=== PATIENT | female | born 1945 | race Caucasian/White ===

== ENCOUNTER 2020-08-08 20:45 | Inpatient (IN) | payer MEDICARE, SELFPAY ==
[2020-08-08 20:46] VITALS: BP 105/57; PULSE 95; RESP 16; TEMP 36.4; O2SAT 97; BMI 31.1
--- NOTE | 2020-08-08 21:02 | PC.NURSE ---
Received pt from home with c/o lower abdominal pain
--- NOTE | 2020-08-08 21:27 | XRR_ITS ---
PROCEDURE INFORMATION: Exam: XR Chest, 1 View Exam date and time: 08/08/2020 9:52 PM Age: 75 years old Clinical indication: Dyspnea; Additional info: SOB TECHNIQUE: Imaging protocol: XR of the chest Views: 1 view. COMPARISON: No relevant prior studies available. FINDINGS: Lungs: Emphysema with interstitial prominence in both lungs. Ground-glass opacity in the left lung base. Atelectasis in the right base. Pleural space: Unremarkable. No pleural effusion. No pneumothorax. Heart/Mediastinum: Unremarkable. No cardiomegaly. Bones/joints: Scoliosis. XR/XR chest 1V [id number] IMPRESSION: Ground-glass opacity in the left lung base could represent atelectasis or pneumonia.
--- NOTE | 2020-08-08 21:40 | ED_ITS ---
HPI - Back Pain/Injury General: Chief Complaint: Back Pain/Injury Stated Complaint: LOWER BACK PAIN Time Seen by Provider: 08/08/20 20:55 History of Present Illness: HPI Narrative: 75-year-old female presenting with right-sided lower back pain. No radicular pain down her leg. She says that she gets this kind of back pain with urinary tract infections, and it seems that that is the case. She also says she has been a little bit more short of breath lately but does not know why. She perhaps has been slightly coughing more than usual, though not much. She does not have a fever. There is no numbness, tingling, or weakness associated with her back pain. MD elicited complaint: back pain Pertinent past history: prior back pain Timing: constant Severity: moderate Quality: dull and stabbing Location: lumbar spine and right flank Radiation: none Exacerbating factors: movement Relieving factors: none Associated symptoms: Deny abdominal pain, chills, dysuria, fever(s), hematuria, nausea or vomiting Review of Systems Const: Denies: fever(s) or chills Eyes: Denies: change in vision ENMT: Denies: odynophagia or sinus pain Card: Denies: chest pain, palpitations or irregular heart rhythm Resp: Reports: dyspnea and non-productive cough; Denies: productive cough GI: Denies: abdominal pain, nausea, vomiting or melena : Denies: dysuria, urinary frequency or hematuria Musc: Reports: back pain; Denies: neck pain or joint redness Skin/Breast: Denies: rash or erythema Neuro: Denies: headache(s), dizziness, vertigo or confusion Psych: Denies: anxiety Physical Exam Const: GENERAL APPEARANCE: well developed ORIENTATION/CONSCIOUSNESS: Yes oriented to person, Yes oriented to place and Yes oriented to time HENMT: COMMON NORMALS: normocephalic, external ears normal and Normal external nose present HEAD & SCALP: normocephalic FACE & SINUS: normal facial exam NOSE: Normal external nose present and No nasal discharge present EXTERNAL EAR: Yes external ears normal Eye: COMMON NORMALS: Equal, round and reactive pupils present, EOMs intact bilaterally and conjunctivae normal EYELID: eyelids normal CONJUNCTIVA: Yes conjunctivae normal PUPIL: Yes Equal, round and reactive pupils present Neck/C-Spine: GENERAL: No tracheal deviation Chest: COMMONS NORMALS: normal inspection of the chest CHEST: No tenderness Resp: COMMON NORMALS: clear to auscultation bilaterally EFFORT & INSPECTION: No tachypneic, No respiratory distress, No retractions, No uses accessory muscles and No tracheal deviation AUSCULTATION: clear to auscultation bilaterally, no rhonchi, no wheezes and lung sounds not diminished Cardio: COMMON NORMALS: regular rate and regular rhythm RATE: regular rate RHYTHM: regular rhythm HEART SOUNDS: no murmurs PERIPHERAL PULSES: radial pulses present GI: INSPECTION: No abdominal distension AUSCULTATION: No Hyperactive bowel sounds present and No Hypoactive bowel sounds present PALPATION: No Guarding due to palpation present (GI) and No Rigid due to palpation PERCUSSION: no dullness to percussion and no tympanic to percussion Back/Pelvis: GENERAL BACK: Yes CVA tenderness CVA tenderness: right (mild) LUMBAR SPINE/LOWER BACK: Yes normal to inspection and Yes lumbar spinal tenderness (mild mid to lower) Neuro: SENSORIUM/ORIENTATION: Yes oriented to person, Yes oriented to place and Yes oriented to time Psych: COMMON NORMALS: mental status grossly normal Skin: COMMON NORMALS: no rashes or lesions noted GENERAL SKIN EXAM: no rashes or lesions noted Course Consultations: Consultation #1: jose Vital Signs: Vital signs: Vital Signs Temperature 97.4 F L 08/09/20 02:26 Pulse Rate 109 H 08/09/20 02:30 Respiratory Rate 22 H 08/09/20 02:30 Blood Pressure 107/90 08/09/20 02:30 Pulse Oximetry 100 08/09/20 02:29 MDM - Back Pain/Injury MDM Narrative: Medical decision making narrative: 75-year-old lady presents with back pain, and some shortness of breath. He has not had a fever. She has not had much of a cough. Was normotensive. Oxygen saturations have been good on 2 L. Her hemoglobin is 6.3. She notes now, that she has had transfusions before for anemia. BUN 38, creatinine 3.0. Potassium is normal. Chest x-ray showed some possible minimal basilar infiltrates bilaterally. Because of the anemia, and the back pain, CT was performed, and shows mild bibasilar infiltrates to the lungs. There is no fluid collection or evidence of aortic dissection. No renal abscess. She does have turbid, purulent urine. Levaquin was started for this. She will be rapid tested for Covid given the bibasilar infiltrates and shortness of breath, although her shortness of breath is likely coming from the profound anemia. She is crossmatched for 2 units so far. Lab Data: Labs: Lab Results 08/08/20 08/08/20 08/08/20 Range/Units 20:56 20:56 20:56 WBC 11.2 H (4.0-10.0) 10^3/ uL RBC 2.39 L (4.1-5.3) 10^6/u L Hgb 6.3 L* (11.5-15.3) g/dL Hct 21.2 L (37.0-47.0) % MCV 88.7 (81-99) fL MCH 26.4 L (28.0-34.0) pg MCHC 29.7 L (30.0-36.0) g/dL RDW 15.9 H (12.1-15.1) % Plt Count 306 (130-400) 10^3/c mm MPV 9.7 (7.4-10.4) fL Neut % (Auto) 85.5 % Lymph % (Auto) 9.7 % Glasscock % (Auto) 3.8 % Eos % (Auto) 0.2 % Baso % (Auto) 0.2 % Neut # (Auto) 9.57 H (1.8-7.7) 10^3/u L Lymph # (Auto) 1.1 (0.8-4.8) 10^3/u L Glasscock # (Auto) 0.4 (0.2-0.9) 10^3/u L Eos # (Auto) 0.0 (0.0-0.8) 10^3/u L Baso # (Auto) 0.0 (0.0-0.1) 10^3/u L Nucleated RBC % (a uto) 0 % Nucleated RBCs # 0.0 /100WBC Sodium 135 L (136-145) mmol/L Potassium 4.5 (3.5-5.1) mmol/L Chloride 98 (98-107) mmol/L Carbon Dioxide 19 L (22-29) mmol/L Anion Gap 22.5 H (5-19) BUN 38 H (8-23) mg/dL Creatinine 3.0 H (0.5-0.9) mg/dL GFR Calculation Not Reportable Glucose 194 H (65-115) mg/dL POC Glucose (70-110) mg/dL Calculated Osmolal ity 294 (285-295) mOsm/k g Lactate 2.5 H (0.5-2.2) mmol/L Calcium 9.2 (8.5-10.5) mg/dL Total Bilirubin 0.2 (0.15-1.2) mg/dL AST 22 (0-32) U/L ALT 10 (0-33) U/L Alkaline Phosphata se 142 H (35-105) IU/L C-Reactive Protein 249.9 H (0.0-4.9) mg/L Total Protein 7.8 (6.6-8.7) g/dL Albumin 3.4 L (3.5-5.2) g/dL Globulin 4.4 (1.3-4.6) g/dL Procalcitonin 0.56 H (0-0.5) ng/mL Urine Color (Yellow) Urine Appearance (CLEAR) Urine pH (5-7) Ur Specific Gravit y (1.005-1.030) Urine Protein (Negative) Urine Glucose (UA) (Normal) Urine Ketones (Negative) Urine Blood (Negative) Urine Nitrate (Negative) Urine Bilirubin (Negative) Urine Urobilinogen (Negative) mg/dL Ur Leukocyte Tiffany ase (Negative) Urine RBC (0-2) /hpf Urine WBC (0-5) /hpf Ur Squamous Epith Cells (0-5) /hpf Amorphous Sediment Urine Bacteria (NONE) /hpf Blood Type Rho(D) Type Antibody Screen Crossmatch 08/08/20 08/09/20 08/09/20 Range/Units 22:58 00:09 00:55 WBC (4.0-10.0) 10^3/ uL RBC (4.1-5.3) 10^6/u L Hgb (11.5-15.3) g/dL Hct (37.0-47.0) % MCV (81-99) fL MCH (28.0-34.0) pg MCHC (30.0-36.0) g/dL RDW (12.1-15.1) % Plt Count (130-400) 10^3/c mm MPV (7.4-10.4) fL Neut % (Auto) % Lymph % (Auto) % Glasscock % (Auto) % Eos % (Auto) % Baso % (Auto) % Neut # (Auto) (1.8-7.7) 10^3/u L Lymph # (Auto) (0.8-4.8) 10^3/u L Glasscock # (Auto) (0.2-0.9) 10^3/u L Eos # (Auto) (0.0-0.8) 10^3/u L Baso # (Auto) (0.0-0.1) 10^3/u L Nucleated RBC % (a uto) % Nucleated RBCs # /100WBC Sodium (136-145) mmol/L Potassium (3.5-5.1) mmol/L Chloride (98-107) mmol/L Carbon Dioxide (22-29) mmol/L Anion Gap (5-19) BUN (8-23) mg/dL Creatinine (0.5-0.9) mg/dL GFR Calculation Glucose (65-115) mg/dL POC Glucose 252 (70-110) mg/dL Calculated Osmolal ity (285-295) mOsm/k g Lactate (0.5-2.2) mmol/L Calcium (8.5-10.5) mg/dL Total Bilirubin (0.15-1.2) mg/dL AST (0-32) U/L ALT (0-33) U/L Alkaline Phosphata se (35-105) IU/L C-Reactive Protein (0.0-4.9) mg/L Total Protein (6.6-8.7) g/dL Albumin (3.5-5.2) g/dL Globulin (1.3-4.6) g/dL Procalcitonin (0-0.5) ng/mL Urine Color Straw (Yellow) Urine Appearance Turbid (CLEAR) Urine pH 5 (5-7) Ur Specific Gravit y 1.015 (1.005-1.030) Urine Protein Trace (Negative) Urine Glucose (UA) Norm (Normal) Urine Ketones Negative (Negative) Urine Blood 3+ H (Negative) Urine Nitrate Positive H (Negative) Urine Bilirubin Neg (Negative) Urine Urobilinogen Norm (Negative) mg/dL Ur Leukocyte Tiffany ase 2+ H (Negative) Urine RBC 5-10 H (0-2) /hpf Urine WBC Too numerous to c nt H (0-5) /hpf Ur Squamous Epith Cells 5-10 H (0-5) /hpf Amorphous Sediment Not Reportable Urine Bacteria 4+ H (NONE) /hpf Blood Type A Positive Rho(D) Type Positive Antibody Screen Negative Crossmatch See Detail Discharge Plan Discharge Patient Disposition: Admitted As Inpatient Clinical Impression: Urinary tract infection Qualifiers: Urinary tract infection type: acute cystitis Hematuria presence: without hematuria Qualified Code(s): N30.00 - Acute cystitis without hematuria Anemia Qualifiers: Anemia type: iron deficiency Iron deficiency anemia type: unspecified iron deficiency Qualified Code(s): D50.9 - Iron deficiency anemia, unspecified Condition: Stable Coding Level of Care Code 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
--- NOTE | 2020-08-08 21:40 | PC.NURSE ---
Pt to [facility]. Unable to void
--- NOTE | 2020-08-08 21:49 | PC.NURSE ---
Notified provider pt unable to provide a sample of Urine. per provider okay to drink water.
[2020-08-08 22:53] VITALS: BP 137/60; PULSE 89; RESP 18; O2SAT 98
[2020-08-08 23:32] LABS: Glucose Urine UA Norm (Normal); Ketones Urine Negative (Negative); Protein Urine Trace (Negative); Specific Gravity, Urine 1.015 (1.005-1.030); Urine Appearance Turbid (CLEAR); Urine Color Straw (Yellow); pH Urine 5 (5-7)
[2020-08-08 23:33] LABS: Add Urine Microscopic? YES; Bilirubin Urine Neg (Negative); Blood Urine 3+ (Negative); Leukocyte Esterase Urine 2+ (Negative); Nitrate Urine Positive (Negative); Urobilinogen Urine Norm (Negative)
[2020-08-08 23:34] LABS: Add Urine Culture? Yes; Bacteria Urine 4+ /hpf; WBC Urine TOO NUMEROUS TO CNT /hpf (0-5)
[2020-08-08 23:37] VITALS: BP 120/74; PULSE 89; RESP 18; O2SAT 100
[2020-08-08 23:43] LABS: Basophils % 0.2 %; Eosinophils % 0.2 %; Hematocrit 21.2 % (37.0-47.0); Lymphocytes # 1.1 10^3/uL (0.8-4.8); Lymphocytes % 9.7 %; Mean Corpuscular HGB Conc 29.7 g/dL (30.0-36.0); Mean Corpuscular Hemoglobin 26.4 pg (28.0-34.0); Mean Corpuscular Volume 88.7 fL (81-99); Mean Platelet Volume 9.7 fL (7.4-10.4); Monocytes # 0.4 10^3/uL (0.2-0.9); Monocytes % 3.8 %; Neutrophils # 9.57 10^3/uL (1.8-7.7); Neutrophils % 85.5 %; Nucleated Red Blood Cells % 0 %; Platelet Count 306 10^3/cmm (130-400); Red Blood Count 2.39 10^6/uL (4.1-5.3); Red Cell Distribution Width 15.9 % (12.1-15.1); White Blood Count 11.2 10^3/uL (4.0-10.0)
[2020-08-08 23:52] LABS: Hemoglobin 6.3 g/dL (11.5-15.3)
[2020-08-08 23:57] LABS: Alanine Aminotransferase 10 U/L (0-33); Albumin Level 3.4 g/dL (3.5-5.2); Alkaline Phosphatase 142 IU/L (35-105); Anion Gap 22.5 (5-19); Aspartate Amino Transferase 22 U/L (0-32); Blood Urea Nitrogen 38 mg/dL (8-23); C Reactive Protein 249.9 mg/L (0.0-4.9); Calcium 9.2 mg/dL (8.5-10.5); Carbon Dioxide 19 mmol/L (22-29); Chloride 98 mmol/L (98-107); Globulin 4.4 g/dL (1.3-4.6); Glucose 194 mg/dL (65-115); Osmolality Calculated 294 mOsm/kg (285-295); Potassium 4.5 mmol/L (3.5-5.1); Sodium 135 mmol/L (136-145); Total Bilirubin 0.2 mg/dL (0.15-1.2); Total Protein 7.8 g/dL (6.6-8.7)
[2020-08-09] VITALS (129 sets, daily range): BP systolic 88–158; BP diastolic 53–90; PULSE 68–112; RESP 11–30; TEMP 36.3–37; O2SAT 84–100
[2020-08-09] LABS: Lactate (Lactic Acid level) 2.5 mmol/L (0.5-2.2)
[2020-08-09 00:13] LABS: Glucose Point of Care 252 mg/dL (70-110)
--- NOTE | 2020-08-09 00:17 | CTR_ITS ---
PROCEDURE INFORMATION: Exam: CT Abdomen And Pelvis Without Contrast Exam date and time: 08/09/2020 12:21 AM Age: 75 years old Clinical indication: Abdominal pain; Right; Patient HX: C/O R flank pain and anemia; Additional info: Back pain, anemia TECHNIQUE: Imaging protocol: Computed tomography of the abdomen and pelvis without contrast. Radiation optimization: All CT scans at this facility use at least one of these dose optimization techniques: automated exposure control; mA and/or kV adjustment per patient size (includes targeted exams where dose is matched to clinical indication); or iterative reconstruction. COMPARISON: [facility] Renal 01/25/2018 9:10 AM RADIATION DOSE METRICS: Total DLP (mGy-cm): 1244.95 FINDINGS: Lungs: Bibasilar relatively symmetric pulmonary parenchymal abnormalities are noted with ground-glass components. Liver: Normal. No mass. Gallbladder and bile ducts: 4 mm calcification within gallbladder is suspected to represent gallstone. Gallbladder is otherwise unremarkable. Pancreas: Normal. No ductal dilation. Spleen: Calcified splenic granulomatous change noted. Adrenal glands: Normal. No mass. Kidneys and ureters: Mild/early atrophy of right kidney. Scarring also seen at upper right kidney. No hydronephrosis. Stomach and bowel: Colonic diverticuli noted. No evident pericolic inflammatory change. No findings of abnormal bowel distention. Appendix: No evidence of appendicitis. Intraperitoneal space: Unremarkable. No free air. No significant fluid collection. Vasculature: Vascular calcifications are noted. No abdominal aortic aneurysm. Lymph nodes: Unremarkable. No enlarged lymph nodes. Urinary bladder: Unremarkable as visualized. Reproductive: Unremarkable as visualized. Bones/joints: No acute fracture. Soft tissues: Umbilical hernia contains a short segment of transverse colon that does not appear obstructed. CT/CT abdomen pelvis wo con [id number] IMPRESSION: Bibasilar pulmonary infiltrates are favored to be either inflammatory or infectious. Gallstone in gallbladder. Umbilical hernia containing nonobstructed colon. Additional details as above. Radiation Dose CTDIVOL = (mGy): DLP = 1244.95 (mGy-cm)
--- NOTE | 2020-08-09 00:43 | ECG_ITS ---
[facility] Test Date: 2020-08-09 Pat Name: Susan Resendiz Department: Room: ICU19 Gender: Female Data Engineer: : 1945 Requested By: Michael Pena Order Number: [id number] Anaid MD: MEHNAZ TAVERAS Measurements Intervals [place] Rate: 86 P: 64 FL: 147 QRS: 58 QRSD: 88 T: 57 QT: 340 QTc: 409 Interpretive Statements SINUS RHYTHM LOW QRS VOLTAGE IN PRECORDIAL LEADS [QRS DEFLECTION < 1.0 mV IN CHEST LEADS] INTERPRETATION BASED ON A DEFAULT AGE OF 40 YEARS Compared to ECG 01/23/2018 17:53:53 No significant changes Electronically Signed On 08-09-2020 15:47:23 RADIO COMMUNICATIONS MECHANICIAN by MEHNAZ TAVERAS [id number] f
[2020-08-09 00:56] LABS: Procalcitonin 0.56 ng/mL (0-0.5)
--- NOTE | 2020-08-09 01:00 | PC.NURSE ---
Consent sign for blood transfusion
[2020-08-09] MEDS: sodium chloride 0.9% 1,000 ML 999 ML IV (01:13)
[2020-08-09] MEDS: sodium chloride 0.9% 100 mL Bag 50 ML IV (01:13)
[2020-08-09] MEDS: levofloxacin-dextrose 5 % 500 MG/100 ML PREMIX 100 MG IV (01:18)
--- NOTE | 2020-08-09 01:24 | PC.NURSE ---
Prep for blood transfusion Pt c/o about back pain and being uncomfortable. Notified provider.
[2020-08-09] MEDS: morphine 4 mg/mL SDV 1 mL 2 MG IVP ×2 (01:35→09:05)
[2020-08-09] MEDS: ondansetron 2 mg/ML SDV 2 mL 4 MG IVP ×4 (01:35→12:00)
--- NOTE | 2020-08-09 02:27 | PC.NURSE ---
Admitting provider at bedside
--- NOTE | 2020-08-09 02:29 | PC.NURSE ---
Pt stated she uses 4L NC of oxygen at home
--- NOTE | 2020-08-09 02:33 | PC.NURSE ---
L BP 117/74 R 126/70
--- NOTE | 2020-08-09 02:42 | PC.NURSE ---
Pt continues to vomit undigested food. provider aware, order for medication for vomiting. Pt removed 02 to clean nose. SP02 dropped to 87%. Replaced 02 at NC 4L, return to 96% within a few minutes.
--- NOTE | 2020-08-09 02:45 | PC.NURSE ---
Pt state I think I have a UTI
[2020-08-09] MEDS: metoclopramide 5 mg/mL SDV 2 mL IVP (02:49)
[2020-08-09] MEDS: FUROsemide 10 mg/mL SDV 2mL 20 MG IVP ×2 (02:54→06:34)
--- NOTE | 2020-08-09 02:57 | PM.HP ---
Providers/Chief Complaint Admitting Physician: Brian Mcdonough MD Chief Complaint: LOWER BACK PAIN History of Present Illness Susan Resendiz is a 75 year old female with PMH of COPD on 4L home oxygen came in with c/o Lower back pain as well as worsening sob for the last 3 days,according to her she think these are her UTI symptoms ( back pain, worsening SOB on minimal exertion). upon arrival in the ER she was worked up for above mentioned complaints.As a part of work up Rapid COVID was also ordered.RAPID COVID came back Positive. Imaging Studies : CT abdomen pelvis wo con: Bibasilar pulmonary infiltrates are favored to be either inflammatory or infectious. Gallstone in gallbladder. Umbilical hernia containing nonobstructed colon. Xray Chest : Ground-glass opacity in the left lung base could represent atelectasis or pneumonia. EKG : Pending imaging studies: CT chest without contrast: Pertinent labs: WBC 11.2 , H&H:6.3/21.2 , BUN/creatinine: 38/3 (baseline creatinine not known) , lactic acid: 2.5 , procalcitonin: 0.56 , Medications in ER: Levofloxacin 500 MG IV x1 1 dose, she also got Reglan and Zofran, she was typed and crossed for 2 units, and also received 1 L normal saline. Morphine sulfate 2 mg IV one-time dose. Review of Systems Const: Denies: fever(s), chills, body aches, change in appetite or diaphoresis Card: Denies: palpitations, edema or swelling of feet/ankles Resp: Denies: wheezing or pain on inspiration GI: Denies: abdominal pain, diarrhea or constipation Musc: Denies: extremity pain or extremity swelling Neuro: Denies: headache(s), difficulty walking or confusion Medications/Allergies Allergies Allergy/AdvReac Type Severity Reaction Status Date / Time penicillin G Allergy Severe ALGY-Swell Verified 08/09/20 01:05 Lip/Tongue/Throat Vitals/I&O/Wt Last Vital Signs Temp 97.4 F L 08/09/20 02:26 Pulse 109 H 08/09/20 02:30 Resp 22 H 08/09/20 02:30 BP 107/90 08/09/20 02:30 Pulse Ox 100 08/09/20 02:29 08/08/20 08/08/20 08/09/20 14:59 22:59 06:59 Intake Total 0 / 0 Output Total 50 / 50 Balance -50 / -50 Weight last 48 hrs Weight 79.832 kg Physical Exam Const: COMMON NORMALS: patient oriented x3 HENMT: COMMON NORMALS: normocephalic and atraumatic HEAD & SCALP: normocephalic and atraumatic EXTERNAL EAR: Yes external ears normal Eye: COMMON NORMALS: no scleral icterus Chest: COMMONS NORMALS: normal inspection of the chest and normal palpation of entire chest wall CHEST: Yes Symmetrical chest wall rise Resp: EFFORT & INSPECTION: Yes symmetric chest movement OTHER: Bilateral basal crackles present in both the lungs, air entry diminished in both lung field Cardio: COMMON NORMALS: regular rate, regular rhythm, S1 normal heart sound present, S2 normal heart sound present, No gallops present (Cardio), No murmurs present (Cardio), No rub (Cardio) and Peripheral pulses 2+ throughout RATE: regular rate RHYTHM: regular rhythm HEART SOUNDS: S1 normal heart sound present and S2 normal heart sound present PERIPHERAL PULSES: Peripheral pulses 2+ throughout GI: COMMON NORMALS: Normal to inspection, nondistended, normoactive bowel sounds present, Soft to palpation, non-tender, No hepatosplenomegaly present and no masses AUSCULTATION: Yes normoactive bowel sounds PALPATION: Yes Soft to palpation and Yes No hepatosplenomegaly present RECTAL EXAM: deferred Extremity: COMMON NORMALS: no clubbing, cyanosis or edema and no pedal edema Neuro: COMMON NORMALS: patient oriented x3 Data : 08/08/20 20:56 08/08/20 20:56 A&P Assessment and plan (1) Pneumonia due to COVID-19 virus: Patient came in with chief complaint of, worsening shortness of breath, with minimal exertion, was nauseous, but multiple vomiting episodes in the ER. Trend cytokine storm markers (D-dimer, ESR, CRP, ferritin, IL-6) Got remdesivir 200 mg IV one-time dose, based on her creatinine clearance will not continue with the maintenance dose. Decadron 6 mg IV x1 dose Supplemental oxygen Nebs Imipenem for possible superimposed bacterial pneumonia. Status: Acute (2) Respiratory failure with hypoxia: Acute on chronic hypoxemic respiratory likely secondary to Covid pneumonia Plan is 1 Status: Acute (3) Anemia: Anemia panel Likely anemia of inflammatory disease Receiving 2 units of blood transfusion Monitor CBC Status: Acute (4) COPD (chronic obstructive pulmonary disease): Plan as 1 Status: Acute (5) UTI (urinary tract infection): On Primax Status: Acute (6) Acute kidney injury superimposed on CKD: ZACK on worsening CKD stage 3 Random urine sodium creatinine protein Renal ultrasound Status: Acute Additional A&P Information DVT prophylaxis: Heparin 5000 every 12 SQ daily CODE STATUS: Full code Disposition: Home Attestations Medical Necessity Statement*: Patient needs to be admitted in hospital for the management of respiratory failure 2/2 Covid pneumonia. Anticipated length of stay greater than 2 midnight Coding Level of Care Code Acute Neuropsychologist for [facility] Fwd Diagnoses Pneumonia due to COVID-19 virus U07.1; J12.89 Respiratory failure with hypoxia J96.91 Anemia D64.9 COPD (chronic obstructive pulmonary disease) J44.9 UTI (urinary tract infection) N39.0 Acute kidney injury superimposed on CKD N17.9; N18.9
--- NOTE | 2020-08-09 03:03 | PC.NURSE ---
Pt continues to vomit with undigested food and water. Okayed by provider to have a few ice chips
[2020-08-09 03:07] LABS: SARS Covid-2 Antigen Positive (Negative)
--- NOTE | 2020-08-09 03:12 | CTR_ITS ---
PROCEDURE INFORMATION: Exam: CT Chest Without Contrast; Diagnostic Exam date and time: 08/09/2020 3:17 AM Age: 75 years old Clinical indication: Dyspnea; Additional info: SOB TECHNIQUE: Imaging protocol: Diagnostic computed tomography of the chest without contrast. Radiation optimization: All CT scans at this facility use at least one of these dose optimization techniques: automated exposure control; mA and/or kV adjustment per patient size (includes targeted exams where dose is matched to clinical indication); or iterative reconstruction. COMPARISON: [facility] (CHEST, ) 08/08/2020 9:42 PM RADIATION DOSE METRICS: Total DLP (mGy-cm): 757.22 FINDINGS: Lungs: Emphysema is noted most conspicuously in upper lobes. Bilateral pulmonary infiltrates are favored to be infectious/inflammatory. Pleural space: Unremarkable. No pneumothorax. No pleural effusion. Heart: Unremarkable. No cardiomegaly. No pericardial effusion. Aorta: Aortic calcifications are noted. No findings of aneurysm or mediastinal hemorrhage. Great vessels off aortic arch: Aberrant right subclavian artery. Lymph nodes: Unremarkable. No enlarged lymph nodes. Bones/joints: No acute fracture. Soft tissues: Unremarkable. CT/CT chest con [id number] IMPRESSION: Bilateral pulmonary infiltrates favored to be infectious/inflammatory; correlation for viral pneumonia recommended. Underlying emphysema noted. Radiation Dose CTDIVOL = (mGy): DLP = 757.22 (mGy-cm)
--- NOTE | 2020-08-09 04:00 | PC.NURSE ---
[facility] staff X1 via ernie. Patient transferred to VICU bed with help of nursing staff X3 without incident. Once situated in bed, assessment complete. Personal belongings placed by bedside and included purse/phone/clothes/glasses. Patient arrived on 4L NC, and continued to stay on 4L NC throughout remainder of shift. SPO2 97-99%. Patient does not tolerate turns or laying flat more than 30 seconds at a time, and is very unsteady on feet. RBC infusing at time of arrival. After completion of transfusion, labs were drawn 1 hour after. Room orientation finished. Call light in reach.
[2020-08-09] MEDS: dexamethasone 4 mg/mL INJ 6 MG IVP (04:30)
[2020-08-09] MEDS: heparin 5,000 unit/mL INJ 1 mL 5000 UNIT SUBCUT ×2 (04:31→16:06)
[2020-08-09 04:32] LABS: D Dimer 1.28 ug/mIFEU (0-0.59)
[2020-08-09] MEDS: azithromycin 500 MG in sodium chloride 0.9% 250 ML 250 MG IV (04:53)
[2020-08-09 05:01] LABS: Glucose Point of Care 280 mg/dL (70-110)
[2020-08-09 06:53] LABS: Troponin(5th) Baseline 13 ng/L (0-10)
[2020-08-09 07:27] LABS: C Reactive Protein 239.2 mg/L (0.0-4.9); Ferritin 100 ng/mL (15-150); NT Pro B Type Natriuretic Pept 726 pg/mL (0-450)
[2020-08-09 08:12] LABS: Glucose Point of Care 310 mg/dL (70-110)
--- NOTE | 2020-08-09 08:12 | PC.NURSE ---
During assessment, RN noticed patient to have increased amounts of crackles in bases and throughout. And verbalized concern with patient's inability to tolerate turns/laying flat for longer than 30 seconds at a time. MD occupational therapy instructor notified, to which he came down to VICU to assess patient. He relayed new findings of increased crackles in bases/throughout and gave v/o for Lasix to be given now with a em catheter placed to decrease incident of desaturation in SPO2 status. After admin of lasix, RN to give second unit of RBC, with v/o to give lasix again if patient had even more increased s/s of crackles in lung sounds. VICU hospital staff pharmacist X3 attempted to place em catheter. At first patient was found to be so extremely excoriated to the point tips of em catheters were completely occluded and would not allow for urine return, despite sterile saline attempts of irrigation to dislodge. Second em cath kit used in efforts to place after manually attempting to irrigate. Em unable to be placed. Findings were relayed to dayshift RN.
[2020-08-09] MEDS: pantoprazole DR 40 mg Tablet PO (08:20)
[2020-08-09 08:41] LABS: Iron 14 ug/dL (37-145); Lactate Dehydrogenase 310 U/L (135-214); Percent Saturation 7.9 % (20-50); Total Iron Binding Capacity 177 mcg/dl; Unsaturated Iron Binding 163 ug/dL (112-347)
[2020-08-09 08:55] LABS: Hemoglobin 6.9 g/dL (11.5-15.3)
[2020-08-09 09:13] LABS: Troponin 5 2HR 14.54 ng/L (0-10); Troponin 5 2HR Delta 1.54 ABS# (0-10)
[2020-08-09 09:51] LABS: ABG PCO2 38.6 mmHg (35-45); ABG PH Result 7.38 (7.35-7.45); Arterial Blood Gas Hematocrit 24.7 % (37-47); Base Excess ABG -2.1 mmol/L (-2.0-2.0); Blood Gas Allen Test Pos; Blood Gas Sample Site Radial, left; Blood Gas Sample Type Arterial; HCO3 ABG 22.8 mmol/L (22-26)
[2020-08-09 09:52] LABS: Oxygen Device NC
--- NOTE | 2020-08-09 10:35 | PC.NURSE ---
Nurse Inserted em catheter. Drained 1 liter of urine. Initially clear, then became thick and white. Nurse collected specimen and sent to lab. Patient became much less restless and was no longer having and increased work of breathing, is now able to tolerate laying flat and turning. Patient educated on prone positioning, but stated she was unable to do so. She is now able to lay on her sides and turn. Nurse educated patient on reasoning and importance of turning.
--- NOTE | 2020-08-09 10:48 | PC.NURSE ---
Dr vail notified of patent em catheter and improved work of breathing. Received an order for 60 mg furosemie IVP - PRN blood transfusion if patient develops crackles. .
[2020-08-09 11:02] LABS: Creatinine Urine, Random 13 mg/dL (28-217)
[2020-08-09 11:06] LABS: Erythrocyte Sedimentation Rate > 120 mm/hr (0-15)
[2020-08-09 11:08] LABS: Urine Random Sodium 93 mmol/L
[2020-08-09] MEDS: sodium chloride 0.9% (100 ml) 100 ML 30 ML (11:25)
[2020-08-09 11:42] LABS: Urine Protein Random 89 mg/dL
[2020-08-09 12:00] LABS: Glucose Point of Care 240 mg/dL (70-110)
--- NOTE | 2020-08-09 13:59 | P.PN_ITS ---
Subjective Subjective: Interval history: She reports she is feeling better. Shortness of breath is better. Denies headache. No chest pain. No further nausea or vomiting. No diarrhea. Vitals/I&O/Wt Last Vital Signs Temp 97.8 F 08/09/20 12:46 Pulse 88 08/09/20 12:46 Resp 20 H 08/09/20 12:46 BP 149/74 08/09/20 12:46 Pulse Ox 90 08/09/20 12:46 08/08/20 08/09/20 08/09/20 22:59 06:59 14:59 Intake Total 1120 / 1120 390 / 390 Output Total 500 / 500 1200 / 1200 Balance 620 / 620 -810 / -810 Weight last 48 hrs Weight 86.069 kg Weight 79.832 kg Physical Exam Const: COMMON NORMALS: no acute distress, patient oriented x3 and alert GENERAL APPEARANCE: comfortable ORIENTATION/CONSCIOUSNESS: Yes awake OTHER: Pleasant, conversant. Slightly hard of hearing. HENMT: COMMON NORMALS: oropharynx normal Neck/C-Spine: COMMON NORMALS: no JVD Resp: COMMON NORMALS: normal respiratory effort and clear to auscultation bilaterally AUSCULTATION: clear to auscultation bilaterally Cardio: COMMON NORMALS: no JVD, regular rhythm, S1 normal heart sound present, S2 normal heart sound present and No murmurs present (Cardio) RHYTHM: regular rhythm HEART SOUNDS: S1 normal heart sound present and S2 normal heart sound present GI: COMMON NORMALS: Normal to inspection, nondistended, normoactive bowel sounds present, Soft to palpation and non-tender PALPATION: Yes Soft to palpation : OTHER: Low draining purulent appearing urine. Extremity: COMMON NORMALS: no joint enlargement and no pedal edema Neuro: COMMON NORMALS: patient oriented x3 and moves all extremities SENSORIUM/ORIENTATION: Yes alert Skin: COMMON NORMALS: no rashes or lesions noted GENERAL SKIN EXAM: no rashes or lesions noted Urinary Catheter Management^: Low: Cath Placed During This Visit: yes Reason for Continuing Indwelling Catheter: Accurate Measurement of Urinary Output in Critically Ill Patients Urinary Catheter Date of Insertion: 08/09/20 Urinary Catheter Time of Insertion: 10:13 Data : 08/09/20 08:29 08/08/20 20:56 A&P Assessment and plan (1) Pneumonia due to COVID-19 virus: She reports overall she is feeling somewhat better. She denies any complaints related to her breathing. She is not coughing. Not producing any phlegm. Requiring 4 L oxygen by nasal cannula. No nausea, vomiting, diarrhea. At this time continue Decadron DuoNeb, Tessalon Perles. PPI due to anemia. Currently at baseline supplemental oxygen Imipenem, azithromycin for possible superimposed bacterial pneumonia. D-dimer 1.28. For now heparin subcu for prophylaxis only given acute anemia. Status: Acute (2) Respiratory failure with hypoxia: Acute on chronic hypoxemic respiratory likely secondary to Covid pneumonia As above. Status: Acute (3) Anemia: Iron deficiency anemia. Hemoccult ordered. She says recently had Hemoccult in office which was negative. 3 years ago had a colonoscopy and also one before that which were negative. Reports may have an EGD, but longer than that. Reports that was normal as well. Denies any hematuria. Denies any vaginal bleeding. Does not appear to be hemolyzing. Does have chronic renal disease, and likely component of anemia of chronic disease. Check B12, folic acid. Follow-up SPEP, UPEP, light chains, immunofixation. Hold iron supplementation for now with acute infection, as discussed with her, resume after she recovers. Says iron supplementation was recently started by her primary care provider. Receiving 2 units of blood transfusion Lasix PRN if fluid overload. With noted fluid overload last night. Status: Acute (4) COPD (chronic obstructive pulmonary disease): As above. Status: Acute (5) UTI (urinary tract infection): On Primaxin. Follow cultures. Possible sepsis, although does not strictly fit criteria with minimal leukocytosis, intermittent tachycardia to 100s, intermittent tachypnea as high as 30. Reported difficulties with placement of Low catheter, with noted retraction of urethra. Surrounding edema. She denies any history of fistulization with GI tract. Denies any gas or fecal matter in the urine. Complicated UTI with possible urinary retention as she felt much better after drainage of the bladder. Low catheter placed with some difficulty, with obtained 1000 mL. Should follow-up with urology subsequently. Has seen the urologist about 7 years ago. May benefit from topical estrogen. No noted urinary obstruction. Status: Acute (6) Acute kidney injury superimposed on CKD: ZACK on worsening CKD stage 3. Reports after condition in her youth. Random urine sodium creatinine protein No obstructive uropathy noted on CT. SPEP, UPEP, light chains, immunofixation. Status: Acute Additional A&P Information Abnormal troponin: Troponin series checked this morning with mild elevation. Has no chest pain. Suspected demand ischemia. DVT prophylaxis: Heparin 5000 every 12 SQ daily CODE STATUS: Full code Disposition: Home Attestations Medical Necessity Statement*: Continue admission for assessment management of complicated UTI, acute on chronic anemia, COVID-19 infection. Coding Level of Care Code Acute Well Reactivator Operator for [facility] Fwd Diagnoses Pneumonia due to COVID-19 virus U07.1; J12.89 Respiratory failure with hypoxia J96.91 Anemia D64.9 COPD (chronic obstructive pulmonary disease) J44.9 UTI (urinary tract infection) N39.0 Acute kidney injury superimposed on CKD N17.9; N18.9
[2020-08-09 15:12] LABS: Folate Level 12.2 ng/mL (4.8-37.3)
[2020-08-09 15:13] LABS: Vitamin B12 611 pg/mL (232-1245)
[2020-08-09 17:03] LABS: Glucose Point of Care 315 mg/dL (70-110)
--- NOTE | 2020-08-09 18:00 | PC.NURSE ---
Nurse noticed fingerstick glucose readings have been ranging between 240-310 throughout the day, with the most recent being 310, despite having little to no appetite. Patient is currently on a low dose insulin in the hospital. Nurse questioned patient as to what their normal dosing and glucose levels are at home. Patient states that their glucose levels at home usually range between 90-120 and it is managed with 24 units of long acting insulin at bed time. Nurse alerted Dr barrera and received new orders. Increasing sliding scale to the moderate protocol. Added 10 units of lantus at bed time.
--- NOTE | 2020-08-09 18:34 | PC.NURSE ---
Shift Summary - initially patient came in with shortness of breath with occasional tripod positioning to catch breath, urinary incontinence, and pain in the groin due to severe excoriation and swelling. After placement of a Low catheter, 1 liter of purulent urine was drained. Patient's difficulty breathing has since resolved and she is on 4lNC, which is what she is on at home. Patient no longer reports pain to the groin. Since then today has been uneventful. a second unit of blood was infused due to low HGB levels and has been receiving antibiotics. PT is a type 2 diabetic who is insulin controlled at home. Insulin dosing regimen has recently been changed (see previous nurse note).
--- NOTE | 2020-08-09 20:15 | PC.NURSE ---
Patient repostioned in bed and fresh ice water given to drink.
[2020-08-09 20:46] LABS: Glucose Point of Care 337 mg/dL (70-110)
[2020-08-09] MEDS: insulin glargine 100 units/1 mL 10 UNIT SUBCUT (20:51)
[2020-08-10] VITALS (75 sets, daily range): BP systolic 95–139; BP diastolic 38–83; PULSE 62–108; RESP 14–32; TEMP 36.2–37; O2SAT 84–100; BMI 33.6
[2020-08-10] MEDS: dexamethasone 4 mg/mL INJ 6 MG IVP (03:50)
[2020-08-10] MEDS: heparin 5,000 unit/mL INJ 1 mL 5000 UNIT SUBCUT (03:51)
[2020-08-10] MEDS: azithromycin 500 MG in sodium chloride 0.9% 250 ML 250 MG IV (04:26)
[2020-08-10 04:50] LABS: Basophils % 0.1 %; Lymphocytes # 0.9 10^3/uL (0.8-4.8); Lymphocytes % 8.1 %; Mean Corpuscular Hemoglobin 27.5 pg (28.0-34.0); Mean Corpuscular Volume 88.9 fL (81-99); Mean Platelet Volume 10.8 fL (7.4-10.4); Monocytes # 0.5 10^3/uL (0.2-0.9); Monocytes % 4.9 %; Neutrophils # 9.36 10^3/uL (1.8-7.7); Nucleated Red Blood Cells % 0 %; Platelet Count 303 10^3/cmm (130-400); Red Blood Count 2.07 10^6/uL (4.1-5.3); Red Cell Distribution Width 15.7 % (12.1-15.1); White Blood Count 10.9 10^3/uL (4.0-10.0)
[2020-08-10 05:25] LABS: Hematocrit 18.4 % (37.0-47.0); Hemoglobin 5.7 g/dL (11.5-15.3)
[2020-08-10 05:28] LABS: Alanine Aminotransferase 9 U/L (0-33); Albumin Level 2.7 g/dL (3.5-5.2); Alkaline Phosphatase 113 IU/L (35-105); Blood Urea Nitrogen 45 mg/dL (8-23); Carbon Dioxide 26 mmol/L (22-29); Chloride 102 mmol/L (98-107); Globulin 4.3 g/dL (1.3-4.6); Glucose 165 mg/dL (65-115); Osmolality Calculated 303 mOsm/kg (285-295); Sodium 139 mmol/L (136-145); Total Bilirubin 0.2 mg/dL (0.15-1.2)
[2020-08-10 05:33] LABS: Anion Gap 17.2 (5-19); Aspartate Amino Transferase 20 U/L (0-32); Potassium 6.2 mmol/L (3.5-5.1)
[2020-08-10 05:38] LABS: INR 1.07 (0.8-1.2)
--- NOTE | 2020-08-10 05:40 | PC.NURSE ---
H&H Lab called critical value to nurse. Hemoglobin of 5.7 and hematocrit of 18.4. Dr. Mcdonough verbally notified while in VICU and gave order for 2 units of PRBC with 20 mg lasix IVP between units, and draw H&H 1 hour after 2 unit infused.
[2020-08-10 06:21] LABS: Partial Thromboplastin Time 35.9 SECONDS (23.9-36.7)
[2020-08-10 07:00] LABS: D Dimer 2.37 ug/mIFEU (0-0.59)
[2020-08-10 07:38] LABS: C Reactive Protein 191.8 mg/L (0.0-4.9)
[2020-08-10 07:47] LABS: Glucose Point of Care 241 mg/dL (70-110)
[2020-08-10 07:47] LABS: Magnesium 2.1 mg/dL (1.7-2.3)
--- NOTE | 2020-08-10 09:15 | PC.RESP ---
Pulmonary Rehab information sent to patient.
[2020-08-10] MEDS: pantoprazole DR 40 mg Tablet PO (10:00)
[2020-08-10] MEDS: sodium chloride 0.9% (100 ml) 200 ML (10:11)
[2020-08-10 11:43] LABS: Creatinine, Random Urine 13 mg/dL (20-275); Protein, Total, Random 162 mg/dL (5-24); Protein/Creatinine Ratio 12462 mg/g creat (21-161)
[2020-08-10 11:44] LABS: Glucose Point of Care 356 mg/dL (70-110)
[2020-08-10 12:18] LABS: PROTEIN, TOTAL 6.6 g/dL (6.1-8.1)
[2020-08-10] MEDS: FUROsemide 10 mg/mL SDV 2mL 20 MG IVP (12:41)
[2020-08-10 15:09] LABS: Troponin 5 6HR 7.64 ng/L (0-10)
[2020-08-10 15:11] LABS: Troponin 5 6HR Delta -5.36 ng/L (0-12)
[2020-08-10 15:18] LABS: KAPPA LIGHT CHAIN, FREE, SERUM 194.3 mg/L (3.3-19.4); KAPPA/LAMBDA LIGHT CHAINS FREE 1.37 (0.26-1.65); LAMBDA LIGHT CHAIN, FREE, SERU 141.5 mg/L (5.7-26.3)
--- NOTE | 2020-08-10 17:07 | P.PN_ITS ---
Subjective Subjective: Interval history: She states that overall she is feeling better. Definitely much better than admission. She had an episode of vomiting last night, says that she had eaten a ham sandwich and subsequently vomited up. Denies any blood in the vomitus. Denies any coffee-ground contents. She has had no bowel movement. Denies abdominal pain. Vitals/I&O/Wt Last Vital Signs Temp 98.3 F 08/10/20 16:17 Pulse 78 08/10/20 16:17 Resp 20 H 08/10/20 16:17 BP 119/63 08/10/20 16:17 Pulse Ox 95 08/10/20 16:17 08/10/20 08/10/20 08/10/20 06:59 14:59 22:59 Intake Total 580 / 1660 2300 / 2300 350 / 2650 Output Total 1000 / 3050 475 / 475 Balance -420 / -1390 1825 / 1825 350 / 2175 Weight last 48 hrs Weight 86.069 kg Weight 86.069 kg Weight 79.832 kg Physical Exam Const: COMMON NORMALS: no acute distress, patient oriented x3 and alert GENERAL APPEARANCE: cooperative and comfortable ORIENTATION/CONSCIOUSNESS: Yes awake OTHER: Pleasant, conversant. Slightly hard of hearing. HENMT: COMMON NORMALS: oropharynx normal Neck/C-Spine: COMMON NORMALS: no JVD Resp: COMMON NORMALS: normal respiratory effort and clear to auscultation bilaterally AUSCULTATION: clear to auscultation bilaterally Cardio: COMMON NORMALS: no JVD, regular rhythm, S1 normal heart sound present, S2 normal heart sound present and No murmurs present (Cardio) RHYTHM: regular rhythm HEART SOUNDS: S1 normal heart sound present and S2 normal heart sound present GI: COMMON NORMALS: Normal to inspection, nondistended, normoactive bowel so unds present, Soft to palpation and non-tender PALPATION: Yes Soft to palpation : OTHER: Low Extremity: COMMON NORMALS: no joint enlargement and no pedal edema Neuro: COMMON NORMALS: patient oriented x3 and moves all extremities SENSORIUM/ORIENTATION: Yes alert Skin: COMMON NORMALS: no rashes or lesions noted GENERAL SKIN EXAM: no rashes or lesions noted Urinary Catheter Management^: Low: Cath Placed During This Visit: yes Reason for Continuing Indwelling Catheter: Accurate Measurement of Urinary Output in Critically Ill Patients Urinary Catheter Date of Insertion: 08/09/20 Urinary Catheter Time of Insertion: 10:13 Data : 08/10/20 04:00 08/10/20 04:00 Micro: Microbiology 08/08/20 22:58 Urine Culture - Final Urine,Clean Catch A&P Assessment and plan (1) Anemia: Acute anemia. States that this is a somewhat recurrent issue. Says that she had seen a glass toughening operator in the past, although that was about 15 years ago. Subsequently says anemia with recurrent again, and was investigated by Dr. Ojeda with upper and lower endoscopy. Today hemoglobin is down again to 5.7. Receiving additional PRBC transfusion. Change PPI to IV twice daily dosing. Discontinue Decadron, heparin. Collect Hemoccult. Had an episode of vomiting yesterday. Suspect gastritis or PUD. No BRBPR. No significant hematuria. No bleeding elsewhere. Iron deficiency anemia. She says recently had Hemoccult in office which was negative. 3 years ago had a colonoscopy and also one before that which were negative. Reports may have an EGD, but longer than that. Reports that was normal as well. Does not appear to be hemolyzing. Not low hapto. No splenomegaly. Does have chronic renal disease, and likely component of anemia of chronic disease. Check peripheral smear. Normal B12, folic acid. Normal kappa lambda ratio, normal pattern immunofixation. Hold iron supplementation for now with acute infection, as discussed with her, resume after she recovers. Says iron supplementation was recently started by her primary care provider. Status: Acute (2) Pneumonia due to COVID-19 virus: Oxygenation is stable. Requiring 4 L oxygen by nasal cannula which is close to her baseline, although says at home uses oxygen mostly at night. Decadron stopped. At this time continue Radha Tidwell. PPI due to anemia. Imipenem, azithromycin for possible superimposed bacterial pneumonia. Obtain sputum culture. Bacterial antigens. DC heparin. SCD. Status: Acute (3) Respiratory failure with hypoxia: Acute on chronic hypoxemic respiratory failure likely secondary to Covid pneumonia stabilized. Gradually improving. Treatment currently limited by recurrent severe anemia. As above. Status: Acute (4) COPD (chronic obstructive pulmonary disease): As above. Status: Acute (5) UTI (urinary tract infection): On Primaxin. Unfortunately cultures unrevealing. Will reculture. Possible sepsis improved. Reported difficulties with placement of Low catheter, with noted retraction of urethra. Surrounding edema. She denies any history of fistulization with GI tract. Denies any gas or fecal matter in the urine. Complicated UTI with possible urinary retention as she felt much better after dr natarajan of the bladder. Low catheter placed with some difficulty, with obtained 1000 mL. Should follow-up with urology subsequently. Has seen the urologist about 7 years ago. May benefit from topical estrogen. No noted urinary obstruction. Status: Acute (6) Acute kidney injury superimposed on CKD: ZACK on worsening CKD stage 3. Reports after pyelonephritis in her youth. Random urine sodium creatinine protein No obstructive uropathy noted on CT. SPEP, UPEP, unremarkable light chain ratio, normal immunofixation. Status: Acute Additional A&P Information Abnormal troponin: Suspected demand ischemia. DVT prophylaxis: SCD CODE STATUS: Full code Disposition: Home Continue admission for assessment management of recurrent severe anemia, COVID- 19 infection, possible sepsis, UTI, possible superimposed pulmonary bacterial infection. Attestations Medical Necessity Statement*: Continue admission for assessment management of recurrent severe anemia, COVID-19 infection, possible sepsis, UTI, possible superimposed pulmonary bacterial infection. Coding Level of Care Code Acute Manager Filter for [facility] Fwd Exam Comprehensive Diagnoses Anemia D64.9 Pneumonia due to COVID-19 virus U07.1; J12.89 Respiratory failure with hypoxia J96.91 COPD (chronic obstructive pulmonary disease) J44.9 UTI (urinary tract infection) N39.0 Acute kidney injury superimposed on CKD N17.9; N18.9
[2020-08-10 17:09] LABS: Glucose Point of Care 325 mg/dL (70-110)
--- NOTE | 2020-08-10 18:21 | PC.NURSE ---
Addendum entered by Allyson Zurita RN 08/10/20 18:25: Blood sugars have ran high today, over 300 at lunch and dinner. Pt's diet had been changed to consistent carb. Original Note: Shift summary: Pt has rested in bed this shift. She is alert, oriented and pleasant. No complaints of pain. Hgb and Hct low this am. Pt received 2 units of PRBCs today. She is actually pinker this evening. No stool today to collect occult. Lasix admin between units of blood. Pt had over 1900 ml of pale yellow urine with tiny amount of sediment noted. No coughing noted. Lungs remain clear. Pt on 4lpm/NC.
[2020-08-10 18:40] LABS: LAB Peripheral Smear Sent for Review
[2020-08-10 18:42] LABS: Hemoglobin 10.4 g/dL (11.5-15.3)
--- NOTE | 2020-08-10 18:54 | PC.NURSE ---
Report given to SPEEDY Bazan.
[2020-08-10 20:06] LABS: Glucose Point of Care 245 mg/dL (70-110)
[2020-08-10] MEDS: insulin glargine 100 units/1 mL 10 UNIT SUBCUT (20:32)
[2020-08-10] MEDS: pantoprazole 40 mg SDV IVP (20:32)
[2020-08-11] VITALS (20 sets, daily range): BP systolic 117–150; BP diastolic 64–88; PULSE 64–99; RESP 17–25; TEMP 36.8–37; O2SAT 92–97
[2020-08-11 02:56] LABS: Basophils % 0.2 %; Hematocrit 33.5 % (37.0-47.0); Hemoglobin 10.6 g/dL (11.5-15.3); Lymphocytes # 0.8 10^3/uL (0.8-4.8); Lymphocytes % 8.2 %; Mean Corpuscular HGB Conc 31.6 g/dL (30.0-36.0); Mean Corpuscular Hemoglobin 27.6 pg (28.0-34.0); Mean Corpuscular Volume 87.2 fL (81-99); Mean Platelet Volume 9.5 fL (7.4-10.4); Monocytes # 0.5 10^3/uL (0.2-0.9); Neutrophils # 8.34 10^3/uL (1.8-7.7); Neutrophils % 85.6 %; Nucleated Red Blood Cells % 0 %; Platelet Count 315 10^3/cmm (130-400); Red Blood Count 3.84 10^6/uL (4.1-5.3); Red Cell Distribution Width 15.5 % (12.1-15.1); White Blood Count 9.8 10^3/uL (4.0-10.0)
[2020-08-11 03:25] LABS: D Dimer 2.77 ug/mIFEU (0-0.59)
[2020-08-11 03:29] LABS: Alanine Aminotransferase 11 U/L (0-33); Albumin Level 2.8 g/dL (3.5-5.2); Alkaline Phosphatase 102 IU/L (35-105); Anion Gap 17.1 (5-19); Aspartate Amino Transferase 16 U/L (0-32); Blood Urea Nitrogen 56 mg/dL (8-23); Carbon Dioxide 27 mmol/L (22-29); Chloride 97 mmol/L (98-107); Globulin 4.3 g/dL (1.3-4.6); Glucose 90 mg/dL (65-115); Osmolality Calculated 297 mOsm/kg (285-295); Potassium 5.1 mmol/L (3.5-5.1); Sodium 136 mmol/L (136-145); Total Bilirubin 0.2 mg/dL (0.15-1.2); Total Protein 7.1 g/dL (6.6-8.7)
[2020-08-11 03:32] LABS: C Reactive Protein 80.1 mg/L (0.0-4.9)
[2020-08-11] MEDS: azithromycin 500 MG in sodium chloride 0.9% 250 ML 250 MG IV (04:00)
[2020-08-11 08:43] LABS: Glucose Point of Care 75 mg/dL (70-110)
[2020-08-11 09:17] LABS: Albumin,Urine Random 30 %; Alpha-1-Globulins Urine Random 2 %; Alpha-2-Globulins Urine Random 5 %; Beta-Globulin,Urine Random 29 %; Gamma Globulin,Urine Random 35 %
[2020-08-11 09:47] LABS: ALBUMIN 2.5 g/dL (3.8-4.8); ALPHA 1 GLOBULIN 0.7 g/dL (0.2-0.3); ALPHA 2 GLOBULIN 1.1 g/dL (0.5-0.9); BETA 1 GLOBULIN 0.4 g/dL (0.4-0.6); BETA 2 GLOBULIN 0.6 g/dL (0.2-0.5); GAMMA GLOBULIN 1.3 g/dL (0.8-1.7)
[2020-08-11 12:02] LABS: Glucose Point of Care 171 mg/dL (70-110)
[2020-08-11 17:07] LABS: Glucose Point of Care 211 mg/dL (70-110)
--- NOTE | 2020-08-11 18:55 | PC.NURSE ---
Shift summary: Pt had an uneventful day. Blood sugars are improved today, 211 at dinner being the highest today. Yesterday they were over 300mg/dl. Lung sounds clear. O2 decreased to 2lpm. Pt assisted with bathing. she had a hard nap this afternoon; entering her room did not wake her. 1100ml fo pale yellow urine with minimal sediment. noted.
--- NOTE | 2020-08-11 19:52 | PM.PN ---
Subjective Subjective: Interval history: She is doing better. She is eating, drinking all right. Denies significant eructation. No further vomiting. No abdominal pain. Still has not had a bowel movement. Vitals/I&O/Wt Last Vital Signs Temp 98.3 F 08/11/20 18:00 Pulse 89 08/11/20 18:00 Resp 24 H 08/11/20 18:00 BP 121/88 08/11/20 18:00 Pulse Ox 95 08/11/20 18:00 08/11/20 08/11/20 08/11/20 06:59 14:59 22:59 Intake Total 350 / 3800 1400 / 1400 600 / 2000 Output Total 1050 / 3775 1100 / 1100 Balance -700 / 25 1400 / 1400 -500 / 900 Weight last 48 hrs Weight 86.069 kg Physical Exam Const: COMMON NORMALS: no acute distress, patient oriented x3 and alert GENERAL APPEARANCE: cooperative and comfortable ORIENTATION/CONSCIOUSNESS: Yes awake OTHER: Pleasant, conversant. Slightly hard of hearing. HENMT: COMMON NORMALS: oropharynx normal Neck/C-Spine: COMMON NORMALS: no JVD Resp: COMMON NORMALS: normal respiratory effort and clear to auscultation bilaterally AUSCULTATION: clear to auscultation bilaterally Cardio: COMMON NORMALS: no JVD, regular rhythm, S1 normal heart sound present, S2 normal heart sound present and No murmurs present (Cardio) RHYTHM: regular rhythm HEART SOUNDS: S1 normal heart sound present and S2 normal heart sound present GI: COMMON NORMALS: Normal to inspection, nondistended, normoactive bowel sounds present, Soft to palpation and non-tender PALPATION: Yes Soft to palpation : OTHER: Low Extremity: COMMON NORMALS: no joint enlargement and no pedal edema Neuro: COMMON NORMALS: patient oriented x3 and moves all extremities SENSORIUM/ORIENTATION: Yes alert Skin: COMMON NORMALS: no rashes or lesions noted GENERAL SKIN EXAM: no rashes or lesions noted Urinary Catheter Management^: Low: Cath Placed During This Visit: yes Reason for Continuing Indwelling Catheter: Accurate Measurement of Urinary Output in Critically Ill Patients Urinary Catheter Date of Insertion: 08/09/20 Urinary Catheter Time of Insertion: 10:13 Data : 08/11/20 02:15 08/11/20 02:15 Micro: Microbiology 08/10/20 21:00 Bacterial Antigens - Final Urine,Voided 12/07/20 21:00 Legionella Urinary Antigen - Final Urine Catheterized A&P Assessment and plan (1) Anemia: She responded well to PRBC transfusion. Anemia appears to have stabilized. No further vomiting. So far no bowel movement. Recheck blood count in the morning. Acute anemia. States that this is a somewhat recurrent issue. Says that she had seen a display and banner designer in the past, although that was about 15 years ago. Subsequently says anemia with recurrent again, and was investigated by Dr. Ojeda with upper and lower endoscopy. PPI was changed to IV, however, we ran out off IV medication. Will change back to oral. Decadron, heparin were held due to recurrent anemia. Requested Hemoccult. Suspect gastritis or PUD. No BRBPR. No significant hematuria. No bleeding elsewhere. Iron deficiency anemia. She says recently had Hemoccult in office which was negative. 3 years ago had a colonoscopy and also one before that which were negative. Reports may have an EGD, but longer than that. Reports that was normal as well. Does not appear to be hemolyzing. Not low hapto. No splenomegaly. Does have chronic renal disease, and likely component of anemia of chronic disease. Reuqested peripheral smear. Normal B12, folic acid. Normal kappa lambda ratio, normal pattern immunofixation. Hold iron supplementation for now with acute infection, as discussed with her, resume after she recovers. Says iron supplementation was recently started by her primary care provider. Status: Acute (2) Pneumonia due to COVID-19 virus: Oxygenation is stable and now actually improving. At home she says uses oxygen mostly only at night, 4 L. Currently down to 2 L nasal cannula. Subjectively she continues to improve. Since she remained stable, anemia appears stabilized, will see if we can transfer her upstairs. Decadron stopped. At this time continue Radha Tidwell. PPI due to anemia. Imipenem, azithromycin for possible superimposed bacterial pneumonia. Obtain sputum culture. Bacterial antigens negative. DC heparin. SCD. Status: Acute (3) Respiratory failure with hypoxia: As above. Acute on chronic hypoxemic respiratory failure likely secondary to Covid pneumonia stabilized and gradually improving. Treatment limited by recurrent severe anemia. Status: Acute (4) COPD (chronic obstructive pulmonary disease): As above. Status: Acute (5) UTI (urinary tract infection): On Primaxin. Continue. Follow up repeat cultures. Unfortunately initial cultures unrevealing. Culture repeated 08/10. Had quite purulent appearing urine. Possible sepsis improved. Reported difficulties with placement of Low catheter, with noted retraction of urethra. Surrounding edema. She denies any history of fistulization with GI tract. Denies any gas or fecal matter in the urine. Complicated UTI with possible urinary retention as she felt much better after drainage of the bladder. Low catheter placed with some difficulty, with obtained 1000 mL. Should follow-up with urology subsequently. Has seen the urologist about 7 years ago. May benefit from topical estrogen. No noted urinary obstruction. Status: Acute (6) Acute kidney injury superimposed on CKD: With improvement. Cr 2.9 Post-renal by FENa. May be ATN with persistent Cr level despite relief of retention. ZACK on worsening CKD stage 3. Reports after pyelonephritis in her youth. No obstructive uropathy noted on CT. SPEP, UPEP, Unremarkable light chain ratio, normal immunofixation. Status: Acute Additional A&P Information Abnormal troponin: Suspected demand ischemia. DVT prophylaxis: SCD CODE STATUS: Full code Disposition: Home Attestations Medical Necessity Statement*: Continue admission for assessment management of recurrent severe anemia, COVID-19 infection, UTI, possible superimposed pulmonary bacterial infection. Coding Level of Care Code Acute White Spooler for g Fwd Diagnoses Anemia D64.9 Pneumonia due to COVID-19 virus U07.1; J12.89 Respiratory failure with hypoxia J96.91 COPD (chronic obstructive pulmonary disease) J44.9 UTI (urinary tract infection) N39.0 Acute kidney injury superimposed on CKD N17.9; N18.9
[2020-08-11 20:10] LABS: Glucose Point of Care 220 mg/dL (70-110)
[2020-08-11] MEDS: HYDROcodone-acetaminophen 5-325 mg Tablet 1 TAB PO (20:20)
[2020-08-11] MEDS: insulin glargine 100 units/1 mL 10 UNIT SUBCUT (20:21)
[2020-08-11] MEDS: pantoprazole DR 40 mg Tablet PO (20:21)
[2020-08-11] MEDS: albuterol 8 gm MDI 2 PUFF INHALATION (20:45)
[2020-08-11] MEDS: polyethylene glycol 3350 Pkt 17 gm PO (23:00)
[2020-08-12] VITALS (16 sets, daily range): BP systolic 120–160; BP diastolic 65–100; PULSE 73–113; RESP 15–25; TEMP 36.6–36.9; O2SAT 88–95
[2020-08-12 05:41] LABS: Basophils % 0.1 %; Eosinophils % 0.5 %; Hematocrit 33.7 % (37.0-47.0); Hemoglobin 10.7 g/dL (11.5-15.3); Lymphocytes # 1.2 10^3/uL (0.8-4.8); Lymphocytes % 16.1 %; Mean Corpuscular HGB Conc 31.8 g/dL (30.0-36.0); Mean Corpuscular Hemoglobin 27.6 pg (28.0-34.0); Mean Corpuscular Volume 87.1 fL (81-99); Mean Platelet Volume 9.1 fL (7.4-10.4); Monocytes # 0.5 10^3/uL (0.2-0.9); Monocytes % 6.8 %; Neutrophils # 5.63 10^3/uL (1.8-7.7); Neutrophils % 75.6 %; Nucleated Red Blood Cells % 0 %; Platelet Count 303 10^3/cmm (130-400); Red Blood Count 3.87 10^6/uL (4.1-5.3); Red Cell Distribution Width 15.6 % (12.1-15.1); White Blood Count 7.5 10^3/uL (4.0-10.0)
[2020-08-12] MEDS: azithromycin 500 MG in sodium chloride 0.9% 250 ML 250 MG IV (05:54)
[2020-08-12 06:03] LABS: Alanine Aminotransferase 9 U/L (0-33); Albumin Level 2.8 g/dL (3.5-5.2); Alkaline Phosphatase 94 IU/L (35-105); Aspartate Amino Transferase 13 U/L (0-32); Blood Urea Nitrogen 50 mg/dL (8-23); Calcium 8.5 mg/dL (8.5-10.5); Carbon Dioxide 25 mmol/L (22-29); Chloride 97 mmol/L (98-107); Glucose 110 mg/dL (65-115); Magnesium 1.9 mg/dL (1.7-2.3); Osmolality Calculated 290 mOsm/kg (285-295); Sodium 133 mmol/L (136-145); Total Bilirubin 0.2 mg/dL (0.15-1.2); Total Protein 6.8 g/dL (6.6-8.7)
[2020-08-12 06:04] LABS: C Reactive Protein 50.4 mg/L (0.0-4.9)
[2020-08-12 06:31] LABS: D Dimer 3.29 ug/mIFEU (0-0.59)
[2020-08-12 08:28] LABS: Glucose Point of Care 87 mg/dL (70-110)
[2020-08-12] MEDS: pantoprazole DR 40 mg Tablet PO ×2 (09:22→17:20)
[2020-08-12] MEDS: polyethylene glycol 3350 Pkt 17 gm PO ×2 (09:22→17:20)
--- NOTE | 2020-08-12 10:48 | PM.PN ---
Subjective Subjective: Interval history: Patient reports doing better. Breathing more comfortably. Denies cough. Denies chest pain or abdominal pain. She had no bowel movement yet and just took a laxative. She has Low catheter in draining light yellow urine. Reports that her appetite and oral intake is improving. Creatinine improving. Vitals/I&O/Wt Last Vital Signs Temp 98 F 08/12/20 08:00 Pulse 88 08/12/20 08:55 Resp 16 08/12/20 08:54 BP 128/73 08/12/20 08:00 Pulse Ox 94 08/12/20 08:54 08/11/20 08/12/20 08/12/20 22:59 06:59 14:59 Intake Total 750 / 2150 600 / 2750 850 / 850 Output Total 1100 / 1100 500 / 1600 Balance -350 / 1050 100 / 1150 850 / 850 Weight last 48 hrs Weight 86 kg Physical Exam Const: COMMON NORMALS: no acute distress and patient oriented x3 Resp: COMMON NORMALS: normal respiratory effort OTHER: Minimal bibasilar Rales. Cardio: COMMON NORMALS: regular rate, regular rhythm and S2 normal heart sound present RATE: regular rate RHYTHM: regular rhythm HEART SOUNDS: S2 normal heart sound present OTHER: No lower extremity edema GI: COMMON NORMALS: Normal to inspection, nondistended, normoactive bowel sounds present, Soft to palpation and non-tender PALPATION: Yes Soft to palpation Neuro: COMMON NORMALS: patient oriented x3 and no focal motor deficits Urinary Catheter Management^: Low: Cath Placed During This Visit: yes Reason for Continuing Indwelling Catheter: Accurate Measurement of Urinary Output in Critically Ill Patients Urinary Catheter Date of Insertion: 08/09/20 Urinary Catheter Time of Insertion: 10:13 Data : 08/12/20 05:15 08/12/20 05:15 Micro: Microbiology 08/10/20 21:00 Urine Culture - Preliminary Urine Catheterized 08/10/20 21:00 Bacterial Antigens - Final Urine,Voided A&P Assessment and plan (1) Anemia: She responded well to PRBC transfusion. Anemia appears to have stabilized. No further vomiting. So far no bowel movement. Recheck blood count in the morning. Acute anemia. States that this is a somewhat recurrent issue. Says that she had seen a lawnmower mechanic in the past, although that was about 15 years ago. Subsequently says anemia with recurrent again, and was investigated by Dr. Ojeda with upper and lower endoscopy. PPI was changed to IV, however, we ran out off IV medication. Will change back to oral. Decadron, heparin were held due to recurrent anemia. Requested Hemoccult. Suspect gastritis or PUD. No BRBPR. No significant hematuria. No bleeding elsewhere. Iron deficiency anemia. She says recently had Hemoccult in office which was negative. 3 years ago had a colonoscopy and also one before that which were negative. Reports may have an EGD, but longer than that. Reports that was normal as well. Does not appear to be hemolyzing. Not low hapto. No splenomegaly. Does have chronic renal disease, and likely component of anemia of chronic disease. Reuqested peripheral smear. Normal B12, folic acid. Normal kappa lambda ratio, normal pattern immunofixation. Hold iron supplementation for now with acute infection, as discussed with her, resume after she recovers. Says iron supplementation was recently started by her primary care provider. Status: Acute (2) Pneumonia due to COVID-19 virus: Oxygenation is stable and now actually improving. At home she says uses oxygen mostly only at night, 4 L. Currently down to 2 L nasal cannula. Subjectively she continues to improve. Since she remained stable, anemia appears stabilized, will see if we can transfer her upstairs. Decadron stopped. At this time continue Radha Tidwell. PPI due to anemia. Imipenem, azithromycin for possible superimposed bacterial pneumonia. Obtain sputum culture. Bacterial antigens negative. DC heparin. SCD. Status: Acute (3) Respiratory failure with hypoxia: As above. Acute on chronic hypoxemic respiratory failure likely secondary to Covid pneumonia stabilized and gradually improving. Treatment limited by recurrent severe anemia. Status: Acute (4) COPD (chronic obstructive pulmonary disease): As above. Status: Acute (5) UTI (urinary tract infection): On Primaxin. Continue. Follow up repeat cultures. Unfortunately initial cultures unrevealing. Culture repeated 08/10. Had quite purulent appearing urine. Possible sepsis improved. Reported difficulties with placement of Low catheter, with noted retraction of urethra. Surrounding edema. She denies any history of fistulization with GI tract. Denies any gas or fecal matter in the urine. Complicated UTI with possible urinary retention as she felt much better after drainage of the bladder. Low catheter placed with some difficulty, with obtained 1000 mL. Should follow-up with urology subsequently. Has seen the urologist about 7 years ago. May benefit from topical estrogen. No noted urinary obstruction. Status: Acute (6) Acute kidney injury superimposed on CKD: With improvement. Cr 2.9 Post-renal by FENa. May be ATN with persistent Cr level despite relief of retention. ZACK on worsening CKD stage 3. Reports after pyelonephritis in her youth. No obstructive uropathy noted on CT. SPEP, UPEP, Unremarkable light chain ratio, normal immunofixation. Status: Acute Additional A&P Information Abnormal troponin: Suspected demand ischemia. DVT prophylaxis: SCD CODE STATUS: Full code Disposition: Home PLAN: Continue current monitoring and treatment including antibiotic. Decadron currently on hold due to concern for upper GI bleed/peptic ulcer disease. Because of kidney function remdesivir was not initiated. Wean off oxygen as saturations permit. We will transfer patient to medical turner. Keep Olw catheter in as patient will require outpatient follow-up with urology. If patient continues to improve we will likely be able to dismiss patient home in a day or 2. Attestations Medical Necessity Statement*: Patient with COVID-19 pneumonia, acute kidney injury and UTI requires close inpatient monitoring and treatment until deemed safe for discharge Time Spent in Patient Care: 16 - 35 minutes Coding Level of Care Code Acute Well Logging Operator Mud Analysis for g Fwd Diagnoses Anemia D64.9 Pneumonia due to COVID-19 virus U07.1; J12.89 Respiratory failure with hypoxia J96.91 COPD (chronic obstructive pulmonary disease) J44.9 UTI (urinary tract infection) N39.0 Acute kidney injury superimposed on CKD N17.9; N18.9
[2020-08-12 12:09] LABS: Glucose Point of Care 267 mg/dL (70-110)
--- NOTE | 2020-08-12 15:12 | PC.SOCIAL ---
Pg 2 IMM Explained to pt's friend, Jony, Pg 2 IMM, via phone. No questions voiced. Signed, dated, & timed a copy to be scanned into chart.
[2020-08-12 16:55] LABS: Glucose Point of Care 188 mg/dL (70-110)
--- NOTE | 2020-08-12 19:01 | PC.NURSE ---
Report given to SPEEDY Armando. Shift summary: pt has had an uneventful day. She has been up to chair since lunch. She sat on BSC, unable to have BM. O2 has been decreased to 2lpm/NC, the lowest O2 sats 88% with activity She has tolerated it well. She did have oxygen off this evening, sats 87-88% , Oxygen placed back on sats right back above 90%.
[2020-08-12] MEDS: albuterol 8 gm MDI 2 PUFF INHALATION (20:10)
[2020-08-12 20:17] LABS: Glucose Point of Care 251 mg/dL (70-110)
[2020-08-12] MEDS: insulin glargine 100 units/1 mL 10 UNIT SUBCUT (20:37)
[2020-08-12 22:43] LABS: Interleukin 6 (IL-6) Serum 110.37 pg/mL (<5.00)
[2020-08-13] VITALS (10 sets, daily range): BP systolic 108–129; BP diastolic 67–80; PULSE 90–116; RESP 17–24; TEMP 36.7–36.8; O2SAT 91–98; BMI 33.7
[2020-08-13] MEDS: azithromycin 500 MG in sodium chloride 0.9% 250 ML 250 MG IV (05:24)
[2020-08-13 08:00] LABS: Glucose Point of Care 96 mg/dL (70-110)
[2020-08-13] MEDS: albuterol 8 gm MDI 2 PUFF INHALATION ×3 (08:35→22:09)
[2020-08-13] MEDS: polyethylene glycol 3350 Pkt 17 gm PO (08:39)
[2020-08-13] MEDS: pantoprazole DR 40 mg Tablet PO ×2 (08:39→17:13)
--- NOTE | 2020-08-13 10:45 | PM.PN ---
Subjective Subjective: Interval history: Patient reports doing better. Denies chest pain or abdominal pain. She finally was able to have bowel movement which looked black as per RN. She saturates 91% this morning on 2.5 L of oxygen. It appears that patient did not receive remdesivir after her initial 20 mg dose. She had 5 days of azithromycin. Vitals/I&O/Wt Last Vital Signs Temp 98.2 F 08/13/20 08:00 Pulse 99 08/13/20 08:35 Resp 17 08/13/20 08:35 BP 127/80 08/13/20 08:00 Pulse Ox 91 08/13/20 08:35 08/12/20 08/13/20 08/13/20 22:59 06:59 14:59 Intake Total 1800 / 3150 100 / 3250 480 / 480 Output Total 1650 / 1650 1750 / 3400 Balance 150 / 1500 -1650 / -150 480 / 480 Weight last 48 hrs Weight 86.438 kg Weight 86 kg Physical Exam Const: COMMON NORMALS: no acute distress and patient oriented x3 Resp: COMMON NORMALS: normal respiratory effort OTHER: Minimal bibasilar Rales. Cardio: COMMON NORMALS: regular rate, regular rhythm and S2 normal heart sound present RATE: regular rate RHYTHM: regular rhythm HEART SOUNDS: S2 normal heart sound present OTHER: No lower extremity edema GI: COMMON NORMALS: Normal to inspection, nondistended, normoactive bowel sounds present, Soft to palpation and non-tender PALPATION: Yes Soft to palpation Neuro: COMMON NORMALS: patient oriented x3 and no focal motor deficits Urinary Catheter Management^: Low: Cath Placed During This Visit: yes Reason for Continuing Indwelling Catheter: Accurate Measurement of Urinary Output in Critically Ill Patients Urinary Catheter Date of Insertion: 08/09/20 Urinary Catheter Time of Insertion: 10:13 Data : 08/12/20 05:15 08/12/20 05:15 Micro: Microbiology 08/13/20 09:41 Occult Blood (FIT) - Final Stool - Stool Aspirate 08/10/20 21:00 Urine Culture - Final Urine Catheterized A&P Assessment and plan (1) Anemia: She responded well to PRBC transfusion. Anemia appears to have stabilized. No further vomiting. So far no bowel movement. Recheck blood count in the morning. Acute anemia. States that this is a somewhat recurrent issue. Says that she had seen a fish checker in the past, although that was about 15 years ago. Subsequently says anemia with recurrent again, and was investigated by Dr. Ojeda with upper and lower endoscopy. PPI was changed to IV, however, we ran out off IV medication. Will change back to oral. Decadron, heparin were held due to recurrent anemia. Requested Hemoccult. Suspect gastritis or PUD. No BRBPR. No significant hematuria. No bleeding elsewhere. Iron deficiency anemia. She says recently had Hemoccult in office which was negative. 3 years ago had a colonoscopy and also one before that which were negative. Reports may have an EGD, but longer than that. Reports that was normal as well. Does not appear to be hemolyzing. Not low hapto. No splenomegaly. Does have chronic renal disease, and likely component of anemia of chronic disease. Reuqested peripheral smear. Normal B12, folic acid. Normal kappa lambda ratio, normal pattern immunofixation. Hold iron supplementation for now with acute infection, as discussed with her, resume after she recovers. Says iron supplementation was recently started by her primary care provider. Status: Acute (2) Pneumonia due to COVID-19 virus: Oxygenation is stable and now actually improving. At home she says uses oxygen mostly only at night, 4 L. Currently down to 2 L nasal cannula. Subjectively she continues to improve. Since she remained stable, anemia appears stabilized, will see if we can transfer her upstairs. Decadron stopped. At this time continue Diann, Radha Strickland. PPI due to anemia. Imipenem, azithromycin for possible superimposed bacterial pneumonia. Obtain sputum culture. Bacterial antigens negative. DC heparin. SCD. Status: Acute (3) Respiratory failure with hypoxia: As above. Acute on chronic hypoxemic respiratory failure likely secondary to Covid pneumonia stabilized and gradually improving. Treatment limited by recurrent severe anemia. Status: Acute (4) COPD (chronic obstructive pulmonary disease): As above. Status: Acute (5) UTI (urinary tract infection): On Primaxin. Continue. Follow up repeat cultures. Unfortunately initial cultures unrevealing. Culture repeated 08/10. Had quite purulent appearing urine. Possible sepsis improved. Reported difficulties with placement of Low catheter, with noted retraction of urethra. Surrounding edema. She denies any history of fistulization with GI tract. Denies any gas or fecal matter in the urine. Complicated UTI with possible urinary retention as she felt much better after drainage of the bladder. Low catheter placed with some difficulty, with obtained 1000 mL. Should follow-up with urology subsequently. Has seen the urologist about 7 years ago. May benefit from topical estrogen. No noted urinary obstruction. Status: Acute (6) Acute kidney injury superimposed on CKD: With improvement. Cr 2.9 Post-renal by FENa. May be ATN with persistent Cr level despite relief of retention. ZACK on worsening CKD stage 3. Reports after pyelonephritis in her youth. No obstructive uropathy noted on CT. SPEP, UPEP, Unremarkable light chain ratio, normal immunofixation. Status: Acute Additional A&P Information Abnormal troponin: Suspected demand ischemia. Highly suspect acute upper GI bleed. Likely secondary to steroid induced gastritis/peptic ulcer disease or AVM bleed. DVT prophylaxis: SCD CODE STATUS: Full code Disposition: Home PLAN: Continue high-dose Protonix Avoid NSAIDs and steroids. Repeat labs this a.m. and check iron studies, B12 and folate. Discontinue azithromycin and start patient on remdesivir Continue physical therapy. I do not think further evaluation with upper endoscopy or colonoscopy will be beneficial. Attestations Medical Necessity Statement*: Patient with COVID-19 pneumonia as well as upper GI bleed requires close inpatient monitoring and treatment until deemed safe for discharge. Coding Level of Care Code Acute Instrumentation Technician for Chg Fwd Diagnoses Anemia D64.9 Pneumonia due to COVID-19 virus U07.1; J12.89 Respiratory failure with hypoxia J96.91 COPD (chronic obstructive pulmonary disease) J44.9 UTI (urinary tract infection) N39.0 Acute kidney injury superimposed on CKD N17.9; N18.9
[2020-08-13] MEDS: remdesivir 100 MG in sodium chloride 0.9% (100 ml) 100 ML IV (11:46)
[2020-08-13 11:50] LABS: Glucose Point of Care 304 mg/dL (70-110)
--- NOTE | 2020-08-13 12:48 | PC.NURSE ---
Patients initial BM today was black hard and round, patient then has had 2 BM to follow and last BM was soft formed and brown, patient reports feeling much more relief and no further abdominal discomfort.
[2020-08-13 12:49] LABS: Ferritin 131 ng/mL (15-150); Iron 14 ug/dL (37-145)
[2020-08-13 13:05] LABS: Vitamin B12 383 pg/mL (232-1245)
[2020-08-13 13:06] LABS: Folate Level 10.1 ng/mL (4.8-37.3)
[2020-08-13 13:15] LABS: Alanine Aminotransferase 6 U/L (0-33); Albumin Level 2.5 g/dL (3.5-5.2); Alkaline Phosphatase 98 IU/L (35-105); Anion Gap 14.9 (5-19); Aspartate Amino Transferase 12 U/L (0-32); Blood Urea Nitrogen 44 mg/dL (8-23); Calcium 8.4 mg/dL (8.5-10.5); Carbon Dioxide 25 mmol/L (22-29); Chloride 96 mmol/L (98-107); Globulin 4.1 g/dL (1.3-4.6); Glucose 317 mg/dL (65-115); Osmolality Calculated 295 mOsm/kg (285-295); Potassium 4.9 mmol/L (3.5-5.1); Sodium 131 mmol/L (136-145); Total Bilirubin 0.2 mg/dL (0.15-1.2); Total Protein 6.6 g/dL (6.6-8.7)
[2020-08-13 13:56] LABS: Iron 12 ug/dL (37-145); Percent Saturation 6.1 % (20-50); Total Iron Binding Capacity 196 mcg/dl; Unsaturated Iron Binding 184 ug/dL (112-347)
[2020-08-13 14:24] LABS: Basophils % 0.3 %; Eosinophils # 0.1 10^3/uL (0.0-0.8); Eosinophils % 0.8 %; Hemoglobin 11.5 g/dL (11.5-15.3); Lymphocytes # 1.1 10^3/uL (0.8-4.8); Lymphocytes % 9.2 %; Mean Corpuscular HGB Conc 29.5 g/dL (30.0-36.0); Mean Corpuscular Hemoglobin 27.8 pg (28.0-34.0); Mean Corpuscular Volume 94.2 fL (81-99); Mean Platelet Volume 9.3 fL (7.4-10.4); Monocytes # 0.7 10^3/uL (0.2-0.9); Monocytes % 5.6 %; Neutrophils # 9.79 10^3/uL (1.8-7.7); Neutrophils % 83.1 %; Nucleated Red Blood Cells % 0 %; Platelet Count 297 10^3/cmm (130-400); Red Blood Count 4.14 10^6/uL (4.1-5.3); Red Cell Distribution Width 15.2 % (12.1-15.1); White Blood Count 11.8 10^3/uL (4.0-10.0)
--- NOTE | 2020-08-13 16:49 | PC.NURSE ---
Patient tolerated sitting up in chair today for 1hour, also tolerated ambulating to the bathroom X1 standby assist via walker.
[2020-08-13 16:54] LABS: Glucose Point of Care 222 mg/dL (70-110)
--- NOTE | 2020-08-13 18:50 | PC.NURSE ---
Report given to Usama, oncoming nurse, introduced self at bedside rounding, relinquished care of patient.
[2020-08-13 20:22] LABS: Glucose Point of Care 291 mg/dL (70-110)
[2020-08-13] MEDS: insulin glargine 100 units/1 mL 10 UNIT SUBCUT (20:43)
[2020-08-14] VITALS (9 sets, daily range): BP systolic 112–129; BP diastolic 72–82; PULSE 80–110; RESP 18–20; TEMP 36.6–37.1; O2SAT 88–100
[2020-08-14] MEDS: remdesivir 100 MG in sodium chloride 0.9% (100 ml) 100 ML IV (05:09)
[2020-08-14 05:19] LABS: Basophils % 0.1 %; Eosinophils # 0.3 10^3/uL (0.0-0.8); Eosinophils % 4.1 %; Hematocrit 34.1 % (37.0-47.0); Hemoglobin 10.4 g/dL (11.5-15.3); Lymphocytes % 14.6 %; Mean Corpuscular HGB Conc 30.5 g/dL (30.0-36.0); Mean Corpuscular Hemoglobin 27.4 pg (28.0-34.0); Mean Platelet Volume 9.6 fL (7.4-10.4); Monocytes # 0.6 10^3/uL (0.2-0.9); Monocytes % 7.9 %; Neutrophils # 5.05 10^3/uL (1.8-7.7); Neutrophils % 72.3 %; Nucleated Red Blood Cells % 0 %; Platelet Count 289 10^3/cmm (130-400); Red Blood Count 3.79 10^6/uL (4.1-5.3); Red Cell Distribution Width 15.1 % (12.1-15.1)
[2020-08-14 05:59] LABS: Alanine Aminotransferase < 5 U/L (0-33); Albumin Level 2.6 g/dL (3.5-5.2); Alkaline Phosphatase 82 IU/L (35-105); Anion Gap 13.6 (5-19); Aspartate Amino Transferase 9 U/L (0-32); Blood Urea Nitrogen 41 mg/dL (8-23); Calcium 8.4 mg/dL (8.5-10.5); Carbon Dioxide 27 mmol/L (22-29); Chloride 99 mmol/L (98-107); Globulin 3.9 g/dL (1.3-4.6); Glucose 106 mg/dL (65-115); Magnesium 1.9 mg/dL (1.7-2.3); Osmolality Calculated 291 mOsm/kg (285-295); Potassium 4.6 mmol/L (3.5-5.1); Sodium 135 mmol/L (136-145); Total Bilirubin 0.2 mg/dL (0.15-1.2); Total Protein 6.5 g/dL (6.6-8.7)
[2020-08-14 06:33] LABS: Glucose Point of Care 110 mg/dL (70-110)
[2020-08-14] MEDS: albuterol 8 gm MDI 2 PUFF INHALATION ×2 (09:10→20:50)
[2020-08-14] MEDS: pantoprazole DR 40 mg Tablet PO ×2 (09:24→17:42)
--- NOTE | 2020-08-14 10:10 | PC.SOCIAL ---
IMM Page 2 of IMM explained to patient. Initialed, dated, and timed and placed in chart. Copy provided to patient.
[2020-08-14 11:49] LABS: Glucose Point of Care 289 mg/dL (70-110)
--- NOTE | 2020-08-14 12:25 | PC.CHAP ---
Pastoral Care Encounter/Spiritual Assessment Type of Contact [] Declined sql server architect visit [] Patient/Family/Request visit [] Outpatient visit [] Follow-up visit [] Physician referral [] Code/Alert [] Routine visit [] Staff referral [] Actively dying [] Patient sleeping [] Family support [] [] Out of room [] Palliative care [] [] Receiving care in room [] Pre-surgical visit [] Trauma [] Long length of stay [] ICU visit [xx] Other: ISOLATION Relational/Emotional Strength [] Patient feels connected with others/family/visitors/staff [] Distress [] Loneliness/isolation [] Abandonment Spirituality of Patient [] Person of Ivanna [] Attends Roman Catholic of their Ivanna [] Believes in Prayer [] Reads Bible or Yazdanism materials [] There are Spiritual issues to be addressed Repair Table Operator Interventions [] Prayer [] Active listening [] Non-anxious presence [] Spiritual/emotional support [] Crisis/trauma care [] Spiritual counseling [] Bereavement support [] Provided bereavement packet [] Provided Bible/devotional materials [] Provided toy/stuffed animal, coloring book to patient or family member [] Provided Communion [] Anointing/[place] [] Salvation [] Completed spiritual assessment [] Other: Impact on Illness or Injury [] Angry [] Fearful [] Anxious [] Often cries [] Exhaustion [] Unable to work [] Unable to attend mosque [] Unable to walk/stand [] Unable to read [] Unable to drive [] Unable to eat/drink [] Unable to sleep [] Unable to be with family [] Patient intubated [] Other: Summary No visit due to isolation Time spent with patient
--- NOTE | 2020-08-14 13:28 | P.PN_ITS ---
Subjective Subjective: Interval history: Patient reports feeling better but does not feel strong enough to be dismissed home. She had several large bowel movements yesterday after initial with concern for melena and reports that it feels much better. Reports that all bowel movements after her initial showed no evidence of melena or hematochezia. Denies chest pain. Continues to have dry cough and generalized weakness. Vitals/I&O/Wt Last Vital Signs Temp 98.4 F 08/14/20 11:58 Pulse 80 08/14/20 11:58 Resp 18 08/14/20 11:58 BP 129/75 08/14/20 11:58 Pulse Ox 97 08/14/20 11:58 08/13/20 08/14/20 08/14/20 22:59 06:59 14:59 Intake Total 460 / 1140 1040 / 2180 340 / 340 Output Total 700 / 1450 1700 / 3150 Balance -240 / -310 -660 / -970 340 / 340 Weight last 48 hrs Weight 85.82 kg Weight 86.438 kg Physical Exam Const: COMMON NORMALS: no acute distress and patient oriented x3 Resp: COMMON NORMALS: normal respiratory effort OTHER: Minimal bibasilar Rales. Cardio: COMMON NORMALS: regular rate, regular rhythm and S2 normal heart sound present RATE: regular rate RHYTHM: regular rhythm HEART SOUNDS: S2 normal heart sound present OTHER: No lower extremity edema GI: COMMON NORMALS: Normal to inspection, nondistended, normoactive bowel sounds present, Soft to palpation and non-tender PALPATION: Yes Soft to palpation Neuro: COMMON NORMALS: patient oriented x3 and no focal motor deficits Urinary Catheter Management^: Low: Cath Placed During This Visit: yes Reason for Continuing Indwelling Catheter: Accurate Measurement of Urinary Output in Critically Ill Patients Urinary Catheter Date of Insertion: 08/09/20 Urinary Catheter Time of Insertion: 10:13 Data : 08/14/20 04:43 08/14/20 04:43 Micro: Microbiology 08/13/20 09:41 Occult Blood (FIT) - Final Stool - Stool Aspirate 08/10/20 21:00 Urine Culture - Final Urine Catheterized A&P Assessment and plan (1) Anemia: She responded well to PRBC transfusion. Anemia appears to have stabilized. No further vomiting. So far no bowel movement. Recheck blood count in the morning. Acute anemia. States that this is a somewhat recurrent issue. Says that she had seen a senior environmental technician in the past, although that was about 15 years ago. Subsequently says anemia with recurrent again, and was investigated by Dr. Ojeda with upper and lower endoscopy. PPI was changed to IV, however, we ran out off IV medication. Will change back to oral. Decadron, heparin were held due to recurrent anemia. Requested Hemoccult. Suspect gastritis or PUD. No BRBPR. No significant hematuria. No bleeding elsewhere. Iron deficiency anemia. She says recently had Hemoccult in office which was negative. 3 years ago had a colonoscopy and also one before that which were negative. Reports may have an EGD, but longer than that. Reports that was normal as well. Does not appear to be hemolyzing. Not low hapto. No splenomegaly. Does have chronic renal disease, and likely component of anemia of chronic disease. Reuqested peripheral smear. Normal B12, folic acid. Normal kappa lambda ratio, normal pattern immunofixation. Hold iron supplementation for now with acute infection, as discussed with her, resume after she recovers. Says iron supplementation was recently started by her primary care provider. Status: Acute (2) Pneumonia due to COVID-19 virus: Oxygenation is stable and now actually improving. At home she says uses oxygen mostly only at night, 4 L. Currently down to 2 L nasal cannula. Subjectively she continues to improve. Since she remained stable, anemia appears stabilized, will see if we can transfer her upstairs. Decadron stopped. At this time continue Radha Tidwell. PPI due to anemia. Imipenem, azithromycin for possible superimposed bacterial pneumonia. Obtain sputum culture. Bacterial antigens negative. DC heparin. SCD. Status: Acute (3) Respiratory failure with hypoxia: As above. Acute on chronic hypoxemic respiratory failure likely secondary to Covid pneumonia stabilized and gradually improving. Treatment limited by recurrent severe anemia. Status: Acute (4) COPD (chronic obstructive pulmonary disease): As above. Status: Acute (5) UTI (urinary tract infection): On Primaxin. Continue. Follow up repeat cultures. Unfortunately initial cultures unrevealing. Culture repeated 08/10. Had quite purulent appearing urine. Possible sepsis improved. Reported difficulties with placement of Low catheter, with noted retraction of urethra. Surrounding edema. She denies any history of fistulization with GI tract. Denies any gas or fecal matter in the urine. Complicated UTI with possible urinary retention as she felt much better after drainage of the bladder. Low catheter placed with some difficulty, with obtained 1000 mL. Should follow-up with urology subsequently. Has seen the urologist about 7 years ago. May benefit from topical estrogen. No noted urinary obstruction. Status: Acute (6) Acute kidney injury superimposed on CKD: With improvement. Cr 2.9 Post-renal by FENa. May be ATN with persistent Cr level despite relief of reten tion. ZACK on worsening CKD stage 3. Reports after pyelonephritis in her youth. No obstructive uropathy noted on CT. SPEP, UPEP, Unremarkable light chain ratio, normal immunofixation. Status: Acute Additional A&P Information Abnormal troponin: Suspected demand ischemia. Highly suspect acute upper GI bleed. Likely secondary to steroid induced gastritis/peptic ulcer disease or AVM bleed. DVT prophylaxis: SCD CODE STATUS: Full code Disposition: Home PLAN: Continue remdesivir. Will discontinue Primaxin since urine did not grow anything and patient had 5 days of therapy. Repeat labs in a.m. Continue physical therapy. Patient thinks that she will be stronger tomorrow and likely be able to go home. Attestations Medical Necessity Statement*: Patient with COVID-19 infection requires close inpatient monitoring and treatment. Coding Level of Care Code Acute District Plant Supervisor for [facility] Fwd Diagnoses Anemia D64.9 Pneumonia due to COVID-19 virus U07.1; J12.89 Respiratory failure with hypoxia J96.91 COPD (chronic obstructive pulmonary disease) J44.9 UTI (urinary tract infection) N39.0 Acute kidney injury superimposed on CKD N17.9; N18.9
[2020-08-14 16:47] LABS: Glucose Point of Care 178 mg/dL (70-110)
[2020-08-14] MEDS: polyethylene glycol 3350 Pkt 17 gm PO (17:43)
--- NOTE | 2020-08-14 18:43 | PC.NURSE ---
shift summary pt was up with stand by assist with use of walker, she had two BM's, no other changes this shift.
[2020-08-14 19:26] LABS: Glucose Point of Care 250 mg/dL (70-110)
[2020-08-14] MEDS: insulin glargine 100 units/1 mL 10 UNIT SUBCUT (20:50)
[2020-08-14] MEDS: guaiFENesin-dextromethorphan UDC 10 mL 5 ML PO (20:53)
[2020-08-14] MEDS: acetaminophen 325 mg Tablet 650 MG PO (20:53)
[2020-08-15] VITALS (11 sets, daily range): BP systolic 110–130; BP diastolic 71–75; PULSE 86–100; RESP 16–19; TEMP 36.4–37.3; O2SAT 94–97; BMI 33.5
[2020-08-15] MEDS: remdesivir 100 MG in sodium chloride 0.9% (100 ml) 100 ML IV (05:09)
[2020-08-15 06:03] LABS: Basophils % 0.2 %; Eosinophils # 0.4 10^3/uL (0.0-0.8); Eosinophils % 5.6 %; Hemoglobin 10.5 g/dL (11.5-15.3); Lymphocytes # 1.1 10^3/uL (0.8-4.8); Lymphocytes % 17.7 %; Mean Corpuscular HGB Conc 30.9 g/dL (30.0-36.0); Mean Corpuscular Hemoglobin 27.7 pg (28.0-34.0); Mean Corpuscular Volume 89.7 fL (81-99); Mean Platelet Volume 9.5 fL (7.4-10.4); Monocytes # 0.5 10^3/uL (0.2-0.9); Monocytes % 8.5 %; Neutrophils # 4.16 10^3/uL (1.8-7.7); Neutrophils % 67.2 %; Nucleated Red Blood Cells % 0 %; Platelet Count 316 10^3/cmm (130-400); Red Blood Count 3.79 10^6/uL (4.1-5.3); Red Cell Distribution Width 14.8 % (12.1-15.1); White Blood Count 6.2 10^3/uL (4.0-10.0)
[2020-08-15 06:24] LABS: Alanine Aminotransferase 6 U/L (0-33); Albumin Level 2.7 g/dL (3.5-5.2); Alkaline Phosphatase 83 IU/L (35-105); Anion Gap 15.3 (5-19); Aspartate Amino Transferase 9 U/L (0-32); Blood Urea Nitrogen 44 mg/dL (8-23); Calcium 8.7 mg/dL (8.5-10.5); Carbon Dioxide 28 mmol/L (22-29); Chloride 98 mmol/L (98-107); Globulin 4.1 g/dL (1.3-4.6); Glucose 94 mg/dL (65-115); Osmolality Calculated 295 mOsm/kg (285-295); Potassium 4.3 mmol/L (3.5-5.1); Sodium 137 mmol/L (136-145); Total Bilirubin 0.3 mg/dL (0.15-1.2); Total Protein 6.8 g/dL (6.6-8.7)
[2020-08-15 06:30] LABS: Glucose Point of Care 118 mg/dL (70-110)
[2020-08-15] MEDS: pantoprazole DR 40 mg Tablet PO ×2 (09:12→18:09)
[2020-08-15] MEDS: albuterol 8 gm MDI 2 PUFF INHALATION ×2 (09:27→20:20)
--- NOTE | 2020-08-15 09:53 | PC.NURSE ---
Patient sitting up high flowlers in bed, oxygen saturation 97% on 5L NC, decreased to 4L NC by this nurse, no respiratory distress noted, will continue to monitor oxygen saturation. discussed plan of care and verbalized understanding.
[2020-08-15 10:50] LABS: Glucose Point of Care 270 mg/dL (70-110)
--- NOTE | 2020-08-15 12:01 | PC.NURSE ---
Dr. Childers notified of red rash noted to abdominal fold requested nystatin powder awaiting order.
--- NOTE | 2020-08-15 12:43 | PM.PN ---
Subjective Subjective: Interval history: Patient continues to be weak but her breathing somewhat improved. She is saturating in mid 90s on 3 L by nasal cannula. Reports that her appetite and oral intake are improving. Today patient reports that 2 days prior to her admission she was having burning on urination as she usually has during her frequent UTIs. Reports that she for some reason did not tell anyone even when she was asked. I believe patient's symptoms improved while she was treated with Primaxin. Vitals/I&O/Wt Last Vital Signs Temp 98.5 F 08/15/20 08:00 Pulse 100 08/15/20 09:32 Resp 18 08/15/20 09:32 BP 114/71 08/15/20 08:00 Pulse Ox 96 08/15/20 09:32 08/14/20 08/15/20 08/15/20 22:59 06:59 14:59 Intake Total 650 / 1390 240 / 240 Output Total 1202 / 2102 300 / 2402 1700 / 1700 Balance -552 / -712 -300 / -1012 -1460 / -1460 Weight last 48 hrs Weight 85.82 kg Weight 85.82 kg Physical Exam Const: COMMON NORMALS: no acute distress and patient oriented x3 Resp: COMMON NORMALS: normal respiratory effort OTHER: Minimal bibasilar Rales. Cardio: COMMON NORMALS: regular rate, regular rhythm and S2 normal heart sound present RATE: regular rate RHYTHM: regular rhythm HEART SOUNDS: S2 normal heart sound present OTHER: No lower extremity edema GI: COMMON NORMALS: Normal to inspection, nondistended, normoactive bowel sounds present, Soft to palpation and non-tender PALPATION: Yes Soft to palpation Neuro: COMMON NORMALS: patient oriented x3 and no focal motor deficits Urinary Catheter Management^: Low: Cath Placed During This Visit: yes Reason for Continuing Indwelling Catheter: Accurate Measurement of Urinary Output in Critically Ill Patients Urinary Catheter Date of Insertion: 08/09/20 Urinary Catheter Time of Insertion: 10:13 Data : 08/15/20 05:00 08/15/20 05:00 A&P Assessment and plan (1) Anemia: She responded well to PRBC transfusion. Anemia appears to have stabilized. No further vomiting. So far no bowel movement. Recheck blood count in the morning. Acute anemia. States that this is a somewhat recurrent issue. Says that she had seen a aquatics instructor in the past, although that was about 15 years ago. Subsequently says anemia with recurrent again, and was investigated by Dr. Ojeda with upper and lower endoscopy. PPI was changed to IV, however, we ran out off IV medication. Will change back to oral. Decadron, heparin were held due to recurrent anemia. Requested Hemoccult. Suspect gastritis or PUD. No BRBPR. No significant hematuria. No bleeding elsewhere. Iron deficiency anemia. She says recently had Hemoccult in office which was negative. 3 years ago had a colonoscopy and also one before that which were negative. Reports may have an EGD, but longer than that. Reports that was normal as well. Does not appear to be hemolyzing. Not low hapto. No splenomegaly. Does have chronic renal disease, and likely component of anemia of chronic disease. Reuqested peripheral smear. Normal B12, folic acid. Normal kappa lambda ratio, normal pattern immunofixation. Hold iron supplementation for now with acute infection, as discussed with her, resume after she recovers. Says iron supplementation was recently started by her primary care provider. Status: Acute (2) Pneumonia due to COVID-19 virus: Oxygenation is stable and now actually improving. At home she says uses oxygen mostly only at night, 4 L. Currently down to 2 L nasal cannula. Subjectively she continues to improve. Since she remained stable, anemia appears stabilized, will see if we can transfer her upstairs. Decadron stopped. At this time continue Diann, Radha Strickland. PPI due to anemia. Imipenem, azithromycin for possible superimposed bacterial pneumonia. Obtain sputum culture. Bacterial antigens negative. DC heparin. SCD. Status: Acute (3) Respiratory failure with hypoxia: As above. Acute on chronic hypoxemic respiratory failure likely secondary to Covid pneumonia stabilized and gradually improving. Treatment limited by recurrent severe anemia. Status: Acute (4) COPD (chronic obstructive pulmonary disease): As above. Status: Acute (5) UTI (urinary tract infection): On Primaxin. Continue. Follow up repeat cultures. Unfortunately initial cultures unrevealing. Culture repeated 08/10. Had quite purulent appearing urine. Possible sepsis improved. Reported difficulties with placement of Low catheter, with noted retraction of urethra. Surrounding edema. She denies any history of fistulization with GI tract. Denies any gas or fecal matter in the urine. Complicated UTI with possible urinary retention as she felt much better after drainage of the bladder. Low catheter placed with some difficulty, with obtained 1000 mL. Should follow-up with urology subsequently. Has seen the urologist about 7 years ago. May benefit from topical estrogen. No noted urinary obstruction. Status: Acute (6) Acute kidney injury superimposed on CKD: With improvement. Cr 2.9 Post-renal by FENa. May be ATN with persistent Cr level despite relief of retention. ZACK on worsening CKD stage 3. Reports after pyelonephritis in her youth. No obstructive uropathy noted on CT. SPEP, UPEP, Unremarkable light chain ratio, normal immunofixation. Status: Acute Additional A&P Information Abnormal troponin: Suspected demand ischemia. Highly suspect acute upper GI bleed. Likely secondary to steroid induced gastritis/peptic ulcer disease or AVM bleed. DVT prophylaxis: SCD CODE STATUS: Full code Disposition: Home PLAN: Continue remdesivir and since patient continues to be generally weak I will give patient 2 more days of Primaxin despite cultures not showing anything. Continue with physical therapy. Attestations Medical Necessity Statement*: Patient with COVID-19 infection requiring oxygen and being generally weak requires close inpatient monitoring and treatment until deemed safe for discharge. 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 Fwd Diagnoses Anemia D64.9 Pneumonia due to COVID-19 virus U07.1; J12.89 Respiratory failure with hypoxia J96.91 COPD (chronic obstructive pulmonary disease) J44.9 UTI (urinary tract infection) N39.0 Acute kidney injury superimposed on CKD N17.9; N18.9
[2020-08-15 16:48] LABS: Glucose Point of Care 188 mg/dL (70-110)
[2020-08-15 20:31] LABS: Glucose Point of Care 305 mg/dL (70-110)
[2020-08-15] MEDS: guaiFENesin-dextromethorphan UDC 10 mL 5 ML PO (21:54)
[2020-08-15] MEDS: insulin glargine 100 units/1 mL 10 UNIT SUBCUT (21:55)
[2020-08-16] VITALS (10 sets, daily range): BP systolic 114–145; BP diastolic 66–84; PULSE 80–102; RESP 15–18; TEMP 36.4–37.2; O2SAT 94–98
[2020-08-16] MEDS: remdesivir 100 MG in sodium chloride 0.9% (100 ml) 100 ML IV (05:42)
[2020-08-16 05:48] LABS: Basophils % 0.5 %; Eosinophils # 0.3 10^3/uL (0.0-0.8); Eosinophils % 3.4 %; Hematocrit 35.2 % (37.0-47.0); Hemoglobin 10.5 g/dL (11.5-15.3); Lymphocytes % 14.2 %; Mean Corpuscular HGB Conc 29.8 g/dL (30.0-36.0); Mean Corpuscular Hemoglobin 27.6 pg (28.0-34.0); Mean Corpuscular Volume 92.4 fL (81-99); Mean Platelet Volume 9.5 fL (7.4-10.4); Monocytes # 0.7 10^3/uL (0.2-0.9); Monocytes % 9.2 %; Neutrophils # 5.28 10^3/uL (1.8-7.7); Neutrophils % 72.2 %; Nucleated Red Blood Cells % 0 %; Platelet Count 283 10^3/cmm (130-400); Red Blood Count 3.81 10^6/uL (4.1-5.3); Red Cell Distribution Width 14.8 % (12.1-15.1); White Blood Count 7.3 10^3/uL (4.0-10.0)
[2020-08-16 06:11] LABS: Alanine Aminotransferase < 5 U/L (0-33); Albumin Level 2.4 g/dL (3.5-5.2); Alkaline Phosphatase 81 IU/L (35-105); Blood Urea Nitrogen 44 mg/dL (8-23); Calcium 8.3 mg/dL (8.5-10.5); Carbon Dioxide 25 mmol/L (22-29); Chloride 98 mmol/L (98-107); Globulin 4.3 g/dL (1.3-4.6); Glucose 109 mg/dL (65-115); Magnesium 1.8 mg/dL (1.7-2.3); Osmolality Calculated 290 mOsm/kg (285-295); Sodium 134 mmol/L (136-145); Total Bilirubin 0.3 mg/dL (0.15-1.2); Total Protein 6.7 g/dL (6.6-8.7)
[2020-08-16 06:12] LABS: Anion Gap 15.1 (5-19); Aspartate Amino Transferase 13 U/L (0-32); Potassium 4.1 mmol/L (3.5-5.1)
[2020-08-16 07:27] LABS: Glucose Point of Care 123 mg/dL (70-110)
[2020-08-16] MEDS: pantoprazole DR 40 mg Tablet PO ×2 (07:57→17:21)
[2020-08-16] MEDS: albuterol 8 gm MDI 2 PUFF INHALATION (08:10)
[2020-08-16 10:54] LABS: Glucose Point of Care 256 mg/dL (70-110)
--- NOTE | 2020-08-16 11:11 | PM.PN ---
Subjective Subjective: Interval history: Patient continues to be weak but otherwise denied any significant complaints. Her oxygen saturation further improves and she requires 2 L to saturate in the mid 90s. Kidney function stable. Vitals/I&O/Wt Last Vital Signs Temp 97.9 F 08/16/20 08:00 Pulse 97 08/16/20 08:10 Resp 17 08/16/20 08:10 BP 123/73 08/16/20 08:00 Pulse Ox 96 08/16/20 08:10 08/15/20 08/16/20 08/16/20 22:59 06:59 14:59 Intake Total 340 / 920 580 / 580 Output Total 1500 / 3200 1700 / 4900 Balance -1160 / -2280 -1700 / -3980 580 / 580 Weight last 48 hrs Weight 86.721 kg Weight 105.772 kg Weight 85.82 kg Physical Exam Const: COMMON NORMALS: no acute distress and patient oriented x3 Resp: COMMON NORMALS: normal respiratory effort OTHER: Minimal bibasilar Rales. Cardio: COMMON NORMALS: regular rate, regular rhythm and S2 normal heart sound present RATE: regular rate RHYTHM: regular rhythm HEART SOUNDS: S2 normal heart sound present OTHER: No lower extremity edema GI: COMMON NORMALS: Normal to inspection, nondistended, normoactive bowel sounds present, Soft to palpation and non-tender PALPATION: Yes Soft to palpation Neuro: COMMON NORMALS: patient oriented x3 and no focal motor deficits Urinary Catheter Management^: Low: Cath Placed During This Visit: yes Reason for Continuing Indwelling Catheter: Other Urinary Catheter Date of Insertion: 08/09/20 Urinary Catheter Time of Insertion: 10:13 Data : 08/16/20 05:35 08/16/20 05:35 A&P Assessment and plan (1) Anemia: She responded well to PRBC transfusion. Anemia appears to have stabilized. No further vomiting. So far no bowel movement. Recheck blood count in the morning. Acute anemia. States that this is a somewhat recurrent issue. Says that she had seen a wrapper stemmer operator in the past, although that was about 15 years ago. Subsequently says anemia with recurrent again, and was investigated by Dr. Ojeda with upper and lower endoscopy. PPI was changed to IV, however, we ran out off IV medication. Will change back to oral. Decadron, heparin were held due to recurrent anemia. Requested Hemoccult. Suspect gastritis or PUD. No BRBPR. No significant hematuria. No bleeding elsewhere. Iron deficiency anemia. She says recently had Hemoccult in office which was negative. 3 years ago had a colonoscopy and also one before that which were negative. Reports may have an EGD, but longer than that. Reports that was normal as well. Does not appear to be hemolyzing. Not low hapto. No splenomegaly. Does have chronic renal disease, and likely component of anemia of chronic disease. Reuqested peripheral smear. Normal B12, folic acid. Normal kappa lambda ratio, normal pattern immunofixation. Hold iron supplementation for now with acute infection, as discussed with her, resume after she recovers. Says iron supplementation was recently started by her primary care provider. Status: Acute (2) Pneumonia due to COVID-19 virus: Oxygenation is stable and now actually improving. At home she says uses oxygen mostly only at night, 4 L. Currently down to 2 L nasal cannula. Subjectively she continues to improve. Since she remained stable, anemia appears stabilized, will see if we can transfer her upstairs. Decadron stopped. At this time continue Radha Tidwell. PPI due to anemia. Imipenem, azithromycin for possible superimposed bacterial pneumonia. Obtain sputum culture. Bacterial antigens negative. DC heparin. SCD. Status: Acute (3) Respiratory failure with hypoxia: As above. Acute on chronic hypoxemic respiratory failure likely secondary to Covid pneumonia stabilized and gradually improving. Treatment limited by recurrent severe anemia. Status: Acute (4) COPD (chronic obstructive pulmonary disease): As above. Status: Acute (5) UTI (urinary tract infection): On Primaxin. Continue. Follow up repeat cultures. Unfortunately initial cultures unrevealing. Culture repeated 08/10. Had quite purulent appearing urine. Possible sepsis improved. Reported difficulties with placement of Low catheter, with noted retraction of urethra. Surrounding edema. She denies any history of fistulization with GI tract. Denies any gas or fecal matter in the urine. Complicated UTI with possible urinary retention as she felt much better after drainage of the bladder. Low catheter placed with some difficulty, with obtained 1000 mL. Should follow-up with urology subsequently. Has seen the urologist about 7 years ago. May benefit from topical estrogen. No noted urinary obstruction. Status: Acute (6) Acute kidney injury superimposed on CKD: With improvement. Cr 2.9 Post-renal by FENa. May be ATN with persistent Cr level despite relief of retention. ZACK on worsening CKD stage 3. Reports after pyelonephritis in her youth. No obstructive uropathy noted on CT. SPEP, UPEP, Unremarkable light chain ratio, normal immunofixation. Status: Acute Additional A&P Information Abnormal troponin: Suspected demand ischemia. Highly suspect acute upper GI bleed. Likely secondary to steroid induced gastritis/peptic ulcer disease or AVM bleed. DVT prophylaxis: SCD CODE STATUS: Full code Disposition: Home PLAN: Continue current monitoring and treatment. Repeat chest x-ray in a.m. Continue physical therapy. If patient continues to be generally weak we will initiate placement to nursing facility tomorrow. Attestations Medical Necessity Statement*: Patient with COVID-19 infection as well as UTI requires close inpatient monitoring and treatment as she remains symptomatic and generally weak and does not feel strong enough to be dismissed home. Coding Level of Care Code Acute Human Resources Team Member for [facility] Fwd Diagnoses Anemia D64.9 Pneumonia due to COVID-19 virus U07.1; J12.89 Respiratory failure with hypoxia J96.91 COPD (chronic obstructive pulmonary disease) J44.9 UTI (urinary tract infection) N39.0 Acute kidney injury superimposed on CKD N17.9; N18.9
[2020-08-16] MEDS: guaiFENesin-dextromethorphan UDC 10 mL 5 ML PO (13:19)
[2020-08-16] MEDS: benzonatate 100 mg Capsule PO (13:19)
--- NOTE | 2020-08-16 13:24 | PC.NURSE ---
patient coughing intermittently, PRN robitussin and tessalon pearls given, see MAR for further details. Patient remains sitting up in chair, denies pain or further needs. Call light in reach.
--- NOTE | 2020-08-16 14:21 | PC.NURSE ---
Patient returned to bed after sitting up in chair, tolerated chair well, barrier ointment applied to excoriated skin on sacrum, patient denies pain or shortness of breath while resting, call light in reach, side rails up X2.
--- NOTE | 2020-08-16 14:41 | DCPLANNER ---
Pg 2 of IM updated and since pt doesn't answer her phone yet, phoned Friend; Tg Cruz - [phone]. She is glad to know this information.
[2020-08-16 17:18] LABS: Glucose Point of Care 180 mg/dL (70-110)
[2020-08-16] MEDS: polyethylene glycol 3350 Pkt 17 gm PO (17:22)
[2020-08-16 20:29] LABS: Glucose Point of Care 325 mg/dL (70-110)
[2020-08-16] MEDS: insulin glargine 100 units/1 mL 10 UNIT SUBCUT (20:55)
[2020-08-17 04:00] VITALS: BP 115/68; PULSE 100; RESP 17; TEMP 36.2; O2SAT 94
--- NOTE | 2020-08-17 06:00 | XR_ITS ---
WS: [id number] XR chest 1V portable [id number] REASON FOR EXAM: Pneumonia FINDINGS: There are interstitial infiltrative changes in both lower lungs. This is most prominent on the left s mirna. There is blunting of the left costophrenic angle which suggests left pleural effusion. There is increased opacity in the left lower lateral lung field. The right lung is relatively unchanged. XR/XR chest 1V portable [id number] IMPRESSION: Findings compatible with bibasilar pneumonitis, stable on the right, possibly p rogressive on the left possible left pleural effusion.
[2020-08-17 06:38] LABS: Glucose Point of Care 125 mg/dL (70-110)
[2020-08-17 07:48] VITALS: BP 131/77; PULSE 89; RESP 18; TEMP 36.7; O2SAT 94
[2020-08-17 08:36] VITALS: PULSE 89; RESP 16; O2SAT 94
[2020-08-17] MEDS: albuterol 8 gm MDI 2 PUFF INHALATION (08:36)
[2020-08-17] MEDS: pantoprazole DR 40 mg Tablet PO (09:12)
[2020-08-17] MEDS: polyethylene glycol 3350 Pkt 17 gm PO (09:12)
[2020-08-17 11:02] LABS: Glucose Point of Care 263 mg/dL (70-110)
[2020-08-17 11:26] VITALS: BP 115/75; PULSE 83; RESP 18; TEMP 37.1; O2SAT 95
--- NOTE | 2020-08-17 12:37 | P.DS_ITS ---
Discharge Providers Date of Admission: 08/09/20 02:13 Date of Discharge: August 17, 2020 Attending Provider at Admission: Brian Mcdonough MD Attending Provider at Discharge: Freedom Childers MD Diagnoses at Discharge Discharge Diagnosis (1) Anemia: Status: Acute (2) Pneumonia due to COVID-19 virus: Status: Acute (3) Respiratory failure with hypoxia: Status: Acute (4) COPD (chronic obstructive pulmonary disease): Status: Acute (5) UTI (urinary tract infection): Status: Acute (6) Acute kidney injury superimposed on CKD: Status: Acute (7) Urinary retention: Status: Acute Permanent problem details: Present on admission (8) Upper GI bleed: Status: Acute Permanent problem details: Present on admission Reason for Visit Reason for Visit: LOWER BACK PAIN Hospital Course Hospital Course Patient with underlying COPD with chronic use of 4 L of oxygen at home presented with worsening shortness of breath, back pain and UTI symptoms. Patient was noted to be severely anemic and had evidence of GI bleed. Patient was treated with Primaxin as well as blood transfusions and she gradually improved and this morning reports feeling better and strong enough to be dismissed home. She does not want to consider long term facility and does not want to have home health. Reports that her friend who has nursing background will be taking care of her. Her oxygen requirement much improved and she is saturating in the mid 90s on 2 L. Her hemoglobin remained stable and she had no more melanotic stools. I will continue high-dose PPI and patient was told to discuss with primary care physician to have DEVELOPER RELATIONS MANAGER examination as well as to consider EGD/colonoscopy. I will make an appointment for patient to see supervisor cleaning and annealing for chronic kidney disease. We will also make appointment to see Dr. Zamorano for urinary retention. Patient had 1 L of urine immediately out once Low catheter was placed. Patient to keep Low catheter in. She will need to see Dr. Banegas's office in couple of weeks to have catheter renewed. Outpatient follow-up with Dr. Oscar also be made for chronic lung disease. This morning patient denies being short of breath or having chest pain. Reports that her appetite and oral intake improved. She had normal formed bowel movement and overall feels much better. I will request repeat labs in several days to make sure her numbers remain in good range with results sent to primary care physician. Physical Exam Const: COMMON NORMALS: no acute distress and patient oriented x3 Resp: COMMON NORMALS: normal respiratory effort and clear to auscultation bilaterally AUSCULTATION: clear to auscultation bilaterally Cardio: COMMON NORMALS: regular rate, regular rhythm and S2 normal heart sound present RATE: regular rate RHYTHM: regular rhythm HEART SOUNDS: S2 normal heart sound present OTHER: No lower extremity edema GI: COMMON NORMALS: Normal to inspection, nondistended, normoactive bowel sounds present, Soft to palpation and non-tender PALPATION: Yes Soft to palpation Neuro: COMMON NORMALS: patient oriented x3 and no focal motor deficits Urinary Catheter Management^: Low: Cath Placed During This Visit: yes Reason for Continuing Indwelling Catheter: Acute Urinary Retention or Obstruction Urinary Catheter Date of Insertion: 08/09/20 Urinary Catheter Time of Insertion: 10:13 Discharge Data Data Completed and Pending: Completed Studies During Hospitalization Category Date Time Status CT abdomen pelvis wo con [id number] Urge nt Cat Scan 08/09/20 00:[address] chest wo con 7 1250 Urgent Cat Scan 08/09/20 03:12 Completed XR chest 1V [id number] Stat Exams 08/08/20 21:27 Completed XR chest 1V lorena ble [id number] Routine Exams 08/17/20 06:00 Completed Pending at discharge Category Date Time Status Sputum Culture an d Gram Stain Routi ne Lab 08/10/20 18:05 Uncollected Labs from last 24 hours 08/17/20 08/17/20 08/16/20 10:57 06:31 20:21 POC Glucose 263 125 325 08/16/20 17:04 POC Glucose 180 Vitals: Last Vital Signs Temp 98.7 F 08/17/20 11:26 Pulse 83 08/17/20 11:26 Resp 18 08/17/20 11:26 BP 115/75 08/17/20 11:26 Pulse Ox 95 08/17/20 11:26 Discharge Plan Discharge Patient Disposition: Home Condition: Stable Prescriptions: New bisacodyl 10 mg Suppository 10 mg AL DAILY PRN (Reason: Constipation) Qty: 30 RF: 0 polyethylene glycol 3350 17 gram Powder In Packet 17 g PO BID PRN (Reason: Constipation) Qty: 60 RF: 0 pantoprazole 40 mg Tablet,Delayed Release (Dr/Ec) 40 mg PO BID Qty: 60 RF: 0 Ventolin HFA 90 mcg/actuation Hfa Aerosol Inhaler 2 puff inhalation Q4H.RESPIRATORY PRN (Reason: Shortness Of Breath) Qty: 18 RF: 0 Continued montelukast [Singulair] 10 mg Tablet 10 mg PO DAILY@0800 RF: 0 vitamin E 1 tab PO DAILY@0800 RF: 0 Tresiba FlexTouch U-200 200 unit/mL (3 mL) insulin pen See Rx Instructions .ROUTE .COMPLEX RF: 0 Dulera See Rx Instructions .ROUTE .COMPLEX RF: 0 Changed ferrous sulfate 325 mg (65 mg iron) tablet 325 mg PO EVERY OTHER DAY Qty: 0 RF: 0 Discharge Orders: Discharge Order (Routine); Ordered 08/17/20 Ordered By: Freedom Childers Other Ambulatory Orders: Complete Blood Count w/Auto (Routine) Timeframe: 20200820 Location: Determined by Patient Ordered By: Freedom Childers Comprehensive Metabolic Panel (Routine) Timeframe: 3 Days Facility: [facility] - Location: Lab - Main Lab Ordered By: Freedom Childers Referrals: Marshall Oscar MD [Physician] - 1 week Alexander Mcrae MD [Referring] - 1 week Chapo Zamorano MD [Physician] - 4-7 days Jeff Banegas DO [Physician] - 08/24/20 10:30 am Discharge Diet: Usual diet Discharge Activity: Increase activity as tolerated Activity Restrictions/Additional Instructions: Please call your doctor or present to emergency department if your condition worsens or you develop diarrhea, lightheadedness, fatigue or see blood in your stool or black stool. Please discuss with Dr. Banegas to further evaluate your anemia with DEVELOPER RELATIONS MANAGER examination if not done before. Please avoid any NSAIDs like ibuprofen, Advil, naproxen, etc and continue Protonix twice daily for at least 1 month and if hemoglobin is stable discussed with your doctor to switch it to once daily.. Please discuss with Dr. Banegas or Dr. Ojeda to consider repeat EGD/colonoscopy for further evaluation of anemia. Please keep Low catheter in until you see Dr. Zamorano and remember that it will need to be changed every 30 days as we have discussed. Since you do not want to have home health please make sure you see Dr. Banegas in approximately 2 weeks for Low catheter exchange. It will need to be changed every 30 days. Discharge Attestations Time Spent in Discharge Care*: greater than 30 min Quality Metrics Clinical Quality Measures During this hospital stay, did patient experience: None Coding Level of Care Code Acute Store Clerk Cashier for [facility] Fwd Diagnoses Anemia D64.9 Pneumonia due to COVID-19 virus U07.1; J12.89 Respiratory failure with hypoxia J96.91 COPD (chronic obstructive pulmonary disease) J44.9 UTI (urinary tract infection) N39.0 Acute kidney injury superimposed on CKD N17.9; N18.9 Urinary retention R33.9 Upper GI bleed K92.2
[2020-08-17 17:08] VITALS: BP 115/75; PULSE 83; RESP 18; TEMP 37.1; O2SAT 95
== END 2020-08-17 16:00 | disposition home or self-care (01) | DRG 177 ==
LOC: ER 08-09 03:15 → ICU 08-09 03:16 → MEDSURG 08-13 01:22
PROVIDERS: Internal Medicine; Admitting Provider Internal Medicine; Emergency Provider Emergency Medicine; Visit Provider Internal Medicine
DX: U07.1 COVID-19 (principal); J12.89 Other viral pneumonia; J15.9 Unspecified bacterial pneumonia; J96.21 Acute and chronic respiratory failure with hypoxia; N39.0 Urinary tract infection, site not specified; N17.9 Acute kidney failure, unspecified; I24.8 Other forms of acute ischemic heart disease; K92.2 Gastrointestinal hemorrhage, unspecified; J44.9 Chronic obstructive pulmonary disease, unspecified; Z99.81 Dependence on supplemental oxygen; M54.5 Low back pain; K80.80 Other cholelithiasis without obstruction; K42.9 Umbilical hernia without obstruction or gangrene; D50.9 Iron deficiency anemia, unspecified; N18.30 Chronic kidney disease, stage 3 unspecified; R33.9 Retention of urine, unspecified; D63.1 Anemia in chronic kidney disease; Z87.440 Personal history of urinary (tract) infections
CPT/HCPCS: 12345; 36415; 36416; 36430; 36600; 51702; 71045; 71250; 74176; 80053; 80500; 81001; 82274; 82575; 82607; 82728; 82746; 82803; 82962; 83010; 83520; 83540; 83550; 83605; 83615; 83735; 83880; 83883; 84145; 84155; 84156; 84165; 84260; 84300; 84443; 84484; 85018; 85025; 85378; 85610; 85651; 85730; 86140; 86335; 86403; 86850; 86900; 86920; 87086; 87426; 87449; 93005; 94640; 96372; 96375; 99284; C9113; J0456; J0743; J1100; J1644; J1815 ×2; J1940; J1956; J2270; J2405; J2765; J2920; J3535; J7030; J7050; P9016

== ENCOUNTER 2020-09-09 12:02 | Emergency (ER) | payer MEDICARE, SELFPAY ==
[2020-09-09 12:03] VITALS: BP 109/65; PULSE 93; RESP 18; TEMP 36.4; O2SAT 98; BMI 28.5
--- NOTE | 2020-09-09 12:30 | XR_ITS ---
WS: [id number] Right arm and humerus, 2 views, AP and lateral views, 09/09/2020 Clinical Data: Pain, fall Comparison: None. Findings: There is an oblique midshaft fracture of the right humerus. The shoulder appears to be normal. The so ft tissues are unremarkable. XR/[place] [id number] Impression: Oblique mid shaft fracture of right humerus.
--- NOTE | 2020-09-09 12:30 | W.ED.FALL ---
HPI - Fall General: Chief Complaint: Fall Stated Complaint: FALL, ARM PAIN WITH DEFORMITY Time Seen by Provider: 09/09/20 12:03 History of Present Illness: HPI Narrative: 75-year-old female into the emergency department with complaints of right upper arm pain after a fall. Patient reports just prior to arrival she tripped over her own feet fell on her right side mainly striking the right arm. She denies striking her head or getting knocked out. She denies any pain at the elbow or wrist on that same side. She is not having a lot of pain at the shoulder. The patient denies any other symptoms. She does not have any abrasions or breaks in the skin. complaint: fall Onset (ago): minute(s) Fall from: standing Fall witnessed: no Place fall occurred: home Loss of consciousness: None Prolonged down time: no Symptoms prior to fall: none Context: tripped/slipped Location of injury - extremities: Right: arm Severity: moderate Associated symptoms-after fall: Reports no associated symptoms Review of Systems General: Reports: 10 or more systems reviewed and unremarkable except in HPI and below Musc: Reports: extremity pain, extremity swelling and limited range of motion; Denies: joint swelling Neuro: Denies: numbness in extremities or sensory changes PFSH ED PFSH: Medical History (Updated 09/09/20 @ 13:52 by Crispin Reinoso DO) History of recurrent UTI (urinary tract infection) Surgical History (Updated 08/27/20 @ 14:30 by Chapo Zamorano MD) H/O tubal ligation History of tonsillectomy and adenoidectomy Family History Mother , AT AGE 91 Stroke Father , AT 99 No problems noted. Social History Smoking and tobacco status: never smoked Alcohol intake: never Marital status: / Current occupational status: retired History of recent travel: No Physical Exam Const: COMMON NORMALS: no acute distress, patient oriented x3, no limitations and alert HENMT: COMMON NORMALS: normocephalic HEAD & SCALP: normal to inspection and normocephalic Neck/C-Spine: COMMON NORMALS: no JVD Resp: COMMON NORMALS: normal respiratory effort EFFORT & INSPECTION: Yes able to speak in complete sentences Cardio: COMMON NORMALS: no JVD, regular rate and regular rhythm RATE: regular rate RHYTHM: regular rhythm Extremity: GENERAL: Yes normal exam except as noted RIGHT UPPER EXTREMITY: Yes upper arm EXTREMITY IMAGE (FRONT): 1. Neuro: COMMON NORMALS: patient oriented x3, no focal motor deficits and no sensory deficits noted SENSORIUM/ORIENTATION: Yes alert Skin: COMMON NORMALS: no rashes or lesions noted, no wounds and no petechiae GENERAL SKIN EXAM: no rashes or lesions noted TRAUMA: other (Mild swelling and tenderness to palpation over right mid shaft humerus) Course Vital Signs: Vital signs: Vital Signs Temperature 97.5 F L 09/09/20 12:03 Pulse Rate 93 09/09/20 12:03 Respiratory Rate 18 09/09/20 12:03 Blood Pressure 109/65 09/09/20 12:03 Pulse Oximetry 98 09/09/20 12:03 MDM - Fall MDM Narrative: Medical decision making narrative: 75-year-old female with ground-level fall. Patient's complaining only of mid upper arm pain I suspect humeral fracture. Recommend x-ray of the right humerus. Patient declines any pain medication at this point. Patient was found to have a slightly displaced mid humerus fracture. She was neurovascularly intact. She will be placed in a sling and have orthopedics follow-up. Return precautions discussed. Discharge Plan Discharge Patient Disposition: Home Clinical Impression: Fracture, humerus closed Qualifiers: Encounter type: initial encounter Humerus Location: shaft Fracture morphology: unspecified fracture morphology Laterality: right Qualified Code(s): S42.301A - Unspecified fracture of shaft of humerus, right arm, initial encounter for closed fracture Condition: Stable Prescriptions: [place] 5-325 mg tablet 1 tab PO Q6H PRN (Reason: pain) Qty: 10 RF: 0 No Action Advair HFA 45-21 mcg/actuation HFA aerosol inhaler 2 puff inhalation BID RF: 0 sulfamethoxazole-trimethoprim 800-160 mg tablet 1 tab PO BID Qty: 42 RF: 1 tamsulosin 0.4 mg capsule 0.4 mg PO .at bedtime Qty: 30 RF: 3 montelukast [Singulair] 10 mg Tablet 10 mg PO DAILY@0800 RF: 0 Tresiba FlexTouch U-200 200 unit/mL (3 mL) insulin pen See Rx Instructions .ROUTE .COMPLEX RF: 0 Dulera See Rx Instructions .ROUTE .COMPLEX RF: 0 polyethylene glycol 3350 17 gram Powder In Packet 17 g PO BID PRN (Reason: Constipation) Qty: 60 RF: 0 pantoprazole 40 mg Tablet,Delayed Release (Dr/Ec) 40 mg PO BID Qty: 60 RF: 0 ferrous sulfate 325 mg (65 mg iron) tablet 325 mg PO EVERY OTHER DAY Qty: 0 RF: 0 Discharge Orders: Discharge ED (Routine); Ordered 09/09/20 Ordered By: Crispni Reinoso Referrals: Jeff Banegas DO [Primary Care Provider] - Discharge Diet: Advance as tolerated Discharge Activity: Resume usual activity Patient Instructions: Fractures - Humerus Activity Restrictions/Additional Instructions: 1. Rest, ice and wear sling and take Rx as directed. 2. Arrange orthopedic follow up in 2-3 days. 3. Return for uncontrolled pain or new / worsening symptoms. Coding Level of Care Code ED Executive Recruiter for Macarena Fwd Exam Detailed
[2020-09-09 14:28] VITALS: RESP 18
[2020-09-09] MEDS: fentaNYL 50 mcg/mL INJ 2mL 100 MCG IVP (14:28)
[2020-09-09] MEDS: ondansetron 2 mg/ML SDV 2 mL 4 MG IVP (14:33)
[2020-09-09 14:35] VITALS: BP 120/92; PULSE 88; RESP 18; O2SAT 95
--- NOTE | 2020-09-10 12:09 | DCPLANNER ---
manager community had message to schedule a follow up appointment for patient with ortho. manager community called the ortho clinic, spoke with Fang, gave clinic patients information. manager community was told that patients information would be printed and reviewed. Clinic will call patient with appointment information.
--- NOTE | 2020-09-15 08:10 | DCPLANNER ---
Patient had a follow up appointment on 09.14.20 at ortho - patient did attend the appointment.
== END 2020-09-09 15:16 | disposition home or self-care (01) ==
PROVIDERS: Emergency Provider Family Medicine; PCP Internal Medicine
DX: S42.301A Unspecified fracture of shaft of humerus, right arm, initial encounter for closed fracture (principal); Z79.4 Long term (current) use of insulin; W01.0XXA Fall on same level from slipping, tripping and stumbling without subsequent striking against object, initial encounter
CPT/HCPCS: 12345; 73060; 96374; 96375; 99281; 99282; 99283; J2405; J3010

== ENCOUNTER → 2020-09-14 08:43 | Outpatient (BNVA) | payer MEDICARE, SELFPAY | PROVIDERS: PCP Internal Medicine; Visit Provider Specialist | DX: S42.301A Unspecified fracture of shaft of humerus, right arm, initial encounter for closed fracture (principal); X58.XXXA Exposure to other specified factors, initial encounter; Z46.89 Encounter for fitting and adjustment of other specified devices; S42.391D Other fracture of shaft of right humerus, subsequent encounter for fracture with routine healing; X58.XXXD Exposure to other specified factors, subsequent encounter | CPT/HCPCS: 73060; 97760; L3980 ==

== ENCOUNTER 2020-09-14 14:38 | Outpatient (CLI) | payer MEDICARE, SELFPAY | END 2020-09-14 14:39 | disposition home or self-care (01) | LOC: SPT 14:38 | PROVIDERS: PCP Internal Medicine; Visit Provider Specialist | DX: Z46.89 Encounter for fitting and adjustment of other specified devices (principal); S42.391D Other fracture of shaft of right humerus, subsequent encounter for fracture with routine healing; X58.XXXD Exposure to other specified factors, subsequent encounter | CPT/HCPCS: 97760; L3980 ==

== ENCOUNTER → 2020-09-15 11:01 | Outpatient (BNVA) | payer MEDICARE, SELFPAY | PROVIDERS: PCP Internal Medicine; Visit Provider Specialist | DX: Z47.89 Encounter for other orthopedic aftercare (principal); S42.301D Unspecified fracture of shaft of humerus, right arm, subsequent encounter for fracture with routine healing; W01.0XXD Fall on same level from slipping, tripping and stumbling without subsequent striking against object, subsequent encounter; M25.511 Pain in right shoulder | CPT/HCPCS: 73060 ==

== ENCOUNTER → 2020-09-28 13:07 | Outpatient (BNVA) | payer MEDICARE, SELFPAY | PROVIDERS: PCP Internal Medicine; Visit Provider Specialist | DX: S42.331A Displaced oblique fracture of shaft of humerus, right arm, initial encounter for closed fracture (principal); X58.XXXA Exposure to other specified factors, initial encounter | CPT/HCPCS: 73060 ==

== ENCOUNTER → 2020-10-12 13:56 | Outpatient (BNVA) | payer MEDICARE, SELFPAY | PROVIDERS: PCP Internal Medicine; Visit Provider Specialist | DX: S42.331A Displaced oblique fracture of shaft of humerus, right arm, initial encounter for closed fracture (principal); X58.XXXA Exposure to other specified factors, initial encounter | CPT/HCPCS: 73060 ==

== ENCOUNTER → 2020-10-22 12:00 | Outpatient (BNVA) | payer MEDICARE, SELFPAY | PROVIDERS: PCP Internal Medicine; Visit Provider Specialist | DX: Z01.818 Encounter for other preprocedural examination (principal); S42.331A Displaced oblique fracture of shaft of humerus, right arm, initial encounter for closed fracture; X58.XXXA Exposure to other specified factors, initial encounter | CPT/HCPCS: 87635 ==

== ENCOUNTER → 2020-10-26 14:19 | Outpatient (BNVA) | payer MEDICARE, SELFPAY | PROVIDERS: PCP Internal Medicine; Visit Provider Specialist | DX: Z47.89 Encounter for other orthopedic aftercare (principal); S42.331D Displaced oblique fracture of shaft of humerus, right arm, subsequent encounter for fracture with routine healing; X58.XXXD Exposure to other specified factors, subsequent encounter | CPT/HCPCS: 73060 ==

== ENCOUNTER 2020-10-27 16:20 | Inpatient (IN) | payer MEDICARE, SELFPAY ==
[2020-10-26 10:06] VITALS: BMI 26.6
[2020-10-27] VITALS (9 sets, daily range): BP systolic 126–168; BP diastolic 72–105; PULSE 71–97; RESP 16–24; TEMP 35.8–36.8; O2SAT 97–100
--- NOTE | 2020-10-27 | SCC_ITS ---
Procedure Done: Right humerus takedown of nonunion with curettage and open reduction internal fixation 119.8 seconds of fluoroscopic guidance, for a cumulative dose of 2.49mGy, was provided to Dr. Borjas by the radiology department. C-arm images of the RIGHT humerus were saved for the patient's permanent record. [facility]
--- NOTE | 2020-10-27 | XR_ITS ---
WS: [id number] Exam: [place] [id number] Date/Time of Exam: 10/27/2020 12:00 AM Reason For Exam: OR PICS C-arm images of the right humerus are submitted for evaluation. Intraoperative C-arm images of the right humerus depict plate and screw fixation involving a midshaft fracture of the humerus. Alignment is anatomic for healing. Postoperative changes in the adjacent so ft tissues. XR/[place] [id number] IMPRESSION: 1. Internal orthopedic fixation involving a midshaft fracture of the humerus no w in anatomic alignment for healing.
[2020-10-27] MEDS: sodium chloride 0.9% 500 ML 999 ML IV (09:03)
[2020-10-27 09:28] LABS: Basophils # 0.1 10^3/uL (0.0-0.1); Basophils % 0.8 %; Eosinophils # 0.2 10^3/uL (0.0-0.8); Eosinophils % 2.8 %; Hematocrit 33.4 % (37.0-47.0); Hemoglobin 10.5 g/dL (11.5-15.3); Lymphocytes # 1.7 10^3/uL (0.8-4.8); Lymphocytes % 22.4 %; Mean Corpuscular HGB Conc 31.4 g/dL (30.0-36.0); Mean Corpuscular Hemoglobin 29.7 pg (28.0-34.0); Mean Corpuscular Volume 94.6 fL (81-99); Mean Platelet Volume 9.5 fL (7.4-10.4); Monocytes # 0.4 10^3/uL (0.2-0.9); Monocytes % 5.3 %; Neutrophils % 68.4 %; Nucleated Red Blood Cells % 0 %; Platelet Count 315 10^3/cmm (130-400); Red Blood Count 3.53 10^6/uL (4.1-5.3); Red Cell Distribution Width 15.5 % (12.1-15.1); White Blood Count 7.7 10^3/uL (4.0-10.0)
--- NOTE | 2020-10-27 10:04 | W.PM.OPSUD ---
Surgery/Procedure H&P Update DATE OF PROCEDURE: October 27, 2020 DATE H&P PERFORMED: 10/26/20 H&P UPDATE INFORMATION: I have reviewed H&P completed within last 30 days, I have examined patient prior to procedure, No changes to prior documentation and H&P is in [facility] [place] on date indicated PREOP DIAGNOSIS: Nonunion right humerus fracture PLANNED PROCEDURE: Operation Date: 10/27/20 10:15 Proposed Procedures p ORIF rigth humerus fracture 56983 S42.331A(Not Applicable) - Paula Borjas MD Related Problem List Diagnoses (1) Fracture of humeral shaft, right, closed: Qualifiers: Encounter type: initial encounter Fracture morphology: oblique Fracture alignment: displaced Qualified Code(s): S42.331A - Displaced oblique fracture of shaft of humerus, right arm, initial encounter for closed fracture
[2020-10-27 10:27] LABS: Alanine Aminotransferase 8 U/L (0-33); Alkaline Phosphatase 83 IU/L (35-105); Anion Gap 14.1 (5-19); Aspartate Amino Transferase 10 U/L (0-32); Blood Urea Nitrogen 27 mg/dL (8-23); Calcium 9.5 mg/dL (8.5-10.5); Carbon Dioxide 27 mmol/L (22-29); Chloride 105 mmol/L (98-107); Globulin 3.8 g/dL (1.3-4.6); Glucose 146 mg/dL (65-115); Osmolality Calculated 302 mOsm/kg (285-295); Potassium 4.1 mmol/L (3.5-5.1); Sodium 142 mmol/L (136-145); Total Bilirubin 0.3 mg/dL (0.15-1.2); Total Protein 7.8 g/dL (6.6-8.7)
--- NOTE | 2020-10-27 10:34 | W.PM.OPSUD ---
Surgery/Procedure H&P Update DATE OF PROCEDURE: October 27, 2020 DATE H&P PERFORMED: 10/26/20 H&P UPDATE INFORMATION: I have reviewed H&P completed within last 30 days, I have examined patient prior to procedure, No changes to prior documentation and H&P is in [facility] [place] date indicated PREOP DIAGNOSIS: Nonunion right humerus fracture PLANNED PROCEDURE: Operation Date: 10/27/20 10:15 Proposed Procedures p ORIF right humerus fracture 97885 S42.331A(Not Applicable) - Paula Borjas MD
--- NOTE | 2020-10-27 13:16 | ANES.PREANE2 ---
Pre-Anesthetic Assessment Pre-Anesthetic Assessment: Height/Weight: Height 1.57 m Weight 66.224 kg Temp Pulse Resp BP Pulse Ox 98.2 F 94 18 130/86 97 10/27/20 08:26 10/27/20 08:26 10/27/20 08:26 10/27/20 08:26 10/27/20 08:26 Preop Diagnosis: Nonunion right humerus fracture Proposed Procedure: Operation Date: 10/27/20 10:15 Proposed Procedures p ORIF rigth humerus fracture 33863 S42.331A(Not Applicable) - Paula Borjas MD Was Beta Marisela taken within 24 hours: N/A Last intake: Intake Last Liquid Date 10/26/20 Last Liquid Time 21:00 Last Solid Date 10/26/20 Last Solid Time 21:00 Social: Social History: No alcohol and No tobacco Exam: Pre-Anes Outpt Exam: alert, oriented x 3, clear to auscultation bilaterally and regular rate & rhythm Airway: Submandibular: WNL Cervical ROM: WNL MP: 2 Additional comments: Poor dentition, missing several Pulmonary: Pulmonary: Asthma and COPD CV/HEM: CV/HEM: Anemia : : Chronic renal Insufficiency GI: GI: GERD Metabolic: Metabolic: DM Anesthetic Plan: ASA status: 3 Anesthesia: General Risk of > 500 ml blood loss (7ml/kg in children): No Meds/Allergies Current Medications: Current Medications Generic Name Dose Route Start Last Admin Trade Name Freq PRN Reason Stop Dose Admin Sodium Chloride 500 mls @ 999 mls /hr 10/27/20 09:00 10/27/20 09:03 Sodium Chloride 0.9% IV 999 mls/hr .Q31M PRN Administration HYPOTENSION PFSH Anesthesia PFSH: Medical History (Updated 10/27/20 @ 10:05 by Paula Borjas MD) Diabetes mellitus History of recurrent UTI (urinary tract infection) Surgical History H/O tubal ligation History of tonsillectomy and adenoidectomy Family History Mother , AT AGE 91 Stroke Father , AT 99 No problems noted. Social History Smoking and tobacco status: never smoked Alcohol intake: never Marital status: / Current occupational status: retired History of recent travel: No Data Anesthesia CBC & Chem 7: 10/27/20 08:50 10/27/20 08:50 Other Labs: Laboratory Results - last 48 hr 10/27/20 10/27/20 08:50 08:50 WBC 7.7 RBC 3.53 L Hgb 10.5 L Hct 33.4 L MCV 94.6 MCH 29.7 MCHC 31.4 RDW 15.5 H Plt Count 315 MPV 9.5 Neut % (Auto) 68.4 Lymph % (Auto) 22.4 Travis % (Auto) 5.3 Eos % (Auto) 2.8 Baso % (Auto) 0.8 Neut # (Auto) 5.30 Lymph # (Auto) 1.7 Travis # (Auto) 0.4 Eos # (Auto) 0.2 Baso # (Auto) 0.1 Nucleated RBC % (auto) 0 Nucleated RBCs # 0.0 Sodium 142 Potassium 4.1 Chloride 105 Carbon Dioxide 27 Anion Gap 14.1 BUN 27 H Creatinine 1.8 H GFR Calculation Not Reportable Glucose 146 H Calculated Osmolality 302 H Calcium 9.5 Total Bilirubin 0.3 AST 10 ALT 8 Alkaline Phosphatase 83 Total Protein 7.8 Albumin 4.0 Globulin 3.8 Cardiac Studies: No Data to Display
[2020-10-27 13:49] LABS: Add Urine Microscopic? YES; Bilirubin Urine Neg (Negative); Blood Urine Neg (Negative); Glucose Urine UA Norm (Normal); Ketones Urine Negative (Negative); Leukocyte Esterase Urine 2+ (Negative); Nitrate Urine Negative (Negative); Protein Urine Neg (Negative); Specific Gravity, Urine 1.005 (1.005-1.030); Urine Appearance Hazy (CLEAR); Urine Color Straw (Yellow); Urobilinogen Urine Norm (Negative); pH Urine 7 (5-7)
[2020-10-27 13:50] LABS: Add Urine Culture? No; Bacteria Urine 3+ /hpf
[2020-10-27 13:51] LABS: WBC Urine 25-40 /hpf (0-5)
[2020-10-27] MEDS: CELEcoxib 200 mg Capsule 400 MG PO (14:03)
[2020-10-27] MEDS: vancomycin 1,000 MG in sodium chloride 0.9% 250 ML 250 MG IV (14:31)
[2020-10-27] MEDS: vancomycin 1,000 MG SDV 1000 MG IRRIGATION (16:18)
--- NOTE | 2020-10-27 17:54 | PM.OP ---
Operative Report Date of procedure: October 27, 2020 Pre-op Diagnosis: Nonunion right humerus fracture Post-op diagnosis: same Post-op Findings: Fibrous tissue interposed between the 2 fracture fragments. No evidence of callus formation. Procedure Done: Right humerus takedown of nonunion with curettage and open reduction internal fixation Implants: [place] 12 hole by 160 mm 4.0 mm locking compression plate, humerus Pathology: none sent Surgeon: Paula Borjas Quality Control Projectionist: Workspacesamantha Clark OR technicians Anesthesia: General (Intubated, ASA 3) Estimated blood loss (mL): 100 IV fluids (mL): 500 Urine output (mL): 350 Complications: None Findings: Nonunion with dense fibrous tissue between the 2 bony fragments. Long oblique fracture with no evidence of callus. Condition: stable Disposition: PACU (Then to floor for postoperative rehab and pain management) Brief History: This 75-year-old woman presented with a midshaft humerus fracture which involves the proximal shaft extending into the midshaft of the humerus. This was a long oblique fracture and occurred in early September of this year. Attempted treatment was made with a clamshell type orthosis, and the patient went on to obvious nonunion with no evidence of callus formation and worsening position of the fracture. She therefore was scheduled for the above procedure. Risks and complications were discussed with her. She was reluctant to undergo surgical intervention initially, but agreed with proceeding with surgical intervention after closed treatment failed. She understands the risks and complications. Consents were signed preoperatively. Procedure: Patient was seen in the preoperative holding area and right arm was marked. Patient was brought to the operating theater and placed on the operating room table. After undergoing adequate general, intubated, ASA 3 anesthesia, the patient's right upper extremity was prepped and draped in usual fashion utilizing DuraPrep. The arm was draped free and held with the arm sauceda. Fluoroscopy was used throughout the surgical procedure. A surgical pause was performed. At the time of the surgical pause we identified the site and side of surgery as well as the patient's identity and availability of equipment. We also confirmed appropriate administration of IV antibiotics, vancomycin 1 g. Following the above, an incision was made to allow for anterior approach to the humeral shaft. Coracoid was palpated as was the lateral border of the biceps. The incision was longitudinal which began slightly distal to the coracoid process and continued laterally in the line of the deltopectoral groove and along the lateral border of the biceps tendon. Skin and soft tissues were incised using a scalpel hemostasis was obtained using electrocautery. Care was taken to protect neurovascular structures during the process of evaluation. The patient had dissected tissue on her own and had a large area filled with fluid secondary to the nonunion. This was not purulent and not concerning for infection. Interval was developed proximally and distally with care being taken to protect the neurovascular structures. We were then able to access the fracture and the shaft of the humerus. Fracture fragments were evaluated. They were from the surrounding soft tissues and brought up out of the wound. Fibrous tissue was cleared from the fracture fragments using a combination of rongeur, curette, and elevators. Once we were able to separate the fracture fragments from the surrounding soft tissue, we were able to affect a reduction which was found to be nearly anatomic. This was held with clamps. Appropriate plate was evaluated. The plate chosen was a 12 hole 4.0 mm locking compression plate which was 162 mm in length. This allowed adequate proximal and distal screw fixation. Fluoroscopy was used throughout the process. The plate was attached with a combination of locking and nonlocking screws. During the attachment it was followed on fluoroscopy throughout the surgical procedure. We then evaluated the fracture reduction in AP and lateral planes. Images were obtained intraoperatively. We were pleased with the reduction. And therefore, attention was directed to closure. The wound was copiously irrigated and suctioned dry. The subcutaneous tissues were closed with a combination of 0 Vicryl and 2-0 Monocryl. The skin was injected with a combination of 1% lidocaine and half percent bupivacaine with epinephrine. We then placed 2-0 Monocryl in the subcutaneous tissues. The skin was closed with 3-0 running Monocryl followed by Exofin, Steri-Strips, Telfa, ABD, and Tegaderm. Patient was placed in a sling while in the surgical suite. She was then returned to the recovery room in a satisfactory condition. The procedure was well tolerated without complication. The patient will be admitted to the floor for postoperative pain management. 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
--- NOTE | 2020-10-27 18:13 | P.PCN_ITS ---
PACU note PACU note: VSS, Good respiratory effort, report to CREDIT RISK MANAGER Post-Anesthesia Exam: awake
--- NOTE | 2020-10-27 18:13 | PM.PACU ---
PACU note PACU note: VSS, Good respiratory effort, report to COLLISION WORKER Post-Anesthesia Exam: awake
[2020-10-27] MEDS: ondansetron 2 mg/ML SDV 2 mL 4 MG IVP (18:19)
--- NOTE | 2020-10-27 18:22 | SUR.PHASEI ---
PT AWAKES TO VOICE, FOLLOWS COMMAND, RT UPPER ARM DRESSING D/I SHOULDER IMMOBILIZER ON , DISTAL HAND PINK WARM WITH CAP REFILL LESS THAN [address] CALVO AT BEDSIDE PT MOVES THUMB AND FINGERS., FIRST ICE TO RT UPPER ARM BILAT FOOT PUMPS ON
--- NOTE | 2020-10-27 18:29 | ANE.PACU2 ---
Inpatient post-anesthesia follow up: Airway intact: Yes Vital signs: Temperature 97.8 F Pulse Rate 85 Respiratory Rate 17 Blood Pressure 145/86 Pulse Oximetry 99 Oxygen Delivery Me thod Nasal Cannula Oxygen Flow Rate 3 Fraction of Inspir ed Oxygen Hydration adequate: Yes Nausea and vomiting: No Pain level: 2 Mental status: Baseline
[2020-10-27] MEDS: tamsulosin 0.4 mg Capsule PO (21:31)
[2020-10-28 02:22] LABS: Basophils # 0.1 10^3/uL (0.0-0.1); Basophils % 0.6 %; Eosinophils # 0.1 10^3/uL (0.0-0.8); Eosinophils % 0.8 %; Hematocrit 28.3 % (37.0-47.0); Hemoglobin 8.6 g/dL (11.5-15.3); Lymphocytes # 1.4 10^3/uL (0.8-4.8); Lymphocytes % 16.6 %; Mean Corpuscular HGB Conc 30.4 g/dL (30.0-36.0); Mean Corpuscular Hemoglobin 29.3 pg (28.0-34.0); Mean Corpuscular Volume 96.3 fL (81-99); Mean Platelet Volume 9.4 fL (7.4-10.4); Monocytes # 0.4 10^3/uL (0.2-0.9); Monocytes % 4.4 %; Neutrophils # 6.61 10^3/uL (1.8-7.7); Neutrophils % 77.4 %; Nucleated Red Blood Cells % 0 %; Platelet Count 232 10^3/cmm (130-400); Red Blood Count 2.94 10^6/uL (4.1-5.3); Red Cell Distribution Width 15.7 % (12.1-15.1); White Blood Count 8.6 10^3/uL (4.0-10.0)
[2020-10-28 03:26] VITALS: BP 105/65; PULSE 82; RESP 16; TEMP 36.6; O2SAT 99
[2020-10-28 08:00] VITALS: BP 99/57; PULSE 81; RESP 17; TEMP 36.4; O2SAT 94
[2020-10-28 08:44] VITALS: PULSE 78; RESP 18; O2SAT 97
[2020-10-28] MEDS: multivitamin therapeutic Tablet 1 TAB PO (08:51)
[2020-10-28] MEDS: montelukast sodium 10 mg Tablet PO (08:51)
[2020-10-28] MEDS: CELEcoxib 200 mg Capsule PO ×2 (08:51→17:28)
[2020-10-28] MEDS: docusate sodium 100 mg Capsule PO ×2 (08:51→17:28)
[2020-10-28] MEDS: pantoprazole DR 40 mg Tablet PO ×2 (08:52→17:29)
--- NOTE | 2020-10-28 09:32 | PC.PHAR ---
pt states she has a dulera inhaler and montelukast and is unsure of mcg and mg-[facility] states they can see back for 18 months and states that medication didnt pull up-pt states in [place] the dr changed her iron to 325mg po eod-ext med history shows last filled on 09/28/20 for 325mg po daily-pt states she is still taking the bactrim ds ext med history shows filled on 09/20/20 for 21d/s-pt states her tresiba flextouch was increased to 20 units qpm-ext med history shows filled on 10/15/20 10 units hs
--- NOTE | 2020-10-28 09:43 | PC.CHAP ---
Pastoral Care Encounter/Spiritual Assessment Type of Contact [] Declined principal trainer visit [] Patient/Family/Request visit [] Outpatient visit [] Follow-up visit [] Physician referral [] Code/Alert [] Routine visit [] Staff referral [] Actively dying [] Patient sleeping [] Family support [] [] Out of room [] Palliative care [] [] Receiving care in room [] Pre-surgical visit [] Trauma [] Long length of stay [] ICU visit [] Other: Relational/Emotional Strength [] Patient feels connected with others/family/visitors/staff [] Distress [] Loneliness/isolation [] Abandonment Spirituality of Patient [x] Person of Ivanna [] Attends Pentecostal of their Ivanna [x] Believes in Prayer [] Reads Bible or Rastafari materials [] There are Spiritual issues to be addressed Chucking And Sawing Machine Operator Interventions [x] Prayer [x] Active listening [] Non-anxious presence [] Spiritual/emotional support [] Crisis/trauma care [] Spiritual counseling [] Bereavement support [] Provided bereavement packet [] Provided Bible/devotional materials [] Provided toy/stuffed animal, coloring book to patient or family member [] Provided Communion [] Anointing/[place] [] Salvation [x] Completed spiritual assessment [] Other: Impact on Illness or Injury [] Angry [] Fearful [] Anxious [] Often cries [] Exhaustion [] Unable to work [] Unable to attend synagogue [] Unable to walk/stand [] Unable to read [] Unable to drive [] Unable to eat/drink [] Unable to sleep [] Unable to be with family [] Patient intubated [] Other: Summary Time spent with patient 10 min x
[2020-10-28 11:43] VITALS: BP 107/60; PULSE 73; RESP 17; TEMP 36.9; O2SAT 94
--- NOTE | 2020-10-28 13:44 | P.PN_ITS ---
Subjective Subjective: Interval history: The patient is doing well, but she did experience some dizziness when she stood up. She has concerns about going home and she is quite unsteady on her feet. Medications: Reviewed: Yes Vitals/I&O/Wt Last Vital Signs Temp 98.4 F 10/28/20 11:43 Pulse 73 10/28/20 11:43 Resp 17 10/28/20 11:43 BP 107/60 10/28/20 11:43 Pulse Ox 94 10/28/20 11:43 10/27/20 10/28/20 10/28/20 22:59 06:59 14:59 Intake Total 850 / 950 280 / 1230 480 / 480 Output Total 450 / 450 Balance 400 / 500 280 / 780 480 / 480 Physical Exam Const: COMMON NORMALS: no acute distress, average body habitus, patient oriented x3 and alert GENERAL APPEARANCE: cooperative and comfortable ORIENTATION/CONSCIOUSNESS: Yes awake HENMT: COMMON NORMALS: normocephalic and atraumatic HEAD & SCALP: normocephalic and atraumatic Eye: GENERAL EYE: appearance normal, both eyes and all related structures Chest: COMMONS NORMALS: normal inspection of the chest Resp: COMMON NORMALS: normal respiratory effort EFFORT & INSPECTION: Yes able to speak in complete sentences and Yes symmetric chest movement Extremity: RIGHT UPPER EXTREMITY: Yes shoulder joint (Dressing is removed. The patient's wound is benign. There is bruising) Right shoulder: Yes Right shoulder joint inspection exam (There is minimal swelling and no drainage. Slight tenderness to palpation.), Yes Right shoulder joint ROM exam (Minimal tenderness to gentle range of motion.) and Yes Right shoulder joint neurovascular exam (Intact including the radial nerve with good extension of the fingers/thumb) Neuro: COMMON NORMALS: patient oriented x3 SENSORIUM/ORIENTATION: Yes alert Psych: COMMON NORMALS: mental status grossly normal APPEARANCE: Yes grossly normal ATTITUDE: Yes calm and Yes engaged ATTENTION/CONCENTRATION: Yes attention grossly intact Skin: COMMON NORMALS: no rashes or lesions noted GENERAL SKIN EXAM: no rashes or lesions noted Urinary Catheter Management^: F: Cath Placed During This Visit: yes, but has since been removed by the nurse Reason for Continuing Indwelling Catheter: Perioperative Use in Selected Surgeries Urinary Catheter Date of Insertion: 10/27/20 Urinary Catheter Time of Insertion: 15:45 Date Urinary Catheter Removed: 10/27/20 Time Urinary Catheter Discontinued: 17:57 Data : 10/29/20 02:29 10/27/20 08:50 A&P Assessment and plan (1) 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 She tolerated this well. She is on postop day 1 and today, she remains neurologically intact. In particular, the radial nerve is functioning normally. Her wound is benign with no evidence of infection. She did get up with physical therapy, but she feels unbalanced and got a bit dizzy. Given the patient's age and lack of use of this right upper extremity, it appears that she would be better served by spending 1 more night in the hospital to work with physical therapy and become more independent. She has not even walked outside of her room at this point secondary to dizziness concerns. We will reevaluate her H&H in the morning as currently, she is at 8.6 and 28.3. We will continue to monitor her for further dizziness. Status: Acute Qualifiers: Fracture alignment: displaced Fracture morphology: oblique Humerus Location: shaft Qualified Code(s): S42.331K - Displaced oblique fracture of shaft of humerus, right arm, subsequent encounter for fracture with nonunion Attestations Medical Necessity Statement*: Patient requires further hospitalization overnight for recheck of her H&H in the a.m. and further physical therapy for independence and safety reasons. She will be converted to inpatient. 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
[2020-10-28] MEDS: vancomycin 1,000 MG in sodium chloride 0.9% 250 ML 250 MG IV (15:17)
[2020-10-28] MEDS: HYDROcodone-acetaminophen 5-325 mg Tablet 1 TAB PO (17:28)
[2020-10-28] MEDS: tamsulosin 0.4 mg Capsule PO (21:05)
[2020-10-28 23:51] VITALS: BP 100/58; PULSE 90; RESP 18; TEMP 36.7; O2SAT 96
[2020-10-29] VITALS (9 sets, daily range): BP systolic 105–128; BP diastolic 51–76; PULSE 80–90; RESP 16–18; TEMP 36.5–36.9; O2SAT 92–99
[2020-10-29 02:45] LABS: Hematocrit 25.9 % (37.0-47.0); Hemoglobin 7.8 g/dL (11.5-15.3)
[2020-10-29] MEDS: acetaminophen 500 mg Tablet 1000 MG PO ×3 (06:21→20:04)
[2020-10-29] MEDS: docusate sodium 100 mg Capsule PO ×2 (08:42→17:40)
[2020-10-29] MEDS: CELEcoxib 200 mg Capsule PO ×2 (08:42→17:39)
[2020-10-29] MEDS: pantoprazole DR 40 mg Tablet PO ×2 (08:42→17:40)
[2020-10-29] MEDS: ferrous sulfate EC 325 mg Tablet PO (08:42)
[2020-10-29] MEDS: multivitamin therapeutic Tablet 1 TAB PO (08:42)
[2020-10-29] MEDS: montelukast sodium 10 mg Tablet PO (08:42)
[2020-10-29] MEDS: HYDROcodone-acetaminophen 5-325 mg Tablet 1 TAB PO (11:33)
--- NOTE | 2020-10-29 12:49 | PC.NURSE ---
fatigued Pt laying in bed and c/o feeling fatigued. Pt closed her eyes after I talked with her.
--- NOTE | 2020-10-29 16:03 | PM.PN ---
Subjective Subjective: Interval history: The patient is doing well, but she complains of significant fatigue. She has continued to drop her H&H slightly, and she is experiencing some dizziness with attempts at ambulation. At this point, she states neither she nor her family are comfortable with her going home today. Medications: Reviewed: Yes Vitals/I&O/Wt Last Vital Signs Temp 97.8 F 10/29/20 11:23 Pulse 83 10/29/20 11:23 Resp 17 10/29/20 11:23 BP 114/67 10/29/20 11:23 Pulse Ox 99 10/29/20 11:23 10/29/20 10/29/20 10/29/20 06:59 14:59 22:59 Intake Total 480 / 480 Balance 480 / 480 Physical Exam Const: COMMON NORMALS: no acute distress, average body habitus, patient oriented x3 and alert GENERAL APPEARANCE: cooperative and comfortable ORIENTATION/CONSCIOUSNESS: Yes awake HENMT: COMMON NORMALS: normocephalic and atraumatic HEAD & SCALP: normocephalic and atraumatic Eye: GENERAL EYE: appearance normal, both eyes and all related structures Chest: COMMONS NORMALS: normal inspection of the chest Resp: COMMON NORMALS: normal respiratory effort EFFORT & INSPECTION: Yes able to speak in complete sentences and Yes symmetric chest movement Extremity: RIGHT UPPER EXTREMITY: Yes shoulder joint (There is ecchymosis about the arm, but there is no drainage) Right shoulder: Yes Right shoulder joint inspection exam (Wound is benign with no erythema minimal tenderness), Yes Right shoulder joint ROM exam (Not evaluated) and Yes Right shoulder joint neurovascular exam (Intact distal to the elbow.) Neuro: COMMON NORMALS: patient oriented x3 SENSORIUM/ORIENTATION: Yes alert Psych: COMMON NORMALS: mental status grossly normal APPEARANCE: Yes grossly normal ATTITUDE: Yes calm and Yes engaged ATTENTION/CONCENTRATION: Yes attention grossly intact Skin: COMMON NORMALS: no rashes or lesions noted GENERAL SKIN EXAM: no rashes or lesions noted Urinary Catheter Management^: F: Cath Placed During This Visit: yes, but has since been removed by the nurse Reason for Continuing Indwelling Catheter: Perioperative Use in Selected Surgeries Urinary Catheter Date of Insertion: 10/27/20 Urinary Catheter Time of Insertion: 15:45 Date Urinary Catheter Removed: 10/27/20 Time Urinary Catheter Discontinued: 17:57 Data : 10/29/20 02:29 10/27/20 08:50 A&P Assessment and plan (1) 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 She tolerated this well. She is on postop day 2, and she continues to remain neurologically intact. In particular, the radial nerve is functioning normally. Her wound is benign with no evidence of infection. She did get up with physical therapy, but she feels unbalanced and got a bit dizzy. Also, she notes significant fatigue which is impacting her ability to participate with therapy. Given the patient's age and lack of use of this right upper extremity, it appears that she would be better served by spending 1 more night in the hospital to work with physical therapy and become more independent. She notes that she is not comfortable going home, and her family is not comfortable having her come home. She has not even walked outside of her room at this point secondary to dizziness concerns. Secondary to her fatigue and dizziness, we will give her 1 unit of packed red blood cells today. We will reevaluate her H&H in the morning as currently, she is at 7.8 and 25.9. We will continue to monitor her for further dizziness. Status: Acute Qualifiers: Humerus Location: shaft Fracture morphology: oblique Fracture alignment: displaced Qualified Code(s): S42.331K - Displaced oblique fracture of shaft of humerus, right arm, subsequent encounter for fracture with nonunion Attestations Medical Necessity Statement*: Patient will require an H&H in the morning to evaluate benefit of blood transfusion. 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
[2020-10-29] MEDS: tamsulosin 0.4 mg Capsule PO (20:04)
[2020-10-29] MEDS: oxyCODONE 5 mg IR Tab/Cap PO (20:04)
[2020-10-29] MEDS: sodium chloride 0.9% (100 ml) 100 ML 125 ML (21:00)
[2020-10-30] VITALS: BP 125/83; PULSE 77; RESP 18; TEMP 36.7
[2020-10-30 00:10] VITALS: BP 123/68; PULSE 82; RESP 18; TEMP 36.6; O2SAT 99
[2020-10-30 03:00] LABS: Hematocrit 28.4 % (37.0-47.0); Hemoglobin 8.6 g/dL (11.5-15.3)
[2020-10-30 05:14] VITALS: BP 142/77; PULSE 80; RESP 18; TEMP 36.5; O2SAT 98
[2020-10-30] MEDS: acetaminophen 500 mg Tablet 1000 MG PO (06:24)
[2020-10-30 07:07] VITALS: BP 132/79; PULSE 85; RESP 18; TEMP 36.6; O2SAT 97
[2020-10-30] MEDS: montelukast sodium 10 mg Tablet PO (08:34)
[2020-10-30] MEDS: docusate sodium 100 mg Capsule PO (08:35)
[2020-10-30] MEDS: pantoprazole DR 40 mg Tablet PO (08:35)
[2020-10-30] MEDS: CELEcoxib 200 mg Capsule PO (08:35)
[2020-10-30] MEDS: multivitamin therapeutic Tablet 1 TAB PO (08:36)
--- NOTE | 2020-10-30 10:26 | PC.CHAP ---
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 [] Patient/Family/Request visit [] Outpatient visit [] Follow-up visit [] Physician referral [] Code/Alert [x] Routine visit [] Staff referral [] Actively dying [] Patient sleeping [] Family support [] [] Out of room [] Palliative care [] [] Receiving care in room [] Pre-surgical visit [] Trauma [] Long length of stay [] ICU visit [] Other: Relational/Emotional Strength [x] Patient feels connected with others/family/visitors/staff [] Distress [] Loneliness/isolation [] Abandonment Spirituality of Patient [x] Person of Ivanna [x] Attends Confucianist of their Ivanna [x] Believes in Prayer [] Reads Bible or Congregation materials [] There are Spiritual issues to be addressed Inside Upholsterer Interventions [x] Prayer [x] Active listening [x] Non-anxious presence [x] Spiritual/emotional support [] Crisis/trauma care [] Spiritual counseling [] Bereavement support [] Provided bereavement packet [] Provided Bible/devotional materials [] Provided toy/stuffed animal, coloring book to patient or family member [] Provided Communion [] Anointing/[place] [] Salvation [] Completed spiritual assessment [] Other: Impact on Illness or Injury [] Angry [] Fearful [] Anxious [] Often cries [] Exhaustion [] Unable to work [] Unable to attend adventism [] Unable to walk/stand [] Unable to read [] Unable to drive [] Unable to eat/drink [] Unable to sleep [] Unable to be with family [] Patient intubated [] Other: Summary patient doing much better pain light Time spent with patient 10 min
[2020-10-30 11:51] VITALS: BP 134/77; PULSE 87; RESP 18; TEMP 36.7; O2SAT 96
--- NOTE | 2020-10-30 12:58 | PM.DCS ---
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: Status: Acute Permanent problem details: Right humerus takedown of nonunion with curettage and open reduction internal fixation using the Mitzi 12 hole by 160 mm 4.0 mm locking compression plate, humerus Qualifiers: Humerus Location: shaft Fracture morphology: oblique Fracture alignment: displaced Qualified Code(s): S42.331K - Displaced oblique fracture of shaft of humerus, right arm, subsequent encounter for fracture with nonunion Reason for Visit Reason for Visit: right humerus fracture shaft Hospital Course Hospital Course This 75-year-old woman presented to the hospital with nonunion of her right midshaft humerus fracture. This was quite a long extended oblique fracture with displacement. She was treated in a clamshell brace and did not heal, therefore, we elected to proceed with takedown of her nonunion followed with open reduction internal fixation utilizing a long humeral plate. The patient was brought to the hospital on October 27 at which time she underwent the above procedure uneventfully. On the first postoperative day, the patient was somewhat unsteady and dizzy, and therefore, she was converted to an inpatient status. She then had a low H&H and was subsequently transfused 1 unit to address this. Prior to her transfusion, she suffered dizziness as well as significant fatigue. Following the blood, she felt much improved. She was ready for discharge home on postop day 3. She will be discharged home with home health. She is in agreement with the plan. Her wound on the day of discharge is benign, there is no drainage, and she remains neurologically intact in her right upper extremity distal to the open reduction internal fixation. Physical Exam Const: COMMON NORMALS: no acute distress, average body habitus, patient oriented x3 and alert GENERAL APPEARANCE: cooperative and comfortable ORIENTATION/CONSCIOUSNESS: Yes awake HENMT: COMMON NORMALS: normocephalic and atraumatic HEAD & SCALP: normocephalic and atraumatic Eye: GENERAL EYE: appearance normal, both eyes and all related structures Chest: COMMONS NORMALS: normal inspection of the chest Resp: COMMON NORMALS: normal respiratory effort EFFORT & INSPECTION: Yes able to speak in complete sentences and Yes symmetric chest movement Extremity: RIGHT UPPER EXTREMITY: Yes shoulder joint (Wound remains benign with no drainage.) Right shoulder: Yes Right shoulder joint inspection exam ( Minimal ecchymosis.), Yes Right shoulder joint ROM exam (Not evaluated) and Yes Right shoulder joint neurovascular exam (Intact distal to the open reduction internal fixation) Neuro: COMMON NORMALS: patient oriented x3 SENSORIUM/ORIENTATION: Yes alert Psych: COMMON NORMALS: mental status grossly normal APPEARANCE: Yes grossly normal ATTITUDE: Yes calm and Yes engaged ATTENTION/CONCENTRATION: Yes attention grossly intact Skin: COMMON NORMALS: no rashes or lesions noted GENERAL SKIN EXAM: no rashes or lesions noted Urinary Catheter Management^: F: Cath Placed During This Visit: yes, but has since been removed by the nurse Reason for Continuing Indwelling Catheter: Perioperative Use in Selected Surgeries Urinary Catheter Date of Insertion: 10/27/20 Urinary Catheter Time of Insertion: 15:45 Date Urinary Catheter Removed: 10/27/20 Time Urinary Catheter Discontinued: 17:57 Discharge Data Data Completed and Pending: Completed Studies During Hospitalization Category Date Time Status XR humerus RT 730 60 Routine Exams 10/27/20 Completed Pending at discharge Category Date Time Status PRBC [Leukocyte R educed RBC] Routin e Lab 10/29/20 15:25 Results Type and Screen R outine Lab 10/29/20 15:25 Results Labs from last 24 hours 10/30/20 10/29/20 02:29 15:25 Hgb 8.6 L Hct 28.4 L Blood Type A Positive Rho(D) Type Positive Antibody Screen Negative Crossmatch See Detail Vitals: Last Vital Signs Temp 98.0 F 10/30/20 11:51 Pulse 87 10/30/20 11:51 Resp 18 10/30/20 11:51 BP 134/77 10/30/20 11:51 Pulse Ox 96 10/30/20 11:51 Discharge Plan Discharge Patient Disposition: Home Health Service Condition: Stable Prescriptions: New hydrocodone-acetaminophen 5-325 mg Tablet 1 tab PO Q6H PRN (Reason: pain) Qty: 40 RF: 0 celecoxib 200 mg Capsule 200 mg PO DAILY Qty: 30 RF: 0 polyethylene glycol 3350 17 gram Powder In Packet 17 g PO BID PRN (Reason: Constipation) Qty: 0 RF: 0 Continued sulfamethoxazole-trimethoprim 800-160 mg tablet 1 tab PO BID Qty: 42 RF: 1 (DME) HUMERAL FRACTURE BRACE See Rx Instructions .Route .MEDSUPPLY Qty: 1 RF: 0 tamsulosin 0.4 mg capsule 0.4 mg PO .at bedtime Qty: 90 RF: 3 Miralax 17 gram/dose Powder 17 g PO DAILY PRN (Reason: Constipation) RF: 0 Ventolin HFA 90 mcg/actuation Hfa Aerosol Inhaler 2 puff INHALATION Q4H PRN (Reason: Shortness Of Breath) RF: 0 vitamin E 1 cap PO DAILY RF: 0 montelukast [Singulair] 10 mg Tablet 10 mg PO DAILY RF: 0 Tresiba FlexTouch U-200 200 unit/mL (3 mL) insulin pen 20 unit SUBCUT QPM RF: 0 Dulera See Rx Instructions .ROUTE .COMPLEX RF: 0 pantoprazole 40 mg Tablet,Delayed Release (Dr/Ec) 40 mg PO BID Qty: 60 RF: 0 ferrous sulfate 325 mg (65 mg iron) tablet 325 mg PO EVERY OTHER DAY Qty: 0 RF: 0 Discharge Orders: Discharge Order (Routine); Ordered 10/30/20 Ordered By: Paula Borjas Other Ambulatory Orders: DME: Cane/ Crutches (Order) Location: None Selected Ordered By: Paula Borjas Referrals: Paula Borjas MD [Physician] - 11/16/20 8:45 am Discharge Diet: Advance as tolerated, Usual diet and Diabetic Discharge Activity: Increase activity as tolerated, Limit activity as instructed and As per PT/OT instructions Patient Instructions: Fractures - Humerus Activity Restrictions/Additional Instructions: Maintain dressing and sling. Follow-up in the office as instructed. Exercise as tolerated and instructed. 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
[2020-10-30 14:21] VITALS: BP 134/77; PULSE 87; RESP 18; TEMP 36.7; O2SAT 96
== END 2020-10-30 14:18 | disposition home health service (06) | DRG 494 ==
LOC: MEDSURG 18:10
PROVIDERS: Admitting Provider Specialist; PCP Internal Medicine; Visit Provider Specialist
PROC: 0PSF04Z Reposition Right Humeral Shaft with Internal Fixation Device, Open Approach (ICD-10-PCS; CPT 23615; principal; 2020-10-27 10:05)
DX: S42.331A Displaced oblique fracture of shaft of humerus, right arm, initial encounter for closed fracture (principal); X58.XXXA Exposure to other specified factors, initial encounter; Z87.440 Personal history of urinary (tract) infections; R42 Dizziness and giddiness; D64.9 Anemia, unspecified
CPT/HCPCS: 36415; 36430; 73060; 76000; 80053; 81001; 85014; 85018; 85025; 86850; 86900; 86920; 96365; 97110; 97116; 97161; 97166; 97530; 97535; C1713; G0378; J0131; J2405; J2704; J3010; J3370; J3490; J7040; J7050; P9016

== ENCOUNTER → 2020-11-16 09:06 | Outpatient (BNVA) | payer MEDICARE, SELFPAY | PROVIDERS: PCP Internal Medicine; Visit Provider Specialist | DX: S42.331K Displaced oblique fracture of shaft of humerus, right arm, subsequent encounter for fracture with nonunion (principal); X58.XXXA Exposure to other specified factors, initial encounter | CPT/HCPCS: 73060 ==

== ENCOUNTER → 2020-12-16 08:08 | Outpatient (BNVA) | payer MEDICARE, SELFPAY | PROVIDERS: PCP Internal Medicine; Visit Provider Specialist | DX: S42.331K Displaced oblique fracture of shaft of humerus, right arm, subsequent encounter for fracture with nonunion (principal); Z98.890 Other specified postprocedural states; W19.XXXD Unspecified fall, subsequent encounter | CPT/HCPCS: 73060 ==

== ENCOUNTER 2020-12-30 08:23 | Outpatient (RCR) | payer MEDICARE, SELFPAY | END 2021-01-01 23:59 | disposition home or self-care (01) | LOC: SPT 08:23 | PROVIDERS: PCP Internal Medicine; Referring Provider Specialist; Visit Provider Specialist | DX: Z47.89 Encounter for other orthopedic aftercare (principal) | CPT/HCPCS: 97161 ==

== ENCOUNTER 2021-01-02 06:00 | Outpatient (RCR) | payer MEDICARE, SELFPAY | END 2021-02-01 23:59 | disposition home or self-care (01) | LOC: SPT 06:00 | PROVIDERS: PCP Internal Medicine; Referring Provider Specialist; Visit Provider Specialist | DX: Z47.89 Encounter for other orthopedic aftercare (principal) | CPT/HCPCS: 97110; 97140 ==

== ENCOUNTER → 2021-01-27 08:57 | Outpatient (BNVA) | payer MEDICARE, SELFPAY | PROVIDERS: PCP Internal Medicine; Visit Provider Specialist | DX: S42.331K Displaced oblique fracture of shaft of humerus, right arm, subsequent encounter for fracture with nonunion (principal); W19.XXXD Unspecified fall, subsequent encounter; Z98.890 Other specified postprocedural states | CPT/HCPCS: 73060 ==

== ENCOUNTER 2021-02-02 06:00 | Outpatient (RCR) | payer MEDICARE, SELFPAY | END 2021-03-03 23:59 | disposition home or self-care (01) | LOC: SPT 06:00 | PROVIDERS: PCP Internal Medicine; Referring Provider Specialist; Visit Provider Specialist | DX: Z47.89 Encounter for other orthopedic aftercare (principal) | CPT/HCPCS: 97110 ==

== ENCOUNTER 2021-03-04 06:00 | Outpatient (RCR) | payer MEDICARE, SELFPAY | END 2021-04-03 23:59 | disposition home or self-care (01) | LOC: SPT 06:00 | PROVIDERS: PCP Internal Medicine; Referring Provider Specialist; Visit Provider Specialist | DX: Z47.89 Encounter for other orthopedic aftercare (principal) | CPT/HCPCS: 97110 ==

== ENCOUNTER 2021-04-04 06:00 | Outpatient (RCR) | payer MEDICARE, SELFPAY | END 2021-05-04 23:59 | disposition home or self-care (01) | LOC: SPT 06:00 | PROVIDERS: PCP Internal Medicine; Referring Provider Specialist; Visit Provider Specialist | DX: Z47.89 Encounter for other orthopedic aftercare (principal) | CPT/HCPCS: 97110 ==

== ENCOUNTER 2024-03-15 22:11 | Inpatient (IN) | payer MEDICARE, SELFPAY ==
[2024-03-15 22:14] VITALS: BP 128/97; PULSE 99; RESP 17; TEMP 36.6; O2SAT 99; BMI 36.6
--- NOTE | 2024-03-15 22:15 | XRR_ITS ---
PROCEDURE INFORMATION: Exam: XR Chest Exam date and time: 03/15/2024 10:20 PM Age: 78 years old Clinical indication: Pain; Shortness of breath; Chest pressure; Additional info: juan MACHUCA TECHNIQUE: Imaging protocol: Radiologic exam of the chest. Views: 1 view. COMPARISON: CR XR chest 1V portable [id number] 08/17/2020 6:41 AM FINDINGS: Lungs: Emphysematous changes. Bibasilar atelectasis versus minimal infiltrate. Pleural spaces: Unremarkable. No pleural effusion. No pneumothorax. Heart/Mediastinum: Borderline cardiomegaly. Bones/joints: Unremarkable. XR/XR chest 1V portable [id number] IMPRESSION: 1. Emphysematous changes. 2. Borderline cardiomegaly. 3. Bibasilar atelectasis versus minimal infiltrate.
[2024-03-15 22:30] VITALS: BP 125/73; PULSE 101; RESP 26; O2SAT 94
--- NOTE | 2024-03-15 22:30 | ECG_ITS ---
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 Measurements Intervals [place] Rate: 97 P: 79 MO: 174 QRS: 106 QRSD: 85 T: 61 QT: 325 QTc: 414 Interpretive Statements SINUS RHYTHM POSSIBLE LEFT ATRIAL ENLARGEMENT [-0.1mV P-WAVE IN V1/V2] RIGHT AXIS DEVIATION [QRS AXIS > 100] LOW QRS VOLTAGE IN PRECORDIAL LEADS [QRS DEFLECTION < 1.0 mV IN CHEST LEADS] Compared to ECG 08/09/2020 00:35:12 Right-axis deviation now present Electronically Signed On 03-16-2024 13:16:35 CDT by Elan Thorne M.D. [id number]
[2024-03-15 22:31] LABS: Basophils % 0.3 %; Eosinophils % 0.4 %; Hematocrit 41.4 % (36-47); Lymphocytes # 1.1 10^3/uL (0.8-4.8); Lymphocytes % 15.9 %; Mean Corpuscular HGB Conc 32.9 g/dL (30-55); Mean Corpuscular Hemoglobin 33.4 pg (27-33); Mean Corpuscular Volume 101.7 fl (85-98); Monocytes # 0.3 10^3/uL (0.2-0.9); Neutrophils # 5.49 10^3/uL (1.8-7.7); Neutrophils % 79.3 %; Nucleated Red Blood Cells % 0 %; Platelet Count 162 10^3/cmm (157-399); Red Blood Count 4.07 10^6/uL (3.85-5.65); Red Cell Distribution Width 15.6 % (12.1-15.1); White Blood Count 6.93 10^3/uL (3.29-11.43)
--- NOTE | 2024-03-15 22:31 | W.ED.SOB ---
HPI - SOB/Dyspnea General: Chief Complaint: Shortness of Breath/Dyspnea Stated Complaint: SOB Time Seen by Provider: 03/15/24 22:15 History of Present Illness: HPI Narrative: 78-year-old female with a history of diabetes, obesity and COPD who presents to the emergency room with worsening shortness of breath over the last week or so. She says she is developed worsening swelling in her legs. She said it got way worse over the last couple days and finally she called an ambulance today. They report she was hypoxemic on their presentation. She does have wheeze on exam. She also has some edema. No chest pain. No nausea or vomiting. No abdominal pain. No altered mental status. No focal motor deficits. Review of Systems Narrative: Constitutional symptoms: Negative except as documented in HPI. Skin symptoms: Negative except as documented in HPI. Eye symptoms: Negative except as documented in HPI. ENMT symptoms: Negative except as documented in HPI. Respiratory symptoms: Negative except as documented in HPI. Cardiovascular symptoms: Negative except as documented in HPI. Gastrointestinal symptoms: Negative except as documented in HPI. Genitourinary symptoms: Negative except as documented in HPI. Musculoskeletal symptoms: Negative except as documented in HPI. Neurologic symptoms: Negative except as documented in HPI. Psychiatric symptoms: Negative except as documented in HPI. Endocrine symptoms: Negative except as documented in HPI. [facility] ED PFSH: Medical History Diabetes mellitus History of recurrent UTI (urinary tract infection) Surgical History H/O tubal ligation History of tonsillectomy and adenoidectomy Family History Mother , AT AGE 91 Stroke Father , AT 99 No problems noted. Social History Smoking and tobacco/nicotine status: never used tobacco/nicotine Alcohol intake: never Marital status: / Current occupational status: retired Physical Exam Narrative: EXAM NARRATIVE: General: Alert, moderate distress. Skin: Warm, dry. Head: Normocephalic, atraumatic. Neck: Supple, trachea midline. Eye: Extraocular movements are intact. Ears, nose, mouth and throat: Tacky oral mucosa Cardiovascular: Regular rate and rhythm, Normal peripheral perfusion. Patient does have tibial edema. Respiratory: coarse, scattered wheeze, moderate increased wob. tachypnea, prolonged expiratory phase. breath sounds are equal, Symmetrical chest wall expansion. Gastrointestinal: Soft, Nontender, Non distended, Normal bowel sounds. Musculoskeletal: Normal ROM, no deformity. Neurological: Alert and oriented to person, place, time, and situation, No focal neurological deficit observed. Psychiatric: Cooperative, appropriate mood & affect. Course Vital Signs: Vital signs: Vital Signs Temperature 97.9 F 03/15/24 22:14 Pulse Rate 97 03/15/24 23:27 Respiratory Rate 22 H 03/15/24 23:27 Blood Pressure 128/97 03/15/24 22:14 Pulse Oximetry 98 03/15/24 23:27 Oxygen Delivery Me thod Nasal Cannula 03/15/24 23:27 Oxygen Flow Rate 4 03/15/24 23:27 MDM - SOB/Dyspnea Medical Decision Making Differential diagnosis for patient with shortness of breath includes but is not limited to and based on the above HPI, review of systems and physical exam: Pneumonia. Bronchitis. Asthma or COPD with acute exacerbation. Acute coronary syndrome / [place]. Pulmonary embolism. Anxiety. Congestive heart failure. Viral infections including influenza and Covid-19. Atrial fibrillation. Anxiety. Pleural effusion. Pneumothorax. Workup: Lab work, chest X-ray and EKG ordered to evaluate, rule in and rule out above pathologies Chest x-ray: Borderline cardiomegaly. Atelectasis versus effusions in the lung bases. This was reviewed and interpreted by myself the ER physician. EKG: Time 2230. Rate 97. Normal sinus rhythm, No ST-T changes, no ectopy, normal ME & QRS intervals, This was reviewed and interpreted by myself the ER physician at 2235 Lab Review: Laboratory results were reviewed and interpreted by myself the emergency room physician. White count is 6.9. Hemoglobin is 13.6. BUN and creatinine are 41 and 2.8 which is slightly up from her baseline. Potassium is borderline high at 5.3. Her proBNP is elevated at 20,000. The last measurement was only about 1000 I reviewed the patient's medical record. Reexamination: Patient appears somewhat improved after breathing treatments and says that that did help her some. She still has some wheeze. She still requiring 4 L nasal cannula. No altered mental status. No focal motor deficits. Consultation: I spoke with Dr. Banda who is admitting the patient to the hospital. Assessment and plan: COPD with acute exacerbation Acute hypoxemic respiratory failure New onset congestive heart failure Acute on chronic renal insufficiency ?IV doxycycline, IV Solu-Medrol, updrafts. ? I am holding on fluids and I am holding on diuresis. She has worsening renal function but what appears to be a new onset of congestive heart failure as she has an elevated proBNP and lower extremity swelling. -I discussed the patient with the hospitalist on-call who is admitting the patient. - Discussed findings and plan with patient. Answered any questions. - All laboratory values were reviewed and interpreted personally by myself, the ER physician - All imaging was reviewed and interpreted personally by myself, the ER physician. - Evaluation and treatment of this problem were appropriate in the emergency setting -I spent a total of >35 minutes of critical care time managing the patient, independent of any other practitioner. -The time involved in the performance of separately reportable procedures was not counted towards critical care time. Lab Data 03/15/24 22:19 03/15/24 22:19 Labs/Radiology: Radiology Impressions Chest X-Ray 03/15/24 22:15 IMPRESSION: 1. Emphysematous changes. 2. Borderline cardiomegaly. 3. Bibasilar atelectasis versus minimal infiltrate. Laboratory Results WBC 6.93 10^3/uL (3.29-11.43) 03/15/24 22:19 RBC 4.07 10^6/uL (3.85-5.65) 03/15/24 22:19 Hgb 13.60 g/dL (11.27-16.99) 03/15/24 22:19 Hct 41.4 % (36-47) 03/15/24 22:19 MCV 101.7 fl (85-98) H 03/15/24 22:19 MCH 33.4 pg (27-33) H 03/15/24 22:19 MCHC 32.9 g/dL (30-55) 03/15/24 22:19 RDW 15.6 % (12.1-15.1) H 03/15/24 22:19 Plt Count 162 10^3/cmm (157-399) 03/15/24 22:19 MPV 10.0 fL (7.4-10.4) 03/15/24 22:19 Neut % (Auto) 79.3 % 03/15/24 22:19 Lymph % (Auto) 15.9 % 03/15/24 22:19 Ferry % (Auto) 4.0 % 03/15/24 22:19 Eos % (Auto) 0.4 % 03/15/24 22:19 Baso % (Auto) 0.3 % 03/15/24 22:19 Neut # (Auto) 5.49 10^3/uL (1.8-7.7) 03/15/24 22:19 Lymph # (Auto) 1.1 10^3/uL (0.8-4.8) 03/15/24 22:19 [place]erry # (Auto) 0.3 10^3/uL (0.2-0.9) 03/15/24 22:19 Eos # (Auto) 0.0 10^3/uL (0.0-0.8) 03/15/24 22:19 Baso # (Auto) 0.0 10^3/uL (0.0-0.1) 03/15/24 22:19 Nucleated RBC % (auto) 0 % 03/15/24 22: Nucleated RBCs # 0.0 /100WBC 03/15/24 22:19 PT 13.70 SECONDS (12.1-14.9) 03/15/24 22:19 INR 1.02 (0.8-1.2) 03/15/24 22:19 APTT 49.0 SECONDS (23.9-36.7) H 03/15/24 22:19 D-Dimer 0.77 ug/mLFEU (0-0.59) H 03/15/24 22:19 Specimen Type Arterial 03/15/24 22:30 Sample Site Radial, left 03/15/24 22:30 ABG pH 7.31 (7.35-7.45) L 03/15/24 22:30 ABG pCO2 35.0 mmHg (35-45) 03/15/24 22:30 ABG pO2 93.7 mmHg (80.0-100.0) 03/15/24 22:30 ABG HCO3 17.6 mmol/L (22-26) L 03/15/24 22:30 ABG Base Excess -7.9 mmol/L (-2.0-2.0) L 03/15/24 22:30 Zackary Test Pos 03/15/24 22:30 Hematocrit 40.2 % (37-47) 03/15/24 22:30 O2 Delivery Device Nc 03/15/24 22:30 O2 Liters/Min 4.0 % 03/15/24 22:30 Economic History Teacher ID Cl 03/15/24 22:30 Sodium 131 mmol/L (136-145) L 03/15/24 22:19 Potassium 5.3 mmol/L (3.5-5.1) H 03/15/24 22:19 Chloride 94 mmol/L (98-107) L 03/15/24 22:19 Carbon Dioxide 18 mmol/L (22-29) L 03/15/24 22:19 Anion Gap 24.3 (5-19) H 03/15/24 22:19 BUN 41 mg/dL (8-23) H 03/15/24 22:19 Creatinine 2.8 mg/dL (0.5-0.9) H 03/15/24 22:19 GFR Calculation Not Reportable 03/15/24 22:19 Glucose 95 mg/dL (65-115) 03/15/24 22:19 Calculated Osmolality 282 mOsm/kg (285-295) L 03/15/24 22:19 Lactic Acid 2.8 mmol/L (0.5-2.2) H 03/15/24 22:19 Calcium 9.0 mg/dL (8.5-10.5) 03/15/24 22:19 Total Bilirubin 0.5 mg/dL (0.15-1.2) 03/15/24 22:19 AST 22 U/L (0-32) 03/15/24 22:19 ALT 11 U/L (0-33) 03/15/24 22:19 Alkaline Phosphatase 119 U/L (35-105) H 03/15/24 22:19 Troponin T Baseline 83 ng/L (0-10) H 03/15/24 22:19 NT-Pro-B Natriuret Pep 90711 pg/mL (0-450) H 03/15/24 22:19 Total Protein 7.7 g/dL (6.6-8.7) 03/15/24 22:19 Albumin 4.4 g/dL (3.5-5.2) 03/15/24 22:19 Globulin 3.3 g/dL (1.3-4.6) 03/15/24 22:19 All radiology interpretation(s) finalized by discharge Discharge Plan Discharge Patient Disposition: Admitted As Inpatient Clinical Impression: Acute exacerbation of chronic obstructive airways disease, Congestive heart failure, Acute hypoxemic respiratory failure, Acute on chronic renal insufficiency Condition: Stable Coding Level of Care Code 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
[2024-03-15 22:37] LABS: Blood Gas Allen Test Pos; Blood Gas Operator Identificat CL; Blood Gas Sample Type Arterial; Oxygen Device NC
[2024-03-15 22:47] LABS: INR 1.02 (0.8-1.2)
[2024-03-15 22:50] LABS: D Dimer 0.77 ug/mLFEU (0-0.59)
[2024-03-15 22:53] LABS: Lactic Sepsis W/Reflex 2.8 mmol/L (0.5-2.2)
[2024-03-15 22:54] LABS: ABG PH Result 7.31 (7.35-7.45); Arterial Blood Gas Hematocrit 40.2 % (37-47); Base Excess ABG -7.9 mmol/L (-2.0-2.0); Blood Gas Sample Site Radial, left; HCO3 ABG 17.6 mmol/L (22-26); PO2 ABG 93.7 mmHg (80.0-100.0)
[2024-03-15 22:56] LABS: Troponin(5th) Baseline 83 ng/L (0-10)
[2024-03-15 23:00] VITALS: BP 116/90; PULSE 101; RESP 27; O2SAT 95
[2024-03-15 23:05] LABS: Alanine Aminotransferase 11 U/L (0-33); Albumin Level 4.4 g/dL (3.5-5.2); Alkaline Phosphatase 119 U/L (35-105); Anion Gap 24.3 (5-19); Aspartate Amino Transferase 22 U/L (0-32); Blood Urea Nitrogen 41 mg/dL (8-23); Carbon Dioxide 18 mmol/L (22-29); Chloride 94 mmol/L (98-107); Creatinine Clr Calc Pharmacy 17.3437; Globulin 3.3 g/dL (1.3-4.6); Glucose 95 mg/dL (65-115); NT Pro B Type Natriuretic Pept 26541 pg/mL (0-450); Osmolality Calculated 282 mOsm/kg (285-295); Potassium 5.3 mmol/L (3.5-5.1); Sodium 131 mmol/L (136-145); Total Bilirubin 0.5 mg/dL (0.15-1.2); Total Protein 7.7 g/dL (6.6-8.7)
[2024-03-15 23:25] VITALS: PULSE 94; RESP 22; O2SAT 98
[2024-03-15] MEDS: albuterol 2.5 mg/3 mL Neb INHALATION (23:25)
[2024-03-15] MEDS: ipratropium-albuterol 3 mL Neb INHALATION (23:25)
[2024-03-15 23:27] VITALS: PULSE 97; RESP 22; O2SAT 98
[2024-03-15 23:30] VITALS: BP 143/86; PULSE 95; RESP 18; O2SAT 98
[2024-03-15] MEDS: methylPREDNISolone sod succ 125 mg/2 mL INJ IVP (23:35)
[2024-03-15] MEDS: doxycycline 100 MG in sodium chloride 0.9% (plus) 100 ML IV (23:35)
--- NOTE | 2024-03-15 23:57 | P.HP_ITS ---
Providers/Chief Complaint 2 Primary Care Provider: Jeff Banegas DO Chief Complaint: SOB History of Present Illness Susan Resendiz is a 78 year old female history of diabetes mellitus, UTI, COPD, GI bleed in the past presented to the hospital today with complaint of difficulty breathing that has been going on for more than 1 week. She says she cannot walk past 10 feet before getting severely short of breath with that she has to stop and sit down. She says her feet have been swelling up and swelling has been worsening all the way up to her thighs. Denies a history of heart failure or family history of any cardiac issues. In between she says she also gets chest pain sometimes however unable to give me more details about it at this time. She says it comes and goes on its own. She also says she believes she may have a UTI today. She says she has not been urinating and maybe has gone twice since yesterday. She is a former smoker and quit in 1965. She has been feeling nauseated however has not vomited. Also complains of constipation at this time. Does have mild conversational dyspnea. Patient is not on oxygen at home. Chart review: Patient has seen Dr. Zamorano in the past with last visit being in 2020. She has a history of chronic cystitis with chronic pelvic discomfort bladder soreness, recurrent UTIs. She has had cystoscopy performed which showed abnormal bladder with leukoplakia type changes on the dome. No obvious cancer. She has been on Low catheter in the past. ED course: On arrival 128/97, 22, 97, 97.9 saturating 98% on 4 L nasal cannula. She was given DuoNeb which improved her wheezing slightly. BNP 26,000 EKG without acute ischemic changes. White count 6.9 potassium borderline high at 5.3. She was given IV doxycycline, IV Solu-Medrol. Medications/Allergies Home Medications Medication Instructions Recorded Confirmed Last Taken Type Dulera See Rx Instructions .Route .COMPLEX 08/09/20 03/16/24 10/26/20 History sertraline 50 mg tablet 50 mg PO DAILY 03/16/24 03/16/24 Unknown History Allergies Allergy/AdvReac Type Severity Reaction Status Date / Time penicillin G Allergy Severe ALGY-Swell Verified 01/27/21 08:51 Lip/Tongue/Throat Penicillins Allergy Unknown Verified 01/27/21 08:51 PFSH Acute 2 PFSH: Medical History Diabetes mellitus History of recurrent UTI (urinary tract infection) Surgical History H/O tubal ligation History of tonsillectomy and adenoidectomy Family History Mother , AT AGE 91 Stroke Father , AT 99 No problems noted. Social History Smoking and tobacco/nicotine status: never used tobacco/nicotine Alcohol intake: never Marital status: / Current occupational status: retired Vitals/I&O/Wt Last Vital Signs Temp 97.9 F 03/15/24 22:14 Pulse 97 03/15/24 23:27 Resp 22 H 03/15/24 23:27 BP 128/97 03/15/24 22:14 Pulse Ox 98 03/15/24 23:27 O2 Del Method Nasal Cannula 03/15/24 23:27 O2 Flow Rate 4 03/15/24 23:27 Weight last 48 hrs Weight 90.718 kg Physical Exam 2 Narrative: General: Alert oriented x3, patient seen sitting up in bed appearing in mild respiratory distress with conversational dyspnea as she speaks. She is holding up her saturations. Saturating 94% on 4 L nasal cannula at this time. Respiratory rate slightly increased. HEENT: Normocephalic, atraumatic, EOMI, Cardio: Regular rate rhythm, normal S1-S2 Respiratory: Crackles and rhonchi bilateral lower lung morris, mild wheezes diffuse throughout lung morris. GI: Abdomen soft, nontender, nondistended, bowel sounds + Extremities: 2+ edema all the way up to thighs and in dependent areas. Data 03/15/24 22:19 03/15/24 22:19 Micro: Microbiology 03/15/24 22:49 Blood Culture - Preliminary Blood SPECIMEN COLLECTED 03/15/24 22:45 Blood Culture - Preliminary Blood SPECIMEN COLLECTED A&P Assessment and plan (1) Congestive heart failure: (2) Acute on chronic renal insufficiency: (3) Leukoplakia of bladder: (4) History of recurrent UTI (urinary tract infection): (5) COPD (chronic obstructive pulmonary disease): (6) Acute exacerbation of chronic obstructive airways disease: (7) Acute hypoxemic respiratory failure: Plan #Shortness of breath secondary to new onset heart failure #Acute kidney injury on CKD, most likely cardiorenal #Hypokalemia #Hyponatremia, most likely secondary to hypervolemia #COPD exacerbation, not oxygen dependent #History of recurrent UTIs, urinary retention, requiring Low catheter, bladder leukoplakia, #History of hip fracture in the past ? Has been having shortness of breath, difficulty breathing and shortness of breath on exertion with bilateral lower extremity edema greater than 1 week. No significant cardiac history and patient was per family. BNP 26,000 today, initially lactic acid elevated 2.8 which has now normalized. Patient having mild respiratory distress requiring 4 L nasal cannula at this time. D-dimer is elevated but age-adjusted is okay. Chest x-ray shows with basilar atelectasis versus minimal infiltrate. I will check CT chest without contrast to rule out pneumonia. ? Will place on levofloxacin 500 daily for empiric coverage. ? Placed on Lasix 40 IV twice daily. Will give 60 mg Lasix stat IV x 1 now - Continue on solumedrol 40 q12h ? Avoid IV fluids for now. ? Placed on DuoNeb every 6 hours [id number] ? Placed on BiPAP, ? Check echocardiogram ? Check troponin CT scan serial EKGs ? Sputum Gram stain culture, blood cultures ? Check urinalysis and subsequently urine culture if warranted ? Placed on Low catheter, strict input output ? Sodium 131 at this time. I do expect this to improve with diuresis. Patient hypervolemic. Will check urine sodium, urine osmolality ? Potassium 5.3 at this time. Giving Lasix now. Will recheck at 4 AM. ? Anion gap elevated most likely due to lactic acidosis I do expect this to improve as well. ? Creatinine 2.8 at this time. Baseline 2.1-2.2. ZACK most likely secondary to cardiorenal syndrome due to fluid overload. Continue diuresis ? Initial troponin 83, delta troponin at 2-hour -4.81. She did complain of chest pain however not having chest pain at this time. Most likely demand ischemia. ? Patient would like Salma Rivero contacted in case she is incapacitated to make medical decisions. That is her friend. She states all of her sons live in [place]. ? Discussed with patient regarding BiPAP use however she states she is claustrophobic and does not want the mask to cover her face. I explained to her the mask will only go over her nose and mouth which she is okay with for now. I also told her that if she is unable to tolerate BiPAP despite anxiety medication and if she continues to have respiratory distress or does not start to feel better after Lasix in case of worsening will have to intubate. She is okay with that. I do not believe that will be required based on patient's current status. Full code DVT prophylaxis: Heparin SQ twice daily Attestations 2 Medical Necessity Statement*: Greater than 2 midnight stay for management of new onset heart failure Diagnoses Congestive heart failure I50.9 Acute on chronic renal insufficiency N28.9; N18.9 Leukoplakia of bladder N32.89 History of recurrent UTI (urinary tract infection) Z87.440 COPD (chronic obstructive pulmonary disease) J44.9 Acute exacerbation of chronic obstructive airways disease J44.1 Acute hypoxemic respiratory failure J96.01
[2024-03-16] VITALS (15 sets, daily range): BP systolic 99–146; BP diastolic 48–96; PULSE 83–105; RESP 12–31; TEMP 36.6–37.1; O2SAT 90–98
--- NOTE | 2024-03-16 00:01 | USCV_ITS ---
Susan Resendiz Age: 78 Gender: F : 1945 Exam Date: 03/16/2024 07:01 Ordering Phys: Barbara Banda MD Technologist: Silvio Ronquillo Exam Location: [facility] Indication: HF BP: 128 / 97 HR: 98 Rhythm: Sinus Technical Quality: Adequate MEASUREMENTS (Male / Female) Normal Values 2D ECHO LV Diastolic Diameter PLAX 3.5 cm 4.2 - 5.9 / 3.9 - 5.3 cm IVS Diastolic Thickness 1.0 cm 0.6 - 1.0 / 0.6 - 0.9 cm IVS Systolic Thickness 1.2 cm LVPW Diastolic Thickness 1.1 cm 0.6 - 1.0 / 0.6 - 0.9 cm LVPW Systolic Thickness 2.1 cm LVOT Diameter 2.0 cm LV Ejection Fraction 2D Teich 86.6 % LV Ejection Fraction MOD 4C 86.3 % LV Ejection Fraction MOD 2C 61.0 % LV Ejection Fraction 2C AL 59.7 % LA Diameter 3.6 cm RA Systolic Volume 4C AL 137.1 ml RA Systolic Volume 4C MOD 143.3 ml LA Sys Volume AL 33.9 cm cubed LA Sys Volume Index AL 17.3 cm cubed/m squared Aorta at Sinotubular Diameter 2.1 cm IVC Diameter 2.2 cm M-MODE LA Ao Ratio MM 1.2 AV Cusp Separation MM 1.5 cm DOPPLER AV Peak Velocity 130.0 cm/s LVOT Peak Velocity 86.0 cm/s AV Area Cont Eq vti 2.2 cm squared AV Area Cont Eq pk 2.1 cm squared MV Peak Velocity 120.0 cm/s MV Area PHT 8.1 cm squared Mitral E to A Ratio 0.8 TR Peak Velocity 408.0 cm/s TR Peak Gradient 66.6 mmHg TR Mean Velocity 299.0 cm/s TR Mean Gradient 40.0 mmHg TR Velocity Time Integral 125.5 cm PV Peak Velocity 124.0 cm/s RV Ejection Time 0.3 s FINDINGS Left Ventricle Normal left ventricular size, systolic function and wall thickness, with no regional wall motion abnormalities. Left ventricular ejection fraction is estimated at 65%. Right Ventricle Dilated right ventricle. Preserved right ventricle systolic function. Right Atrium Dilated right atrium. Left Atrium Normal left atrial size. Mitral Valve Mildly thickened mitral valve. No mitral valve stenosis. No mitral valve regurgitation. Aortic Valve Thickened aortic valve. No aortic valve stenosis. Tricuspid Valve Structurally normal tricuspid valve. Mild to moderate tricuspid regurgitation. Severely elevated TR gradient (60+ mmHg). Severely elevated pulmonary pressure. Estimated pulmonary artery systolic pressure is around 70 mmHg Pulmonic Valve Pulmonic valve not well visualized. Pericardium No pericardial effusion. Aorta Normal size aortic root and proximal ascending aorta. IVC Dilated IVC. CONCLUSIONS Normal LV systolic function. Estimated LVEF 65%. Dilated right ventricle with preserved RV systolic function. Dilated right atrium, mild to moderate TR Markedly elevated RV and pulmonary artery systolic pressures (70 +mmHg), Severe pulmonary hypertension. Elan Thorne MD (Electronically Signed) Final Date: 16 March 2024 16:05 S
[2024-03-16 00:16] LABS: Reflex Lactate Order REFLEX LACTIC ORDERD
[2024-03-16 00:41] LABS: Magnesium 2.3 mg/dL (1.7-2.3)
[2024-03-16 00:52] LABS: Procalcitonin 0.21 ng/mL (0-0.5); Thyroid Stimulating Hormone 1.81 uIU/mL (0.27-4.20)
[2024-03-16 00:55] LABS: Troponin 5 2HR 78.19 ng/L (0-10)
[2024-03-16 00:56] LABS: Lactic Sepsis W/Reflex 1.1 mmol/L (0.5-2.2)
[2024-03-16 01:06] LABS: Troponin 5 2HR Delta -4.81 ABS# (0-10)
[2024-03-16] MEDS: methylPREDNISolone sod succ 40 mg/mL INJ IVP ×3 (01:55→23:21)
--- NOTE | 2024-03-16 02:00 | CTR_ITS ---
PROCEDURE INFORMATION: Exam: CT Chest Without Contrast; Diagnostic Exam date and time: 03/16/2024 8:44 AM Age: 78 years old Clinical indication: Shortness of breath; Additional info: R/O pneumonia TECHNIQUE: Imaging protocol: Diagnostic computed tomography of the chest without contrast. Radiation optimization: All CT scans at this facility use at least one of these dose optimization techniques: automated exposure control; mA and/or kV adjustment per patient size (includes targeted exams where dose is matched to clinical indication); or iterative reconstruction. COMPARISON: CT chest con [id number] 08/09/2020 3:38 AM RADIATION DOSE METRICS: Total DLP (mGy-cm): 509.25 FINDINGS: Lungs: There are changes of emphysema involving the lungs diffusely. No consolidated infiltrates are appreciated. There is minimal atelectasis at the lung bases. Pleural spaces: Unremarkable. No pneumothorax. No pleural effusion. Heart: Unremarkable. No cardiomegaly. No pericardial effusion. Lymph nodes: There are a few small as well as borderline enlarged mediastinal lymph nodes unchanged when compared to prior exam. Vasculature: The aorta is normal in caliber. There is calcified plaque involving the aorta and coronary vessels. There is an aberrant right subclavian artery. Gallbladder and biliary ducts: There are gallstones within a partially imaged gallbladder. There is a partially imaged atrophic right kidney. Bones/joints: Unremarkable. No acute fracture. Soft tissues: Unremarkable. CT/CT chest con [id number] IMPRESSION: 1. Changes of emphysema with minimal atelectasis at the lung bases. 2. Cholelithiasis. Please note that the gallbladder is only partially imaged. 3. Partially imaged atrophic right kidney.
[2024-03-16] MEDS: heparin 5,000 unit/mL INJ 1 mL 5000 UNIT SUBCUT ×3 (02:01→23:27)
[2024-03-16] MEDS: FUROsemide 10 mg/mL SDV 10mL 60 MG IVP (02:21)
[2024-03-16] MEDS: levofloxacin-dextrose 5 % 500 MG/100 ML PREMIX 100 MG IV (02:30)
[2024-03-16 02:31] LABS: Add Urine Microscopic? YES; Bilirubin Urine Neg (Negative); Blood Urine 2+ (Negative); Glucose Urine UA Norm (Normal); Ketones Urine 1+ (Negative); Leukocyte Esterase Urine 2+ (Negative); Nitrate Urine Negative (Negative); Protein Urine 1+ (Negative); Specific Gravity, Urine 1.005 (1.005-1.030); Urine Appearance Cloudy (CLEAR); Urine Color Yellow (Yellow); Urobilinogen Urine Neg (Negative); pH Urine 7 (5-7)
[2024-03-16 02:32] LABS: Add Urine Culture? Yes; Bacteria Urine 3+ /hpf; Hyaline Casts Urine 0-4 /lpf; Mucus Urine 1+ /hpf; WBC Urine 15-25 /hpf (0-5)
[2024-03-16 02:38] LABS: Urine Random Sodium 46 mmol/L
[2024-03-16 04:28] LABS: C Reactive Protein 9.8 mg/L (0.0-4.9)
[2024-03-16 04:29] LABS: Lactic Acid level (Lactate) 1.2 mmol/L (0.5-2.2)
[2024-03-16] MEDS: FUROsemide 10 mg/mL SDV 4mL 40 MG IVP ×2 (05:37→17:23)
[2024-03-16] MEDS: ipratropium-albuterol 3 mL Neb INHALATION ×4 (07:53→20:00)
[2024-03-16] MEDS: pantoprazole DR 40 mg Tablet PO ×2 (09:12→17:23)
--- NOTE | 2024-03-16 10:49 | PC.PT ---
PT evaluation was attempted 03/16/24 at 10:25. Patient had been for CT this am, but was agreeable to attempt PT eval. O2 sats were at 92 when patient transitioned to EOB from elevated HOB position. Sats dropped to 84 and then machine was unable to detect. Therapist instructed pt. to perform pursed lip breathing to improve O2 sats. Once sats returned to 90, therapist instructed pt to return to previous position in bed. Sats returned to 94 prior to therapist leaving room with pt having access to call light and bedside table. No evaluation was performed due to O2 sats dropping significantly with any exertion.
--- NOTE | 2024-03-16 15:42 | P.PN_ITS ---
Subjective 2 Subjective: Continues to feel SOB. Reveied past history- patient has a longstanding h/o COPD, used to be on 4lpm supplemental 02 per records from 2019. States that thereafter she was able to be weaned off from 02, however I am uncertain that this is accurate information. states that her SOB has been wotrsening over several weeks now, made much worse over the past 1-2 weeks. Medications: Reviewed: Yes Vitals/I&O/Wt Last Vital Signs Temp 98.2 F 03/16/24 11:54 Pulse 97 03/16/24 11:54 Resp 19 H 03/16/24 11:54 BP 99/59 03/16/24 11:54 Pulse Ox 93 03/16/24 11:54 O2 Del Method Nasal Cannula 03/16/24 11:54 O2 Flow Rate 3 03/16/24 11:40 FiO2 40 03/16/24 02:47 03/16/24 03/16/24 03/16/24 06:59 14:59 22:59 Intake Total 400 / 400 Output Total 500 / 500 525 / 525 Balance -100 / -100 -525 / -525 Weight last 48 hrs Weight 84.822 kg Weight 90.718 kg Weight 90.718 kg Physical Exam 2 Narrative: General: tachypneic in conversation , AO x3 HEENT: PERRLA, pupils bilaterally equal and reactive, pallors not present Chest: B/L wheezing to auscultation, right worse than left. CVS: S1-S2 regular, no murmurs, no tachycardia, no gallops, no rubs Abdomen: Soft, nontender, no organomegaly, bowel sounds present Neuro: No focal deficits, no facial deformity, AO x3, power 5/5 in all limbs Urinary Catheter Management: Low: Cath Placed During This Visit: yes Reason for Continuing Indwelling Catheter: Other Urinary Catheter Date of Insertion: 03/16/24 Urinary Catheter Time of Insertion: 02:59 Data 03/15/24 22:19 03/15/24 22:19 Micro: Microbiology 03/16/24 01:00 Bacterial Antigens - Final Urine,Clean Catch 03/15/24 22:49 Blood Culture - Preliminary Blood SPECIMEN COLLECTED 03/15/24 22:45 Blood Culture - Preliminary Blood SPECIMEN COLLECTED A&P Assessment and plan (1) Congestive heart failure: (2) Acute on chronic renal insufficiency: (3) Leukoplakia of bladder: (4) History of recurrent UTI (urinary tract infection): (5) COPD (chronic obstructive pulmonary disease): (6) Acute exacerbation of chronic obstructive airways disease: (7) Acute hypoxemic respiratory failure: Plan #Shortness of breath secondary to new onset heart failure #Acute kidney injury on CKD, most likely cardiorenal #Hypokalemia #Hyponatremia, most likely secondary to hypervolemia #COPD exacerbation, not oxygen dependent #History of recurrent UTIs, urinary retention, requiring Low catheter, bladder leukoplakia, #History of hip fracture in the past ? Has been having shortness of breath, difficulty breathing and shortness of breath on exertion with bilateral lower extremity edema greater than 1 week. No significant cardiac history and patient was per family. BNP 26,000 today, initially lactic acid elevated 2.8 which has now normalized. Patient having mild respiratory distress requiring 4 L nasal cannula at this time. D-dimer is elevated but age-adjusted is okay. Chest x-ray shows with basilar atelectasis versus minimal infiltrate. I will check CT chest without contrast to rule out pneumonia. ? Will place on levofloxacin 500 daily for empiric coverage. ? Placed on Lasix 40 IV twice daily. Will give 60 mg Lasix stat IV x 1 now - Continue on solumedrol 40 q12h ? Avoid IV fluids for now. ? Placed on DuoNeb every 6 hours [id number] ? Placed on BiPAP, ? Check echocardiogram ? Check troponin CT scan serial EKGs ? Sputum Gram stain culture, blood cultures ? Check urinalysis and subsequently urine culture if warranted ? Placed on Low catheter, strict input output ? Sodium 131 at this time. I do expect this to improve with diuresis. Patient hypervolemic. Will check urine sodium, urine osmolality ? Potassium 5.3 at this time. Giving Lasix now. Will recheck at 4 AM. ? Anion gap elevated most likely due to lactic acidosis I do expect this to improve as well. ? Creatinine 2.8 at this time. Baseline 2.1-2.2. ZACK most likely secondary to cardiorenal syndrome due to fluid overload. Continue diuresis ? Initial troponin 83, delta troponin at 2-hour -4.81. She did complain of chest pain however not having chest pain at this time. Most likely demand ischemia. ? Patient would like Salma Rivero contacted in case she is incapacitated to make medical decisions. That is her friend. She states all of her sons live in [place]. ? Discussed with patient regarding BiPAP use however she states she is claustrophobic and does not want the mask to cover her face. I explained to her the mask will only go over her nose and mouth which she is okay with for now. I also told her that if she is unable to tolerate BiPAP despite anxiety medication and if she continues to have respiratory distress or does not start to feel better after Lasix in case of worsening will have to intubate. She is okay with that. I do not believe that will be required based on patient's current status. Full code DVT prophylaxis: Heparin SQ twice daily March 15, 2024: Pending echocardiogram, continue iv diuresis. Clincal picture compatible with acute on chronic COPD excarebation and possible heart failure. Add budesonide inhalation. Continue I/O measurements , monitor renal function for worsening. contineu iv steroids. PE on differential however cannot perform CTA. D dimer 0.77, lower than prior, less likely PE. will check LE duplex Attestations 2 Medical Necessity Statement*: needs iv diuresis, iv steroids, pending echocardiogram Coding Level of Care Code Acute Code for Chg Fwd High MDM includes number and complexity of problems actively addressed during encounter, amount and/or complexity of data reviewed/ordered and described risk of complication, morbidity or mortality of management as documented Diagnoses Congestive heart failure I50.9 Acute on chronic renal insufficiency N28.9; N18.9 Leukoplakia of bladder N32.89 History of recurrent UTI (urinary tract infection) Z87.440 COPD (chronic obstructive pulmonary disease) J44.9 Acute exacerbation of chronic obstructive airways disease J44.1 Acute hypoxemic respiratory failure J96.01
[2024-03-17] VITALS (16 sets, daily range): BP systolic 102–124; BP diastolic 52–77; PULSE 83–98; RESP 17–28; TEMP 36.4–37; O2SAT 92–99
[2024-03-17] MEDS: FUROsemide 10 mg/mL SDV 4mL 40 MG IVP (05:29)
[2024-03-17 05:42] LABS: Hematocrit 34.8 % (36-47); Lymphocytes # 0.3 10^3/uL (0.8-4.8); Lymphocytes % 5.1 %; Mean Corpuscular Hemoglobin 33.5 pg (27-33); Mean Corpuscular Volume 101.5 fl (85-98); Mean Platelet Volume 9.7 fL (7.4-10.4); Monocytes # 0.1 10^3/uL (0.2-0.9); Monocytes % 1.9 %; Neutrophils # 4.87 10^3/uL (1.8-7.7); Neutrophils % 92.4 %; Nucleated Red Blood Cells % 0 %; Platelet Count 129 10^3/cmm (157-399); Red Blood Count 3.43 10^6/uL (3.85-5.65); Red Cell Distribution Width 15.6 % (12.1-15.1); White Blood Count 5.27 10^3/uL (3.29-11.43)
--- NOTE | 2024-03-17 06:00 | USR_ITS ---
PROCEDURE INFORMATION: Exam: US Duplex Lower Extremity Veins, Bilateral Exam date and time: 03/17/2024 6:57 AM Age: 78 years old Clinical indication: Screening exam; Assess for dvt TECHNIQUE: Imaging protocol: Real-time duplex ultrasound of the bilateral extremities with 2-D cox scale, color Doppler flow and spectral waveform analysis including responses to compression and other maneuvers (when performed) with image documentation. Complete exam focused on the lower extremity veins. COMPARISON: US renal BI* [id number] 01/25/2018 9:10 AM FINDINGS: Right deep veins: Unremarkable. The common femoral, femoral, proximal profunda femoral and popliteal veins are patent without thrombus. Normal Doppler waveforms. Normal compressibility and/or augmentation response. Left deep veins: Nonocclusive thrombus is noted within the distal left superficial femoral vein and popliteal vein. Otherwise, there is normal flow, compressibility, and augmentation involving the deep venous system of the left lower extremity. Superficial veins: Greater saphenous veins at the saphenofemoral junctions are patent bilaterally without thrombus. Soft tissues: Unremarkable. US/[place] [id number] IMPRESSION: Nonocclusive thrombus distal left superficial femoral vein and popliteal vein.
[2024-03-17 06:04] LABS: Alanine Aminotransferase 9 U/L (0-33); Albumin Level 3.9 g/dL (3.5-5.2); Alkaline Phosphatase 86 U/L (35-105); Anion Gap 17.1 (5-19); Aspartate Amino Transferase 20 U/L (0-32); Blood Urea Nitrogen 62 mg/dL (8-23); Calcium 8.4 mg/dL (8.5-10.5); Carbon Dioxide 22 mmol/L (22-29); Chloride 94 mmol/L (98-107); Creatinine Clr Calc Pharmacy 12.6943; Globulin 3.3 g/dL (1.3-4.6); Glucose 194 mg/dL (65-115); Osmolality Calculated 287 mOsm/kg (285-295); Potassium 6.1 mmol/L (3.5-5.1); Sodium 127 mmol/L (136-145); Total Bilirubin 0.3 mg/dL (0.15-1.2); Total Protein 7.2 g/dL (6.6-8.7)
[2024-03-17] MEDS: budesonide 0.5 mg/2 mL Neb INHALATION ×2 (07:52→21:09)
[2024-03-17] MEDS: ipratropium-albuterol 3 mL Neb INHALATION ×4 (07:52→21:09)
[2024-03-17] MEDS: pantoprazole DR 40 mg Tablet PO ×2 (08:25→20:32)
[2024-03-17] MEDS: sertraline 50 mg Tablet PO (08:25)
[2024-03-17] MEDS: heparin 5,000 unit/mL INJ 1 mL IV (12:13)
[2024-03-17] MEDS: methylPREDNISolone sod succ 40 mg/mL INJ IVP ×2 (12:13→20:33)
[2024-03-17] MEDS: heparin drip 25,000 UNIT/500 ML PREMIX 24 UNIT IV (12:26)
--- NOTE | 2024-03-17 18:53 | P.PN_ITS ---
Subjective 2 Subjective: States that she feels slightly better today. Severe pulmonary hypertension encountered on echocardiogram. Lower extremity Doppler positive for DVT. Presumptively also has PE. Started on anticoagulation with heparin. Hyperkalemia today. Kidney function worsening. Medications: Reviewed: Yes Vitals/I&O/Wt Last Vital Signs Temp 97.8 F 03/17/24 16:00 Pulse 90 03/17/24 16:00 Resp 28 H 03/17/24 16:00 BP 119/59 03/17/24 16:00 Pulse Ox 96 03/17/24 16:00 O2 Del Method Nasal Cannula 03/17/24 16:00 O2 Flow Rate 3.5 03/17/24 15:20 FiO2 40 03/16/24 02:47 03/17/24 03/17/24 03/17/24 06:59 14:59 22:59 Intake Total 200 / 840 360 / 360 Output Total 300 / 1575 650 / 650 Balance -100 / -735 360 / 360 -650 / -290 Weight last 48 hrs Weight 85.275 kg Weight 84.822 kg Weight 90.718 kg Weight 90.718 kg Physical Exam 2 Narrative: General: tachypneic in conversation , AO x3 HEENT: PERRLA, pupils bilaterally equal and reactive, pallors not present Chest: B/L wheezing to auscultation persisting CVS: S1-S2 regular, no murmurs, no tachycardia, no gallops, no rubs Abdomen: Soft, nontender, no organomegaly, bowel sounds present Neuro: No focal deficits, no facial deformity, AO x3, power 5/5 in all limbs EXT: B/L LE edema 3+ Urinary Catheter Management: Low: Cath Placed During This Visit: yes Reason for Continuing Indwelling Catheter: Accurate Measurement of Urinary Output in Critically Ill Patients Urinary Catheter Date of Insertion: 03/16/24 Urinary Catheter Time of Insertion: 02:59 Data 03/17/24 05:17 03/17/24 05:17 Micro: Microbiology 03/16/24 01:00 Urine Culture - Preliminary Urine,Clean Catch 03/15/24 22:49 Blood Culture - Preliminary Blood NEGATIVE TO DATE 03/15/24 22:45 Blood Culture - Preliminary Blood NEGATIVE TO DATE A&P Assessment and plan (1) Congestive heart failure: (2) Acute on chronic renal insufficiency: (3) Leukoplakia of bladder: (4) History of recurrent UTI (urinary tract infection): (5) COPD (chronic obstructive pulmonary disease): (6) Acute exacerbation of chronic obstructive airways disease: (7) Acute hypoxemic respiratory failure: Plan #Shortness of breath secondary to new onset heart failure #Acute kidney injury on CKD, most likely cardiorenal #Hypokalemia #Hyponatremia, most likely secondary to hypervolemia #COPD exacerbation, not oxygen dependent #History of recurrent UTIs, urinary retention, requiring Low catheter, bladder leukoplakia, #History of hip fracture in the past ? Has been having shortness of breath, difficulty breathing and shortness of breath on exertion with bilateral lower extremity edema greater than 1 week. No significant cardiac history and patient was per family. BNP 26,000 today, initially lactic acid elevated 2.8 which has now normalized. Patient having mild respiratory distress requiring 4 L nasal cannula at this time. D-dimer is elevated but age-adjusted is okay. Chest x-ray shows with basilar atelectasis versus minimal infiltrate. I will check CT chest without contrast to rule out pneumonia. ? Will place on levofloxacin 500 daily for empiric coverage. ? Placed on Lasix 40 IV twice daily. Will give 60 mg Lasix stat IV x 1 now - Continue on solumedrol 40 q12h ? Avoid IV fluids for now. ? Placed on DuoNeb every 6 hours [id number] ? Placed on BiPAP, ? Check echocardiogram ? Check troponin CT scan serial EKGs ? Sputum Gram stain culture, blood cultures ? Check urinalysis and subsequently urine culture if warranted ? Placed on Low catheter, strict input output ? Sodium 131 at this time. I do expect this to improve with diuresis. Patient hypervolemic. Will check urine sodium, urine osmolality ? Potassium 5.3 at this time. Giving Lasix now. Will recheck at 4 AM. ? Anion gap elevated most likely due to lactic acidosis I do expect this to improve as well. ? Creatinine 2.8 at this time. Baseline 2.1-2.2. ZACK most likely secondary to cardiorenal syndrome due to fluid overload. Continue diuresis ? Initial troponin 83, delta troponin at 2-hour -4.81. She did complain of chest pain however not having chest pain at this time. Most likely demand ischemia. ? Patient would like Salma Rivero contacted in case she is incapacitated to make medical decisions. That is her friend. She states all of her sons live in [place]. ? Discussed with patient regarding BiPAP use however she states she is claustrophobic and does not want the mask to cover her face. I explained to her the mask will only go over her nose and mouth which she is okay with for now. I also told her that if she is unable to tolerate BiPAP despite anxiety medication and if she continues to have respiratory distress or does not start to feel better after Lasix in case of worsening will have to intubate. She is okay with that. I do not believe that will be required based on patient's current status. Full code DVT prophylaxis: Heparin SQ twice daily March 16, 2024: Pending echocardiogram, continue iv diuresis. Clincal picture compatible with acute on chronic COPD excarebation and possible heart failure. Add budesonide inhalation. Continue I/O measurements , monitor renal function for worsening. contineu iv steroids. PE on differential however cannot perform CTA. D dimer 0.77, lower than prior, less likely PE. will check LE duplex March 17, 2024. Echocardiogram returned with evidence of severe pulmonary hypertension with PASP of 70 mmHg. Dilated right ventricle was encountered.Together with evidence of severe pulmonary hypertension and elevated troponins without significant delta, there was concern for PE clinically. However was unable to get a CTA due to patient's ZACK on CKD. Baseline creatinine is trending up today to 3.7. Lower extremity Doppler was performed instead which did show nonocclusive thrombus of the distal left superficial femoral vein and popliteal vein. Presumptively patient also presumed to have a pulmonary embolism given her current respiratory status. Started on heparin drip with this information. Holding further doses of Lasix today for worsening ZACK on CKD. Noted hyperkalemia today. Administer insulin / dextrose and Kayexalate. Attestations 2 Medical Necessity Statement*: Continued admission for heparin anticoagulation, IV diuresis, hyperkalemia management Coding Level of Care Code Acute Code for Chg Fwd High MDM includes number and complexity of problems actively addressed during encounter, amount and/or complexity of data reviewed/ordered and described risk of complication, morbidity or mortality of management as documented Diagnoses Congestive heart failure I50.9 Acute on chronic renal insufficiency N28.9; N18.9 Leukoplakia of bladder N32.89 History of recurrent UTI (urinary tract infection) Z87.440 COPD (chronic obstructive pulmonary disease) J44.9 Acute exacerbation of chronic obstructive airways disease J44.1 Acute hypoxemic respiratory failure J96.01
[2024-03-17 20:30] LABS: Alanine Aminotransferase 11 U/L (0-33); Albumin Level 3.9 g/dL (3.5-5.2); Alkaline Phosphatase 81 U/L (35-105); Aspartate Amino Transferase 23 U/L (0-32); Blood Urea Nitrogen 65 mg/dL (8-23); Calcium 8.4 mg/dL (8.5-10.5); Carbon Dioxide 19 mmol/L (22-29); Chloride 91 mmol/L (98-107); Creatinine Clr Calc Pharmacy 13.8144; Globulin 3.2 g/dL (1.3-4.6); Glucose 264 mg/dL (65-115); Osmolality Calculated 284 mOsm/kg (285-295); Sodium 123 mmol/L (136-145); Total Bilirubin 0.2 mg/dL (0.15-1.2); Total Protein 7.1 g/dL (6.6-8.7)
[2024-03-17] MEDS: sodium polystyrene sulfonate 15 gm/60 mL Btl PO (20:30)
[2024-03-17] MEDS: calcium gluconate 0.9% NaCL 1 GM/50 ML PREMIX IV (20:31)
[2024-03-17] MEDS: insulin regular-human 10 UNIT in SYRINGE 1 EACH IVP (20:42)
[2024-03-17 20:54] LABS: Partial Thromboplastin Time > 250.0 SECONDS (23.9-36.7)
[2024-03-17] MEDS: dextrose 10% 125 ML 750 ML IV (20:57)
[2024-03-18] VITALS (15 sets, daily range): BP systolic 117–131; BP diastolic 61–69; PULSE 86–106; RESP 14–24; TEMP 36.4–36.9; O2SAT 89–99
[2024-03-18 00:36] LABS: Potassium 5.6 mmol/L (3.5-5.1)
[2024-03-18] MEDS: methylPREDNISolone sod succ 40 mg/mL INJ IVP ×2 (02:55→12:15)
[2024-03-18] MEDS: ipratropium-albuterol 3 mL Neb INHALATION ×4 (07:32→19:46)
[2024-03-18] MEDS: budesonide 0.5 mg/2 mL Neb INHALATION ×2 (07:32→19:45)
[2024-03-18] MEDS: pantoprazole DR 40 mg Tablet PO ×2 (09:06→17:26)
[2024-03-18] MEDS: sertraline 50 mg Tablet PO (09:07)
[2024-03-18 09:34] LABS: Partial Thromboplastin Time 106.4 SECONDS (23.9-36.7)
--- NOTE | 2024-03-18 10:22 | PC.SOCIAL ---
IMM Update pg 2 of IMM updated and reviewed w/ patient. Copy provided and copy dated, initialed and placed in chart.
[2024-03-18] MEDS: acetaminophen 325 mg Tablet 650 MG PO (12:19)
--- NOTE | 2024-03-18 12:30 | P.PN_ITS ---
Subjective 2 Subjective: Patient was extremely hypoxic with PT, she had to be returned quickly back to her room on her bed on 4 L Patient was told about pulmonary hypertension She will need pulmonary hypertension outpatient clinic I have encouraged her to think about correction placement if she is able to participate with PT Patient is dyspneic, not able to finish sentences without taking a break Lives alone, Vitals/I&O/Wt Last Vital Signs Temp 97.8 F 03/18/24 08:00 Pulse 99 03/18/24 11:38 Resp 20 H 03/18/24 11:32 BP 131/64 03/18/24 08:00 Pulse Ox 91 03/18/24 11:32 O2 Del Method Nasal Cannula 03/18/24 11:32 O2 Flow Rate 4 03/18/24 11:32 FiO2 40 03/16/24 02:47 03/17/24 03/18/24 03/18/24 22:59 06:59 14:59 Intake Total 380.7 / 740.7 0 / 740.7 147 / 147 Output Total 1000 / 1000 800 / 1800 Balance -619.3 / -259.3 -800 / -1059.3 147 / 147 Weight last 48 hrs Weight 85.82 kg Weight 85.275 kg Physical Exam 2 Narrative: Patient is awake and alert Poor attention span Currently on 4 L Hemodynamically stable Lymphedema Lower extremity edema Low catheter in place Awake and alert Able to answer my question NIH 0 Nonfocal S1, S2 Urinary Catheter Management: Low: Cath Placed During This Visit: yes Reason for Continuing Indwelling Catheter: Other Urinary Catheter Date of Insertion: 03/16/24 Urinary Catheter Time of Insertion: 02:59 Data 03/17/24 05:17 03/18/24 00:10 Micro: Microbiology 03/16/24 01:00 Urine Culture - Final Urine,Clean Catch A&P Assessment and plan (1) Congestive heart failure: (2) Acute on chronic renal insufficiency: (3) Leukoplakia of bladder: (4) History of recurrent UTI (urinary tract infection): (5) COPD (chronic obstructive pulmonary disease): (6) Acute exacerbation of chronic obstructive airways disease: (7) Acute hypoxemic respiratory failure: Plan Dyspnea on exertion Dyspnea on minimal exertion Currently on 4 L Diastolic CHF exacerbation with pulmonary hypertension which is severe in intensity Patient will need outpatient pulmonary hypertension clinic follow-up Lower extremity DVT currently on heparin drip Acute on chronic kidney disease Hyperkalemia improving: Give 1 dose of Kayexalate today Cardiorenal which got worse with overdiuresis, diuresis on hold I will keep diuretics on hold for 1 more day Mild acidosis noted Cr At 3.4 Acute COPD exacerbation Pulm hemorrhage Currently on 4 L DVT prophylaxis currently covered with heparin Attestations 2 Medical Necessity Statement*: Continue medical management Diagnoses Congestive heart failure I50.9 Acute on chronic renal insufficiency N28.9; N18.9 Leukoplakia of bladder N32.89 History of recurrent UTI (urinary tract infection) Z87.440 COPD (chronic obstructive pulmonary disease) J44.9 Acute exacerbation of chronic obstructive airways disease J44.1 Acute hypoxemic respiratory failure J96.01
[2024-03-18] MEDS: sodium polystyrene sulfonate 15 gm/60 mL Btl PO (13:51)
[2024-03-18 15:10] LABS: Hematocrit 36.7 % (36-47); Lymphocytes # 0.2 10^3/uL (0.8-4.8); Lymphocytes % 2.7 %; Mean Corpuscular HGB Conc 32.4 g/dL (30-55); Mean Corpuscular Hemoglobin 33.6 pg (27-33); Mean Corpuscular Volume 103.7 fl (85-98); Mean Platelet Volume 9.5 fL (7.4-10.4); Monocytes # 0.2 10^3/uL (0.2-0.9); Monocytes % 2.8 %; Neutrophils % 93.7 %; Nucleated Red Blood Cells % 0 %; Platelet Count 113 10^3/cmm (157-399); Red Blood Count 3.54 10^6/uL (3.85-5.65); Red Cell Distribution Width 15.4 % (12.1-15.1); White Blood Count 7.79 10^3/uL (3.29-11.43)
[2024-03-18 15:30] LABS: Alanine Aminotransferase 13 U/L (0-33); Albumin Level 4.1 g/dL (3.5-5.2); Alkaline Phosphatase 85 U/L (35-105); Anion Gap 18.3 (5-19); Aspartate Amino Transferase 27 U/L (0-32); Blood Urea Nitrogen 67 mg/dL (8-23); Calcium 8.6 mg/dL (8.5-10.5); Carbon Dioxide 21 mmol/L (22-29); Chloride 90 mmol/L (98-107); Creatinine Clr Calc Pharmacy 14.2813; Glucose 289 mg/dL (65-115); Osmolality Calculated 288 mOsm/kg (285-295); Potassium 5.3 mmol/L (3.5-5.1); Sodium 124 mmol/L (136-145); Total Bilirubin 0.4 mg/dL (0.15-1.2); Total Protein 7.1 g/dL (6.6-8.7)
[2024-03-18 15:59] LABS: Partial Thromboplastin Time 100.3 SECONDS (23.9-36.7)
[2024-03-18 16:44] LABS: Osmolality Serum 293 mOsm/kg (278-305)
[2024-03-18 22:45] LABS: Partial Thromboplastin Time 48.5 SECONDS (23.9-36.7)
[2024-03-19] VITALS (13 sets, daily range): BP systolic 114–132; BP diastolic 59–81; PULSE 89–104; RESP 14–22; TEMP 36.4–36.8; O2SAT 84–99; BMI 35.2
[2024-03-19] MEDS: heparin drip 25,000 UNIT/500 ML PREMIX 12 UNIT IV (00:02)
[2024-03-19] MEDS: heparin 5,000 unit/mL INJ 1 mL IV (00:21)
[2024-03-19 05:36] LABS: Partial Thromboplastin Time 80.6 SECONDS (23.9-36.7)
[2024-03-19 05:59] LABS: Hematocrit 34.9 % (36-47); Lymphocytes # 0.3 10^3/uL (0.8-4.8); Lymphocytes % 5.8 %; Mean Corpuscular HGB Conc 32.4 g/dL (30-55); Mean Corpuscular Hemoglobin 32.8 pg (27-33); Mean Corpuscular Volume 101.2 fl (85-98); Mean Platelet Volume 9.2 fL (7.4-10.4); Monocytes # 0.3 10^3/uL (0.2-0.9); Monocytes % 5.8 %; Neutrophils # 5.19 10^3/uL (1.8-7.7); Neutrophils % 87.7 %; Nucleated Red Blood Cells % 0 %; Platelet Count 114 10^3/cmm (157-399); Red Blood Count 3.45 10^6/uL (3.85-5.65); Red Cell Distribution Width 15.3 % (12.1-15.1); White Blood Count 5.91 10^3/uL (3.29-11.43)
[2024-03-19 06:18] LABS: Anion Gap 18.1 (5-19); Blood Urea Nitrogen 67 mg/dL (8-23); Calcium 8.4 mg/dL (8.5-10.5); Carbon Dioxide 25 mmol/L (22-29); Chloride 91 mmol/L (98-107); Glucose 124 mg/dL (65-115); Osmolality Calculated 289 mOsm/kg (285-295); Potassium 5.1 mmol/L (3.5-5.1); Sodium 129 mmol/L (136-145)
[2024-03-19] MEDS: bumetanide 1 mg Tablet PO (08:06)
[2024-03-19] MEDS: sertraline 50 mg Tablet PO (08:06)
[2024-03-19] MEDS: pantoprazole DR 40 mg Tablet PO ×2 (08:06→17:43)
[2024-03-19] MEDS: ipratropium-albuterol 3 mL Neb INHALATION ×3 (08:07→19:16)
[2024-03-19] MEDS: budesonide 0.5 mg/2 mL Neb INHALATION ×2 (08:07→19:16)
--- NOTE | 2024-03-19 10:40 | PM.DCS ---
Discharge Providers Date of Admission: 03/16/24 01:00 Date of Discharge: March 19, 2024 Attending Provider at Admission: Barbara Banda MD Attending Provider at Discharge: Chinedu Avila MD Primary Care Provider: Jeff Banegas DO Diagnoses at Discharge Discharge Diagnosis (1) Congestive heart failure: Status: Acute (2) Acute on chronic renal insufficiency: Status: Acute (3) Leukoplakia of bladder: Status: Acute (4) History of recurrent UTI (urinary tract infection): Status: Acute (5) COPD (chronic obstructive pulmonary disease): Status: Acute (6) Acute exacerbation of chronic obstructive airways disease: Status: Acute (7) Acute hypoxemic respiratory failure: Status: Acute Reason for Visit Reason for Visit: SOB Hospital Course Hospital Course Susan Resendiz is a 78 year old female history of diabetes mellitus, UTI, COPD, GI bleed in the past presented to the hospital with complaint of difficulty breathing, she was experiencing the symptoms for quite some time but has gotten worse in last 1 week before arrival in the ER, she lives alone, does not use oxygen, during hospitalization she was diuresed which made her chronic kidney disease worsen, patient was made to hold off on diuretics which improved kidney function, it is trending down, patient's echo was done which showed preserved distal fraction with severe pulmonary hypertension, patient seems to have undiagnosed COPD at the time of discharge she has qualified for 3 L of oxygen, I have added Spiriva, Advair, albuterol, for her hypertension and tachycardia added diltiazem, avoiding beta-shaunna because of COPD and pulm hypertension, patient was diagnosed with DVT nonocclusive in nature, she was kept on heparin drip in the hospital, at the time of discharge she was given Eliquis. 2.5 mg twice daily. I have given her referral to see pulmonary hypertension specialist at [facility]. I asked egg caser to arrange a ride Patient is stating that she is not interested in prison placement at this point. She is asking for home health. Considering her severe pulmonary hypertension and dyspnea on exertion I do anticipate that she will be considered high risk for readmissions, ideally she will need right and left heart catheter chronic kidney disease will make her very high risk, baseline creatinine seems to be around 2.6-2.8 Physical Exam Narrative: Signs of fluid load improving Skin wrinkling noted Currently on 3 L Normotensive GCS 15 Dyspnea on exertion No active chest pain Urinary Catheter Management: Low: Cath Placed During This Visit: yes Reason for Continuing Indwelling Catheter: Other Urinary Catheter Date of Insertion: 03/16/24 Urinary Catheter Time of Insertion: 02:59 Discharge Data Studies Completed and Pending Completed Studies During Hospitalization Category Date Time Status CT chest wo con [id number] Urgent Cat Scan 03/16/24 02:00 Completed XR chest 1V portable [id number] Stat Exams 03/15/24 22:15 [place] [id number] Routine Ultrasound 03/17/24 06:00 Completed US echo complete [CV. echo complete* [id number]] Routine Ultrasound 03/16/24 00:01 Completed Pending at discharge Category Date Time Status Blood Culture Stat Lab 03/15/24 22:49 Results PTT [Partial Thromboplastin Time] Timed Lab 03/19/24 12:00 Ordered Platelet Count Q2D Lab 03/21/24 04:00 Ordered Sputum Culture and Gram Stain Stat Lab 03/16/24 00:02 Results Radiology Impressions Chest X-Ray 03/15/24 22:15 IMPRESSION: 1. Emphysematous changes. 2. Borderline cardiomegaly. 3. Bibasilar atelectasis versus minimal infiltrate. Chest CT 03/16/24 02:00 IMPRESSION: 1. Changes of emphysema with minimal atelectasis at the lung bases. 2. Cholelithiasis. Please note that the gallbladder is only partially imaged. 3. Partially imaged atrophic right kidney. Venous Duplex 03/17/24 06:00 IMPRESSION: Nonocclusive thrombus distal left superficial femoral vein and popliteal vein. ADDENDUM: 03/17/24 0831 COMMENT: THIS REPORT CONTAINS FINDINGS THAT MAY BE CRITICAL TO PATIENT CARE. The exam findings were verbally communicated by me to Dr. DAVIS via telephone conference at 8:29 AM CDT on 03/17/2024. The findings were acknowledged and understood. Laboratory Results WBC 5.91 10^3/uL (3.29-11.43) 03/19/24 05:40 RBC 3.45 10^6/uL (3.85-5.65) L 03/19/24 05:40 Hgb 11.30 g/dL (11.27-16.99) 03/19/24 05:40 Hct 34.9 % (36-47) L 03/19/24 05:40 MCV 101.2 fl (85-98) H 03/19/24 05:40 MCH 32.8 pg (27-33) 03/19/24 05:40 MCHC 32.4 g/dL (30-55) 03/19/24 05:40 RDW 15.3 % (12.1-15.1) H 03/19/24 05:40 Plt Count 114 10^3/cmm (157-399) L 03/19/24 05:40 MPV 9.2 fL (7.4-10.4) 03/19/24 05:40 Neut % (Auto) 87.7 % 03/19/24 05:40 Lymph % (Auto) 5.8 % 03/19/24 05:40 [place] % (Auto) 5.8 % 03/19/24 05:40 Eos % (Auto) 0.0 % 03/19/24 05:40 Baso % (Auto) 0.0 % 03/19/24 05:40 Neut # (Auto) 5.19 10^3/uL (1.8-7.7) 03/19/24 05:40 Lymph # (Auto) 0.3 10^3/uL (0.8-4.8) L 03/19/24 05:40 [place] # (Auto) 0.3 10^3/uL (0.2-0.9) 03/19/24 05:40 Eos # (Auto) 0.0 10^3/uL (0.0-0.8) 03/19/24 05:40 Baso # (Auto) 0.0 10^3/uL (0.0-0.1) 03/19/24 05:40 Nucleated RBC % (auto) 0 % 03/19/24 05:40 Nucleated RBCs # 0.0 /100WBC 03/19/24 05:40 PT 13.70 SECONDS (12.1-14.9) 03/15/24 22:19 INR 1.02 (0.8-1.2) 03/15/24 22:19 APTT 80.6 SECONDS (23.9-36.7) H D 03/19/24 05:02 D-Dimer 0.77 ug/mLFEU (0-0.59) H 03/15/24 22:19 Specimen Type Arterial 03/15/24 22:30 Sample Site Radial, left 03/15/24 22:30 ABG pH 7.31 (7.35-7.45) L 03/15/24 22:30 ABG pCO2 35.0 mmHg (35-45) 03/15/24 22:30 ABG pO2 93.7 mmHg (80.0-100.0) 03/15/24 22:30 ABG HCO3 17.6 mmol/L (22-26) L 03/15/24 22:30 ABG Base Excess -7.9 mmol/L (-2.0-2.0) L 03/15/24 22:30 Zackary Test Pos 03/15/24 22:30 Hematocrit 40.2 % (37-47) 03/15/24 22:30 O2 Delivery Device Nc 03/15/24 22:30 O2 Liters/Min 4.0 % 03/15/24 22:30 Optician Apprentice Dispensing ID Cl 03/15/24 22:30 Sodium 129 mmol/L (136-145) L 03/19/24 05:40 Potassium 5.1 mmol/L (3.5-5.1) 03/19/24 05:40 Chloride 91 mmol/L (98-107) L 03/19/24 05:40 Carbon Dioxide 25 mmol/L (22-29) 03/19/24 05:40 Anion Gap 18.1 (5-19) 03/19/24 05:40 BUN 67 mg/dL (8-23) H 03/19/24 05:40 Creatinine 2.8 mg/dL (0.5-0.9) H 03/19/24 05:40 GFR Calculation Not Reportable 03/19/24 05:40 Glucose 124 mg/dL (65-115) H 03/19/24 05:40 Serum Osmolality 293 mOsm/kg (278-305) 03/16/24 03:34 Calculated Osmolality 289 mOsm/kg (285-295) 03/19/24 05:40 Lactic Acid 1.1 mmol/L (0.5-2.2) 03/16/24 00:30 Lactic Acid (Sepsis) 1.2 mmol/L (0.5-2.2) 03/16/24 03:34 Calcium 8.4 mg/dL (8.5-10.5) L 03/19/24 05:40 Magnesium 2.3 mg/dL (1.7-2.3) 03/16/24 00:00 Total Bilirubin 0.4 mg/dL (0.15-1.2) 03/18/24 14:57 AST 27 U/L (0-32) 03/18/24 14:57 ALT 13 U/L (0-33) 03/18/24 14:57 Alkaline Phosphatase 85 U/L (35-105) 03/18/24 14:57 Troponin T Baseline 83 ng/L (0-10) H 03/15/24 22:19 Troponin T 120 Minute 78.19 ng/L (0-10) H 03/16/24 00:30 Delta Troponin T -4.81 ABS# (0-10) L 03/16/24 00:30 C-Reactive Protein 9.8 mg/L (0.0-4.9) H 03/16/24 03:34 NT-Pro-B Natriuret Pep 96097 pg/mL (0-450) H 03/15/24 22:19 Total Protein 7.1 g/dL (6.6-8.7) 03/18/24 14:57 Albumin 4.1 g/dL (3.5-5.2) 03/18/24 14:57 Globulin 3.0 g/dL (1.3-4.6) 03/18/24 14:57 Procalcitonin 0.21 ng/mL (0-0.5) 03/16/24 00:00 TSH 1.81 uIU/mL (0.27-4.20) 03/16/24 00:00 Urine Color Yellow (Yellow) 03/16/24 01:00 Urine Appearance Cloudy (CLEAR) A 03/16/24 01:00 Urine pH 7 (5-7) 03/16/24 01:00 Ur Specific [place] 1.005 (1.005-1.030) 03/16/24 01:00 Urine Protein 1+ (Negative) H 03/16/24 01:00 Urine Glucose (UA) Norm (Normal) 03/16/24 01:00 Urine Ketones 1+ (Negative) H 03/16/24 01:00 Urine Blood 2+ (Negative) H 03/16/24 01:00 Urine Nitrate Negative (Negative) 03/16/24 01:00 Urine Bilirubin Neg (Negative) 03/16/24 01:00 Urine Urobilinogen Neg mg/dL (Negative) 03/16/24 01:00 Ur Leukocyte Esterase 2+ (Negative) H 03/16/24 01:00 Urine RBC 5-10 /hpf (0-2) H 03/16/24 01:00 Urine WBC 15-25 /hpf (0-5) H 03/16/24 01:00 Ur Squamous Epith Cells 5-10 /hpf (0-5) H 03/16/24 01:00 Amorphous Sediment Not Reportable 03/16/24 01:00 Urine Bacteria 3+ /hpf (NONE) H 03/16/24 01:00 Hyaline Casts 0-4 /lpf H 03/16/24 01:00 Urine Mucus 1+ /hpf 03/16/24 01:00 Ur Random Sodium 46 mmol/L 03/16/24 01:00 Vitals Last Vital Signs Temp 97.7 F 03/19/24 07:50 Pulse 95 03/19/24 08:07 Resp 16 03/19/24 08:07 BP 121/66 03/19/24 07:50 Pulse Ox 84 L 03/19/24 09:07 O2 Del Method Nasal Cannula 03/19/24 08:09 O2 Flow Rate 3 03/19/24 09:07 FiO2 40 03/16/24 02:47 Discharge Plan Discharge Patient Disposition: Home Condition: Stable Prescriptions: New albuterol sulfate 90 mcg/actuation HFA aerosol inhaler 2 inh inhalation Q8H PRN (Reason: shortness of breath or wheezing) Qty: 6.7 2RF potassium chloride 10 mEq tablet extended release 10 meq PO EVERY OTHER DAY PRN (Reason: only with bumex) Qty: 30 1RF Rx Instructions: only with bumex, otherwise do not fluticasone propion-salmeterol [Advair HFA] 45-21 mcg/actuation HFA aerosol inhaler 2 inh inhalation BID Qty: 12 4RF bumetanide 1 mg Tablet 1 mg PO EVERY OTHER DAY Qty: 90 3RF Eliquis 2.5 mg tablet 2.5 mg PO BID Qty: 60 4RF diltiazem HCl [Cartia XT] 120 mg capsule,extended release 24hr 120 mg PO DAILY Qty: 30 3RF tiotropium bromide [Spiriva with HandiHaler] 18 mcg capsule, w/inhalation device 1 cap inhalation DAILY Qty: 90 4RF Rx Instructions: puncture 1 cap using device; one dose = 2 inhalations Continued Dulera See Rx Instructions .ROUTE .COMPLEX Rx Instructions: 2 puff bid sertraline 50 mg tablet 50 mg PO DAILY Discharge Orders: Discharge Order (Routine); Ordered 03/19/24 Ordered By: Chinedu Avila Other Ambulatory Orders: DME: Oxygen (Order) Location: None Selected Ordered By: Chinedu Avila Referrals: Chintan Sun MD [Referring] - 1 week (PULM HTN CLINIC We have notified your physician's clinic of the need for a follow-up appointment to be scheduled. If you have not heard from them within the next 2 business days, please call them directly. ) Jeff Banegas DO [Primary Care Provider] - 03/21/24 1:20 pm (This appointment will be with Betty Brooks as Dr. Banegas did not have an opening until mid- April. ) Discharge Diet: Cardiac Discharge Activity: Increase activity as tolerated Patient Instructions: COPD (Chronic Obstructive Pulmonary Disease) (DC), Anemia (DC), CHF Stoplight, COPD Stoplight, Opioid Safety, Pain Management Activity Restrictions/Additional Instructions: I am giving you referral to see a chair upholsterer at pulmonary hypertension clinic in [place] DR EDEL SUN is the MD Please call their clinic Please only take potassium when you take Bumex otherwise avoid taking potassium because you have chronic kidney disease it may increase your potassium level if you take it on daily basis without Bumex. You can increase your oxygen up to 5 or 6 L if your oxygen saturation stays below 89% Keep monitoring your oxygen saturations throughout the day your goal O2 saturation is around 89% and above Discharge Attestations Time Spent in Discharge Care*: greater than 30 min Quality Metrics Clinical Quality Measures [ No reported AMI, CVA or VTE this stay] Coding Level of Care Code Acute Code for Chg Fwd Diagnoses Congestive heart failure I50.9 Acute on chronic renal insufficiency N28.9; N18.9 Leukoplakia of bladder N32.89 History of recurrent UTI (urinary tract infection) Z87.440 COPD (chronic obstructive pulmonary disease) J44.9 Acute exacerbation of chronic obstructive airways disease J44.1 Acute hypoxemic respiratory failure J96.01
--- NOTE | 2024-03-19 11:47 | PC.NURSE ---
pt informed that she has a discharge order Pt still reported of feeling weak and unable to perform any activity to to shortness of breath. she said she lives alone. She is considering a rehab but would like to talk to a director case again. notified case mgt and doc.
[2024-03-19 12:52] LABS: Partial Thromboplastin Time 46.7 SECONDS (23.9-36.7)
--- NOTE | 2024-03-19 13:16 | P.PN_ITS ---
Subjective 2 Subjective: Patient has changed her mind, she wants to pursue SNF, case management updated Discharge planning will be changed to SNF instead of home Vitals/I&O/Wt Last Vital Signs Temp 97.7 F 03/19/24 07:50 Pulse 95 03/19/24 08:07 Resp 16 03/19/24 08:07 BP 121/66 03/19/24 07:50 Pulse Ox 84 L 03/19/24 09:07 O2 Del Method Nasal Cannula 03/19/24 08:09 O2 Flow Rate 3 03/19/24 09:07 FiO2 40 03/16/24 02:47 03/18/24 03/19/24 03/19/24 22:59 06:59 14:59 Intake Total 471.25 / 1218.25 121.95 / 1340.20 360 / 360 Output Total 550 / 1330 650 / 1980 Balance -78.75 / -111.75 -528.05 / -639.80 360 / 360 Weight last 48 hrs Weight 87.345 kg Weight 85.82 kg Physical Exam 2 Narrative: Currently on 3 L nasal cannula Eating breakfast Awake alert Skin wrinkling noted, nonpitting edema of lower extremity Awake and alert Bilateral breath sounds with mild rhonchi Anxious appearing Pursed lip breathing Urinary Catheter Management: Low: Cath Placed During This Visit: yes Reason for Continuing Indwelling Catheter: Other Urinary Catheter Date of Insertion: 03/16/24 Urinary Catheter Time of Insertion: 02:59 Data 03/19/24 05:40 03/19/24 05:40 Micro: Microbiology 03/17/24 16:08 Gram Stain - Final Sputum - Expectorated Sputum Sputum Culture - Preliminary Yeast species 03/16/24 01:00 Urine Culture - Final Urine,Clean Catch A&P Assessment and plan (1) Congestive heart failure: (2) Acute on chronic renal insufficiency: (3) Leukoplakia of bladder: (4) History of recurrent UTI (urinary tract infection): (5) COPD (chronic obstructive pulmonary disease): (6) Acute exacerbation of chronic obstructive airways disease: (7) Acute hypoxemic respiratory failure: Plan Dyspnea on exertion Patient was being discharged today after home oxygen evaluation she qualifies for oxygen, she was given pulmonary hypertension clinic follow-up, however she changed her mind and she wants to pursue SNF placement Lower extremity DVT change heparin to Eliquis 2.5 mg twice daily Acute on chronic kidney disease Hyperkalemia improving: Cardiorenal which got worse with overdiuresis, continue diuresis Acute COPD exacerbation Patient will need Spiriva Advair albuterol at the time of discharge Pulm hypertension I have given her referral for pulmonary hypertension clinic Currently on 4 L DVT prophylaxis currently covered with Eliquis Attestations 2 Medical Necessity Statement*: SNF placement Diagnoses Congestive heart failure I50.9 Acute on chronic renal insufficiency N28.9; N18.9 Leukoplakia of bladder N32.89 History of recurrent UTI (urinary tract infection) Z87.440 COPD (chronic obstructive pulmonary disease) J44.9 Acute exacerbation of chronic obstructive airways disease J44.1 Acute hypoxemic respiratory failure J96.01
[2024-03-19] MEDS: dilTIAZem ER (12HR) 60 mg Capsule PO (17:43)
--- NOTE | 2024-03-19 18:32 | PC.NURSE ---
unable to discharge today due to pt's decision to go to snf for rehab awaiting for prior auth.
[2024-03-19] MEDS: apixaban 5 mg Tablet 2.5 MG PO (21:11)
[2024-03-20] VITALS (14 sets, daily range): BP systolic 108–131; BP diastolic 61–79; PULSE 89–102; RESP 13–20; TEMP 36.4–36.7; O2SAT 88–96
[2024-03-20 03:28] LABS: Anion Gap 18.3 (5-19); Blood Urea Nitrogen 71 mg/dL (8-23); Calcium 8.3 mg/dL (8.5-10.5); Carbon Dioxide 28 mmol/L (22-29); Chloride 92 mmol/L (98-107); Creatinine Clr Calc Pharmacy 17.6203; Glucose 103 mg/dL (65-115); Osmolality Calculated 299 mOsm/kg (285-295); Potassium 4.3 mmol/L (3.5-5.1); Sodium 134 mmol/L (136-145)
[2024-03-20] MEDS: ipratropium-albuterol 3 mL Neb INHALATION ×4 (07:59→21:04)
[2024-03-20] MEDS: budesonide 0.5 mg/2 mL Neb INHALATION ×2 (08:00→21:05)
--- NOTE | 2024-03-20 10:24 | PC.SOCIAL ---
IMM Update pg 2 of IMM updated and reviewed w/ patient. Copy provided and copy dated, initialed and placed in chart.
[2024-03-20] MEDS: sertraline 50 mg Tablet PO (10:34)
[2024-03-20] MEDS: apixaban 5 mg Tablet 2.5 MG PO ×2 (10:34→20:45)
[2024-03-20] MEDS: bumetanide 1 mg Tablet PO (10:34)
[2024-03-20] MEDS: dilTIAZem ER (12HR) 60 mg Capsule PO ×2 (10:35→18:42)
[2024-03-20] MEDS: pantoprazole DR 40 mg Tablet PO ×2 (10:35→18:42)
--- NOTE | 2024-03-20 11:06 | P.PN_ITS ---
Subjective 2 Subjective: Creatinine improving Patient endorsing feeling better Endorsing productive cough On 3 L nasal cannula Afebrile Eating breakfast this morning Vitals/I&O/Wt Last Vital Signs Temp 97.6 F 03/20/24 08:00 Pulse 91 03/20/24 08:08 Resp 20 H 03/20/24 08:00 BP 108/65 03/20/24 08:00 Pulse Ox 96 03/20/24 08:00 O2 Del Method Nasal Cannula 03/20/24 08:00 O2 Flow Rate 3 03/20/24 08:00 FiO2 40 03/16/24 02:47 03/19/24 03/20/24 03/20/24 22:59 06:59 14:59 Intake Total 890 / 1685.167 200 / 1885.167 360 / 360 Output Total 300 / 1750 700 / 2450 Balance 590 / -64.833 -500 / -564.833 360 / 360 Weight last 48 hrs Weight 85.729 kg Weight 87.345 kg Physical Exam 2 Narrative: Awake and alert Bilateral breath sounds without rhonchi or crackles Lower extremity nonpitting edema Currently on 3 L Hemodynamic stable Eating breakfast Pleasant Nonfocal neuroexam Hearing Urinary Catheter Management: Low: Cath Placed During This Visit: yes Reason for Continuing Indwelling Catheter: Other Urinary Catheter Date of Insertion: 03/16/24 Urinary Catheter Time of Insertion: 02:59 Data 03/19/24 05:40 03/20/24 02:45 A&P Assessment and plan (1) Congestive heart failure: (2) Acute on chronic renal insufficiency: (3) Leukoplakia of bladder: (4) History of recurrent UTI (urinary tract infection): (5) COPD (chronic obstructive pulmonary disease): (6) Acute exacerbation of chronic obstructive airways disease: (7) Acute hypoxemic respiratory failure: Plan Dyspnea on exertion Related to CHF and pulmonary hypertension Plan to send her to rehab Qualified for 3 L of oxygen Lower extremity DVT change heparin to Eliquis 2.5 mg twice daily Acute on chronic kidney disease Potassium 4.3: Normal Cardiorenal which got worse with overdiuresis, continue diuresis Acute COPD exacerbation Patient will need Spiriva Advair albuterol at the time of discharge Pulm hypertension I have given her referral for pulmonary hypertension clinic Currently on 4 L DVT prophylaxis currently covered with Eliquis Disposition: Awaiting SNF placement Attestations 2 Medical Necessity Statement*: Continue medical management Diagnoses Congestive heart failure I50.9 Acute on chronic renal insufficiency N28.9; N18.9 Leukoplakia of bladder N32.89 History of recurrent UTI (urinary tract infection) Z87.440 COPD (chronic obstructive pulmonary disease) J44.9 Acute exacerbation of chronic obstructive airways disease J44.1 Acute hypoxemic respiratory failure J96.01
[2024-03-20 11:10] LABS: SARS Covid-2 Antigen negative (Negative)
[2024-03-21] VITALS (13 sets, daily range): BP systolic 119–136; BP diastolic 66–75; PULSE 86–102; RESP 17–26; TEMP 36.7–36.9; O2SAT 90–96
[2024-03-21] MEDS: pantoprazole DR 40 mg Tablet PO ×2 (08:48→17:04)
[2024-03-21] MEDS: sertraline 50 mg Tablet PO (08:48)
[2024-03-21] MEDS: dilTIAZem ER (12HR) 60 mg Capsule PO ×2 (08:49→17:04)
[2024-03-21] MEDS: apixaban 5 mg Tablet 2.5 MG PO ×2 (08:49→21:01)
[2024-03-21] MEDS: bumetanide 1 mg Tablet PO (08:49)
[2024-03-21] MEDS: ipratropium-albuterol 3 mL Neb INHALATION ×4 (08:55→20:26)
[2024-03-21] MEDS: budesonide 0.5 mg/2 mL Neb INHALATION ×2 (08:55→20:26)
--- NOTE | 2024-03-21 09:23 | P.DS_ITS ---
Discharge Providers Date of Admission: 03/16/24 01:00 Date of Discharge: March 21, 2024 Attending Provider at Admission: Barbara Banda MD Attending Provider at Discharge: Chinedu Avila MD Primary Care Provider: Jeff Banegas DO Diagnoses at Discharge Discharge Diagnosis (1) Congestive heart failure: Status: Acute (2) Acute on chronic renal insufficiency: Status: Acute (3) Leukoplakia of bladder: Status: Acute (4) History of recurrent UTI (urinary tract infection): Status: Acute (5) COPD (chronic obstructive pulmonary disease): Status: Acute (6) Acute exacerbation of chronic obstructive airways disease: Status: Acute (7) Acute hypoxemic respiratory failure: Status: Acute Reason for Visit Reason for Visit: SOB Hospital Course Hospital Course Susan Resendiz is a 78 year old female history of diabetes mellitus, UTI, COPD, GI bleed in the past presented to the hospital with complaint of difficulty breathing, she was experiencing the symptoms for quite some time but has gotten worse in last 1 week before arrival in the ER, she lives alone, does not use oxygen, during hospitalization she was diuresed which made her chronic kidney disease worsen, patient was made to hold off on diuretics which improved kidney function, it is trending down, patient's echo was done which showed preserved distal fraction with severe pulmonary hypertension, patient seems to have undiagnosed COPD at the time of discharge she has qualified for 3 L of oxygen, I have added Spiriva, Advair, albuterol, for her hypertension and tachycardia added diltiazem, avoiding beta-shaunna because of COPD and pulm hypertension, patient was diagnosed with DVT nonocclusive in nature, she was kept on heparin drip in the hospital, at the time of discharge she was given Eliquis. 2.5 mg twice daily. I have given her referral to see pulmonary hypertension specialist at [facility]. I asked case filler to arrange a ride Patient is stating that she is not interested in senior care placement at this point. She is asking for home health. Considering her severe pulmonary hypertension and dyspnea on exertion I do anticipate that she will be considered high risk for readmissions, ideally she will need right and left heart catheter chronic kidney disease will make her very high risk, baseline creatinine seems to be around 2.6-2.8 Physical Exam Narrative: Signs of fluid load improving Currently doing well on 4 L nasal cannula Eating breakfast GCS 15 Pleasant calm Hemodynamically stable Urinary Catheter Management: Low: Cath Placed During This Visit: yes, but has since been removed by the nurse Reason for Continuing Indwelling Catheter: Decision to DC Catheter Urinary Catheter Date of Insertion: 03/16/24 Urinary Catheter Time of Insertion: 02:59 Date Urinary Catheter Removed: 03/20/24 Time Urinary Catheter Discontinued: 13:15 Discharge Data Studies Completed and Pending Completed Studies During Hospitalization Category Date Time Status CT chest wo con [id number] Urgent Cat Scan 03/16/24 02:00 Completed XR chest 1V portable [id number] Stat Exams 03/15/24 22:15 [place] [id number] Routine Ultrasound 03/17/24 06:00 Completed US echo complete [CV. echo complete* [id number]] Routine Ultrasound 03/16/24 00:01 Completed Radiology Impressions Chest X-Ray 03/15/24 22:15 IMPRESSION: 1. Emphysematous changes. 2. Borderline cardiomegaly. 3. Bibasilar atelectasis versus minimal infiltrate. Chest CT 03/16/24 02:00 IMPRESSION: 1. Changes of emphysema with minimal atelectasis at the lung bases. 2. Cholelithiasis. Please note that the gallbladder is only partially imaged. 3. Partially imaged atrophic right kidney. Venous Duplex 03/17/24 06:00 IMPRESSION: Nonocclusive thrombus distal left superficial femoral vein and popliteal vein. ADDENDUM: 03/17/24 0831 COMMENT: THIS REPORT CONTAINS FINDINGS THAT MAY BE CRITICAL TO PATIENT CARE. The exam findings were verbally communicated by me to Dr. DAVIS via telephone conference at 8:29 AM CDT on 03/17/2024. The findings were acknowledged and understood. Laboratory Results WBC 5.91 10^3/uL (3.29-11.43) 03/19/24 05:40 RBC 3.45 10^6/uL (3.85-5.65) L 03/19/24 05:40 Hgb 11.30 g/dL (11.27-16.99) 03/19/24 05:40 Hct 34.9 % (36-47) L 03/19/24 05:40 MCV 101.2 fl (85-98) H 03/19/24 05:40 MCH 32.8 pg (27-33) 03/19/24 05:40 MCHC 32.4 g/dL (30-55) 03/19/24 05:40 RDW 15.3 % (12.1-15.1) H 03/19/24 05:40 Plt Count 114 10^3/cmm (157-399) L 03/19/24 05:40 MPV 9.2 fL (7.4-10.4) 03/19/24 05:40 Neut % (Auto) 87.7 % 03/19/24 05:40 Lymph % (Auto) 5.8 % 03/19/24 05:40 [place] % (Auto) 5.8 % 03/19/24 05:40 Eos % (Auto) 0.0 % 03/19/24 05:40 Baso % (Auto) 0.0 % 03/19/24 05:40 Neut # (Auto) 5.19 10^3/uL (1.8-7.7) 03/19/24 05:40 Lymph # (Auto) 0.3 10^3/uL (0.8-4.8) L 03/19/24 05:40 [place] # (Auto) 0.3 10^3/uL (0.2-0.9) 03/19/24 05:40 Eos # (Auto) 0.0 10^3/uL (0.0-0.8) 03/19/24 05:40 Baso # (Auto) 0.0 10^3/uL (0.0-0.1) 03/19/24 05:40 Nucleated RBC % (auto) 0 % 03/19/24 05:40 Nucleated RBCs # 0.0 /100WBC 03/19/24 05:40 PT 13.70 SECONDS (12.1-14.9) 03/15/24 22:19 INR 1.02 (0.8-1.2) 03/15/24 22:19 APTT 46.7 SECONDS (23.9-36.7) H 03/19/24 11:56 D-Dimer 0.77 ug/mLFEU (0-0.59) H 03/15/24 22:19 Specimen Type Arterial 03/15/24 22:30 Sample Site Radial, left 03/15/24 22:30 ABG pH 7.31 (7.35-7.45) L 03/15/24 22:30 ABG pCO2 35.0 mmHg (35-45) 03/15/24 22:30 ABG pO2 93.7 mmHg (80.0-100.0) 03/15/24 22:30 ABG HCO3 17.6 mmol/L (22-26) L 03/15/24 22:30 ABG Base Excess -7.9 mmol/L (-2.0-2.0) L 03/15/24 22:30 Zackary Test Pos 03/15/24 22:30 Hematocrit 40.2 % (37-47) 03/15/24 22:30 O2 Delivery Device Nc 03/15/24 22:30 O2 Liters/Min 4.0 % 03/15/24 22:30 Journeyman Operator Assistant ID Cl 03/15/24 22:30 Sodium 134 mmol/L (136-145) L 03/20/24 02:45 Potassium 4.3 mmol/L (3.5-5.1) 03/20/24 02:45 Chloride 92 mmol/L (98-107) L 03/20/24 02:45 Carbon Dioxide 28 mmol/L (22-29) 03/20/24 02:45 Anion Gap 18.3 (5-19) 03/20/24 02:45 BUN 71 mg/dL (8-23) H 03/20/24 02:45 Creatinine 2.7 mg/dL (0.5-0.9) H 03/20/24 02:45 GFR Calculation Not Reportable 03/20/24 02:45 Glucose 103 mg/dL (65-115) 03/20/24 02:45 Serum Osmolality 293 mOsm/kg (278-305) 03/16/24 03:34 Calculated Osmolality 299 mOsm/kg (285-295) H 03/20/24 02:45 Lactic Acid 1.1 mmol/L (0.5-2.2) 03/16/24 00:30 Lactic Acid (Sepsis) 1.2 mmol/L (0.5-2.2) 03/16/24 03:34 Calcium 8.3 mg/dL (8.5-10.5) L 03/20/24 02:45 Magnesium 2.3 mg/dL (1.7-2.3) 03/16/24 00:00 Total Bilirubin 0.4 mg/dL (0.15-1.2) 03/18/24 14:57 AST 27 U/L (0-32) 03/18/24 14:57 ALT 13 U/L (0-33) 03/18/24 14:57 Alkaline Phosphatase 85 U/L (35-105) 03/18/24 14:57 Troponin T Baseline 83 ng/L (0-10) H 03/15/24 22:19 Troponin T 120 Minute 78.19 ng/L (0-10) H 03/16/24 00:30 Delta Troponin T -4.81 ABS# (0-10) L 03/16/24 00:30 C-Reactive Protein 9.8 mg/L (0.0-4.9) H 03/16/24 03:34 NT-Pro-B Natriuret Pep 28454 pg/mL (0-450) H 03/15/24 22:19 Total Protein 7.1 g/dL (6.6-8.7) 03/18/24 14:57 Albumin 4.1 g/dL (3.5-5.2) 03/18/24 14:57 Globulin 3.0 g/dL (1.3-4.6) 03/18/24 14:57 Procalcitonin 0.21 ng/mL (0-0.5) 03/16/24 00:00 TSH 1.81 uIU/mL (0.27-4.20) 03/16/24 00:00 Urine Color Yellow (Yellow) 03/16/24 01:00 Urine Appearance Cloudy (CLEAR) A 03/16/24 01:00 Urine pH 7 (5-7) 03/16/24 01:00 Ur Specific [place] 1.005 (1.005-1.030) 03/16/24 01:00 Urine Protein 1+ (Negative) H 03/16/24 01:00 Urine Glucose (UA) Norm (Normal) 03/16/24 01:00 Urine Ketones 1+ (Negative) H 03/16/24 01:00 Urine Blood 2+ (Negative) H 03/16/24 01:00 Urine Nitrate Negative (Negative) 03/16/24 01:00 Urine Bilirubin Neg (Negative) 03/16/24 01:00 Urine Urobilinogen Neg mg/dL (Negative) 03/16/24 01:00 Ur Leukocyte Esterase 2+ (Negative) H 03/16/24 01:00 Urine RBC 5-10 /hpf (0-2) H 03/16/24 01:00 Urine WBC 15-25 /hpf (0-5) H 03/16/24 01:00 Ur Squamous Epith Cells 5-10 /hpf (0-5) H 03/16/24 01:00 Amorphous Sediment Not Reportable 03/16/24 01:00 Urine Bacteria 3+ /hpf (NONE) H 03/16/24 01:00 Hyaline Casts 0-4 /lpf H 03/16/24 01:00 Urine Mucus 1+ /hpf 03/16/24 01:00 Ur Random Sodium 46 mmol/L 03/16/24 01:00 SARS-CoV-2 Ag (Rapid) negative (Negative) 03/20/24 10:40 Vitals Last Vital Signs Temp 98.0 F 03/21/24 08:00 Pulse 92 03/21/24 08:00 Resp 18 03/21/24 08:00 BP 130/70 03/21/24 08:00 Pulse Ox 92 03/21/24 08:00 O2 Del Method Nasal Cannula 03/21/24 08:00 O2 Flow Rate 3 03/21/24 08:00 FiO2 40 03/16/24 02:47 Discharge Plan Discharge Patient Disposition: Xfer [facility] Condition: Stable Prescriptions: New bumetanide 1 mg Tablet 1 mg PO EVERY OTHER DAY Qty: 90 3RF albuterol sulfate 90 mcg/actuation HFA aerosol inhaler 2 inh inhalation Q8H PRN (Reason: shortness of breath or wheezing) Qty: 6.7 2RF Eliquis 2.5 mg tablet 2.5 mg PO BID Qty: 60 4RF Cartia XT 120 mg capsule,extended release 24hr 120 mg PO DAILY Qty: 30 3RF potassium chloride 10 mEq tablet extended release 10 meq PO EVERY OTHER DAY PRN (Reason: only with bumex) Qty: 30 1RF Rx Instructions: only with bumex, otherwise do not Advair HFA 45-21 mcg/actuation HFA aerosol inhaler 2 inh inhalation BID Qty: 12 4RF Spiriva with HandiHaler 18 mcg capsule, w/inhalation device 1 cap inhalation DAILY Qty: 90 4RF Rx Instructions: puncture 1 cap using device; one dose = 2 inhalations Continued Dulera See Rx Instructions .ROUTE .COMPLEX Rx Instructions: 2 puff bid sertraline 50 mg tablet 50 mg PO DAILY Discharge Orders: Discharge Order (Routine); Ordered 03/21/24 Ordered By: Chinedu Avila Other Ambulatory Orders: DME: Oxygen (Order) Location: None Selected Ordered By: Chinedu Avila Referrals: [facility] [Outside] Chintan Sun MD [Referring] - 1 week (PULM HTN CLINIC We have notified your physician's clinic of the need for a follow-up appointment to be scheduled. If you have not heard from them within the next 2 business days, please call them directly. ) Jeff Banegas DO [Primary Care Provider] - 03/21/24 1:20 pm (This appointment will be with Betty Brooks as Dr. Banegas did not have an opening until mid- April. ) Discharge Diet: Cardiac Discharge Activity: Increase activity as tolerated Patient Instructions: Cor Pulmonale (GEN), COPD (Chronic Obstructive Pulmonary Disease) (DC), Pulmonary Arterial Hypertension (GEN), CHF Stoplight, COPD Stoplight, Opioid Safety, Pain Management Activity Restrictions/Additional Instructions: I am giving you referral to see a block operator at pulmonary hypertension clinic in [place] DR EDEL SUN is the MD Please call their clinic Please only take potassium when you take Bumex otherwise avoid taking potassium because you have chronic kidney disease it may increase your potassium level if you take it on daily basis without Bumex. You can increase your oxygen up to 5 or 6 L if your oxygen saturation stays below 89% Keep monitoring your oxygen saturations throughout the day your goal O2 saturation is around 89% and above Coding Level of Care Code Acute Code for Chg Fwd Diagnoses Congestive heart failure I50.9 Acute on chronic renal insufficiency N28.9; N18.9 Leukoplakia of bladder N32.89 History of recurrent UTI (urinary tract infection) Z87.440 COPD (chronic obstructive pulmonary disease) J44.9 Acute exacerbation of chronic obstructive airways disease J44.1 Acute hypoxemic respiratory failure J96.01
--- NOTE | 2024-03-21 10:39 | P.PN_ITS ---
Subjective 2 Subjective: We are still waiting for approval from insurance Patient doing well on 3 to 4-week nasal cannula Patient stating that she is not interested in long-term alf placement I called her son who is stating that he has been estranged from his mother because she was not willing to make him power of employment attorney since his dad , there are 2 other brothers living in [place] but they live in an apartment they are not able to bring mom back in [place] Patient mostly relies on her friend with name of Salma Vitals/I&O/Wt Last Vital Signs Temp 98.0 F 03/21/24 08:00 Pulse 92 03/21/24 08:00 Resp 18 03/21/24 08:00 BP 130/70 03/21/24 08:00 Pulse Ox 92 03/21/24 08:00 O2 Del Method Nasal Cannula 03/21/24 08:00 O2 Flow Rate 3 03/21/24 08:00 FiO2 40 03/16/24 02:47 03/20/24 03/21/24 03/21/24 22:59 06:59 14:59 Intake Total 360 / 720 300 / 1020 120 / 120 Balance 360 / -280 300 / 20 120 / 120 Weight last 48 hrs Weight 83.659 kg Weight 85.729 kg Physical Exam 2 Narrative: Awake alert Euvolemic Currently on 4 L nasal cannula at present Hemodynamic stable eating breakfast Urinary Catheter Management: Low: Cath Placed During This Visit: yes, but has since been removed by the nurse Reason for Continuing Indwelling Catheter: Decision to DC Catheter Urinary Catheter Date of Insertion: 03/16/24 Urinary Catheter Time of Insertion: 02:59 Date Urinary Catheter Removed: 03/20/24 Time Urinary Catheter Discontinued: 13:15 Data 03/19/24 05:40 03/20/24 02:45 Micro: Microbiology 03/15/24 22:49 Blood Culture - Final Blood NO GROWTH AFTER 5 DAYS 03/15/24 22:45 Blood Culture - Final Blood NO GROWTH AFTER 5 DAYS 03/17/24 16:08 Gram Stain - Final Sputum - Expectorated Sputum Sputum Culture - Final Glenny krusei A&P Assessment and plan (1) Congestive heart failure: (2) COPD (chronic obstructive pulmonary disease): (3) Pulmonary hypertension: Plan Awaiting placement Currently on 3 L, severe pulmonary hypertension Might not be a good candidate for angiogram right and left heart cath secondary to chronic kidney disease Spoke with her son She does not have any medical DPOA, she relies on her friend Salma for most of the help She is full code I am concerned about future complications such as worsening of hypoxia, respiratory distress, cardiac arrest Attestations 2 Medical Necessity Statement*: If we are not able to get approval for alf unfortunately she has to go home with such poor condition Diagnoses Congestive heart failure I50.9 COPD (chronic obstructive pulmonary disease) J44.9 Pulmonary hypertension I27.20
[2024-03-21] MEDS: acetaminophen 325 mg Tablet 650 MG PO (21:00)
[2024-03-22] VITALS (12 sets, daily range): BP systolic 113–136; BP diastolic 63–93; PULSE 79–90; RESP 15–21; TEMP 36.5–36.7; O2SAT 86–95
[2024-03-22] MEDS: budesonide 0.5 mg/2 mL Neb INHALATION (07:20)
[2024-03-22] MEDS: ipratropium-albuterol 3 mL Neb INHALATION ×3 (07:20→15:15)
[2024-03-22] MEDS: dilTIAZem ER (12HR) 60 mg Capsule PO (08:20)
[2024-03-22] MEDS: bumetanide 1 mg Tablet PO (08:21)
[2024-03-22] MEDS: sertraline 50 mg Tablet PO (08:21)
[2024-03-22] MEDS: apixaban 5 mg Tablet 2.5 MG PO (08:21)
[2024-03-22] MEDS: pantoprazole DR 40 mg Tablet PO (08:21)
--- NOTE | 2024-03-22 09:19 | PM.DCS ---
Discharge Providers Date of Admission: 03/16/24 01:00 Date of Discharge: March 22, 2024 Attending Provider at Admission: Barbara Banda MD Attending Provider at Discharge: Chinedu Avila MD Primary Care Provider: Jeff Bnaegas DO Diagnoses at Discharge Discharge Diagnosis (1) Congestive heart failure: Status: Acute (2) COPD (chronic obstructive pulmonary disease): Status: Acute (3) Pulmonary hypertension: Status: Acute Reason for Visit Reason for Visit: SOB Hospital Course Hospital Course Susan Resendiz is a 78 year old female history of diabetes mellitus, UTI, COPD, GI bleed in the past presented to the hospital with complaint of difficulty breathing, she was experiencing the symptoms for quite some time but has gotten worse in last 1 week before arrival in the ER, she lives alone, does not use oxygen, during hospitalization she was diuresed which made her chronic kidney disease worsen, patient was made to hold off on diuretics which improved kidney function, it is trending down, patient's echo was done which showed preserved distal fraction with severe pulmonary hypertension, patient seems to have undiagnosed COPD at the time of discharge she has qualified for 3 L of oxygen, I have added Spiriva, Advair, albuterol, for her hypertension and tachycardia added diltiazem, avoiding beta-shaunna because of COPD and pulm hypertension, patient was diagnosed with DVT nonocclusive in nature, she was kept on heparin drip in the hospital, at the time of discharge she was given Eliquis. 2.5 mg twice daily. I have given her referral to see pulmonary hypertension specialist at [place]. I asked case management specialist to arrange a ride Patient is stating that she is not interested in detention placement at this point. She is asking for home health. Considering her severe pulmonary hypertension and dyspnea on exertion I do anticipate that she will be considered high risk for readmissions, ideally she will need right and left heart catheter chronic kidney disease will make her very high risk, baseline creatinine seems to be around 2.6-2.8 NH was denied by her insurance because of lack of ability to participate for PT I spoke w her son, son is estranged because Ms Resendiz has not allowed anyone to become Medical and relies on her friend Salma Son however called her and agrees that she is high risk for any intervention for PH workup but needs expert opinion from [facility] PH clinic Physical Exam Narrative: Awake alert Euvolemic Currently on 4 L nasal cannula at present Hemodynamic stable eating breakfast Urinary Catheter Management: Low: Cath Placed During This Visit: yes, but has since been removed by the nurse Reason for Continuing Indwelling Catheter: Decision to DC Catheter Urinary Catheter Date of Insertion: 03/16/24 Urinary Catheter Time of Insertion: 02:59 Date Urinary Catheter Removed: 03/20/24 Time Urinary Catheter Discontinued: 13:15 Discharge Data Studies Completed and Pending Completed Studies During Hospitalization Category Date Time Status CT chest wo con [id number] Urgent Cat Scan 03/16/24 02:00 Completed XR chest 1V portable [id number] Stat Exams 03/15/24 22:15 [place] [id number] Routine Ultrasound 03/17/24 06:00 Completed US echo complete [CV. echo complete* [id number]] Routine Ultrasound 03/16/24 00:01 Completed Radiology Impressions Chest X-Ray 03/15/24 22:15 IMPRESSION: 1. Emphysematous changes. 2. Borderline cardiomegaly. 3. Bibasilar atelectasis versus minimal infiltrate. Chest CT 03/16/24 02:00 IMPRESSION: 1. Changes of emphysema with minimal atelectasis at the lung bases. 2. Cholelithiasis. Please note that the gallbladder is only partially imaged. 3. Partially imaged atrophic right kidney. Venous Duplex 03/17/24 06:00 IMPRESSION: Nonocclusive thrombus distal left superficial femoral vein and popliteal vein. ADDENDUM: 03/17/24 0831 COMMENT: THIS REPORT CONTAINS FINDINGS THAT MAY BE CRITICAL TO PATIENT CARE. The exam findings were verbally communicated by me to Dr. DAVIS via telephone conference at 8:29 AM CDT on 03/17/2024. The findings were acknowledged and understood. Laboratory Results WBC 5.91 10^3/uL (3.29-11.43) 03/19/24 05:40 RBC 3.45 10^6/uL (3.85-5.65) L 03/19/24 05:40 Hgb 11.30 g/dL (11.27-16.99) 03/19/24 05:40 Hct 34.9 % (36-47) L 03/19/24 05:40 MCV 101.2 fl (85-98) H 03/19/24 05:40 MCH 32.8 pg (27-33) 03/19/24 05:40 MCHC 32.4 g/dL (30-55) 03/19/24 05:40 RDW 15.3 % (12.1-15.1) H 03/19/24 05:40 Plt Count 114 10^3/cmm (157-399) L 03/19/24 05:40 MPV 9.2 fL (7.4-10.4) 03/19/24 05:40 Neut % (Auto) 87.7 % 03/19/24 05:40 Lymph % (Auto) 5.8 % 03/19/24 05:40 Jay % (Auto) 5.8 % 03/19/24 05:40 Eos % (Auto) 0.0 % 03/19/24 05:40 Baso % (Auto) 0.0 % 03/19/24 05:40 Neut # (Auto) 5.19 10^3/uL (1.8-7.7) 03/19/24 05:40 Lymph # (Auto) 0.3 10^3/uL (0.8-4.8) L 03/19/24 05:40 Jay # (Auto) 0.3 10^3/uL (0.2-0.9) 03/19/24 05:40 Eos # (Auto) 0.0 10^3/uL (0.0-0.8) 03/19/24 05:40 Baso # (Auto) 0.0 10^3/uL (0.0-0.1) 03/19/24 05:40 Nucleated RBC % (auto) 0 % 03/19/24 05:40 Nucleated RBCs # 0.0 /100WBC 03/19/24 05:40 PT 13.70 SECONDS (12.1-14.9) 03/15/24 22:19 INR 1.02 (0.8-1.2) 03/15/24 22:19 APTT 46.7 SECONDS (23.9-36.7) H 03/19/24 11:56 D-Dimer 0.77 ug/mLFEU (0-0.59) H 03/15/24 22:19 Specimen Type Arterial 03/15/24 22:30 Sample Site Radial, left 03/15/24 22:30 ABG pH 7.31 (7.35-7.45) L 03/15/24 22:30 ABG pCO2 35.0 mmHg (35-45) 03/15/24 22:30 ABG pO2 93.7 mmHg (80.0-100.0) 03/15/24 22:30 ABG HCO3 17.6 mmol/L (22-26) L 03/15/24 22:30 ABG Base Excess -7.9 mmol/L (-2.0-2.0) L 03/15/24 22:30 Zackary Test Pos 03/15/24 22:30 Hematocrit 40.2 % (37-47) 03/15/24 22:30 O2 Delivery Device Nc 03/15/24 22:30 O2 Liters/Min 4.0 % 03/15/24 22:30 Supervisor Hand Silver[employer] ID Cl 03/15/24 22:30 Sodium 134 mmol/L (136-145) L 03/20/24 02:45 Potassium 4.3 mmol/L (3.5-5.1) 03/20/24 02:45 Chloride 92 mmol/L (98-107) L 03/20/24 02:45 Carbon Dioxide 28 mmol/L (22-29) 03/20/24 02:45 Anion Gap 18.3 (5-19) 03/20/24 02:45 BUN 71 mg/dL (8-23) H 03/20/24 02:45 Creatinine 2.7 mg/dL (0.5-0.9) H 03/20/24 02:45 GFR Calculation Not Reportable 03/20/24 02:45 Glucose 103 mg/dL (65-115) 03/20/24 02:45 Serum Osmolality 293 mOsm/kg (278-305) 03/16/24 03:34 Calculated Osmolality 299 mOsm/kg (285-295) H 03/20/24 02:45 Lactic Acid 1.1 mmol/L (0.5-2.2) 03/16/24 00:30 Lactic Acid (Sepsis) 1.2 mmol/L (0.5-2.2) 03/16/24 03:34 Calcium 8.3 mg/dL (8.5-10.5) L 03/20/24 02:45 Magnesium 2.3 mg/dL (1.7-2.3) 03/16/24 00:00 Total Bilirubin 0.4 mg/dL (0.15-1.2) 03/18/24 14:57 AST 27 U/L (0-32) 03/18/24 14:57 ALT 13 U/L (0-33) 03/18/24 14:57 Alkaline Phosphatase 85 U/L (35-105) 03/18/24 14:57 Troponin T Baseline 83 ng/L (0-10) H 03/15/24 22:19 Troponin T 120 Minute 78.19 ng/L (0-10) H 03/16/24 00:30 Delta Troponin T -4.81 ABS# (0-10) L 03/16/24 00:30 C-Reactive Protein 9.8 mg/L (0.0-4.9) H 03/16/24 03:34 NT-Pro-B Natriuret Pep 14075 pg/mL (0-450) H 03/15/24 22:19 Total Protein 7.1 g/dL (6.6-8.7) 03/18/24 14:57 Albumin 4.1 g/dL (3.5-5.2) 03/18/24 14:57 Globulin 3.0 g/dL (1.3-4.6) 03/18/24 14:57 Procalcitonin 0.21 ng/mL (0-0.5) 03/16/24 00:00 TSH 1.81 uIU/mL (0.27-4.20) 03/16/24 00:00 Urine Color Yellow (Yellow) 03/16/24 01:00 Urine Appearance Cloudy (CLEAR) A 03/16/24 01:00 Urine pH 7 (5-7) 03/16/24 01:00 Ur Specific [place] 1.005 (1.005-1.030) 03/16/24 01:00 Urine Protein 1+ (Negative) H 03/16/24 01:00 Urine Glucose (UA) Norm (Normal) 03/16/24 01:00 Urine Ketones 1+ (Negative) H 03/16/24 01:00 Urine Blood 2+ (Negative) H 03/16/24 01:00 Urine Nitrate Negative (Negative) 03/16/24 01:00 Urine Bilirubin Neg (Negative) 03/16/24 01:00 Urine Urobilinogen Neg mg/dL (Negative) 03/16/24 01:00 Ur Leukocyte Esterase 2+ (Negative) H 03/16/24 01:00 Urine RBC 5-10 /hpf (0-2) H 03/16/24 01:00 Urine WBC 15-25 /hpf (0-5) H 03/16/24 01:00 Ur Squamous Epith Cells 5-10 /hpf (0-5) H 03/16/24 01:00 Amorphous Sediment Not Reportable 03/16/24 01:00 Urine Bacteria 3+ /hpf (NONE) H 03/16/24 01:00 Hyaline Casts 0-4 /lpf H 03/16/24 01:00 Urine Mucus 1+ /hpf 03/16/24 01:00 Ur Random Sodium 46 mmol/L 03/16/24 01:00 SARS-CoV-2 Ag (Rapid) negative (Negative) 03/20/24 10:40 Vitals Last Vital Signs Temp 97.8 F 03/22/24 08:00 Pulse 82 03/22/24 08:00 Resp 19 H 03/22/24 08:00 BP 113/63 03/22/24 08:00 Pulse Ox 90 03/22/24 08:00 O2 Del Method Nasal Cannula 03/22/24 08:00 O2 Flow Rate 3 03/22/24 07:30 FiO2 40 03/16/24 02:47 Discharge Plan Discharge Patient Disposition: Home Condition: Stable Prescriptions: New bumetanide 1 mg Tablet 1 mg PO EVERY OTHER DAY Qty: 90 3RF albuterol sulfate 90 mcg/actuation HFA aerosol inhaler 2 inh inhalation Q8H PRN (Reason: shortness of breath or wheezing) Qty: 6.7 2RF Eliquis 2.5 mg tablet 2.5 mg PO BID Qty: 60 4RF Cartia XT 120 mg capsule,extended release 24hr 120 mg PO DAILY Qty: 30 3RF potassium chloride 10 mEq tablet extended release 10 meq PO EVERY OTHER DAY PRN (Reason: only with bumex) Qty: 30 1RF Rx Instructions: only with bumex, otherwise do not Advair HFA 45-21 mcg/actuation HFA aerosol inhaler 2 inh inhalation BID Qty: 12 4RF Spiriva with HandiHaler 18 mcg capsule, w/inhalation device 1 cap inhalation DAILY Qty: 90 4RF Rx Instructions: puncture 1 cap using device; one dose = 2 inhalations Continued Dulera See Rx Instructions .ROUTE .COMPLEX Rx Instructions: 2 puff bid sertraline 50 mg tablet 50 mg PO DAILY Discharge Orders: Discharge Order (Routine); Ordered 03/22/24 Ordered By: Chinedu Avila Other Ambulatory Orders: DME: Oxygen (Order) Location: None Selected Ordered By: Chinedu Avila Referrals: [facility] [Outside] Chintan Sun MD [Referring] - 1 week (PULM HTN CLINIC We have notified your physician's clinic of the need for a follow-up appointment to be scheduled. If you have not heard from them within the next 2 business days, please call them directly. ) Jeff Banegas, [Primary Care Provider] - 03/21/24 1:20 pm (This appointment will be with Betty Brooks as Dr. Banegas did not have an opening until mid- April. ) Discharge Diet: Cardiac Discharge Activity: Increase activity as tolerated Patient Instructions: Cor Pulmonale (GEN), COPD (Chronic Obstructive Pulmonary Disease) (DC), Pulmonary Arterial Hypertension (GEN), CHF Stoplight, COPD Stoplight, Opioid Safety, Pain Management Activity Restrictions/Additional Instructions: I am giving you referral to see a process supervisor at pulmonary hypertension clinic in [place] DR EDEL SUN is the MD Please call their clinic Please only take potassium when you take Bumex otherwise avoid taking potassium because you have chronic kidney disease it may increase your potassium level if you take it on daily basis without Bumex. You can increase your oxygen up to 5 or 6 L if your oxygen saturation stays below 89% Keep monitoring your oxygen saturations throughout the day your goal O2 saturation is around 89% and above Discharge Attestations Time Spent in Discharge Care*: greater than 30 min Quality Metrics Clinical Quality Measures [ No reported AMI, CVA or VTE this stay] Coding Level of Care Code Acute Code for Chg Fwd Diagnoses Congestive heart failure I50.9 COPD (chronic obstructive pulmonary disease) J44.9 Pulmonary hypertension I27.20
--- NOTE | 2024-03-22 10:12 | PC.SOCIAL ---
IMM Update pg 2 of IMM updated and reviewed w/ patient. Copy provided and copy dated, initialed and placed in chart.
--- NOTE | 2024-03-22 15:25 | PC.NURSE ---
Called report to SPEEDY Walls at [facility]. [facility] will send transportation.
== END 2024-03-22 18:00 | disposition skilled nursing facility (03) | DRG 291 ==
LOC: ER 03-16 00:13 → CSU 03-16 00:31
PROVIDERS: General Practice; Student in an Organized Health Care Education/Training Program; Admitting Provider Internal Medicine; Emergency Provider Emergency Medicine; PCP Internal Medicine; Visit Provider Internal Medicine
DX: I13.0 Hypertensive heart and chronic kidney disease with heart failure and stage 1 through stage 4 chronic kidney disease, or unspecified chronic kidney disease (principal); I50.31 Acute diastolic (congestive) heart failure; J96.01 Acute respiratory failure with hypoxia; N17.9 Acute kidney failure, unspecified; J44.1 Chronic obstructive pulmonary disease with (acute) exacerbation; E87.1 Hypo-osmolality and hyponatremia; I82.412 Acute embolism and thrombosis of left femoral vein; I82.432 Acute embolism and thrombosis of left popliteal vein; N18.9 Chronic kidney disease, unspecified; E11.22 Type 2 diabetes mellitus with diabetic chronic kidney disease; K59.00 Constipation, unspecified; E87.6 Hypokalemia; I27.20 Pulmonary hypertension, unspecified; E87.5 Hyperkalemia; Z11.52 Encounter for screening for COVID-19; Z87.440 Personal history of urinary (tract) infections; Z75.1 Person awaiting admission to adequate facility elsewhere; Z87.891 Personal history of nicotine dependence
CPT/HCPCS: 36415; 36600; 51702; 71045; 71250; 80048; 80053; 81001; 82803; 83605; 83735; 83880; 83930; 84132; 84145; 84300; 84443; 84484; 85025; 85378; 85610; 85730; 86140; 86403; 87040; 87070; 87086; 87106; 87205; 87426; 93005; 93306; 93970; 94640; 94660; 94664; 94760; 96365; 96372; 96375; 96376; 97110; 97116; 97161; 97166; 97530; 99285; A4222; J0612; J1644; J1815; J1940; J1956; J2919; J3490; J7613; J7626; J7799

== ENCOUNTER 2024-07-15 10:21 | Inpatient (IN) | payer MEDICARE, SELFPAY ==
[2024-07-15] VITALS (86 sets, daily range): BP systolic 77–148; BP diastolic 21–96; PULSE 69–115; RESP 14–33; TEMP 36.4–36.9; O2SAT 87–100; BMI 29.2; BMI 30.5
--- NOTE | 2024-07-15 10:24 | ED_ITS ---
HPI - Back Pain/Injury General: Chief Complaint: Shortness of Breath/Dyspnea Stated Complaint: SOB Time Seen by Provider: 07/15/24 10:21 Source: patient and EMS Mode of arrival: EMS Limitations: no limitations History of Present Illness: Patient is a 79-year-old female with a history of CHF (last echo 03/2024 with an EF of 65%), severe pulmonary hypertension, DVT to her lower extremity, COPD with baseline oxygen requirement of 3L Related Data Home Medications Medication Instructions Recorded Confirmed sertraline 50 mg tablet 50 mg PO DAILY 03/16/24 03/16/24 Previous Rx's Medication Instructions Recorded albuterol sulfate 90 mcg/actuation 2 inh inhalation Q8H PRN shortness 03/22/24 aerosol inhaler of breath or wheezing #6.7 grams apixaban 5 mg tablet (Eliquis) 2.5 mg (1/2 x 5 mg) PO 03/22/24 BID@0900,2100 #120 tabs bumetanide 1 mg tablet 1 mg PO EVERY OTHER DAY #60 tabs 03/22/24 diltiazem HCl 120 mg 120 mg PO BID #60 caps 03/22/24 capsule,extended release 24 hr (Cardizem CD) fluticasone propionate 45 2 inh inhalation BID #12 grams 03/22/24 mcg-salmeterol 21 mcg/actuation HFA inhaler (Advair HFA) potassium chloride 10 mEq 10 meq PO .with bumex every otherd 03/22/24 tablet,extended release day w bumex #30 tabs tiotropium bromide 18 mcg capsule 1 cap inhalation DAILY #60 03/22/24 with inhalation device (Spiriva inhalations with HandiHaler) Allergies Allergy/AdvReac Type Severity Reaction Status Date / Time penicillin G Allergy Severe ALGY-Swell Verified 01/27/21 08:51 Lip/Tongue/Throat Penicillins Allergy Unknown Verified 01/27/21 08:51 PFS ED PFSH: Medical History Diabetes mellitus History of recurrent UTI (urinary tract infection) Surgical History H/O tubal ligation History of tonsillectomy and adenoidectomy Family History Mother , AT AGE 91 Stroke Father , AT 99 No problems noted. Social History Smoking and tobacco/nicotine status: never used tobacco/nicotine Alcohol intake: never Marital status: / Current occupational status: retired Course Vital Signs: Vital signs: Vital Signs Pulse Rate 79 07/15/24 10:21 Respiratory Rate 26 H 07/15/24 10:21 Blood Pressure 117/21 07/15/24 10:21 Pulse Oximetry 93 07/15/24 10:21 Oxygen Delivery Me thod Nasal Cannula 07/15/24 10:21 Oxygen Flow Rate 4 07/15/24 10:21 Discharge Plan Discharge Condition: Stable Prescriptions: No Action sertraline 50 mg tablet 50 mg PO DAILY Eliquis 5 mg Tablet 2.5 mg PO BID@0900,2100 Qty: 120 3RF bumetanide 1 mg tablet 1 mg PO EVERY OTHER DAY Qty: 60 0RF potassium chloride 10 mEq tablet extended release 10 meq PO .with bumex Qty: 30 0RF Spiriva with HandiHaler 18 mcg capsule, w/inhalation device 1 cap inhalation DAILY Qty: 60 3RF Rx Instructions: puncture 1 cap using device; one dose = 2 inhalations Advair HFA 45-21 mcg/actuation HFA aerosol inhaler 2 inh inhalation BID Qty: 12 2RF Cardizem CD 120 mg capsule,extended release 24hr 120 mg PO BID Qty: 60 0RF albuterol sulfate 90 mcg/actuation HFA aerosol inhaler 2 inh inhalation Q8H PRN (Reason: shortness of breath or wheezing) Qty: 6.7 1RF Referrals: Jeff Banegas DO [Primary Care Provider] - Coding Level of Care Code ED 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
--- NOTE | 2024-07-15 10:35 | XRR_ITS ---
PROCEDURE INFORMATION: Exam: XR Chest Exam date and time: 07/15/2024 10:52 AM Age: 79 years old Clinical indication: Shortness of breath; Additional info: SOB TECHNIQUE: Imaging protocol: Radiologic exam of the chest. Views: 1 view. Total images: 3 COMPARISON: CT chest wo con [id number] 03/16/2024 8:44 AM FINDINGS: Lungs: Unremarkable. No consolidation. Pleural spaces: Unremarkable. No pleural effusion. No pneumothorax. Heart/Mediastinum: Unremarkable. No cardiomegaly. Vasculature: Moderate atherosclerotic disease burden is evident. Bones/joints: Orthopedic hardware with plate and screws noted within the right humerus. Osseous structures are unchanged from the prior exam. XR/XR chest 1V portable [id number] IMPRESSION: No acute cardiopulmonary process.
--- NOTE | 2024-07-15 10:40 | XRR_ITS ---
PROCEDURE INFORMATION: Exam: XR Bilateral Hips Exam date and time: 07/15/2024 11:02 AM Age: 79 years old Clinical indication: Injury or trauma; Fall; Blunt trauma (contusions or hematomas); Bilateral; Hip TECHNIQUE: Imaging protocol: Radiologic exam of the bilateral hips. Views: 2 views of hips with pelvis when performed. Total images: 1 COMPARISON: CT abdomen pelvis wo con [id number] 08/09/2020 12:34 AM FINDINGS: Bones/joints: Unremarkable. No acute fracture. Soft tissues: Unremarkable. XR/XR hip BI 3-4V wo/w pel [id number] IMPRESSION: No acute findings.
--- NOTE | 2024-07-15 10:40 | XRR_ITS ---
PROCEDURE INFORMATION: Exam: XR Right Knee Exam date and time: 07/15/2024 10:57 AM Age: 79 years old Clinical indication: Injury or trauma; Fall; Blunt trauma; Knee; Bilateral TECHNIQUE: Imaging protocol: Radiologic exam of the right knee. Views: 3 views. Total images: 1 COMPARISON: CR XR knee RT 3V* [id number] 03/01/2021 10:49 AM FINDINGS: Bones/joints: Moderate marginal osteophytes are noted. Subchondral cyst noted along the medial condyle. No acute fracture nor subluxation. No osseous erosion nor periosteal reaction. Soft tissues: Normal. XR/XR knee RT 3V* [id number] IMPRESSION: Degenerative changes as described above but no acute pathology detected.
--- NOTE | 2024-07-15 10:40 | XRR_ITS ---
PROCEDURE INFORMATION: Exam: XR Left Knee Exam date and time: 07/15/2024 10:54 AM Age: 79 years old Clinical indication: Injury or trauma; Fall; Blunt trauma; Knee; Bilateral TECHNIQUE: Imaging protocol: Radiologic exam of the left knee. Views: 3 views. Total images: 3 COMPARISON: CR XR knee LT 3V* [id number] 03/01/2021 10:49 AM FINDINGS: Bones/joints: Lateral compartment degenerative changes are noted with joint space narrowing and osteophyte formation. Moderate marginal osteophytes are noted. No acute fracture nor subluxation. No osseous erosion nor periosteal reaction. Soft tissues: Normal. XR/XR knee LT 3V* [id number] IMPRESSION: No acute osseous pathology.
[2024-07-15 10:45] LABS: Basophils % 0.3 %; Eosinophils # 0.1 10^3/uL (0.0-0.8); Eosinophils % 1.6 %; Hematocrit 21.6 % (36-47); Lymphocytes # 1.1 10^3/uL (0.8-4.8); Lymphocytes % 15.4 %; Mean Corpuscular HGB Conc 27.8 g/dL (30-55); Mean Corpuscular Hemoglobin 24.7 pg (27-33); Mean Corpuscular Volume 88.9 fl (85-98); Mean Platelet Volume 9.9 fL (7.4-10.4); Monocytes # 0.7 10^3/uL (0.2-0.9); Monocytes % 9.3 %; Neutrophils # 5.14 10^3/uL (1.8-7.7); Neutrophils % 73.1 %; Nucleated Red Blood Cells % 0 %; Platelet Count 231 10^3/cmm (157-399); Red Blood Count 2.43 10^6/uL (3.85-5.65); Red Cell Distribution Width 17.2 % (12.1-15.1); White Blood Count 7.02 10^3/uL (3.29-11.43)
--- NOTE | 2024-07-15 10:46 | W.ED.GENADLT ---
Documented by User: NACHO Grace 07/15/24 14:12 HPI - General Adult General: Chief complaint: Shortness of Breath/Dyspnea Stated complaint: SOB Time Seen by Provider: 07/15/24 10:21 Source: patient and EMS Mode of arrival: EMS Limitations: no limitations History of Present Illness: Patient is a 79-year-old female with a history of CHF (last echo 03/2024 with an EF of 65%), severe pulmonary hypertension, DVT to her lower extremity compliant on Eliquis since March when it was diagnosed, COPD with baseline oxygen requirement of 3L, and chronic kidney disease here via EMS for several complaints. She reportedly fell 4 days ago and states she has pain from my neck all the way down to my toes . She states she has not walked in 4 days following the fall. Ambulance reportedly got called to her house following the fall but she declined transportation to the hospital. EMS states they had helped her back into her chair and she reportedly has not moved from this position in 4 days. She has a friend that helps care for her and reportedly called an ambulance today. Upon arrival, she was not wearing her oxygen and satting at 79% on room air. Patient states she has not felt more so short of breath than normal. She has not had a cough or fever. Her main complaint today is pain. She has noticed swelling to her legs. Onset (ago): day(s) Location: neck, back and lower extremity Severity: severe Pain Consistency: constant Relieving factors: none Exacerbating factors: movement Associated symptoms: Reports dyspnea (chronic-at baseline); Deny chest pain, headache(s), malaise, nausea, rash, palpitations, syncope or vomiting Treatments prior to arrival: none Related Data Home Medications Medication Instructions Recorded Confirmed sertraline 50 mg tablet 50 mg PO DAILY 03/16/24 07/15/24 bumetanide 0.5 mg tablet 0.5 mg PO DAILY 07/15/24 07/15/24 fluticasone propionate 45 2 inh inhalation BID 07/15/24 07/15/24 mcg-salmeterol 21 mcg/actuation HFA inhaler (Advair HFA) mometasone-formoterol HFA 100 2 puff inhalation BID 07/15/24 07/15/24 mcg-5 mcg/actuation aerosol inhaler (Dulera) Previous Rx's Medication Instructions Recorded albuterol sulfate 90 mcg/actuation 2 inh inhalation Q8H PRN shortness 03/22/24 aerosol inhaler of breath or wheezing #6.7 grams apixaban 5 mg tablet (Eliquis) 2.5 mg (1/2 x 5 mg) PO 03/22/24 BID@0900,2100 #120 tabs diltiazem HCl 120 mg 120 mg PO BID #60 caps 03/22/24 capsule,extended release 24 hr (Cardizem CD) potassium chloride 10 mEq 10 meq PO .with bumex every otherd 03/22/24 tablet,extended release day w bumex #30 tabs tiotropium bromide 18 mcg capsule 1 cap inhalation DAILY #60 03/22/24 with inhalation device (Spiriva inhalations with HandiHaler) Allergies Allergy/AdvReac Type Severity Reaction Status Date / Time penicillin G Allergy Severe ALGY-Swell Verified 01/27/21 08:51 Lip/Tongue/Throat Penicillins Allergy Unknown Verified 01/27/21 08:51 Review of Systems Const: Denies: fever(s), chills, body aches, fatigue or malaise Eyes: Denies: change in vision or blurry vision ENMT: Denies: nasal discharge, nasal congestion or sinus pain Card: Reports: edema and swelling of feet/ankles; Denies: chest pain, palpitations, irregular heart rhythm, lightheadedness, syncope or pre-syncope Resp: Reports: dyspnea (chronic-at baseline); Denies: productive cough, non-productive cough, wheezing, pain on inspiration or chest congestion GI: Denies: abdominal pain, nausea, vomiting or diarrhea : Denies: flank pain, difficulty voiding, dysuria, urinary frequency, urinary urgency or urinary hesitancy Musc: Reports: neck pain, back pain, extremity pain, extremity swelling, joint pain and joint swelling; Denies: joint redness or joint warmth Skin/Breast: Denies: rash Neuro: Reports: difficulty walking (due to leg pain); Denies: headache(s), numbness in extremities, weakness in extremities or sensory changes PFSH ED PFSH: Medical History Acute on chronic renal insufficiency Acute hypoxemic respiratory failure Congestive heart failure Acute exacerbation of chronic obstructive airways disease Leukoplakia of bladder COPD (chronic obstructive pulmonary disease) Diabetes mellitus History of recurrent UTI (urinary tract infection) Surgical History History of tonsillectomy and adenoidectomy H/O tubal ligation Family History Mother , AT AGE 91 Stroke Father , AT 99 No problems noted. Social History Smoking and tobacco/nicotine status: never used tobacco/nicotine Alcohol intake: never Marital status: / Current occupational status: retired Physical Exam Const: COMMON NORMALS: patient oriented x3, no limitations, alert and well nourished GENERAL APPEARANCE: cooperative ORIENTATION/CONSCIOUSNESS: Yes awake, Yes oriented to person, Yes oriented to place and Yes oriented to time HENMT: COMMON NORMALS: normocephalic and atraumatic HEAD & SCALP: normal to inspection, normocephalic and atraumatic Eye: GENERAL EYE: appearance normal, both eyes and all related structures Neck/C-Spine: COMMON NORMALS: full ROM GENERAL: Yes normal visual inspection CERVICAL SPINE: Yes cervical ROM normal, Yes pain with cervical ROM, Yes Cervical spine tenderness and No step off deformity Chest: COMMONS NORMALS: normal inspection of the chest and normal palpation of entire chest wall Resp: COMMON NORMALS: normal respiratory effort and clear to auscultation bilaterally AUSCULTATION: clear to auscultation bilaterally OTHER: satting 92-94% with good waveforms on 3-4L O2; will occasionally desat and require additional oxygen Cardio: COMMON NORMALS: regular rate and regular rhythm RATE: regular rate RHYTHM: regular rhythm GI: COMMON NORMALS: Normal to inspection, nondistended, normoactive bowel sounds present, Soft to palpation and non-tender INSPECTION: Yes other (ventral hernia) AUSCULTATION: Yes normoactive bowel sounds PALPATION: Yes Soft to palpation RECTAL EXAM: heme positive stool : COMMON NORMALS: Yes no CVA tenderness BLADDER/KIDNEY EXAM: Yes no CVA tenderness Back/Pelvis: COMMON NORMALS: no CVA tenderness and thoracic and lumbar spine normal to inspection THORACIC SPINE/UPPER BACK: Yes thoracic spinal tenderness LUMBAR SPINE/LOWER BACK: Yes lumbar spinal tenderness PELVIS: Yes buttocks normal SACRUM: no tenderness COCCYX: no tenderness Extremity: COMMON NORMALS: capillary refill normal NARRATIVE EXTREMITY EXAM: reporting tenderness everywhere ; legs with symmetrical non-pitting edema; no redness/warmth; no bony deformities; has good passive ROM of ankles; she can somewhat flex her knees although states this hurts; overall exam was difficulty because she cannot localize any of her pains-just states I hurt all the way down from my neck to my toes GENERAL: Yes normal exam except as noted Neuro: COMMON NORMALS: patient oriented x3, moves all extremities, no focal motor deficits and no sensory deficits noted SENSORIUM/ORIENTATION: Yes alert, Yes oriented to person, Yes oriented to place and Yes oriented to time GAIT: Yes Unable to assess gait Skin: COMMON NORMALS: no rashes or lesions noted GENERAL SKIN EXAM: no rashes or lesions noted Course Vital Signs: Vital signs: Vital Signs Pulse Rate 75 07/15/24 14:00 Respiratory Rate 22 H 07/15/24 14:00 Blood Pressure 96/32 07/15/24 14:00 Pulse Oximetry 90 07/15/24 14:00 Oxygen Delivery Me thod Nasal Cannula 07/15/24 10:21 Oxygen Flow Rate 4 07/15/24 10:21 [facility] - General Adult Medical Decision Making Patient is 79-year-old female with an extensive past medical history here via EMS due to a fall 4 days ago, lower extremity swelling, and worsening chronic dyspnea. States she normally wears 3 to 4 L of oxygen at home. She was found by EMS not wearing her oxygen at 79% on room air. She has required 4 to 5 L while here. Her CXR is unremarkable. Her BNP is over 10,000. She does have a history of CHF and severe pulmonary hypertension. Blood pressure has been soft throughout her stay. She has had IV fluids ordered as well as 2 units PRBC due to hemoglobin of 6.0. Hemoccult was positive. I did speak to Dr. Kennedy who will consult on patient while in the hospital for evaluation for endoscopy/colonoscopy. She has chronic kidney disease. Creatinine today seems to be at baseline. Patient was complaining of diffuse pain following her fall. Very difficult time getting imaging as she cannot lay flat due to her breathing. CT scans were difficult to obtain due to her anxiety and breathing as well. XR of her cervical spine was unremarkable. We were able to get x-rays of her hips, pelvis, knees which were unremarkable. CT scan of her chest/abdomen and pelvis ordered due to the fall/trauma, low hemoglobin, on Eliquis. No evidence for bleeding. She does have right hydroureteronephrosis and a marked dilatation of her bladder. Low catheter was placed and seems to be draining appropriately. I have spoken to Dr. Baldwin who will admit patient to ICU. Dr. Moulton has been aware of patient and has followed along throughout her ED stay and has physically assessed her as well. Will place admit orders to ICU. Medical Records I reviewed the patient's medical records. Lab Data I reviewed the patient's lab results. 07/15/24 10:38 07/15/24 10:38 Radiology Impressions Chest X-Ray 07/15/24 10:35 IMPRESSION: No acute cardiopulmonary process. Hip/Pelvis X-Ray 07/15/24 10:40 IMPRESSION: No acute findings. Knee X-Ray 07/15/24 10:40 IMPRESSION: No acute osseous pathology. Chest/Abdomen/Pelvis CT 07/15/24 11:39 IMPRESSION: 1. High-grade RIGHT hydroureteronephrosis. Hydronephrosis and hydroureter are new since 2020. Patient has known severe atrophy of the RIGHT kidney. No obstructing calcification is noted in the distal RIGHT ureter. 2. Marked dilatation of the urinary bladder. Relieving the distended urinary bladder may relieve the obstructed RIGHT collecting system. Otherwise possibility of noncalcified stone or mass should be considered causing the obstruction. 3. Ventral abdominal wall hernia contains a loop of transverse colon but no obstruction. 4. Moderate cardiomegaly. 5. No soft tissue hematomas. No acute fractures identified. Cervical Spine X-Ray 07/15/24 13:05 IMPRESSION: No acute cervical spine pathology. Laboratory Results WBC 7.02 10^3/uL (3.29-11.43) 07/15/24 10:38 RBC 2.43 10^6/uL (3.85-5.65) L 07/15/24 10:38 Hgb 6.00 g/dL (11.27-16.99) L* 07/15/24 10:38 Hct 21.6 % (36-47) L 07/15/24 10:38 MCV 88.9 fl (85-98) 07/15/24 10:38 MCH 24.7 pg (27-33) L 07/15/24 10:38 MCHC 27.8 g/dL (30-55) L 07/15/24 10:38 RDW 17.2 % (12.1-15.1) H 07/15/24 10:38 Plt Count 231 10^3/cmm (157-399) 07/15/24 10:38 MPV 9.9 fL (7.4-10.4) 07/15/24 10:38 Neut % (Auto) 73.1 % 07/15/24 10:38 Lymph % (Auto) 15.4 % 07/15/24 10:38 [place] % (Auto) 9.3 % 07/15/24 10:38 Eos % (Auto) 1.6 % 07/15/24 10:38 Baso % (Auto) 0.3 % 07/15/24 10:38 Neut # (Auto) 5.14 10^3/uL (1.8-7.7) 07/15/24 10:38 Lymph # (Auto) 1.1 10^3/uL (0.8-4.8) 07/15/24 10:38 [place] # (Auto) 0.7 10^3/uL (0.2-0.9) 07/15/24 10:38 Eos # (Auto) 0.1 10^3/uL (0.0-0.8) 07/15/24 10:38 Baso # (Auto) 0.0 10^3/uL (0.0-0.1) 07/15/24 10:38 Nucleated RBC % (auto) 0 % 07/15/24 10:38 Nucleated RBCs # 0.0 /100WBC 07/15/24 10:38 Specimen Type Arterial 07/15/24 10:50 Sample Site Brachial, right 07/15/24 10:50 ABG pH 7.42 (7.35-7.45) 07/15/24 10:50 ABG pCO2 32.6 mmHg (35-45) L 07/15/24 10:50 ABG pO2 55.0 mmHg (80.0-100.0) L 07/15/24 10:50 ABG HCO3 21.1 mmol/L (22-26) L 07/15/24 10:50 ABG O2 Saturation 90.5 07/15/24 10:50 ABG Base Excess -3.1 mmol/L (-2.0-2.0) L 07/15/24 10:50 Zackary Test Pos 07/15/24 10:50 A-a O2 Gradient 7.0 mmHg (5-10) 07/15/24 10:50 Hematocrit 17.9 % (37-47) L 07/15/24 10:50 Hgb O2 Saturation 87.4 % (95-100) L 07/15/24 10:50 Carboxyhemoglobin 2.2 %THgb (0.4-20.1) 07/15/24 10:50 Methemoglobin 1.2 % (0.4-1.5) 07/15/24 10:50 Total Hemoglobin 5.9 g/dL (12-16) L 07/15/24 10:50 Sodium 143.0 mmol/L (131-143) 07/15/24 10:50 Potassium 4.3 mmol/L (3.5-5.0) 07/15/24 10:50 Glucose 135.0 mg/dL (70-115) H 07/15/24 10:50 Ionized Calcium 1.1 mmol/L (1.1-1.4) 07/15/24 10:50 O2 Delivery Device Nc 07/15/24 10:50 O2 Liters/Min 3.0 % 07/15/24 10:50 Vp Respiratory ID Broma 07/15/24 10:50 Sodium 140 mmol/L (136-145) 07/15/24 10:38 Potassium 4.5 mmol/L (3.5-5.1) 07/15/24 10:38 Chloride 103 mmol/L (98-107) 07/15/24 10:38 Carbon Dioxide 20 mmol/L (22-29) L 07/15/24 10:38 Anion Gap 21.5 (5-19) H 07/15/24 10:38 BUN 66 mg/dL (8-23) H 07/15/24 10:38 Creatinine 2.6 mg/dL (0.5-0.9) H 07/15/24 10:38 GFR Calculation Not Reportable 07/15/24 10:38 Glucose 135 mg/dL (65-115) H 07/15/24 10:38 Calculated Osmolality 311 mOsm/kg (285-295) H 07/15/24 10:38 Lactic Acid 2.2 mmol/L (0.5-2.2) 07/15/24 10:38 Calcium 8.5 mg/dL (8.5-10.5) 07/15/24 10:38 Total Bilirubin 0.4 mg/dL (0.15-1.2) 07/15/24 10:38 AST 36 U/L (0-32) H 07/15/24 10:38 ALT 24 U/L (0-33) 07/15/24 10:38 Alkaline Phosphatase 81 U/L (35-105) 07/15/24 10:38 Creatine Kinase 336 U/L (26-192) H* 07/15/24 10:38 Troponin T Baseline 92 ng/L (0-10) H 07/15/24 10:38 Troponin T 120 Minute 84.92 ng/L (0-10) H 07/15/24 12:32 Delta Troponin T -7.08 ABS# (0-10) L 07/15/24 12:32 NT-Pro-B Natriuret Pep 82661 pg/mL (0-450) H 07/15/24 10:38 Total Protein 6.2 g/dL (6.6-8.7) L 07/15/24 10:38 Albumin 3.8 g/dL (3.5-5.2) 07/15/24 10:38 Globulin 2.4 g/dL (1.3-4.6) 07/15/24 10:38 Procalcitonin 0.21 ng/mL (0-0.5) 07/15/24 10:38 Amorphous Sediment Not Reportable 07/15/24 13:59 Crossmatch See Detail 07/15/24 14:10 All radiology interpretation(s) finalized by discharge Discharge Plan Discharge Patient Disposition: Admitted As Inpatient Admit Provider: Rudy Day Clinical Impression: Upper GI bleed, Urinary retention, Anemia, Pulmonary hypertension Condition: Stable Coding Level of Care Code ED Lumber Trimmer for Chg Fwd Documented by User: Malka Moulton MD 07/15/24 14:20 HPI - General Adult General: Chief complaint: Shortness of Breath/Dyspnea Stated complaint: SOB Time Seen by Provider: 07/15/24 10:21 Related Data Home Medications Medication Instructions Recorded Confirmed sertraline 50 mg tablet 50 mg PO DAILY 03/16/24 07/15/24 bumetanide 0.5 mg tablet 0.5 mg PO DAILY 07/15/24 07/15/24 fluticasone propionate 45 2 inh inhalation BID 07/15/24 07/15/24 mcg-salmeterol 21 mcg/actuation HFA inhaler (Advair HFA) mometasone-formoterol HFA 100 2 puff inhalation BID 07/15/24 07/15/24 mcg-5 mcg/actuation aerosol inhaler (Dulera) Previous Rx's Medication Instructions Recorded albuterol sulfate 90 mcg/actuation 2 inh inhalation Q8H PRN shortness 03/22/24 aerosol inhaler of breath or wheezing #6.7 grams apixaban 5 mg tablet (Eliquis) 2.5 mg (1/2 x 5 mg) PO 03/22/24 BID@0900,2100 #120 tabs diltiazem HCl 120 mg 120 mg PO BID #60 caps 03/22/24 capsule,extended release 24 hr (Cardizem CD) potassium chloride 10 mEq 10 meq PO .with bumex every otherd 03/22/24 tablet,extended release day w bumex #30 tabs tiotropium bromide 18 mcg capsule 1 cap inhalation DAILY #60 03/22/24 with inhalation device (Spiriva inhalations with HandiHaler) Allergies Allergy/AdvReac Type Severity Reaction Status Date / Time penicillin G Allergy Severe ALGY-Swell Verified 01/27/21 08:51 Lip/Tongue/Throat Penicillins Allergy Unknown Verified 01/27/21 08:51 [facility] ED PFSH: Medical History Acute on chronic renal insufficiency Acute hypoxemic respiratory failure Congestive heart failure Acute exacerbation of chronic obstructive airways disease Leukoplakia of bladder COPD (chronic obstructive pulmonary disease) Diabetes mellitus History of recurrent UTI (urinary tract infection) Surgical History History of tonsillectomy and adenoidectomy H/O tubal ligation Family History Mother , AT AGE 91 Stroke Father , AT 99 No problems noted. Social History Smoking and tobacco/nicotine status: never used tobacco/nicotine Alcohol intake: never Marital status: / Current occupational status: retired Course Vital Signs: Vital signs: Vital Signs Pulse Rate 75 07/15/24 14:00 Respiratory Rate 22 H 07/15/24 14:00 Blood Pressure 96/32 07/15/24 14:00 Pulse Oximetry 90 07/15/24 14:00 Oxygen Delivery Me thod Nasal Cannula 07/15/24 10:21 Oxygen Flow Rate 4 07/15/24 10:21 [facility] - General Adult Medical Decision Making Patient is 79-year-old female with an extensive past medical history here via EMS due to a fall 4 days ago, lower extremity swelling, and worsening chronic dyspnea. States she normally wears 3 to 4 L of oxygen at home. She was found by EMS not wearing her oxygen at 79% on room air. She has required 4 to 5 L while here. Her CXR is unremarkable. Her BNP is over 10,000. She does have a history of CHF and severe pulmonary hypertension. Blood pressure has been soft throughout her stay. She has had IV fluids ordered as well as 2 units PRBC due to hemoglobin of 6.0. Hemoccult was positive. I did speak to Dr. Kennedy who will consult on patient while in the hospital for evaluation for endoscopy/colonoscopy. She has chronic kidney disease. Creatinine today seems to be at baseline. Patient was complaining of diffuse pain following her fall. Very difficult time getting imaging as she cannot lay flat due to her breathing. CT scans were difficult to obtain due to her anxiety and breathing as well. XR of her cervical spine was unremarkable. We were able to get x-rays of her hips, pelvis, knees which were unremarkable. CT scan of her chest/abdomen and pelvis ordered due to the fall/trauma, low hemoglobin, on Eliquis. No evidence for bleeding. She does have right hydroureteronephrosis and a marked dilatation of her bladder. Low catheter was placed and seems to be draining appropriately. I have spoken to Dr. Baldwin who will admit patient to ICU. Dr. Moulton has been aware of patient and has followed along throughout her ED stay and has physically assessed her as well. Will place admit orders to ICU. I saw and evaluated patient with above midlevel agree with her history and physical patient was hypotensive likely due to anemia her blood pressure here is improving after fluids and transfusion her blood pressure is currently 102/44 I did discuss possibly central line with patient she stated she went to see if her blood pressure improved with the blood products as she does not like to lay flat at all. Will admit to the ICU at this time Lab Data 07/15/24 10:38 07/15/24 10:38 Radiology Impressions Chest X-Ray 07/15/24 10:35 IMPRESSION: No acute cardiopulmonary process. Hip/Pelvis X-Ray 07/15/24 10:40 IMPRESSION: No acute findings. Knee X-Ray 07/15/24 10:40 IMPRESSION: No acute osseous pathology. Chest/Abdomen/Pelvis CT 07/15/24 11:39 IMPRESSION: 1. High-grade RIGHT hydroureteronephrosis. Hydronephrosis and hydroureter are new since 2020. Patient has known severe atrophy of the RIGHT kidney. No obstructing calcification is noted in the distal RIGHT ureter. 2. Marked dilatation of the urinary bladder. Relieving the distended urinary bladder may relieve the obstructed RIGHT collecting system. Otherwise possibility of noncalcified stone or mass should be considered causing the obstruction. 3. Ventral abdominal wall hernia contains a loop of transverse colon but no obstruction. 4. Moderate cardiomegaly. 5. No soft tissue hematomas. No acute fractures identified. Cervical Spine X-Ray 07/15/24 13:05 IMPRESSION: No acute cervical spine pathology. Laboratory Results WBC 7.02 10^3/uL (3.29-11.43) 07/15/24 10:38 RBC 2.43 10^6/uL (3.85-5.65) L 07/15/24 10:38 Hgb 6.00 g/dL (11.27-16.99) L* 07/15/24 10:38 Hct 21.6 % (36-47) L 07/15/24 10:38 MCV 88.9 fl (85-98) 07/15/24 10:38 MCH 24.7 pg (27-33) L 07/15/24 10:38 MCHC 27.8 g/dL (30-55) L 07/15/24 10:38 RDW 17.2 % (12.1-15.1) H 07/15/24 10:38 Plt Count 231 10^3/cmm (157-399) 07/15/24 10:38 MPV 9.9 fL (7.4-10.4) 07/15/24 10:38 Neut % (Auto) 73.1 % 07/15/24 10:38 Lymph % (Auto) 15.4 % 07/15/24 10:38 [place] % (Auto) 9.3 % 07/15/24 10:38 Eos % (Auto) 1.6 % 07/15/24 10:38 Baso % (Auto) 0.3 % 07/15/24 10:38 Neut # (Auto) 5.14 10^3/uL (1.8-7.7) 07/15/24 10:38 Lymph # (Auto) 1.1 10^3/uL (0.8-4.8) 07/15/24 10:38 [place] # (Auto) 0.7 10^3/uL (0.2-0.9) 07/15/24 10:38 Eos # (Auto) 0.1 10^3/uL (0.0-0.8) 07/15/24 10:38 Baso # (Auto) 0.0 10^3/uL (0.0-0.1) 07/15/24 10:38 Nucleated RBC % (auto) 0 % 07/15/24 10:38 Nucleated RBCs # 0.0 /100WBC 07/15/24 10:38 Specimen Type Arterial 07/15/24 10:50 Sample Site Brachial, right 07/15/24 10:50 ABG pH 7.42 (7.35-7.45) 07/15/24 10:50 ABG pCO2 32.6 mmHg (35-45) L 07/15/24 10:50 ABG pO2 55.0 mmHg (80.0-100.0) L 07/15/24 10:50 ABG HCO3 21.1 mmol/L (22-26) L 07/15/24 10:50 ABG O2 Saturation 90.5 07/15/24 10:50 ABG Base Excess -3.1 mmol/L (-2.0-2.0) L 07/15/24 10:50 Zackary Test Pos 07/15/24 10:50 A-a O2 Gradient 7.0 mmHg (5-10) 07/15/24 10:50 Hematocrit 17.9 % (37-47) L 07/15/24 10:50 Hgb O2 Saturation 87.4 % (95-100) L 07/15/24 10:50 Carboxyhemoglobin 2.2 %THgb (0.4-20.1) 07/15/24 10:50 Methemoglobin 1.2 % (0.4-1.5) 07/15/24 10:50 Total Hemoglobin 5.9 g/dL (12-16) L 07/15/24 10:50 Sodium 143.0 mmol/L (131-143) 07/15/24 10:50 Potassium 4.3 mmol/L (3.5-5.0) 07/15/24 10:50 Glucose 135.0 mg/dL (70-115) H 07/15/24 10:50 Ionized Calcium 1.1 mmol/L (1.1-1.4) 07/15/24 10:50 O2 Delivery Device Nc 07/15/24 10:50 O2 Liters/Min 3.0 % 07/15/24 10:50 Vp Respiratory ID Broma 07/15/24 10:50 Sodium 140 mmol/L (136-145) 07/15/24 10:38 Potassium 4.5 mmol/L (3.5-5.1) 07/15/24 10:38 Chloride 103 mmol/L (98-107) 07/15/24 10:38 Carbon Dioxide 20 mmol/L (22-29) L 07/15/24 10:38 Anion Gap 21.5 (5-19) H 07/15/24 10:38 BUN 66 mg/dL (8-23) H 07/15/24 10:38 Creatinine 2.6 mg/dL (0.5-0.9) H 07/15/24 10:38 GFR Calculation Not Reportable 07/15/24 10:38 Glucose 135 mg/dL (65-115) H 07/15/24 10:38 Calculated Osmolality 311 mOsm/kg (285-295) H 07/15/24 10:38 Lactic Acid 2.2 mmol/L (0.5-2.2) 07/15/24 10:38 Calcium 8.5 mg/dL (8.5-10.5) 07/15/24 10:38 Total Bilirubin 0.4 mg/dL (0.15-1.2) 07/15/24 10:38 AST 36 U/L (0-32) H 07/15/24 10:38 ALT 24 U/L (0-33) 07/15/24 10:38 Alkaline Phosphatase 81 U/L (35-105) 07/15/24 10:38 Creatine Kinase 336 U/L (26-192) H* 07/15/24 10:38 Troponin T Baseline 92 ng/L (0-10) H 07/15/24 10:38 Troponin T 120 Minute 84.92 ng/L (0-10) H 07/15/24 12:32 Delta Troponin T -7.08 ABS# (0-10) L 07/15/24 12:32 NT-Pro-B Natriuret Pep 45861 pg/mL (0-450) H 07/15/24 10:38 Total Protein 6.2 g/dL (6.6-8.7) L 07/15/24 10:38 Albumin 3.8 g/dL (3.5-5.2) 07/15/24 10:38 Globulin 2.4 g/dL (1.3-4.6) 07/15/24 10:38 Procalcitonin 0.21 ng/mL (0-0.5) 07/15/24 10:38 Amorphous Sediment Not Reportable 07/15/24 13:59 Crossmatch See Detail 07/15/24 14:10 Critical Care Time Critical Care Time: Critical Care Time: Yes Total Critical Care Time: 75 Attestation: The high probability of a clinically significant, sudden or life threatening deterioration of the patient's gi system(s) required my full and direct attention, intervention and personal management. The critical care time is as shown. This time is in addition to time spent performing any reported procedures but includes the following: [x] Data and vital sign review and interpretation [x] Patient assessment, examination and intervention [x] Documentation [x] Medication orders and management Discharge Plan Discharge Patient Disposition: Admitted As Inpatient Admit Provider: Rudy Day Clinical Impression: Upper GI bleed, Urinary retention, Anemia, Pulmonary hypertension Condition: Stable Coding Level of Care Code ED Lumber Trimmer for Macarena Giang
--- NOTE | 2024-07-15 10:47 | ECG_ITS ---
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 Measurements Intervals Bourg Rate: 74 P: 67 OR: 153 QRS: 88 QRSD: 102 T: 47 QT: 399 QTc: 444 Interpretive Statements SINUS RHYTHM WITH SINUS ARRHYTHMIA LOW QRS VOLTAGE IN PRECORDIAL LEADS [QRS DEFLECTION < 1.0 mV IN CHEST LEADS] MODERATE T-WAVE ABNORMALITY, CONSIDER INFERIOR ISCHEMIA [-0.1+ mV T-WAVE IN II/aVF] Compared to ECG 03/15/2024 22:30:53 T-wave abnormality now present Possible ischemia now present Right-axis deviation no longer present Electronically Signed On 07-18-2024 21:31:53 [employer] by Bin Soria M.D. [id number]
[2024-07-15 11:04] LABS: Troponin(5th) Baseline 92 ng/L (0-10)
[2024-07-15 11:05] LABS: ABG PCO2 32.6 mmHg (35-45); ABG PH Result 7.42 (7.35-7.45); Arterial Blood Gas Hematocrit 17.9 % (37-47); Base Excess ABG -3.1 mmol/L (-2.0-2.0); Blood Gas Allen Test Pos; Blood Gas Operator Identificat BROMA; Blood Gas Sample Site Brachial, right; Blood Gas Sample Type Arterial; Carboxyhemoglobin 2.2 %THgb (0.4-20.1); HCO3 ABG 21.1 mmol/L (22-26); HGB O2 Sat 87.4 % (95-100); Ionized Calcium Level - ABG 1.1 mmol/L (1.1-1.4); Methemoglobin 1.2 % (0.4-1.5); Oxygen Device NC; Oxygen Saturation ABG 90.5; Potassium Level - ABG 4.3 mmol/L (3.5-5.0); Total Hemoglobin 5.9 g/dL (12-16)
[2024-07-15 11:12] LABS: NT Pro B Type Natriuretic Pept 10703 pg/mL (0-450); Procalcitonin 0.21 ng/mL (0-0.5)
[2024-07-15] MEDS: ipratropium-albuterol 3 mL Neb INHALATION (11:20)
[2024-07-15 11:23] LABS: Alanine Aminotransferase 24 U/L (0-33); Albumin Level 3.8 g/dL (3.5-5.2); Alkaline Phosphatase 81 U/L (35-105); Anion Gap 21.5 (5-19); Aspartate Amino Transferase 36 U/L (0-32); Blood Urea Nitrogen 66 mg/dL (8-23); Calcium 8.5 mg/dL (8.5-10.5); Carbon Dioxide 20 mmol/L (22-29); Chloride 103 mmol/L (98-107); Creatinine Clr Calc Pharmacy 16.3665; Globulin 2.4 g/dL (1.3-4.6); Glucose 135 mg/dL (65-115); Osmolality Calculated 311 mOsm/kg (285-295); Potassium 4.5 mmol/L (3.5-5.1); Sodium 140 mmol/L (136-145); Total Bilirubin 0.4 mg/dL (0.15-1.2); Total Protein 6.2 g/dL (6.6-8.7)
[2024-07-15] MEDS: sodium chloride 0.9% 1,000 ML 999 ML IV (11:33)
[2024-07-15] MEDS: methylPREDNISolone sod succ 125 mg/2 mL INJ IVP (11:34)
--- NOTE | 2024-07-15 11:39 | CT_ITS ---
WS: [id number] CT CHEST, ABDOMEN AND PELVIS WITHOUT CONTRAST HISTORY: fall, low hemoglobin on blood thinners TECHNIQUE: Contiguous 5 mm axial imaging performed through the chest, abdomen and pelvis without IV c ontrast, oral contrast has Been provided. Coronal and sagittal reformats chest. Coronal and sagittal reformats through the abdom en and pelvis. All CT scans at [facility] use at least one of these dose optimization techniq ues: automated exposure control; mA and/or kV adjustment per patient size (includes targeted exams wh ere dose is matched to clinical indication); or iterative reconstruction. CONTRAST: None DLP: 886.79 mGy.cm COMPARISON: 03/16/2024, 08/09/[address]: Chronic emphysema. No mass or pulmonary nodule. Dependent changes at the lung bases along w ith motion artifact. No pneumonia. Atherosclerosis aorta. Aberrant RIGHT subclavian artery. Mild dila tation of the pulmonary artery. Moderate cardiomegaly. Small hiatal hernia. No soft tissue abnormalit ies. Increase in thoracic kyphosis. Abdomen CT: Normal size liver. Cholelithiasis. Gallbladder is very slightly overly distended. Normal spleen with granulomata. Marked pancreatic atrophy. Moderate atherosclerosis aorta. New marked RIGHT hydroureteronephrosis. Ureter is dilated to the urinary bladder. Severe atrophy of t he RIGHT kidney in the cortex. Atrophy was present on the prior study from 2019 but the hydronephrosi s is new. No obstructing stone at the distal ureter but there are several hyperdense foci within the bladder. Some of these are within a nondependent location. No LEFT hydronephrosis. No GI tract obstruction. Ventral abdominal wall hernia contains part of the transverse colon. No obst ruction. Pelvic CT: Urinary bladder is overly distended. This overdistention may in part be related to hydrone phrosis on the RIGHT. No obstructing calcification is noted at the UV junction. There are a few dense foci within the bladder wall. These may be small calcifications. Less likely areas of hemorrhage. Moderate levoscoliosis to the LEFT of the lumbar spine. Advanced degenerative changes in the lumbar s pine. No acute fractures. No soft tissue hematomas. CT/[place] [id number] IMPRESSION: 1. High-grade RIGHT hydroureteronephrosis. Hydronephrosis and hydroureter are new since 2020. Patient has known severe atrophy of the RIGHT kidney. No obstru cting calcification is noted in the distal RIGHT ureter. 2. Marked dilatation of the urinary bladder. Relieving the distended urinary b ladder may relieve the obstructed RIGHT collecting system. Otherwise possibilit y of noncalcified stone or mass should be considered causing the obstruction. 3. Ventral abdominal wall hernia contains a loop of transverse colon but no ob struction. 4. Moderate cardiomegaly. 5. No soft tissue hematomas. No acute fractures identified.
[2024-07-15] MEDS: pantoprazole 40 mg SDV 80 MG IVP (12:22)
--- NOTE | 2024-07-15 12:36 | ECG_ITS ---
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 Measurements Intervals Cyclone Rate: 73 P: 76 GA: 167 QRS: 94 QRSD: 89 T: 59 QT: 359 QTc: 398 Interpretive Statements SINUS RHYTHM WITH SINUS ARRHYTHMIA BORDERLINE RIGHT AXIS DEVIATION [QRS AXIS > 90] LOW QRS VOLTAGE IN PRECORDIAL LEADS [QRS DEFLECTION < 1.0 mV IN CHEST LEADS] NONSPECIFIC T-WAVE ABNORMALITY Compared to ECG 07/15/2024 10:47:02 Possible ischemia no longer present T-wave abnormality still present Electronically Signed On 07-21-2024 21:03:14 [employer] by Bin Soria M.D. [id number]
[2024-07-15 12:42] LABS: Lactic Sepsis W/Reflex 2.2 mmol/L (0.5-2.2)
[2024-07-15] MEDS: LORazepam 2 mg/mL INJ 1 mL 0.25 MG IVP (12:43)
[2024-07-15 12:47] LABS: Creatine Phosphokinase 336 U/L (26-192)
--- NOTE | 2024-07-15 13:05 | XRR_ITS ---
PROCEDURE INFORMATION: Exam: XR Cervical Spine Exam date and time: 07/15/2024 1:15 PM Age: 79 years old Clinical indication: Injury or trauma; Fall; Blunt trauma; Additional info: Fall; Refused CT scan TECHNIQUE: Imaging protocol: Radiologic exam of the cervical spine. Views: 2 or 3 views. Total images: 994 COMPARISON: [place] [id number] 07/15/2024 12:58 PM FINDINGS: Bones/joints: Facet joint degenerative changes are present. C4-7 degenerative disc disease with disc space narrowing and osteophyte formation. Vertebral body heights are maintained. No evidence of spondylolisthesis. Soft tissues: No prevertebral soft tissue swelling. Vasculature: Moderate atherosclerotic disease burden is evident. XR/XR cervical spine 3V* [id number] IMPRESSION: No acute cervical spine pathology.
[2024-07-15 13:06] LABS: Troponin 5 2HR 84.92 ng/L (0-10)
[2024-07-15 13:09] LABS: Troponin 5 2HR Delta -7.08 ABS# (0-10)
[2024-07-15 14:12] LABS: Bilirubin Urine Negative (Negative); Blood Urine 2+ (Negative); Glucose Urine UA Negative (Normal); Ketones Urine Trace (Negative); Leukocyte Esterase Urine 3+ (Negative); Nitrate Urine Negative (Negative); Protein Urine 3+ (Negative); Specific Gravity, Urine 1.016 (1.005-1.030); Urine Appearance Turbid (CLEAR); Urine Color Yellow (Yellow); Urobilinogen Urine 0.2 mg/dL (Negative); pH Urine 8.5 (5-7)
[2024-07-15 14:16] LABS: Reflex Lactate Order REFLEX LACTIC ORDERD
--- NOTE | 2024-07-15 14:17 | P.HP_ITS ---
Providers/Chief Complaint 2 Admitting Physician: Rudy Day MD Primary Care Provider: Jeff Banegas DO Chief Complaint: SOB History of Present Illness Susan Resendiz is a 79 year old female with past medical history of hypertension, pulmonary hypertension, COPD, chronically on 3 L of oxygen supplementation, left lower limb DVT presents to the ER today because of generalized weakness in both her lower limbs getting worse over last 2 to 3 days, worsening difficulty in breathing over the last 4 to 5 days, worsening swelling in her lower limbs for last 4 to 5 days. As per the patient she fell around 2 days ago at that time EMS had requested her to come to the ER but she declined. Over the last day she has not been able to stand up or move hence she decided to come to ER today. She denies any nausea, vomiting, headache, dizziness, chest pain, diarrhea, dysuria. Patient has not noticed any decrease in her urine output than usual. The ER patient was found to be hypotensive with blood pressures down to 80 systolics for which she required a liter of fluid bolus after which it improved to 100 systolics, hemoglobin of 6, creatinine of 2.6. Patient underwent CT abdomen pelvis and chest after receiving 0.25 of IV Ativan. Review of Systems 2 General: Reports: 10 or more systems reviewed and unremarkable except in HPI and below Const: Denies: fever(s), chills, body aches, change in appetite, change in weight, malaise, night sweats, diaphoresis, change in sleep pattern, daytime sleepiness or snoring Eyes: Denies: change in vision, blurry vision, photophobia, eye discomfort or eye discharge ENMT: Denies: throat pain, enlarged tonsils, hoarseness, mouth pain, oral sores, dry mouth, tinnitus, nasal congestion or post nasal drip Card: Denies: chest pain, palpitations, irregular heart rhythm, edema, swelling of feet/ankles, lightheadedness, syncope, pre-syncope, dyspnea on exertion, orthopnea, leg pain with exertion or acrocyanosis Resp: Denies: dyspnea, productive cough, non-productive cough, wheezing, stridor, pain on inspiration, change in phlegm color, hemoptysis or chest congestion GI: Denies: abdominal pain, nausea, vomiting, hematemesis, coffee ground emesis, dysphagia, heartburn, diarrhea, constipation, bloating, GI cramping, change in bowel habits, pain on defecation, hematochezia or melena : Denies: flank pain, dysuria, urinary frequency, urinary urgency, urinary hesitancy, nocturia or hematuria Musc: Denies: neck pain, back pain, extremity pain, joint pain, joint swelling, joint redness, joint stiffness or limited range of motion Neuro: Denies: headache(s), numbness in extremities, weakness in extremities, sensory changes, lack of coordination, difficulty walking, frequent falls, dizziness, vertigo, confusion, Slurred speech present, difficulty communicating thoughts or seizure-like activity Psych: Denies: anxiety, depression, mood swings, panic attacks, hopelessness or irritability Endo: Denies: polyuria, polydipsia, tired all the time, cold intolerance, excessive sweating, flushing or heat intolerance Ger/Lymph: Denies: easy bruising or easy bleeding All/Imm: Denies: tongue swelling, facial swelling or acute wheezing Medications/Allergies Home Medications Medication Instructions Recorded Confirmed Last Taken Type sertraline 50 mg tablet 50 mg PO DAILY 03/16/24 07/15/24 Unknown History albuterol sulfate 90 mcg/actuation 2 inh inhalation Q8H PRN shortness 03/22/24 07/15/24 Unknown Rx aerosol inhaler of breath or wheezing #6.7 grams apixaban 5 mg tablet (Eliquis) 2.5 mg (1/2 x 5 mg) PO 03/22/24 07/15/24 Unknown Rx BID@0900,2100 #120 tabs diltiazem HCl 120 mg 120 mg PO BID #60 caps 03/22/24 07/15/24 Unknown Rx capsule,extended release 24 hr (Cardizem CD) potassium chloride 10 mEq 10 meq PO .with bumex every otherd 03/22/24 07/15/24 Unknown Rx tablet,extended release day w bumex #30 tabs tiotropium bromide 18 mcg capsule 1 cap inhalation DAILY #60 03/22/24 07/15/24 Unknown Rx with inhalation device (Spiriva inhalations with HandiHaler) bumetanide 0.5 mg tablet 0.5 mg PO DAILY 07/15/24 07/15/24 Unknown History fluticasone propionate 45 2 inh inhalation BID 07/15/24 07/15/24 Unknown History mcg-salmeterol 21 mcg/actuation HFA inhaler (Advair HFA) mometasone-formoterol HFA 100 2 puff inhalation BID 07/15/24 07/15/24 Unknown History mcg-5 mcg/actuation aerosol inhaler (Dulera) Allergies Allergy/AdvReac Type Severity Reaction Status Date / Time penicillin G Allergy Severe ALGY-Swell Verified 01/27/21 08:51 Lip/Tongue/Throat Penicillins Allergy Unknown Verified 01/27/21 08:51 PFSH Acute 2 PFSH: Medical History (Updated 07/15/24 @ 15:09 by Rudy Day MD) Urinary tract infection Deep vein thrombosis, lower left extremity 03/17- Nonocclusive thrombus distal left superficial femoral vein and popliteal vein. CKD (chronic kidney disease) Acute hypoxemic respiratory failure COPD (chronic obstructive pulmonary disease) Acute on chronic renal insufficiency Congestive heart failure Acute exacerbation of chronic obstructive airways disease Leukoplakia of bladder Diabetes mellitus History of recurrent UTI (urinary tract infection) Surgical History History of tonsillectomy and adenoidectomy H/O tubal ligation Family History Mother , AT AGE 91 Stroke Father , AT 99 No problems noted. Social History Smoking and tobacco/nicotine status: never used tobacco/nicotine Alcohol intake: never Marital status: / Current occupational status: retired Vitals/I&O/Wt Last Vital Signs Pulse 75 07/15/24 14:00 Resp 22 H 07/15/24 14:00 BP 96/32 07/15/24 14:00 Pulse Ox 90 07/15/24 14:00 O2 Del Method Nasal Cannula 07/15/24 10:21 O2 Flow Rate 4 07/15/24 10:21 07/14/24 07/15/24 07/15/24 22:59 06:59 14:59 Intake Total 1000 / 1000 Balance 1000 / 1000 Weight last 48 hrs Weight 72.575 kg Physical Exam 2 Narrative: HEENT: PERRLA, pupils bilaterally equal and reactive Chest: Bilateral bronchial breath sounds all over lung morris with occasional rhonchi, JVD elevated CVS: S1-S2 regular, soft pansystolic murmur at fourth intercostal space left retrosternal, no tachycardia, no gallops, no rubs Abdomen: Soft, nontender, no organomegaly, bowel sounds present Neuro: No focal deficits, no facial deformity, AO x3, Const: COMMON NORMALS: patient oriented x3 and alert GENERAL APPEARANCE: c ooperative, in distress, ill appearing, frail appearing and Edematous O RIENTATION/CONSCIOUSNESS: Yes awake, Yes oriented to person, Yes oriented to place and Yes oriented to time Urinary Catheter Management: Low: Cath Placed During This Visit: yes Urinary Catheter Date of Insertion: 07/15/24 Urinary Catheter Time of Insertion: 14:05 Data 07/15/24 10:38 07/15/24 10:38 Other Labs: Radiology Impressions Chest X-Ray 07/15/24 10:35 IMPRESSION: No acute cardiopulmonary process. Hip/Pelvis X-Ray 07/15/24 10:40 IMPRESSION: No acute findings. Knee X-Ray 07/15/24 10:40 IMPRESSION: No acute osseous pathology. Chest/Abdomen/Pelvis CT 07/15/24 11:39 IMPRESSION: 1. High-grade RIGHT hydroureteronephrosis. Hydronephrosis and hydroureter are new since 2020. Patient has known severe atrophy of the RIGHT kidney. No obstructing calcification is noted in the distal RIGHT ureter. 2. Marked dilatation of the urinary bladder. Relieving the distended urinary bladder may relieve the obstructed RIGHT collecting system. Otherwise possibility of noncalcified stone or mass should be considered causing the obstruction. 3. Ventral abdominal wall hernia contains a loop of transverse colon but no obstruction. 4. Moderate cardiomegaly. 5. No soft tissue hematomas. No acute fractures identified. Cervical Spine X-Ray 07/15/24 13:05 IMPRESSION: No acute cervical spine pathology. Laboratory Results WBC 7.02 10^3/uL (3.29-11.43) 07/15/24 10:38 RBC 2.43 10^6/uL (3.85-5.65) L 07/15/24 10:38 Hgb 6.00 g/dL (11.27-16.99) L* 07/15/24 10:38 Hct 21.6 % (36-47) L 07/15/24 10:38 MCV 88.9 fl (85-98) 07/15/24 10:38 MCH 24.7 pg (27-33) L 07/15/24 10:38 MCHC 27.8 g/dL (30-55) L 07/15/24 10:38 RDW 17.2 % (12.1-15.1) H 07/15/24 10:38 Plt Count 231 10^3/cmm (157-399) 07/15/24 10:38 MPV 9.9 fL (7.4-10.4) 07/15/24 10:38 Neut % (Auto) 73.1 % 07/15/24 10:38 Lymph % (Auto) 15.4 % 07/15/24 10:38 Lawrence % (Auto) 9.3 % 07/15/24 10:38 Eos % (Auto) 1.6 % 07/15/24 10:38 Baso % (Auto) 0.3 % 07/15/24 10:38 Neut # (Auto) 5.14 10^3/uL (1.8-7.7) 07/15/24 10:38 Lymph # (Auto) 1.1 10^3/uL (0.8-4.8) 07/15/24 10:38 Lawrence # (Auto) 0.7 10^3/uL (0.2-0.9) 07/15/24 10:38 Eos # (Auto) 0.1 10^3/uL (0.0-0.8) 07/15/24 10:38 Baso # (Auto) 0.0 10^3/uL (0.0-0.1) 07/15/24 10:38 Nucleated RBC % (auto) 0 % 07/15/24 10:38 Nucleated RBCs # 0.0 /100WBC 07/15/24 10:38 Specimen Type Arterial 07/15/24 10:50 Sample Site Brachial, right 07/15/24 10:50 ABG pH 7.42 (7.35-7.45) 07/15/24 10:50 ABG pCO2 32.6 mmHg (35-45) L 07/15/24 10:50 ABG pO2 55.0 mmHg (80.0-100.0) L 07/15/24 10:50 ABG HCO3 21.1 mmol/L (22-26) L 07/15/24 10:50 ABG O2 Saturation 90.5 07/15/24 10:50 ABG Base Excess -3.1 mmol/L (-2.0-2.0) L 07/15/24 10:50 Zackary Test Pos 07/15/24 10:50 A-a O2 Gradient 7.0 mmHg (5-10) 07/15/24 10:50 Hematocrit 17.9 % (37-47) L 07/15/24 10:50 Hgb O2 Saturation 87.4 % (95-100) L 07/15/24 10:50 Carboxyhemoglobin 2.2 %THgb (0.4-20.1) 07/15/24 10:50 Methemoglobin 1.2 % (0.4-1.5) 07/15/24 10:50 Total Hemoglobin 5.9 g/dL (12-16) L 07/15/24 10:50 Sodium 143.0 mmol/L (131-143) 07/15/24 10:50 Potassium 4.3 mmol/L (3.5-5.0) 07/15/24 10:50 Glucose 135.0 mg/dL (70-115) H 07/15/24 10:50 Ionized Calcium 1.1 mmol/L (1.1-1.4) 07/15/24 10:50 O2 Delivery Device Nc 07/15/24 10:50 O2 Liters/Min 3.0 % 07/15/24 10:50 Sludge Filtration Attendant ID Broma 07/15/24 10:50 Sodium 140 mmol/L (136-145) 07/15/24 10:38 Potassium 4.5 mmol/L (3.5-5.1) 07/15/24 10:38 Chloride 103 mmol/L (98-107) 07/15/24 10:38 Carbon Dioxide 20 mmol/L (22-29) L 07/15/24 10:38 Anion Gap 21.5 (5-19) H 07/15/24 10:38 BUN 66 mg/dL (8-23) H 07/15/24 10:38 Creatinine 2.6 mg/dL (0.5-0.9) H 07/15/24 10:38 GFR Calculation Not Reportable 07/15/24 10:38 Glucose 135 mg/dL (65-115) H 07/15/24 10:38 Calculated Osmolality 311 mOsm/kg (285-295) H 07/15/24 10:38 Lactic Acid 2.2 mmol/L (0.5-2.2) 07/15/24 10:38 Calcium 8.5 mg/dL (8.5-10.5) 07/15/24 10:38 Total Bilirubin 0.4 mg/dL (0.15-1.2) 07/15/24 10:38 AST 36 U/L (0-32) H 07/15/24 10:38 ALT 24 U/L (0-33) 07/15/24 10:38 Alkaline Phosphatase 81 U/L (35-105) 07/15/24 10:38 Creatine Kinase 336 U/L (26-192) H* 07/15/24 10:38 Troponin T Baseline 92 ng/L (0-10) H 07/15/24 10:38 Troponin T 120 Minute 84.92 ng/L (0-10) H 07/15/24 12:32 Delta Troponin T -7.08 ABS# (0-10) L 07/15/24 12:32 NT-Pro-B Natriuret Pep 90360 pg/mL (0-450) H 07/15/24 10:38 Total Protein 6.2 g/dL (6.6-8.7) L 07/15/24 10:38 Albumin 3.8 g/dL (3.5-5.2) 07/15/24 10:38 Globulin 2.4 g/dL (1.3-4.6) 07/15/24 10:38 Procalcitonin 0.21 ng/mL (0-0.5) 07/15/24 10:38 Amorphous Sediment Not Reportable 07/15/24 13:59 Crossmatch See Detail 07/15/24 14:10 A&P Assessment and plan (1) Generalized weakness: (2) Upper GI bleed: (3) Anemia: Qualifiers: Anemia type: iron deficiency (4) Hypotension: Qualifiers: Hypotension type: hypotension due to hypovolemia Qualified Code(s): E 86.1 - Hypovolemia (5) Acute hypoxemic respiratory failure: (6) Hydronephrosis: (7) CKD (chronic kidney disease): (8) COPD (chronic obstructive pulmonary disease): (9) Pulmonary hypertension: (10) Deep vein thrombosis, lower left extremity: (11) UTI (urinary tract infection): Plan 79-year-old lady with past medical history of severe pulmonary hypertension, left lower limb DVT, CKD presented to the ER because of generalized weakness, increased difficulty in breathing than her baseline, orthopnea found to have new anemia with concerns for GI bleed, persistent hypotension, right hydroureteronephrosis with urinary retention. Generalized weakness: Most likely in setting of acute anemia along with hypoxia. Seems more acute on chronic. PT/OT evaluation. Fall precautions. Acute anemia: Anemia with a hemoglobin of 6. Concerning for iron deficiency anemia. FOBT positive in the ER. Surgery consulted from the ER. History of GI bleed in the past. EGD/colonoscopy back in 2016 showed patchy gastritis with diverticulitis. Hold off on Eliquis for now. Protonix 40 mg twice daily. Clear liquid diet. 2 units of PRBC has been ordered in the ER. Target hemoglobin more than 8. Will transfuse accordingly. Hypotension: Most likely in setting of acute anemia. Cannot rule out cardiogenic shock. Keep mean artery pressure over 65. Will start Levophed accordingly. Acute hypoxia: Chronically on 3 L. History of COPD and severe pulmonary hypertension. ABG showing acute hypoxic and hypocapnic respiratory failure Repeat limited echocardiogram. Last echocardiogram from March 2024 showed normal EF with 65%, severe TR with severe elevated pulmonary hypertension with PASP of 70 mmHg. Fluid restriction to less than 1500 cc. IV Lasix as per fluid status. Strict input output charting, daily weights. Check D-dimer. Fortunately cannot do CTA given history of CKD. Depending on D- dimer level will plan for VQ scan. Holding off on anticoagulation for now given acute anemia. Nebulization with ipratropium, Xopenex every 6 hour, Pulmicort twice daily. Orthopnea: Mostly chronic. Continue to monitor. Head of the bed elevated 40 degrees. Acute urinary retention with right-sided hydroureteronephrosis: No calculi as per CT abdomen pelvis. Low catheterization. Will plan for renal ultrasound within next 48 hours. UTI: No symptoms. Patient has no leukocytosis. She did have significant urinary retention. Will follow-up urinalysis. For now empirically start on IV ceftriaxone. Check blood cultures, urine culture. CKD: Creatinine at baseline. Medical reconciliation done for nephrotoxic drugs. Appreciate CT abdomen pelvis. Monitor BMP daily. Hypertension: On Cardizem 120 mg p.o. twice daily at home. Currently on hold because of hypotension. Monitor. Telemetry. Left lower limb DVT: Will check bilateral Dopplers. Patient has been compliant with Eliquis. Holding off for now. No SCD on left leg. CODE STATUS: Patient states her son Hoang will be the DPOA. Will confirm with Mr. Bolton with if he would like to be the DPOA or not. Patient would like to be full code for now. Clear liquid diet SCD for DVT prophylaxis once DVT is ruled out. Protonix will be sufficient for PUD prophylaxis. Attestations 2 Medical Necessity Statement*: Requires admission for more than 2 midnights for management of acute anemia with concern for GI bleed in a patient with left lower and DVT on anticoagulation, hypotension, acute urinary retention with right-sided hydroureteronephrosis, UTI in a patient with baseline CKD Diagnoses Generalized weakness R53.1 Upper GI bleed K92.2 Anemia D64.9 Anemia type: iron deficiency Hypotension due to hypovolemia E86.1 Hypotension type: hypotension due to hypovolemia Acute hypoxemic respiratory failure J96.01 Hydronephrosis N13.30 CKD (chronic kidney disease) N18.9 COPD (chronic obstructive pulmonary disease) J44.9 Pulmonary hypertension I27.20 Deep vein thrombosis, lower left extremity I82.402 UTI (urinary tract infection) N39.0
[2024-07-15 14:18] LABS: Add Urine Microscopic? YES; Bacteria Urine EXCEEDS /hpf; Hyaline Casts Urine 138.59 /lpf; Squamous Epithelial Cell Urine 0-5 /hpf (0-5); WBC Urine >100 /hpf (0-5)
--- NOTE | 2024-07-15 14:20 | USCV_ITS ---
Susan Resendiz Age: 79 Gender: F : 1945 Exam Date: 07/15/2024 20:32 Ordering Phys: Rudy Day MD Technologist: [place] [facility] [place]: CHF, severe pulmonary HTN, hx DVT, COPD, o2 dependent 3L BP: 122 / 52 HR: 75 Rhythm: Sinus Technical Quality: Adequate MEASUREMENTS (Male / Female) Normal Values 2D ECHO LV Diastolic Diameter PLAX 4.0 cm 4.2 - 5.9 / 3.9 - 5.3 cm IVS Diastolic Thickness 0.9 cm 0.6 - 1.0 / 0.6 - 0.9 cm IVS Systolic Thickness 1.6 cm LVPW Diastolic Thickness 1.0 cm 0.6 - 1.0 / 0.6 - 0.9 cm LVPW Systolic Thickness 1.4 cm LVOT Diameter 1.7 cm LV Ejection Fraction 2D Teich 70.9 % LV Ejection Fraction MOD 4C 68.2 % LV Ejection Fraction MOD 2C 74.9 % LV Ejection Fraction 2C AL 74.7 % LA Diameter 3.3 cm Aorta at Sinotubular Diameter 2.7 cm IVC Diameter 2.6 cm M-MODE LA Ao Ratio MM 1.5 AV Cusp Separation MM 1.7 cm DOPPLER AV Peak Velocity 138.0 cm/s LVOT Peak Velocity 86.0 cm/s AV Area Cont Eq vti 1.6 cm squared AV Area Cont Eq pk 1.3 cm squared MV Peak Velocity 133.0 cm/s MV Area PHT 3.6 cm squared Mitral E to A Ratio 0.8 TV Peak Velocity 384.7 cm/s TR Peak Velocity 422.0 cm/s TR Peak Gradient 71.2 mmHg TV Peak E Velocity 76.0 cm/s Right Atrial Pressure 10.0 mmHg Pulmonary Artery Systolic Pressu 81.2 mmHg PV Peak Velocity 123.0 cm/s FINDINGS Left Ventricle Normal left ventricular size, systolic function and wall thickness, with no regional wall motion abnormalities. Left ventricular ejection fraction is estimated at 60 %. Grade I/IV diastolic dysfunction (abnormal relaxation filling pattern), normal to mildly elevated filling pressures. Right Ventricle Normal right ventricular size. Severe pulmonary hypertension, RVSP 81.2 mmHg. Right Atrium Moderately increased right atrial size. Left Atrium Mildly increased left atrial size. Mitral Valve Moderately thickened mitral valve. No mitral valve stenosis. Mild mitral valve regurgitation. Aortic Valve Moderate aortic valve calcification. Mild to moderate aortic valve stenosis, mean gradient 3.8 mmHg, DAVION 1.6 cm squared. Trace aortic valve regurgitation. Tricuspid Valve Severe tricuspid valve regurgitation. Pulmonic Valve Trace pulmonary valve regurgitation. Pericardium Normal pericardium without effusion. Aorta Normal ascending aorta dimension. IVC The inferior vena cava appears normal. CONCLUSIONS Normal left ventricular size, systolic function and wall thickness, with no regional wall motion abnormalities. Left ventricular ejection fraction is estimated at 60 %. Grade I/IV diastolic dysfunction (abnormal relaxation filling pattern), normal to mildly elevated filling pressures. Normal right ventricular size. Severe pulmonary hypertension, RVSP 81.2 mmHg. Moderately increased right atrial size. Moderate aortic valve calcification. Mild to moderate aortic valve stenosis, mean gradient 3.8 mmHg, DAVION 1.6 cm squared. Trace aortic valve regurgitation. There is no pericardial effusion. Right atrial pressure is around 5 mm of mercury. Chinedu Batres MD (Electronically Signed) Final Date: 16 July 2024 20:44 S
--- NOTE | 2024-07-15 14:27 | USCV_ITS ---
Susan Resendiz Age: 79 Gender: F : 1945 Exam Date: 07/15/2024 15:48 Ordering Phys: Rudy Day MD Technologist: KOKO Exam Location: [facility] [place] Indication: Swelling. Pain. h/o DVT HISTORY: Lower extremity swelling. Lower extremity pain. PROCEDURES: Comparison:. 03/17/24 Venous duplex imaging was performed in bilateral lower extremities. The following venous structures were evaluated: common femoral vein, profunda vein, proximal portion of the greater saphenous vein, superficial femoral vein, and the popliteal vein. In addition, the posterior tibial and peroneal trunk were evaluated. Serial compression, augmentation maneuvers, and spectral Doppler flow evaluation were performed. FINDINGS: Evidence of acute occlusive deep vein thrombosis in the right popliteal vein with abnormal flow dynamics. Evidence of chronic partial deep vein thrombosis in the left superficial femoral vein with normal flow dynamics. Improved since the prior exam. No additonal DVT seen. CONCLUSIONS Partial non occlusive DVT right Popliteal vein. Probably chronic nonocclusive DVT left SFV. Dr. Marilyn Navarro DO (Electronically Signed) Final Date: 16 July 2024 08:34 S
[2024-07-15 14:40] LABS: UA Slide Review UA Slide Review Perf
[2024-07-15 14:41] LABS: Add Urine Culture? Yes
[2024-07-15] MEDS: pantoprazole 40 mg SDV IVP (15:11)
[2024-07-15] MEDS: cefTRIAXone 1,000 mg SDV 1000 MG IVP (15:11)
--- NOTE | 2024-07-15 16:05 | PC.NURSE ---
Telephone order from Dr. Day for levophed.
--- NOTE | 2024-07-15 16:10 | P.CONIM_ITS ---
Providers/Reason For Consult 2 Consulting Physician/Specialty*: Dr. Booker Kennedy, /General Surgery Reason for Consult*: Acute blood loss anemia Iron deficiency anemia Attending Physician: Rudy Day MD Primary Care Provider: Jeff Banegas DO History of Present Illness History of Present Illness Susan Resendiz is a 79 year old female who presented to the hospital with weakness. She reports that she is unable to stand up off the floor. When she came to the hospital she was found to be anemic, with a hemoglobin of 6. She has a history of iron deficiency anemia and GI bleed. She was fecal occult blood test positive in the ER. She denies any hematochezia and/or melena however. 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 She denies any abdominal pain, nausea, emesis, diarrhea and/or constipation. Review of Systems 2 General: Reports: 10 or more systems reviewed and unremarkable except in HPI and below Medications/Allergies Home Medications Medication Instructions Recorded Confirmed Last Taken Type sertraline 50 mg tablet 50 mg PO DAILY 03/16/24 07/15/24 Unknown History albuterol sulfate 90 mcg/actuation 2 inh inhalation Q8H PRN shortness 03/22/24 07/15/24 Unknown Rx aerosol inhaler of breath or wheezing #6.7 grams apixaban 5 mg tablet (Eliquis) 2.5 mg (1/2 x 5 mg) PO 03/22/24 07/15/24 Unknown Rx BID@0900,2100 #120 tabs diltiazem HCl 120 mg 120 mg PO BID #60 caps 03/22/24 07/15/24 Unknown Rx capsule,extended release 24 hr (Cardizem CD) potassium chloride 10 mEq 10 meq PO .with bumex every otherd 03/22/24 07/15/24 Unknown Rx tablet,extended release day w bumex #30 tabs tiotropium bromide 18 mcg capsule 1 cap inhalation DAILY #60 03/22/24 07/15/24 Unknown Rx with inhalation device (Spiriva inhalations with HandiHaler) bumetanide 0.5 mg tablet 0.5 mg PO DAILY 07/15/24 07/15/24 Unknown History fluticasone propionate 45 2 inh inhalation BID 07/15/24 07/15/24 Unknown History mcg-salmeterol 21 mcg/actuation HFA inhaler (Advair HFA) mometasone-formoterol HFA 100 2 puff inhalation BID 07/15/24 07/15/24 Unknown History mcg-5 mcg/actuation aerosol inhaler (Dulera) Allergies Allergy/AdvReac Type Severity Reaction Status Date / Time penicillin G Allergy Severe ALGY-Swell Verified 01/27/21 08:51 Lip/Tongue/Throat Penicillins Allergy Unknown Verified 01/27/21 08:51 Current Medications Generic Name Dose Route Start Last Admin Trade Name Freq PRN Reason Stop Dose Admin Bisacodyl 10 mg 07/15/24 14:45 07/16/24 09:35 Bisacodyl 5 Mg Tablet PO 10 mg DAILY PRN Administration Constipation (see protocol) Protocol Budesonide 0.5 mg 07/15/24 20:00 07/16/24 08:06 Budesonide 0.5 Mg/2 Ml Neb INHALATION 0.5 mg BID.RESPIRATORY MAHNAZ Administration Ceftriaxone Sodium 1,000 mg 07/15/24 14:45 07/15/24 15:11 Ceftriaxone 1,000 Mg Sdv IVP 1,000 mg Q24H MAHNAZ Administration Protocol Furosemide 40 mg 07/16/24 08:00 07/16/24 08:21 Furosemide 10 Mg/Ml Sdv 4ml IVP 40 mg Q24H MAHNAZ Administration Norepinephrine Bitartrate 4 mg in 250 mls @ 0 mls/hr 07/15/24 16:15 07/15/24 23:01 Levophed IV 2 mcg/min .Q0M MANHAZ 7.5 mls/hr Titration Protocol Per Protocol Insulin Human Lispro 0 unit 07/16/24 08:00 07/16/24 08:21 Insulin Lispro 100 Unit/1 Ml SUBCUT 6 unit WM&BEDTIME MAHNAZ Administration Protocol Ipratropium Leblanc 0.5 mg 07/15/24 20:00 07/16/24 08:06 Ipratropium 0.5 Mg/2.5 Ml Neb INHALATION 0.5 mg Q6H.RESP MAHNAZ Administration Levalbuterol HCl 0.63 mg 07/15/24 20:00 07/16/24 08:06 Levalbuterol 0.63 Mg/3 Ml Neb INHALATION 0.63 mg Q6H.RESP MAHNAZ Administration Pantoprazole Sodium 40 mg 07/15/24 14:45 07/16/24 02:51 Pantoprazole 40 Mg Sdv IVP 40 mg Q12H MAHNAZ Administration Sertraline HCl 50 mg 07/16/24 09:00 07/16/24 08:21 Sertraline 50 Mg Tablet PO 50 mg DAILY MAHNAZ Administration PFSH Acute 2 PFSH: Medical History Urinary tract infection Deep vein thrombosis, lower left extremity 03/17- Nonocclusive thrombus distal left superficial femoral vein and popliteal vein. CKD (chronic kidney disease) Acute hypoxemic respiratory failure COPD (chronic obstructive pulmonary disease) Acute on chronic renal insufficiency Congestive heart failure Acute exacerbation of chronic obstructive airways disease Leukoplakia of bladder Diabetes mellitus History of recurrent UTI (urinary tract infection) Surgical History History of tonsillectomy and adenoidectomy H/O tubal ligation Family History Mother , AT AGE 91 Stroke Father , AT 99 No problems noted. Social History Smoking and tobacco/nicotine status: never used tobacco/nicotine Alcohol intake: never Marital status: / Current occupational status: retired Vitals/I&O/Wt Last Vital Signs Temp 98.2 F 07/16/24 04:00 Pulse 76 07/16/24 08:07 Resp 20 H 07/16/24 04:30 BP 126/60 07/16/24 04:30 Pulse Ox 96 07/16/24 04:30 O2 Del Method Nasal Cannula 07/16/24 04:00 O2 Flow Rate 4 07/16/24 04:00 07/15/24 07/16/24 07/16/24 22:59 06:59 14:59 Intake Total 966.000 / 1966.000 477 / 2443.000 Output Total 400 / 400 2800 / 3200 Balance 566.000 / 1566.000 -2323 / -757.000 Weight last 48 hrs Weight 165 lb 7.184 oz Weight 167 lb Weight 160 lb Physical Exam 2 Narrative: General : Patient is well developed , no acute distress, oriented x3 Head : Normal cephalic, a-traumatic. Ears : Pinnae and external canal are normal. Hearing is normal. Eyes : PERRLA, Sclera and injection are normal. No conjunctival discharge. Nose : Mucous membranes are without erythema. Throat : buccal mucosa is normal, gums are without significant recession or hypertrophy. Lungs : Equal chest rise bilaterally, no use of accessory muscles, trachea is midline. Cor : Rate and rhythm are normal. Abdomen : Soft, ND, NT, no g/r/m Extremities : No edema, no cyanosis or clubbing, dorsalis pedis pulses are present bilaterally, non-tender to palpation of calves. Upper extremities are normal bilaterally. Back : non-tender to palpation, no CVA tenderness. Neuro : CN II - XII intact, Upper and lower extremities have equal and full strength Urinary Catheter Management: Low: Cath Placed During This Visit: yes Reason for Continuing Indwelling Catheter: Accurate Measurement of Urinary Output in Critically Ill Patients Urinary Catheter Date of Insertion: 07/15/24 Urinary Catheter Time of Insertion: 14:05 Data 07/16/24 04:26 07/16/24 04:26 Micro: Microbiology 07/15/24 13:59 Bacterial Antigens - Final Urine Kidney 07/15/24 13:59 Legionella Urinary Antigen - Final Unknown Source 07/15/24 15:46 Blood Culture - Preliminary Blood SPECIMEN COLLECTED 07/15/24 15:41 Blood Culture - Preliminary Blood SPECIMEN COLLECTED A&P Assessment and plan (1) GI bleed: (2) Acute blood loss anemia: (3) Iron deficiency anemia: (4) Chronic anticoagulation: (5) Generalized weakness: Plan Clear liquid diet Bowel prep tomorrow for EGD and colonoscopy on Monday. We need to wait 48 hours from her last dose of Eliquis, which was this morning The risks and benefits of the procedure, including bleeding, infection, intestinal perforation requiring surgery, missed lesion were explained to the patient. The patient is understanding of the risks and wishes to proceed. Medical management per primary Coding Level of Care Code 09859 Diagnoses GI bleed K92.2 Acute blood loss anemia D62 Iron deficiency anemia D50.9 Chronic anticoagulation Z79.01 Generalized weakness R53.1
[2024-07-15 16:11] LABS: Iron 15 ug/dL (37-145); Percent Saturation 5.2 % (20-50); Total Iron Binding Capacity 288 mcg/dl; Unsaturated Iron Binding 273 ug/dL (112-347); Vitamin B12 649 pg/mL (232-1245)
[2024-07-15] MEDS: norepinephrine 4 MG/250 ML BAG 7.5 MG IV (16:13)
--- NOTE | 2024-07-15 16:33 | PC.NURSE ---
Dr. Kennedy spoke with patient at bedside about the possibility of starting bowel prep 07/16/24 and performing EGD and colonoscopy on 07/17/2024.
[2024-07-15 16:50] LABS: Lactic Acid level (Lactate) 1.9 mmol/L (0.5-2.2)
--- NOTE | 2024-07-15 16:57 | PC.NURSE ---
Wound note: Patient reportedly sat in chair at home for some time, patient had debris stuck to skin on buttock, food wrappers and such, after cleaning and removing these, a grouping of pressure injuries approximately 10 cm in diameter noted to have peeling skin. Below buttock, non-blanchable area also noted in Wound Care documentation.
--- NOTE | 2024-07-15 17:10 | ECG_ITS ---
[employer] Test Date: 2024-07-15 Pat Name: Susan Resendiz Department: Room: ICU11 Gender: Female [employer]: : 1945 Requested By: Park Adkins Order Number: [id number] Anaid MD: Bin Soria M.D. Measurements Intervals [place] Rate: 77 P: 69 MT: 153 QRS: 82 QRSD: 91 T: 64 QT: 364 QTc: 414 Interpretive Statements SINUS RHYTHM POSSIBLE LEFT ATRIAL ENLARGEMENT [-0.1mV P-WAVE IN V1/V2] LOW QRS VOLTAGE IN PRECORDIAL LEADS [QRS DEFLECTION < 1.0 mV IN CHEST LEADS] INCOMPLETE RIGHT BUNDLE BRANCH BLOCK [90+ ms QRS DURATION, TERMINAL R IN V1/V2, 40+ ms S IN I/aVL/V4/V5/V6] Compared to ECG 07/15/2024 13:29:17 Incomplete right bundle-branch block now present Sinus arrhythmia no longer present T-wave abnormality no longer present Electronically Signed On 07-21-2024 21:03:20 SUGGESTION CLERK by Bin Soria M.D. [email or web address]
[2024-07-15] MEDS: FUROsemide 10 mg/mL SDV 4mL 40 MG IVP (17:54)
[2024-07-15] MEDS: ipratropium 0.5 mg/2.5 mL Neb INHALATION (19:54)
[2024-07-15] MEDS: budesonide 0.5 mg/2 mL Neb INHALATION (19:54)
[2024-07-15] MEDS: levalbuterol 0.63 mg/3 mL Neb INHALATION (19:54)
[2024-07-15 19:59] LABS: Troponin 5 6HR 73.96 ng/L (0-10)
[2024-07-15 20:02] LABS: Troponin 5 6HR Delta -18.04 ng/L (0-12)
[2024-07-15 20:21] LABS: Anion Gap 20.8 (5-19); Blood Urea Nitrogen 63 mg/dL (8-23); Calcium 7.8 mg/dL (8.5-10.5); Carbon Dioxide 18 mmol/L (22-29); Chloride 102 mmol/L (98-107); Creatinine Clr Calc Pharmacy 18.1115; Glucose 306 mg/dL (65-115); Osmolality Calculated 312 mOsm/kg (285-295); Potassium 4.8 mmol/L (3.5-5.1); Sodium 136 mmol/L (136-145)
[2024-07-15 23:33] LABS: Glucose Point of Care 278 mg/dL (70-110)
[2024-07-16] VITALS (83 sets, daily range): BP systolic 94–136; BP diastolic 41–75; PULSE 62–96; RESP 13–29; TEMP 36.6–37; O2SAT 84–100; BMI 31.4
[2024-07-16] MEDS: levalbuterol 0.63 mg/3 mL Neb INHALATION ×4 (01:02→20:27)
[2024-07-16] MEDS: ipratropium 0.5 mg/2.5 mL Neb INHALATION ×4 (01:02→20:27)
[2024-07-16 01:16] LABS: Glucose Point of Care 221 mg/dL (70-110)
[2024-07-16] MEDS: pantoprazole 40 mg SDV IVP ×2 (02:51→15:00)
[2024-07-16 04:37] LABS: Basophils % 0.2 %; Hematocrit 26.6 % (36-47); Lymphocytes # 0.2 10^3/uL (0.8-4.8); Lymphocytes % 5.1 %; Mean Corpuscular HGB Conc 30.5 g/dL (30-55); Mean Corpuscular Hemoglobin 26.5 pg (27-33); Mean Corpuscular Volume 86.9 fl (85-98); Mean Platelet Volume 8.8 fL (7.4-10.4); Monocytes # 0.2 10^3/uL (0.2-0.9); Neutrophils # 3.82 10^3/uL (1.8-7.7); Neutrophils % 89.1 %; Nucleated Red Blood Cells % 0.9 %; Platelet Count 159 10^3/cmm (157-399); Red Blood Count 3.06 10^6/uL (3.85-5.65); Red Cell Distribution Width 15.9 % (12.1-15.1); White Blood Count 4.29 10^3/uL (3.29-11.43)
[2024-07-16 05:18] LABS: Procalcitonin 0.21 ng/mL (0-0.5)
[2024-07-16 05:22] LABS: Alanine Aminotransferase 22 U/L (0-33); Albumin Level 3.7 g/dL (3.5-5.2); Alkaline Phosphatase 87 U/L (35-105); Anion Gap 17.6 (5-19); Aspartate Amino Transferase 30 U/L (0-32); Blood Urea Nitrogen 60 mg/dL (8-23); Calcium 7.9 mg/dL (8.5-10.5); Carbon Dioxide 24 mmol/L (22-29); Chloride 104 mmol/L (98-107); Globulin 2.7 g/dL (1.3-4.6); Glucose 168 mg/dL (65-115); Magnesium 2.1 mg/dL (1.7-2.3); Osmolality Calculated 313 mOsm/kg (285-295); Phosphorus 4.6 mg/dL (2.5-4.5); Potassium 4.6 mmol/L (3.5-5.1); Sodium 141 mmol/L (136-145); Total Bilirubin 1.9 mg/dL (0.15-1.2); Total Protein 6.4 g/dL (6.6-8.7)
[2024-07-16 05:25] LABS: Chol HDL Ratio 2.24 mg/dL (0.0-4.40); Cholesterol 112 mg/dL (0-200); HDL Cholesterol 50 mg/dL (60-100); LDL Cholesterol Calculated 48 mg/dL (50-129); LDL HDL Ratio 0.96 RATIO (0.00-3.22); Triglycerides 72 mg/dL (0-150)
[2024-07-16 05:26] LABS: Estmated Average Glucose 103; Folate Level 3.9 ng/mL (4.8-37.3); Hemoglobin A1C 5.2 % (4.0-6.0)
[2024-07-16 07:46] LABS: Glucose Point of Care 182 mg/dL (70-110)
[2024-07-16] MEDS: budesonide 0.5 mg/2 mL Neb INHALATION ×2 (08:06→20:27)
[2024-07-16] MEDS: FUROsemide 10 mg/mL SDV 4mL 40 MG IVP (08:21)
[2024-07-16] MEDS: insulin lispro 100 unit/1 mL SUBCUT ×3 (08:21→17:53)
[2024-07-16] MEDS: sertraline 50 mg Tablet PO (08:21)
[2024-07-16] MEDS: magnesium citrate Btl 296 mL PO ×2 (09:35→10:18)
[2024-07-16] MEDS: bisacodyl 5 mg Tablet 10 MG PO ×2 (09:35)
[2024-07-16] MEDS: lanolin oint 7 gm 1 APPLIC TOPICAL (10:17)
[2024-07-16] MEDS: iron sucrose 200 MG in sodium chloride 0.9% (100 ml) 100 ML 220 MG IV (10:34)
[2024-07-16 11:41] LABS: Glucose Point of Care 173 mg/dL (70-110)
--- NOTE | 2024-07-16 14:03 | P.PN_ITS ---
Subjective 2 Subjective: Patient seen and examined. Denies any abdominal pain nausea or emesis Vitals/I&O/Wt Last Vital Signs Temp 97.9 F 07/17/24 08:45 Pulse 92 07/17/24 14:00 Resp 16 07/17/24 13:53 BP 120/59 07/17/24 12:00 Pulse Ox 99 07/17/24 13:53 O2 Del Method Nasal Cannula 07/17/24 13:53 O2 Flow Rate 4 07/17/24 13:53 07/17/24 07/17/24 07/17/24 06:59 14:59 22:59 Intake Total 42.5 / 1765.875 455 / 455 Output Total 1300 / 2800 1400 / 1400 Balance -1257.5 / -1034.125 -945 / -945 Weight last 48 hrs Weight 160 lb 14.999 oz Weight 162 lb 0.636 oz Weight 171 lb 15.369 oz Weight 165 lb 7.184 oz Weight 167 lb Physical Exam 2 Narrative: General : Patient is well developed , no acute distress, oriented x3 Head : Normal cephalic, a-traumatic. Ears : Pinnae and external canal are normal. Hearing is normal. Eyes : PERRLA, Sclera and injection are normal. No conjunctival discharge. Nose : Mucous membranes are without erythema. Throat : buccal mucosa is normal, gums are without significant recession or hypertrophy. Lungs : Equal chest rise bilaterally, no use of accessory muscles, trachea is midline. Cor : Rate and rhythm are normal. Abdomen : Soft, ND, NT, no g/r/m Extremities : No edema, no cyanosis or clubbing, dorsalis pedis pulses are present bilaterally, non-tender to palpation of calves. Upper extremities are normal bilaterally. Back : non-tender to palpation, no CVA tenderness. Neuro : CN II - XII intact, Upper and lower extremities have equal and full strength Urinary Catheter Management: Low: Cath Placed During This Visit: yes Reason for Continuing Indwelling Catheter: Accurate Measurement of Urinary Output in Critically Ill Patients Urinary Catheter Date of Insertion: 07/15/24 Urinary Catheter Time of Insertion: 14:05 Data 07/17/24 03:44 07/17/24 03:44 Micro: Microbiology 07/15/24 13:59 Urine Culture - Final Urine,Clean Catch 07/15/24 15:46 Blood Culture - Preliminary Blood NEGATIVE TO DATE 07/15/24 15:41 Blood Culture - Preliminary Blood NEGATIVE TO DATE A&P Assessment and plan (1) GI bleed: (2) Acute blood loss anemia: (3) Iron deficiency anemia: (4) Chronic anticoagulation: (5) Generalized weakness: Plan Clear liquid diet Bowel prep for EGD and colonoscopy on Monday. We need to wait 48 hours from her last dose of Eliquis, which was this morning The risks and benefits of the procedure, including bleeding, infection, intestinal perforation requiring surgery, missed lesion were explained to the patient. The patient is understanding of the risks and wishes to proceed. Medical management per primary Attestations 2 Medical Necessity Statement*: Per primary Coding Level of Care Code 32836 Diagnoses GI bleed K92.2 Acute blood loss anemia D62 Iron deficiency anemia D50.9 Chronic anticoagulation Z79.01 Generalized weakness R53.1
--- NOTE | 2024-07-16 14:13 | P.PN_ITS ---
Subjective 2 Subjective: No acute events overnight. Patient denies any nausea, vomiting, headache. Has not had a bowel movement since admission. States she is feeling slightly better. Breathing is slightly improved with less work of breathing. She is saturating well on 3 L of oxygen supplementation. Mean artery pressure maintained over 65 on 1 of Levophed. Urine output appreciated. Vitals/I&O/Wt Last Vital Signs Temp 98.6 F 07/16/24 11:30 Pulse 78 07/16/24 14:00 Resp 16 07/16/24 13:45 BP 118/55 07/16/24 13:00 Pulse Ox 97 07/16/24 13:45 O2 Del Method Nasal Cannula 07/16/24 13:45 O2 Flow Rate 3 07/16/24 13:45 07/15/24 07/16/24 07/16/24 22:59 06:59 14:59 Intake Total 966.000 / 1966.000 477 / 2443.000 803.375 / 803.375 Output Total 400 / 400 2800 / 3200 1000 / 1000 Balance 566.000 / 1566.000 -2323 / -757.000 -196.625 / -196.625 Weight last 48 hrs Weight 78 kg Weight 75.046 kg Weight 75.75 kg Weight 72.575 kg Physical Exam 2 Narrative: HEENT: PERRLA, pupils bilaterally equal and reactive Chest: Bilateral bronchial breath sounds all over lung morris with occasional rhonchi, JVD elevated CVS: S1-S2 regular, soft pansystolic murmur at fourth intercostal space left retrosternal, no tachycardia, no gallops, no rubs Abdomen: Soft, nontender, no organomegaly, bowel sounds present Neuro: No focal deficits, no facial deformity, AO x3, Const: COMMON NORMALS: patient oriented x3 and alert GENERAL APPEARANCE: c ooperative, in distress, ill appearing, frail appearing and Edematous O RIENTATION/CONSCIOUSNESS: Yes awake, Yes oriented to person, Yes oriented to place and Yes oriented to time Neuro: COMMON NORMALS: patient oriented x3 SENSORIUM/ORIENTATION: Yes alert, Yes oriented to person, Yes oriented to place and Yes oriented to time Urinary Catheter Management: Low: Cath Placed During This Visit: yes Reason for Continuing Indwelling Catheter: Accurate Measurement of Urinary Output in Critically Ill Patients Urinary Catheter Date of Insertion: 07/15/24 Urinary Catheter Time of Insertion: 14:05 Data 07/16/24 04:26 07/16/24 04:26 Micro: Microbiology 07/15/24 13:59 Urine Culture - Preliminary Urine,Clean Catch 07/15/24 13:59 Bacterial Antigens - Final Urine Kidney 07/15/24 13:59 Legionella Urinary Antigen - Final Unknown Source 07/15/24 15:46 Blood Culture - Preliminary Blood SPECIMEN COLLECTED 07/15/24 15:41 Blood Culture - Preliminary Blood SPECIMEN COLLECTED A&P Assessment and plan (1) Generalized weakness: (2) Upper GI bleed: (3) Anemia: Qualifiers: Anemia type: iron deficiency (4) Hypotension: Qualifiers: Hypotension type: hypotension due to hypovolemia Qualified Code(s): E 86.1 - Hypovolemia (5) Acute hypoxemic respiratory failure: (6) Hydronephrosis: (7) CKD (chronic kidney disease): (8) COPD (chronic obstructive pulmonary disease): (9) Pulmonary hypertension: (10) Deep vein thrombosis, lower left extremity: (11) UTI (urinary tract infection): Plan 79-year-old lady with past medical history of severe pulmonary hypertension, left lower limb DVT, CKD presented to the ER because of generalized weakness, increased difficulty in breathing than her baseline, orthopnea found to have new anemia with concerns for GI bleed, persistent hypotension, right hydroureteronephrosis with urinary retention. Generalized weakness: Most likely in setting of acute anemia along with hypoxia. Seems more acute on chronic. PT/OT evaluation. Fall precautions. Acute anemia: Hemoglobin of 6 on admission. Iron deficiency anemia. FOBT positive. Post 2 unit of blood transfusion. Repeat hemoglobin in afternoon. Hold off on Eliquis for now. Surgery consulted. Plan for EGD and colonoscopy tomorrow. History of GI bleed in the past. EGD/colonoscopy back in 2017 showed patchy gastritis with diverticulitis. Continue with Protonix 40 mg twice daily. Clear liquid diet. Target hemoglobin around 8. Will transfuse accordingly. Shock: Hypovolemic in setting of acute anemia versus cardiogenic. Wean Levophed keeping mean artery pressure around 70. Hold off on home dose of antihypertensives. Acute hypoxia: Chronically on 3 L. History of COPD and severe pulmonary hypertension. ABG showing acute hypoxic and hypocapnic respiratory failure Repeat limited echocardiogram pending. Last echocardiogram from March 2024 showed normal EF with 65%, severe TR with severe elevated pulmonary hypertension with PASP of 70 mmHg. Fluid restriction to less than 1500 cc. IV Lasix 40 mg daily. Strict input output charting, daily weights. Likelihood of pulmonary embolism high. Patient does have DVT. Unfortunately CTA cannot be done given CKD. Holding off on anticoagulation for now given acute anemia. Nebulization with ipratropium, Xopenex every 6 hour, Pulmicort twice daily. Orthopnea: Mostly chronic. Continue to monitor. Head of the bed elevated 40 degrees. Acute urinary retention with right-sided hydroureteronephrosis: No calculi as per CT abdomen pelvis. Low catheterization. Will plan for renal ultrasound within next 48 hours. UTI: No symptoms. Patient has no leukocytosis. She did have significant urinary retention. Will follow-up urinalysis. For now empirically start on IV ceftriaxone. Check blood cultures, urine culture. CKD: Creatinine at baseline. Medical reconciliation done for nephrotoxic drugs. Appreciate CT abdomen pelvis. Monitor BMP in afternoon. Hypertension: On Cardizem 120 mg p.o. twice daily at home. Currently on hold because of hypotension. Monitor. Telemetry. Hyperglycemia: Blood sugars elevated. A1c 5.2. For now continue with sliding scale insulin. Monitor for hypoglycemia. Left lower limb DVT: Appreciate bilateral lower limb Dopplers. Concerning for DVT. Patient has been compliant with Eliquis. Holding off for now. Hold off on SCDs. CODE STATUS: Patient states her son Hoang will be the DPOA. Will confirm with Mr. Bolton with if he would like to be the DPOA or not. Patient would like to be full code for now. Clear liquid diet SCD for DVT prophylaxis once DVT is ruled out. Protonix will be sufficient for PUD prophylaxis. Attestations 2 Medical Necessity Statement*: Requires further hospitalization for management of acute anemia with concerns for upper GI bleed, DVT with concerns of pulmonary embolism on anticoagulation, acute hypoxia in setting of congestive heart failure, pulmonary embolism, acute urinary retention leading to right-sided hydroureteronephrosis, CKD Critical Care Time: The high probability of a clinically significant, sudden or life threatening deterioration of the patient's [cardiac, hematological, GI, renal, pulmonary] s ystem(s) required my full and direct attention, intervention and personal management. The critical care time is as shown. This time is in addition to time spent performing any reported procedures but includes the following: [x] Data and vital sign review and interpretation [x] Patient assessment, examination and intervention [x] Documentation [x] Medication orders and management Critical Care Time (min): 80 Coding Level of Care Code Critical Care >/= 30 minutes Critical care time (in minutes): 80 The high probability of a clinically significant, sudden or life threatening deterioration, as referenced in this documentation, required my full and direct attention, intervention and personal management. The critical care time shown is in addition to time spent performing any reported separately billable procedures and includes the following: [x] Data and vital sign review and interpretation [x ] Patient assessment, examination and intervention [x] Medication orders and management [x] Patient/Family updates as able [x] Care Coordination and Documentation. Diagnoses Generalized weakness R53.1 Upper GI bleed K92.2 Anemia D64.9 Anemia type: iron deficiency Hypotension due to hypovolemia E86.1 Hypotension type: hypotension due to hypovolemia Acute hypoxemic respiratory failure J96.01 Hydronephrosis N13.30 CKD (chronic kidney disease) N18.9 COPD (chronic obstructive pulmonary disease) J44.9 Pulmonary hypertension I27.20 Deep vein thrombosis, lower left extremity I82.402 UTI (urinary tract infection) N39.0
[2024-07-16] MEDS: cefTRIAXone 1,000 mg SDV 1000 MG IVP (14:59)
[2024-07-16 15:26] LABS: Hematocrit 26.3 % (36-47)
[2024-07-16 15:45] LABS: Anion Gap 18.8 (5-19); Blood Urea Nitrogen 65 mg/dL (8-23); Calcium 7.9 mg/dL (8.5-10.5); Carbon Dioxide 22 mmol/L (22-29); Chloride 102 mmol/L (98-107); Creatinine Clr Calc Pharmacy 19.1807; Glucose 117 mg/dL (65-115); Osmolality Calculated 308 mOsm/kg (285-295); Potassium 3.8 mmol/L (3.5-5.1); Sodium 139 mmol/L (136-145)
[2024-07-16 17:34] LABS: Glucose Point of Care 199 mg/dL (70-110)
--- NOTE | 2024-07-16 17:34 | PC.NURSE ---
Doctor Brent stated that he was fine with letting the patient have fluids until 10 am tomorrow. Only fluids no solids.
[2024-07-16] MEDS: folic acid 1 mg Tablet PO (17:53)
[2024-07-16] MEDS: acetaminophen 325 mg Tablet 650 MG PO (19:28)
[2024-07-16 21:20] LABS: Glucose Point of Care 122 mg/dL (70-110)
--- NOTE | 2024-07-16 22:00 | PC.NURSE ---
Contacted Dr. Avila in reference to patients recent Hgb of 7.8, unchanged from the previous draw. No new orders received.
[2024-07-16 22:09] LABS: Basophils % 0.1 %; Eosinophils % 0.2 %; Hematocrit 26.1 % (36-47); Lymphocytes # 0.7 10^3/uL (0.8-4.8); Lymphocytes % 8.1 %; Mean Corpuscular HGB Conc 29.9 g/dL (30-55); Mean Corpuscular Hemoglobin 26.3 pg (27-33); Mean Corpuscular Volume 87.9 fl (85-98); Mean Platelet Volume 9.3 fL (7.4-10.4); Monocytes # 0.7 10^3/uL (0.2-0.9); Neutrophils # 7.46 10^3/uL (1.8-7.7); Neutrophils % 82.8 %; Nucleated Red Blood Cells % 0.3 %; Platelet Count 175 10^3/cmm (157-399); Red Blood Count 2.97 10^6/uL (3.85-5.65); Red Cell Distribution Width 16.5 % (12.1-15.1); White Blood Count 9.01 10^3/uL (3.29-11.43)
[2024-07-17] VITALS (88 sets, daily range): BP systolic 74–130; BP diastolic 38–77; PULSE 70–103; RESP 12–35; TEMP 36.6–36.8; O2SAT 88–100
[2024-07-17] MEDS: levalbuterol 0.63 mg/3 mL Neb INHALATION ×4 (01:30→20:36)
[2024-07-17] MEDS: ipratropium 0.5 mg/2.5 mL Neb INHALATION ×4 (01:30→20:36)
[2024-07-17] MEDS: pantoprazole 40 mg SDV IVP ×2 (03:19→14:11)
[2024-07-17 03:59] LABS: Eosinophils % 0.3 %; Hematocrit 26.1 % (36-47); Lymphocytes # 0.7 10^3/uL (0.8-4.8); Lymphocytes % 12.4 %; Mean Corpuscular HGB Conc 29.5 g/dL (30-55); Mean Corpuscular Hemoglobin 26.1 pg (27-33); Mean Corpuscular Volume 88.5 fl (85-98); Mean Platelet Volume 9.3 fL (7.4-10.4); Monocytes # 0.3 10^3/uL (0.2-0.9); Monocytes % 5.3 %; Neutrophils # 4.71 10^3/uL (1.8-7.7); Neutrophils % 81.1 %; Nucleated Red Blood Cells % 0 %; Platelet Count 160 10^3/cmm (157-399); Red Blood Count 2.95 10^6/uL (3.85-5.65); Red Cell Distribution Width 16.6 % (12.1-15.1); White Blood Count 5.81 10^3/uL (3.29-11.43)
[2024-07-17 04:25] LABS: Alanine Aminotransferase 20 U/L (0-33); Albumin Level 3.5 g/dL (3.5-5.2); Alkaline Phosphatase 76 U/L (35-105); Anion Gap 14.1 (5-19); Aspartate Amino Transferase 20 U/L (0-32); Blood Urea Nitrogen 63 mg/dL (8-23); Calcium 8.1 mg/dL (8.5-10.5); Carbon Dioxide 27 mmol/L (22-29); Chloride 101 mmol/L (98-107); Creatinine Clr Calc Pharmacy 21.0075; Globulin 2.8 g/dL (1.3-4.6); Glucose 144 mg/dL (65-115); Osmolality Calculated 309 mOsm/kg (285-295); Potassium 3.1 mmol/L (3.5-5.1); Sodium 139 mmol/L (136-145); Total Bilirubin 0.4 mg/dL (0.15-1.2); Total Protein 6.3 g/dL (6.6-8.7)
[2024-07-17] MEDS: lidocaine 1% 5 ML in potassium chloride premix 100 ML 26.25 ML IV ×2 (06:03→10:01)
[2024-07-17 07:32] LABS: Glucose Point of Care 124 mg/dL (70-110)
[2024-07-17] MEDS: budesonide 0.5 mg/2 mL Neb INHALATION ×2 (08:13→20:36)
[2024-07-17] MEDS: sertraline 50 mg Tablet PO (08:44)
[2024-07-17] MEDS: FUROsemide 10 mg/mL SDV 4mL 40 MG IVP (08:44)
[2024-07-17] MEDS: folic acid 1 mg Tablet PO ×2 (08:44→17:28)
--- NOTE | 2024-07-17 09:23 | XR_ITS ---
WS: [id number] Portable AP upright chest, 07/17/2024 Clinical Data: sob Comparison: Portable chest, 07/15/2024 Findings: No nodules, masses or effusions are seen. The heart is normal. The pulmonary vascularity is not increased. No pneumonia or pneumothorax is seen. The aortic arch and descending thoracic aorta s how calcification and tortuosity. There is a dextroscoliosis. Monitor leads are on the chest wall. Th ere is a surgical plate and screws on the proximal right humerus unchanged. XR/XR chest 1V portable [id number] Impression: Atherosclerosis.
[2024-07-17] MEDS: iron sucrose 200 MG in sodium chloride 0.9% (100 ml) 100 ML 220 MG IV (10:07)
[2024-07-17 11:37] LABS: Glucose Point of Care 154 mg/dL (70-110)
--- NOTE | 2024-07-17 11:43 | PC.NURSE ---
Patient is NPO and is not going to eat after getting insulin. Doctor christiana was notified and he ordered to hold off on the insulin dose for right now.
--- NOTE | 2024-07-17 13:28 | PC.SOCIAL ---
IMM Updated Updated pt on IMM. No questions voiced. Provided pt a copy. Initialed, dated, & timed a copy & placed in chart.
--- NOTE | 2024-07-17 14:09 | P.PN_ITS ---
Subjective 2 Subjective: No acute events overnight. Today morning patient seen sitting up in the bed. States she is feeling better. Thinks swelling in her leg is improving. Breathing is improving as well. She is saturating more than 95% on 4 L. States she is feeling slightly anxious because of the need for endoscopy but is agreeable. Denies any melena. Denies any chest pain. Levophed was discontinued overnight for mean arterial pressure of more than 65. Vitals/I&O/Wt Last Vital Signs Temp 97.9 F 07/17/24 08:45 Pulse 87 07/17/24 13:53 Resp 16 07/17/24 13:53 BP 120/59 07/17/24 12:00 Pulse Ox 99 07/17/24 13:53 O2 Del Method Nasal Cannula 07/17/24 13:53 O2 Flow Rate 4 07/17/24 13:53 07/16/24 07/17/24 07/17/24 22:59 06:59 14:59 Intake Total 810 / 1723.375 42.5 / 1765.875 455 / 455 Output Total 500 / 1500 1300 / 2800 1400 / 1400 Balance 310 / 223.375 -1257.5 / -1034.125 -945 / -945 Weight last 48 hrs Weight 73 kg Weight 73.5 kg Weight 78 kg Weight 75.046 kg Weight 75.75 kg Physical Exam 2 Narrative: HEENT: PERRLA, pupils bilaterally equal and reactive Chest: Bilateral bronchial breath sounds all over lung morris with occasional rhonchi, JVD elevated CVS: S1-S2 regular, soft pansystolic murmur at fourth intercostal space left retrosternal, no tachycardia, no gallops, no rubs Abdomen: Soft, nontender, no organomegaly, bowel sounds present Neuro: No focal deficits, no facial deformity, AO x3, Const: COMMON NORMALS: patient oriented x3 and alert GENERAL APPEARANCE: c ooperative, in distress, ill appearing, frail appearing and Edematous O RIENTATION/CONSCIOUSNESS: Yes awake, Yes oriented to person, Yes oriented to place and Yes oriented to time Neuro: COMMON NORMALS: patient oriented x3 SENSORIUM/ORIENTATION: Yes alert, Yes oriented to person, Yes oriented to place and Yes oriented to time Urinary Catheter Management: Low: Cath Placed During This Visit: yes Reason for Continuing Indwelling Catheter: Accurate Measurement of Urinary Output in Critically Ill Patients Urinary Catheter Date of Insertion: 07/15/24 Urinary Catheter Time of Insertion: 14:05 Data 07/17/24 03:44 07/17/24 03:44 Micro: Microbiology 07/15/24 13:59 Urine Culture - Final Urine,Clean Catch 07/15/24 15:46 Blood Culture - Preliminary Blood NEGATIVE TO DATE 07/15/24 15:41 Blood Culture - Preliminary Blood NEGATIVE TO DATE 07/15/24 13:59 Bacterial Antigens - Final Urine Kidney A&P Assessment and plan (1) Generalized weakness: (2) Upper GI bleed: (3) Anemia: Qualifiers: Anemia type: iron deficiency (4) Hypotension: Qualifiers: Hypotension type: hypotension due to hypovolemia Qualified Code(s): E 86.1 - Hypovolemia (5) Acute hypoxemic respiratory failure: (6) Hydronephrosis: (7) CKD (chronic kidney disease): (8) COPD (chronic obstructive pulmonary disease): (9) Pulmonary hypertension: (10) Deep vein thrombosis, lower left extremity: (11) UTI (urinary tract infection): Plan 79-year-old lady with past medical history of severe pulmonary hypertension, left lower limb DVT, CKD presented to the ER because of generalized weakness, increased difficulty in breathing than her baseline, orthopnea found to have new anemia with concerns for GI bleed, persistent hypotension, right hydroureteronephrosis with urinary retention. Generalized weakness: Most likely in setting of acute anemia along with hypoxia. Seems more acute on chronic. PT/OT evaluation. Fall precautions. Acute anemia: Hemoglobin of 6 on admission. Iron deficiency anemia. FOBT positive. Post 2 unit of blood transfusion. Repeat hemoglobin in afternoon. Hold off on Eliquis for now. Surgery consulted. Plan for EGD and colonoscopy tomorrow. History of GI bleed in the past. EGD/colonoscopy back in 2017 showed patchy gastritis with diverticulitis. Continue with Protonix 40 mg twice daily. Clear liquid diet. Target hemoglobin around 8. Will transfuse accordingly. Shock: Hypovolemic in setting of acute anemia versus cardiogenic. Wean Levophed keeping mean artery pressure around 70. Hold off on home dose of antihypertensives. Acute hypoxia: Chronically on 3 L. History of COPD and severe pulmonary hypertension. ABG showing acute hypoxic and hypocapnic respiratory failure Repeat limited echocardiogram shows EF of 60% with grade 1 diastolic dysfunction, severe pulmonary hypertension with RVSP of 81 mmHg, moderate increase in right size, mild to moderate aortic valve stenosis with aortic valve area of 1.6. Fluid restriction to less than 1500 cc. IV Lasix 40 mg daily. Strict input output charting, daily weights. Likelihood of pulmonary embolism high. Patient does have DVT. Unfortunately CTA cannot be done given CKD. Holding off on anticoagulation for now given acute anemia. Nebulization with ipratropium, Xopenex every 6 hour, Pulmicort twice daily. Orthopnea: Mostly chronic. Continue to monitor. Head of the bed elevated 40 degrees. Acute urinary retention with right-sided hydroureteronephrosis: No calculi as per CT abdomen pelvis. Low catheterization. Will plan for renal ultrasound within next 48 hours. UTI: No symptoms. Patient has no leukocytosis. She did have significant urinary retention. Will follow-up urinalysis. For now empirically start on IV ceftriaxone. Check blood cultures, urine culture. CKD: Creatinine at baseline. Medical reconciliation done for nephrotoxic drugs. Appreciate CT abdomen pelvis. Monitor BMP in afternoon. Hypertension: On Cardizem 120 mg p.o. twice daily at home. Currently on hold because of hypotension. Monitor. Telemetry. Hyperglycemia: Blood sugars elevated. A1c 5.2. For now continue with sliding scale insulin. Monitor for hypoglycemia. Left lower limb DVT: Appreciate bilateral lower limb Dopplers. Concerning for DVT. Patient has been compliant with Eliquis. Holding off for now. Hold off on SCDs. Plan for the day: Hemoglobin has remained stable. Plan for EGD and colonoscopy today. N.p.o. for now. Continue with IV iron supplementation. Monitor hemoglobin every 12 hourly. Patient does have bilateral DVT with concerns for PE. CTA cannot be done because of CKD. Depending on the results of the EGD will plan to restart anticoagulation with heparin drip. If hemoglobin drops again most likely will have to consult cardiology for possible need for IVC filter. Patient is agreeable. Also concern for severe pulmonary hypertension with diastolic heart failure. Continue with IV Lasix 40 mg daily. Strict input charting, daily weights. Monitor BMP for contraction alkalosis. Replace potassium 40 mg orally. Maintain mean arterial pressure over 65. Continue to hold off on Levophed for now. Physical therapy. Out of bed to chair. Repeat hemoglobin and hematocrit along with BMP at 6 PM. Target hemoglobin more than 8. Found to have moderate . Patient might benefit from TAVR. Will discuss in detail with the patient with a possible refer for cardiothoracic team in [place]. Plan for repeat renal ultrasound today to monitor for right-sided hydronephrosis. Discharge plan: Patient does have significant physical deconditioning. Will benefit from discharge to SNF versus home with home health. Case management alerted. CODE STATUS: Patient states her son Hoang will be the DPOA. Will confirm with Mr. Bolton with if he would like to be the DPOA or not. Patient would like to be full code for now. Clear liquid diet SCD for DVT prophylaxis once DVT is ruled out. Protonix will be sufficient for PUD prophylaxis. Attestations 2 Medical Necessity Statement*: Requires further hospitalization for management of anemia in setting of possible GI bleed in a patient with anticoagulation for significant bilateral DVT, possible PE, respiratory failure with hypoxia, diastolic heart failure in setting of severe pulmonary hypertension Diagnoses Generalized weakness R53.1 Upper GI bleed K92.2 Anemia D64.9 Anemia type: iron deficiency Hypotension due to hypovolemia E86.1 Hypotension type: hypotension due to hypovolemia Acute hypoxemic respiratory failure J96.01 Hydronephrosis N13.30 CKD (chronic kidney disease) N18.9 COPD (chronic obstructive pulmonary disease) J44.9 Pulmonary hypertension I27.20 Deep vein thrombosis, lower left extremity I82.402 UTI (urinary tract infection) N39.0
[2024-07-17] MEDS: cefTRIAXone 1,000 mg SDV 1000 MG IVP (14:10)
--- NOTE | 2024-07-17 14:39 | ANES.PREANE2 ---
Pre-Anesthetic Assessment Height/Weight: Height 5 ft 2 in Weight 160 lb 14.999 oz Temp Pulse Resp BP Pulse Ox O2 Del Method O2 Flow Rate 97.9 F 87 16 120/59 99 Nasal Cannula 4 07/17/24 08:45 07/17/24 13:53 07/17/24 13:53 07/17/24 12:00 07/17/24 13:53 07/17/24 13:53 07/17/24 13:53 Preop Diagnosis: Acute anemia Operation Date: 07/17/24 13:30 Proposed Procedures p EGD(Not Applicable) - Booker Kennedy DO s Colonoscopy(Not Applicable) - Booker Kennedy DO Was Beta Marisela taken within 24 hours: N/A Was Clonidine taken within 24 hours: N/A Last intake: Intake Last Liquid Date 07/17/24 Last Liquid Time 10:00 Social No alcohol and No tobacco Exam alert, oriented x 3, clear to auscultation bilaterally and regular rate & rhythm Airway Submandibular: within normal limits Cervical ROM: within normal limits Mallampati: Class II Dentition: full Anesthetic Plan ASA status: 4E Anesthesia: MAC Other: No prior issues with anesthesia NPO since yesterday Patient admitted for hypovolemic shock. Levophed stopped this AM Severe pulmonary hypertension with significant tricuspid regurg. RVSP 81.2 moderate aortic stenosis, valve area 1.6 cm EKG showing sinus rhythm with incomplete RBBB Labs 07/17/2024 reviewed. Hemoglobin 7.7. NA 1 39K K+ 3.1, creatinine 2.1 Patient is a very high risk for anesthesia given pulmonary hypertension, discussion had with surgeon and patient. Plan for MAC anesthesia Medications/Allergies Home Medications Medication Instructions Recorded Confirmed Last Taken Type sertraline 50 mg tablet 50 mg PO DAILY 03/16/24 07/15/24 Unknown History albuterol sulfate 90 mcg/actuation 2 inh inhalation Q8H PRN shortness 03/22/24 07/15/24 Unknown Rx aerosol inhaler of breath or wheezing #6.7 grams apixaban 5 mg tablet (Eliquis) 2.5 mg (1/2 x 5 mg) PO 03/22/24 07/15/24 Unknown Rx BID@0900,2100 #120 tabs diltiazem HCl 120 mg 120 mg PO BID #60 caps 03/22/24 07/15/24 Unknown Rx capsule,extended release 24 hr (Cardizem CD) potassium chloride 10 mEq 10 meq PO .with bumex every otherd 03/22/24 07/15/24 Unknown Rx tablet,extended release day w bumex #30 tabs tiotropium bromide 18 mcg capsule 1 cap inhalation DAILY #60 03/22/24 07/15/24 Unknown Rx with inhalation device (Spiriva inhalations with HandiHaler) bumetanide 0.5 mg tablet 0.5 mg PO DAILY 07/15/24 07/15/24 Unknown History fluticasone propionate 45 2 inh inhalation BID 07/15/24 07/15/24 Unknown History mcg-salmeterol 21 mcg/actuation HFA inhaler (Advair HFA) mometasone-formoterol HFA 100 2 puff inhalation BID 07/15/24 07/15/24 Unknown History mcg-5 mcg/actuation aerosol inhaler (Dulera) Allergies Allergy/AdvReac Type Severity Reaction Status Date / Time penicillin G Allergy Severe ALGY-Swell Verified 01/27/21 08:51 Lip/Tongue/Throat Penicillins Allergy Unknown Verified 01/27/21 08:51 Current Medications Generic Name Dose Route Start Last Admin Trade Name Freq PRN Reason Stop Dose Admin Acetaminophen 650 mg 07/15/24 14:45 07/16/24 19:28 Acetaminophen 325 Mg Tablet PO 650 mg Q6H PRN Administration Mild/Mod Pain Or Temp >/= 101 Bisacodyl 10 mg 07/15/24 14:45 07/16/24 09:35 Bisacodyl 5 Mg Tablet PO 10 mg DAILY PRN Administration Constipation (see protocol) Protocol Budesonide 0.5 mg 07/15/24 20:00 07/17/24 08:13 Budesonide 0.5 Mg/2 Ml Neb INHALATION 0.5 mg BID.RESPIRATORY MAHNAZ Administration Ceftriaxone Sodium 1,000 mg 07/15/24 14:45 07/17/24 14:10 Ceftriaxone 1,000 Mg Sdv IVP 07/20/24 14:44 1,000 mg Q24H MAHNAZ Administration Protocol Folic Acid 1 mg 07/16/24 18:00 07/17/24 08:44 Folic Acid 1 Mg Tablet PO 1 mg BID MAHNAZ Administration Furosemide 40 mg 07/16/24 08:00 07/17/24 08:44 Furosemide 10 Mg/Ml Sdv 4ml IVP 40 mg Q24H MAHNAZ Administration Norepinephrine Bitartrate 4 mg in 250 mls @ 0 mls/hr 07/15/24 16:15 07/17/24 00:36 Levophed IV 0 mcg/min .Q0M MAHNAZ 0 mls/hr Titration Protocol Per Protocol Insulin Human Lispro 0 unit 07/16/24 08:00 07/17/24 11:45 Insulin Lispro 100 Unit/1 Ml SUBCUT Not Given WM&BEDTIME MAHNAZ Protocol Ipratropium [place] 0.5 mg 07/15/24 20:00 07/17/24 13:52 Ipratropium 0.5 Mg/2.5 Ml Neb INHALATION 0.5 mg Q6H.RESP MAHNAZ Administration Lanolin 1 applic 07/16/24 10:04 07/16/24 10:17 Lanolin Oint 7 Gm TOPICAL 1 applic PRN PRN Administration DRYNESS Levalbuterol HCl 0.63 mg 07/15/24 20:00 07/17/24 13:52 Levalbuterol 0.63 Mg/3 Ml Neb INHALATION 0.63 mg Q6H.RESP MAHNAZ Administration Pantoprazole Sodium 40 mg 07/15/24 14:45 07/17/24 14:11 Pantoprazole 40 Mg Sdv IVP 40 mg Q12H MAHNAZ Administration Sertraline HCl 50 mg 07/16/24 09:00 07/17/24 08:44 Sertraline 50 Mg Tablet PO 50 mg DAILY MAHNAZ Administration PFSH Anesthesia Medical History Urinary tract infection Deep vein thrombosis, lower left extremity 03/17- Nonocclusive thrombus distal left superficial femoral vein and popliteal vein. CKD (chronic kidney disease) Acute hypoxemic respiratory failure COPD (chronic obstructive pulmonary disease) Acute on chronic renal insufficiency Congestive heart failure Acute exacerbation of chronic obstructive airways disease Leukoplakia of bladder Diabetes mellitus History of recurrent UTI (urinary tract infection) Surgical History History of tonsillectomy and adenoidectomy H/O tubal ligation Family History Mother , AT AGE 91 Stroke Father , AT 99 No problems noted. Social History Smoking and tobacco/nicotine status: never used tobacco/nicotine Alcohol intake: never Marital status: / Current occupational status: retired Data Anesthesia 07/17/24 03:44 07/17/24 03:44 Short CBC 07/16/24 07/16/24 07/16/24 Range/Units 04:26 15:16 21:50 WBC 4.29 9.01 (3.29-11.43) 10^3/uL Hgb 8.10 L D 7.80 L 7.80 L (11.27-16.99) g/dL Hct 26.6 L 26.3 L 26.1 L (36-47) % MCV 86.9 87.9 (85-98) fl Plt Count 159 D 175 (157-399) 10^3/cmm Neut % (Auto) 89.1 82.8 % Neut # (Auto) 3.82 7.46 (1.8-7.7) 10^3/uL 07/17/24 Range/Units 03:44 WBC 5.81 (3.29-11.43) 10^3/uL Hgb 7.70 L (11.27-16.99) g/dL Hct 26.1 L (36-47) % MCV 88.5 (85-98) fl Plt Count 160 (157-399) 10^3/cmm Neut % (Auto) 81.1 % Neut # (Auto) 4.71 (1.8-7.7) 10^3/uL BMP 07/15/24 07/16/24 07/16/24 18:56 04:26 15:16 Sodium 136 141 139 Potassium 4.8 4.6 3.8 Chloride 102 104 102 Carbon Dioxide 18 L 24 22 BUN 63 H 60 H 65 H Creatinine 2.4 H 2.5 H 2.3 H Glucose 306 H 168 H 117 H Calcium 7.8 L 7.9 L 7.9 L 07/17/24 03:44 Sodium 139 Potassium 3.1 L Chloride 101 Carbon Dioxide 27 BUN 63 H Creatinine 2.1 H Glucose 144 H Calcium 8.1 L Cardiac Enzymes 07/15/24 Range/Units 18:56 Troponin T Hi Sens 6Hr 73.96 H (0-10) ng/L Troponin T Hi Sens 6Hr Delta -18.04 L (0-12) ng/L Liver Function 07/16/24 07/17/24 Range/Units 04:26 03:44 Total Bilirubin 1.9 H 0.4 (0.15-1.2) mg/dL AST 30 20 (0-32) U/L ALT 22 20 (0-33) U/L Alkaline Phosphatase 87 76 (35-105) U/L Albumin 3.7 3.5 (3.5-5.2) g/dL Urine 07/15/24 Range/Units 13:59 Urine Color Yellow (Yellow) Urine Appearance Turbid A (CLEAR) Urine pH 8.5 A (5-7) Ur Specific [place] 1.016 (1.005-1.030) Urine Protein 3+ A (Negative) Urine Glucose (UA) Negative (Normal) Urine Ketones Trace (Negative) Urine Nitrate Negative (Negative) Urine Bilirubin Negative (Negative) Ur Leukocyte Esterase 3+ A (Negative) Urine RBC 11-20 H (0-2) /hpf Urine WBC >100 H (0-5) /hpf Blood Bank 07/15/24 14:10 Blood Type A Positive Rho(D) Type Rh positive Antibody Screen Negative Coags 07/15/24 10:38 D-Dimer 0.60 H Microbiology 07/15/24 13:59 Urine Culture - Final Urine,Clean Catch 07/15/24 15:46 Blood Culture - Preliminary Blood NEGATIVE TO DATE 07/15/24 15:41 Blood Culture - Preliminary Blood NEGATIVE TO DATE 07/15/24 13:59 Bacterial Antigens - Final Urine Kidney Cardiac Studies: Echocardiogram 03/16/24 Echocardiogram Limited Views 07/15/24
--- NOTE | 2024-07-17 14:47 | USR_ITS ---
PROCEDURE INFORMATION: Exam: US Retroperitoneal, Complete, Kidneys and Bladder Exam date and time: 07/17/2024 3:31 PM Age: 79 years old Clinical indication: Abnormal findings; Abnormal radiologic finding of the abdomen; Radiologic exam and body structure: CT; Additional info: Right hydroureteronephrosis in setting of urinary bladder ob TECHNIQUE: Imaging protocol: Real-time ultrasound of the retroperitoneum with image documentation. Complete exam focused on the bilateral kidneys and urinary bladder. COMPARISON: [place] [id number] 07/15/2024 12:58 PM FINDINGS: Right kidney: Severely atrophic but otherwise morphologically normal right kidney. There is no hydronephrosis. No visible stones. The right kidney measures 6.9 x 2.4 x 2.1 cm for a volume of 18 cc. Left kidney: The left kidney is unremarkable. Cortical thickness and echotexture is normal. There is no hydronephrosis. No visible stones. The left kidney measures 9.6 x 5.2 x 4.4 cm for a volume of 116 cc. Urinary bladder: The urinary bladder is decompressed around a Low catheter bulb. US/US renal BI* [id number] IMPRESSION: 1. Interval resolution of right hydronephrosis since 07/15/2024. 2. Severely atrophic right kidney. Stable. 3. Normal left kidney. 4. Decompressed urinary bladder with Low catheter in place.
--- NOTE | 2024-07-17 15:05 | P.PN_ITS ---
Vitals/I&O/Wt Last Vital Signs Temp 97.9 F 07/17/24 08:45 Pulse 92 07/17/24 14:00 Resp 16 07/17/24 13:53 BP 120/59 07/17/24 12:00 Pulse Ox 99 07/17/24 13:53 O2 Del Method Nasal Cannula 07/17/24 13:53 O2 Flow Rate 4 07/17/24 13:53 07/17/24 07/17/24 07/17/24 06:59 14:59 22:59 Intake Total 42.5 / 1765.875 455 / 455 Output Total 1300 / 2800 1400 / 1400 Balance -1257.5 / -1034.125 -945 / -945 Weight last 48 hrs Weight 160 lb 14.999 oz Weight 162 lb 0.636 oz Weight 171 lb 15.369 oz Weight 165 lb 7.184 oz Weight 167 lb Physical Exam 2 Urinary Catheter Management: Low: Cath Placed During This Visit: yes Reason for Continuing Indwelling Catheter: Accurate Measurement of Urinary Output in Critically Ill Patients Urinary Catheter Date of Insertion: 07/15/24 Urinary Catheter Time of Insertion: 14:05 Data 07/17/24 03:44 07/17/24 03:44 Micro: Microbiology 07/15/24 13:59 Urine Culture - Final Urine,Clean Catch 07/15/24 15:46 Blood Culture - Preliminary Blood NEGATIVE TO DATE 07/15/24 15:41 Blood Culture - Preliminary Blood NEGATIVE TO DATE A&P Assessment and plan (1) GI bleed: (2) Acute blood loss anemia: (3) Iron deficiency anemia: (4) Chronic anticoagulation: (5) Generalized weakness: Plan EGD and colonoscopy The risks and benefits of the procedure, including bleeding, infection, intestinal perforation requiring surgery, missed lesion were explained to the patient. The patient is understanding of the risks and wishes to proceed. Medical management per primary Attestations 2 Medical Necessity Statement*: Per primary Coding Level of Care Code 03236 Diagnoses GI bleed K92.2 Acute blood loss anemia D62 Iron deficiency anemia D50.9 Chronic anticoagulation Z79.01 Generalized weakness R53.1
--- NOTE | 2024-07-17 15:09 | PC.OT ---
OT EVALUATION ATTEMPTED. PATIENT OFF UNIT FOR COLONOSCOPY. WILL ATTEMPT AGAIN TOMORROW.
--- NOTE | 2024-07-17 15:47 | ANE.PACU2 ---
Inpatient post-anesthesia follow up: Airway intact: Yes Vital signs: Temperature 97.9 F Pulse Rate 92 Respiratory Rate 29 Blood Pressure 120/59 Pulse Oximetry 90 Oxygen Delivery Me thod Nasal Cannula Oxygen Flow Rate 4 Fraction of Inspir ed Oxygen Hydration adequate: Yes Nausea and vomiting: No Pain level: 1 Mental status: Baseline
[2024-07-17] MEDS: morphine 4 mg/mL SDV 1 mL 2 MG IVP ×2 (17:09→21:17)
[2024-07-17 17:30] LABS: Glucose Point of Care 138 mg/dL (70-110)
[2024-07-17] MEDS: norepinephrine 4 MG/250 ML BAG 15 MG IV (17:33)
[2024-07-17 18:21] LABS: Hematocrit 32.2 % (36-47)
[2024-07-17 18:39] LABS: Anion Gap 15.8 (5-19); Blood Urea Nitrogen 55 mg/dL (8-23); Calcium 7.9 mg/dL (8.5-10.5); Carbon Dioxide 24 mmol/L (22-29); Chloride 106 mmol/L (98-107); Creatinine Clr Calc Pharmacy 19.3979; Glucose 134 mg/dL (65-115); Osmolality Calculated 311 mOsm/kg (285-295); Potassium 3.8 mmol/L (3.5-5.1); Sodium 142 mmol/L (136-145)
[2024-07-17 21:26] LABS: Glucose Point of Care 142 mg/dL (70-110)
[2024-07-17] MEDS: insulin lispro 100 unit/1 mL SUBCUT (21:32)
[2024-07-18] VITALS (85 sets, daily range): BP systolic 74–122; BP diastolic 42–81; PULSE 85–129; RESP 14–41; TEMP 36.3–36.6; O2SAT 78–100; BMI 29.7
[2024-07-18] MEDS: pantoprazole 40 mg SDV IVP ×2 (01:51→15:07)
[2024-07-18] MEDS: ipratropium 0.5 mg/2.5 mL Neb INHALATION ×4 (03:22→19:55)
[2024-07-18] MEDS: levalbuterol 0.63 mg/3 mL Neb INHALATION ×4 (03:22→19:55)
[2024-07-18 05:12] LABS: Basophils % 0.3 %; Eosinophils # 0.1 10^3/uL (0.0-0.8); Hematocrit 27.8 % (36-47); Lymphocytes # 0.6 10^3/uL (0.8-4.8); Lymphocytes % 4.4 %; Mean Corpuscular HGB Conc 29.5 g/dL (30-55); Mean Corpuscular Hemoglobin 26.7 pg (27-33); Mean Corpuscular Volume 90.6 fl (85-98); Mean Platelet Volume 9.5 fL (7.4-10.4); Monocytes # 0.6 10^3/uL (0.2-0.9); Monocytes % 4.6 %; Neutrophils # 11.47 10^3/uL (1.8-7.7); Neutrophils % 89.3 %; Nucleated Red Blood Cells % 0 %; Platelet Count 180 10^3/cmm (157-399); Red Blood Count 3.07 10^6/uL (3.85-5.65); Red Cell Distribution Width 16.8 % (12.1-15.1); White Blood Count 12.84 10^3/uL (3.29-11.43)
[2024-07-18 05:44] LABS: Alanine Aminotransferase 17 U/L (0-33); Albumin Level 3.3 g/dL (3.5-5.2); Alkaline Phosphatase 72 U/L (35-105); Aspartate Amino Transferase 15 U/L (0-32); Blood Urea Nitrogen 52 mg/dL (8-23); Calcium 7.7 mg/dL (8.5-10.5); Carbon Dioxide 26 mmol/L (22-29); Chloride 104 mmol/L (98-107); Creatinine Clr Calc Pharmacy 22.4608; Globulin 2.4 g/dL (1.3-4.6); Glucose 130 mg/dL (65-115); Osmolality Calculated 306 mOsm/kg (285-295); Sodium 140 mmol/L (136-145); Total Bilirubin 0.4 mg/dL (0.15-1.2); Total Protein 5.7 g/dL (6.6-8.7)
[2024-07-18] MEDS: budesonide 0.5 mg/2 mL Neb INHALATION ×2 (08:29→19:55)
[2024-07-18] MEDS: iron sucrose 200 MG in sodium chloride 0.9% (100 ml) 100 ML 220 MG IV (08:39)
[2024-07-18] MEDS: sertraline 50 mg Tablet PO (08:40)
[2024-07-18] MEDS: folic acid 1 mg Tablet PO ×2 (08:40→17:42)
[2024-07-18] MEDS: FUROsemide 10 mg/mL SDV 4mL 40 MG IVP (08:40)
[2024-07-18 09:22] LABS: Glucose Point of Care 140 mg/dL (70-110)
[2024-07-18 11:35] LABS: Glucose Point of Care 167 mg/dL (70-110)
[2024-07-18] MEDS: insulin lispro 100 unit/1 mL SUBCUT ×2 (11:35→17:44)
[2024-07-18] MEDS: acetaminophen 325 mg Tablet 650 MG PO (13:21)
--- NOTE | 2024-07-18 13:54 | P.PN_ITS ---
Subjective 2 Subjective: Patient seen and examined. Still having some mild diffuse abdominal pain, more so around her reducible hernia containing transverse colon but tolerating diet and no signs of GI bleeding Vitals/I&O/Wt Last Vital Signs Temp 98.4 F 07/20/24 13:51 Pulse 102 H 07/20/24 13:51 Resp 24 H 07/20/24 13:51 BP 100/49 07/20/24 13:51 Pulse Ox 93 07/20/24 13:51 O2 Del Method Nasal Cannula 07/20/24 12:00 O2 Flow Rate 4 07/20/24 12:00 07/19/24 07/20/24 07/20/24 22:59 06:59 14:59 Intake Total 1830 / 2310 240 / 2550 1280 / 1280 Output Total 950 / 950 300 / 1250 Balance 880 / 1360 -60 / 1300 1280 / 1280 Weight last 48 hrs Weight 176 lb 1.6 oz Weight 162 lb 0.636 oz Weight 163 lb 2.273 oz Physical Exam 2 Narrative: General: No acute distress, awake alert and oriented x 3 Abdomen: Soft, nondistended, mild tenderness around a reducible umbilical hernia containing transverse colon, no guarding or rebound Urinary Catheter Management: Low: Cath Placed During This Visit: yes Reason for Continuing Indwelling Catheter: Accurate Measurement of Urinary Output in Critically Ill Patients Urinary Catheter Date of Insertion: 07/15/24 Urinary Catheter Time of Insertion: 14:05 Data 07/20/24 03:23 07/20/24 03:23 A&P Assessment and plan (1) Iron deficiency anemia: (2) Chronic anticoagulation: (3) Generalized weakness: (4) Ischemic colitis: Mild, clinical diagnosis based on sloughing of mucosa during colonoscopy. Awaiting biopsy results Plan Continue regular diet Medical management per primary No planned further surgical intervention Will follow Attestations 2 Medical Necessity Statement*: per primary Coding Level of Care Code 19457 Diagnoses Iron deficiency anemia D50.9 Chronic anticoagulation Z79.01 Generalized weakness R53.1 Ischemic colitis K55.9
--- NOTE | 2024-07-18 14:19 | P.PN_ITS ---
Subjective 2 Subjective: No acute events overnight. Patient underwent EGD and colonoscopy yesterday. Post procedure she was on Levophed of 6 which has been weaned off overnight and currently running at 1 with mean artery pressure over 65. Patient states she is feeling better. Denies any nausea, vomiting. States she is hungry. Waiting to work with physical therapy. Vitals/I&O/Wt Last Vital Signs Temp 97.8 F 07/18/24 04:00 Pulse 99 07/18/24 12:00 Resp 20 H 07/18/24 12:00 BP 98/50 07/18/24 12:00 Pulse Ox 99 07/18/24 12:00 O2 Del Method Nasal Cannula 07/18/24 08:30 O2 Flow Rate 3 07/18/24 08:30 07/17/24 07/18/24 07/18/24 22:59 06:59 14:59 Intake Total 411.125 / 866.125 449.75 / 1315.875 241.625 / 241.625 Output Total 1100 / 2500 Balance 411.125 / -533.875 -650.25 / -1184.125 241.625 / 241.625 Weight last 48 hrs Weight 73.709 kg Weight 73.093 kg Weight 73 kg Weight 73.5 kg Physical Exam 2 Narrative: HEENT: PERRLA, pupils bilaterally equal and reactive Chest: Bilateral bronchial breath sounds all over lung morris with occasional rhonchi, JVD elevated CVS: S1-S2 regular, soft pansystolic murmur at fourth intercostal space left retrosternal, no tachycardia, no gallops, no rubs Abdomen: Soft, nontender, no organomegaly, bowel sounds present Neuro: No focal deficits, no facial deformity, AO x3, Const: COMMON NORMALS: patient oriented x3 and alert GENERAL APPEARANCE: c ooperative, in distress, ill appearing, frail appearing and Edematous O RIENTATION/CONSCIOUSNESS: Yes awake, Yes oriented to person, Yes oriented to place and Yes oriented to time Neuro: COMMON NORMALS: patient oriented x3 SENSORIUM/ORIENTATION: Yes alert, Yes oriented to person, Yes oriented to place and Yes oriented to time Urinary Catheter Management: Low: Cath Placed During This Visit: yes Reason for Continuing Indwelling Catheter: Accurate Measurement of Urinary Output in Critically Ill Patients Urinary Catheter Date of Insertion: 11/11/24 Urinary Catheter Time of Insertion: 14:05 Data 07/18/24 04:35 07/18/24 04:35 Micro: Microbiology 07/15/24 13:59 Urine Culture - Final Urine,Clean Catch A&P Assessment and plan (1) Generalized weakness: (2) Upper GI bleed: (3) Anemia: Qualifiers: Anemia type: iron deficiency (4) Hypotension: Qualifiers: Hypotension type: hypotension due to hypovolemia Qualified Code(s): E 86.1 - Hypovolemia (5) Acute hypoxemic respiratory failure: (6) Hydronephrosis: (7) CKD (chronic kidney disease): (8) COPD (chronic obstructive pulmonary disease): (9) Pulmonary hypertension: (10) Deep vein thrombosis, lower left extremity: (11) UTI (urinary tract infection): Plan 79-year-old lady with past medical history of severe pulmonary hypertension, left lower limb DVT, CKD presented to the ER because of generalized weakness, increased difficulty in breathing than her baseline, orthopnea found to have new anemia with concerns for GI bleed, persistent hypotension, right hydroureteronephrosis with urinary retention. Generalized weakness: Most likely in setting of acute anemia along with hypoxia. Seems more acute on chronic. PT/OT evaluation. Fall precautions. Acute anemia: Hemoglobin of 6 on admission. Iron deficiency anemia. FOBT positive. Post 2 unit of blood transfusion. Hemoglobin stable. Holding off on Eliquis. Underwent EGD and colonoscopy on 07/17. EGD within normal limits. On colonoscopy concerns for extensive small diverticulosis with entire mucosa somewhat ischemic and sloughed off which bled easily on touch. Surgery recommending holding off on anticoagulation for next few weeks. Continue with Protonix 40 mg twice daily. Start on full liquid diet. Target hemoglobin around 8. Will transfuse accordingly. Shock: Hypovolemic in setting of acute anemia versus cardiogenic. Again required Levophed post EGD/colonoscopy. Being weaned down giving me pressure was 65. Holding off on antihypertensive. Acute hypoxia: Resolved. Chronically on 3 L. History of COPD and severe pulmonary hypertension. ABG showing acute hypoxic and hypocapnic respiratory failure Repeat limited echocardiogram shows EF of 60% with grade 1 diastolic dysfunction, severe pulmonary hypertension with RVSP of 81 mmHg, moderate increase in right size, mild to moderate aortic valve stenosis with aortic valve area of 1.6. Fluid restriction to less than 1500 cc. IV Lasix 40 mg daily. Strict input output charting, daily weights. Likelihood of pulmonary embolism high. Patient does have DVT. Unfortunately CTA cannot be done given CKD. Holding off on anticoagulation for now given acute anemia. Given recommendations of holding off on anticoagulation for next few weeks will consult cardiology for IVC filter placement. Nebulization with ipratropium, Xopenex every 6 hour, Pulmicort twice daily. Orthopnea: Mostly chronic. Continue to monitor. Head of the bed elevated 40 degrees. Acute urinary retention with right-sided hydroureteronephrosis: No calculi as per CT abdomen pelvis. Low catheterization. Repeat renal ultrasound shows resolution of right-sided hydroureteronephrosis. UTI: No symptoms. Patient has no leukocytosis. She did have significant urinary retention. Appreciate urinalysis. Blood culture and urine cultures so far negative. Continue with IV ceftriaxone to finish a 5-day course. Last dose on 07/20. CKD: Creatinine at baseline. Medical reconciliation done for nephrotoxic drugs. Appreciate CT abdomen pelvis. Monitor BMP in morning. Hypertension: On Cardizem 120 mg p.o. twice daily at home. Currently on hold because of hypotension. Monitor. Telemetry. Hyperglycemia: Blood sugars elevated. A1c 5.2. For now continue with sliding scale insulin. Monitor for hypoglycemia. Left lower limb DVT: Appreciate bilateral lower limb Dopplers. Concerning for acute DVT. Plan for IVC filter as above given holding off on anticoagulation for next few weeks. Discharge plan: Patient does have significant physical deconditioning. Will benefit from discharge to SNF versus home with home health. Case management alerted. CODE STATUS: Patient states her son Hoang will be the DPOA. Will confirm with Mr. Bolton with if he would like to be the DPOA or not. Patient would like to be full code for now. Full liquid diet SCD for DVT prophylaxis once DVT is ruled out. Protonix will be sufficient for PUD prophylaxis. Attestations 2 Medical Necessity Statement*: Requires further hospitalization for management of shock in setting of anemia from lower GI bleed Levophed is weaned off, acute DVT while anticoagulation is held, IVC filter placement, CKD with right hydroureteronephrosis in setting of urinary retention Critical Care Time: The high probability of a clinically significant, sudden or life threatening deterioration of the patient's [cardiac, hematological, GI] system(s) required my full and direct attention, intervention and personal management. The critical care time is as shown. This time is in addition to time spent performing any reported procedures but includes the following: [x] Data and vital sign review and interpretation [x] Patient assessment, examination and intervention [x] Documentation [x] Medication orders and management Critical Care Time (min): 60 Coding Level of Care Code Critical Care >/= 30 minutes Critical care time (in minutes): 60 The high probability of a clinically significant, sudden or life threatening deterioration, as referenced in this documentation, required my full and direct attention, intervention and personal management. The critical care time shown is in addition to time spent performing any reported separately billable procedures and includes the following: [x] Data and vital sign review and interpretation [x ] Patient assessment, examination and intervention [x] Medication orders and management [x] Patient/Family updates as able [x] Care Coordination and Documentation. Diagnoses Generalized weakness R53.1 Upper GI bleed K92.2 Anemia D64.9 Anemia type: iron deficiency Hypotension due to hypovolemia E86.1 Hypotension type: hypotension due to hypovolemia Acute hypoxemic respiratory failure J96.01 Hydronephrosis N13.30 CKD (chronic kidney disease) N18.9 COPD (chronic obstructive pulmonary disease) J44.9 Pulmonary hypertension I27.20 Deep vein thrombosis, lower left extremity I82.402 UTI (urinary tract infection) N39.0
[2024-07-18] MEDS: cefTRIAXone 1,000 mg SDV 1000 MG IVP (15:08)
[2024-07-18] MEDS: morphine 4 mg/mL SDV 1 mL 2 MG IVP (15:48)
--- NOTE | 2024-07-18 16:45 | PM.CONSULT ---
Documented by User: Park Donnelly NP 07/18/24 16:56 Providers/Reason For Consult Consulting Physician/Specialty*: Chinedu Batres MD Reason for Consult*: IVC filter placement Requesting Physician: Rudy Day MD Attending Physician: Rudy Day MD Primary Care Provider: Jeff Banegas DO History of Present Illness History of Present Illness Susan Resendiz is a 79 year old female who presented to the hospital with weakness. She reported that she was unable to stand up off the floor and had severe shortness of breath. When she came to the hospital she was found to be anemic, with a hemoglobin of 6. She has a history of iron deficiency anemia and GI bleed. She was fecal occult blood test positive in the ER. She denies any hematochezia and/or melena however. 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 She denies chest pain or shortness of breath at this time. H&H has improved. She underwent colonoscopy and upper GI. She is found to have severe diverticulosis and some ischemic bowel which was sloughing off and bleeding easy. It was recommended by surgery to hold Eliquis for at least 2 weeks. Review of Systems Narrative: Consitutional: denies fever, chills, body aches, or changes in appetite, denies abnormal weight loss Card: Denies chest pain, palpitations, irregular heart rhythm, edema, syncope, shortness of breath, orthopnea, leg pain with exertion Resp: Denies shortness of breath, denies hemoptysis, denies cough GI: denies abdominal pain, denies nausea or voimting, denies blood in stool Musc: Denies extremity pain, denies limited range of motion or recent injury Skin: Denies rash, lesions, or wounds, denies changes to skin color Neuro: Denies nubmness in extremities, h/a, s/s of stroke Ger: Denies easy bruiding/bleeding Medications/Allergies Home Medications Medication Instructions Recorded Confirmed Last Taken Type sertraline 50 mg tablet 50 mg PO DAILY 03/16/24 07/15/24 Unknown History albuterol sulfate 90 mcg/actuation 2 inh inhalation Q8H PRN shortness 03/22/24 07/15/24 Unknown Rx aerosol inhaler of breath or wheezing #6.7 grams apixaban 5 mg tablet (Eliquis) 2.5 mg (1/2 x 5 mg) PO 03/22/24 07/15/24 Unknown Rx BID@0900,2100 #120 tabs diltiazem HCl 120 mg 120 mg PO BID #60 caps 03/22/24 07/15/24 Unknown Rx capsule,extended release 24 hr (Cardizem CD) potassium chloride 10 mEq 10 meq PO .with bumex every otherd 03/22/24 07/15/24 Unknown Rx tablet,extended release day w bumex #30 tabs tiotropium bromide 18 mcg capsule 1 cap inhalation DAILY #60 03/22/24 07/15/24 Unknown Rx with inhalation device (Spiriva inhalations with HandiHaler) bumetanide 0.5 mg tablet 0.5 mg PO DAILY 07/15/24 07/15/24 Unknown History fluticasone propionate 45 2 inh inhalation BID 07/15/24 07/15/24 Unknown History mcg-salmeterol 21 mcg/actuation HFA inhaler (Advair HFA) mometasone-formoterol HFA 100 2 puff inhalation BID 07/15/24 07/15/24 Unknown History mcg-5 mcg/actuation aerosol inhaler (Dulera) Allergies Allergy/AdvReac Type Severity Reaction Status Date / Time penicillin G Allergy Severe ALGY-Swell Verified 01/27/21 08:51 Lip/Tongue/Throat Penicillins Allergy Unknown Verified 01/27/21 08:51 Current Medications Generic Name Dose Route Start Last Admin Trade Name Emanuel PRN Reason Stop Dose Admin Acetaminophen 650 mg 07/15/24 14:45 07/18/24 13:21 Acetaminophen 325 Mg Tablet PO 650 mg Q6H PRN Administration Mild/Mod Pain Or Temp >/= 101 Bisacodyl 10 mg 07/15/24 14:45 07/16/24 09:35 Bisacodyl 5 Mg Tablet PO 10 mg DAILY PRN Administration Constipation (see protocol) Protocol Budesonide 0.5 mg 07/15/24 20:00 07/18/24 08:29 Budesonide 0.5 Mg/2 Ml Neb INHALATION 0.5 mg BID.RESPIRATORY MAHNAZ Administration Ceftriaxone Sodium 1,000 mg 07/15/24 14:45 07/18/24 15:08 Ceftriaxone 1,000 Mg Sdv IVP 07/20/24 14:44 1,000 mg Q24H MAHNAZ Administration Protocol Folic Acid 1 mg 07/16/24 18:00 07/18/24 08:40 Folic Acid 1 Mg Tablet PO 1 mg BID MAHNAZ Administration Furosemide 40 mg 07/16/24 08:00 07/18/24 08:40 Furosemide 10 Mg/Ml Sdv 4ml IVP 40 mg Q24H MAHNAZ Administration Norepinephrine Bitartrate 4 mg in 250 mls @ 0 mls/hr 07/15/24 16:15 07/18/24 11:25 Levophed IV 0 mcg/min .Q0M MAHNAZ 0 mls/hr Titration Protocol Per Protocol Iron Sucrose 200 mg/ Sodium 110 mls @ 220 mls/hr 07/18/24 09:00 07/18/24 09:09 Chloride IV 07/20/24 09:29 Infused Q24H MAHNAZ Infusion Insulin Human Lispro 0 unit 07/16/24 08:00 07/18/24 11:35 Insulin Lispro 100 Unit/1 Ml SUBCUT 4 unit WM&BEDTIME MAHNAZ Administration Protocol Ipratropium Alligator 0.5 mg 07/15/24 20:00 07/18/24 14:27 Ipratropium 0.5 Mg/2.5 Ml Neb INHALATION 0.5 mg Q6H.RESP MAHNAZ Administration Lanolin 1 applic 07/16/24 10:04 07/16/24 10:17 Lanolin Oint 7 Gm TOPICAL 1 applic PRN PRN Administration DRYNESS Levalbuterol HCl 0.63 mg 07/15/24 20:00 07/18/24 14:27 Levalbuterol 0.63 Mg/3 Ml Neb INHALATION 0.63 mg Q6H.RESP MAHNAZ Administration Morphine Sulfate 2 mg 07/15/24 14:45 07/18/24 15:48 Morphine 4 Mg/Ml Sdv 1 Ml IVP 2 mg Q4H PRN Administration SEVERE PAIN Pantoprazole Sodium 40 mg 07/15/24 14:45 07/18/24 15:07 Pantoprazole 40 Mg Sdv IVP 40 mg Q12H MAHNAZ Administration Sertraline HCl 50 mg 07/16/24 09:00 07/18/24 08:40 Sertraline 50 Mg Tablet PO 50 mg DAILY MAHNAZ Administration PFSH Acute PFSH: Medical History Urinary tract infection Deep vein thrombosis, lower left extremity 03/17- Nonocclusive thrombus distal left superficial femoral vein and popliteal vein. CKD (chronic kidney disease) Acute hypoxemic respiratory failure COPD (chronic obstructive pulmonary disease) Acute on chronic renal insufficiency Congestive heart failure Acute exacerbation of chronic obstructive airways disease Leukoplakia of bladder Diabetes mellitus History of recurrent UTI (urinary tract infection) Surgical History History of tonsillectomy and adenoidectomy H/O tubal ligation Family History Mother , AT AGE 91 Stroke Father , AT 99 No problems noted. Social History Smoking and tobacco/nicotine status: never used tobacco/nicotine Alcohol intake: never Marital status: / Current occupational status: retired Vitals/I&O/Wt Last Vital Signs Temp 97.8 F 07/18/24 04:00 Pulse 97 07/18/24 15:34 Resp 20 H 07/18/24 15:48 BP 98/50 07/18/24 12:00 Pulse Ox 95 07/18/24 14:29 O2 Del Method Nasal Cannula 07/18/24 14:29 O2 Flow Rate 3 07/18/24 14:29 07/18/24 07/18/24 07/18/24 06:59 14:59 22:59 Intake Total 449.75 / 1315.875 241.625 / 241.625 Output Total 1100 / 2500 Balance -650.25 / -1184.125 241.625 / 241.625 Weight last 48 hrs Weight 162 lb 8 oz Weight 161 lb 2.273 oz Weight 160 lb 14.999 oz Weight 162 lb 0.636 oz Physical Exam Narrative: General: No apparent distress, healthy appearing, well nourished Muskuloskeletal: Full ROM Lymphatic: no lymphedema noted Respiratory: Normal respiratory effort, clear to auscultation bilaterally throughout all lung morris, no use of accessory muscles Cardio: No JVD, regular rate, regular rhythm, S1 S2 normal, no murmurs, peripheral pulses 2+ radial palpated bilaterally Extremities: Full ROM, normal, normal capillary refill, no cyanosis or edema Neuro: Alert and oriented x4, no focal motor deficits Psych: Affect normal, denies suicidal ideation, mental status grossly normal Urinary Catheter Management: Low: Cath Placed During This Visit: yes Reason for Continuing Indwelling Catheter: Accurate Measurement of Urinary Output in Critically Ill Patients Urinary Catheter Date of Insertion: 07/15/24 Urinary Catheter Time of Insertion: 14:05 Data 07/19/24 05:16 07/19/24 05:16 Micro: Microbiology 07/15/24 13:59 Urine Culture - Final Urine,Clean Catch Other data: Venous duplex CONCLUSIONS Partial non occlusive DVT right Popliteal vein. Probably chronic nonocclusive DVT left SFV. A&P Assessment and plan (1) Chronic anticoagulation: Anticoagulation being held at this time due to GI bleed (2) GI bleed: As stated above per hospitalist team and surgical team Qualifiers: GI bleed type/associated pathology: unspecified gastrointestinal hemorrhage type Qualified Code(s): K92.2 - Gastrointestinal hemorrhage, unspecified (3) Deep vein thrombosis, lower left extremity: Chronic with history of pulmonary embolism Qualifiers: Affected thrombotic vein of extremity: unspecified vein of extremity Chronicity: unspecified Qualified Code(s): I82.402 - Acute embolism and thrombosis of unspecified deep veins of left lower extremity Plan At this time the patient needs to hold Eliquis for at least 2 weeks. Due to previous history of recurrent DVT and PE, it is recommended patient undergo IVC filter placement. Patient was educated on risks and benefits of this by Dr. Batres including but not limited to bleeding infection anesthetic complications limb loss stroke among others. She verbalized full understanding and agrees to the risks of this. We will plan on doing this tomorrow morning around 6 AM. Thank you for allowing us to take care of this very pleasant 79-year-old female Consult Attestations Medical Necessity Statement: Deferred to primary. Coding Level of Care Code Acute Code for Chg Fwd Diagnoses Chronic anticoagulation Z79.01 Gastrointestinal hemorrhage, unspecified gastrointestinal hemorrhage type K92.2 GI bleed type/associated pathology: unspecified gastrointestinal hemorrhage type Deep vein thrombosis (DVT) of left lower extremity, unspecified chronicity, unspecified vein I82.402 Affected thrombotic vein of extremity: unspecified vein of extremity Chronicity: unspecified Documented by User: Chinedu Batres MD 07/19/24 07:57 Medications/Allergies Home Medications Medication Instructions Recorded Confirmed Last Taken Type sertraline 50 mg tablet 50 mg PO DAILY 03/16/24 07/15/24 Unknown History albuterol sulfate 90 mcg/actuation 2 inh inhalation Q8H PRN shortness 03/22/24 07/15/24 Unknown Rx aerosol inhaler of breath or wheezing #6.7 grams apixaban 5 mg tablet (Eliquis) 2.5 mg (1/2 x 5 mg) PO 03/22/24 07/15/24 Unknown Rx BID@0900,2100 #120 tabs diltiazem HCl 120 mg 120 mg PO BID #60 caps 03/22/24 07/15/24 Unknown Rx capsule,extended release 24 hr (Cardizem CD) potassium chloride 10 mEq 10 meq PO .with bumex every otherd 03/22/24 07/15/24 Unknown Rx tablet,extended release day w bumex #30 tabs tiotropium bromide 18 mcg capsule 1 cap inhalation DAILY #60 03/22/24 07/15/24 Unknown Rx with inhalation device (Spiriva inhalations with HandiHaler) bumetanide 0.5 mg tablet 0.5 mg PO DAILY 07/15/24 07/15/24 Unknown History fluticasone propionate 45 2 inh inhalation BID 07/15/24 07/15/24 Unknown History mcg-salmeterol 21 mcg/actuation HFA inhaler (Advair HFA) mometasone-formoterol HFA 100 2 puff inhalation BID 07/15/24 07/15/24 Unknown History mcg-5 mcg/actuation aerosol inhaler (Dulera) Allergies Allergy/AdvReac Type Severity Reaction Status Date / Time penicillin G Allergy Severe ALGY-Swell Verified 01/27/21 08:51 Lip/Tongue/Throat Penicillins Allergy Unknown Verified 01/27/21 08:51 PFSH Acute PFSH: Medical History Urinary tract infection Deep vein thrombosis, lower left extremity 03/17- Nonocclusive thrombus distal left superficial femoral vein and popliteal vein. CKD (chronic kidney disease) Acute hypoxemic respiratory failure COPD (chronic obstructive pulmonary disease) Acute on chronic renal insufficiency Congestive heart failure Acute exacerbation of chronic obstructive airways disease Leukoplakia of bladder Diabetes mellitus History of recurrent UTI (urinary tract infection) Surgical History History of tonsillectomy and adenoidectomy H/O tubal ligation Family History Mother , AT AGE 91 Stroke Father , AT 99 No problems noted. Social History Smoking and tobacco/nicotine status: never used tobacco/nicotine Alcohol intake: never Marital status: / Current occupational status: retired Physical Exam Urinary Catheter Management: Low: Cath Placed During This Visit: yes Data 07/19/24 05:16 07/19/24 05:16 A&P Assessment and plan (1) Chronic anticoagulation: (2) GI bleed: Qualifiers: GI bleed type/associated pathology: unspecified gastrointestinal hemorrhage type Qualified Code(s): K92.2 - Gastrointestinal hemorrhage, unspecified (3) Deep vein thrombosis, lower left extremity: Qualifiers: Affected thrombotic vein of extremity: unspecified vein of extremity Chronicity: unspecified Qualified Code(s): I82.402 - Acute embolism and thrombosis of unspecified deep veins of left lower extremity Plan Patient was evaluated and cared for in conjunction with an advanced practice practitioner. I personally examined the patient and reviewed the chart and all pertinent data including imaging, telemetry, and laboratory results. I discussed the patient in detail with the advanced practice practitioner. Please see their note for complete H&P testing result and agreed upon plan of care for the patient. 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 We have been asked to assist in this care. GENERAL: Patient is alert, awake and oriented x3. HEART: Regular S1 and S2. No murmur, rub or gallop. LUNGS: Clear to auscultate bilaterally. CENTRAL NERVOUS SYSTEM: Grossly nonfocal. EXTREMITIES: Lower extremities with out edema bilaterally. Assessment and plan #1 DVT/history of pulmonary embolism #2 Anemia with possible GI loss #3 inability to take anticoagulation We agree with patient high risk profile for recurrent DVT leading to pulmonary embolism since she is bedbound, we therefore proceed with IVC filter placement which would be retrievable. Plan to remove IVC filter in 3 months when she will be tolerating anticoagulation. Patient has been explained all risk-benefit and alternative for the procedure she would like to proceed with it. 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 Patient was evaluated and cared for in conjunction with an advanced practice practitioner. I personally examined the patient and reviewed the chart and all pertinent data including imaging, telemetry, and laboratory results. I discussed the patient in detail with the advanced practice practitioner. Please see their note for complete H&P testing result and agreed upon plan of care for the patient. At this time the patient needs to hold Eliquis for at least 2 weeks. Due to previous history of recurrent DVT and PE, it is recommended patient undergo IVC filter placement. Patient was educated on risks and benefits of this by Dr. Batres including but not limited to bleeding infection anesthetic complications pulmonary embolism due to dislodging of the thrombus among others. She verbalized full understanding and agrees to the risks of this. We will plan on doing this tomorrow morning around 6 AM. Thank you for allowing us to take care of this very pleasant 79-year-old female Coding Level of Care Code Acute Code for Chg Fwd Diagnoses Chronic anticoagulation Z79.01 Gastrointestinal hemorrhage, unspecified gastrointestinal hemorrhage type K92.2 GI bleed type/associated pathology: unspecified gastrointestinal hemorrhage type Deep vein thrombosis (DVT) of left lower extremity, unspecified chronicity, unspecified vein I82.402 Affected thrombotic vein of extremity: unspecified vein of extremity Chronicity: unspecified
[2024-07-18 17:51] LABS: Glucose Point of Care 145 mg/dL (70-110)
[2024-07-18 20:45] LABS: Glucose Point of Care 119 mg/dL (70-110)
[2024-07-19] VITALS (28 sets, daily range): BP systolic 87–119; BP diastolic 44–57; PULSE 91–113; RESP 10–31; TEMP 36.7–37.5; O2SAT 90–100; BMI 29.6
[2024-07-19] MEDS: levalbuterol 0.63 mg/3 mL Neb INHALATION ×3 (01:32→19:11)
[2024-07-19] MEDS: ipratropium 0.5 mg/2.5 mL Neb INHALATION ×3 (01:32→19:11)
[2024-07-19] MEDS: pantoprazole 40 mg SDV IVP ×2 (03:10→14:35)
--- NOTE | 2024-07-19 05:18 | PC.NURSE ---
Cleaned bilat groins with chlorhexidine wipes and clipped hair to bilat groins. Low care done. Cleaned patient with bath wipes, under pads changed. Positioned in bed for comfort.
[2024-07-19 05:43] LABS: Basophils % 0.2 %; Eosinophils # 0.3 10^3/uL (0.0-0.8); Eosinophils % 2.1 %; Hematocrit 27.2 % (36-47); Lymphocytes # 0.7 10^3/uL (0.8-4.8); Lymphocytes % 5.7 %; Mean Corpuscular HGB Conc 30.1 g/dL (30-55); Mean Corpuscular Hemoglobin 27.6 pg (27-33); Mean Corpuscular Volume 91.6 fl (85-98); Mean Platelet Volume 9.9 fL (7.4-10.4); Monocytes # 0.5 10^3/uL (0.2-0.9); Monocytes % 4.5 %; Neutrophils # 10.38 10^3/uL (1.8-7.7); Neutrophils % 87.2 %; Nucleated Red Blood Cells % 0 %; Platelet Count 155 10^3/cmm (157-399); Red Blood Count 2.97 10^6/uL (3.85-5.65); Red Cell Distribution Width 16.7 % (12.1-15.1); White Blood Count 11.91 10^3/uL (3.29-11.43)
[2024-07-19 06:10] LABS: Alanine Aminotransferase 13 U/L (0-33); Albumin Level 3.3 g/dL (3.5-5.2); Alkaline Phosphatase 77 U/L (35-105); Anion Gap 13.9 (5-19); Aspartate Amino Transferase 11 U/L (0-32); Blood Urea Nitrogen 57 mg/dL (8-23); Calcium 7.7 mg/dL (8.5-10.5); Carbon Dioxide 28 mmol/L (22-29); Chloride 98 mmol/L (98-107); Creatinine Clr Calc Pharmacy 20.4588; Globulin 2.6 g/dL (1.3-4.6); Glucose 144 mg/dL (65-115); Osmolality Calculated 300 mOsm/kg (285-295); Potassium 3.9 mmol/L (3.5-5.1); Sodium 136 mmol/L (136-145); Total Bilirubin 0.3 mg/dL (0.15-1.2); Total Protein 5.9 g/dL (6.6-8.7)
[2024-07-19 06:12] LABS: Magnesium 2.2 mg/dL (1.7-2.3)
--- NOTE | 2024-07-19 06:36 | PC.NURSE ---
To phlebotomy lab assistant via bed with phlebotomy lab assistant team at bedside.
--- NOTE | 2024-07-19 06:46 | W.PM.OPSUD ---
Surgery/Procedure H&P Update DATE OF PROCEDURE: July 19, 2024 DATE H&P PERFORMED: 07/18/24 H&P UPDATE INFORMATION: I have reviewed H&P completed within last 30 days, I have examined patient prior to procedure, No changes to prior documentation and Changes to prior documentation as noted here PREOP DIAGNOSIS: Acute anemia PLANNED PROCEDURE: Operation Date: 07/17/24 13:30 Proposed Procedures p EGD(Not Applicable) - Booker Kennedy DO s Colonoscopy(Not Applicable) - Booker Kennedy DO PATIENT REASSESSED PRIOR TO SEDATION, WITH NO CHANGE NOTED: Yes PHYSICAL EXAM: alert, oriented x 3, clear to auscultation bilaterally, regular rate & rhythm and operative site marked AIRWAY EVAL/ANESTHESIA PLAN: ASA II, Risks, benefits & alternatives of sedation and/or procedure discussed and Patient agrees to continue as planned ADDITIONAL INFORMATION: Mallampati 2
[2024-07-19 08:12] LABS: Glucose Point of Care 134 mg/dL (70-110)
[2024-07-19] MEDS: iron sucrose 200 MG in sodium chloride 0.9% (100 ml) 100 ML 220 MG IV (09:12)
[2024-07-19] MEDS: sodium chloride 0.9% 1,000 ML 50 ML IV (09:12)
[2024-07-19] MEDS: folic acid 1 mg Tablet PO ×2 (09:13→17:26)
[2024-07-19] MEDS: sertraline 50 mg Tablet PO (09:13)
[2024-07-19] MEDS: FUROsemide 40 mg Tablet PO (09:14)
[2024-07-19 11:28] LABS: Glucose Point of Care 188 mg/dL (70-110)
[2024-07-19] MEDS: insulin lispro 100 unit/1 mL SUBCUT ×2 (11:36→21:22)
--- NOTE | 2024-07-19 12:09 | PC.SOCIAL ---
IMM Updated Updated pt on IMM. No questions voiced. Provided pt a copy. Initialed, dated, & timed copy in chart.
[2024-07-19] MEDS: morphine 4 mg/mL SDV 1 mL 2 MG IVP (12:54)
--- NOTE | 2024-07-19 12:57 | PC.OT ---
Pt declines OT treatment due to feeling fatigued; will attempt again at a later time.
--- NOTE | 2024-07-19 13:26 | P.PN_ITS ---
Subjective 2 Subjective: No acute vents overnight. Underwent IVC filter placement today morning. Patient states she is feeling tired otherwise denies any nausea, vomiting, headache. Off Levophed. Saturating over 90% on 3 L. Appreciate urine output. Vitals/I&O/Wt Last Vital Signs Temp 99.2 F 07/19/24 09:00 Pulse 91 07/19/24 12:09 Resp 20 H 07/19/24 12:54 BP 115/56 07/19/24 12:09 Pulse Ox 91 07/19/24 12:54 O2 Del Method Nasal Cannula 07/19/24 12:09 O2 Flow Rate 3 07/19/24 12:09 07/18/24 07/19/24 07/19/24 22:59 06:59 14:59 Intake Total 1150 / 1391.625 480 / 480 Output Total 750 / 750 500 / 1250 Balance 400 / 641.625 -500 / 141.625 480 / 480 Weight last 48 hrs Weight 73.5 kg Weight 74 kg Weight 73.709 kg Weight 73.093 kg Physical Exam 2 Narrative: HEENT: PERRLA, pupils bilaterally equal and reactive Chest: Bilateral bronchial breath sounds all over lung morris with occasional rhonchi, JVD elevated CVS: S1-S2 regular, soft pansystolic murmur at fourth intercostal space left retrosternal, no tachycardia, no gallops, no rubs Abdomen: Soft, nontender, no organomegaly, bowel sounds present Neuro: No focal deficits, no facial deformity, AO x3, Const: COMMON NORMALS: patient oriented x3 and alert GENERAL APPEARANCE: c ooperative, in distress, ill appearing, frail appearing and Edematous O RIENTATION/CONSCIOUSNESS: Yes awake, Yes oriented to person, Yes oriented to place and Yes oriented to time Neuro: COMMON NORMALS: patient oriented x3 SENSORIUM/ORIENTATION: Yes alert, Yes oriented to person, Yes oriented to place and Yes oriented to time Urinary Catheter Management: Low: Cath Placed During This Visit: yes Reason for Continuing Indwelling Catheter: Accurate Measurement of Urinary Output in Critically Ill Patients Urinary Catheter Date of Insertion: 07/15/24 Urinary Catheter Time of Insertion: 14:05 Data 07/19/24 05:16 07/19/24 05:16 A&P Assessment and plan (1) Generalized weakness: (2) Upper GI bleed: (3) Anemia: Qualifiers: Anemia type: iron deficiency (4) Hypotension: Qualifiers: Hypotension type: hypotension due to hypovolemia Qualified Code(s): E 86.1 - Hypovolemia (5) Acute hypoxemic respiratory failure: (6) Hydronephrosis: (7) CKD (chronic kidney disease): (8) COPD (chronic obstructive pulmonary disease): (9) Pulmonary hypertension: (10) Deep vein thrombosis, lower left extremity: Qualifiers: Affected thrombotic vein of extremity: unspecified vein of extremity C hronicity: unspecified Qualified Code(s): I82.402 - Acute embolism and thrombosis of unspecified deep veins of left lower extremity (11) UTI (urinary tract infection): (12) S/P IVC filter: (13) Mild aortic stenosis: Plan 79-year-old lady with past medical history of severe pulmonary hypertension, left lower limb DVT, CKD presented to the ER because of generalized weakness, increased difficulty in breathing than her baseline, orthopnea found to have new anemia with concerns for GI bleed, persistent hypotension, right hydroureteronephrosis with urinary retention. Generalized weakness: Most likely in setting of acute anemia along with hypoxia. Seems more acute on chronic. PT/OT evaluation. Fall precautions. Acute anemia: Hemoglobin of 6 on admission. Iron deficiency anemia. FOBT positive. Post 2 unit of blood transfusion. Hemoglobin stable. Holding off on Eliquis. Underwent EGD and colonoscopy on 07/17. EGD within normal limits. On colonoscopy concerns for extensive small diverticulosis with entire mucosa somewhat ischemic and sloughed off which bled easily on touch. Surgery recommending holding off on anticoagulation for next few weeks. Continue with Protonix 40 mg twice daily. Start on full liquid diet. Target hemoglobin around 8. Will transfuse accordingly. Shock: Hypovolemic in setting of acute anemia versus cardiogenic. Again required Levophed post EGD/colonoscopy. Being weaned down giving me pressure was 65. Holding off on antihypertensive. Acute hypoxia: Resolved. Chronically on 3 L. History of COPD and severe pulmonary hypertension. ABG showing acute hypoxic and hypocapnic respiratory failure Repeat limited echocardiogram shows EF of 60% with grade 1 diastolic dysfunction, severe pulmonary hypertension with RVSP of 81 mmHg, moderate increase in right size, mild to moderate aortic valve stenosis with aortic valve area of 1.6. Fluid restriction to less than 1500 cc. IV Lasix 40 mg daily. Strict input output charting, daily weights. Likelihood of pulmonary embolism high. Patient does have DVT. Unfortunately CTA cannot be done given CKD. Holding off on anticoagulation for now given acute anemia. Given recommendations of holding off on anticoagulation for next few weeks will consult cardiology for IVC filter placement. Nebulization with ipratropium, Xopenex every 6 hour, Pulmicort twice daily. Orthopnea: Mostly chronic. Continue to monitor. Head of the bed elevated 40 degrees. Acute urinary retention with right-sided hydroureteronephrosis: No calculi as per CT abdomen pelvis. Low catheterization. Repeat renal ultrasound shows resolution of right-sided hydroureteronephrosis. UTI: No symptoms. Patient has no leukocytosis. She did have significant urinary retention. Appreciate urinalysis. Blood culture and urine cultures so far negative. Continue with IV ceftriaxone to finish a 5-day course. Last dose on 07/20. CKD: Creatinine at baseline. Medical reconciliation done for nephrotoxic drugs. Appreciate CT abdomen pelvis. Monitor BMP in morning. Hypertension: On Cardizem 120 mg p.o. twice daily at home. Currently on hold because of hypotension. Monitor. Telemetry. Hyperglycemia: Blood sugars elevated. A1c 5.2. For now continue with sliding scale insulin. Monitor for hypoglycemia. Left lower limb DVT: Appreciate bilateral lower limb Dopplers. Concerning for acute DVT. Plan for IVC filter as above given holding off on anticoagulation for next few weeks. Plan for the day: Post IVC placement. Appreciate speech's recommendation. Restart regular diet. Advised patient for small bites. Renal function stable. Patient seems to be back to her baseline respiratory status. Was able to lie down for IVC filter placement without difficulty in breathing. Did feel anxious but it is in setting of her baseline claustrophobia. Switch from IV Lasix to oral Lasix 40 mg oral daily. Patient would most likely need to continue on oral Lasix at current dose given history of severe pulmonary hypertension. Goal blood pressure less than 140/90 mmHg. Blood pressure stable for now. Continue to monitor. Hemoglobin stable at around 8.2. Continue to monitor. Transfuse if trends less than 8. Continue Protonix 40 mg twice daily along with Carafate ACHS. Continue with IV ceftriaxone to finish a 5-day course. Last dose on 07/20. Monitor renal functions daily. PT/OT. Discharge plan: Patient does have significant physical deconditioning. Will benefit from discharge to SNF versus home with home health. Discussed again in detail with patient today. Patient is agreeable for SNF placement. Case management aware. CODE STATUS: Patient states her son Hoang will be the DPOA. Will confirm with Mr. Bolton with if he would like to be the DPOA or not. Patient would like to be full code for now. Full liquid diet SCD for DVT prophylaxis once DVT is ruled out. Protonix will be sufficient for PUD prophylaxis. Attestations 2 Medical Necessity Statement*: Requires further hospitalization for management of anemia in setting of GI bleed, IVC filter placement in setting of lower limb DVT with high concerns for PE, hypoxia in a lady with severe physical deconditioning requiring safe discharge planning. Diagnoses Generalized weakness R53.1 Upper GI bleed K92.2 Anemia D64.9 Anemia type: iron deficiency Hypotension due to hypovolemia E86.1 Hypotension type: hypotension due to hypovolemia Acute hypoxemic respiratory failure J96.01 Hydronephrosis N13.30 CKD (chronic kidney disease) N18.9 COPD (chronic obstructive pulmonary disease) J44.9 Pulmonary hypertension I27.20 Deep vein thrombosis (DVT) of left lower extremity, unspecified chronicity, unspecified vein I82.402 Affected thrombotic vein of extremity: unspecified vein of extremity Chronicity: unspecified UTI (urinary tract infection) N39.0 S/P IVC filter Z95.828 Mild aortic stenosis I35.0
--- NOTE | 2024-07-19 13:59 | P.PN_ITS ---
Subjective 2 Subjective: Abdominal pain much improved. Denies any nausea or vomiting Vitals/I&O/Wt Last Vital Signs Temp 98.4 F 07/20/24 13:51 Pulse 102 H 07/20/24 13:51 Resp 24 H 07/20/24 13:51 BP 100/49 07/20/24 13:51 Pulse Ox 93 07/20/24 13:51 O2 Del Method Nasal Cannula 07/20/24 12:00 O2 Flow Rate 4 07/20/24 12:00 07/19/24 07/20/24 07/20/24 22:59 06:59 14:59 Intake Total 1830 / 2310 240 / 2550 1280 / 1280 Output Total 950 / 950 300 / 1250 Balance 880 / 1360 -60 / 1300 1280 / 1280 Weight last 48 hrs Weight 176 lb 1.6 oz Weight 162 lb 0.636 oz Weight 163 lb 2.273 oz Physical Exam 2 Narrative: General: No acute distress, awake alert and oriented x 3 Abdomen: Soft, nondistended, nontender, reducible umbilical hernia containing transverse colon, no guarding or rebound Urinary Catheter Management: Low: Cath Placed During This Visit: yes Reason for Continuing Indwelling Catheter: Accurate Measurement of Urinary Output in Critically Ill Patients Urinary Catheter Date of Insertion: 07/15/24 Urinary Catheter Time of Insertion: 14:05 Data 07/20/24 03:23 07/20/24 03:23 A&P Assessment and plan (1) Iron deficiency anemia: (2) Chronic anticoagulation: (3) Generalized weakness: (4) Ischemic colitis: Mild, clinical diagnosis based on sloughing of mucosa during colonoscopy. Awaiting biopsy results Plan Continue regular diet Medical management per primary No planned further surgical intervention Will follow Attestations 2 Medical Necessity Statement*: Per primary Coding Level of Care Code 56228 Diagnoses Iron deficiency anemia D50.9 Chronic anticoagulation Z79.01 Generalized weakness R53.1 Ischemic colitis K55.9
--- NOTE | 2024-07-19 14:33 | PC.SLP ---
Therapist attempted to see patient. Patient refused therapy today. Patient stated she was tired and was just given morphine. Therefore, she stated she did not want to do therapy at that time.
[2024-07-19] MEDS: cefTRIAXone 1,000 mg SDV 1000 MG IVP (14:36)
--- NOTE | 2024-07-19 17:03 | PC.NURSE ---
Report was called to SPEEDY Rodriguez in [facility]. Patient was transferred to [facility] successfully without any complication. Patient was stable.
[2024-07-19 17:16] LABS: Glucose Point of Care 122 mg/dL (70-110)
[2024-07-19] MEDS: sucralfate 1 gm/10 mL Oral Liq UDC PO ×2 (17:26→20:32)
--- NOTE | 2024-07-19 17:28 | P.PN_ITS ---
Subjective 2 Subjective: Patient underwent IVC filter placement this morning for inability to take anticoagulation with history of DVT pulmonary embolism and persistent anemia/GI bleed with ischemic bowel Vitals/I&O/Wt Last Vital Signs Temp 98.3 F 07/19/24 17:21 Pulse 100 07/19/24 17:21 Resp 21 H 07/19/24 17:21 BP 103/52 07/19/24 17:21 Pulse Ox 91 07/19/24 17:21 O2 Del Method Nasal Cannula 07/19/24 17:21 O2 Flow Rate 3 07/19/24 16:35 07/19/24 07/19/24 07/19/24 06:59 14:59 22:59 Intake Total 480 / 480 830 / 1310 Output Total 500 / 1250 650 / 650 Balance -500 / 141.625 480 / 480 180 / 660 Weight last 48 hrs Weight 162 lb 0.636 oz Weight 163 lb 2.273 oz Weight 162 lb 8 oz Weight 161 lb 2.273 oz Physical Exam 2 Const: COMMON NORMALS: alert HENMT: OTHER: Alert awake oriented laying in the bed GENERAL: Patient is alert, awake and oriented x3. HEART: Regular S1 and S2. No murmur, rub or gallop. LUNGS: Clear to auscultate bilaterally. CENTRAL NERVOUS SYSTEM: Grossly nonfocal. EXTREMITIES: Lower extremities with out edema bilaterally. Resp: COMMON NORMALS: clear to auscultation bilaterally AUSCULTATION: clear to auscultation bilaterally Neuro: SENSORIUM/ORIENTATION: Yes alert Urinary Catheter Management: Low: Cath Placed During This Visit: yes Reason for Continuing Indwelling Catheter: Accurate Measurement of Urinary Output in Critically Ill Patients Urinary Catheter Date of Insertion: 07/15/24 Urinary Catheter Time of Insertion: 14:05 Data 07/19/24 05:16 07/19/24 05:16 A&P Assessment and plan (1) Chronic anticoagulation: For inability to take anticoagulation as defined above patient when IVC filter sites looks good, will sign off for now we will follow-up with patient in cardiology clinic and possible IVC filter extraction in 3 months (2) GI bleed: As per medicine Qualifiers: GI bleed type/associated pathology: unspecified gastrointestinal hemorrhage type Qualified Code(s): K92.2 - Gastrointestinal hemorrhage, unspecified (3) Deep vein thrombosis, lower left extremity: status post IVC filter placement through right groin Qualifiers: Affected thrombotic vein of extremity: unspecified vein of extremity C hronicity: unspecified Qualified Code(s): I82.402 - Acute embolism and thrombosis of unspecified deep veins of left lower extremity Plan Patient was evaluated and cared for in conjunction with an advanced practice practitioner. I personally examined the patient and reviewed the chart and all pertinent data including imaging, telemetry, and laboratory results. I discussed the patient in detail with the advanced practice practitioner. Please see their note for complete H&P testing result and agreed upon plan of care for the patient. 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 We have been asked to assist in this care. GENERAL: Patient is alert, awake and oriented x3. HEART: Regular S1 and S2. No murmur, rub or gallop. LUNGS: Clear to auscultate bilaterally. CENTRAL NERVOUS SYSTEM: Grossly nonfocal. EXTREMITIES: Lower extremities with out edema bilaterally. Assessment and plan #1 DVT/history of pulmonary embolism #2 Anemia with possible GI loss #3 inability to take anticoagulation We agree with patient high risk profile for recurrent DVT leading to pulmonary embolism since she is bedbound, we therefore proceed with IVC filter placement which would be retrievable. Plan to remove IVC filter in 3 months when she will be tolerating anticoagulation. Patient has been explained all risk-benefit and alternative for the procedure she would like to proceed with it. Plan tomorrow coding advisor around 6 AM. Patient was evaluated and cared for in conjunction with an advanced practice practitioner. I personally examined the patient and reviewed the chart and all pertinent data including imaging, telemetry, and laboratory results. I discussed the patient in detail with the advanced practice practitioner. Please see their note for complete H&P testing result and agreed upon plan of care for the patient. At this time the patient needs to hold Eliquis for at least 2 weeks. Due to previous history of recurrent DVT and PE, it is recommended patient undergo IVC filter placement. Patient was educated on risks and benefits of this by Dr. Batres including but not limited to bleeding infection anesthetic complications pulmonary embolism due to dislodging of the thrombus among others. She verbalized full understanding and agrees to the risks of this. We will plan on doing this tomorrow morning around 6 AM. Thank you for allowing us to take care of this very pleasant 79-year-old female Attestations 2 Medical Necessity Statement*: As per primary medicine Coding Level of Care Code Acute Code for Chg Fwd Diagnoses Chronic anticoagulation Z79.01 Gastrointestinal hemorrhage, unspecified gastrointestinal hemorrhage type K92.2 GI bleed type/associated pathology: unspecified gastrointestinal hemorrhage type Deep vein thrombosis (DVT) of left lower extremity, unspecified chronicity, unspecified vein I82.402 Affected thrombotic vein of extremity: unspecified vein of extremity Chronicity: unspecified
[2024-07-19] MEDS: budesonide 0.5 mg/2 mL Neb INHALATION (19:11)
[2024-07-19 20:44] LABS: Glucose Point of Care 242 mg/dL (70-110)
[2024-07-20] VITALS (49 sets, daily range): BP systolic 89–117; BP diastolic 42–63; PULSE 86–110; RESP 17–36; TEMP 36.8–37.9; O2SAT 84–97
[2024-07-20] MEDS: levalbuterol 0.63 mg/3 mL Neb INHALATION ×4 (01:41→19:45)
[2024-07-20] MEDS: ipratropium 0.5 mg/2.5 mL Neb INHALATION ×4 (01:41→19:45)
[2024-07-20] MEDS: pantoprazole 40 mg SDV IVP ×2 (02:37→15:07)
[2024-07-20 04:12] LABS: Basophils % 0.2 %; Eosinophils # 0.3 10^3/uL (0.0-0.8); Eosinophils % 2.2 %; Hematocrit 25.7 % (36-47); Lymphocytes # 0.6 10^3/uL (0.8-4.8); Lymphocytes % 4.1 %; Mean Corpuscular HGB Conc 29.2 g/dL (30-55); Mean Corpuscular Hemoglobin 26.3 pg (27-33); Mean Corpuscular Volume 90.2 fl (85-98); Mean Platelet Volume 10.2 fL (7.4-10.4); Monocytes # 0.8 10^3/uL (0.2-0.9); Neutrophils # 11.69 10^3/uL (1.8-7.7); Neutrophils % 86.8 %; Nucleated Red Blood Cells % 0 %; Platelet Count 161 10^3/cmm (157-399); Red Blood Count 2.85 10^6/uL (3.85-5.65); Red Cell Distribution Width 17.6 % (12.1-15.1); White Blood Count 13.47 10^3/uL (3.29-11.43)
[2024-07-20 04:33] LABS: Magnesium 2.2 mg/dL (1.7-2.3)
[2024-07-20 04:59] LABS: Alanine Aminotransferase 11 U/L (0-33); Albumin Level 3.2 g/dL (3.5-5.2); Alkaline Phosphatase 88 U/L (35-105); Anion Gap 16.3 (5-19); Aspartate Amino Transferase 12 U/L (0-32); Blood Urea Nitrogen 69 mg/dL (8-23); Calcium 8.2 mg/dL (8.5-10.5); Carbon Dioxide 25 mmol/L (22-29); Chloride 94 mmol/L (98-107); Creatinine Clr Calc Pharmacy 17.8627; Globulin 2.2 g/dL (1.3-4.6); Glucose 115 mg/dL (65-115); Osmolality Calculated 293 mOsm/kg (285-295); Potassium 4.3 mmol/L (3.5-5.1); Sodium 131 mmol/L (136-145); Total Bilirubin 0.3 mg/dL (0.15-1.2); Total Protein 5.4 g/dL (6.6-8.7)
[2024-07-20] MEDS: sucralfate 1 gm/10 mL Oral Liq UDC PO ×4 (06:17→20:20)
[2024-07-20 06:31] LABS: Glucose Point of Care 160 mg/dL (70-110)
[2024-07-20] MEDS: sertraline 50 mg Tablet PO (08:05)
[2024-07-20] MEDS: folic acid 1 mg Tablet PO ×2 (08:05→16:32)
[2024-07-20] MEDS: insulin lispro 100 unit/1 mL SUBCUT ×3 (08:05→17:30)
[2024-07-20] MEDS: FUROsemide 40 mg Tablet PO (08:05)
[2024-07-20] MEDS: budesonide 0.5 mg/2 mL Neb INHALATION ×2 (08:38→19:45)
[2024-07-20] MEDS: iron sucrose 200 MG in sodium chloride 0.9% (100 ml) 100 ML 220 MG IV (09:25)
[2024-07-20 11:25] LABS: Glucose Point of Care 153 mg/dL (70-110)
[2024-07-20] MEDS: FUROsemide 10 mg/mL SDV 4mL 40 MG IVP ×2 (11:53→16:32)
--- NOTE | 2024-07-20 11:59 | PC.NURSE ---
Informed Dr Day of elevated temperature during blood transfusion. Patient denies any other symptoms. MD into see patient. Received verbal order for Tylenol 1000mg IV once. Other medications given as ordered. Also decreased transfusion rate.
--- NOTE | 2024-07-20 12:17 | PC.NURSE ---
Patient reports feeling like she is going to faint. Patient appears very drowsy. Patient was extremely fatigued when Dr Day was at bedside.
--- NOTE | 2024-07-20 12:25 | PC.NURSE ---
Blood on hold for a few minutes per Dr Day.
[2024-07-20] MEDS: sodium chloride 0.9% 100 mL Bag 50 ML IV (12:45)
--- NOTE | 2024-07-20 13:38 | P.PN_ITS ---
Subjective 2 Subjective: No acute events overnight. Today morning seen in [facility]. Patient is slightly more sleepy and tired appearing today. States otherwise she is feeling stable. Breathing seems to have improved slightly with patient. She feels tired today. Denies any nausea, vomiting, headache. Has remained on 3 to 4 L of oxygen supplementation. Hemodynamically stable. Vitals/I&O/Wt Last Vital Signs Temp 98.5 F 07/20/24 12:48 Pulse 100 07/20/24 13:25 Resp 24 H 07/20/24 13:25 BP 100/49 07/20/24 13:25 Pulse Ox 94 07/20/24 13:25 O2 Del Method Nasal Cannula 07/20/24 12:00 O2 Flow Rate 4 07/20/24 12:00 07/19/24 07/20/24 07/20/24 22:59 06:59 14:59 Intake Total 1830 / 2310 240 / 2550 1280 / 1280 Output Total 950 / 950 300 / 1250 Balance 880 / 1360 -60 / 1300 1280 / 1280 Weight last 48 hrs Weight 79.878 kg Weight 73.5 kg Weight 74 kg Physical Exam 2 Narrative: HEENT: PERRLA, pupils bilaterally equal and reactive, more tired appearing today Chest: Bilateral bronchial breath sounds all over lung morris with occasional rhonchi, JVD elevated CVS: S1-S2 regular, soft pansystolic murmur at fourth intercostal space left retrosternal, no tachycardia, no gallops, no rubs Abdomen: Soft, nontender, no organomegaly, bowel sounds present Neuro: No focal deficits, no facial deformity, AO x3, Const: COMMON NORMALS: patient oriented x3 and alert GENERAL APPEARANCE: c ooperative, in distress, ill appearing, frail appearing and Edematous O RIENTATION/CONSCIOUSNESS: Yes awake, Yes oriented to person, Yes oriented to place and Yes oriented to time Neuro: COMMON NORMALS: patient oriented x3 SENSORIUM/ORIENTATION: Yes alert, Yes oriented to person, Yes oriented to place and Yes oriented to time Urinary Catheter Management: Low: Cath Placed During This Visit: yes Reason for Continuing Indwelling Catheter: Accurate Measurement of Urinary Output in Critically Ill Patients Urinary Catheter Date of Insertion: 07/15/24 Urinary Catheter Time of Insertion: 14:05 Data 07/20/24 03:23 07/20/24 03:23 A&P Assessment and plan (1) Generalized weakness: (2) Anemia: Qualifiers: Anemia type: iron deficiency (3) GI bleed: Qualifiers: GI bleed type/associated pathology: unspecified gastrointestinal hemorrhage type Qualified Code(s): K92.2 - Gastrointestinal hemorrhage, unspecified (4) Ischemic colitis: (5) Hypotension: Qualifiers: Hypotension type: hypotension due to hypovolemia Qualified Code(s): E 86.1 - Hypovolemia (6) Acute hypoxemic respiratory failure: (7) Hydronephrosis: (8) Urinary retention: (9) CKD (chronic kidney disease): (10) COPD (chronic obstructive pulmonary disease): (11) Pulmonary hypertension: (12) Deep vein thrombosis, lower left extremity: Qualifiers: Affected thrombotic vein of extremity: unspecified vein of extremity C hronicity: unspecified Qualified Code(s): I82.402 - Acute embolism and thrombosis of unspecified deep veins of left lower extremity (13) S/P IVC filter: (14) Mild aortic stenosis: (15) UTI (urinary tract infection): Plan 79-year-old lady with past medical history of severe pulmonary hypertension, left lower limb DVT, CKD presented to the ER because of generalized weakness, increased difficulty in breathing than her baseline, orthopnea found to have new anemia with concerns for GI bleed, persistent hypotension, right hydroureteronephrosis with urinary retention. Generalized weakness: Most likely in setting of acute anemia along with hypoxia. Seems more acute on chronic. PT/OT evaluation. Fall precautions. Acute anemia: Hemoglobin of 6 on admission. Iron deficiency anemia. FOBT positive. Post 2 unit of blood transfusion. Hemoglobin stable. Holding off on Eliquis. Underwent EGD and colonoscopy on 07/17. EGD within normal limits. On colonoscopy concerns for extensive small diverticulosis with entire mucosa somewhat ischemic and sloughed off which bled easily on touch. Surgery recommending holding off on anticoagulation for next few weeks. Continue with Protonix 40 mg twice daily. Start on full liquid diet. Target hemoglobin around 8. Will transfuse accordingly. Shock: Hypovolemic in setting of acute anemia versus cardiogenic. Again required Levophed post EGD/colonoscopy. Being weaned down giving me pressure was 65. Holding off on antihypertensive. Acute hypoxia: Resolved. Chronically on 3 L. History of COPD and severe pulmonary hypertension. ABG showing acute hypoxic and hypocapnic respiratory failure Repeat limited echocardiogram shows EF of 60% with grade 1 diastolic dysfunction, severe pulmonary hypertension with RVSP of 81 mmHg, moderate increase in right size, mild to moderate aortic valve stenosis with aortic valve area of 1.6. Fluid restriction to less than 1500 cc. IV Lasix 40 mg daily. Strict input output charting, daily weights. Likelihood of pulmonary embolism high. Patient does have DVT. Unfortunately CTA cannot be done given CKD. Holding off on anticoagulation for now given acute anemia. Given recommendations of holding off on anticoagulation for next few weeks will consult cardiology for IVC filter placement. Nebulization with ipratropium, Xopenex every 6 hour, Pulmicort twice daily. Orthopnea: Mostly chronic. Continue to monitor. Head of the bed elevated 40 degrees. Acute urinary retention with right-sided hydroureteronephrosis: No calculi as per CT abdomen pelvis. Low catheterization. Repeat renal ultrasound shows resolution of right-sided hydroureteronephrosis. UTI: No symptoms. Patient has no leukocytosis. She did have significant urinary retention. Appreciate urinalysis. Blood culture and urine cultures so far negative. Continue with IV ceftriaxone to finish a 5-day course. Last dose on 07/20. CKD: Creatinine at baseline. Medical reconciliation done for nephrotoxic drugs. Appreciate CT abdomen pelvis. Monitor BMP in morning. Hypertension: On Cardizem 120 mg p.o. twice daily at home. Currently on hold because of hypotension. Monitor. Telemetry. Hyperglycemia: Blood sugars elevated. A1c 5.2. For now continue with sliding scale insulin. Monitor for hypoglycemia. Left lower limb DVT: Appreciate bilateral lower limb Dopplers. Concerning for acute DVT. Plan for IVC filter as above given holding off on anticoagulation for next few weeks. Plan for the day: Patient denies any new complaints. Today slightly more lethargic. Check cortisol level. Hemodynamically stable otherwise. Did have 1 episode of fever during blood transfusion. Infection less likely but follow-up persistent leukocytosis for the last 3 days since EGD and colonoscopy will do portable chest x-ray and urinalysis. Cultures so far negative. Leukocytosis most likely in setting of anemia. Continue with IV iron supplementation to finish a 5-day course. Last dose on 07/20. Continue with IV ceftriaxone to finish overall 5-day course. Last dose of antibiotics today. Hemoglobin down to 7.5 today. No active bleeding. Transfuse 1 more unit of PRBC today. Target hemoglobin more than 8. Continue with Protonix and Carafate. Patient net positive yesterday after IV fluids post IVC filter placement. Will give IV Lasix 40 mg one-time as patient is also getting PRBC transfusion. Repeat BMP later in the day. Depending on the hemoglobin improvement in next 24 hours we will plan to start on prophylactic heparin 5000 Q12 hourly dose. Discharge plan: Patient does have significant physical deconditioning. Will benefit from discharge to SNF versus home with home health. Discussed again in detail with patient today. Patient is agreeable for SNF placement. Case management aware. CODE STATUS: Patient states her son Hoang will be the DPOA. Will confirm with Mr. Bolton with if he would like to be the DPOA or not. Patient would like to be full code for now. Full liquid diet SCD for DVT prophylaxis once DVT is ruled out. Protonix will be sufficient for PUD prophylaxis. Guarded prognosis. Attestations 2 Medical Necessity Statement*: Requires further hospitalization for management of anemia in setting of GI bleed from ischemic colitis requiring further blood transfusion, hypotension in setting of hypovolemia, lower limb DVT, history of PE requiring IVC filter placement while safe discharge planning is sought Diagnoses Generalized weakness R53.1 Anemia D64.9 Anemia type: iron deficiency Gastrointestinal hemorrhage, unspecified gastrointestinal hemorrhage type K92.2 GI bleed type/associated pathology: unspecified gastrointestinal hemorrhage type Ischemic colitis K55.9 Hypotension due to hypovolemia E86.1 Hypotension type: hypotension due to hypovolemia Acute hypoxemic respiratory failure J96.01 Hydronephrosis N13.30 Urinary retention R33.9 CKD (chronic kidney disease) N18.9 COPD (chronic obstructive pulmonary disease) J44.9 Pulmonary hypertension I27.20 Deep vein thrombosis (DVT) of left lower extremity, unspecified chronicity, unspecified vein I82.402 Affected thrombotic vein of extremity: unspecified vein of extremity Chronicity: unspecified S/P IVC filter Z95.828 Mild aortic stenosis I35.0 UTI (urinary tract infection) N39.0
--- NOTE | 2024-07-20 13:39 | XRR_ITS ---
PROCEDURE INFORMATION: Exam: XR Chest Exam date and time: 07/20/2024 1:56 PM Age: 79 years old Clinical indication: Shortness of breath; Additional info: SOB TECHNIQUE: Imaging protocol: Radiologic exam of the chest. Views: 1 view. COMPARISON: CR XR chest 1V portable [id number] 07/17/2024 10:55 AM FINDINGS: Lungs: Unremarkable. No consolidation. Pleural spaces: Unremarkable. No pleural effusion. No pneumothorax. Heart/Mediastinum: Unremarkable. No cardiomegaly. Bones/joints: A metal plate is again seen anchored to the right humeral diaphysis. No acute findings. XR/XR chest 1V portable [id number] IMPRESSION: No acute findings.
--- NOTE | 2024-07-20 14:00 | P.PN_ITS ---
Subjective 2 Subjective: Patient seen and examined. Denies any abdominal pain. Denies any blood per rectum. Tolerating diet. Appears to be having some respiratory distress Vitals/I&O/Wt Last Vital Signs Temp 98.4 F 07/20/24 13:51 Pulse 102 H 07/20/24 13:51 Resp 24 H 07/20/24 13:51 BP 100/49 07/20/24 13:51 Pulse Ox 93 07/20/24 13:51 O2 Del Method Nasal Cannula 07/20/24 12:00 O2 Flow Rate 4 07/20/24 12:00 07/19/24 07/20/24 07/20/24 22:59 06:59 14:59 Intake Total 1830 / 2310 240 / 2550 1280 / 1280 Output Total 950 / 950 300 / 1250 Balance 880 / 1360 -60 / 1300 1280 / 1280 Weight last 48 hrs Weight 176 lb 1.6 oz Weight 162 lb 0.636 oz Weight 163 lb 2.273 oz Physical Exam 2 Narrative: General: No acute distress, awake alert and oriented x 3 Abdomen: Soft, nondistended, nontender, reducible umbilical hernia containing transverse colon, no guarding or rebound Urinary Catheter Management: Low: Cath Placed During This Visit: yes Reason for Continuing Indwelling Catheter: Accurate Measurement of Urinary Output in Critically Ill Patients Urinary Catheter Date of Insertion: 07/15/24 Urinary Catheter Time of Insertion: 14:05 Data 07/20/24 03:23 07/20/24 03:23 A&P Assessment and plan (1) Iron deficiency anemia: (2) Chronic anticoagulation: (3) Generalized weakness: (4) Ischemic colitis: Mild, clinical diagnosis based on sloughing of mucosa during colonoscopy. Awaiting biopsy results Plan She does not have any signs of GI bleeding, but she recently had transfusion of PRBCs which resulted in a temperature of 100.31 time. White blood cell count, respiratory rate and heart rate are somewhat elevated. I spoke with Dr. Negrete and a chest x-ray and UA are ordered. I am not concerned about her abdomen at this time Continue regular diet Medical management per primary No planned further surgical intervention Will follow Attestations 2 Medical Necessity Statement*: Per primary Coding Level of Care Code 13786 Diagnoses Iron deficiency anemia D50.9 Chronic anticoagulation Z79.01 Generalized weakness R53.1 Ischemic colitis K55.9
[2024-07-20 14:05] LABS: Bilirubin Urine Negative (Negative); Blood Urine 2+ (Negative); Glucose Urine UA Negative (Normal); Ketones Urine Negative (Negative); Leukocyte Esterase Urine 3+ (Negative); Nitrate Urine Negative (Negative); Protein Urine 1+ (Negative); Specific Gravity, Urine 1.012 (1.005-1.030); Urine Appearance Turbid (CLEAR); Urine Color Yellow (Yellow); Urobilinogen Urine 0.2 mg/dL (Negative); pH Urine 5.5 (5-7)
[2024-07-20 14:10] LABS: Bacteria Urine 4+ /hpf; Hyaline Casts Urine 62.55 /lpf; RBC Urine >100 /hpf (0-2); Squamous Epithelial Cell Urine 51-100 /hpf (0-5); WBC Urine >100 /hpf (0-5)
[2024-07-20 14:20] LABS: Add Urine Culture? Yes; Add Urine Microscopic? YES; UA Slide Review UA Slide Review Perf
[2024-07-20 14:27] LABS: Cortisol Random 16.18 ug/dL (2.47-19.5)
[2024-07-20] MEDS: meropenem 1,000 mg SDV 1000 MG IVP (15:07)
[2024-07-20 15:30] LABS: Anion Gap 15.5 (5-19); Blood Urea Nitrogen 72 mg/dL (8-23); Calcium 8.3 mg/dL (8.5-10.5); Carbon Dioxide 24 mmol/L (22-29); Chloride 93 mmol/L (98-107); Creatinine Clr Calc Pharmacy 15.3989; Glucose 163 mg/dL (65-115); Osmolality Calculated 291 mOsm/kg (285-295); Potassium 4.5 mmol/L (3.5-5.1); Sodium 128 mmol/L (136-145)
--- NOTE | 2024-07-20 15:45 | PC.NURSE ---
Informed Dr Day of decreased urine about after lasix administration. Received telephone order to bladder scan now. Patient has em catheter in place.
--- NOTE | 2024-07-20 16:28 | PC.NURSE ---
Performed Bladder scan per Dr Day. Only observed 0-1ml on scan. Informed Dr Day and received order for Lasix 40mg IVP once. RBVO
--- NOTE | 2024-07-20 16:55 | PM.CCNAC ---
Critical Care Event Note Patient continued to have low urine output during the day. Received oral 40 mg and IV 40 mg Lasix. Urine output of around 500 cc during the day. Patient and slightly more lethargic today though on repeat examination patient is more awake and alert. Mean atrial pressure on review has been between 60 to 70 mmHg. She did get a monitor PRBC. Repeat BMP shows worsening renal functions with creatinine going up to 2.9, sodium level dropping down to 128, BUN of 72. Bladder scan shows no urine in bladder. Plan: Transfer to ICU. Start on low-dose Levophed to Maintain mean blood pressure over 65. Start on salt tablets. Repeat IV Lasix 40 mg one-time. Repeat BMP in AM. The high probability of a clinically significant, sudden or life threatening deterioration of the patient's [cardiac, renal] system(s) required my full and direct attention, intervention and personal management. The critical care time is as shown. This time is in addition to time spent performing any reported procedures but includes the following: [x] Data and vital sign review and interpretation [x] Patient assessment, examination and intervention [x] Documentation [x] Medication orders and management Critical Care Time Code activated: No Critical Care Time (min): 60 Coding Level of Care Code Acute Code for [facility]
[2024-07-20 17:25] LABS: Glucose Point of Care 176 mg/dL (70-110)
[2024-07-20] MEDS: sodium chloride 1 gm Tablet PO (17:30)
[2024-07-20] MEDS: ondansetron 2 mg/ML SDV 2 mL 4 MG IVP (17:49)
[2024-07-20] MEDS: acetaminophen 325 mg Tablet 650 MG PO (19:06)
--- NOTE | 2024-07-20 19:15 | PC.NURSE ---
Pain Patient complaining of severe generalized pain at a 10 on a 1-10 numerical pain scale. Tylenol vs morphine and their possible side effects discussed; patient agreeable to try tylenol as first line pain medication.
[2024-07-20 20:29] LABS: Glucose Point of Care 113 mg/dL (70-110)
[2024-07-21] VITALS (98 sets, daily range): BP systolic 82–122; BP diastolic 44–77; PULSE 75–96; RESP 13–31; TEMP 36.6–36.7; O2SAT 86–98
[2024-07-21] MEDS: meropenem 1,000 mg SDV 1000 MG IVP ×2 (02:38→14:00)
[2024-07-21] MEDS: pantoprazole 40 mg SDV IVP ×2 (02:39→14:01)
[2024-07-21] MEDS: norepinephrine 4 MG/250 ML BAG 7.5 MG IV (03:43)
--- NOTE | 2024-07-21 04:00 | PC.NURSE ---
Nystatin Macerated area on patient's buttocks noted to be moist with purulent, odorous exudate. Dr. Avila notified; order received for topical nystatin powder.
[2024-07-21 04:04] LABS: Basophils % 0.3 %; Eosinophils # 0.3 10^3/uL (0.0-0.8); Eosinophils % 2.7 %; Hematocrit 26.1 % (36-47); Lymphocytes # 1.1 10^3/uL (0.8-4.8); Lymphocytes % 8.9 %; Mean Corpuscular HGB Conc 29.9 g/dL (30-55); Mean Corpuscular Hemoglobin 27.5 pg (27-33); Mean Corpuscular Volume 91.9 fl (85-98); Mean Platelet Volume 9.7 fL (7.4-10.4); Monocytes # 0.8 10^3/uL (0.2-0.9); Monocytes % 6.2 %; Neutrophils # 9.86 10^3/uL (1.8-7.7); Neutrophils % 81.1 %; Nucleated Red Blood Cells % 0 %; Platelet Count 140 10^3/cmm (157-399); Red Blood Count 2.84 10^6/uL (3.85-5.65); Red Cell Distribution Width 17.7 % (12.1-15.1); White Blood Count 12.17 10^3/uL (3.29-11.43)
[2024-07-21 04:18] LABS: Alanine Aminotransferase 9 U/L (0-33); Albumin Level 2.9 g/dL (3.5-5.2); Alkaline Phosphatase 88 U/L (35-105); Anion Gap 14.7 (5-19); Aspartate Amino Transferase 11 U/L (0-32); Blood Urea Nitrogen 79 mg/dL (8-23); Calcium 8.2 mg/dL (8.5-10.5); Carbon Dioxide 26 mmol/L (22-29); Chloride 94 mmol/L (98-107); Creatinine Clr Calc Pharmacy 12.7591; Globulin 1.9 g/dL (1.3-4.6); Glucose 110 mg/dL (65-115); Osmolality Calculated 294 mOsm/kg (285-295); Potassium 4.7 mmol/L (3.5-5.1); Sodium 130 mmol/L (136-145); Total Bilirubin 0.4 mg/dL (0.15-1.2); Total Protein 4.8 g/dL (6.6-8.7)
[2024-07-21 04:30] LABS: Magnesium 2.2 mg/dL (1.7-2.3)
[2024-07-21] MEDS: sucralfate 1 gm/10 mL Oral Liq UDC PO ×4 (06:01→20:54)
[2024-07-21 07:43] LABS: Glucose Point of Care 132 mg/dL (70-110)
[2024-07-21] MEDS: sertraline 50 mg Tablet PO (08:09)
[2024-07-21] MEDS: FUROsemide 40 mg Tablet PO (08:09)
[2024-07-21] MEDS: sodium chloride 1 gm Tablet PO ×2 (08:10→17:14)
[2024-07-21] MEDS: folic acid 1 mg Tablet PO ×2 (08:10→17:14)
[2024-07-21] MEDS: levalbuterol 0.63 mg/3 mL Neb INHALATION ×2 (08:57→19:44)
[2024-07-21] MEDS: budesonide 0.5 mg/2 mL Neb INHALATION ×2 (08:57→19:44)
[2024-07-21] MEDS: ipratropium 0.5 mg/2.5 mL Neb INHALATION ×2 (08:57→19:44)
[2024-07-21] MEDS: nystatin powder 15 gm Btl 1 APPLIC TOPICAL ×2 (09:09→17:15)
--- NOTE | 2024-07-21 11:11 | PM.CONSULT ---
Providers/Reason For Consult Consulting Physician/Specialty*: [facility]/Nephrology Reason for Consult*: Acute on CKD Attending Physician: Rudy Day MD Primary Care Provider: Jeff Banegas DO History of Present Illness History of Present Illness Susan Resendiz is a 79 year old female 79-year-old female with past medical history of hypertension, COPD on 3 L O2 at baseline, history of left lower extremity DVT, pulmonary hypertension presented to the emergency department on 07/15/2024 due to generalized weakness shortness of breath and worsening lower extremity edema. In the ER patient was hypotensive in the systolic 80s. Patient has known history of CKD with a baseline creatinine of 2.5-3 range And creatinine on presentation was 2.6, progressively worsened to 3.5 today. Patient received IV diuresis. CT scan on presentation has showed high-grade right hydronephrosis which has since resolved on repeat ultrasound and also has atrophic right kidney.\ She is currently on 2 L O2 by nasal cannula, denies any complaints. Creatinine has worsened from 2.9-3.5 today. Review of Systems Narrative: Other review of systems negative Medications/Allergies Home Medications Medication Instructions Recorded Confirmed Last Taken Type sertraline 50 mg tablet 50 mg PO DAILY 03/16/24 07/15/24 Unknown History albuterol sulfate 90 mcg/actuation 2 inh inhalation Q8H PRN shortness 03/22/24 07/15/24 Unknown Rx aerosol inhaler of breath or wheezing #6.7 grams apixaban 5 mg tablet (Eliquis) 2.5 mg (1/2 x 5 mg) PO 03/22/24 07/15/24 Unknown Rx BID@0900,2100 #120 tabs diltiazem HCl 120 mg 120 mg PO BID #60 caps 03/22/24 07/15/24 Unknown Rx capsule,extended release 24 hr (Cardizem CD) potassium chloride 10 mEq 10 meq PO .with bumex every otherd 03/22/24 07/15/24 Unknown Rx tablet,extended release day w bumex #30 tabs tiotropium bromide 18 mcg capsule 1 cap inhalation DAILY #60 03/22/24 07/15/24 Unknown Rx with inhalation device (Spiriva inhalations with HandiHaler) bumetanide 0.5 mg tablet 0.5 mg PO DAILY 07/15/24 07/15/24 Unknown History fluticasone propionate 45 2 inh inhalation BID 07/15/24 07/15/24 Unknown History mcg-salmeterol 21 mcg/actuation HFA inhaler (Advair HFA) mometasone-formoterol HFA 100 2 puff inhalation BID 07/15/24 07/15/24 Unknown History mcg-5 mcg/actuation aerosol inhaler (Dulera) Allergies Allergy/AdvReac Type Severity Reaction Status Date / Time penicillin G Allergy Severe ALGY-Swell Verified 01/27/21 08:51 Lip/Tongue/Throat Penicillins Allergy Unknown Verified 01/27/21 08:51 Current Medications Generic Name Dose Route Start Last Admin Trade Name Freq PRN Reason Stop Dose Admin Acetaminophen 650 mg 07/15/24 14:45 07/20/24 19:06 Acetaminophen 325 Mg Tablet PO 650 mg Q6H PRN Administration Mild/Mod Pain Or Temp >/= 101 Bisacodyl 10 mg 07/15/24 14:45 07/16/24 09:35 Bisacodyl 5 Mg Tablet PO 10 mg DAILY PRN Administration Constipation (see protocol) Protocol Budesonide 0.5 mg 07/15/24 20:00 07/21/24 08:57 Budesonide 0.5 Mg/2 Ml Neb INHALATION 0.5 mg BID.RESPIRATORY MAHNAZ Administration Folic Acid 1 mg 07/16/24 18:00 07/21/24 08:10 Folic Acid 1 Mg Tablet PO 1 mg BID MAHNAZ Administration Furosemide 40 mg 07/19/24 09:05 07/21/24 08:09 Furosemide 40 Mg Tablet PO 40 mg DAILY@0800 MAHNAZ Administration Norepinephrine Bitartrate 4 mg in 250 mls @ 0 mls/hr 07/15/24 16:15 07/21/24 09:21 Levophed IV 1 mcg/min .Q0M MAHNAZ 3.75 mls/hr Titration Protocol Per Protocol Insulin Human Lispro 0 unit 07/16/24 08:00 07/21/24 08:06 Insulin Lispro 100 Unit/1 Ml SUBCUT Not Given WM&BEDTIME MAHNAZ Protocol Ipratropium [place] 0.5 mg 07/15/24 20:00 07/21/24 08:57 Ipratropium 0.5 Mg/2.5 Ml Neb INHALATION 0.5 mg Q6H.RESP MAHNAZ Administration Lanolin 1 applic 07/16/24 10:04 07/16/24 10:17 Lanolin Oint 7 Gm TOPICAL 1 applic PRN PRN Administration DRYNESS Levalbuterol HCl 0.63 mg 07/15/24 20:00 07/21/24 08:57 Levalbuterol 0.63 Mg/3 Ml Neb INHALATION 0.63 mg Q6H.RESP MAHNAZ Administration Meropenem 1,000 mg 07/20/24 15:00 07/21/24 02:38 Meropenem 1,000 Mg Sdv IVP 1,000 mg Q12H MAHNAZ Administration Protocol Morphine Sulfate 2 mg 07/15/24 14:45 07/19/24 12:54 Morphine 4 Mg/Ml Sdv 1 Ml IVP 2 mg Q4H PRN Administration SEVERE PAIN Nystatin 1 applic 07/21/24 09:00 07/21/24 09:09 Nystatin Powder 15 Gm Btl TOPICAL 1 applic BID MAHNAZ Administration Ondansetron HCl 4 mg 07/15/24 14:45 07/20/24 17:49 Ondansetron 2 Mg/Ml Sdv 2 Ml IVP 4 mg Q8H PRN Administration vomiting, or N/V if npo Pantoprazole Sodium 40 mg 07/15/24 14:45 07/21/24 02:39 Pantoprazole 40 Mg Sdv IVP 40 mg Q12H MAHNAZ Administration Sertraline HCl 50 mg 07/16/24 09:00 07/21/24 08:09 Sertraline 50 Mg Tablet PO 50 mg DAILY MAHNAZ Administration Sodium Chloride 1 gm 07/20/24 18:00 07/21/24 08:10 Sodium Chloride 1 Gm Tablet PO 1 gm BID MAHNAZ Administration Sucralfate 1 gm 07/19/24 17:00 07/21/24 06:01 Sucralfate 1 Gm/10 Ml Oral Liq Udc PO 1 gm AC&BEDTIME MAHNAZ Administration PFSH Acute PFSH: Medical History (Updated 07/21/24 @ 11:24 by Chelly Palumbo MD) Mild aortic stenosis Urinary tract infection Deep vein thrombosis, lower left extremity 03/17- Nonocclusive thrombus distal left superficial femoral vein and popliteal vein. CKD (chronic kidney disease) Acute hypoxemic respiratory failure COPD (chronic obstructive pulmonary disease) Acute on chronic renal insufficiency Congestive heart failure Acute exacerbation of chronic obstructive airways disease Leukoplakia of bladder Diabetes mellitus History of recurrent UTI (urinary tract infection) Surgical History (Updated 07/19/24 @ 13:31 by Rudy Day MD) S/P IVC filter 07/19/2024 History of tonsillectomy and adenoidectomy H/O tubal ligation Family History Mother , AT AGE 91 Stroke Father , AT 99 No problems noted. Social History Smoking and tobacco/nicotine status: never used tobacco/nicotine Alcohol intake: never Marital status: / Current occupational status: retired Vitals/I&O/Wt Last Vital Signs Temp 97.8 F 07/21/24 09:15 Pulse 85 07/21/24 10:45 Resp 16 07/21/24 10:45 BP 109/55 07/21/24 10:45 Pulse Ox 96 07/21/24 10:45 O2 Del Method Nasal Cannula 07/21/24 10:45 O2 Flow Rate 3 07/21/24 10:45 07/20/24 07/21/24 07/21/24 22:59 06:59 14:59 Intake Total 50 / 1330 480 / 1810 42.25 / 42.25 Output Total 270 / 270 400 / 670 150 / 150 Balance -220 / 1060 80 / 1140 -107.75 / -107.75 Weight last 48 hrs Weight 74.5 kg Weight 79.878 kg Physical Exam Narrative: Patient is awake alert no distress HEENT S1-S2 regular rate and rhythm Lungs clear No edema Urinary Catheter Management: Low: Cath Placed During This Visit: yes Reason for Continuing Indwelling Catheter: Accurate Measurement of Urinary Output in Critically Ill Patients Urinary Catheter Date of Insertion: 07/15/24 Urinary Catheter Time of Insertion: 14:05 Data 07/21/24 03:38 07/21/24 03:38 Micro: Microbiology 07/20/24 13:55 Urine Culture - Preliminary Urine,Clean Catch Strep species, gamma-hemolytic 07/15/24 15:46 Blood Culture - Final Blood NO GROWTH AFTER 5 DAYS 07/15/24 15:41 Blood Culture - Final Blood NO GROWTH AFTER 5 DAYS A&P Assessment and plan (1) ZACK (acute kidney injury): 1. Acute on chronic kidney disease stage IV: Baseline creatinine is 2-3 range . Patient used to follow-up with nephrology but has lost to follow-up in the last 1 to 2 years. I suspect patient has progression of CKD . Noted thatPatient has fluctuating blood pressures with borderline low blood pressures currently. Requiring pressors intermittently more more more Continue to monitor renal function for now, noted patient on low-dose pressors. Holding diuretics Watch renal function for another 24 to 48 hours and if if Renal function worsens , patient will need dialysis and patient agreeable if dialysis indicated 2. Anemia: Low hemoglobin of 6.8 status post transfusions, , will order OMKAR, noted patient had EGD and colonoscopy 3. Diastolic CHF, status post diuretics on hold for now, will likely need dialysis for volume management 4. Acute on chronic respiratory failure currently on 3 L O2 Patient evaluated using audiovisual cart. Time spent 40 minutes. (2) CKD (chronic kidney disease): Consult Attestations Medical Necessity Statement: per mediicne team Coding Level of Care Code Acute Code for [facility] Fwd Diagnoses ZACK (acute kidney injury) N17.9 CKD (chronic kidney disease) N18.9
[2024-07-21 11:28] LABS: Glucose Point of Care 170 mg/dL (70-110)
--- NOTE | 2024-07-21 11:58 | P.PN_ITS ---
Subjective 2 Subjective: Patient seen and examined. Reports some suprapubic abdominal pain but she is tolerating diet. Negative BM. Nephrology was consulted for consideration of possible hemodialysis Vitals/I&O/Wt Last Vital Signs Temp 97.8 F 07/21/24 09:15 Pulse 85 07/21/24 10:45 Resp 16 07/21/24 10:45 BP 109/55 07/21/24 10:45 Pulse Ox 96 07/21/24 10:45 O2 Del Method Nasal Cannula 07/21/24 10:45 O2 Flow Rate 3 07/21/24 10:45 07/20/24 07/21/24 07/21/24 22:59 06:59 14:59 Intake Total 50 / 1330 480 / 1810 50.062 / 50.062 Output Total 270 / 270 400 / 670 150 / 150 Balance -220 / 1060 80 / 1140 -99.938 / -99.938 Weight last 48 hrs Weight 164 lb 3.91 oz Weight 176 lb 1.6 oz Physical Exam 2 Narrative: General: No acute distress, awake alert and oriented x 3 Abdomen: Soft, nondistended, mild suprapubic tenderness, reducible umbilical hernia containing transverse colon, no guarding or rebound Urinary Catheter Management: Low: Cath Placed During This Visit: yes Reason for Continuing Indwelling Catheter: Accurate Measurement of Urinary Output in Critically Ill Patients Urinary Catheter Date of Insertion: 07/15/24 Urinary Catheter Time of Insertion: 14:05 Data 07/21/24 03:38 07/21/24 03:38 Micro: Microbiology 07/20/24 13:55 Urine Culture - Preliminary Urine,Clean Catch Strep species, gamma-hemolytic 07/15/24 15:46 Blood Culture - Final Blood NO GROWTH AFTER 5 DAYS 07/15/24 15:41 Blood Culture - Final Blood NO GROWTH AFTER 5 DAYS A&P Assessment and plan (1) Iron deficiency anemia: (2) Chronic anticoagulation: (3) Generalized weakness: (4) Ischemic colitis: Mild, clinical diagnosis based on sloughing of mucosa during colonoscopy. Awaiting biopsy results (5) Constipation: Plan She does not have any signs of GI bleeding I am not concerned about her abdomen at this time. But I do recommend that she get her hernia repaired as an outpatient Continue regular diet Add MiraLAX Medical management per primary I am available for hemodialysis catheter placement if requested by nephrology Will follow Attestations 2 Medical Necessity Statement*: Per primary Coding Level of Care Code 74360 Diagnoses Iron deficiency anemia D50.9 Chronic anticoagulation Z79.01 Generalized weakness R53.1 Ischemic colitis K55.9 Constipation K59.00
[2024-07-21] MEDS: insulin lispro 100 unit/1 mL SUBCUT ×2 (12:07→17:14)
[2024-07-21] MEDS: polyethylene glycol 3350 Pkt 17 gm PO (12:45)
--- NOTE | 2024-07-21 13:41 | PC.NURSE ---
Patient's em was removed per Dr. Day and new em was attempted to be inserted. Patient was hurting because of excoriation in the peritoneal area and also because their legs were hurting when this nurse tried to reposition for optimal insertion view. Patient started crying and this nurse stopped and asked if they would like to try again later. Patient stated that they did.
[2024-07-21] MEDS: acetaminophen 325 mg Tablet 650 MG PO (14:01)
--- NOTE | 2024-07-21 14:44 | P.PN_ITS ---
Subjective 2 Subjective: No acute events overnight. Seen in ICU today. Overnight has remained on low- dose Levophed of 1-2. Patient is more awake and alert than yesterday. Denies any nausea, vomiting. Tolerating oral diet. Vitals/I&O/Wt Last Vital Signs Temp 97.8 F 07/21/24 14:00 Pulse 83 07/21/24 14:00 Resp 21 H 07/21/24 14:00 BP 110/56 07/21/24 14:00 Pulse Ox 94 07/21/24 14:00 O2 Del Method Nasal Cannula 07/21/24 14:00 O2 Flow Rate 3 07/21/24 14:00 07/20/24 07/21/24 07/21/24 22:59 06:59 14:59 Intake Total 50 / 1330 480 / 1810 290.062 / 290.062 Output Total 270 / 270 400 / 670 350 / 350 Balance -220 / 1060 80 / 1140 -59.938 / -59.938 Weight last 48 hrs Weight 74.5 kg Weight 79.878 kg Physical Exam 2 Narrative: HEENT: PERRLA, pupils bilaterally equal and reactive, more tired appearing today Chest: Bilateral bronchial breath sounds all over lung morris with occasional rhonchi, JVD elevated CVS: S1-S2 regular, soft pansystolic murmur at fourth intercostal space left retrosternal, no tachycardia, no gallops, no rubs Abdomen: Soft, nontender, no organomegaly, bowel sounds present Neuro: No focal deficits, no facial deformity, AO x3, Const: COMMON NORMALS: patient oriented x3 and alert GENERAL APPEARANCE: c ooperative, in distress, ill appearing, frail appearing and Edematous O RIENTATION/CONSCIOUSNESS: Yes awake, Yes oriented to person, Yes oriented to place and Yes oriented to time Neuro: COMMON NORMALS: patient oriented x3 SENSORIUM/ORIENTATION: Yes alert, Yes oriented to person, Yes oriented to place and Yes oriented to time Urinary Catheter Management: Low: Cath Placed During This Visit: yes Reason for Continuing Indwelling Catheter: Accurate Measurement of Urinary Output in Critically Ill Patients Urinary Catheter Date of Insertion: 07/15/24 Urinary Catheter Time of Insertion: 14:05 Data 07/21/24 03:38 07/21/24 03:38 Micro: Microbiology 07/20/24 13:55 Urine Culture - Preliminary Urine,Clean Catch Strep species, gamma-hemolytic 07/15/24 15:46 Blood Culture - Final Blood NO GROWTH AFTER 5 DAYS 07/15/24 15:41 Blood Culture - Final Blood NO GROWTH AFTER 5 DAYS A&P Assessment and plan (1) Cardiogenic shock: (2) Acute hypoxemic respiratory failure: (3) ZACK (acute kidney injury): (4) Anemia: Qualifiers: Anemia type: iron deficiency (5) GI bleed: Qualifiers: GI bleed type/associated pathology: unspecified gastrointestinal hemorrhage type Qualified Code(s): K92.2 - Gastrointestinal hemorrhage, unspecified (6) Ischemic colitis: (7) Hypotension: Qualifiers: Hypotension type: hypotension due to hypovolemia Qualified Code(s): E 86.1 - Hypovolemia (8) Hydronephrosis: (9) Urinary retention: (10) CKD (chronic kidney disease): (11) COPD (chronic obstructive pulmonary disease): (12) Pulmonary hypertension: (13) Deep vein thrombosis, lower left extremity: Qualifiers: Affected thrombotic vein of extremity: unspecified vein of extremity C hronicity: unspecified Qualified Code(s): I82.402 - Acute embolism and thrombosis of unspecified deep veins of left lower extremity (14) S/P IVC filter: (15) Mild aortic stenosis: (16) UTI (urinary tract infection): (17) Generalized weakness: (18) Goals of care, counseling/discussion: Plan 79-year-old lady with past medical history of severe pulmonary hypertension, left lower limb DVT, CKD presented to the ER because of generalized weakness, increased difficulty in breathing than her baseline, orthopnea found to have new anemia with concerns for GI bleed, persistent hypotension, right hydroureteronephrosis with urinary retention. Generalized weakness: Most likely in setting of acute anemia along with hypoxia. Seems more acute on chronic. PT/OT evaluation. Fall precautions. Acute anemia: Hemoglobin of 6 on admission. Iron deficiency anemia. FOBT positive. Post 2 unit of blood transfusion. Hemoglobin stable. Holding off on Eliquis. Underwent EGD and colonoscopy on 07/17. EGD within normal limits. On colonoscopy concerns for extensive small diverticulosis with entire mucosa somewhat ischemic and sloughed off which bled easily on touch. Surgery recommending holding off on anticoagulation for next few weeks. Continue with Protonix 40 mg twice daily. Start on full liquid diet. Target hemoglobin around 8. Will transfuse accordingly. Shock: Hypovolemic in setting of acute anemia versus cardiogenic. Again required Levophed post EGD/colonoscopy. Being weaned down giving me pressure was 65. Holding off on antihypertensive. Acute hypoxia: Resolved. Chronically on 3 L. History of COPD and severe pulmonary hypertension. ABG showing acute hypoxic and hypocapnic respiratory failure Repeat limited echocardiogram shows EF of 60% with grade 1 diastolic dysfunction, severe pulmonary hypertension with RVSP of 81 mmHg, moderate increase in right size, mild to moderate aortic valve stenosis with aortic valve area of 1.6. Fluid restriction to less than 1500 cc. IV Lasix 40 mg daily. Strict input output charting, daily weights. Likelihood of pulmonary embolism high. Patient does have DVT. Unfortunately CTA cannot be done given CKD. Holding off on anticoagulation for now given acute anemia. Given recommendations of holding off on anticoagulation for next few weeks will consult cardiology for IVC filter placement. Nebulization with ipratropium, Xopenex every 6 hour, Pulmicort twice daily. Orthopnea: Mostly chronic. Continue to monitor. Head of the bed elevated 40 degrees. Acute urinary retention with right-sided hydroureteronephrosis: No calculi as per CT abdomen pelvis. Low catheterization. Repeat renal ultrasound shows resolution of right-sided hydroureteronephrosis. UTI: No symptoms. Patient has no leukocytosis. She did have significant urinary retention. Appreciate urinalysis. Blood culture and urine cultures so far negative. Continue with IV ceftriaxone to finish a 5-day course. Last dose on 07/20. CKD: Creatinine at baseline. Medical reconciliation done for nephrotoxic drugs. Appreciate CT abdomen pelvis. Monitor BMP in morning. Hypertension: On Cardizem 120 mg p.o. twice daily at home. Currently on hold because of hypotension. Monitor. Telemetry. Hyperglycemia: Blood sugars elevated. A1c 5.2. For now continue with sliding scale insulin. Monitor for hypoglycemia. Left lower limb DVT: Appreciate bilateral lower limb Dopplers. Concerning for acute DVT. Plan for IVC filter as above given holding off on anticoagulation for next few weeks. Plan for the day: More awake and alert today. Appreciate cortisol levels. Hemoglobin has remained stable. Post 2 unit of blood transfusions overall. No episodes of melena. Maintain mean artery pressure 65-70. Continue low-dose Levophed if needed. Monitor urine output. Creatinine worsening today. Appreciate nephrology recommendations. Plan for holding off on dialysis for now and conservative treatment while holding off on Lasix and monitoring her respiratory and renal status. Repeat BMP in afternoon. Urinalysis showing gamma hemolytic strep. Continue with meropenem. Patient had already finished 4-day course of ceftriaxone on 07/20. Meropenem started on 07/20. Will exchange Low catheter today. Goals of care discussion: Again had a detailed goals of care discussion with patient at bedside. We discussed unfortunately she is extremely sick with concerns for cardiogenic shock in setting of severe pulmonary hypertension, CKD with worsening of renal functions. We discussed there is a chance that she might need dialysis. Patient is agreeable for dialysis. She would want her son Hoang to make decisions when she is not able to make for herself. For now she would want to remain full code but does not want chest compression to be tried more than 1 time. She is agreeable to short-term of mechanical ventilation if needed. Care discussed in detail with patient's son Mr. Bolton over the phone. He is agreeable to make DPOA decisions. He would want to respect patient's wishes. Discharge plan: Patient does have significant physical deconditioning. Will benefit from discharge to SNF versus home with home health. Discussed again in detail with patient today. Patient is agreeable for SNF placement. Case management aware. CODE STATUS: Patient states her son Hoang will be the DPOA. Will confirm with Mr. Bolton with if he would like to be the DPOA or not. Patient would like to be full code for now. Full liquid diet SCD for DVT prophylaxis once DVT is ruled out. Protonix will be sufficient for PUD prophylaxis. Guarded prognosis. Attestations 2 Medical Necessity Statement*: Requires further hospitalization for management of cardiogenic shock, ZACK and CKD in a patient with severe pulmonary hypertension, hypoxic respiratory failure, anemia in setting of GI bleed with concern for ischemic colitis, bilateral lower limb DVT with concerns for pulmonary embolism post IVC filter placement Critical Care Time: The high probability of a clinically significant, sudden or life threatening deterioration of the patient's [cardiac, renal, pulmonary] system(s) required my full and direct attention, intervention and personal management. The critical care time is as shown. This time is in addition to time spent performing any reported procedures but includes the following: [x] Data and vital sign review and interpretation [x] Patient assessment, examination and intervention [x] Documentation [x] Medication orders and management Critical Care Time (min): 70 Coding Level of Care Code Critical Care >/= 30 minutes Critical care time (in minutes): 70 The high probability of a clinically significant, sudden or life threatening deterioration, as referenced in this documentation, required my full and direct attention, intervention and personal management. The critical care time shown is in addition to time spent performing any reported separately billable procedures and includes the following: [x] Data and vital sign review and interpretation [x ] Patient assessment, examination and intervention [x] Medication orders and management [x] Patient/Family updates as able [x] Care Coordination and Documentation. Diagnoses Cardiogenic shock R57.0 Acute hypoxemic respiratory failure J96.01 ZACK (acute kidney injury) N17.9 Anemia D64.9 Anemia type: iron deficiency Gastrointestinal hemorrhage, unspecified gastrointestinal hemorrhage type K92.2 GI bleed type/associated pathology: unspecified gastrointestinal hemorrhage type Ischemic colitis K55.9 Hypotension due to hypovolemia E86.1 Hypotension type: hypotension due to hypovolemia Hydronephrosis N13.30 Urinary retention R33.9 CKD (chronic kidney disease) N18.9 COPD (chronic obstructive pulmonary disease) J44.9 Pulmonary hypertension I27.20 Deep vein thrombosis (DVT) of left lower extremity, unspecified chronicity, unspecified vein I82.402 Affected thrombotic vein of extremity: unspecified vein of extremity Chronicity: unspecified S/P IVC filter Z95.828 Mild aortic stenosis I35.0 UTI (urinary tract infection) N39.0 Generalized weakness R53.1 Goals of care, counseling/discussion Z71.89
[2024-07-21 14:57] LABS: Anion Gap 15.7 (5-19); Blood Urea Nitrogen 80 mg/dL (8-23); Calcium 8.2 mg/dL (8.5-10.5); Carbon Dioxide 24 mmol/L (22-29); Chloride 93 mmol/L (98-107); Creatinine Clr Calc Pharmacy 12.3164; Glucose 144 mg/dL (65-115); Osmolality Calculated 293 mOsm/kg (285-295); Potassium 4.7 mmol/L (3.5-5.1); Sodium 128 mmol/L (136-145)
[2024-07-21 17:00] LABS: Glucose Point of Care 145 mg/dL (70-110)
[2024-07-21 22:29] LABS: Glucose Point of Care 101 mg/dL (70-110)
[2024-07-22] VITALS (97 sets, daily range): BP systolic 86–122; BP diastolic 46–75; PULSE 8–95; RESP 14–27; TEMP 36.2–36.7; O2SAT 84–100; BMI 30.8
[2024-07-22] MEDS: pantoprazole 40 mg SDV IVP ×2 (02:26→15:40)
[2024-07-22] MEDS: meropenem 1,000 mg SDV 1000 MG IVP ×2 (02:26→15:50)
[2024-07-22 05:39] LABS: Basophils # 0.1 10^3/uL (0.0-0.1); Basophils % 0.5 %; Eosinophils # 0.5 10^3/uL (0.0-0.8); Eosinophils % 3.1 %; Hematocrit 27.7 % (36-47); Lymphocytes # 1.2 10^3/uL (0.8-4.8); Lymphocytes % 8.2 %; Mean Corpuscular HGB Conc 30.7 g/dL (30-55); Mean Corpuscular Hemoglobin 28.6 pg (27-33); Mean Corpuscular Volume 93.3 fl (85-98); Mean Platelet Volume 10.1 fL (7.4-10.4); Monocytes # 0.7 10^3/uL (0.2-0.9); Monocytes % 5.1 %; Neutrophils # 11.96 10^3/uL (1.8-7.7); Neutrophils % 81.9 %; Nucleated Red Blood Cells % 0 %; Platelet Count 177 10^3/cmm (157-399); Red Blood Count 2.97 10^6/uL (3.85-5.65); Red Cell Distribution Width 17.9 % (12.1-15.1); White Blood Count 14.59 10^3/uL (3.29-11.43)
[2024-07-22 05:41] LABS: Alanine Aminotransferase 9 U/L (0-33); Albumin Level 2.7 g/dL (3.5-5.2); Alkaline Phosphatase 94 U/L (35-105); Anion Gap 15.6 (5-19); Aspartate Amino Transferase 14 U/L (0-32); Calcium 8.3 mg/dL (8.5-10.5); Carbon Dioxide 24 mmol/L (22-29); Chloride 93 mmol/L (98-107); Creatinine Clr Calc Pharmacy 11.9743; Globulin 2.7 g/dL (1.3-4.6); Glucose 83 mg/dL (65-115); Osmolality Calculated 290 mOsm/kg (285-295); Potassium 4.6 mmol/L (3.5-5.1); Sodium 128 mmol/L (136-145); Total Bilirubin 0.2 mg/dL (0.15-1.2); Total Protein 5.4 g/dL (6.6-8.7)
[2024-07-22 05:45] LABS: Blood Urea Nitrogen 81 mg/dL (8-23)
--- NOTE | 2024-07-22 06:18 | PC.NURSE ---
Levophed Upon initial assessment of patient, Levophed administering at 1 mcg/min while the MAR displays paused. MAR updated to reflect administration.
[2024-07-22] MEDS: sucralfate 1 gm/10 mL Oral Liq UDC PO ×3 (06:23→21:31)
[2024-07-22] MEDS: budesonide 0.5 mg/2 mL Neb INHALATION ×2 (08:01→20:04)
[2024-07-22] MEDS: levalbuterol 0.63 mg/3 mL Neb INHALATION ×3 (08:01→20:04)
[2024-07-22] MEDS: ipratropium 0.5 mg/2.5 mL Neb INHALATION ×3 (08:01→20:04)
[2024-07-22 08:27] LABS: Glucose Point of Care 102 mg/dL (70-110)
[2024-07-22] MEDS: FUROsemide 40 mg Tablet PO (08:28)
[2024-07-22] MEDS: nystatin powder 15 gm Btl 1 APPLIC TOPICAL ×2 (08:28→17:32)
[2024-07-22] MEDS: polyethylene glycol 3350 Pkt 17 gm PO (08:28)
[2024-07-22] MEDS: folic acid 1 mg Tablet PO ×2 (08:28→17:32)
[2024-07-22] MEDS: sertraline 50 mg Tablet PO (08:28)
[2024-07-22] MEDS: sodium chloride 1 gm Tablet PO ×2 (08:28→17:32)
--- NOTE | 2024-07-22 08:40 | P.PN_ITS ---
Subjective 2 Subjective: ON 3l NC Medications: Reviewed: Yes Vitals/I&O/Wt Last Vital Signs Temp 97.9 F 07/22/24 04:45 Pulse 83 07/22/24 08:03 Resp 18 07/22/24 08:03 BP 108/50 07/22/24 08:00 Pulse Ox 96 07/22/24 08:03 O2 Del Method Nasal Cannula 07/22/24 08:03 O2 Flow Rate 3 07/22/24 08:03 07/21/24 07/22/24 07/22/24 22:59 06:59 14:59 Intake Total 660 / 950.062 600 / 1550.062 Output Total 150 / 500 700 / 1200 Balance 510 / 450.062 -100 / 350.062 Weight last 48 hrs Weight 76.5 kg Weight 74.5 kg Physical Exam 2 Narrative: Patient is awake alert no distress HEENT S1-S2 regular rate and rhythm Lungs clear No edema Urinary Catheter Management: Low: Cath Placed During This Visit: yes, but has since been removed by the nurse Reason for Continuing Indwelling Catheter: Accurate Measurement of Urinary Output in Critically Ill Patients Urinary Catheter Date of Insertion: 07/15/24 Urinary Catheter Time of Insertion: 14:05 Date Urinary Catheter Removed: 07/21/24 Time Urinary Catheter Discontinued: 15:09 Data 07/22/24 04:37 07/22/24 04:37 Micro: Microbiology 07/20/24 13:55 Urine Culture - Preliminary Urine,Clean Catch Strep species, gamma-hemolytic A&P Assessment and plan (1) ZACK (acute kidney injury): 1. Acute on chronic kidney disease stage IV: Baseline creatinine is 2-3 range . Patient used to follow-up with nephrology but has lost to follow-up in the last 1 to 2 years. I suspect patient has progression of CKD . Noted thatPatient has fluctuating blood pressures with borderline low blood pressures currently. Requiring pressors intermittently Continue to monitor renal function for now, noted patient on low-dose pressors. Watch renal function for another 24 hours and if if Renal function worsens , Initiate dialysis via unnelled catheter and patient agreeable if dialysis indicated 2. Anemia: Low hemoglobin of 6.8 on presentation , status post transfusions, , will order OMKAR, noted patient had EGD and colonoscopy 3. Diastolic CHF, status post diuretics on hold for now, will likely need dialysis for volume management 4. Acute on chronic respiratory failure currently on 3 L O2 Patient evaluated using audiovisual cart. Time spent 40 minutes. (2) CKD (chronic kidney disease): Attestations 2 Medical Necessity Statement*: per rekha Coding Level of Care Code Acute Code for Chg Fwd Diagnoses ZACK (acute kidney injury) N17.9 CKD (chronic kidney disease) N18.9
--- NOTE | 2024-07-22 11:11 | PC.SOCIAL ---
IMM Update pg 2 of IMM Updated and reviewed w/ patient. Copy provided and copy dated, initialed and placed in chart.
[2024-07-22 11:22] LABS: Glucose Point of Care 141 mg/dL (70-110)
--- NOTE | 2024-07-22 14:32 | PC.OT ---
OT TREATMENT ATTEMPTED. PATIENT SLEEPING AND AWAKENED EASILY. SHE REPORTS THAT SHE IS TOO TIRED AT THIS TIME.
[2024-07-22] MEDS: benzonatate 100 mg Capsule PO (15:51)
[2024-07-22 17:22] LABS: Glucose Point of Care 121 mg/dL (70-110)
--- NOTE | 2024-07-22 19:28 | P.PN_ITS ---
Subjective 2 Subjective: Today she is feeling slightly better. Still some abdominal discomfort in lower abdomen. Vitals/I&O/Wt Last Vital Signs Temp 97.1 F L 07/22/24 09:00 Pulse 86 07/22/24 18:00 Resp 22 H 07/22/24 18:00 BP 109/59 07/22/24 18:00 Pulse Ox 95 07/22/24 18:00 O2 Del Method Nasal Cannula 07/22/24 13:32 O2 Flow Rate 3 07/22/24 13:32 07/22/24 07/22/24 07/22/24 06:59 14:59 22:59 Intake Total 600 / 1550.062 253.688 / 253.688 480 / 733.688 Output Total 700 / 1200 850 / 850 Balance -100 / 350.062 253.688 / 253.688 -370 / -116.312 Weight last 48 hrs Weight 76.5 kg Weight 74.5 kg Physical Exam 2 Const: COMMON NORMALS: patient oriented x3 and alert GENERAL APPEARANCE: c ooperative ORIENTATION/CONSCIOUSNESS: Yes awake HENMT: COMMON NORMALS: oropharynx normal Neck/C-Spine: COMMON NORMALS: no JVD Resp: COMMON NORMALS: normal respiratory effort and clear to auscultation bilaterally AUSCULTATION: clear to auscultation bilaterally Cardio: COMMON NORMALS: no JVD, regular rhythm, S1 normal heart sound present, S2 normal heart sound present and No murmurs present (Cardio) RHYTHM: regular rhythm HEART SOUNDS: S1 normal heart sound present and S2 normal heart sound present GI: COMMON NORMALS: Normal to inspection, nondistended, normoactive bowel sounds present and Soft to palpation PALPATION: Yes Soft to palpation Extremity: COMMON NORMALS: no joint enlargement and no pedal edema Neuro: COMMON NORMALS: patient oriented x3 and moves all extremities S ENSORIUM/ORIENTATION: Yes alert Skin: COMMON NORMALS: no rashes or lesions noted GENERAL SKIN EXAM: no rashes or lesions noted Urinary Catheter Management: Low: Cath Placed During This Visit: yes, but has since been removed by the nurse Reason for Continuing Indwelling Catheter: Accurate Measurement of Urinary Output in Critically Ill Patients Urinary Catheter Date of Insertion: 07/15/24 Urinary Catheter Time of Insertion: 14:05 Date Urinary Catheter Removed: 07/21/24 Time Urinary Catheter Discontinued: 15:09 Data 07/22/24 04:37 07/22/24 04:37 Micro: Microbiology 07/20/24 13:55 Urine Culture - Final Urine,Clean Catch Enterococcus faecalis A&P Assessment and plan (1) Cardiogenic shock: (2) Acute hypoxemic respiratory failure: (3) ZACK (acute kidney injury): (4) Anemia: Qualifiers: Anemia type: iron deficiency (5) GI bleed: Qualifiers: GI bleed type/associated pathology: unspecified gastrointestinal hemorrhage type Qualified Code(s): K92.2 - Gastrointestinal hemorrhage, unspecified (6) Ischemic colitis: (7) Hypotension: Qualifiers: Hypotension type: hypotension due to hypovolemia Qualified Code(s): E 86.1 - Hypovolemia (8) Hydronephrosis: (9) Urinary retention: (10) CKD (chronic kidney disease): (11) COPD (chronic obstructive pulmonary disease): (12) Pulmonary hypertension: (13) Deep vein thrombosis, lower left extremity: Qualifiers: Affected thrombotic vein of extremity: unspecified vein of extremity C hronicity: unspecified Qualified Code(s): I82.402 - Acute embolism and thrombosis of unspecified deep veins of left lower extremity (14) S/P IVC filter: (15) Mild aortic stenosis: (16) UTI (urinary tract infection): (17) Generalized weakness: (18) Goals of care, counseling/discussion: Plan 79-year-old lady with past medical history of severe pulmonary hypertension, left lower limb DVT, CKD presented to the ER because of generalized weakness, increased difficulty in breathing than her baseline, orthopnea found to have new anemia with concerns for GI bleed, persistent hypotension, right hydroureteronephrosis with urinary retention. Shock: Reviewed vitals, CBC, CMP. Still on 1 mcg/min Levophed. Wean off pressor as tolerating. Reviewed hemoglobin, without further decrease, with improvement to 8.5 today. Reassess blood pressures. Suspected possibly cardiogenic in the setting of aortic stenosis. Reviewed echocardiogram, noted ejection fraction 60%, grade 1 diastolic dysfunction. Mild to moderate aortic stenosis. Again required Levophed post EGD/colonoscopy. Being weaned down giving me pressure was 65. Holding off on antihypertensive. Generalized weakness: Continue to wean off pressor. Recheck anemia. PT assessment. Discussed with field case manager, she would like to pursue rehabilitation at SNF. Will require authorization. Being initiated. Most likely in setting of acute anemia along with hypoxia. Seems more acute on chronic. PT/OT evaluation. Fall precautions. UTI: Reviewed urine culture, growing Enterococcus faecalis. Resistant to tetracycline, intermediate to vancomycin. Stop meropenem. Switch to Cipro. Acute anemia: Reviewed hemoglobin, 8.5 today. Hemoglobin of 6 on admission. Iron deficiency anemia. FOBT positive. Post 2 unit of blood transfusion. Hemoglobin stable. Holding off on Eliquis. Underwent EGD and colonoscopy on 07/17. EGD within normal limits. On colonoscopy concerns for extensive small diverticulosis with entire mucosa somewhat ischemic and sloughed off which bled easily on touch. Surgery recommending holding off on anticoagulation for next few weeks. Continue with Protonix 40 mg twice daily. full liquid diet. Target hemoglobin around 8. Will transfuse accordingly. Acute hypoxia: Resolved. Status post IVC filter placement. Chronically on 3 L. History of COPD and severe pulmonary hypertension. ABG showing acute hypoxic and hypocapnic respiratory failure Repeat limited echocardiogram shows EF of 60% with grade 1 diastolic dysfunction, severe pulmonary hypertension with RVSP of 81 mmHg, moderate increase in right size, mild to moderate aortic valve stenosis with aortic valve area of 1.6. Fluid restriction to less than 1500 cc. IV Lasix 40 mg daily. Strict input output charting, daily weights. Likelihood of pulmonary embolism high. Patient does have DVT. Unfortunately CTA cannot be done given CKD. Holding off on anticoagulation for now given acute anemia. Given recommendations of holding off on anticoagulation for next few weeks. Nebulization with ipratropium, Xopenex every 6 hour, Pulmicort twice daily. Orthopnea: Mostly chronic. Continue to monitor. Head of the bed elevated 40 degrees. Acute urinary retention with right-sided hydroureteronephrosis: No calculi as per CT abdomen pelvis. Treat UTI. Low catheterization. Repeat renal ultrasound shows resolution of right-sided hydroureteronephrosis. CKD: Creatinine at baseline. Medical reconciliation done for nephrotoxic drugs. Appreciate CT abdomen pelvis. Monitor BMP in morning. Hypertension: On Cardizem 120 mg p.o. twice daily at home. Currently on hold because of hypotension. Monitor. Telemetry. Hyperglycemia: Blood sugars elevated. A1c 5.2. For now continue with sliding scale insulin. Monitor for hypoglycemia. Left lower limb DVT: Appreciate bilateral lower limb Dopplers. Concerning for acute DVT. Status post IVC filter as above given holding off on anticoagulation for next few weeks. Goals of care discussion: She would want her son Hoang to make decisions when she is not able to make for herself. For now she would want to remain full code but does not want chest compression to be tried more than 1 time. She is agreeable to short-term of mechanical ventilation if needed. CODE STATUS: Patient states her son Hoang will be the DPOA. Will confirm with Mr. Bolton with if he would like to be the DPOA or not. Patient would like to be full code for now. Full liquid diet SCD for DVT prophylaxis once DVT is ruled out. Protonix will be sufficient for PUD prophylaxis. Guarded prognosis. Attestations 2 Medical Necessity Statement*: Continue admission for assessment management of shock, UTI with resistant organism, acute anemia, colitis, possible ischemic colitis, DVT, possible PE. Coding Level of Care Code Critical Care >/= 30 minutes Critical care time (in minutes): 35 The high probability of a clinically significant, sudden or life threatening deterioration, as referenced in this documentation, required my full and direct attention, intervention and personal management. The critical care time shown is in addition to time spent performing any reported separately billable procedures and includes the following: [x] Data and vital sign review and interpretation [x ] Patient assessment, examination and intervention [x] Medication orders and management [x] Patient/Family updates as able [x] Care Coordination and Documentation. Diagnoses Cardiogenic shock R57.0 Acute hypoxemic respiratory failure J96.01 ZACK (acute kidney injury) N17.9 Anemia D64.9 Anemia type: iron deficiency Gastrointestinal hemorrhage, unspecified gastrointestinal hemorrhage type K92.2 GI bleed type/associated pathology: unspecified gastrointestinal hemorrhage type Ischemic colitis K55.9 Hypotension due to hypovolemia E86.1 Hypotension type: hypotension due to hypovolemia Hydronephrosis N13.30 Urinary retention R33.9 CKD (chronic kidney disease) N18.9 COPD (chronic obstructive pulmonary disease) J44.9 Pulmonary hypertension I27.20 Deep vein thrombosis (DVT) of left lower extremity, unspecified chronicity, unspecified vein I82.402 Affected thrombotic vein of extremity: unspecified vein of extremity Chronicity: unspecified S/P IVC filter Z95.828 Mild aortic stenosis I35.0 UTI (urinary tract infection) N39.0 Generalized weakness R53.1 Goals of care, counseling/discussion Z71.89
[2024-07-22] MEDS: ciprofloxacin 400 MG/200 ML PREMIX 200 MG IV (21:32)
[2024-07-22 21:51] LABS: Glucose Point of Care 142 mg/dL (70-110)
[2024-07-22] MEDS: insulin lispro 100 unit/1 mL SUBCUT (21:54)
[2024-07-23] VITALS (73 sets, daily range): BP systolic 84–126; BP diastolic 46–84; PULSE 78–104; RESP 15–30; TEMP 36.7–37.1; O2SAT 84–100
[2024-07-23] MEDS: pantoprazole 40 mg SDV IVP ×2 (02:57→15:25)
[2024-07-23 03:28] LABS: Basophils % 0.3 %; Eosinophils # 0.3 10^3/uL (0.0-0.8); Eosinophils % 2.5 %; Hematocrit 28.6 % (36-47); Lymphocytes # 1.2 10^3/uL (0.8-4.8); Lymphocytes % 10.4 %; Mean Corpuscular HGB Conc 30.1 g/dL (30-55); Mean Corpuscular Hemoglobin 27.8 pg (27-33); Mean Corpuscular Volume 92.6 fl (85-98); Mean Platelet Volume 10.1 fL (7.4-10.4); Monocytes # 0.7 10^3/uL (0.2-0.9); Monocytes % 6.1 %; Neutrophils # 8.81 10^3/uL (1.8-7.7); Neutrophils % 79.5 %; Nucleated Red Blood Cells % 0 %; Platelet Count 175 10^3/cmm (157-399); Red Blood Count 3.09 10^6/uL (3.85-5.65); Red Cell Distribution Width 18.7 % (12.1-15.1); White Blood Count 11.08 10^3/uL (3.29-11.43)
[2024-07-23 03:48] LABS: Anion Gap 14.1 (5-19); Blood Urea Nitrogen 77 mg/dL (8-23); Calcium 7.8 mg/dL (8.5-10.5); Carbon Dioxide 28 mmol/L (22-29); Chloride 95 mmol/L (98-107); Creatinine Clr Calc Pharmacy 12.8481; Glucose 92 mg/dL (65-115); Osmolality Calculated 297 mOsm/kg (285-295); Potassium 5.1 mmol/L (3.5-5.1); Sodium 132 mmol/L (136-145)
[2024-07-23 04:01] LABS: Slide Review Slide Review Perform
[2024-07-23] MEDS: sucralfate 1 gm/10 mL Oral Liq UDC PO ×3 (06:44→20:48)
[2024-07-23 07:56] LABS: Glucose Point of Care 113 mg/dL (70-110)
[2024-07-23] MEDS: budesonide 0.5 mg/2 mL Neb INHALATION ×2 (07:59→22:24)
[2024-07-23] MEDS: ipratropium 0.5 mg/2.5 mL Neb INHALATION ×3 (07:59→22:25)
[2024-07-23] MEDS: levalbuterol 0.63 mg/3 mL Neb INHALATION ×3 (07:59→22:25)
[2024-07-23] MEDS: sertraline 50 mg Tablet PO (08:27)
[2024-07-23] MEDS: folic acid 1 mg Tablet PO ×2 (08:27→17:18)
[2024-07-23] MEDS: FUROsemide 40 mg Tablet PO (08:27)
[2024-07-23] MEDS: sodium chloride 1 gm Tablet PO ×2 (08:27→17:18)
[2024-07-23] MEDS: nystatin powder 15 gm Btl 1 APPLIC TOPICAL ×2 (08:28→17:17)
[2024-07-23 12:53] LABS: Glucose Point of Care 119 mg/dL (70-110)
--- NOTE | 2024-07-23 13:42 | P.PN_ITS ---
Subjective 2 Subjective: She is doing little better today but abdomen has still been bothering her. Blood pressure has improved. Vitals/I&O/Wt Last Vital Signs Temp 98.2 F 07/23/24 04:00 Pulse 87 07/23/24 12:30 Resp 19 H 07/23/24 12:30 BP 106/57 07/23/24 12:30 Pulse Ox 99 07/23/24 12:30 O2 Del Method Nasal Cannula 07/23/24 07:59 O2 Flow Rate 3 07/23/24 07:59 07/22/24 07/23/24 07/23/24 22:59 06:59 14:59 Intake Total 780 / 1033.688 200 / 1233.688 240 / 240 Output Total 850 / 850 950 / 1800 Balance -70 / 183.688 -750 / -566.312 240 / 240 Weight last 48 hrs Weight 76.593 kg Weight 76.5 kg Physical Exam 2 Const: COMMON NORMALS: patient oriented x3 and alert GENERAL APPEARANCE: c ooperative ORIENTATION/CONSCIOUSNESS: Yes awake HENMT: COMMON NORMALS: oropharynx normal Neck/C-Spine: COMMON NORMALS: no JVD Resp: COMMON NORMALS: normal respiratory effort and clear to auscultation bilaterally AUSCULTATION: clear to auscultation bilaterally Cardio: COMMON NORMALS: no JVD, regular rhythm, S1 normal heart sound present, S2 normal heart sound present and No murmurs present (Cardio) RHYTHM: regular rhythm HEART SOUNDS: S1 normal heart sound present and S2 normal heart sound present GI: COMMON NORMALS: Normal to inspection, nondistended, normoactive bowel sounds present, Soft to palpation and non-tender PALPATION: Yes Soft to palpation Extremity: COMMON NORMALS: no joint enlargement and no pedal edema Neuro: COMMON NORMALS: patient oriented x3 and moves all extremities S ENSORIUM/ORIENTATION: Yes alert Skin: COMMON NORMALS: no rashes or lesions noted GENERAL SKIN EXAM: no rashes or lesions noted Urinary Catheter Management: Low: Cath Placed During This Visit: yes, but has since been removed by the nurse Reason for Continuing Indwelling Catheter: Accurate Measurement of Urinary Output in Critically Ill Patients Urinary Catheter Date of Insertion: 07/15/24 Urinary Catheter Time of Insertion: 14:05 Date Urinary Catheter Removed: 07/21/24 Time Urinary Catheter Discontinued: 15:09 Data 07/23/24 03:04 07/23/24 03:04 Micro: Microbiology 07/20/24 13:55 Urine Culture - Final Urine,Clean Catch Enterococcus faecalis A&P Assessment and plan (1) Cardiogenic shock: (2) Acute hypoxemic respiratory failure: (3) ZACK (acute kidney injury): (4) Anemia: Qualifiers: Anemia type: iron deficiency (5) GI bleed: Qualifiers: GI bleed type/associated pathology: unspecified gastrointestinal hemorrhage type Qualified Code(s): K92.2 - Gastrointestinal hemorrhage, unspecified (6) Ischemic colitis: (7) Hypotension: Qualifiers: Hypotension type: hypotension due to hypovolemia Qualified Code(s): E 86.1 - Hypovolemia (8) Hydronephrosis: (9) Urinary retention: (10) CKD (chronic kidney disease): (11) COPD (chronic obstructive pulmonary disease): (12) Pulmonary hypertension: (13) Deep vein thrombosis, lower left extremity: Qualifiers: Affected thrombotic vein of extremity: unspecified vein of extremity C hronicity: unspecified Qualified Code(s): I82.402 - Acute embolism and thrombosis of unspecified deep veins of left lower extremity (14) S/P IVC filter: (15) Mild aortic stenosis: (16) UTI (urinary tract infection): (17) Generalized weakness: (18) Goals of care, counseling/discussion: Plan 79-year-old lady with past medical history of severe pulmonary hypertension, left lower limb DVT, CKD presented to the ER because of generalized weakness, increased difficulty in breathing than her baseline, orthopnea found to have new anemia with concerns for GI bleed, persistent hypotension, right hydroureteronephrosis with urinary retention. Shock: Reviewed vitals, CBC, BMP P. Reviewed pressor requirement, S, off Levophed. Maintaining blood pressure. DC Levophed. Will transfer out of ICU. PT assessment requested. Monitor blood pressures. Wound wound bed from postdischarge rehabilitation. Discussed with nursing, case mgr. Suspected possibly cardiogenic in the setting of aortic stenosis. Reviewed echocardiogram, noted ejection fraction 60%, grade 1 diastolic dysfunction. Mild to moderate aortic stenosis. Required Levophed post EGD/colonoscopy. Holding off on antihypertensive. Generalized weakness: PT assessment requested. Reviewed blood counts, maintaining hemoglobin at this time. Recheck anemia. PT assessment. Discussed with case mgr, she would like to pursue rehabilitation at SNF. Will require authorization. Being initiated. Most likely in setting of acute anemia along with hypoxia. Seems more acute on chronic. PT/OT evaluation. Fall precautions. UTI: Continue treatment of resistant organism. Continue Cipro to complete course. Reviewed urine culture, growing Enterococcus faecalis. Resistant to tetracycline, intermediate to vancomycin. Acute anemia: Reviewed hemoglobin, 8.6 today. Repeat CBC requested hemoglobin of 6 on admission. Iron deficiency anemia. FOBT positive. Post 2 unit of blood transfusion. Hemoglobin stable. Holding off on Eliquis. Underwent EGD and colonoscopy on 07/17. EGD within normal limits. On colonoscopy concerns for extensive small diverticulosis with entire mucosa somewhat ischemic and sloughed off which bled easily on touch. Surgery recommending holding off on anticoagulation for next few weeks. Continue with Protonix 40 mg twice daily. full liquid diet. Target hemoglobin around 8. Will transfuse accordingly. Acute hypoxia: Resolved. Status post IVC filter placement. Chronically on 3 L. History of COPD and severe pulmonary hypertension. ABG showing acute hypoxic and hypocapnic respiratory failure Repeat limited echocardiogram shows EF of 60% with grade 1 diastolic dysfunction, severe pulmonary hypertension with RVSP of 81 mmHg, moderate increase in right size, mild to moderate aortic valve stenosis with aortic valve area of 1.6. Fluid restriction to less than 1500 cc. IV Lasix 40 mg daily. Strict input output charting, daily weights. Likelihood of pulmonary embolism high. Patient does have DVT. Unfortunately CTA cannot be done given CKD. Holding off on anticoagulation for now given acute anemia. Given recommendations of holding off on anticoagulation for next few weeks. Nebulization with ipratropium, Xopenex every 6 hour, Pulmicort twice daily. Orthopnea: Mostly chronic. Continue to monitor. Head of the bed elevated 40 degrees. Acute urinary retention with right-sided hydroureteronephrosis: No calculi as per CT abdomen pelvis. Treat UTI. Low catheterization. Repeat renal ultrasound shows resolution of right-sided hydroureteronephrosis. CKD: Creatinine at baseline. Medical reconciliation done for nephrotoxic drugs. Appreciate CT abdomen pelvis. Monitor BMP in morning. Hypertension: On Cardizem 120 mg p.o. twice daily at home. Currently on hold because of hypotension. Monitor. Telemetry. Hyperglycemia: Blood sugars elevated. A1c 5.2. For now continue with sliding scale insulin. Monitor for hypoglycemia. Left lower limb DVT: Appreciate bilateral lower limb Dopplers. Concerning for acute DVT. Status post IVC filter as above given holding off on anticoagulation for next few weeks. Goals of care discussion: She would want her son Hoang to make decisions when she is not able to make for herself. For now she would want to remain full code but does not want chest compression to be tried more than 1 time. She is agreeable to short-term of mechanical ventilation if needed. CODE STATUS: Patient states her son Hoang will be the DPOA. Will confirm with Mr. Bolton with if he would like to be the DPOA or not. Patient would like to be full code for now. Full liquid diet SCD for DVT prophylaxis once DVT is ruled out. Protonix will be sufficient for PUD prophylaxis. Guarded prognosis. Attestations 2 Medical Necessity Statement*: Continue admission for assessment management after shock, UTI with resistant organism, acute anemia, colitis, possible ischemic colitis, DVT, possible PE. and High MDM includes amount and/or complexity of data reviewed/ordered [ resulted lab(s)/test(s), ordered lab(s)/test(s) and other healthcare professional discussion] as documented Diagnoses Cardiogenic shock R57.0 Acute hypoxemic respiratory failure J96.01 ZACK (acute kidney injury) N17.9 Anemia D64.9 Anemia type: iron deficiency Gastrointestinal hemorrhage, unspecified gastrointestinal hemorrhage type K92.2 GI bleed type/associated pathology: unspecified gastrointestinal hemorrhage type Ischemic colitis K55.9 Hypotension due to hypovolemia E86.1 Hypotension type: hypotension due to hypovolemia Hydronephrosis N13.30 Urinary retention R33.9 CKD (chronic kidney disease) N18.9 COPD (chronic obstructive pulmonary disease) J44.9 Pulmonary hypertension I27.20 Deep vein thrombosis (DVT) of left lower extremity, unspecified chronicity, unspecified vein I82.402 Affected thrombotic vein of extremity: unspecified vein of extremity Chronicity: unspecified S/P IVC filter Z95.828 Mild aortic stenosis I35.0 UTI (urinary tract infection) N39.0 Generalized weakness R53.1 Goals of care, counseling/discussion Z71.89
[2024-07-23] MEDS: morphine 4 mg/mL SDV 1 mL 2 MG IVP (17:25)
--- NOTE | 2024-07-23 17:30 | PM.PN ---
Subjective Subjective: feels better Medications: Reviewed: Yes Vitals/I&O/Wt Last Vital Signs Temp 98.2 F 07/23/24 04:00 Pulse 85 07/23/24 16:00 Resp 20 H 07/23/24 16:00 BP 104/56 07/23/24 16:15 Pulse Ox 92 07/23/24 16:00 O2 Del Method Nasal Cannula 07/23/24 13:57 O2 Flow Rate 3 07/23/24 13:57 07/23/24 07/23/24 07/23/24 06:59 14:59 22:59 Intake Total 200 / 1233.688 240 / 240 Output Total 950 / 1800 Balance -750 / -566.312 240 / 240 Weight last 48 hrs Weight 76.593 kg Weight 76.5 kg Physical Exam Narrative: Patient is awake alert no distress HEENT S1-S2 regular rate and rhythm Lungs clear No edema Urinary Catheter Management: Low: Cath Placed During This Visit: yes, but has since been removed by the nurse Reason for Continuing Indwelling Catheter: Accurate Measurement of Urinary Output in Critically Ill Patients Urinary Catheter Date of Insertion: 07/15/24 Urinary Catheter Time of Insertion: 14:05 Date Urinary Catheter Removed: 07/21/24 Time Urinary Catheter Discontinued: 15:09 Data 07/23/24 03:04 07/23/24 03:04 Micro: Microbiology 07/20/24 13:55 Urine Culture - Final Urine,Clean Catch Enterococcus faecalis A&P Assessment and plan (1) ZACK (acute kidney injury): 1. Acute on chronic kidney disease stage IV: Baseline creatinine is 2-3 range . Patient used to follow-up with nephrology but has lost to follow-up in the last 1 to 2 years. I suspect patient has progression of CKD . Noted thatPatient has fluctuating blood pressures with borderline low blood pressures currently. Requiring pressors intermittently Continue to monitor renal function for now, Cr and UOP improved today , noted patient on low-dose pressors. 2. Anemia: Low hemoglobin of 6.8 on presentation , status post transfusions, , will order OMKAR, noted patient had EGD and colonoscopy 3. Diastolic CHF, status post diuretics on hold for now, will likely need dialysis for volume management 4. Acute on chronic respiratory failure currently on 3 L O2 Patient evaluated using audiovisual cart. Time spent 40 minutes. (2) CKD (chronic kidney disease): Attestations Medical Necessity Statement*: per [facility] Coding Level of Care Code Acute Code for g Fwd Diagnoses ZACK (acute kidney injury) N17.9 CKD (chronic kidney disease) N18.9
[2024-07-23 17:41] LABS: Glucose Point of Care 110 mg/dL (70-110)
[2024-07-23 20:26] LABS: Glucose Point of Care 188 mg/dL (70-110)
[2024-07-23] MEDS: ciprofloxacin 400 MG/200 ML PREMIX 200 MG IV (20:48)
[2024-07-23] MEDS: insulin lispro 100 unit/1 mL SUBCUT (20:48)
[2024-07-24] VITALS (14 sets, daily range): BP systolic 94–106; BP diastolic 56–61; PULSE 84–100; RESP 17–21; TEMP 36.7–37.1; O2SAT 90–95
[2024-07-24] MEDS: pantoprazole 40 mg SDV IVP ×2 (02:42→14:53)
[2024-07-24] MEDS: levalbuterol 0.63 mg/3 mL Neb INHALATION ×4 (03:33→19:38)
[2024-07-24] MEDS: ipratropium 0.5 mg/2.5 mL Neb INHALATION ×4 (03:34→19:38)
[2024-07-24 06:07] LABS: Basophils % 0.3 %; Eosinophils # 0.2 10^3/uL (0.0-0.8); Eosinophils % 2.2 %; Hematocrit 28.3 % (36-47); Lymphocytes # 1.5 10^3/uL (0.8-4.8); Lymphocytes % 15.2 %; Mean Corpuscular Hemoglobin 27.9 pg (27-33); Mean Corpuscular Volume 92.8 fl (85-98); Monocytes # 0.7 10^3/uL (0.2-0.9); Monocytes % 7.3 %; Neutrophils # 7.44 10^3/uL (1.8-7.7); Neutrophils % 73.6 %; Nucleated Red Blood Cells % 0 %; Platelet Count 186 10^3/cmm (157-399); Red Blood Count 3.05 10^6/uL (3.85-5.65); Red Cell Distribution Width 19.4 % (12.1-15.1); White Blood Count 10.11 10^3/uL (3.29-11.43)
[2024-07-24] MEDS: sucralfate 1 gm/10 mL Oral Liq UDC PO ×4 (06:17→20:24)
[2024-07-24 06:24] LABS: Blood Urea Nitrogen 75 mg/dL (8-23); Calcium 7.6 mg/dL (8.5-10.5); Carbon Dioxide 27 mmol/L (22-29); Chloride 97 mmol/L (98-107); Creatinine Clr Calc Pharmacy 13.7265; Glucose 80 mg/dL (65-115); Osmolality Calculated 299 mOsm/kg (285-295); Sodium 134 mmol/L (136-145)
[2024-07-24 06:29] LABS: Glucose Point of Care 100 mg/dL (70-110)
[2024-07-24 07:13] LABS: Slide Review Slide Review Perform
[2024-07-24] MEDS: polyethylene glycol 3350 Pkt 17 gm PO (07:48)
[2024-07-24] MEDS: sodium chloride 1 gm Tablet PO ×2 (07:48→17:19)
[2024-07-24] MEDS: FUROsemide 40 mg Tablet PO (07:48)
[2024-07-24] MEDS: folic acid 1 mg Tablet PO ×2 (07:48→17:19)
[2024-07-24] MEDS: sertraline 50 mg Tablet PO (07:48)
[2024-07-24] MEDS: nystatin powder 15 gm Btl 1 APPLIC TOPICAL ×2 (07:49→17:20)
[2024-07-24] MEDS: budesonide 0.5 mg/2 mL Neb INHALATION ×2 (08:55→19:38)
[2024-07-24 10:42] LABS: Glucose Point of Care 148 mg/dL (70-110)
--- NOTE | 2024-07-24 11:13 | P.PN_ITS ---
Subjective 2 Subjective: no new c/o on 3L NC Medications: Reviewed: Yes Vitals/I&O/Wt Last Vital Signs Temp 98.1 F 07/24/24 07:09 Pulse 93 07/24/24 08:57 Resp 17 07/24/24 08:57 BP 100/61 07/24/24 07:09 Pulse Ox 90 07/24/24 08:57 O2 Del Method Nasal Cannula 07/24/24 08:57 O2 Flow Rate 3 07/24/24 08:57 07/23/24 07/24/24 07/24/24 22:59 06:59 14:59 Intake Total 920 / 1160 240 / 1400 236 / 236 Output Total 1100 / 1100 900 / 2000 Balance -180 / 60 -660 / -600 236 / 236 Weight last 48 hrs Weight 77.337 kg Weight 76.593 kg Physical Exam 2 Narrative: Patient is awake alert no distress HEENT S1-S2 regular rate and rhythm Lungs clear No edema Urinary Catheter Management: Low: Cath Placed During This Visit: yes, but has since been removed by the nurse Reason for Continuing Indwelling Catheter: Acute Urinary Retention or Obstruction Urinary Catheter Date of Insertion: 07/15/24 Urinary Catheter Time of Insertion: 14:05 Date Urinary Catheter Removed: 07/21/24 Time Urinary Catheter Discontinued: 15:09 Data 07/24/24 05:54 07/24/24 05:54 A&P Assessment and plan (1) ZACK (acute kidney injury): 1. Acute on chronic kidney disease stage IV: Baseline creatinine is 2-3 range . Patient used to follow-up with nephrology but has lost to follow-up in the last 1 to 2 years. I suspect patient has progression of CKD . Noted thatPatient has fluctuating blood pressures with borderline low blood pressures currently. Requiring pressors intermittently Continue to monitor renal function for now, Cr and UOP improved slightly , Arrange Nephrology follow up @ [place] with [facility] 2. Anemia: Low hemoglobin of 6.8 on presentation , status post transfusions, , s/p OMKAR, noted patient had EGD and colonoscopy 3. Diastolic CHF, status post diuretics on hold for now, will likely need dialysis for volume management 4. Acute on chronic respiratory failure currently on 3 L O2 Patient evaluated using audiovisual cart. Time spent 40 minutes. (2) CKD (chronic kidney disease): Attestations 2 Medical Necessity Statement*: per medicine Coding Level of Care Code Acute Code for Chg Fwd Diagnoses ZACK (acute kidney injury) N17.9 CKD (chronic kidney disease) N18.9
[2024-07-24] MEDS: insulin lispro 100 unit/1 mL SUBCUT ×2 (11:33→20:24)
[2024-07-24 16:57] LABS: Glucose Point of Care 114 mg/dL (70-110)
--- NOTE | 2024-07-24 17:52 | P.PN_ITS ---
Subjective 2 Subjective: Today she is feeling somewhat better. She is not bothered by her abdomen at all today. Tolerating oral intake. No nausea or vomiting. No hematochezia or melena. Vitals/I&O/Wt Last Vital Signs Temp 98.2 F 07/24/24 15:11 Pulse 89 07/24/24 15:11 Resp 18 07/24/24 15:11 BP 102/59 07/24/24 15:11 Pulse Ox 92 07/24/24 15:11 O2 Del Method Nasal Cannula 07/24/24 15:11 O2 Flow Rate 3 07/24/24 15:11 07/24/24 07/24/24 07/24/24 06:59 14:59 22:59 Intake Total 240 / 1400 716 / 716 358 / 1074 Output Total 900 / 2000 Balance -660 / -600 716 / 716 358 / 1074 Weight last 48 hrs Weight 77.337 kg Weight 76.593 kg Physical Exam 2 Narrative: Sitting up in bed. Nasal cannula on. Const: COMMON NORMALS: patient oriented x3 and alert GENERAL APPEARANCE: c ooperative ORIENTATION/CONSCIOUSNESS: Yes awake HENMT: COMMON NORMALS: oropharynx normal Neck/C-Spine: COMMON NORMALS: no JVD Resp: COMMON NORMALS: normal respiratory effort and clear to auscultation bilaterally AUSCULTATION: clear to auscultation bilaterally Cardio: COMMON NORMALS: no JVD, regular rhythm, S1 normal heart sound present, S2 normal heart sound present and No murmurs present (Cardio) RHYTHM: regular rhythm HEART SOUNDS: S1 normal heart sound present and S2 normal heart sound present GI: COMMON NORMALS: Normal to inspection, nondistended, normoactive bowel sounds present, Soft to palpation and non-tender PALPATION: Yes Soft to palpation Extremity: COMMON NORMALS: no joint enlargement and no pedal edema Neuro: COMMON NORMALS: patient oriented x3 and moves all extremities S ENSORIUM/ORIENTATION: Yes alert Skin: COMMON NORMALS: no rashes or lesions noted GENERAL SKIN EXAM: no rashes or lesions noted Urinary Catheter Management: Low: Cath Placed During This Visit: yes, but has since been removed by the nurse Reason for Continuing Indwelling Catheter: Acute Urinary Retention or Obstruction Urinary Catheter Date of Insertion: 07/15/24 Urinary Catheter Time of Insertion: 14:05 Date Urinary Catheter Removed: 07/21/24 Time Urinary Catheter Discontinued: 15:09 Data 07/24/24 05:54 07/24/24 05:54 A&P Assessment and plan (1) Cardiogenic shock: (2) Acute hypoxemic respiratory failure: (3) ZACK (acute kidney injury): (4) Anemia: Qualifiers: Anemia type: iron deficiency (5) GI bleed: Qualifiers: GI bleed type/associated pathology: unspecified gastrointestinal hemorrhage type Qualified Code(s): K92.2 - Gastrointestinal hemorrhage, unspecified (6) Ischemic colitis: (7) Hypotension: Qualifiers: Hypotension type: hypotension due to hypovolemia Qualified Code(s): E 86.1 - Hypovolemia (8) Hydronephrosis: (9) Urinary retention: (10) CKD (chronic kidney disease): (11) COPD (chronic obstructive pulmonary disease): (12) Pulmonary hypertension: (13) Deep vein thrombosis, lower left extremity: Qualifiers: Affected thrombotic vein of extremity: unspecified vein of extremity C hronicity: unspecified Qualified Code(s): I82.402 - Acute embolism and thrombosis of unspecified deep veins of left lower extremity (14) S/P IVC filter: (15) Mild aortic stenosis: (16) UTI (urinary tract infection): (17) Generalized weakness: (18) Goals of care, counseling/discussion: Plan 79-year-old lady with past medical history of severe pulmonary hypertension, left lower limb DVT, CKD presented to the ER because of generalized weakness, increased difficulty in breathing than her baseline, orthopnea found to have new anemia with concerns for GI bleed, persistent hypotension, right hydroureteronephrosis with urinary retention. Generalized weakness: Discussed with pillowcase cleaner, pending authorization for her to go on to rehabilitation. Continue PT . Reviewed vitals, CBC, afebrile, leukocytosis. Hemoglobin so far holding steady. 8.5. Most likely in setting of acute anemia along with hypoxia. Seems more acute on chronic. PT/OT evaluation. Fall precautions. Shock: Resolved. Maintaining blood pressure so far. Continue to monitor. Suspected possibly cardiogenic in the setting of aortic stenosis. Reviewed echocardiogram, noted ejection fraction 60%, grade 1 diastolic dysfunction. Mild to moderate aortic stenosis. Required Levophed post EGD/colonoscopy. Holding off on antihypertensive. UTI: Continue treatment of resistant organism. Continue Cipro to complete course. Symptoms abating. DC IV morphine. Reviewed urine culture, growing Enterococcus faecalis. Resistant to tetracycline, intermediate to vancomycin. Acute anemia: Hemoglobin on reviewIs a 25. Repeat CBC requested. hemoglobin of 6 on admission. Iron deficiency anemia. FOBT positive. Post 2 unit of blood transfusion. Hemoglobin stable. Holding off on Eliquis. Underwent EGD and colonoscopy on 07/17. EGD within normal limits. On colonoscopy concerns for extensive small diverticulosis with entire mucosa somewhat ischemic and sloughed off which bled easily on touch. Surgery recommending holding off on anticoagulation for next few weeks. Continue with Protonix 40 mg twice daily. full liquid diet. Target hemoglobin around 8. Will transfuse accordingly. Acute hypoxia: Resolved. Status post IVC filter placement. Chronically on 3 L. History of COPD and severe pulmonary hypertension. ABG showing acute hypoxic and hypocapnic respiratory failure Repeat limited echocardiogram shows EF of 60% with grade 1 diastolic dysfunction, severe pulmonary hypertension with RVSP of 81 mmHg, moderate increase in right size, mild to moderate aortic valve stenosis with aortic valve area of 1.6. Fluid restriction to less than 1500 cc. IV Lasix 40 mg daily. Strict input output charting, daily weights. Likelihood of pulmonary embolism high. Patient does have DVT. Unfortunately CTA cannot be done given CKD. Holding off on anticoagulation for now given acute anemia. Given recommendations of holding off on anticoagulation for next few weeks. Nebulization with ipratropium, Xopenex every 6 hour, Pulmicort twice daily. Orthopnea: Mostly chronic. Continue to monitor. Head of the bed elevated 40 degrees. Acute urinary retention with right-sided hydroureteronephrosis: No calculi as per CT abdomen pelvis. Treat UTI. Low catheterization. Repeat renal ultrasound shows resolution of right-sided hydroureteronephrosis. CKD: Reviewed creatinine, BUN, potassium, reviewed nephrology note. Suspected progression of CKD. Follow-up with nephrology after discharge. Creatinine at baseline. Medical reconciliation done for nephrotoxic drugs. Appreciate CT abdomen pelvis. Monitor BMP in morning. Hypertension: On Cardizem 120 mg p.o. twice daily at home. Currently on hold because of hypotension. Monitor. Telemetry. Hyperglycemia: Blood sugars elevated. A1c 5.2. For now continue with sliding scale insulin. Monitor for hypoglycemia. Left lower limb DVT: Appreciate bilateral lower limb Dopplers. Concerning for acute DVT. Status post IVC filter as above given holding off on anticoagulation for next few weeks. Goals of care discussion: She would want her son Hoang to make decisions when she is not able to make for herself. For now she would want to remain full code but does not want chest compression to be tried more than 1 time. She is agreeable to short-term of mechanical ventilation if needed. CODE STATUS: Patient states her son Hoang will be the DPOA. Will confirm with Mr. Bolton with if he would like to be the DPOA or not. Patient would like to be full code for now. Full liquid diet SCD for DVT prophylaxis once DVT is ruled out. Protonix will be sufficient for PUD prophylaxis. Guarded prognosis. Attestations 2 Medical Necessity Statement*: Continue admission for assessment management after shock, UTI with resistant organism, acute anemia, colitis, possible ischemic colitis, DVT, possible PE. and High MDM includes amount and/or complexity of data reviewed/ordered [ previous or external records, resulted lab(s)/test(s), ordered lab(s)/test(s) and other healthcare professional discussion] as documented Diagnoses Cardiogenic shock R57.0 Acute hypoxemic respiratory failure J96.01 ZACK (acute kidney injury) N17.9 Anemia D64.9 Anemia type: iron deficiency Gastrointestinal hemorrhage, unspecified gastrointestinal hemorrhage type K92.2 GI bleed type/associated pathology: unspecified gastrointestinal hemorrhage type Ischemic colitis K55.9 Hypotension due to hypovolemia E86.1 Hypotension type: hypotension due to hypovolemia Hydronephrosis N13.30 Urinary retention R33.9 CKD (chronic kidney disease) N18.9 COPD (chronic obstructive pulmonary disease) J44.9 Pulmonary hypertension I27.20 Deep vein thrombosis (DVT) of left lower extremity, unspecified chronicity, unspecified vein I82.402 Affected thrombotic vein of extremity: unspecified vein of extremity Chronicity: unspecified S/P IVC filter Z95.828 Mild aortic stenosis I35.0 UTI (urinary tract infection) N39.0 Generalized weakness R53.1 Goals of care, counseling/discussion Z71.89
[2024-07-24] MEDS: ciprofloxacin 400 MG/200 ML PREMIX 200 MG IV (19:45)
[2024-07-24 20:16] LABS: Glucose Point of Care 159 mg/dL (70-110)
[2024-07-25] VITALS (16 sets, daily range): BP systolic 93–110; BP diastolic 49–66; PULSE 85–97; RESP 15–24; TEMP 36.7–37.1; O2SAT 91–98
[2024-07-25] MEDS: levalbuterol 0.63 mg/3 mL Neb INHALATION ×4 (02:21→19:55)
[2024-07-25] MEDS: ipratropium 0.5 mg/2.5 mL Neb INHALATION ×4 (02:21→19:55)
[2024-07-25] MEDS: pantoprazole 40 mg SDV IVP ×2 (02:37→15:59)
[2024-07-25 06:03] LABS: Basophils # 0.1 10^3/uL (0.0-0.1); Basophils % 0.6 %; Eosinophils # 0.2 10^3/uL (0.0-0.8); Eosinophils % 2.2 %; Hematocrit 28.4 % (36-47); Lymphocytes # 1.2 10^3/uL (0.8-4.8); Lymphocytes % 13.5 %; Mean Corpuscular HGB Conc 29.9 g/dL (30-55); Mean Corpuscular Hemoglobin 28.1 pg (27-33); Mean Corpuscular Volume 93.7 fl (85-98); Mean Platelet Volume 9.2 fL (7.4-10.4); Monocytes # 0.6 10^3/uL (0.2-0.9); Monocytes % 6.6 %; Neutrophils # 6.59 10^3/uL (1.8-7.7); Neutrophils % 75.8 %; Nucleated Red Blood Cells % 0 %; Platelet Count 184 10^3/cmm (157-399); Red Blood Count 3.03 10^6/uL (3.85-5.65); Red Cell Distribution Width 19.6 % (12.1-15.1); White Blood Count 8.68 10^3/uL (3.29-11.43)
[2024-07-25] MEDS: sucralfate 1 gm/10 mL Oral Liq UDC PO ×3 (06:04→20:04)
[2024-07-25 06:22] LABS: Anion Gap 13.4 (5-19); Blood Urea Nitrogen 66 mg/dL (8-23); Carbon Dioxide 29 mmol/L (22-29); Chloride 94 mmol/L (98-107); Creatinine Clr Calc Pharmacy 17.2962; Glucose 92 mg/dL (65-115); Osmolality Calculated 293 mOsm/kg (285-295); Potassium 4.4 mmol/L (3.5-5.1); Sodium 132 mmol/L (136-145)
[2024-07-25 06:23] LABS: Glucose Point of Care 102 mg/dL (70-110)
[2024-07-25] MEDS: budesonide 0.5 mg/2 mL Neb INHALATION ×2 (07:51→19:55)
[2024-07-25] MEDS: sertraline 50 mg Tablet PO (08:46)
[2024-07-25] MEDS: FUROsemide 40 mg Tablet PO (08:46)
[2024-07-25] MEDS: nystatin powder 15 gm Btl 1 APPLIC TOPICAL (08:46)
[2024-07-25] MEDS: polyethylene glycol 3350 Pkt 17 gm PO (08:46)
[2024-07-25] MEDS: sodium chloride 1 gm Tablet PO ×2 (08:46→18:02)
[2024-07-25] MEDS: folic acid 1 mg Tablet PO ×2 (08:46→18:02)
--- NOTE | 2024-07-25 09:47 | PC.SLP ---
Therapist attempted to see. The patient reported she had been vomiting and asked the therapist to hold off on therapy today.
--- NOTE | 2024-07-25 10:35 | PM.PN ---
Subjective Subjective: Discussed with her approval for rehabilitation at [facility]. She reports he is not feeling well today, has been having nausea and vomiting. Vitals/I&O/Wt Last Vital Signs Temp 98.0 F 07/25/24 07:44 Pulse 87 07/25/24 08:00 Resp 16 07/25/24 07:53 BP 110/66 07/25/24 07:44 Pulse Ox 96 07/25/24 07:53 O2 Del Method Nasal Cannula 07/25/24 07:53 O2 Flow Rate 4 07/25/24 07:53 07/24/24 07/25/24 07/25/24 22:59 06:59 14:59 Intake Total 1038 / 1754 0 / 1754 240 / 240 Output Total 2100 / 2100 650 / 2750 Balance -1062 / -346 -650 / -996 240 / 240 Weight last 48 hrs Weight 80.966 kg Weight 77.337 kg Physical Exam Narrative: Sitting up in bed. Nasal cannula on. Const: COMMON NORMALS: patient oriented x3 and alert GENERAL APPEARANCE: cooperative ORIENTATION/CONSCIOUSNESS: Yes awake HENMT: COMMON NORMALS: oropharynx normal Neck/C-Spine: COMMON NORMALS: no JVD Resp: COMMON NORMALS: normal respiratory effort and clear to auscultation bilaterally AUSCULTATION: clear to auscultation bilaterally Cardio: COMMON NORMALS: no JVD, regular rhythm, S1 normal heart sound present, S2 normal heart sound present and No murmurs present (Cardio) RHYTHM: regular rhythm HEART SOUNDS: S1 normal heart sound present and S2 normal heart sound present GI: COMMON NORMALS: Normal to inspection, nondistended, normoactive bowel sounds present, Soft to palpation and non-tender PALPATION: Yes Soft to palpation Extremity: COMMON NORMALS: no joint enlargement and no pedal edema Neuro: COMMON NORMALS: patient oriented x3 and moves all extremities SENSORIUM/ORIENTATION: Yes alert Skin: COMMON NORMALS: no rashes or lesions noted GENERAL SKIN EXAM: no rashes or lesions noted Urinary Catheter Management: Low: Cath Placed During This Visit: yes, but has since been removed by the nurse Reason for Continuing Indwelling Catheter: Acute Urinary Retention or Obstruction Urinary Catheter Date of Insertion: 07/15/24 Urinary Catheter Time of Insertion: 14:05 Date Urinary Catheter Removed: 07/21/24 Time Urinary Catheter Discontinued: 15:09 Data 07/25/24 05:50 07/25/24 05:50 A&P Assessment and plan (1) Cardiogenic shock: (2) Acute hypoxemic respiratory failure: (3) ZACK (acute kidney injury): (4) Anemia: Qualifiers: Anemia type: iron deficiency (5) GI bleed: Qualifiers: GI bleed type/associated pathology: unspecified gastrointestinal hemorrhage type Qualified Code(s): K92.2 - Gastrointestinal hemorrhage, unspecified (6) Ischemic colitis: (7) Hypotension: Qualifiers: Hypotension type: hypotension due to hypovolemia Qualified Code(s): E86.1 - Hypovolemia (8) Hydronephrosis: (9) Urinary retention: (10) CKD (chronic kidney disease): (11) COPD (chronic obstructive pulmonary disease): (12) Pulmonary hypertension: (13) Deep vein thrombosis, lower left extremity: Qualifiers: Affected thrombotic vein of extremity: unspecified vein of extremity Chronicity: unspecified Qualified Code(s): I82.402 - Acute embolism and thrombosis of unspecified deep veins of left lower extremity (14) S/P IVC filter: (15) Mild aortic stenosis: (16) UTI (urinary tract infection): (17) Generalized weakness: (18) Goals of care, counseling/discussion: Plan 79-year-old lady with past medical history of severe pulmonary hypertension, left lower limb DVT, CKD presented to the ER because of generalized weakness, increased difficulty in breathing than her baseline, orthopnea found to have new anemia with concerns for GI bleed, persistent hypotension, right hydroureteronephrosis with urinary retention. Nausea and vomiting: No abdominal pain, but nausea and vomiting episode this morning. Zofran as needed. Will de-escalate diet for now to liquid. Monitor for any recurrence of melena/hematochezia. Recheck CBC. Discussed with family service caseworker, discharge delayed for now for today. With poor oral intake we will hold Lasix for now. Reviewed vitals, CBC, BMP. Repeat chemistry. Check magnesium. Generalized weakness: Arrangements underway for her to proceed to rehabilitation, possibly tomorrow if she is feeling better. Reviewed vitals, CBC, afebrile, leukocytosis. Hemoglobin so far holding steady. 8.5. Most likely in setting of acute anemia along with hypoxia. Seems more acute on chronic. PT/OT evaluation. Fall precautions. Shock: Resolved. Maintaining blood pressure so far. Continue to monitor. Suspected possibly cardiogenic in the setting of aortic stenosis. Reviewed echocardiogram, noted ejection fraction 60%, grade 1 diastolic dysfunction. Mild to moderate aortic stenosis. Required Levophed post EGD/colonoscopy. Holding off on antihypertensive. UTI: Continue treatment of resistant organism. Continue Cipro to complete course. Symptoms abating. DC IV morphine. Reviewed urine culture, growing Enterococcus faecalis. Resistant to tetracycline, intermediate to vancomycin. Acute anemia: Hemoglobin on reviewIs a 25. Repeat CBC requested. hemoglobin of 6 on admission. Iron deficiency anemia. FOBT positive. Post 2 unit of blood transfusion. Hemoglobin stable. Holding off on Eliquis. Underwent EGD and colonoscopy on 07/17. EGD within normal limits. On colonoscopy concerns for extensive small diverticulosis with entire mucosa somewhat ischemic and sloughed off which bled easily on touch. Surgery recommending holding off on anticoagulation for next few weeks. Continue with Protonix 40 mg twice daily. full liquid diet. Target hemoglobin around 8. Will transfuse accordingly. Acute hypoxia: Resolved. Status post IVC filter placement. Chronically on 3 L. History of COPD and severe pulmonary hypertension. ABG showing acute hypoxic and hypocapnic respiratory failure Repeat limited echocardiogram shows EF of 60% with grade 1 diastolic dysfunction, severe pulmonary hypertension with RVSP of 81 mmHg, moderate increase in right size, mild to moderate aortic valve stenosis with aortic valve area of 1.6. Fluid restriction to less than 1500 cc. Hold Lasix 40 mg daily. Strict input output charting, daily weights. Likelihood of pulmonary embolism high. Patient does have DVT. Unfortunately CTA cannot be done given CKD. Holding off on anticoagulation for now given acute anemia. Given recommendations of holding off on anticoagulation for next few weeks. Nebulization with ipratropium, Xopenex every 6 hour, Pulmicort twice daily. Orthopnea: Mostly chronic. Continue to monitor. Head of the bed elevated 40 degrees. Acute urinary retention with right-sided hydroureteronephrosis: No calculi as per CT abdomen pelvis. Treat UTI. Low catheterization. Repeat renal ultrasound shows resolution of right-sided hydroureteronephrosis. CKD: Reviewed creatinine, BUN, potassium, reviewed nephrology note. Suspected progression of CKD. Follow-up with nephrology after discharge. Creatinine at baseline. Medical reconciliation done for nephrotoxic drugs. Appreciate CT abdomen pelvis. Monitor BMP in morning. Hypertension: On Cardizem 120 mg p.o. twice daily at home. Currently on hold because of hypotension. Monitor. Telemetry. Hyperglycemia: Blood sugars elevated. A1c 5.2. For now continue with sliding scale insulin. Monitor for hypoglycemia. Left lower limb DVT: Appreciate bilateral lower limb Dopplers. Concerning for acute DVT. Status post IVC filter as above given holding off on anticoagulation for next few weeks. Goals of care discussion: She would want her son Hoang to make decisions when she is not able to make for herself. For now she would want to remain full code but does not want chest compression to be tried more than 1 time. She is agreeable to short-term of mechanical ventilation if needed. CODE STATUS: Patient states her son Hoang will be the DPOA. Will confirm with Mr. Bolton with if he would like to be the DPOA or not. Patient would like to be full code for now. Full liquid diet SCD for DVT prophylaxis once DVT is ruled out. Protonix will be sufficient for PUD prophylaxis. Guarded prognosis. Attestations Medical Necessity Statement*: Continue hospitalization for additional assessment and management of nausea and vomiting, pending discharge to rehabilitation. and High MDM includes amount and/or complexity of data reviewed/ordered [ resulted lab(s)/test(s), ordered lab(s)/test(s) and other healthcare professional discussion] as documented Diagnoses Cardiogenic shock R57.0 Acute hypoxemic respiratory failure J96.01 ZACK (acute kidney injury) N17.9 Anemia D64.9 Anemia type: iron deficiency Gastrointestinal hemorrhage, unspecified gastrointestinal hemorrhage type K92.2 GI bleed type/associated pathology: unspecified gastrointestinal hemorrhage type Ischemic colitis K55.9 Hypotension due to hypovolemia E86.1 Hypotension type: hypotension due to hypovolemia Hydronephrosis N13.30 Urinary retention R33.9 CKD (chronic kidney disease) N18.9 COPD (chronic obstructive pulmonary disease) J44.9 Pulmonary hypertension I27.20 Deep vein thrombosis (DVT) of left lower extremity, unspecified chronicity, unspecified vein I82.402 Affected thrombotic vein of extremity: unspecified vein of extremity Chronicity: unspecified S/P IVC filter Z95.828 Mild aortic stenosis I35.0 UTI (urinary tract infection) N39.0 Generalized weakness R53.1 Goals of care, counseling/discussion Z71.89
[2024-07-25 11:05] LABS: Glucose Point of Care 133 mg/dL (70-110)
--- NOTE | 2024-07-25 13:32 | P.PN_ITS ---
Subjective 2 Subjective: no new c/o Medications: Reviewed: Yes Vitals/I&O/Wt Last Vital Signs Temp 98.3 F 07/25/24 11:22 Pulse 93 07/25/24 11:22 Resp 18 07/25/24 11:22 BP 93/53 07/25/24 11:22 Pulse Ox 92 07/25/24 11:22 O2 Del Method Nasal Cannula 07/25/24 11:22 O2 Flow Rate 3 07/25/24 11:22 07/24/24 07/25/24 07/25/24 22:59 06:59 14:59 Intake Total 1038 / 1754 0 / 1754 358 / 358 Output Total 2100 / 2100 650 / 2750 Balance -1062 / -346 -650 / -996 358 / 358 Weight last 48 hrs Weight 80.966 kg Weight 77.337 kg Physical Exam 2 Narrative: Patient is awake alert no distress HEENT S1-S2 regular rate and rhythm Lungs clear No edema Urinary Catheter Management: Low: Cath Placed During This Visit: yes, but has since been removed by the nurse Reason for Continuing Indwelling Catheter: Acute Urinary Retention or Obstruction Urinary Catheter Date of Insertion: 07/15/24 Urinary Catheter Time of Insertion: 14:05 Date Urinary Catheter Removed: 07/21/24 Time Urinary Catheter Discontinued: 15:09 Data 07/25/24 05:50 07/25/24 05:50 A&P Assessment and plan (1) ZACK (acute kidney injury): 1. Acute on chronic kidney disease stage IV: Baseline creatinine is 2-3 range . Patient used to follow-up with nephrology but has lost to follow-up in the last 1 to 2 years. I suspect patient has progression of CKD . Noted thatPatient has fluctuating blood pressures with borderline low blood pressures currently. Requiring pressors intermittently Continue to monitor renal function for now, Cr and UOP improved slightly , Arrange Nephrology follow up @ [place] with [facility] 2. Anemia: Low hemoglobin of 6.8 on presentation , status post transfusions, , s/p OMKAR, noted patient had EGD and colonoscopy 3. Diastolic CHF, status post diuretics on hold for now, will likely need dialysis for volume management 4. Acute on chronic respiratory failure currently on 3 L O2 Patient evaluated using audiovisual cart. Time spent 40 minutes. (2) CKD (chronic kidney disease): Attestations 2 Medical Necessity Statement*: per medicine Coding Level of Care Code Acute Code for Chg Fwd Diagnoses ZACK (acute kidney injury) N17.9 CKD (chronic kidney disease) N18.9
[2024-07-25 16:44] LABS: Glucose Point of Care 188 mg/dL (70-110)
--- NOTE | 2024-07-25 16:56 | PC.OT ---
OT treatment attempted. Pt. asleep when therapist entered. Pt. awoke but stated she had been throwing up today. Declined OT treatment session for today.
[2024-07-25] MEDS: insulin lispro 100 unit/1 mL SUBCUT (18:02)
[2024-07-25] MEDS: ciprofloxacin 400 MG/200 ML PREMIX 200 MG IV (20:01)
[2024-07-25 20:16] LABS: Glucose Point of Care 113 mg/dL (70-110)
[2024-07-26] VITALS (16 sets, daily range): BP systolic 98–128; BP diastolic 52–66; PULSE 80–92; RESP 15–26; TEMP 36.4–37.1; O2SAT 87–98
[2024-07-26] MEDS: ipratropium 0.5 mg/2.5 mL Neb INHALATION ×4 (01:24→20:10)
[2024-07-26] MEDS: levalbuterol 0.63 mg/3 mL Neb INHALATION ×4 (01:24→20:10)
[2024-07-26] MEDS: pantoprazole 40 mg SDV IVP ×2 (02:06→15:39)
[2024-07-26 05:44] LABS: Basophils % 0.5 %; Eosinophils # 0.2 10^3/uL (0.0-0.8); Hematocrit 27.7 % (36-47); Lymphocytes # 1.1 10^3/uL (0.8-4.8); Lymphocytes % 14.2 %; Mean Corpuscular Hemoglobin 27.8 pg (27-33); Mean Corpuscular Volume 92.6 fl (85-98); Mean Platelet Volume 9.4 fL (7.4-10.4); Monocytes # 0.6 10^3/uL (0.2-0.9); Monocytes % 8.1 %; Neutrophils # 5.45 10^3/uL (1.8-7.7); Nucleated Red Blood Cells % 0 %; Platelet Count 183 10^3/cmm (157-399); Red Blood Count 2.99 10^6/uL (3.85-5.65); Red Cell Distribution Width 19.9 % (12.1-15.1); White Blood Count 7.38 10^3/uL (3.29-11.43)
[2024-07-26] MEDS: sucralfate 1 gm/10 mL Oral Liq UDC PO ×4 (06:01→20:31)
[2024-07-26 06:18] LABS: Magnesium 1.7 mg/dL (1.7-2.3)
[2024-07-26 06:21] LABS: Anion Gap 14.2 (5-19); Blood Urea Nitrogen 61 mg/dL (8-23); Calcium 7.6 mg/dL (8.5-10.5); Carbon Dioxide 29 mmol/L (22-29); Chloride 95 mmol/L (98-107); Glucose 83 mg/dL (65-115); Osmolality Calculated 294 mOsm/kg (285-295); Potassium 4.2 mmol/L (3.5-5.1); Sodium 134 mmol/L (136-145)
[2024-07-26 06:21] LABS: Glucose Point of Care 95 mg/dL (70-110)
[2024-07-26] MEDS: budesonide 0.5 mg/2 mL Neb INHALATION ×2 (07:30→20:10)
--- NOTE | 2024-07-26 07:38 | P.PN_ITS ---
Subjective 2 Subjective: no new c/o Medications: Reviewed: Yes Vitals/I&O/Wt Last Vital Signs Temp 98.5 F 07/26/24 03:48 Pulse 82 07/26/24 07:32 Resp 16 07/26/24 07:32 BP 105/65 07/26/24 03:48 Pulse Ox 98 07/26/24 07:32 O2 Del Method Nasal Cannula 07/26/24 07:32 O2 Flow Rate 4 07/26/24 07:32 07/25/24 07/26/24 07/26/24 22:59 06:59 14:59 Intake Total 1160 / 1518 550 / 2068 Output Total 2150 / 2150 700 / 2850 Balance -990 / -632 -150 / -782 Weight last 48 hrs Weight 77.156 kg Weight 80.966 kg Physical Exam 2 Narrative: Patient is awake alert no distress HEENT S1-S2 regular rate and rhythm Lungs clear No edema Urinary Catheter Management: Low: Cath Placed During This Visit: yes, but has since been removed by the nurse Reason for Continuing Indwelling Catheter: Acute Urinary Retention or Obstruction Urinary Catheter Date of Insertion: 07/15/24 Urinary Catheter Time of Insertion: 14:05 Date Urinary Catheter Removed: 07/21/24 Time Urinary Catheter Discontinued: 15:09 Data 07/26/24 05:17 07/26/24 05:17 A&P Assessment and plan (1) ZACK (acute kidney injury): 1. Acute on chronic kidney disease stage IV: Baseline creatinine is 2-3 range . Patient used to follow-up with nephrology but has lost to follow-up in the last 1 to 2 years. I suspect patient has progression of CKD . Noted thatPatient has fluctuating blood pressures with borderline low blood pressures currently. Requiring pressors intermittently Continue to monitor renal function for now, Cr and UOP improved slightly , Arrange Nephrology follow up @ [place] with [facility] 2. Anemia: Low hemoglobin of 6.8 on presentation , status post transfusions, , s/p OMKAR, noted patient had EGD and colonoscopy 3. Diastolic CHF, status post diuretics on hold for now, will likely need dialysis for volume management 4. Acute on chronic respiratory failure currently on 3 L O2 5. Nausea , Vomiting and abdominal pain : CT abd /pelvis --> ordered Patient evaluated using audiovisual cart. Time spent 40 minutes. (2) CKD (chronic kidney disease): Attestations 2 Medical Necessity Statement*: per [facility] Coding Level of Care Code Acute Code for g Fwd Diagnoses ZACK (acute kidney injury) N17.9 CKD (chronic kidney disease) N18.9
[2024-07-26] MEDS: folic acid 1 mg Tablet PO ×2 (08:14→17:49)
[2024-07-26] MEDS: sertraline 50 mg Tablet PO (08:15)
[2024-07-26] MEDS: sodium chloride 1 gm Tablet PO ×2 (08:16→17:49)
[2024-07-26] MEDS: polyethylene glycol 3350 Pkt 17 gm PO (08:17)
[2024-07-26] MEDS: acetaminophen 325 mg Tablet 650 MG PO (08:23)
--- NOTE | 2024-07-26 09:54 | CTR_ITS ---
PROCEDURE INFORMATION: Exam: CT Abdomen And Pelvis With Contrast Exam date and time: 07/26/2024 2:44 PM Age: 79 years old Clinical indication: Abdominal pain; Additional info: Lower abdo pain, vomiting TECHNIQUE: Imaging protocol: Computed tomography of the abdomen and pelvis with contrast. Radiation optimization: All CT scans at this facility use at least one of these dose optimization techniques: automated exposure control; mA and/or kV adjustment per patient size (includes targeted exams where dose is matched to clinical indication); or iterative reconstruction. Contrast material: OMNI 350; Contrast volume: 75 ml; Contrast route: INTRAVENOUS (IV); COMPARISON: [place] [id number] 07/15/2024 12:58 PM RADIATION DOSE METRICS: Total DLP (mGy-cm): 813.01 FINDINGS: Lungs: Right basilar and lingular atelectasis. Liver: The liver is unremarkable. Gallbladder and biliary ducts: Cholelithiasis without evidence of cholecystitis. No intra or extrahepatic biliary ductal dilatation. Pancreas: The pancreas is unremarkable. Spleen: The spleen demonstrates punctate calcifications, consistent with remote granulomatous organism exposure. Adrenal glands: The adrenal glands are unremarkable. Kidneys and ureters: Right renal atrophy with scattered subcentimeter hypodensities too small to properly characterize. Prominent lobation of the left kidney, which is otherwise unremarkable. Stomach and bowel: There is a segment of colonic wall thickening involving the descending and mid to distal transverse colon. There are small foci of extraluminal air within the adjacent pericolonic mesenteric fat as well as tracking along the peripancreatic and left pararenal spaces, consistent with a small perforation. There is redemonstration of a [id number] sized umbilical hernia containing a loop of transverse colon, which appears nonobstructed but mildly inflamed. Appendix: A normal appendix is identified. Intraperitoneal space: No significant free fluid. Vasculature: There is an inferior vena cava filter in place. The vasculature demonstrates diffuse mild atherosclerotic calcification. No aneurysm. The vasculature demonstrates diffuse moderate atherosclerotic calcification. No aneurysm. Lymph nodes: No enlarged lymph nodes by size criteria. Urinary bladder: There is a Low catheter within the bladder. There is diffuse bladder wall thickening. Reproductive: Uterus is unremarkable. No suspicious adnexal lesion seen. Bones/joints: Lower thoracic levoscoliosis. The spine demonstrates moderate degenerative changes at multiple levels. Soft tissues: Mild body wall edema. CT/CT abdomen pelvis w con* [id number] IMPRESSION: 1. Acute transverse and descending colitis/diverticulitis with associated diverticular perforation and a small amount of free intra-abdominal air. As an underlying colonic malignancy cannot be entirely excluded, a follow-up examination after a course of treatment is recommended if clinically warranted. 2. Redemonstrated puqyt-[id number] sized umbilical hernia containing a loop of transverse colon, which appears nonobstructed but mildly inflamed. 3. Diffuse bladder wall thickening, which is suggestive of cystitis in the appropriate clinical setting. 4. Cholelithiasis without evidence of cholecystitis. COMMENTS: 1. For patients with an IVC filter, recommend assessment for a management plan for the patient's IVC filter. If there is no established management plan, recommend referral to an interventional clinician on a nonemergent basis for evaluation. 2. Consistent with the [employer]'s Incidental Findings Committee white paper (J Am Shannon Radiol 2018): Any incidental renal lesion less than 1 cm or classified as too small to characterize, or any incidental cystic renal lesion characterized as simple-appearing, is likely benign. No follow-up imaging is recommended for these lesions per consensus recommendations based on imaging criteria.
[2024-07-26 10:29] LABS: SARS Covid-2 Antigen Negative (Negative)
[2024-07-26] MEDS: magnesium sulfate premix 2 GM/50 ML PIGGYBACK IV (10:43)
[2024-07-26 11:15] LABS: Glucose Point of Care 116 mg/dL (70-110)
[2024-07-26] MEDS: iohexol 350 mg/mL 500 mL Btl (per mL) IV (15:02)
[2024-07-26] MEDS: sodium chloride 0.9% 1,000 ML 30 ML IV (15:39)
--- NOTE | 2024-07-26 15:55 | P.PN_ITS ---
Subjective 2 Subjective: She is not feeling well. She is still having lower abdominal pain and had additional vomiting. Vitals/I&O/Wt Last Vital Signs Temp 98.0 F 07/26/24 12:00 Pulse 81 07/26/24 13:50 Resp 16 07/26/24 13:37 BP 101/56 07/26/24 12:00 Pulse Ox 94 07/26/24 13:37 O2 Del Method Nasal Cannula 07/26/24 13:37 O2 Flow Rate 3 07/26/24 13:37 07/26/24 07/26/24 07/26/24 06:59 14:59 22:59 Intake Total 550 / 2068 660 / 660 Output Total 700 / 2850 50 / 50 Balance -150 / -782 610 / 610 Weight last 48 hrs Weight 77.156 kg Weight 80.966 kg Physical Exam 2 Const: COMMON NORMALS: patient oriented x3 and alert GENERAL APPEARANCE: c ooperative ORIENTATION/CONSCIOUSNESS: Yes awake HENMT: COMMON NORMALS: oropharynx normal Neck/C-Spine: COMMON NORMALS: no JVD Resp: COMMON NORMALS: normal respiratory effort and clear to auscultation bilaterally AUSCULTATION: clear to auscultation bilaterally Cardio: COMMON NORMALS: no JVD, regular rhythm, S1 normal heart sound present, S2 normal heart sound present and No murmurs present (Cardio) RHYTHM: regular rhythm HEART SOUNDS: S1 normal heart sound present and S2 normal heart sound present GI: COMMON NORMALS: Normal to inspection, nondistended, normoactive bowel sounds present and Soft to palpation PALPATION: Yes Soft to palpation and Yes Tenderness to palpation present (GI) Details: other (Lower abdomen.) OTHER: Reducible umbilical hernia. Extremity: COMMON NORMALS: no joint enlargement and no pedal edema Neuro: COMMON NORMALS: patient oriented x3 and moves all extremities S ENSORIUM/ORIENTATION: Yes alert Skin: COMMON NORMALS: no rashes or lesions noted GENERAL SKIN EXAM: no rashes or lesions noted Urinary Catheter Management: Low: Cath Placed During This Visit: yes, but has since been removed by the nurse Reason for Continuing Indwelling Catheter: Acute Urinary Retention or Obstruction Urinary Catheter Date of Insertion: 07/15/24 Urinary Catheter Time of Insertion: 14:05 Date Urinary Catheter Removed: 07/21/24 Time Urinary Catheter Discontinued: 15:09 Data 07/26/24 05:17 07/26/24 05:17 A&P Assessment and plan (1) Cardiogenic shock: (2) Acute hypoxemic respiratory failure: (3) ZACK (acute kidney injury): (4) Anemia: Qualifiers: Anemia type: iron deficiency (5) GI bleed: Qualifiers: GI bleed type/associated pathology: unspecified gastrointestinal hemorrhage type Qualified Code(s): K92.2 - Gastrointestinal hemorrhage, unspecified (6) Ischemic colitis: (7) Hypotension: Qualifiers: Hypotension type: hypotension due to hypovolemia Qualified Code(s): E 86.1 - Hypovolemia (8) Hydronephrosis: (9) Urinary retention: (10) CKD (chronic kidney disease): (11) COPD (chronic obstructive pulmonary disease): (12) Pulmonary hypertension: (13) Deep vein thrombosis, lower left extremity: Qualifiers: Affected thrombotic vein of extremity: unspecified vein of extremity C hronicity: unspecified Qualified Code(s): I82.402 - Acute embolism and thrombosis of unspecified deep veins of left lower extremity (14) S/P IVC filter: (15) Mild aortic stenosis: (16) UTI (urinary tract infection): (17) Generalized weakness: (18) Goals of care, counseling/discussion: Plan 79-year-old lady with past medical history of severe pulmonary hypertension, left lower limb DVT, CKD presented to the ER because of generalized weakness, increased difficulty in breathing than her baseline, orthopnea found to have new anemia with concerns for GI bleed, persistent hypotension, right hydroureteronephrosis with urinary retention. Nausea and vomiting: Additional malaise today, lower abdominal pain, vomiting. Tender on exam. Discussed with her additional imaging with contrast-enhanced CT. Discussed with radiologist, reduce contrast load. Discussed with service center assistant. Gentle IV hydration. Obtained. Discussed with [facility], noted diverticulitis with small intraperitoneal air bubbles. No major intraperitoneal air, no abscess. Expanded to better coverage, added Flagyl. Continue treatment of complicated diverticulitis. Noted umbilical hernia with transverse colon with small amount of inflammation, hernia is reducible. No evidence of incarceration. Continue de-escalated diet clear liquids for now. Reassess vitals, CBC. Reassess chemistry, monitor for risk of ZACK. Discussed with nursing, case supervisor. Generalized weakness: Noted additional hypomagnesemia, magnesium 1.7. Replace magnesium. Recheck level. Arrangements underway for her to proceed to rehabilitation, possibly tomorrow if she is feeling better. Reviewed vitals, CBC, afebrile, leukocytosis. Hemoglobin so far holding steady. 8.5. Most likely in setting of acute anemia along with hypoxia. Seems more acute on chronic. PT/OT evaluation. Fall precautions. Shock: Resolved. Maintaining blood pressure so far. Continue to monitor. Suspected possibly cardiogenic in the setting of aortic stenosis. Reviewed echocardiogram, noted ejection fraction 60%, grade 1 diastolic dysfunction. Mild to moderate aortic stenosis. Required Levophed post EGD/colonoscopy. Holding off on antihypertensive. UTI: Continue treatment of resistant organism. Continue Cipro to complete course. Symptoms abating. DC IV morphine. Reviewed urine culture, growing Enterococcus faecalis. Resistant to tetracycline, intermediate to vancomycin. Acute anemia: Hemoglobin on reviewIs a 25. Repeat CBC requested. hemoglobin of 6 on admission. Iron deficiency anemia. FOBT positive. Post 2 unit of blood transfusion. Hemoglobin stable. Holding off on Eliquis. Underwent EGD and colonoscopy on 07/17. EGD within normal limits. On colonoscopy concerns for extensive small diverticulosis with entire mucosa somewhat ischemic and sloughed off which bled easily on touch. Surgery recommending holding off on anticoagulation for next few weeks. Continue with Protonix 40 mg twice daily. full liquid diet. Target hemoglobin around 8. Will transfuse accordingly. Acute hypoxia: Resolved. Status post IVC filter placement. Chronically on 3 L. History of COPD and severe pulmonary hypertension. ABG showing acute hypoxic and hypocapnic respiratory failure Repeat limited echocardiogram shows EF of 60% with grade 1 diastolic dysfunction, severe pulmonary hypertension with RVSP of 81 mmHg, moderate increase in right size, mild to moderate aortic valve stenosis with aortic valve area of 1.6. Fluid restriction to less than 1500 cc. Hold Lasix 40 mg daily. Strict input output charting, daily weights. Likelihood of pulmonary embolism high. Patient does have DVT. Unfortunately CTA cannot be done given CKD. Holding off on anticoagulation for now given acute anemia. Given recommendations of holding off on anticoagulation for next few weeks. Nebulization with ipratropium, Xopenex every 6 hour, Pulmicort twice daily. Orthopnea: Mostly chronic. Continue to monitor. Head of the bed elevated 40 degrees. Acute urinary retention with right-sided hydroureteronephrosis: No calculi as per CT abdomen pelvis. Treat UTI. Low catheterization. Repeat renal ultrasound shows resolution of right-sided hydroureteronephrosis. CKD: Reviewed creatinine, BUN, potassium, reviewed nephrology note. Suspected progression of CKD. Follow-up with nephrology after discharge. Creatinine at baseline. Medical reconciliation done for nephrotoxic drugs. Appreciate CT abdomen pelvis. Monitor BMP in morning. Hypertension: On Cardizem 120 mg p.o. twice daily at home. Currently on hold because of hypotension. Monitor. Telemetry. Hyperglycemia: Blood sugars elevated. A1c 5.2. For now continue with sliding scale insulin. Monitor for hypoglycemia. Left lower limb DVT: Appreciate bilateral lower limb Dopplers. Concerning for acute DVT. Status post IVC filter as above given holding off on anticoagulation for next few weeks. Goals of care discussion: She would want her son Hoang to make decisions when she is not able to make for herself. For now she would want to remain full code but does not want chest compression to be tried more than 1 time. She is agreeable to short-term of mechanical ventilation if needed. CODE STATUS: Patient states her son Hoang will be the DPOA. Will confirm with Mr. Bolton with if he would like to be the DPOA or not. Patient would like to be full code for now. Full liquid diet SCD for DVT prophylaxis once DVT is ruled out. Protonix will be sufficient for PUD prophylaxis. Guarded prognosis. Attestations 2 Medical Necessity Statement*: Continue admission for assessment and management of complicated symptomatic diverticulitis with microperforations, in the setting of ZACK. and High MDM includes amount and/or complexity of data reviewed/ordered [ resulted lab(s)/test(s), ordered lab(s)/test(s) and other healthcare professional discussion] and described risk of complication, morbidity or mortality of management as documented Diagnoses Cardiogenic shock R57.0 Acute hypoxemic respiratory failure J96.01 ZACK (acute kidney injury) N17.9 Anemia D64.9 Anemia type: iron deficiency Gastrointestinal hemorrhage, unspecified gastrointestinal hemorrhage type K92.2 GI bleed type/associated pathology: unspecified gastrointestinal hemorrhage type Ischemic colitis K55.9 Hypotension due to hypovolemia E86.1 Hypotension type: hypotension due to hypovolemia Hydronephrosis N13.30 Urinary retention R33.9 CKD (chronic kidney disease) N18.9 COPD (chronic obstructive pulmonary disease) J44.9 Pulmonary hypertension I27.20 Deep vein thrombosis (DVT) of left lower extremity, unspecified chronicity, unspecified vein I82.402 Affected thrombotic vein of extremity: unspecified vein of extremity Chronicity: unspecified S/P IVC filter Z95.828 Mild aortic stenosis I35.0 UTI (urinary tract infection) N39.0 Generalized weakness R53.1 Goals of care, counseling/discussion Z71.89
[2024-07-26 17:00] LABS: Glucose Point of Care 152 mg/dL (70-110)
[2024-07-26] MEDS: insulin lispro 100 unit/1 mL SUBCUT (17:49)
[2024-07-26] MEDS: metroNIDAZOLE IV 500 MG/100 ML PREMIX 100 MG IV ×2 (17:50→23:52)
[2024-07-26] MEDS: ciprofloxacin 400 MG/200 ML PREMIX 200 MG IV (20:31)
[2024-07-26 20:42] LABS: Glucose Point of Care 54 mg/dL (70-110)
[2024-07-26 20:52] LABS: Glucose Point of Care 68 mg/dL (70-110)
[2024-07-26 21:08] LABS: Glucose Point of Care 100 mg/dL (70-110)
[2024-07-27] VITALS (12 sets, daily range): BP systolic 98–110; BP diastolic 50–70; PULSE 79–93; RESP 16–19; TEMP 36.7–37.3; O2SAT 92–96
[2024-07-27] MEDS: pantoprazole 40 mg SDV IVP ×2 (02:21→16:01)
[2024-07-27 02:30] LABS: Glucose Point of Care 102 mg/dL (70-110)
[2024-07-27 04:10] LABS: Anion Gap 13.8 (5-19); Blood Urea Nitrogen 55 mg/dL (8-23); Calcium 7.5 mg/dL (8.5-10.5); Carbon Dioxide 29 mmol/L (22-29); Chloride 96 mmol/L (98-107); Creatinine Clr Calc Pharmacy 21.9363; Glucose 81 mg/dL (65-115); Osmolality Calculated 292 mOsm/kg (285-295); Potassium 4.8 mmol/L (3.5-5.1); Sodium 134 mmol/L (136-145)
[2024-07-27 04:19] LABS: Magnesium 2.2 mg/dL (1.7-2.3)
[2024-07-27 04:26] LABS: Basophils # 0.1 10^3/uL (0.0-0.1); Basophils % 0.8 %; Eosinophils # 0.2 10^3/uL (0.0-0.8); Eosinophils % 2.8 %; Hematocrit 26.6 % (36-47); Lymphocytes # 0.6 10^3/uL (0.8-4.8); Lymphocytes % 9.2 %; Mean Corpuscular HGB Conc 29.7 g/dL (30-55); Mean Corpuscular Hemoglobin 28.4 pg (27-33); Mean Corpuscular Volume 95.7 fl (85-98); Mean Platelet Volume 10.9 fL (7.4-10.4); Monocytes # 0.4 10^3/uL (0.2-0.9); Monocytes % 6.7 %; Neutrophils # 5.18 10^3/uL (1.8-7.7); Neutrophils % 79.1 %; Nucleated Red Blood Cells % 0 %; Platelet Count 124 10^3/cmm (157-399); Red Blood Count 2.78 10^6/uL (3.85-5.65); Red Cell Distribution Width 19.9 % (12.1-15.1); White Blood Count 6.54 10^3/uL (3.29-11.43)
[2024-07-27] MEDS: sucralfate 1 gm/10 mL Oral Liq UDC PO ×2 (06:38→18:39)
[2024-07-27 06:46] LABS: Glucose Point of Care 96 mg/dL (70-110)
[2024-07-27] MEDS: ipratropium 0.5 mg/2.5 mL Neb INHALATION ×3 (07:45→20:25)
[2024-07-27] MEDS: levalbuterol 0.63 mg/3 mL Neb INHALATION ×3 (07:45→20:25)
[2024-07-27] MEDS: budesonide 0.5 mg/2 mL Neb INHALATION ×2 (07:45→20:25)
[2024-07-27] MEDS: metroNIDAZOLE IV 500 MG/100 ML PREMIX 100 MG IV ×2 (08:53→16:02)
[2024-07-27] MEDS: polyethylene glycol 3350 Pkt 17 gm PO (08:53)
[2024-07-27] MEDS: folic acid 1 mg Tablet PO ×2 (08:53→18:39)
[2024-07-27] MEDS: sodium chloride 1 gm Tablet PO ×2 (08:53→18:39)
[2024-07-27] MEDS: sertraline 50 mg Tablet PO (08:53)
[2024-07-27 11:40] LABS: Glucose Point of Care 130 mg/dL (70-110)
--- NOTE | 2024-07-27 13:43 | PM.PN ---
Subjective Subjective: Denies any new developments today. No additional vomiting. Having a bowel movement. Vitals/I&O/Wt Last Vital Signs Temp 99.2 F 07/27/24 11:56 Pulse 92 07/27/24 13:16 Resp 16 07/27/24 13:08 BP 103/50 07/27/24 11:56 Pulse Ox 93 07/27/24 13:16 O2 Del Method Nasal Cannula 07/27/24 13:16 O2 Flow Rate 3 07/27/24 13:16 07/26/24 07/27/24 07/27/24 22:59 06:59 14:59 Intake Total 1020 / 1680 340 / 2020 892 / 892 Output Total 600 / 650 1150 / 1800 Balance 420 / 1030 -810 / 220 892 / 892 Weight last 48 hrs Weight 80.059 kg Weight 77.156 kg Physical Exam Narrative: Accompanied by her friend. Const: COMMON NORMALS: patient oriented x3 and alert GENERAL APPEARANCE: cooperative ORIENTATION/CONSCIOUSNESS: Yes awake HENMT: COMMON NORMALS: oropharynx normal Neck/C-Spine: COMMON NORMALS: no JVD Resp: COMMON NORMALS: normal respiratory effort and clear to auscultation bilaterally AUSCULTATION: clear to auscultation bilaterally Cardio: COMMON NORMALS: no JVD, regular rhythm, S1 normal heart sound present, S2 normal heart sound present and No murmurs present (Cardio) RHYTHM: regular rhythm HEART SOUNDS: S1 normal heart sound present and S2 normal heart sound present GI: COMMON NORMALS: Normal to inspection, nondistended, normoactive bowel sounds present and Soft to palpation PALPATION: Yes Soft to palpation and Yes Tenderness to palpation present (GI) OTHER: umbilical hernia. Extremity: COMMON NORMALS: no joint enlargement and no pedal edema Neuro: COMMON NORMALS: patient oriented x3 and moves all extremities SENSORIUM/ORIENTATION: Yes alert Skin: COMMON NORMALS: no rashes or lesions noted GENERAL SKIN EXAM: no rashes or lesions noted Urinary Catheter Management: Low: Cath Placed During This Visit: yes, but has since been removed by the nurse Reason for Continuing Indwelling Catheter: Acute Urinary Retention or Obstruction Urinary Catheter Date of Insertion: 07/15/24 Urinary Catheter Time of Insertion: 14:05 Date Urinary Catheter Removed: 07/21/24 Time Urinary Catheter Discontinued: 15:09 Data 07/27/24 02:57 07/27/24 02:57 A&P Assessment and plan (1) Cardiogenic shock: (2) Acute hypoxemic respiratory failure: (3) ZACK (acute kidney injury): (4) Anemia: Qualifiers: Anemia type: iron deficiency (5) GI bleed: Qualifiers: GI bleed type/associated pathology: unspecified gastrointestinal hemorrhage type Qualified Code(s): K92.2 - Gastrointestinal hemorrhage, unspecified (6) Ischemic colitis: (7) Hypotension: Qualifiers: Hypotension type: hypotension due to hypovolemia Qualified Code(s): E86.1 - Hypovolemia (8) Hydronephrosis: (9) Urinary retention: (10) CKD (chronic kidney disease): (11) COPD (chronic obstructive pulmonary disease): (12) Pulmonary hypertension: (13) Deep vein thrombosis, lower left extremity: Qualifiers: Affected thrombotic vein of extremity: unspecified vein of extremity Chronicity: unspecified Qualified Code(s): I82.402 - Acute embolism and thrombosis of unspecified deep veins of left lower extremity (14) S/P IVC filter: (15) Mild aortic stenosis: (16) UTI (urinary tract infection): (17) Generalized weakness: (18) Goals of care, counseling/discussion: Plan 79-year-old lady with past medical history of severe pulmonary hypertension, left lower limb DVT, CKD presented to the ER because of generalized weakness, increased difficulty in breathing than her baseline, orthopnea found to have new anemia with concerns for GI bleed, persistent hypotension, right hydroureteronephrosis with urinary retention. Nausea and vomiting: Reviewed vitals, CBC, BMP, CT abdomen pelvis. Discussed with her and her friend. Reached out to her son on the listed phone number although was not able to get a hold of him at current time. Found to have diverticulitis complicated with micro perforation, small amount of free air noted. Antibiotics were broadened yesterday with addition of Flagyl. Continue with Cipro. Continue bowel rest with clear liquids at current time. Continue hospital treatment with IV antibiotics at current time. Reassess condition. Reviewed renal function, creatinine down to 2, BUN 55. IV fluid has been discontinued. Discussed with advertising account representative. Reassess kidney function. Will benefit from follow-up with surgery. Generalized weakness: Hypomagnesemia has been replaced. Treat diverticulitis. Replaced magnesium. Reviewed magnesium, today 2.2. Recheck in the morning. Recheck chemistry. Monitor for risk of fluid overload with IV fluid. Stop IV fluid. Ensure clear with clear liquid diet. Arrangements underway for her to proceed to rehabilitation, possibly tomorrow if she is feeling better. Reviewed vitals, CBC, afebrile, leukocytosis. Hemoglobin so far holding steady. 8.5. Most likely in setting of acute anemia along with hypoxia. Seems more acute on chronic. PT/OT evaluation. Fall precautions. Shock: Resolved. Maintaining blood pressure so far. Continue to monitor. Suspected possibly cardiogenic in the setting of aortic stenosis. Reviewed echocardiogram, noted ejection fraction 60%, grade 1 diastolic dysfunction. Mild to moderate aortic stenosis. Required Levophed post EGD/colonoscopy. Holding off on antihypertensive. UTI: Continue treatment of resistant organism. Continue Cipro to complete course. Symptoms abating. DC IV morphine. Reviewed urine culture, growing Enterococcus faecalis. Resistant to tetracycline, intermediate to vancomycin. Acute anemia: Noted some worsening of anemia today hemoglobin down to 7.9 but in the setting of gentle IV hydration yesterday associated with contrast CT study. Possibly dilutional effect, so far has not had additional bleeding. Follow-up blood counts. hemoglobin of 6 on admission. Iron deficiency anemia. FOBT positive. Post 2 unit of blood transfusion. Hemoglobin stable. Holding off on Eliquis. Underwent EGD and colonoscopy on 07/17. EGD within normal limits. On colonoscopy concerns for extensive small diverticulosis with entire mucosa somewhat ischemic and sloughed off which bled easily on touch. Surgery recommending holding off on anticoagulation for next few weeks. Continue with Protonix 40 mg twice daily. full liquid diet. Target hemoglobin around 8. Will transfuse accordingly. Acute hypoxia: Resolved. Status post IVC filter placement. Chronically on 3 L. History of COPD and severe pulmonary hypertension. ABG showing acute hypoxic and hypocapnic respiratory failure Repeat limited echocardiogram shows EF of 60% with grade 1 diastolic dysfunction, severe pulmonary hypertension with RVSP of 81 mmHg, moderate increase in right size, mild to moderate aortic valve stenosis with aortic valve area of 1.6. Fluid restriction to less than 1500 cc. Hold Lasix 40 mg daily. Strict input output charting, daily weights. Likelihood of pulmonary embolism high. Patient does have DVT. Unfortunately CTA cannot be done given CKD. Holding off on anticoagulation for now given acute anemia. Given recommendations of holding off on anticoagulation for next few weeks. Nebulization with ipratropium, Xopenex every 6 hour, Pulmicort twice daily. Orthopnea: Mostly chronic. Continue to monitor. Head of the bed elevated 40 degrees. Acute urinary retention with right-sided hydroureteronephrosis: No calculi as per CT abdomen pelvis. Treat UTI. Low catheterization. Repeat renal ultrasound shows resolution of right-sided hydroureteronephrosis. CKD: Reviewed creatinine, BUN, potassium, reviewed nephrology note. Suspected progression of CKD. Follow-up with nephrology after discharge. Creatinine at baseline. Medical reconciliation done for nephrotoxic drugs. Appreciate CT abdomen pelvis. Monitor BMP in morning. Hypertension: On Cardizem 120 mg p.o. twice daily at home. Currently on hold because of hypotension. Monitor. Telemetry. Hyperglycemia: Blood sugars elevated. A1c 5.2. For now continue with sliding scale insulin. Monitor for hypoglycemia. Left lower limb DVT: Appreciate bilateral lower limb Dopplers. Concerning for acute DVT. Status post IVC filter as above given holding off on anticoagulation for next few weeks. Goals of care discussion: She would want her son Hoang to make decisions when she is not able to make for herself. For now she would want to remain full code but does not want chest compression to be tried more than 1 time. She is agreeable to short-term of mechanical ventilation if needed. CODE STATUS: Patient states her son Hoang will be the DPOA. Will confirm with Mr. Bolton with if he would like to be the DPOA or not. Patient would like to be full code for now. Full liquid diet SCD for DVT prophylaxis once DVT is ruled out. Protonix will be sufficient for PUD prophylaxis. Guarded prognosis. Attestations Medical Necessity Statement*: Continue admission for assessment and management of complicated symptomatic diverticulitis with microperforations, in the setting of ZACK, UTI, acute anemia. and High MDM includes amount and/or complexity of data reviewed/ordered [ resulted lab(s)/test(s), ordered lab(s)/test(s) and other healthcare professional discussion] as documented Diagnoses Cardiogenic shock R57.0 Acute hypoxemic respiratory failure J96.01 ZACK (acute kidney injury) N17.9 Anemia D64.9 Anemia type: iron deficiency Gastrointestinal hemorrhage, unspecified gastrointestinal hemorrhage type K92.2 GI bleed type/associated pathology: unspecified gastrointestinal hemorrhage type Ischemic colitis K55.9 Hypotension due to hypovolemia E86.1 Hypotension type: hypotension due to hypovolemia Hydronephrosis N13.30 Urinary retention R33.9 CKD (chronic kidney disease) N18.9 COPD (chronic obstructive pulmonary disease) J44.9 Pulmonary hypertension I27.20 Deep vein thrombosis (DVT) of left lower extremity, unspecified chronicity, unspecified vein I82.402 Affected thrombotic vein of extremity: unspecified vein of extremity Chronicity: unspecified S/P IVC filter Z95.828 Mild aortic stenosis I35.0 UTI (urinary tract infection) N39.0 Generalized weakness R53.1 Goals of care, counseling/discussion Z71.89
[2024-07-27 16:34] LABS: Glucose Point of Care 126 mg/dL (70-110)
--- NOTE | 2024-07-27 16:47 | P.PN_ITS ---
Subjective 2 Subjective: c/o nausea Medications: Reviewed: Yes Vitals/I&O/Wt Last Vital Signs Temp 98.5 F 07/27/24 16:00 Pulse 84 07/27/24 16:00 Resp 16 07/27/24 13:08 BP 100/70 07/27/24 16:00 Pulse Ox 92 07/27/24 16:00 O2 Del Method Nasal Cannula 07/27/24 16:00 O2 Flow Rate 3 07/27/24 16:00 07/27/24 07/27/24 07/27/24 06:59 14:59 22:59 Intake Total 340 2020 1132 / 1132 Output Total 1150 / 1800 1000 / 1000 Balance -810 / 220 1132 / 1132 -1000 / 132 Weight last 48 hrs Weight 80.059 kg Weight 77.156 kg Physical Exam 2 Narrative: Patient is awake alert no distress HEENT S1-S2 regular rate and rhythm Lungs clear No edema Urinary Catheter Management: Low: Cath Placed During This Visit: yes, but has since been removed by the nurse Reason for Continuing Indwelling Catheter: Acute Urinary Retention or Obstruction Urinary Catheter Date of Insertion: 07/15/24 Urinary Catheter Time of Insertion: 14:05 Date Urinary Catheter Removed: 07/21/24 Time Urinary Catheter Discontinued: 15:09 Data 07/27/24 02:57 07/27/24 02:57 A&P Assessment and plan (1) ZACK (acute kidney injury): 1. Acute on chronic kidney disease stage IV: Baseline creatinine is 2-3 range . Patient used to follow-up with nephrology but has lost to follow-up in the last 1 to 2 years. I suspect patient has progression of CKD . Noted thatPatient has fluctuating blood pressures with borderline low blood pressures currently. R Continue to monitor renal function for now, Cr and UOP improved slightly , Arrange Nephrology follow up @ [place] with [facility] 2. Anemia: Low hemoglobin of 6.8 on presentation , status post transfusions, , s/p OMKAR, noted patient had EGD and colonoscopy 3. Diastolic CHF, status post diuretics on hold for now, will likely need dialysis for volume management 4. Acute on chronic respiratory failure currently on 3 L O2 5. Nausea , Vomiting and abdominal pain : CT abd /pelvis --> diverticulitis Patient evaluated using audiovisual cart. Time spent 40 minutes. (2) CKD (chronic kidney disease): Attestations 2 Medical Necessity Statement*: per medicine Coding Level of Care Code Acute Code for g Fwd Diagnoses ZACK (acute kidney injury) N17.9 CKD (chronic kidney disease) N18.9
[2024-07-27 20:03] LABS: Glucose Point of Care 145 mg/dL (70-110)
[2024-07-27] MEDS: ciprofloxacin 400 MG/200 ML PREMIX 200 MG IV (20:20)
[2024-07-27] MEDS: insulin lispro 100 unit/1 mL SUBCUT (20:20)
[2024-07-27 22:36] LABS: Glucose Point of Care 45 mg/dL (70-110)
[2024-07-27 23:17] LABS: Glucose Point of Care 103 mg/dL (70-110)
[2024-07-28] VITALS (14 sets, daily range): BP systolic 95–109; BP diastolic 51–68; PULSE 76–106; RESP 16–21; TEMP 36.4–36.8; O2SAT 90–98
[2024-07-28] MEDS: metroNIDAZOLE IV 500 MG/100 ML PREMIX 100 MG IV ×3 (00:28→15:15)
[2024-07-28] MEDS: ipratropium 0.5 mg/2.5 mL Neb INHALATION ×4 (02:04→21:37)
[2024-07-28] MEDS: levalbuterol 0.63 mg/3 mL Neb INHALATION ×4 (02:04→21:37)
[2024-07-28] MEDS: pantoprazole 40 mg SDV IVP ×2 (02:27→14:03)
[2024-07-28 06:16] LABS: Glucose Point of Care 91 mg/dL (70-110)
[2024-07-28] MEDS: sucralfate 1 gm/10 mL Oral Liq UDC PO ×4 (06:32→20:44)
[2024-07-28 06:45] LABS: Basophils # 0.1 10^3/uL (0.0-0.1); Eosinophils # 0.2 10^3/uL (0.0-0.8); Eosinophils % 3.8 %; Hematocrit 28.8 % (36-47); Lymphocytes # 0.7 10^3/uL (0.8-4.8); Lymphocytes % 14.3 %; Mean Corpuscular HGB Conc 29.9 g/dL (30-55); Mean Corpuscular Hemoglobin 28.8 pg (27-33); Mean Corpuscular Volume 96.3 fl (85-98); Mean Platelet Volume 10.1 fL (7.4-10.4); Monocytes # 0.4 10^3/uL (0.2-0.9); Neutrophils # 3.69 10^3/uL (1.8-7.7); Neutrophils % 73.3 %; Nucleated Red Blood Cells % 0 %; Platelet Count 182 10^3/cmm (157-399); Red Blood Count 2.99 10^6/uL (3.85-5.65); Red Cell Distribution Width 19.8 % (12.1-15.1); White Blood Count 5.03 10^3/uL (3.29-11.43)
[2024-07-28 06:56] LABS: Anion Gap 11.4 (5-19); Blood Urea Nitrogen 42 mg/dL (8-23); Calcium 7.3 mg/dL (8.5-10.5); Carbon Dioxide 30 mmol/L (22-29); Chloride 97 mmol/L (98-107); Creatinine Clr Calc Pharmacy 26.3223; Glucose 75 mg/dL (65-115); Osmolality Calculated 287 mOsm/kg (285-295); Potassium 4.4 mmol/L (3.5-5.1); Sodium 134 mmol/L (136-145)
[2024-07-28] MEDS: budesonide 0.5 mg/2 mL Neb INHALATION ×2 (08:21→21:37)
[2024-07-28] MEDS: polyethylene glycol 3350 Pkt 17 gm PO (08:33)
[2024-07-28] MEDS: sodium chloride 1 gm Tablet PO (08:34)
[2024-07-28] MEDS: nystatin powder 15 gm Btl 1 APPLIC TOPICAL ×2 (08:34→16:58)
[2024-07-28] MEDS: folic acid 1 mg Tablet PO ×2 (08:34→16:58)
[2024-07-28] MEDS: sertraline 50 mg Tablet PO (08:34)
[2024-07-28 10:36] LABS: Glucose Point of Care 147 mg/dL (70-110)
--- NOTE | 2024-07-28 10:41 | P.PN_ITS ---
Subjective 2 Subjective: The patient was seen and examined. Patient feels better. She had hypoglycemia last night. Denies nausea or vomiting. Decreased diarrhea. No chest pain no headaches. No shortness of breath. Medications: Reviewed: Yes Medication Review Details: Current Medications Acetaminophen (Acetaminophen 325 Mg Tablet) 650 mg PO Q6H PRN PRN Reason: Mild/Mod Pain Or Temp >/= 101 Last Admin: 07/26/24 08:23 Dose: 650 mg Benzonatate (Benzonatate 100 Mg Capsule) 100 mg PO TID PRN PRN Reason: COUGH Last Admin: 07/22/24 15:51 Dose: 100 mg Bisacodyl (Bisacodyl 5 Mg Tablet) 10 mg PO DAILY PRN; Protocol PRN Reason: Constipation (see protocol) Last Admin: 07/16/24 09:35 Dose: 10 mg Budesonide (Budesonide 0.5 Mg/2 Ml Neb) 0.5 mg INHALATION BID.RESPIRATORY MAHNAZ Last Admin: 07/28/24 08:21 Dose: 0.5 mg Folic Acid (Folic Acid 1 Mg Tablet) 1 mg PO BID MAHNAZ Last Admin: 07/28/24 08:34 Dose: 1 mg Furosemide (Furosemide 40 Mg Tablet) 40 mg PO DAILY@0800 MAHNAZ Last Admin: 07/25/24 08:46 Dose: 40 mg Glucagon (Glucagon 1 Mg/Ml Kit 1 Ml) 1 mg IM ONCE PRN; Protocol PRN Reason: Adult Acute Hypoglycemia Nursing Prot. Dextrose (D5w) 500 mls @ 0 mls/hr IV ONCE PRN; Protocol PRN Reason: Adult Acute Hypoglycemia Prot Dextrose (D10w) 125 mls @ 750 mls/hr IV PRN PRN; Protocol PRN Reason: Adult Acute Hypoglycemia Nursing Protocol Dextrose (D10w) 250 mls @ 1,000 mls/hr IV PRN PRN; Protocol PRN Reason: Adult Acute Hypoglycemia Nursing Protocol Ciprofloxacin/Dextrose (Cipro) 400 mg in 200 mls @ 200 mls/hr IV Q24H MAHNAZ; Protocol Last Infusion: 07/27/24 21:24 Dose: Infused Metronidazole (Flagyl Iv) 500 mg in 100 mls @ 100 mls/hr IV Q8H MAHNAZ; Protocol Last Infusion: 07/28/24 09:36 Dose: Infused Insulin Human Lispro (Insulin Lispro 100 Unit/1 Ml) 0 unit SUBCUT WM&BEDTIME MAHNAZ; Protocol Last Admin: 07/27/24 20:20 Dose: 4 unit Ipratropium [place] (Ipratropium 0.5 Mg/2.5 Ml Neb) 0.5 mg INHALATION Q6H.RESP MAHNAZ Last Admin: 07/28/24 08:21 Dose: 0.5 mg Lactulose (Lactulose Oral Liq 20 Gm/30 Ml Udc) 10 gm PO DAILY PRN; Protocol PRN Reason: Constipation (see protocol) Lanolin (Lanolin Oint 7 Gm) 1 applic TOPICAL PRN PRN PRN Reason: DRYNESS Last Admin: 07/16/24 10:17 Dose: 1 applic Levalbuterol HCl (Levalbuterol 0.63 Mg/3 Ml Neb) 0.63 mg INHALATION Q6H.RESP MAHNAZ Last Admin: 07/28/24 08:21 Dose: 0.63 mg Magnesium Hydroxide (Magnesium Hydroxide 30 Ml Udc) 30 ml PO DAILY PRN; Protocol PRN Reason: Constipation (see protocol) Nystatin (Nystatin Powder 15 Gm Btl) 1 applic TOPICAL BID MAHNAZ Last Admin: 07/28/24 08:34 Dose: 1 applic Ondansetron HCl (Ondansetron 2 Mg/Ml Sdv 2 Ml) 4 mg IVP Q8H PRN PRN Reason: vomiting, or N/V if npo Last Admin: 07/20/24 17:49 Dose: 4 mg Pantoprazole Sodium (Pantoprazole 40 Mg Sdv) 40 mg IVP Q12H MAHNAZ Last Admin: 07/28/24 02:27 Dose: 40 mg Polyethylene Glycol (Polyethylene Glycol 3350 Pkt 17 Gm) 17 gm PO DAILY MAHNAZ Last Admin: 07/28/24 08:33 Dose: 17 gm Sertraline HCl (Sertraline 50 Mg Tablet) 50 mg PO DAILY MAHNAZ Last Admin: 07/28/24 08:34 Dose: 50 mg Sodium Chloride (Sodium Chloride 1 Gm Tablet) 1 gm PO BID MAHNAZ Last Admin: 07/28/24 08:34 Dose: 1 gm Sucralfate (Sucralfate 1 Gm/10 Ml Oral Liq Udc) 1 gm PO AC&BEDTIME MAHNAZ Last Admin: 07/28/24 06:32 Dose: 1 gm Vitals/I&O/Wt Last Vital Signs Temp 98.2 F 07/28/24 07:47 Pulse 86 07/28/24 08:00 Resp 18 07/28/24 08:00 BP 109/60 07/28/24 07:47 Pulse Ox 92 07/28/24 08:00 O2 Del Method Nasal Cannula 07/28/24 08:00 O2 Flow Rate 3 07/28/24 08:00 07/27/24 07/28/24 07/28/24 22:59 06:59 14:59 Intake Total 1020 / 2152 460 / 2612 340 / 340 Output Total 1600 / 1600 900 / 2500 Balance -580 / 552 -440 / 112 340 / 340 Weight last 48 hrs Weight 80.195 kg Weight 80.059 kg Physical Exam 2 Narrative: Elderly lady in bed no apparent distress. HEENT normocephalic atraumatic. Neck is supple no JVP. Lungs right sided wheezing improving as per nurse. Left side improved. Heart irregular with systolic murmur. Abdomen is soft with mild periumbilical hernia pain Extremities no significant edema. Neuro awake alert oriented x 3 Urinary Catheter Management: Low: Cath Placed During This Visit: yes, but has since been removed by the nurse Reason for Continuing Indwelling Catheter: Acute Urinary Retention or Obstruction Urinary Catheter Date of Insertion: 07/15/24 Urinary Catheter Time of Insertion: 14:05 Date Urinary Catheter Removed: 07/21/24 Time Urinary Catheter Discontinued: 15:09 Data 07/28/24 06:16 07/28/24 06:16 A&P Assessment and plan (1) ZACK (acute kidney injury): 9-year-old lady history of pulm hypertension left lower limb DVT. Patient presented with anemia orthopnea hypotension and right hydroureteronephrosis with urinary retention. Patient was started on IV antibiotics for diverticulitis. Patient also was noted to have a Enterococcus faecalis resistant to tetracycline UTI on Cipro. Patient has anemia had endoscopy on July 17 within normal limits on colonoscopy concern for extensive small diverticulosis with entire mucosa somewhat ischemic sloughed off which bled easily the proximal recommended holding anticoagulation for next few weeks The patient is status post IVC filter 1. Acute on chronic renal failure. Patient had acute urinary retention with right-sided hydronephrosis on admission repeat renal ultrasound showed resolution of right-sided hydronephrosis. Please ensure that she does not have any residual hydronephrosis or postvoid residual once Low is removed. -And improving. Patient has a metabolic alkalosis and hyponatremia. May need diuresis. Patient has 2+ urine blood 3+ leukoesterase with a UTI and admission. Please ensure as an outpatient she sees urology -Most recent renal ultrasound shows a severely atrophic right kidney of 6.9 cm left kidney is normal she had a Low in place without hydronephrosis. We need to ensure that she has a full urological evaluation if creatinine is stable this can be done as an outpatient. -Good urine output monitor furosemide. Will stop salt tablets. hyponatremia from zack- if worsens, consider holding furosemide -consider repeat cxr 2. Anemia hemoglobin stable Plan see above Attestations 2 Medical Necessity Statement*: zack resolving, atrophic rt kidney, uti Time Spent in Patient Care: 16 - 35 minutes (>than 50% of time sp ent in counselling and/or direct pt care on unit) . Coding Level of Care Code Acute Code for [facility] Diagnoses ZACK (acute kidney injury) N17.9
[2024-07-28 11:06] LABS: Bilirubin Urine Negative (Negative); Blood Urine 1+ (Negative); Glucose Urine UA Negative (Normal); Ketones Urine Negative (Negative); Leukocyte Esterase Urine 3+ (Negative); Nitrate Urine Negative (Negative); Protein Urine Trace (Negative); Specific Gravity, Urine 1.008 (1.005-1.030); Urine Appearance Cloudy (CLEAR); Urine Color Yellow (Yellow); Urobilinogen Urine 0.2 mg/dL (Negative); pH Urine 5.5 (5-7)
[2024-07-28 11:11] LABS: Bacteria Urine Trace /hpf; Hyaline Casts Urine 2.05 /lpf; RBC Urine >100 /hpf (0-2); Squamous Epithelial Cell Urine 0-5 /hpf (0-5); WBC Urine >100 /hpf (0-5)
[2024-07-28 11:26] LABS: Add Urine Culture? Yes
[2024-07-28 11:28] LABS: Potassium, Radom Urine 14 mmol/L; Urine Creatinine 26 mg/dL (28-217); Urine Random Chloride 15 mmol/L; Urine Random Sodium 15 mmol/L
[2024-07-28] MEDS: acetaminophen 325 mg Tablet 650 MG PO (15:15)
[2024-07-28 16:25] LABS: Glucose Point of Care 154 mg/dL (70-110)
--- NOTE | 2024-07-28 17:10 | P.PN_ITS ---
Subjective 2 Subjective: She is feeling slightly better today. Abdominal pain abated slightly. No further vomiting. Feels tired. Vitals/I&O/Wt Last Vital Signs Temp 98.2 F 07/28/24 15:13 Pulse 88 07/28/24 15:13 Resp 16 07/28/24 15:13 BP 95/55 07/28/24 15:13 Pulse Ox 90 07/28/24 15:13 O2 Del Method Nasal Cannula 07/28/24 15:13 O2 Flow Rate 3 07/28/24 13:59 07/28/24 07/28/24 07/28/24 06:59 14:59 22:59 Intake Total 460 / 2612 700 / 700 100 / 800 Output Total 900 / 2500 750 / 750 Balance -440 / 112 -50 / -50 100 / 50 Weight last 48 hrs Weight 80.195 kg Weight 80.059 kg Physical Exam 2 Narrative: Accompanied by her friend. Const: COMMON NORMALS: patient oriented x3 and alert GENERAL APPEARANCE: c ooperative ORIENTATION/CONSCIOUSNESS: Yes awake HENMT: COMMON NORMALS: oropharynx normal Neck/C-Spine: COMMON NORMALS: no JVD Resp: COMMON NORMALS: normal respiratory effort and clear to auscultation bilaterally AUSCULTATION: clear to auscultation bilaterally Cardio: COMMON NORMALS: no JVD, regular rhythm, S1 normal heart sound present, S2 normal heart sound present and No murmurs present (Cardio) RHYTHM: regular rhythm HEART SOUNDS: S1 normal heart sound present and S2 normal heart sound present GI: COMMON NORMALS: Normal to inspection, nondistended, normoactive bowel sounds present, Soft to palpation and non-tender PALPATION: Yes Soft to palpation and Yes Tenderness to palpation present (GI) OTHER: umbilical hernia. Extremity: COMMON NORMALS: no joint enlargement and no pedal edema Neuro: COMMON NORMALS: patient oriented x3 and moves all extremities S ENSORIUM/ORIENTATION: Yes alert Skin: COMMON NORMALS: no rashes or lesions noted GENERAL SKIN EXAM: no rashes or lesions noted Urinary Catheter Management: Low: Cath Placed During This Visit: yes, but has since been removed by the nurse Reason for Continuing Indwelling Catheter: Acute Urinary Retention or Obstruction Urinary Catheter Date of Insertion: 07/15/24 Urinary Catheter Time of Insertion: 14:05 Date Urinary Catheter Removed: 07/21/24 Time Urinary Catheter Discontinued: 15:09 Data 11/24/24 06:16 07/28/24 06:16 A&P Assessment and plan (1) Cardiogenic shock: (2) Acute hypoxemic respiratory failure: (3) ZACK (acute kidney injury): (4) Anemia: Qualifiers: Anemia type: iron deficiency (5) GI bleed: Qualifiers: GI bleed type/associated pathology: unspecified gastrointestinal hemorrhage type Qualified Code(s): K92.2 - Gastrointestinal hemorrhage, unspecified (6) Ischemic colitis: (7) Hypotension: Qualifiers: Hypotension type: hypotension due to hypovolemia Qualified Code(s): E 86.1 - Hypovolemia (8) Hydronephrosis: (9) Urinary retention: (10) CKD (chronic kidney disease): (11) COPD (chronic obstructive pulmonary disease): (12) Pulmonary hypertension: (13) Deep vein thrombosis, lower left extremity: Qualifiers: Affected thrombotic vein of extremity: unspecified vein of extremity C hronicity: unspecified Qualified Code(s): I82.402 - Acute embolism and thrombosis of unspecified deep veins of left lower extremity (14) S/P IVC filter: (15) Mild aortic stenosis: (16) UTI (urinary tract infection): (17) Generalized weakness: (18) Goals of care, counseling/discussion: Plan 79-year-old lady with past medical history of severe pulmonary hypertension, left lower limb DVT, CKD presented to the ER because of generalized weakness, increased difficulty in breathing than her baseline, orthopnea found to have new anemia with concerns for GI bleed, persistent hypotension, right hydroureteronephrosis with urinary retention. Complicated diverticulitis: feeling slightly better today. No further vomiting. Improvement in abdominal pain. Diverticulitis complicated by microperforation. Continue IV antibiotic. Reviewed vitals, CBC, BMP, noted UA obtained overnight as well. More than 100 RBC, moderate WBC. Follow-up urine culture. Continue Cipro and Flagyl. For now continue clear liquid diet. Ensure clear. Reassess condition. Reassess kidney function. Will benefit from follow-up with surgery. Generalized weakness: Recheck magnesium. Treat diverticulitis. Follow-up repeat urine culture. Arrangements underway for her to proceed to rehabilitation, possibly tomorrow if she is feeling better. Reviewed vitals, CBC, afebrile, leukocytosis. Hemoglobin so far holding steady. 8.5. Most likely in setting of acute anemia along with hypoxia. Seems more acute on chronic. PT/OT evaluation. Fall precautions. Shock: Resolved. Maintaining blood pressure so far. Continue to monitor. Suspected possibly cardiogenic in the setting of aortic stenosis. Reviewed echocardiogram, noted ejection fraction 60%, grade 1 diastolic dysfunction. Mild to moderate aortic stenosis. Required Levophed post EGD/colonoscopy. Holding off on antihypertensive. UTI: Noted UA has been repeated, more than 100 RBC, more than 100 WBC. Follow- up repeat urine culture. Continue treatment of resistant organism. Continue Cipro to complete course. Symptoms abating. Reviewed urine culture, growing Enterococcus faecalis. Resistant to tetracycline, intermediate to vancomycin. Acute anemia: Reviewed hemoglobin, platelets. So far maintaining. So far has not had additional bleeding. Follow-up blood counts. hemoglobin of 6 on admission. Iron deficiency anemia. FOBT positive. Post 2 unit of blood transfusion. Hemoglobin stable. Holding off on Eliquis. Underwent EGD and colonoscopy on 07/17. EGD within normal limits. On colonoscopy concerns for extensive small diverticulosis with entire mucosa somewhat ischemic and sloughed off which bled easily on touch. Surgery recommending holding off on anticoagulation for next few weeks. Continue with Protonix 40 mg twice daily. full liquid diet. Target hemoglobin around 8. Will transfuse accordingly. Acute hypoxia: Resolved. Status post IVC filter placement. Chronically on 3 L. History of COPD and severe pulmonary hypertension. ABG showing acute hypoxic and hypocapnic respiratory failure Repeat limited echocardiogram shows EF of 60% with grade 1 diastolic dysfunction, severe pulmonary hypertension with RVSP of 81 mmHg, moderate increase in right size, mild to moderate aortic valve stenosis with aortic valve area of 1.6. Fluid restriction to less than 1500 cc. Hold Lasix 40 mg daily. Strict input output charting, daily weights. Likelihood of pulmonary embolism high. Patient does have DVT. Unfortunately CTA cannot be done given CKD. Holding off on anticoagulation for now given acute anemia. Given recommendations of holding off on anticoagulation for next few weeks. Nebulization with ipratropium, Xopenex every 6 hour, Pulmicort twice daily. Orthopnea: Mostly chronic. Continue to monitor. Head of the bed elevated 40 degrees. Acute urinary retention with right-sided hydroureteronephrosis: No calculi as per CT abdomen pelvis. Treat UTI. Low catheterization. Repeat renal ultrasound shows resolution of right-sided hydroureteronephrosis. CKD: Reviewed nephrology note. Suspected progression of CKD. Follow-up with nephrology after discharge. Creatinine at baseline. Medical reconciliation done for nephrotoxic drugs. Appreciate CT abdomen pelvis. Monitor BMP in morning. Hypertension: On Cardizem 120 mg p.o. twice daily at home. Currently on hold because of hypotension. Monitor. Telemetry. Hyperglycemia: Blood sugars elevated. A1c 5.2. For now continue with sliding scale insulin. Monitor for hypoglycemia. Left lower limb DVT: Appreciate bilateral lower limb Dopplers. Concerning for acute DVT. Status post IVC filter as above given holding off on anticoagulation for next few weeks. Goals of care discussion: She would want her son Hoang to make decisions when she is not able to make for herself. For now she would want to remain full code but does not want chest compression to be tried more than 1 time. She is agreeable to short-term of mechanical ventilation if needed. CODE STATUS: Patient states her son Hoang will be the DPOA. Will confirm with Mr. Bolton with if he would like to be the DPOA or not. Patient would like to be full code for now. Full liquid diet SCD for DVT prophylaxis once DVT is ruled out. Protonix will be sufficient for PUD prophylaxis. Guarded prognosis. Attestations 2 Medical Necessity Statement*: Continue admission for assessment and management of complicated symptomatic diverticulitis with microperforations, in the setting of ZACK, UTI, acute anemia. and Moderate MDM includes number and complexity of problems actively addressed during encounter and amount and/or complexity of data reviewed/ordered [ previous or external records, resulted lab(s)/test(s) and ordered lab(s)/test(s)] as documented Diagnoses Cardiogenic shock R57.0 Acute hypoxemic respiratory failure J96.01 ZACK (acute kidney injury) N17.9 Anemia D64.9 Anemia type: iron deficiency Gastrointestinal hemorrhage, unspecified gastrointestinal hemorrhage type K92.2 GI bleed type/associated pathology: unspecified gastrointestinal hemorrhage type Ischemic colitis K55.9 Hypotension due to hypovolemia E86.1 Hypotension type: hypotension due to hypovolemia Hydronephrosis N13.30 Urinary retention R33.9 CKD (chronic kidney disease) N18.9 COPD (chronic obstructive pulmonary disease) J44.9 Pulmonary hypertension I27.20 Deep vein thrombosis (DVT) of left lower extremity, unspecified chronicity, unspecified vein I82.402 Affected thrombotic vein of extremity: unspecified vein of extremity Chronicity: unspecified S/P IVC filter Z95.828 Mild aortic stenosis I35.0 UTI (urinary tract infection) N39.0 Generalized weakness R53.1 Goals of care, counseling/discussion Z71.89
[2024-07-28] MEDS: ciprofloxacin 400 MG/200 ML PREMIX 200 MG IV (19:07)
[2024-07-28 20:46] LABS: Glucose Point of Care 147 mg/dL (70-110)
[2024-07-29] VITALS (9 sets, daily range): BP systolic 101–121; BP diastolic 55–83; PULSE 74–93; RESP 15–18; TEMP 36.4–37; O2SAT 92–95
[2024-07-29] MEDS: metroNIDAZOLE IV 500 MG/100 ML PREMIX 100 MG IV ×2 (00:13→09:00)
[2024-07-29] MEDS: pantoprazole 40 mg SDV IVP ×2 (02:44→15:20)
[2024-07-29 03:08] LABS: Basophils % 0.7 %; Eosinophils # 0.2 10^3/uL (0.0-0.8); Eosinophils % 3.8 %; Hematocrit 28.6 % (36-47); Lymphocytes # 1.1 10^3/uL (0.8-4.8); Lymphocytes % 18.8 %; Mean Corpuscular Hemoglobin 27.5 pg (27-33); Mean Corpuscular Volume 94.7 fl (85-98); Mean Platelet Volume 10.1 fL (7.4-10.4); Monocytes # 0.4 10^3/uL (0.2-0.9); Monocytes % 6.4 %; Neutrophils # 3.91 10^3/uL (1.8-7.7); Neutrophils % 69.8 %; Nucleated Red Blood Cells % 0 %; Platelet Count 71 10^3/cmm (157-399); Red Blood Count 3.02 10^6/uL (3.85-5.65); Red Cell Distribution Width 19.9 % (12.1-15.1)
[2024-07-29] MEDS: levalbuterol 0.63 mg/3 mL Neb INHALATION ×3 (03:12→20:36)
[2024-07-29] MEDS: ipratropium 0.5 mg/2.5 mL Neb INHALATION ×3 (03:13→20:35)
[2024-07-29 03:32] LABS: Alanine Aminotransferase 8 U/L (0-33); Albumin Level 2.4 g/dL (3.5-5.2); Alkaline Phosphatase 81 U/L (35-105); Aspartate Amino Transferase 20 U/L (0-32); Blood Urea Nitrogen 33 mg/dL (8-23); Calcium 7.2 mg/dL (8.5-10.5); Carbon Dioxide 27 mmol/L (22-29); Chloride 97 mmol/L (98-107); Creatinine Clr Calc Pharmacy 27.9675; Globulin 3.5 g/dL (1.3-4.6); Glucose 67 mg/dL (65-115); Osmolality Calculated 280 mOsm/kg (285-295); Phosphorus 2.7 mg/dL (2.5-4.5); Sodium 132 mmol/L (136-145); Total Bilirubin 0.3 mg/dL (0.15-1.2); Total Protein 5.9 g/dL (6.6-8.7)
[2024-07-29 03:39] LABS: Anion Gap 12.8 (5-19); Potassium 4.8 mmol/L (3.5-5.1)
[2024-07-29 06:12] LABS: Glucose Point of Care 85 mg/dL (70-110)
[2024-07-29] MEDS: sucralfate 1 gm/10 mL Oral Liq UDC PO ×4 (06:50→20:57)
[2024-07-29] MEDS: budesonide 0.5 mg/2 mL Neb INHALATION ×2 (08:05→20:36)
[2024-07-29] MEDS: sertraline 50 mg Tablet PO (08:59)
[2024-07-29] MEDS: folic acid 1 mg Tablet PO ×2 (08:59→17:39)
--- NOTE | 2024-07-29 11:17 | P.PN_ITS ---
Subjective 2 Subjective: no new complaints Medications: Reviewed: Yes Vitals/I&O/Wt Last Vital Signs Temp 98 F 07/29/24 08:00 Pulse 76 07/29/24 08:00 Resp 15 07/29/24 08:00 BP 114/68 07/29/24 08:00 Pulse Ox 93 07/29/24 08:00 O2 Del Method Nasal Cannula 07/29/24 08:00 O2 Flow Rate 3 07/29/24 08:00 07/28/24 07/29/24 07/29/24 22:59 06:59 14:59 Intake Total 780 / 1480 580 / 2060 460 / 460 Output Total 650 / 1400 700 / 2100 Balance 130 / 80 -120 / -40 459 / 459 Weight last 48 hrs Weight 80.059 kg Weight 80.195 kg Physical Exam 2 Narrative: Patient is awake alert no distress HEENT S1-S2 regular rate and rhythm Lungs clear No edema Urinary Catheter Management: Low: Cath Placed During This Visit: yes, but has since been removed by the nurse Reason for Continuing Indwelling Catheter: Acute Urinary Retention or Obstruction Urinary Catheter Date of Insertion: 07/15/24 Urinary Catheter Time of Insertion: 14:05 Date Urinary Catheter Removed: 07/21/24 Time Urinary Catheter Discontinued: 15:09 Data 07/29/24 02:33 07/29/24 02:33 A&P Assessment and plan (1) ZACK (acute kidney injury): 1. Acute on chronic kidney disease stage IV: Baseline creatinine is 2-3 range . Patient used to follow-up with nephrology but has lost to follow-up in the last 1 to 2 years. I suspect patient has progression of CKD . Noted thatPatient has fluctuating blood pressures with borderline low blood pressures currently. R Continue to monitor renal function for now, Cr and UOP improved , Arrange Nephrology follow up @ [place] with [facility] 2. Anemia: Low hemoglobin of 6.8 on presentation , status post transfusions, , s/p OMKAR, noted patient had EGD and colonoscopy 3. Diastolic CHF, status post diuretics on hold for now, will likely need dialysis for volume management 4. Acute on chronic respiratory failure currently on 3 L O2 5. Nausea , Vomiting and abdominal pain : CT abd /pelvis --> diverticulitis Patient evaluated using audiovisual cart. Time spent 40 minutes. (2) CKD (chronic kidney disease): Attestations 2 Medical Necessity Statement*: per medicine Coding Level of Care Code Acute Code for g Fwd Diagnoses ZACK (acute kidney injury) N17.9 CKD (chronic kidney disease) N18.9
[2024-07-29 11:38] LABS: Glucose Point of Care 97 mg/dL (70-110)
--- NOTE | 2024-07-29 12:32 | PC.SOCIAL ---
IMM Updated Updated pt on IMM. No questions voiced. Provided pt a copy. Initialed, dated, & timed copy in chart.
[2024-07-29] MEDS: fluconazole 100 mg Tablet 200 MG PO (13:38)
--- NOTE | 2024-07-29 14:56 | P.PN_ITS ---
Subjective 2 Subjective: Hospital course, labs appreciated. Examination patient lying comfortably in bed. Complaining of mild pain in right lower quadrant of abdomen. Denies any nausea or vomiting. Tolerating diet well. Has remained hemodynamically stable and afebrile. Currently on 2 to 3 L of oxygen supplementation. Vitals/I&O/Wt Last Vital Signs Temp 97.9 F 07/29/24 12:00 Pulse 88 07/29/24 12:00 Resp 18 07/29/24 12:00 BP 101/67 07/29/24 12:00 Pulse Ox 95 07/29/24 12:00 O2 Del Method Nasal Cannula 07/29/24 12:00 O2 Flow Rate 3 07/29/24 08:00 07/28/24 07/29/24 07/29/24 22:59 06:59 14:59 Intake Total 780 / 1480 580 / 2060 700 / 700 Output Total 650 / 1400 700 / 2100 751 / 751 Balance 130 / 80 -120 / -40 -51 / -51 Weight last 48 hrs Weight 80.059 kg Weight 80.195 kg Physical Exam 2 Narrative: HEENT: PERRLA, pupils bilaterally equal and reactive, more tired appearing today Chest: Bilateral bronchial breath sounds all over lung morris with occasional rhonchi, JVD elevated CVS: S1-S2 regular, soft pansystolic murmur at fourth intercostal space left retrosternal, no tachycardia, no gallops, no rubs Abdomen: Soft, Mild tenderness in right lower quadrant, soft lumps felt nontender, no organomegaly, bowel sounds present Neuro: No focal deficits, no facial deformity, AO x3, Urinary Catheter Management: Low: Cath Placed During This Visit: yes, but has since been removed by the nurse Reason for Continuing Indwelling Catheter: Acute Urinary Retention or Obstruction Urinary Catheter Date of Insertion: 07/15/24 Urinary Catheter Time of Insertion: 14:05 Date Urinary Catheter Removed: 07/21/24 Time Urinary Catheter Discontinued: 15:09 Data 07/29/24 02:33 07/29/24 02:33 A&P Assessment and plan (1) Diverticulitis of intestine with perforation without abscess: (2) Cardiogenic shock: (3) Acute hypoxemic respiratory failure: (4) ZACK (acute kidney injury): (5) Anemia: Qualifiers: Anemia type: iron deficiency (6) GI bleed: Qualifiers: GI bleed type/associated pathology: unspecified gastrointestinal hemorrhage type Qualified Code(s): K92.2 - Gastrointestinal hemorrhage, unspecified (7) Ischemic colitis: (8) Hypotension: Qualifiers: Hypotension type: hypotension due to hypovolemia Qualified Code(s): E 86.1 - Hypovolemia (9) Hydronephrosis: (10) Urinary retention: (11) CKD (chronic kidney disease): (12) COPD (chronic obstructive pulmonary disease): (13) Pulmonary hypertension: (14) Deep vein thrombosis, lower left extremity: Qualifiers: Affected thrombotic vein of extremity: unspecified vein of extremity C hronicity: unspecified Qualified Code(s): I82.402 - Acute embolism and thrombosis of unspecified deep veins of left lower extremity (15) S/P IVC filter: (16) Mild aortic stenosis: (17) UTI (urinary tract infection): (18) Generalized weakness: (19) Goals of care, counseling/discussion: Plan 79-year-old lady with past medical history of severe pulmonary hypertension, left lower limb DVT, CKD presented to the ER because of generalized weakness, increased difficulty in breathing than her baseline, orthopnea found to have new anemia with concerns for GI bleed, persistent hypotension, right hydroureteronephrosis with urinary retention. Complicated diverticulitis: Tolerating oral diet. Afebrile. Complaining of mild abdominal pain. No nausea or vomiting. Care discussed in detail with surgery on-call. Continue with Cipro and Flagyl. Most likely will try to continue treatment for next 14 days. Will need to follow-up with surgery as an outpatient. Generalized weakness: In setting of prolonged hospitalization. Physical therapy, Occupational Therapy evaluation. Hemoglobin stable. Oxygenation stable. Shock: Resolved. Maintaining blood pressure so far. Continue to monitor. Suspected possibly cardiogenic in the setting of aortic stenosis. Reviewed echocardiogram, noted ejection fraction 60%, grade 1 diastolic dysfunction. Mild to moderate aortic stenosis. Required Levophed post EGD/colonoscopy. Holding off on antihypertensive. UTI: During hospitalization had UTI with Enterococcus. Appreciate repeated UA. Concern for yeast. Follow-up urine culture. Continue with Cipro and Flagyl as above. Start on fluconazole 200 mg oral daily for next 7 days. Acute anemia: Stable for now. Iron deficiency anemia. Post completion of 5-day course of IV iron supplementation. FOBT positive. Post EGD and colonoscopy. Post overall 3 unit of blood transfusion. Hemoglobin stable. Holding off on Eliquis. Underwent EGD and colonoscopy on 07/17. EGD within normal limits. On colonoscopy concerns for extensive small diverticulosis with entire mucosa somewhat ischemic and sloughed off which bled easily on touch. Surgery recommending holding off on anticoagulation for next few weeks. Continue with Protonix 40 mg twice daily. full liquid diet. Target hemoglobin around 8. Will transfuse accordingly. Acute hypoxia: Resolved. Insetting of congestive heart failure, severe pulmonary hypertension along with aortic valve stenosis. History of PE in the past. History of COPD. Status post IVC filter placement. Chronically on 3 L. Repeat limited echocardiogram shows EF of 60% with grade 1 diastolic dysfunction, severe pulmonary hypertension with RVSP of 81 mmHg, moderate increase in right size, mild to moderate aortic valve stenosis with aortic valve area of 1.6. Fluid restriction to less than 1500 cc. Hold Lasix 40 mg daily. Strict input output charting, daily weights. Likelihood of pulmonary embolism high. Patient does have DVT. Unfortunately CTA cannot be done given CKD. Holding off on anticoagulation for now given acute anemia. Given recommendations of holding off on anticoagulation for next few weeks. Nebulization with ipratropium, Xopenex every 6 hour, Pulmicort twice daily. Orthopnea: Mostly chronic. Continue to monitor. Head of the bed elevated 40 degrees. Acute urinary retention with right-sided hydroureteronephrosis: No calculi as per CT abdomen pelvis. Treat UTI. Low catheterization. Repeat renal ultrasound shows resolution of right-sided hydroureteronephrosis. Will need to follow-up with urology as an outpatient. CKD: Reviewed nephrology note. Suspected progression of CKD. Follow-up with nephrology after discharge. Creatinine at baseline. Medical reconciliation done for nephrotoxic drugs. Appreciate CT abdomen pelvis. Monitor BMP in morning. Hypertension: On Cardizem 120 mg p.o. twice daily at home. Currently on hold because of hypotension. Monitor. Telemetry. Hyperglycemia: Blood sugars elevated. A1c 5.2. For now continue with sliding scale insulin. Monitor for hypoglycemia. Left lower limb DVT: Appreciate bilateral lower limb Dopplers. Concerning for acute DVT. Status post IVC filter as above given holding off on anticoagulation for next few weeks. Goals of care discussion: Early during hospitalization. She would want her son Hoang to make decisions when she is not able to make for herself. For now she would want to remain full code but does not want chest compression to be tried more than 1 time. She is agreeable to short-term of mechanical ventilation if needed. CODE STATUS: Patient states her son Hoang will be the DPOA. Will confirm with Mr. Bolton with if he would like to be the DPOA or not. Patient would like to be full code for now. Full liquid diet SCD for DVT prophylaxis once DVT is ruled out. Protonix will be sufficient for PUD prophylaxis. Guarded prognosis. Discharge plan: Plan to discharge to SNF given prolonged hospitalization, deconditioning. Patient has been accepted. Authorization received. Most likely brown discharge in next 24 hours if patient remains stable. Attestations 2 Medical Necessity Statement*: Requires further hospitalization for management of diverticulitis with microperforation in a patient admitted for anemia post colonoscopy found to have ischemic colitis, requiring blood transfusion, hypoxic respiratory failure in setting of COPD exacerbation, CHF along with severe pulmonary hypertension, ZACK on CKD in setting of urinary retention leading to right-sided hydroureteronephrosis Viracept discharge planning is sought. Diagnoses Diverticulitis of intestine with perforation without abscess K57.80 Cardiogenic shock R57.0 Acute hypoxemic respiratory failure J96.01 ZACK (acute kidney injury) N17.9 Anemia D64.9 Anemia type: iron deficiency Gastrointestinal hemorrhage, unspecified gastrointestinal hemorrhage type K92.2 GI bleed type/associated pathology: unspecified gastrointestinal hemorrhage type Ischemic colitis K55.9 Hypotension due to hypovolemia E86.1 Hypotension type: hypotension due to hypovolemia Hydronephrosis N13.30 Urinary retention R33.9 CKD (chronic kidney disease) N18.9 COPD (chronic obstructive pulmonary disease) J44.9 Pulmonary hypertension I27.20 Deep vein thrombosis (DVT) of left lower extremity, unspecified chronicity, unspecified vein I82.402 Affected thrombotic vein of extremity: unspecified vein of extremity Chronicity: unspecified S/P IVC filter Z95.828 Mild aortic stenosis I35.0 UTI (urinary tract infection) N39.0 Generalized weakness R53.1 Goals of care, counseling/discussion Z71.89
[2024-07-29 17:15] LABS: Glucose Point of Care 107 mg/dL (70-110)
[2024-07-29] MEDS: metroNIDAZOLE 500 MG Tablet PO (17:39)
[2024-07-29 20:20] LABS: Glucose Point of Care 154 mg/dL (70-110)
[2024-07-29] MEDS: ciprofloxacin 500 mg Tablet PO (20:57)
[2024-07-30] VITALS (9 sets, daily range): BP systolic 104–113; BP diastolic 60–70; PULSE 75–83; RESP 15–18; TEMP 36.7–36.8; O2SAT 93–95
[2024-07-30] MEDS: pantoprazole 40 mg SDV IVP (01:52)
[2024-07-30] MEDS: ipratropium 0.5 mg/2.5 mL Neb INHALATION ×2 (02:43→07:23)
[2024-07-30] MEDS: levalbuterol 0.63 mg/3 mL Neb INHALATION ×2 (02:43→07:23)
--- NOTE | 2024-07-30 05:03 | P.PN_ITS ---
Subjective 2 Subjective: no new c/o Medications: Reviewed: Yes Vitals/I&O/Wt Last Vital Signs Temp 98.2 F 07/30/24 04:00 Pulse 78 07/30/24 04:00 Resp 18 07/30/24 04:00 BP 104/62 07/30/24 04:00 Pulse Ox 95 07/30/24 04:00 O2 Del Method Nasal Cannula 07/30/24 04:00 O2 Flow Rate 3 07/30/24 04:00 07/29/24 07/29/24 07/30/24 14:59 22:59 06:59 Intake Total 700 / 700 600 / 1300 Output Total 751 / 751 650 / 1401 Balance -51 / -51 -50 / -101 Weight last 48 hrs Weight 80.059 kg Weight 80.195 kg Physical Exam 2 Narrative: Patient is awake alert no distress HEENT S1-S2 regular rate and rhythm Lungs clear No edema Urinary Catheter Management: Low: Cath Placed During This Visit: yes, but has since been removed by the nurse Reason for Continuing Indwelling Catheter: Acute Urinary Retention or Obstruction Urinary Catheter Date of Insertion: 07/15/24 Urinary Catheter Time of Insertion: 14:05 Date Urinary Catheter Removed: 07/21/24 Time Urinary Catheter Discontinued: 15:09 Data 07/29/24 02:33 07/29/24 02:33 A&P Assessment and plan (1) ZACK (acute kidney injury): 1. Acute on chronic kidney disease stage IV: Baseline creatinine is 2-3 range . Patient used to follow-up with nephrology but has lost to follow-up in the last 1 to 2 years. I suspect patient has progression of CKD . Noted that Patient has fluctuating blood pressures with borderline low blood pressures currently. R Continue to monitor renal function for now, Cr and UOP improved , Arrange Nephrology follow up @ [place] [facility] 2. Anemia: Low hemoglobin of 6.8 on presentation , status post transfusions, , s/p OMKAR, noted patient had EGD and colonoscopy 3. Diastolic CHF, status post diuretics on hold for now, will likely need dialysis for volume management 4. Acute on chronic respiratory failure currently on 3 L O2 5. Nausea , Vomiting and abdominal pain : CT abd /pelvis --> diverticulitis Patient evaluated using audiovisual cart. Time spent 40 minutes. (2) CKD (chronic kidney disease): Attestations 2 Medical Necessity Statement*: per [facility] Coding Level of Care Code Acute Code for Chg Fwd Diagnoses ZACK (acute kidney injury) N17.9 CKD (chronic kidney disease) N18.9
[2024-07-30 05:37] LABS: Basophils # 0.1 10^3/uL (0.0-0.1); Basophils % 0.9 %; Eosinophils # 0.2 10^3/uL (0.0-0.8); Eosinophils % 3.4 %; Hematocrit 26.5 % (36-47); Lymphocytes # 0.8 10^3/uL (0.8-4.8); Lymphocytes % 14.5 %; Mean Corpuscular HGB Conc 30.2 g/dL (30-55); Mean Corpuscular Hemoglobin 27.8 pg (27-33); Mean Platelet Volume 9.5 fL (7.4-10.4); Monocytes # 0.3 10^3/uL (0.2-0.9); Monocytes % 5.1 %; Neutrophils % 75.7 %; Nucleated Red Blood Cells % 0 %; Platelet Count 215 10^3/cmm (157-399); Red Blood Count 2.88 10^6/uL (3.85-5.65); Red Cell Distribution Width 19.4 % (12.1-15.1); White Blood Count 5.67 10^3/uL (3.29-11.43)
[2024-07-30 05:55] LABS: Alanine Aminotransferase 6 U/L (0-33); Albumin Level 2.4 g/dL (3.5-5.2); Alkaline Phosphatase 73 U/L (35-105); Anion Gap 9.1 (5-19); Aspartate Amino Transferase 16 U/L (0-32); Blood Urea Nitrogen 23 mg/dL (8-23); Calcium 7.4 mg/dL (8.5-10.5); Carbon Dioxide 28 mmol/L (22-29); Chloride 100 mmol/L (98-107); Creatinine Clr Calc Pharmacy 29.8145; Globulin 3.2 g/dL (1.3-4.6); Glucose 69 mg/dL (65-115); Magnesium 1.9 mg/dL (1.7-2.3); Osmolality Calculated 278 mOsm/kg (285-295); Phosphorus 2.4 mg/dL (2.5-4.5); Potassium 4.1 mmol/L (3.5-5.1); Sodium 133 mmol/L (136-145); Total Bilirubin 0.3 mg/dL (0.15-1.2); Total Protein 5.6 g/dL (6.6-8.7)
[2024-07-30 06:19] LABS: Glucose Point of Care 82 mg/dL (70-110)
[2024-07-30] MEDS: sucralfate 1 gm/10 mL Oral Liq UDC PO ×2 (06:34→10:58)
[2024-07-30] MEDS: budesonide 0.5 mg/2 mL Neb INHALATION (07:23)
[2024-07-30] MEDS: sertraline 50 mg Tablet PO (08:13)
[2024-07-30] MEDS: ciprofloxacin 500 mg Tablet PO (08:13)
[2024-07-30] MEDS: metroNIDAZOLE 500 MG Tablet PO (08:13)
[2024-07-30] MEDS: folic acid 1 mg Tablet PO (08:13)
[2024-07-30] MEDS: fluconazole 100 mg Tablet 200 MG PO (08:13)
--- NOTE | 2024-07-30 10:58 | P.DS_ITS ---
Discharge Providers Date of Admission: 07/15/24 14:10 Date of Discharge: July 30, 2024 Attending Provider at Admission: Rudy Day MD Attending Provider at Discharge: Rudy Day MD Consults: Telemetry nephrology Surgery: Dr. Kennedy Cardiology: Dr. Batres Primary Care Provider: Jeff Banegas DO Diagnoses at Discharge Discharge Diagnosis (1) ZACK (acute kidney injury): Status: Acute (2) CKD (chronic kidney disease): Status: Chronic (3) Goals of care, counseling/discussion: Status: Acute (4) Hypotension: Status: Acute Qualifiers: Hypotension type: hypotension due to hypovolemia Qualified Code(s): E86.1 - Hypovolemia (5) Cardiogenic shock: Status: Acute (6) Pulmonary hypertension: Status: Acute Permanent problem details: Severe (7) Mild aortic stenosis: Status: Acute (8) Chronic anticoagulation: Status: Acute (9) Deep vein thrombosis, lower left extremity: Status: Acute Qualifiers: Affected thrombotic vein of extremity: unspecified vein of extremity Chronicity: unspecified Qualified Code(s): I82.402 - Acute embolism and thrombosis of unspecified deep veins of left lower extremity Permanent problem details: 03/17- Nonocclusive thrombus distal left superficial femoral vein and popliteal vein. (10) S/P IVC filter: Status: Acute Permanent problem details: 07/19/2024 (11) Upper GI bleed: Status: Acute Permanent problem details: Present on admission (12) Ischemic colitis: Status: Acute (13) Diverticulitis of intestine with perforation without abscess: Status: Acute (14) Hydronephrosis: Status: Acute (15) Urinary retention: Status: Acute (16) UTI (urinary tract infection): Status: Acute (17) Anemia: Status: Acute Qualifiers: Anemia type: iron deficiency (18) Acute blood loss anemia: Status: Acute (19) COPD (chronic obstructive pulmonary disease): Status: Acute (20) Acute hypoxemic respiratory failure: Status: Acute (21) Generalized weakness: Status: Acute Reason for Visit Reason for Visit: SOB Brief History: History as per HPI: Susan Resendiz is a 79 year old female with past medical history of hypertension, pulmonary hypertension, COPD, chronically on 3 L of oxygen supplementation, left lower limb DVT presents to the ER today because of gener alized weakness in both her lower limbs getting worse over last 2 to 3 days, worsening difficulty in breathing over the last 4 to 5 days, worsening swelling in her lower limbs for last 4 to 5 days. As per the patient she fell around 2 days ago at that time EMS had requested her to come to the ER but she declined. Over the last day she has not been able to stand up or move hence she decided to come to ER today. She denies any nausea, vomiting, headache, dizziness, chest pain, diarrhea, dysuria. Patient has not noticed any decrease in her urine output than usual. The ER patient was found to be hypotensive with blood pressures down to 80 systolics for which she required a liter of fluid bolus after which it improved to 100 systolics, hemoglobin of 6, creatinine of 2.6. Patient underwent CT abdomen pelvis and chest after receiving 0.25 of IV Ativan. Hospital Course Hospital Course Patient was admitted to the hospital further evaluation and management of shock, generalized weakness in setting of acute anemia with a hemoglobin of 6 on presentation along with acute hypoxic respiratory failure. She was also found to have severe right-sided hydroureteronephrosis in setting of urinary retention for which Low catheter was placed. She was admitted to the ICU. Overall during hospitalization she received 3 units of blood transfusion, her anticoagulation was withheld. With concerns for UTI she was started on broad- spectrum IV antibiotics. During hospitalization patient was intermittently on and off vasopressors with Levophed. Surgery was consulted and eventually patient underwent EGD and colonoscopy on 07/17 with colonoscopy showing concerns for ischemic colitis with friable colonic mucosa. She was advised to hold off on anticoagulation for next few weeks going further. Lower limb Dopplers are consistent with acute left DVT. As patient will require further anticoagulation which could not be continued because of colonoscopy findings cardiology was consulted and she underwent IVC filter placement on 07/19. She did develop worsening of renal functions for which nephrology was consulted. Eventually her renal functions stabilized once diuretics were withheld. Her hospitalization was further complicated by patient Mel nausea and vomiting which was found to be in setting of diverticulitis with microperforation for which she was started on IV antibiotics. Currently patient is able to recall that liquid diet and is able to work with physical therapy with stable hemodynamics and oxygen requirements. Repeat abdominal imaging showed resolution of right-sided hydroureteronephrosis. She has been discharged to SNF for further rehabitation and monitoring with advice to take ciprofloxacin and Flagyl for next 12 days along with fluconazole for next 7 days. She is not to take Eliquis for next 2 to 3 weeks. She is to recheck CBC and CMP next 1 week. Physical Exam Narrative: HEENT: PERRLA, pupils bilaterally equal and reactive, more tired appearing today Chest: Bilateral bronchial breath sounds all over lung morris with occasional rhonchi, JVD elevated CVS: S1-S2 regular, soft pansystolic murmur at fourth intercostal space left retrosternal, no tachycardia, no gallops, no rubs Abdomen: Soft, Mild tenderness in right lower quadrant, soft lumps felt nontender, no organomegaly, bowel sounds present Neuro: No focal deficits, no facial deformity, AO x3, Const: COMMON NORMALS: patient oriented x3 and alert GENERAL APPEARANCE: cooperative, in distress, ill appearing, frail appearing and Edematous ORIENTATION/CONSCIOUSNESS: Yes awake, Yes oriented to person, Yes oriented to place and Yes oriented to time Neuro: COMMON NORMALS: patient oriented x3 SENSORIUM/ORIENTATION: Yes alert, Yes oriented to person, Yes oriented to place and Yes oriented to time Urinary Catheter Management: Low: Cath Placed During This Visit: yes, but has since been removed by the nurse Reason for Continuing Indwelling Catheter: Acute Urinary Retention or Obstruction Urinary Catheter Date of Insertion: 07/15/24 Urinary Catheter Time of Insertion: 14:05 Date Urinary Catheter Removed: 07/21/24 Time Urinary Catheter Discontinued: 15:09 Discharge Data Studies Completed and Pending Completed Studies During Hospitalization Category Date Time Status CT abdomen pelvis w con* [id number] Routine Cat Scan 07/26/24 09:[address] [place] [id number] Stat Cat Scan 07/15/24 11:39 Completed XR cervical spine 3V* [id number] Stat Exams 07/15/24 13:05 Completed XR chest 1V portable [id number] Routine Exams 07/17/24 09:23 Completed XR chest 1V portable [id number] Routine Exams 07/20/24 13:39 Completed XR chest 1V portable [id number] Urgent Exams 07/15/24 10:35 Completed XR hip BI 3-4V wo/[place] pel [id number] Stat Exams 07/15/24 10:40 Completed XR knee LT 3V* [id number] Stat Exams 07/15/24 10:40 Completed XR knee RT 3V* [id number] Stat Exams 07/15/24 10:40 Completed Pathology: Surgical [PTH] Routine Pth 07/17/24 15:39 [place] [id number] Routine Ultrasound 07/15/24 14:27 Completed CV. echo limited [id number] Routine Ultrasound 07/15/24 14:20 Completed US renal BI* [id number] Routine Ultrasound 07/17/24 14:47 Completed Pending at discharge Category Date Time Status SUPERVIS[employer] request for service Routine Exams 07/19/24 05:00 Taken Complete Blood Count w/Auto AM LABS Lab 07/31/24 04:00 Ordered Comprehensive Metabolic Panel AM LABS Lab 07/31/24 04:00 Ordered Magnesium AM LABS Lab 07/31/24 04:00 Ordered Phosphorus AM LABS Lab 07/31/24 04:00 Ordered Urine Culture Routine Lab 07/28/24 10:56 Results Radiology Impressions Hip/Pelvis X-Ray 07/15/24 10:40 IMPRESSION: No acute findings. Knee X-Ray 07/15/24 10:40 IMPRESSION: No acute osseous pathology. Chest/Abdomen/Pelvis CT 07/15/24 11:39 IMPRESSION: 1. High-grade RIGHT hydroureteronephrosis. Hydronephrosis and hydroureter are new since 2019. Patient has known severe atrophy of the RIGHT kidney. No obstructing calcification is noted in the distal RIGHT ureter. 2. Marked dilatation of the urinary bladder. Relieving the distended urinary bladder may relieve the obstructed RIGHT collecting system. Otherwise possibility of noncalcified stone or mass should be considered causing the obstruction. 3. Ventral abdominal wall hernia contains a loop of transverse colon but no obstruction. 4. Moderate cardiomegaly. 5. No soft tissue hematomas. No acute fractures identified. Cervical Spine X-Ray 07/15/24 13:05 IMPRESSION: No acute cervical spine pathology. Renal Ultrasound 07/17/24 14:47 IMPRESSION: 1. Interval resolution of right hydronephrosis since 07/15/2024. 2. Severely atrophic right kidney. Stable. 3. Normal left kidney. 4. Decompressed urinary bladder with Low catheter in place. Chest X-Ray 07/20/24 13:39 IMPRESSION: No acute findings. Abdomen/Pelvis CT 07/26/24 09:54 IMPRESSION: 1. Acute transverse and descending colitis/diverticulitis with associated diverticular perforation and a small amount of free intra-abdominal air. As an underlying colonic malignancy cannot be entirely excluded, a follow-up examination after a course of treatment is recommended if clinically warranted. 2. Redemonstrated [id number] sized umbilical hernia containing a loop of transverse colon, which appears nonobstructed but mildly inflamed. 3. Diffuse bladder wall thickening, which is suggestive of cystitis in the appropriate clinical setting. 4. Cholelithiasis without evidence of cholecystitis. COMMENTS: 1. For patients with an IVC filter, recommend assessment for a management plan for the patient's IVC filter. If there is no established management plan, recommend referral to an interventional clinician on a nonemergent basis for evaluation. 2. Consistent with the [employer]'s Incidental Findings Committee white paper (J Am Shannon Radiol 2018): Any incidental renal lesion less than 1 cm or classified as too small to characterize, or any incidental cystic renal lesion characterized as simple-appearing, is likely benign. No follow-up imaging is recommended for these lesions per consensus recommendations based on imaging criteria. ADDENDUM: 07/26/24 [id number] COMMENT: THIS REPORT CONTAINS FINDINGS THAT MAY BE CRITICAL TO PATIENT CARE. The exam findings were verbally communicated by me to MARIETTA FREED Microbiology 07/28/24 10:56 Urine,Clean Catch Urine Culture - Preliminary Yeast species 07/20/24 13:55 Urine,Clean Catch Urine Culture - Final Enterococcus faecalis 07/15/24 15:46 Blood Blood Culture - Final NO GROWTH AFTER 5 DAYS 07/15/24 15:41 Blood Blood Culture - Final NO GROWTH AFTER 5 DAYS 07/15/24 13:59 Urine,Clean Catch Urine Culture - Final 07/15/24 13:59 Urine Kidney Bacterial Antigens - Final 07/15/24 13:59 Unknown Source Legionella Urinary Antigen - Final via telephone conference at 3:53 PM NETWORK CONTRACT MANAGER on 07/26/2024. The findings were acknowledged and understood. Limited echocardiogram: CONCLUSIONS Normal left ventricular size, systolic function and wall thickness, with no regional wall motion abnormalities. Left ventricular ejection fraction is estimated at 60 %. Grade I/IV diastolic dysfunction (abnormal relaxation filling pattern), normal to mildly elevated filling pressures. Normal right ventricular size. Severe pulmonary hypertension, RVSP 81.2 mmHg. Moderately increased right atrial size. Moderate aortic valve calcification. Mild to moderate aortic valve stenosis, mean gradient 3.8 mmHg, DAVION 1.6 cm squared. Trace aortic valve regurgitation. There is no pericardial effusion. Right atrial pressure is around 5 mm of mercury. Chinedu Batres MD (Electronically Signed) Final Date: 16 July 2024 20:44 Laboratory Results WBC 5.67 10^3/uL (3.29-11.43) 07/30/24 05:21 RBC 2.88 10^6/uL (3.85-5.65) L 07/30/24 05:21 Hgb 8.00 g/dL (11.27-16.99) L 07/30/24 05:21 Hct 26.5 % (36-47) L 07/30/24 05:21 MCV 92.0 fl (85-98) 07/30/24 05:21 MCH 27.8 pg (27-33) 07/30/24 05:21 MCHC 30.2 g/dL (30-55) 07/30/24 05:21 RDW 19.4 % (12.1-15.1) H 07/30/24 05:21 Plt Count 215 10^3/cmm (157-399) D 07/30/24 05:21 MPV 9.5 fL (7.4-10.4) 07/30/24 05:21 Neut % (Auto) 75.7 % 07/30/24 05:21 Lymph % (Auto) 14.5 % 07/30/24 05:21 [place] % (Auto) 5.1 % 07/30/24 05:21 Eos % (Auto) 3.4 % 07/30/24 05:21 Baso % (Auto) 0.9 % 07/30/24 05:21 Neut # (Auto) 4.30 10^3/uL (1.8-7.7) 07/30/24 05:21 Lymph # (Auto) 0.8 10^3/uL (0.8-4.8) 07/30/24 05:21 [place] # (Auto) 0.3 10^3/uL (0.2-0.9) 07/30/24 05:21 Eos # (Auto) 0.2 10^3/uL (0.0-0.8) 07/30/24 05:21 Baso # (Auto) 0.1 10^3/uL (0.0-0.1) 07/30/24 05:21 Nucleated RBC % (auto) 0 % 07/30/24 05:21 Nucleated RBCs # 0.0 /100WBC 07/30/24 05:21 D-Dimer 0.60 ug/mLFEU (0-0.59) H 07/15/24 10:38 Specimen Type Arterial 07/15/24 10:50 Sample Site Brachial, right 07/15/24 10:50 ABG pH 7.42 (7.35-7.45) 07/15/24 10:50 ABG pCO2 32.6 mmHg (35-45) L 07/15/24 10:50 ABG pO2 55.0 mmHg (80.0-100.0) L 07/15/24 10:50 ABG HCO3 21.1 mmol/L (22-26) L 07/15/24 10:50 ABG O2 Saturation 90.5 07/15/24 10:50 ABG Base Excess -3.1 mmol/L (-2.0-2.0) L 07/15/24 10:50 Zackary Test Pos 07/15/24 10:50 A-a O2 Gradient 7.0 mmHg (5-10) 07/15/24 10:50 Hematocrit 17.9 % (37-47) L 07/15/24 10:50 Hgb O2 Saturation 87.4 % (95-100) L 07/15/24 10:50 Carboxyhemoglobin 2.2 %THgb (0.4-20.1) 07/15/24 10:50 Methemoglobin 1.2 % (0.4-1.5) 07/15/24 10:50 Total Hemoglobin 5.9 g/dL (12-16) L 07/15/24 10:50 Sodium 143.0 mmol/L (131-143) 07/15/24 10:50 Potassium 4.3 mmol/L (3.5-5.0) 07/15/24 10:50 Glucose 135.0 mg/dL (70-115) H 07/15/24 10:50 Ionized Calcium 1.1 mmol/L (1.1-1.4) 07/15/24 10:50 O2 Delivery Device Nc 07/15/24 10:50 O2 Liters/Min 3.0 % 07/15/24 10:50 Corner Cutter Machine Operator ID Broma 07/15/24 10:50 Sodium 133 mmol/L (136-145) L 07/30/24 05:21 Potassium 4.1 mmol/L (3.5-5.1) 07/30/24 05:21 Chloride 100 mmol/L (98-107) 07/30/24 05:21 Carbon Dioxide 28 mmol/L (22-29) 07/30/24 05:21 Anion Gap 9.1 (5-19) 07/30/24 05:21 BUN 23 mg/dL (8-23) 07/30/24 05:21 Creatinine 1.5 mg/dL (0.5-0.9) H 07/30/24 05:21 GFR Calculation Not Reportable 07/30/24 05:21 Glucose 69 mg/dL (65-115) 07/30/24 05:21 POC Glucose 82 mg/dL (70-110) 07/30/24 06:13 Estimat Average Glucose 103 07/16/24 04:26 Hemoglobin A1c 5.2 % (4.0-6.0) 07/16/24 04:26 Calculated Osmolality 278 mOsm/kg (285-295) L 07/30/24 05:21 Lactic Acid 2.2 mmol/L (0.5-2.2) 07/15/24 10:38 Lactic Acid (Sepsis) 1.9 mmol/L (0.5-2.2) 07/15/24 15:41 Calcium 7.4 mg/dL (8.5-10.5) L 07/30/24 05:21 Phosphorus 2.4 mg/dL (2.5-4.5) L 07/30/24 05:21 Magnesium 1.9 mg/dL (1.7-2.3) 07/30/24 05:21 Iron 15 ug/dL (37-145) L 07/15/24 12:32 TIBC 288 mcg/dl 07/15/24 12:32 % Saturation 5.2 % (20-50) L 07/15/24 12:32 Unsat Iron Binding 273 ug/dL (112-347) 07/15/24 12:32 Total Bilirubin 0.3 mg/dL (0.15-1.2) 07/30/24 05:21 AST 16 U/L (0-32) 07/30/24 05:21 ALT 6 U/L (0-33) 07/30/24 05:21 Alkaline Phosphatase 73 U/L (35-105) 07/30/24 05:21 Creatine Kinase 336 U/L (26-192) H* 07/15/24 10:38 Troponin T Baseline 92 ng/L (0-10) H 07/15/24 10:38 Troponin T 120 Minute 84.92 ng/L (0-10) H 07/15/24 12:32 Delta Troponin T -7.08 ABS# (0-10) L 07/15/24 12:32 Troponin T Hi Sens 6Hr 73.96 ng/L (0-10) H 07/15/24 18:56 Troponin T Hi Sens 6Hr Delta -18.04 ng/L (0-12) L 07/15/24 18:56 NT-Pro-B Natriuret Pep 57685 pg/mL (0-450) H 07/15/24 10:38 Total Protein 5.6 g/dL (6.6-8.7) L 07/30/24 05:21 Albumin 2.4 g/dL (3.5-5.2) L 07/30/24 05:21 Globulin 3.2 g/dL (1.3-4.6) 07/30/24 05:21 Triglycerides 72 mg/dL (0-150) 07/16/24 04:26 Cholesterol 112 mg/dL (0-200) 07/16/24 04:26 LDL Cholesterol, Calc 48 mg/dL (50-129) L 07/16/24 04:26 HDL Cholesterol 50 mg/dL (60-100) L 07/16/24 04:26 LDL/HDL Ratio 0.96 RATIO (0.00-3.22) 07/16/24 04:26 Cholesterol/HDL Ratio 2.24 mg/dL (0.0-4.40) 07/16/24 04:26 Vitamin B12 649 pg/mL (232-1245) 07/15/24 12:32 Folate 3.9 ng/mL (4.8-37.3) L 07/16/24 04:26 Procalcitonin 0.21 ng/mL (0-0.5) 07/16/24 04:26 Random Cortisol 16.18 ug/dL (2.47-19.5) 07/20/24 03:23 Urine Color Yellow (Yellow) 07/28/24 10:56 Urine Appearance Cloudy (CLEAR) A 07/28/24 10:56 Urine pH 5.5 (5-7) 07/28/24 10:56 Ur Specific [place] 1.008 (1.005-1.030) 07/28/24 10:56 Urine Protein Trace (Negative) A 07/28/24 10:56 Urine Glucose (UA) Negative (Normal) 07/28/24 10:56 Urine Ketones Negative (Negative) 07/28/24 10:56 Urine Blood 1+ (Negative) A 07/28/24 10:56 Urine Nitrate Negative (Negative) 07/28/24 10:56 Urine Bilirubin Negative (Negative) 07/28/24 10:56 Urine Urobilinogen 0.2 mg/dL (Negative) 07/28/24 10:56 Ur Leukocyte Esterase 3+ (Negative) A 07/28/24 10:56 Urine RBC >100 /hpf (0-2) H 07/28/24 10:56 Urine WBC >100 /hpf (0-5) H 07/28/24 10:56 Ur Squamous Epith Cells 0-5 /hpf (0-5) 07/28/24 10:56 Triple Phos Crystals 5-10 /hpf H 07/15/24 13:59 Amorphous Sediment Not Reportable 07/28/24 10:56 Urine Bacteria Trace /hpf (NONE) 07/28/24 10:56 Hyaline Casts 2.05 /lpf 07/28/24 10:56 Urine Yeast 2+ /hpf H 07/28/24 10:56 Ur Random Sodium 15 mmol/L 07/28/24 10:56 Ur Random Potassium 14 mmol/L 07/28/24 10:56 Ur Random Chloride 15 mmol/L 07/28/24 10:56 Urine Creatinine 26 mg/dL (28-217) L 07/28/24 10:56 SARS-CoV-2 Ag (Rapid) Negative (Negative) 07/26/24 09:50 Blood Type A Positive 07/20/24 08:36 Rho(D) Type Rh positive 07/20/24 08:36 Antibody Screen Negative 07/20/24 08:36 Crossmatch See Detail 07/20/24 08:36 Vitals Last Vital Signs Temp 98.0 F 07/30/24 07:30 Pulse 76 07/30/24 07:39 Resp 18 07/30/24 07:30 BP 109/64 07/30/24 07:30 Pulse Ox 93 07/30/24 07:30 O2 Del Method Nasal Cannula 07/30/24 07:30 O2 Flow Rate 3 07/30/24 07:23 Discharge Plan Discharge Patient Disposition: Xfer SNF Condition: Stable Prescriptions: New furosemide 40 mg Tablet 40 mg PO DAILY@0800 PRN (Reason: swelling) Qty: 15 0RF fluconazole 100 mg Tablet 200 mg PO DAILY Qty: 14 0RF ciprofloxacin HCl 500 mg Tablet 500 mg PO BID@0900,2100 12 Days Qty: 24 0RF folic acid 1 mg Tablet 1 mg PO BID Qty: 60 0RF ipratropium bromide 0.02 % Solution 0.5 mg inhalation Q6H.RESP Qty: 75 0RF levalbuterol HCl 0.63 mg/3 mL Solution For Nebulization 0.63 mg inhalation Q6H.RESP Qty: 75 0RF sucralfate 100 mg/mL Suspension 1 g PO AC&BEDTIME 30 Days Qty: 414 0RF metronidazole 500 mg Tablet 500 mg PO BID 12 Days Qty: 24 0RF pantoprazole [Protonix] 40 mg tablet,delayed release (DR/EC) 40 mg PO QAM Qty: 60 0RF Continued sertraline 50 mg tablet 50 mg PO DAILY potassium chloride 10 mEq tablet extended release 10 meq PO .with bumex Qty: 30 0RF tiotropium bromide [Spiriva with HandiHaler] 18 mcg capsule, w/inhalation device 1 cap inhalation DAILY Qty: 60 3RF Rx Instructions: puncture 1 cap using device; one dose = 2 inhalations albuterol sulfate 90 mcg/actuation HFA aerosol inhaler 2 inh inhalation Q8H PRN (Reason: shortness of breath or wheezing) Qty: 6.7 1RF fluticasone propion-salmeterol [Advair HFA] 45-21 mcg/actuation HFA aerosol inhaler 2 inh INHALATION BID Dulera 100-5 mcg/actuation HFA aerosol inhaler 2 puff INHALATION BID Discontinued Eliquis 5 mg Tablet 2.5 mg PO BID@0900,2100 Qty: 120 3RF diltiazem HCl [Cardizem CD] 120 mg capsule,extended release 24hr 120 mg PO BID Qty: 60 0RF bumetanide 0.5 mg tablet 0.5 mg PO DAILY Discharge Orders: Discharge Order (Routine); Ordered 07/30/24 Ordered By: Rudy Day [facility]errals: [facility] [Outside] Booker Kennedy DO [Physician] - 7-10 days (We have notified your physician's clinic of the need for a follow-up appointment to be scheduled. If you have not heard from them within the next 2 business days, please call them directly. ) Jeff Banegas DO [Primary Care Provider] - 7-10 days Discharge Diet: GI Soft Discharge Activity: Resume usual activity and Increase activity as tolerated Patient Instructions: Ciprofloxacin (By mouth), Metronidazole (By mouth), Diverticulitis (GEN), GI Post Discharge Instructions w/ Anesthesia, Opioid Safety Activity Restrictions/Additional Instructions: Continue GI soft diet for next 2 weeks and advance to regular diet gradually. Follow-up with surgical team within next 1 week. Do not take Eliquis for at least next 2 to 3 weeks at least. Repeat CBC and CMP in 10 days. Follow-up with urologist within next 2 weeks for possible voiding trial. If Low catheter remains in place for more than 1 month it should be replaced. Restrict fluid intake to less than 1500 cc, salt intake to less than 2 g daily. Advised to check his weight daily at home. Is advised that weight today would be the dry weight and if body weight increases by around 5 pounds, patient is to take a dose of Lasix daily till body weight comes down to weight today. If not able to come down to dry body weight in 1 week, then is to call cardiology office for further recommendations. Patient was counseled in detail to take medications regularly as prescribed. Discharge Attestations Time Spent in Discharge Care*: greater than 30 min Specific Discharge Activities: educating patient, discussing with pcp/other providers, discussing with medical case worker/social workers/dc planners, documenting/other paperwork and evaluating patient/reviewing data Status at Discharge: Cognitive status at discharge: cognitively intact , Behavioral status at discharge: cooperative , Functional status at discharge: uses cane/walker , Overall status at discharge: patient is progressing back to baseline Quality Metrics Clinical Quality Measures [ Venous Thromboembolism { Contraindication to Overlap Therapy: Medical contraindication; VTE Discharge Education: Education about anticoagulant therapy/Care Notes given, Education about treatment options/disease process, Medication side effects education, INR/lab monitoring education as applicable, Follow-up arranged, Other; Deep Vein Thrombosis/Pulmonary Embolism Present on Admission: Yes;}] Coding Level of Care Code 21283 Total time (in minutes) for Discharge: 80 Diagnoses ZACK (acute kidney injury) N17.9 CKD (chronic kidney disease) N18.9 Goals of care, counseling/discussion Z71.89 Hypotension due to hypovolemia E86.1 Hypotension type: hypotension due to hypovolemia Cardiogenic shock R57.0 Pulmonary hypertension I27.20 Mild aortic stenosis I35.0 Chronic anticoagulation Z79.01 Deep vein thrombosis (DVT) of left lower extremity, unspecified chronicity, unspecified vein I82.402 Affected thrombotic vein of extremity: unspecified vein of extremity Chronicity: unspecified S/P IVC filter Z95.828 Upper GI bleed K92.2 Ischemic colitis K55.9 Diverticulitis of intestine with perforation without abscess K57.80 Hydronephrosis N13.30 Urinary retention R33.9 UTI (urinary tract infection) N39.0 Anemia D64.9 Anemia type: iron deficiency Acute blood loss anemia D62 COPD (chronic obstructive pulmonary disease) J44.9 Acute hypoxemic respiratory failure J96.01 Generalized weakness R53.1
[2024-07-30 11:35] LABS: Glucose Point of Care 103 mg/dL (70-110)
[2024-07-30 12:21] LABS: SARS Covid-2 Antigen Negative (Negative)
--- NOTE | 2024-07-30 12:29 | PC.NURSE ---
Report: Attempted to call report at [facility], sent to [employer].
--- NOTE | 2024-07-30 13:39 | PC.NURSE ---
Report: Report called to Ron[facility] Ching.
== END 2024-07-30 14:13 | disposition skilled nursing facility (03) | DRG 377 ==
LOC: ER 10:55 → ICU 14:10 → CSU 07-19 16:59 → ICU 07-20 17:38 → MEDSURG 07-23 16:29
PROVIDERS: Emergency Medicine; Internal Medicine; Internal Medicine Cardiovascular Disease; Internal Medicine Nephrology; Surgery; Admitting Provider Student in an Organized Health Care Education/Training Program; Emergency Provider Physician Assistant; PCP Internal Medicine; Visit Provider Student in an Organized Health Care Education/Training Program
PROC: 0DJ08ZZ Inspection of Upper Intestinal Tract, Via Natural or Artificial Opening Endoscopic (ICD-10-PCS; CPT 43235; principal; 2024-07-17 13:30)
PROC: 0DJD8ZZ Inspection of Lower Intestinal Tract, Via Natural or Artificial Opening Endoscopic (ICD-10-PCS; CPT 45378; 2024-07-17 13:30)
PROC: 06H03DZ Insertion of Intraluminal Device into Inferior Vena Cava, Percutaneous Approach (ICD-10-PCS; CPT 37191; principal; 2024-07-19 06:30)
DX: K57.21 Diverticulitis of large intestine with perforation and abscess with bleeding (principal); I26.99 Other pulmonary embolism without acute cor pulmonale; K55.039 Acute (reversible) ischemia of large intestine, extent unspecified; R57.1 Hypovolemic shock; J96.02 Acute respiratory failure with hypercapnia; R57.0 Cardiogenic shock; J96.21 Acute and chronic respiratory failure with hypoxia; I82.431 Acute embolism and thrombosis of right popliteal vein; I82.512 Chronic embolism and thrombosis of left femoral vein; I13.0 Hypertensive heart and chronic kidney disease with heart failure and stage 1 through stage 4 chronic kidney disease, or unspecified chronic kidney disease; I50.32 Chronic diastolic (congestive) heart failure; N17.9 Acute kidney failure, unspecified; D62 Acute posthemorrhagic anemia; N39.0 Urinary tract infection, site not specified; N13.30 Unspecified hydronephrosis; R19.5 Other fecal abnormalities; Z11.52 Encounter for screening for COVID-19; N18.9 Chronic kidney disease, unspecified; E11.22 Type 2 diabetes mellitus with diabetic chronic kidney disease; E11.65 Type 2 diabetes mellitus with hyperglycemia; I27.20 Pulmonary hypertension, unspecified; J44.9 Chronic obstructive pulmonary disease, unspecified; Z99.81 Dependence on supplemental oxygen; W18.30XA Fall on same level, unspecified, initial encounter; I95.9 Hypotension, unspecified; B95.2 Enterococcus as the cause of diseases classified elsewhere; I35.0 Nonrheumatic aortic (valve) stenosis; K46.9 Unspecified abdominal hernia without obstruction or gangrene; K57.30 Diverticulosis of large intestine without perforation or abscess without bleeding; R33.9 Retention of urine, unspecified; D63.1 Anemia in chronic kidney disease; Z79.51 Long term (current) use of inhaled steroids; Z79.01 Long term (current) use of anticoagulants; D50.9 Iron deficiency anemia, unspecified; Z88.0 Allergy status to penicillin; Z86.711 Personal history of pulmonary embolism; Z87.440 Personal history of urinary (tract) infections; Z82.3 Family history of stroke
CPT/HCPCS: 36415; 36416; 36430; 36600; 37191; 43235; 45380; 51702; 51798; 71045; 71250; 72040; 73522; 73562; 74176; 74177; 76770; 80048; 80051; 80053; 80061; 81001; 82330; 82436; 82533; 82550; 82570; 82607; 82746; 82805; 82962; 83036; 83540; 83550; 83605; 83735; 83880; 84100; 84133; 84145; 84300; 84484; 85014; 85018; 85025; 85378; 86403; 86850; 86900; 86920; 87040; 87077; 87086; 87106; 87186; 87426; 87449; 88305; 92526; 92610; 93005; 93308; 93970; 94640; 94664; 96361; 96372; 96374; 96375; 96376; 97110; 97116; 97163; 97167; 97530; 97535; 99152; 99153; 99285; 99291; C1769; C1880; C1887; C1894; J0696; J0744; J1644; J1756; J1815; J1940; J2060; J2185; J2250; J2270; J2405; J2470; J2704; J2919; J3010; J3475; J3480; J3490; J7030; J7050; J7614; J7626; J7644; P9016; P9040; Q3014; Q9967

== ENCOUNTER 2024-08-09 04:23 | Emergency (ER) | payer MEDICARE, SELFPAY ==
[2024-08-09] VITALS (14 sets, daily range): BP systolic 85–141; BP diastolic 44–90; PULSE 85–117; RESP 14–24; TEMP 36.4; O2SAT 91–100; BMI 30.2
--- NOTE | 2024-08-09 04:32 | ED_ITS ---
Documented by User: Maribel Shetty MD 08/09/24 04:36 HPI - Syncope 2 General: Chief Complaint: Syncope Stated Complaint: Syncope Time Seen by Provider: 08/09/24 04:23 History of Present Illness: 79-year-old female with history of DVT, CKD, COPD, chronic indwelling Low catheter [facility] with what sounds like a vasovagal episode. She had 1 yesterday as well. She says she had gone to the bathroom and became very lightheaded. She did not completely pass out. [facility] reported that her blood pressure was in the 60s systolic. She says she feels fine now. She says the episode the other day was worse. However she was not transported to the emergency room that day. She denies any chest pain. No abdominal pain. No nausea or vomiting Related Data Home Medications Medication Instructions Recorded Confirmed sertraline 50 mg tablet 50 mg PO DAILY 03/16/24 07/15/24 fluticasone propionate 45 2 inh inhalation BID 07/15/24 07/15/24 mcg-salmeterol 21 mcg/actuation HFA inhaler (Advair HFA) mometasone-formoterol HFA 100 2 puff inhalation BID 07/15/24 07/15/24 mcg-5 mcg/actuation aerosol inhaler (Dulera) Previous Rx's Medication Instructions Recorded albuterol sulfate 90 mcg/actuation 2 inh inhalation Q8H PRN shortness 03/22/24 aerosol inhaler of breath or wheezing #6.7 grams potassium chloride 10 mEq 10 meq PO .with bumex every otherd 03/22/24 tablet,extended release day w bumex #30 tabs tiotropium bromide 18 mcg capsule 1 cap inhalation DAILY #60 03/22/24 with inhalation device (Spiriva inhalations with HandiHaler) ciprofloxacin HCl 500 mg tablet 500 mg PO BID@0900,2100 12 days 07/30/24 #24 tabs fluconazole 100 mg tablet 200 mg (2 x 100 mg) PO DAILY #14 07/30/24 tabs folic acid 1 mg tablet 1 mg PO BID #60 tabs 07/30/24 furosemide 40 mg tablet 40 mg PO DAILY@0800 PRN swelling 07/30/24 #15 tabs ipratropium bromide 0.02 % 0.5 mg (2.5 mL) inhalation 07/30/24 solution for inhalation Q6H.RESP #75 mL levalbuterol HCl 0.63 mg/3 mL 0.63 mg (3 mL) inhalation Q6H.RESP 07/30/24 solution for nebulization #75 mL metronidazole 500 mg tablet 500 mg PO BID 12 days #24 tabs 07/30/24 pantoprazole 40 mg tablet,delayed 40 mg PO QAM #60 tabs 07/30/24 release (Protonix) sucralfate 100 mg/mL oral 1 g (10 mL) PO AC&BEDTIME 30 days 07/30/24 suspension #414 mL Allergies Allergy/AdvReac Type Severity Reaction Status Date / Time penicillin G Allergy Severe ALGY-Swell Verified 08/09/24 04:33 Lip/Tongue/Throat Penicillins Allergy Unknown Verified 08/09/24 04:33 Review of Systems 2 Narrative: Constitutional symptoms: Negative except as documented in HPI. Skin symptoms: Negative except as documented in HPI. Eye symptoms: Negative except as documented in HPI. ENMT symptoms: Negative except as documented in HPI. Respiratory symptoms: Negative except as documented in HPI. Cardiovascular symptoms: Negative except as documented in HPI. Gastrointestinal symptoms: Negative except as documented in HPI. Genitourinary symptoms: Negative except as documented in HPI. Musculoskeletal symptoms: Negative except as documented in HPI. Neurologic symptoms: Negative except as documented in HPI. Psychiatric symptoms: Negative except as documented in HPI. Endocrine symptoms: Negative except as documented in HPI. PFSH ED 2 PFSH: Medical History (Updated 08/09/24 @ 09:22 by Narendra Pate DO) Mild aortic stenosis Urinary tract infection Deep vein thrombosis, lower left extremity 03/17- Nonocclusive thrombus distal left superficial femoral vein and popliteal vein. CKD (chronic kidney disease) Acute hypoxemic respiratory failure COPD (chronic obstructive pulmonary disease) Acute on chronic renal insufficiency Congestive heart failure Acute exacerbation of chronic obstructive airways disease Leukoplakia of bladder Diabetes mellitus History of recurrent UTI (urinary tract infection) Surgical History (Updated 07/31/24 @ 00:00 by ANDREA Barth) History of tonsillectomy and adenoidectomy H/O tubal ligation S/P IVC filter 07/19/2024 Family History Mother , AT AGE 91 Stroke Father , AT 99 No problems noted. Social History Smoking and tobacco/nicotine status: never used tobacco/nicotine Alcohol intake: never Marital status: / Current occupational status: retired Physical Exam 2 Narrative: EXAM NARRATIVE: General: Alert, no acute distress. Skin: Warm, dry. Head: Normocephalic, atraumatic. Neck: Supple, trachea midline. Eye: Extraocular movements are intact. Ears, nose, mouth and throat: mucosa moist. Cardiovascular: Regular, Normal peripheral perfusion. Respiratory: Lungs are clear to auscultation, respirations are non-labored, breath sounds are equal, Symmetrical chest wall expansion. Gastrointestinal: Soft, Nontender, Non distended Genitourinary: Low catheter in place. Musculoskeletal: Normal ROM, no deformity. Neurological: Alert and oriented, No focal neurological deficit observed. Psychiatric: Cooperative, appropriate mood & affect. Course 2 Vital Signs: Vital signs: Vital Signs Temperature 97.6 F 08/09/24 04:30 Pulse Rate 91 08/09/24 11:55 Respiratory Rate 21 H 08/09/24 09:00 Blood Pressure 114/90 08/09/24 11:55 Pulse Oximetry 95 08/09/24 11:55 Oxygen Delivery Me thod Nasal Cannula 08/09/24 04:30 Oxygen Flow Rate 5 08/09/24 04:30 MDM - Syncope Medical Decision Making Medical decision making: Differential diagnosis including but not limited to and based on the above HPI, review of systems and physical exam in this patient with syncope: Vasovagal, orthostatics hypotension, cardiac dysrhythmia, myocardial infarction, infection and hypotension, EKG: Time 4:29 AM. Rate 104. Sinus tachycardia, nonspecific ST-T changes, no ectopy, normal OK & QRS intervals, This was reviewed and interpreted by myself the ER physician at 4:32 AM. Patient care transitioned to Dr. Pate at shift change Lab Data 08/09/24 05:03 08/09/24 05:03 Radiology Impressions Chest X-Ray 08/09/24 04:47 IMPRESSION: Mild cardiomegaly with vascular congestion. Laboratory Results WBC 5.41 10^3/uL (3.29-11.43) 08/09/24 05:03 RBC 3.30 10^6/uL (3.85-5.65) L 08/09/24 05:03 Hgb 9.40 g/dL (11.27-16.99) L 08/09/24 05:03 Hct 31.4 % (36-47) L 08/09/24 05:03 MCV 95.2 fl (85-98) 08/09/24 05:03 MCH 28.5 pg (27-33) 08/09/24 05:03 MCHC 29.9 g/dL (30-55) L 08/09/24 05:03 RDW 20.5 % (12.1-15.1) H 08/09/24 05:03 Plt Count 202 10^3/cmm (157-399) 08/09/24 05:03 MPV 9.4 fL (7.4-10.4) 08/09/24 05:03 Neut % (Auto) 70.2 % 08/09/24 05:03 Lymph % (Auto) 16.3 % 08/09/24 05:03 [place] % (Auto) 5.9 % 08/09/24 05:03 Eos % (Auto) 6.1 % 08/09/24 05:03 Baso % (Auto) 1.1 % 08/09/24 05:03 Neut # (Auto) 3.80 10^3/uL (1.8-7.7) 08/09/24 05:03 Lymph # (Auto) 0.9 10^3/uL (0.8-4.8) 08/09/24 05:03 [place] # (Auto) 0.3 10^3/uL (0.2-0.9) 08/09/24 05:03 Eos # (Auto) 0.3 10^3/uL (0.0-0.8) 08/09/24 05:03 Baso # (Auto) 0.1 10^3/uL (0.0-0.1) 08/09/24 05:03 Nucleated RBC % (auto) 0 % 08/09/24 05:03 Nucleated RBCs # 0.0 /100WBC 08/09/24 05:03 Sodium 136 mmol/L (136-145) 08/09/24 05:03 Potassium 4.8 mmol/L (3.5-5.1) 08/09/24 05:03 Chloride 100 mmol/L (98-107) 08/09/24 05:03 Carbon Dioxide 25 mmol/L (22-29) 08/09/24 05:03 Anion Gap 15.8 (5-19) 08/09/24 05:03 BUN 14 mg/dL (8-23) 08/09/24 05:03 Creatinine 2.2 mg/dL (0.5-0.9) H 08/09/24 05:03 GFR Calculation Not Reportable 08/09/24 05:03 Glucose 128 mg/dL (65-115) H 08/09/24 05:03 Calculated Osmolality 284 mOsm/kg (285-295) L 08/09/24 05:03 Calcium 8.4 mg/dL (8.5-10.5) L 08/09/24 05:03 Total Bilirubin 0.2 mg/dL (0.15-1.2) 08/09/24 05:03 AST 15 U/L (0-32) 08/09/24 05:03 ALT 6 U/L (0-33) 08/09/24 05:03 Alkaline Phosphatase 71 U/L (35-105) 08/09/24 05:03 Troponin T Baseline 97 ng/L (0-10) H 08/09/24 05:03 Troponin T 120 Minute 101.1 ng/L (0-10) H 08/09/24 06:53 Delta Troponin T 4.1 ABS# (0-10) 08/09/24 06:53 NT-Pro-B Natriuret Pep 43460 pg/mL (0-450) H 08/09/24 05:03 Total Protein 6.3 g/dL (6.6-8.7) L 08/09/24 05:03 Albumin 3.0 g/dL (3.5-5.2) L 08/09/24 05:03 Globulin 3.3 g/dL (1.3-4.6) 08/09/24 05:03 Urine Color Yellow (Yellow) 08/09/24 06:28 Urine Appearance Cloudy (CLEAR) A 08/09/24 06:28 Urine pH 5.5 (5-7) 08/09/24 06:28 Ur Specific [place] 1.006 (1.005-1.030) 08/09/24 06:28 Urine Protein Neg (Negative) 08/09/24 06:28 Urine Glucose (UA) Norm (Normal) 08/09/24 06:28 Urine Ketones Negative (Negative) 08/09/24 06:28 Urine Blood Neg (Negative) 08/09/24 06:28 Urine Nitrate Negative (Negative) 08/09/24 06:28 Urine Bilirubin Neg (Negative) 08/09/24 06:28 Urine Urobilinogen 0.2 mg/dL (Negative) 08/09/24 06:28 Ur Leukocyte Esterase 3+ (Negative) H 08/09/24 06:28 Urine RBC 0-2 /hpf (0-2) 08/09/24 06:28 Urine WBC 51-100 /hpf (0-5) H 08/09/24 06:28 Ur Squamous Epith Cells 11-20 /hpf (0-5) 08/09/24 06:28 Amorphous Sediment Not Reportable 08/09/24 06:28 Urine Bacteria None seen /hpf (NONE) 08/09/24 06:28 Hyaline Casts 11.97 /lpf 08/09/24 06:28 Discharge Plan Discharge Patient Disposition: Home Clinical Impression: Syncope due to orthostatic hypotension, CHF (congestive heart failure) Condition: Stable Prescriptions: No Action sertraline 50 mg tablet 50 mg PO DAILY potassium chloride 10 mEq tablet extended release 10 meq PO .with bumex Qty: 30 0RF tiotropium bromide [Spiriva with HandiHaler] 18 mcg capsule, w/inhalation device 1 cap inhalation DAILY Qty: 60 3RF Rx Instructions: puncture 1 cap using device; one dose = 2 inhalations albuterol sulfate 90 mcg/actuation HFA aerosol inhaler 2 inh inhalation Q8H PRN (Reason: shortness of breath or wheezing) Qty: 6.7 1RF fluticasone propion-salmeterol [Advair HFA] 45-21 mcg/actuation HFA aerosol inhaler 2 inh INHALATION BID Dulera 100-5 mcg/actuation HFA aerosol inhaler 2 puff INHALATION BID furosemide 40 mg Tablet 40 mg PO DAILY@0800 PRN (Reason: swelling) Qty: 15 0RF fluconazole 100 mg Tablet 200 mg PO DAILY Qty: 14 0RF ciprofloxacin HCl 500 mg Tablet 500 mg PO BID@0900,2100 12 Days Qty: 24 0RF folic acid 1 mg Tablet 1 mg PO BID Qty: 60 0RF ipratropium bromide 0.02 % Solution 0.5 mg inhalation Q6H.RESP Qty: 75 0RF levalbuterol HCl 0.63 mg/3 mL Solution For Nebulization 0.63 mg inhalation Q6H.RESP Qty: 75 0RF sucralfate 100 mg/mL Suspension 1 g PO AC&BEDTIME 30 Days Qty: 414 0RF metronidazole 500 mg Tablet 500 mg PO BID 12 Days Qty: 24 0RF pantoprazole [Protonix] 40 mg tablet,delayed release (DR/EC) 40 mg PO QAM Qty: 60 0RF Discharge Orders: Discharge ED (Routine); Ordered 08/09/24 Ordered By: Narendra Pate Referrals: Jeff Banegas DO [Primary Care Provider] - Patient Instructions: Opioid Safety, Pain Management Activity Restrictions/Additional Instructions: Thank you for choosing [facility] for your healthcare needs today. It is very important that you follow up as instructed or that you return to the Emergency Department should you have concerns or if your condition changes or worsens in any way. You were seen in the emergency room this morning after syncopal episode. This is likely caused by orthostatic hypotension (blood pressure drop when you stand.). This is due in part due to your history of congestive heart failure as well as some the medications that you take. You were given a small fluid bolus in the emergency room. [facility] continue your current medications. Sign Out Sign Out Data: Patient Sign Out occurred on 08/09/24 at 05:23. Patient's care was discussed, and care was transferred from Maribel Shetty MD to Narendra Pate DO. Coding Level of Care Code ED Brine Room Laborer for Chg Fwd Documented by User: Narendra Pate DO 08/09/24 16:53 HPI - Syncope 2 General: Chief Complaint: Syncope Stated Complaint: Syncope Time Seen by Provider: 08/09/24 04:23 Related Data Home Medications Medication Instructions Recorded Confirmed sertraline 50 mg tablet 50 mg PO DAILY 03/16/24 07/15/24 fluticasone propionate 45 2 inh inhalation BID 07/15/24 07/15/24 mcg-salmeterol 21 mcg/actuation HFA inhaler (Advair HFA) mometasone-formoterol HFA 100 2 puff inhalation BID 07/15/24 07/15/24 mcg-5 mcg/actuation aerosol inhaler (Dulera) Previous Rx's Medication Instructions Recorded albuterol sulfate 90 mcg/actuation 2 inh inhalation Q8H PRN shortness 03/22/24 aerosol inhaler of breath or wheezing #6.7 grams potassium chloride 10 mEq 10 meq PO .with bumex every otherd 03/22/24 tablet,extended release day w bumex #30 tabs tiotropium bromide 18 mcg capsule 1 cap inhalation DAILY #60 03/22/24 with inhalation device (Spiriva inhalations with HandiHaler) ciprofloxacin HCl 500 mg tablet 500 mg PO BID@0900,2100 12 days 07/30/24 #24 tabs fluconazole 100 mg tablet 200 mg (2 x 100 mg) PO DAILY #14 07/30/24 tabs folic acid 1 mg tablet 1 mg PO BID #60 tabs 07/30/24 furosemide 40 mg tablet 40 mg PO DAILY@0800 PRN swelling 07/30/24 #15 tabs ipratropium bromide 0.02 % 0.5 mg (2.5 mL) inhalation 07/30/24 solution for inhalation Q6H.RESP #75 mL levalbuterol HCl 0.63 mg/3 mL 0.63 mg (3 mL) inhalation Q6H.RESP 07/30/24 solution for nebulization #75 mL metronidazole 500 mg tablet 500 mg PO BID 12 days #24 tabs 07/30/24 pantoprazole 40 mg tablet,delayed 40 mg PO QAM #60 tabs 07/30/24 release (Protonix) sucralfate 100 mg/mL oral 1 g (10 mL) PO AC&BEDTIME 30 days 07/30/24 suspension #414 mL Allergies Allergy/AdvReac Type Severity Reaction Status Date / Time penicillin G Allergy Severe ALGY-Swell Verified 08/09/24 04:33 Lip/Tongue/Throat Penicillins Allergy Unknown Verified 08/09/24 04:33 [facility] ED 2 PFS: Medical History (Updated 08/09/24 @ 09:22 by Narendra Pate DO) Mild aortic stenosis Urinary tract infection Deep vein thrombosis, lower left extremity 03/17- Nonocclusive thrombus distal left superficial femoral vein and popliteal vein. CKD (chronic kidney disease) Acute hypoxemic respiratory failure COPD (chronic obstructive pulmonary disease) Acute on chronic renal insufficiency Congestive heart failure Acute exacerbation of chronic obstructive airways disease Leukoplakia of bladder Diabetes mellitus History of recurrent UTI (urinary tract infection) Surgical History (Updated 07/31/24 @ 00:00 by ANDREA Barth) History of tonsillectomy and adenoidectomy H/O tubal ligation S/P IVC filter 07/19/2024 Family History Mother , AT AGE 91 Stroke Father , AT 99 No problems noted. Social History Smoking and tobacco/nicotine status: never used tobacco/nicotine Alcohol intake: never Marital status: / Current occupational status: retired Course 2 Vital Signs: Vital signs: Vital Signs Temperature 97.6 F 08/09/24 04:30 Pulse Rate 91 08/09/24 11:55 Respiratory Rate 21 H 08/09/24 09:00 Blood Pressure 114/90 08/09/24 11:55 Pulse Oximetry 95 08/09/24 11:55 Oxygen Delivery Me thod Nasal Cannula 08/09/24 04:30 Oxygen Flow Rate 5 08/09/24 04:30 MDM - Syncope Medical Decision Making Medical decision making: Differential diagnosis including but not limited to and based on the above HPI, review of systems and physical exam in this patient with syncope: Vasovagal, orthostatics hypotension, cardiac dysrhythmia, myocardial infarction, infection and hypotension, EKG: Time 4:29 AM. Rate 104. Sinus tachycardia, nonspecific ST-T changes, no ectopy, normal OK & QRS intervals, This was reviewed and interpreted by myself the ER physician at 4:32 AM. Patient care transitioned to Dr. Pate at shift change Care assumed from Dr. Shetty at change of shift patient has nonischemic cardiomyopathy she is given a small fluid bolus continues to remain orthostatic. She has had problems with hypotension in the past. Unfortunately given orthostasis I do not think any amount of fluid will help this without putting her no fluid overload. When talked to her she does not get up or around very much she is requires assistance. Will discharge her to penitentiary continue her current medications. Medical Records I reviewed the patient's medical records. Lab Data I reviewed the patient's lab results. 08/09/24 05:03 08/09/24 05:03 Radiology Impressions Chest X-Ray 08/09/24 04:47 IMPRESSION: Mild cardiomegaly with vascular congestion. Laboratory Results WBC 5.41 10^3/uL (3.29-11.43) 08/09/24 05:03 RBC 3.30 10^6/uL (3.85-5.65) L 08/09/24 05:03 Hgb 9.40 g/dL (11.27-16.99) L 08/09/24 05:03 Hct 31.4 % (36-47) L 08/09/24 05:03 MCV 95.2 fl (85-98) 08/09/24 05:03 MCH 28.5 pg (27-33) 08/09/24 05:03 MCHC 29.9 g/dL (30-55) L 08/09/24 05:03 RDW 20.5 % (12.1-15.1) H 08/09/24 05:03 Plt Count 202 10^3/cmm (157-399) 08/09/24 05:03 MPV 9.4 fL (7.4-10.4) 08/09/24 05:03 Neut % (Auto) 70.2 % 08/09/24 05:03 Lymph % (Auto) 16.3 % 08/09/24 05:03 [place] % (Auto) 5.9 % 08/09/24 05:03 Eos % (Auto) 6.1 % 08/09/24 05:03 Baso % (Auto) 1.1 % 08/09/24 05:03 Neut # (Auto) 3.80 10^3/uL (1.8-7.7) 08/09/24 05:03 Lymph # (Auto) 0.9 10^3/uL (0.8-4.8) 08/09/24 05:03 [place] # (Auto) 0.3 10^3/uL (0.2-0.9) 08/09/24 05:03 Eos # (Auto) 0.3 10^3/uL (0.0-0.8) 08/09/24 05:03 Baso # (Auto) 0.1 10^3/uL (0.0-0.1) 08/09/24 05:03 Nucleated RBC % (auto) 0 % 08/09/24 05:03 Nucleated RBCs # 0.0 /100WBC 08/09/24 05:03 Sodium 136 mmol/L (136-145) 08/09/24 05:03 Potassium 4.8 mmol/L (3.5-5.1) 08/09/24 05:03 Chloride 100 mmol/L (98-107) 08/09/24 05:03 Carbon Dioxide 25 mmol/L (22-29) 08/09/24 05:03 Anion Gap 15.8 (5-19) 08/09/24 05:03 BUN 14 mg/dL (8-23) 08/09/24 05:03 Creatinine 2.2 mg/dL (0.5-0.9) H 08/09/24 05:03 GFR Calculation Not Reportable 08/09/24 05:03 Glucose 128 mg/dL (65-115) H 08/09/24 05:03 Calculated Osmolality 284 mOsm/kg (285-295) L 08/09/24 05:03 Calcium 8.4 mg/dL (8.5-10.5) L 08/09/24 05:03 Total Bilirubin 0.2 mg/dL (0.15-1.2) 08/09/24 05:03 AST 15 U/L (0-32) 08/09/24 05:03 ALT 6 U/L (0-33) 08/09/24 05:03 Alkaline Phosphatase 71 U/L (35-105) 08/09/24 05:03 Troponin T Baseline 97 ng/L (0-10) H 08/09/24 05:03 Troponin T 120 Minute 101.1 ng/L (0-10) H 08/09/24 06:53 Delta Troponin T 4.1 ABS# (0-10) 08/09/24 06:53 NT-Pro-B Natriuret Pep 05508 pg/mL (0-450) H 08/09/24 05:03 Total Protein 6.3 g/dL (6.6-8.7) L 08/09/24 05:03 Albumin 3.0 g/dL (3.5-5.2) L 08/09/24 05:03 Globulin 3.3 g/dL (1.3-4.6) 08/09/24 05:03 Urine Color Yellow (Yellow) 08/09/24 06:28 Urine Appearance Cloudy (CLEAR) A 08/09/24 06:28 Urine pH 5.5 (5-7) 08/09/24 06:28 Ur Specific [place] 1.006 (1.005-1.030) 08/09/24 06:28 Urine Protein Neg (Negative) 08/09/24 06:28 Urine Glucose (UA) Norm (Normal) 08/09/24 06:28 Urine Ketones Negative (Negative) 08/09/24 06:28 Urine Blood Neg (Negative) 08/09/24 06:28 Urine Nitrate Negative (Negative) 08/09/24 06:28 Urine Bilirubin Neg (Negative) 08/09/24 06:28 Urine Urobilinogen 0.2 mg/dL (Negative) 08/09/24 06:28 Ur Leukocyte Esterase 3+ (Negative) H 08/09/24 06:28 Urine RBC 0-2 /hpf (0-2) 08/09/24 06:28 Urine WBC 51-100 /hpf (0-5) H 08/09/24 06:28 Ur Squamous Epith Cells 11-20 /hpf (0-5) 08/09/24 06:28 Amorphous Sediment Not Reportable 08/09/24 06:28 Urine Bacteria None seen /hpf (NONE) 08/09/24 06:28 Hyaline Casts 11.97 /lpf 08/09/24 06:28 All radiology interpretation(s) finalized by discharge Discharge Plan Discharge Patient Disposition: Home Clinical Impression: Syncope due to orthostatic hypotension, CHF (congestive heart failure) Condition: Stable Prescriptions: No Action sertraline 50 mg tablet 50 mg PO DAILY potassium chloride 10 mEq tablet extended release 10 meq PO .with bumex Qty: 30 0RF tiotropium bromide [Spiriva with HandiHaler] 18 mcg capsule, w/inhalation device 1 cap inhalation DAILY Qty: 60 3RF Rx Instructions: puncture 1 cap using device; one dose = 2 inhalations albuterol sulfate 90 mcg/actuation HFA aerosol inhaler 2 inh inhalation Q8H PRN (Reason: shortness of breath or wheezing) Qty: 6.7 1RF fluticasone propion-salmeterol [Advair HFA] 45-21 mcg/actuation HFA aerosol inhaler 2 inh INHALATION BID Dulera 100-5 mcg/actuation HFA aerosol inhaler 2 puff INHALATION BID furosemide 40 mg Tablet 40 mg PO DAILY@0800 PRN (Reason: swelling) Qty: 15 0RF fluconazole 100 mg Tablet 200 mg PO DAILY Qty: 14 0RF ciprofloxacin HCl 500 mg Tablet 500 mg PO BID@0900,2100 12 Days Qty: 24 0RF folic acid 1 mg Tablet 1 mg PO BID Qty: 60 0RF ipratropium bromide 0.02 % Solution 0.5 mg inhalation Q6H.RESP Qty: 75 0RF levalbuterol HCl 0.63 mg/3 mL Solution For Nebulization 0.63 mg inhalation Q6H.RESP Qty: 75 0RF sucralfate 100 mg/mL Suspension 1 g PO AC&BEDTIME 30 Days Qty: 414 0RF metronidazole 500 mg Tablet 500 mg PO BID 12 Days Qty: 24 0RF pantoprazole [Protonix] 40 mg tablet,delayed release (DR/EC) 40 mg PO QAM Qty: 60 0RF Discharge Orders: Discharge ED (Routine); Ordered 08/09/24 Ordered By: Narendra Pate Referrals: Jeff Banegas DO [Primary Care Provider] - Patient Instructions: Opioid Safety, Pain Management Activity Restrictions/Additional Instructions: Thank you for choosing [facility] for your healthcare needs today. It is very important that you follow up as instructed or that you return to the Emergency Department should you have concerns or if your condition changes or worsens in any way. You were seen in the emergency room this morning after syncopal episode. This is likely caused by orthostatic hypotension (blood pressure drop when you stand.). This is due in part due to your history of congestive heart failure as well as some the medications that you take. You were given a small fluid bolus in the emergency room. Will [facility] back to the [facility]it[facility] continue your current medications. Sign Out Sign Out Data: Patient Sign Out occurred on 08/09/24 at 05:23. Patient's care was discussed, and care was transferred from Maribel Shetty MD to Narendra Pate DO. Coding Level of Care Code ED Brine Room Laborer for Macarena Giang
--- NOTE | 2024-08-09 04:47 | XRR_ITS ---
PROCEDURE INFORMATION: Exam: XR Chest Exam date and time: 08/09/2024 4:47 AM Age: 79 years old Clinical indication: Shortness of breath; Additional info: Palpitations TECHNIQUE: Imaging protocol: Radiologic exam of the chest. Views: 1 view. COMPARISON: CR (CHEST, ) 07/20/2024 1:56 PM FINDINGS: Lungs: No infiltrate. Pleural spaces: Unremarkable. No pleural effusion. No pneumothorax. Heart/Mediastinum: There is mild cardiomegaly with vascular congestion. Bones/joints: Unremarkable. XR/XR chest 1V portable [id number] IMPRESSION: Mild cardiomegaly with vascular congestion.
[2024-08-09 05:07] LABS: Basophils # 0.1 10^3/uL (0.0-0.1); Basophils % 1.1 %; Eosinophils # 0.3 10^3/uL (0.0-0.8); Eosinophils % 6.1 %; Hematocrit 31.4 % (36-47); Lymphocytes # 0.9 10^3/uL (0.8-4.8); Lymphocytes % 16.3 %; Mean Corpuscular HGB Conc 29.9 g/dL (30-55); Mean Corpuscular Hemoglobin 28.5 pg (27-33); Mean Corpuscular Volume 95.2 fl (85-98); Mean Platelet Volume 9.4 fL (7.4-10.4); Monocytes # 0.3 10^3/uL (0.2-0.9); Monocytes % 5.9 %; Neutrophils % 70.2 %; Nucleated Red Blood Cells % 0 %; Platelet Count 202 10^3/cmm (157-399); Red Cell Distribution Width 20.5 % (12.1-15.1); White Blood Count 5.41 10^3/uL (3.29-11.43)
[2024-08-09 05:27] LABS: Troponin(5th) Baseline 97 ng/L (0-10)
[2024-08-09 05:28] LABS: Alanine Aminotransferase 6 U/L (0-33); Alkaline Phosphatase 71 U/L (35-105); Anion Gap 15.8 (5-19); Aspartate Amino Transferase 15 U/L (0-32); Blood Urea Nitrogen 14 mg/dL (8-23); Calcium 8.4 mg/dL (8.5-10.5); Carbon Dioxide 25 mmol/L (22-29); Chloride 100 mmol/L (98-107); Creatinine Clr Calc Pharmacy 19.6392; Globulin 3.3 g/dL (1.3-4.6); Glucose 128 mg/dL (65-115); Osmolality Calculated 284 mOsm/kg (285-295); Potassium 4.8 mmol/L (3.5-5.1); Sodium 136 mmol/L (136-145); Total Bilirubin 0.2 mg/dL (0.15-1.2); Total Protein 6.3 g/dL (6.6-8.7)
[2024-08-09] MEDS: sodium chloride 0.9% 500 ML IV (06:08)
[2024-08-09 06:24] LABS: NT Pro B Type Natriuretic Pept 17410 pg/mL (0-450)
[2024-08-09 06:40] LABS: Bacteria Urine None Seen /hpf; Hyaline Casts Urine 11.97 /lpf; RBC Urine 0-2 /hpf (0-2); WBC Urine 51-100 /hpf (0-5)
[2024-08-09 07:14] LABS: Troponin 5 2HR Delta 4.1 ABS# (0-10)
[2024-08-09 07:16] LABS: UA Slide Review UA Slide Review Perf
[2024-08-09 07:19] LABS: Urine Appearance Cloudy (CLEAR); Urine Color Yellow (Yellow)
[2024-08-09 07:20] LABS: Bilirubin Urine Neg (Negative); Blood Urine Neg (Negative); Glucose Urine UA Norm (Normal); Ketones Urine Negative (Negative); Leukocyte Esterase Urine 3+ (Negative); Nitrate Urine Negative (Negative); Protein Urine Neg (Negative); Specific Gravity, Urine 1.006 (1.005-1.030); Urobilinogen Urine 0.2 mg/dL (Negative); pH Urine 5.5 (5-7)
[2024-08-09 07:22] LABS: Troponin 5 2HR 101.1 ng/L (0-10)
--- NOTE | 2024-08-09 09:06 | ECG_ITS ---
[employer] [facility] Test Date: 2024-08-09 Pat Name: Susan Resendiz Department: Room: Gender: Female Room Service Runner: : 1945 Requested By: Maribel Talley Order Number: [id number] Anaid MD: Bin Soria M.D. Measurements Intervals [place] Rate: 91 P: 77 [place]: 172 QRS: 112 QRSD: 80 T: 21 QT: 362 QTc: 447 Interpretive Statements SINUS RHYTHM SEPTAL MYOCARDIAL INFARCTION , OF INDETERMINATE AGE [40+ ms Q WAVE IN V1/V2] Compared to ECG 08/09/2024 04:29:00 Sinus tachycardia no longer present T-wave abnormality no longer present Possible ischemia no longer present Myocardial infarct finding still present Electronically Signed On 08-09-2024 17:03:44 CRYSTAL CUTTER by Bin Soria M.D. [id number]
--- NOTE | 2024-08-09 10:26 | ECG_ITS ---
[facility] Test Date: 2024-08-09 Pat Name: Susan Resendiz Department: Room: Gender: Female Smoke And Flame Specialist: : 1945 Requested By: Maribel Talley Order Number: [id number] Worrell MD: Bin Soria M.D. Measurements Intervals [place] Rate: 104 P: 44 [place]: 156 QRS: 95 QRSD: 82 T: 0 QT: 346 QTc: 457 Interpretive Statements SINUS TACHYCARDIA POSSIBLE LEFT ATRIAL ENLARGEMENT [-0.1mV P-WAVE IN V1/V2] BORDERLINE RIGHT AXIS DEVIATION [QRS AXIS > 90] LOW QRS VOLTAGE IN PRECORDIAL LEADS [QRS DEFLECTION < 1.0 mV IN CHEST LEADS] SEPTAL MYOCARDIAL INFARCTION , OF INDETERMINATE AGE [40+ ms Q WAVE IN V1/V2] MODERATE T-WAVE ABNORMALITY, CONSIDER ANTEROLATERAL ISCHEMIA [-0.1+ mV T-WAVE IN V3-V6]. Baseline artifacts, need to repeat Compared to ECG 07/15/2024 17:10:50 Myocardial infarct finding now present. T-wave abnormality now present Possible ischemia now present. Sinus rhythm no longer present Incomplete right bundle-branch block no longer present Electronically Signed On 08-09-2024 17:03:36 ADJUSTO WRITER OPERATOR by Bin Soria M.D. [email or web address]
== END 2024-08-09 11:55 | disposition home or self-care (01) ==
PROVIDERS: Emergency Medicine; Emergency Provider Family Medicine; PCP Internal Medicine
DX: I95.1 Orthostatic hypotension (principal); I50.9 Heart failure, unspecified; J44.9 Chronic obstructive pulmonary disease, unspecified; E11.22 Type 2 diabetes mellitus with diabetic chronic kidney disease; N18.9 Chronic kidney disease, unspecified
CPT/HCPCS: 71045; 80053; 81001; 83880; 84484; 85025; 93005; 99285; J7040

== ENCOUNTER → 2024-08-12 09:29 | Outpatient (BNVA) | payer MEDICARE, SELFPAY | PROVIDERS: PCP Internal Medicine; Visit Provider Surgery | DX: Z09 Encounter for follow-up examination after completed treatment for conditions other than malignant neoplasm (principal); K42.9 Umbilical hernia without obstruction or gangrene | CPT/HCPCS: 99204 ==

== ENCOUNTER 2024-10-19 01:22 | Inpatient (IN) | payer MEDICARE, SELFPAY ==
[2024-10-19] VITALS (52 sets, daily range): BP systolic 91–143; BP diastolic 48–103; PULSE 87–108; RESP 16–32; TEMP 36.5–36.8; O2SAT 89–98; BMI 31.4; BMI 20.4
--- NOTE | 2024-10-19 01:41 | XRR_ITS ---
PROCEDURE INFORMATION: Exam: XR Chest Exam date and time: 10/19/2024 1:42 AM Age: 79 years old Clinical indication: Cough and shortness of breath; Prior surgery; Surgery date: 6+ months; Surgery type: Humeral fixation; Cough with SOB. History of chf and copd. TECHNIQUE: Imaging protocol: Radiologic exam of the chest. Views: 1 view. COMPARISON: CR XR chest 1V portable [id number] 08/09/2024 4:47 AM FINDINGS: Lungs: Stable appearance of chronic lung markings. No large focal consolidation. Pleural spaces: No large pleural effusion. No distinct pneumothorax. Heart/Mediastinum: Cardiomediastinal silhouette is midline and stable in size. Vasculature: Calcific disease of the aorta. Bones/joints: Partially imaged fixation of the right humerus. No distinct acute osseous findings. XR/XR chest 1V portable [id number] IMPRESSION: No acute cardiopulmonary findings.
[2024-10-19 01:54] LABS: ABG PCO2 54.9 mmHg (35-45); ABG PH Result 7.24 (7.35-7.45); Arterial Blood Gas Hematocrit 36.4 % (37-47); Base Excess ABG -4.2 mmol/L (-2.0-2.0); Blood Gas Sample Site Brachial, right; Blood Gas Sample Type Arterial; Carboxyhemoglobin 1.3 %THgb (0.4-20.1); HCO3 ABG 23.7 mmol/L (22-26); HGB O2 Sat 86.7 % (95-100); Methemoglobin 1.2 % (0.4-1.5); Oxygen Device NC; PO2 ABG 66.7 mmHg (80.0-100.0); Total Hemoglobin 11.9 g/dL (12-16)
[2024-10-19] MEDS: ipratropium-albuterol 3 mL Neb INHALATION ×5 (01:55→20:34)
--- NOTE | 2024-10-19 02:02 | ECG_ITS ---
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1945 Requested By: Ziggy Solis Order Number: [id number] Reading MD: MEHNAZ TAVERAS Measurements Intervals [place] Rate: 101 P: 86 MI: 158 QRS: 114 QRSD: 86 T: 27 QT: 319 QTc: 415 Interpretive Statements SINUS TACHYCARDIA POSSIBLE RIGHT VENTRICULAR HYPERTROPHY [SOME/ALL OF: PROMINENT R IN V1, LATE TRANSITION, RAD, FELICITA, SSS] LATERAL MYOCARDIAL INFARCTION , PROBABLY OLD [40+ ms Q WAVE AND/OR ST/T ABNORMALITY IN I/aVL/V5/V6] MODERATE T-WAVE ABNORMALITY, CONSIDER INFERIOR ISCHEMIA [-0.1+ mV T-WAVE IN II/aVF] INTERPRETATION BASED ON A DEFAULT AGE OF 40 YEARS Electronically Signed On 10-19-2024 19:16:13 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
--- NOTE | 2024-10-19 02:23 | PC.RESP ---
patient states she is extremely anxious, is not able to tolerate any kind of mask over her face. States this will put her into a panic attack. Physician notified, states will talk with patient but to start on FNC at this time.
[2024-10-19] MEDS: methylPREDNISolone sod succ 125 mg/2 mL INJ IV (02:40)
[2024-10-19 03:00] LABS: Influenza A POSITIVE (Negative); Influenza B NEGATIVE (Negative); Respiratory Syncytial Virus Ce NEGATIVE (Negative); SARS-CoV-2 PCR NEGATIVE (Negative)
--- NOTE | 2024-10-19 03:42 | PC.NURSE ---
Patient states she would like to hold off on straight cath at this time. Dr. Solis notified with no new orders.
[2024-10-19 03:59] LABS: Basophils % 0.1 %; Eosinophils % 0.1 %; Hematocrit 35.8 % (36-47); Lymphocytes # 0.6 10^3/uL (0.8-4.8); Lymphocytes % 4.3 %; Mean Corpuscular Hemoglobin 30.8 pg (27-33); Mean Corpuscular Volume 99.4 fl (85-98); Mean Platelet Volume 10.3 fL (7.4-10.4); Monocytes # 0.5 10^3/uL (0.2-0.9); Monocytes % 3.9 %; Neutrophils # 12.59 10^3/uL (1.8-7.7); Neutrophils % 91.2 %; Nucleated Red Blood Cells % 0 %; Platelet Count 150 10^3/cmm (157-399); Red Cell Distribution Width 17.4 % (12.1-15.1)
[2024-10-19 04:19] LABS: D Dimer 1.17 ug/mLFEU (0-0.59)
[2024-10-19 04:26] LABS: Troponin(5th) Baseline 45 ng/L (0-10)
[2024-10-19 04:31] LABS: Blood Urea Nitrogen 42 mg/dL (8-23); Calcium 8.4 mg/dL (8.5-10.5); Carbon Dioxide 20 mmol/L (22-29); Chloride 98 mmol/L (98-107); Creatinine Clr Calc Pharmacy 22.0604; Glucose 128 mg/dL (65-115); Osmolality Calculated 294 mOsm/kg (285-295); Sodium 136 mmol/L (136-145)
[2024-10-19 04:32] LABS: Anion Gap 22.8 (5-19); Potassium 4.8 mmol/L (3.5-5.1)
[2024-10-19 04:37] LABS: Slide Review Slide Review Perform
[2024-10-19 04:52] LABS: NT Pro B Type Natriuretic Pept 39275 pg/mL (0-450)
--- NOTE | 2024-10-19 04:58 | W.ED.SOB ---
HPI - SOB/Dyspnea General: Chief Complaint: Shortness of Breath/Dyspnea Stated Complaint: SOB Time Seen by Provider: 10/19/24 01:32 History of Present Illness: HPI Narrative: This patient is a 79-year-old white female who presents to the emergency department with shortness of breath and cough. She states she has been ill for about 3 days. She does have COPD and is normally on 3 L of oxygen. She is requiring 10 L now. Related Data Home Medications ?Medication ?Instructions ?Recorded ?Confirmed sertraline 50 mg tablet 50 mg PO DAILY 03/16/24 08/12/24 fluticasone propionate 45 2 inh inhalation BID 07/15/24 08/12/24 mcg-salmeterol 21 mcg/actuation HFA inhaler (Advair HFA) mometasone-formoterol HFA 100 2 puff inhalation BID 07/15/24 08/12/24 mcg-5 mcg/actuation aerosol inhaler (Dulera) Previous Rx's ?Medication ?Instructions ?Recorded albuterol sulfate 90 mcg/actuation 2 inh inhalation Q8H PRN shortness 03/22/24 aerosol inhaler of breath or wheezing #6.7 grams potassium chloride 10 mEq 10 meq PO .with bumex every otherd 03/22/24 tablet,extended release day w bumex #30 tabs tiotropium bromide 18 mcg capsule 1 cap inhalation DAILY #60 03/22/24 with inhalation device (Spiriva inhalations with HandiHaler) fluconazole 100 mg tablet 200 mg (2 x 100 mg) PO DAILY #14 07/30/24 tabs folic acid 1 mg tablet 1 mg PO BID #60 tabs 07/30/24 furosemide 40 mg tablet 40 mg PO DAILY@0800 PRN swelling 07/30/24 #15 tabs ipratropium bromide 0.02 % 0.5 mg (2.5 mL) inhalation 07/30/24 solution for inhalation Q6H.RESP #75 mL levalbuterol HCl 0.63 mg/3 mL 0.63 mg (3 mL) inhalation Q6H.RESP 07/30/24 solution for nebulization #75 mL pantoprazole 40 mg tablet,delayed 40 mg PO QAM #60 tabs 07/30/24 release (Protonix) Allergies Allergy/AdvReac Type Severity Reaction Status Date / Time penicillin G Allergy Severe ALGY-Swell Verified 08/12/24 09:30 Lip/Tongue/Throat Penicillins Allergy Unknown Verified 08/12/24 09:30 Review of Systems General: Reports: 10 or more systems reviewed and unremarkable except in HPI and below Const: Reports: fatigue and malaise Resp: Reports: dyspnea and non-productive cough PFSH ED PFSH: Medical History Mild aortic stenosis Urinary tract infection Deep vein thrombosis, lower left extremity 03/17- Nonocclusive thrombus distal left superficial femoral vein and popliteal vein. CKD (chronic kidney disease) Acute hypoxemic respiratory failure COPD (chronic obstructive pulmonary disease) Acute on chronic renal insufficiency Congestive heart failure Acute exacerbation of chronic obstructive airways disease Leukoplakia of bladder Diabetes mellitus History of recurrent UTI (urinary tract infection) Surgical History History of tonsillectomy and adenoidectomy H/O tubal ligation S/P IVC filter 07/19/2024 Family History Mother , AT AGE 91 Stroke Father , AT 99 No problems noted. Social History Smoking and tobacco/nicotine status: never used tobacco/nicotine Alcohol intake: never Marital status: / Current occupational status: retired Physical Exam Const: COMMON NORMALS: patient oriented x3 and no limitations GENERAL APPEARANCE: cooperative HENMT: COMMON NORMALS: normocephalic, atraumatic, moist oral mucous membranes and oropharynx normal HEAD & SCALP: normal to inspection, normocephalic and atraumatic FACE & SINUS: normal facial exam NOSE: Nasal discharge present Eye: COMMON NORMALS: Equal, round and reactive pupils present, EOMs intact bilaterally and conjunctivae normal GENERAL EYE: appearance normal, both eyes and all related structures CONJUNCTIVA: Yes conjunctivae normal PUPIL: Yes Equal, round and reactive pupils present Neck/C-Spine: COMMON NORMALS: supple and no JVD Chest: COMMONS NORMALS: normal inspection of the chest Resp: EFFORT & INSPECTION: Yes tachypneic and Yes respiratory distress AUSCULTATION: wheezes Cardio: COMMON NORMALS: no JVD, regular rate, regular rhythm, No gallops present (Cardio), No murmurs present (Cardio) and No rub (Cardio) RATE: regular rate RHYTHM: regular rhythm GI: COMMON NORMALS: Normal to inspection, nondistended, normoactive bowel sounds present, Soft to palpation and non-tender AUSCULTATION: Yes normoactive bowel sounds PALPATION: Yes Soft to palpation : COMMON NORMALS: Yes no CVA tenderness BLADDER/KIDNEY EXAM: Yes no CVA tenderness Back/Pelvis: COMMON NORMALS: no CVA tenderness and thoracic and lumbar spine normal to inspection Extremity: COMMON NORMALS: normal to inspection Neuro: COMMON NORMALS: patient oriented x3 and CN's II-XII intact bilaterally Psych: COMMON NORMALS: mental status grossly normal, Normal thought process present and cooperative THOUGHT PROCESS: Normal thought process present Skin: COMMON NORMALS: no rashes or lesions noted, turgor normal and no jaundice GENERAL SKIN EXAM: no rashes or lesions noted and turgor normal Course Vital Signs: Vital signs: Vital Signs Temperature 98.3 F 10/19/24 01:28 Pulse Rate 96 10/19/24 04:45 Respiratory Rate 24 H 10/19/24 04:45 Blood Pressure 132/91 10/19/24 04:15 Pulse Oximetry 95 10/19/24 04:45 Oxygen Delivery Me thod Nasal Cannula 10/19/24 01:55 Oxygen Flow Rate 50 10/19/24 04:45 Fraction of Inspir ed Oxygen 60 10/19/24 04:45 MDM - SOB/Dyspnea Medical Decision Making Patient was given a DuoNeb treatment and 125 mg of Solu-Medrol IV. CBC revealed a white blood cell count of 13.8. BMP revealed a BUN of 42 creatinine of 2.0. Troponin was 45. D-dimer 1.17. Arterial blood gases on 10 L revealed a pH of 7.24 with a P CO2 of 55 and a pO2 of 67. EKG revealed sinus tachycardia with no significant ST segment abnormalities. Chest x-ray was read by the radiologist as normal. Influenza A was positive. COVID and RSV negative. Patient will need to be admitted. I discussed the case with Dr. Dwyer, hospitalist. He did accept the admission. Patient will be transferred to the floor shortly. She is stable. Lab Data 10/19/24 03:53 10/19/24 03:53 Labs/Radiology: Radiology Impressions Chest X-Ray 10/19/24 01:41 IMPRESSION: No acute cardiopulmonary findings. Laboratory Results WBC 13.80 10^3/uL (3.29-11.43) H 10/19/24 03:53 RBC 3.60 10^6/uL (3.85-5.65) L 10/19/24 03:53 Hgb 11.10 g/dL (11.27-16.99) L 10/19/24 03:53 Hct 35.8 % (36-47) L 10/19/24 03:53 MCV 99.4 fl (85-98) H 10/19/24 03:53 MCH 30.8 pg (27-33) 10/19/24 03:53 MCHC 31.0 g/dL (30-55) 10/19/24 03:53 RDW 17.4 % (12.1-15.1) H 10/19/24 03:53 Plt Count 150 10^3/cmm (157-399) L 10/19/24 03:53 MPV 10.3 fL (7.4-10.4) 10/19/24 03:53 Neut % (Auto) 91.2 % 10/19/24 03:53 Lymph % (Auto) 4.3 % 10/19/24 03:53 [place] % (Auto) 3.9 % 10/19/24 03:53 Eos % (Auto) 0.1 % 10/19/24 03:53 Baso % (Auto) 0.1 % 10/19/24 03:53 Neut # (Auto) 12.59 10^3/uL (1.8-7.7) H 10/19/24 03:53 Lymph # (Auto) 0.6 10^3/uL (0.8-4.8) L 10/19/24 03:53 [place] # (Auto) 0.5 10^3/uL (0.2-0.9) 10/19/24 03:53 Eos # (Auto) 0.0 10^3/uL (0.0-0.8) 10/19/24 03:53 Baso # (Auto) 0.0 10^3/uL (0.0-0.1) 10/19/24 03:53 Nucleated RBC % (auto) 0 % 10/19/24 03:53 Nucleated RBCs # 0.0 /100WBC 10/19/24 03:53 D-Dimer 1.17 ug/mLFEU (0-0.59) H 10/19/24 03:53 Specimen Type Arterial 10/19/24 01:44 Sample Site Brachial, right 10/19/24 01:44 ABG pH 7.24 (7.35-7.45) L 10/19/24 01:44 ABG pCO2 54.9 mmHg (35-45) H 10/19/24 01:44 ABG pO2 66.7 mmHg (80.0-100.0) L 10/19/24 01:44 ABG HCO3 23.7 mmol/L (22-26) 10/19/24 01:44 ABG Base Excess -4.2 mmol/L (-2.0-2.0) L 10/19/24 01:44 Zackary Test N/a 10/19/24 01:44 Hematocrit 36.4 % (37-47) L 10/19/24 01:44 Hgb O2 Saturation 86.7 % (95-100) L 10/19/24 01:44 Carboxyhemoglobin 1.3 %THgb (0.4-20.1) 10/19/24 01:44 Methemoglobin 1.2 % (0.4-1.5) 10/19/24 01:44 Total Hemoglobin 11.9 g/dL (12-16) L 10/19/24 01:44 O2 Delivery Device Nc 10/19/24 01:44 O2 Liters/Min 10.0 % 10/19/24 01:44 Home Health Nurse Licensed Practical ID [email or web address] 10/19/24 01:44 Sodium 136 mmol/L (136-145) 10/19/24 03:53 Potassium 4.8 mmol/L (3.5-5.1) 10/19/24 03:53 Chloride 98 mmol/L (98-107) 10/19/24 03:53 Carbon Dioxide 20 mmol/L (22-29) L 10/19/24 03:53 Anion Gap 22.8 (5-19) H 10/19/24 03:53 BUN 42 mg/dL (8-23) H 10/19/24 03:53 Creatinine 2.0 mg/dL (0.5-0.9) H 10/19/24 03:53 GFR Calculation Not Reportable 10/19/24 03:53 Glucose 128 mg/dL (65-115) H 10/19/24 03:53 Calculated Osmolality 294 mOsm/kg (285-295) 10/19/24 03:53 Calcium 8.4 mg/dL (8.5-10.5) L 10/19/24 03:53 Troponin T Baseline 45 ng/L (0-10) H 10/19/24 03:53 NT-Pro-B Natriuret Pep 55957 pg/mL (0-450) H 10/19/24 03:53 Coronavirus (PCR) Negative (Negative) 10/19/24 01:41 Influenza A (PCR) Positive (Negative) 10/19/24 01:41 Influenza Type B (PCR) Negative (Negative) 10/19/24 01:41 RSV (PCR) Negative (Negative) 10/19/24 01:41 All radiology interpretation(s) finalized by discharge Discharge Plan Discharge Patient Disposition: Admitted As Inpatient Clinical Impression: Influenza A, COPD exacerbation Condition: Stable Coding Level of Care Code ED Infrastructure Technician for Macarena Giang
--- NOTE | 2024-10-19 04:59 | P.HP_ITS ---
Providers/Chief Complaint 2 Primary Care Provider: Jeff Banegas DO Chief Complaint: SOB History of Present Illness Susan Resendiz is a 79 year old female with a past medical history significant for chronic hypoxic respiratory failure on 3 L baseline, COPD, GERD, aortic stenosis, pulmonary hypertension, and multiple other comorbidities who presents to the emergency department with shortness of breath. Patient reports symptoms have lasted for several weeks but acutely worse in the past 2 days. She endorses associated cough which she describes as nonproductive. Reports subjective fevers, chills, fatigue and malaise. Exertion worsens symptoms. Rest improves. In the emergency department, patient was found to be tachypneic. She required initiation of high flow nasal cannula oxygen. Labs revealed leukocytosis to 13.8, thrombocytopenia to 150, CO2 retention with pCO2 54.9 mmHg resulting in pH 7.24, and mild metabolic acidosis with bicarb of 20. NT proBNP was markedly elevated at 39,275 pg/mL. influenza A swab positive. Chest x-ray was negative for acute findings. Review of Systems 2 Narrative: A complete review of systems was obtained and is negative except as stated in HPI. Medications/Allergies Home Medications ?Medication ?Instructions ?Recorded ?Confirmed ?Last Taken ?Type sertraline 50 mg tablet 50 mg PO DAILY 03/16/2405/28 Unknown History albuterol sulfate 90 mcg/actuation 2 inh inhalation Q8 H PRN shortness 03/22/24 08/12/24 Unknown Rx aerosol inhaler of breath or wheezing #6.7 g justin potassium chloride 10 mEq 10 meq PO .with bumex every otherd 03/22/24 08/12/24 Unknown Rx tablet,extended release day w bumex #30 tabs tiotropium bromide 18 mcg capsule 1 cap inhalation ELIZABETH LY #60 03/22/24 08/12/24 Unknown Rx with inhalation device (Spiriva inhalations with HandiHaler) fluticasone propionate 45 2 inh inhalation BID 4 08/12/24 Unknown History mcg-salmeterol 21 mcg/actuation HFA inhaler (Advair HFA) mometasone-formoterol HFA 100 2 puff inhalation BID 08/12/24 Unknown History mcg-5 mcg/actuation aerosol inhaler (Dulera) fluconazole 100 mg tablet 200 mg (2 x 100 mg) PO DAILY #14 07/30/24 08/12/24 Unknown Rx tabs folic acid 1 mg tablet 1 mg PO BID #60 tabs 4 08/12/24 Unknown Rx furosemide 40 mg tablet 40 mg PO DAILY@0800 PRN swel ling 07/30/24 08/12/24 Unknown Rx #15 tabs ipratropium bromide 0.02 % 0.5 mg (2.5 mL) inhalation 07/30/24 08/12/24 Unknown Rx solution for inhalation Q6H.RESP #75 mL levalbuterol HCl 0.63 mg/3 mL 0.63 mg (3 mL) inhalatio n Q6H.RESP 07/30/24 08/12/24 Unknown Rx solution for nebulization #75 mL pantoprazole 40 mg tablet,delayed 40 mg PO QAM #60 tab s 07/30/24 08/12/24 Unknown Rx release (Protonix) Allergies Allergy/AdvReac Type Severity Reaction Status Date / Time penicillin G Allergy Severe ALGY-Swell Verified 08/12/24 09:30 Lip/Tongue/Throat Penicillins Allergy Unknown Verified 08/12/24 09:30 PFSH Acute 2 PFSH: Medical History Mild aortic stenosis Urinary tract infection Deep vein thrombosis, lower left extremity 03/17- Nonocclusive thrombus distal left superficial femoral vein and popliteal vein. CKD (chronic kidney disease) Acute hypoxemic respiratory failure COPD (chronic obstructive pulmonary disease) Acute on chronic renal insufficiency Congestive heart failure Acute exacerbation of chronic obstructive airways disease Leukoplakia of bladder Diabetes mellitus History of recurrent UTI (urinary tract infection) Surgical History History of tonsillectomy and adenoidectomy H/O tubal ligation S/P IVC filter 07/19/2024 Family History Mother , AT AGE 91 Stroke Father , AT 99 No problems noted. Social History Smoking and tobacco/nicotine status: never used tobacco/nicotine Alcohol intake: never Marital status: / Current occupational status: retired Vitals/I&O/Wt Last Vital Signs Temp 98.3 F 10/19/24 01:28 Pulse 96 10/19/24 04:45 Resp 24 H 10/19/24 04:45 BP 132/91 10/19/24 04:45 Pulse Ox 95 10/19/24 04:45 O2 Del Method Nasal Cannula 10/19/24 01:55 O2 Flow Rate 50 10/19/24 04:45 FiO2 60 10/19/24 04:45 10/18/24 10/18/24 10/19/24 14:59 22:59 06:59 Intake Total 0 / 0 Balance 0 / 0 Weight last 48 hrs Weight 78.018 kg Physical Exam 2 Narrative: General: Patient is awake. Ill-appearing. On high flow nasal cannula support. Head: Normocephalic. Atraumatic. EOM intact. Neck: No JVD. Cardiovascular: RRR. No gallops. No murmurs. No peripheral edema. Lungs: Poor to moderate air movement. Faint end expiratory wheeze. Conversational tachypnea. Increased work of breathing. Abdomen: Normal bowel sounds, abdomen soft and nontender. Extremities: No cyanosis or clubbing. Musculoskeletal: No swollen or erythematous joints. Neurological: Moves all 4 extremities. No myoclonus. Data 10/19/24 03:53 10/19/24 03:53 A&P Assessment and plan (1) COPD (chronic obstructive pulmonary disease): Acute COPD exacerbation with acute on chronic hypoxic respiratory failure Acute hypercapnic respiratory failure Trigger likely influenza A infection No infiltrate on chest x-ray Start systemic steroid steroids with Solu-Medrol Pulmicort Scheduled DuoNebs Encourage pulmonary toilet Supportive care (2) Influenza A: Droplet precautions Start Tamiflu (3) Generalized weakness: Debility and physical deconditioning secondary to acute illness Treat underlying respiratory failure, COPD and influenza Supportive care (4) Elevated brain natriuretic peptide (BNP) level: No acute pulmonary edema on chest x-ray Echocardiogram from July shows preserved LVEF, grade I/IV diastolic dysfunction Strict I's and O's Daily assessments of volume Diuresis as needed (5) CKD (chronic kidney disease): Chronic kidney disease, specified stage Renal function at baseline Renally dose meds Avoid nephrotoxins Plan DVT prophylaxis: Heparin PDMP PDMP Reviewed: Not Reviewed Attestations 2 Medical Necessity Statement*: Patient presents with shortness of breath and cough, found to have acute COPD exacerbation with acute on chronic hypoxia and hypercapnic respiratory failure secondary to acute influenza A infection with expected hospitalization not to cross 2 midnights for IV steroids, breathing treatments and supportive care. Coding Level of Care Code Acute Code for [facility] Fwd Diagnoses COPD (chronic obstructive pulmonary disease) J44.9 Influenza A J10.1 Generalized weakness R53.1 Elevated brain natriuretic peptide (BNP) level R79.89 CKD (chronic kidney disease) N18.9
--- NOTE | 2024-10-19 05:51 | ECG_ITS ---
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[id number] Requested By: Ziggy Solis Order Number: [id number] Reading MD: MEHNAZ TAVERAS Measurements Intervals [place] Rate: 96 P: 67 TN: 170 QRS: 96 QRSD: 84 T: 9 QT: 340 QTc: 430 Interpretive Statements SINUS RHYTHM POSSIBLE LEFT ATRIAL ENLARGEMENT [-0.1mV P-WAVE IN V1/V2] BORDERLINE RIGHT AXIS DEVIATION [QRS AXIS > 90] LOW QRS VOLTAGE IN PRECORDIAL LEADS [QRS DEFLECTION < 1.0 mV IN CHEST LEADS] SEPTAL MYOCARDIAL INFARCTION , PROBABLY OLD [40+ ms Q WAVE IN V1/V2] Compared to ECG 10/19/2024 01:30:13 Low QRS voltage now present Sinus tachycardia no longer present T-wave abnormality no longer present Possible ischemia no longer present Myocardial infarct finding still present Electronically Signed On 10-19-2024 19:32:18 NATURALIST by MEHNAZ TAVERAS [email or web address]
[2024-10-19 06:11] LABS: Troponin 5 2HR 45.44 ng/L (0-10); Troponin 5 2HR Delta 0.44 ABS# (0-10)
[2024-10-19 06:23] LABS: Procalcitonin 0.34 ng/mL (0-0.5)
[2024-10-19] MEDS: enoxaparin 40 mg/0.4 mL Syringe SUBCUT (06:25)
[2024-10-19] MEDS: pantoprazole DR 40 mg Tablet PO (06:25)
[2024-10-19] MEDS: budesonide 0.5 mg/2 mL Neb INHALATION ×2 (08:13→20:35)
[2024-10-19] MEDS: methylPREDNISolone sod succ 40 mg/mL INJ IVP ×3 (08:35→19:42)
[2024-10-19] MEDS: ondansetron 2 mg/ML SDV 2 mL 4 MG IVP (08:36)
[2024-10-19] MEDS: folic acid 1 mg Tablet PO (08:36)
[2024-10-19] MEDS: oseltamivir phosphate 30 mg Capsule PO (08:36)
[2024-10-19] MEDS: sertraline 50 mg Tablet PO (08:36)
[2024-10-19 09:04] LABS: Bilirubin Urine Negative (Negative); Blood Urine 3+ (Negative); Glucose Urine UA Negative (Normal); Ketones Urine Negative (Negative); Leukocyte Esterase Urine 3+ (Negative); Nitrate Urine Negative (Negative); Protein Urine 1+ (Negative); Urine Appearance Turbid (CLEAR); Urine Color Yellow (Yellow); Urobilinogen Urine 0.2 mg/dL (Negative)
[2024-10-19 09:08] LABS: Add Urine Microscopic? YES; Bacteria Urine 4+ /hpf; Hyaline Casts Urine 4.11 /lpf; RBC Urine 51-100 /hpf (0-2); Squamous Epithelial Cell Urine 21-50 /hpf (0-5); WBC Urine 21-50 /hpf (0-5)
[2024-10-19 09:22] LABS: UA Slide Review UA Slide Review Perf
[2024-10-19 09:23] LABS: Amorphous Sediment Urine 1+ /hpf
--- NOTE | 2024-10-19 11:12 | PC.NURSE ---
Per Dr. Ventura, we will move pt to ICU. Salma (contact) advised that pt will be moving to ICU.
--- NOTE | 2024-10-19 11:20 | PC.NURSE ---
Report called to YEYO in the ICU
--- NOTE | 2024-10-19 11:37 | PC.NURSE ---
recieved to icu incontinent of urine changed linen and bart care done vs check done on high flow o2 at this time
[2024-10-19] MEDS: acetaminophen 325 mg Tablet 650 MG PO (13:56)
--- OUTSIDE RECORDS SUMMARY | 2024-10-19 14:38 | XMS_ITS ---
Author Organization [facility] Address [address] [place] [address] Care Team Providers Care Tree Chipper Name Role Phone Jeff Banegas Primary Care Provider AKIKO Blanton Unavailable [phone] KYLEE AARON Unavailable [phone] Allergies Allergen (clinical drug ingredient) Drug/Non Drug Allergy documented on EMR Reaction Allergy Type Onset Date Status Substance with penicillin structure and antibacterial mechanism of action (substance) Penicillins Unknown Drug Allergy Active REASON FOR VISIT 3 wk f/u - possible VT Medications Medication SIG (Take, Route, Frequency, Duration) Notes Start Date End Date Status Tylenol 325 MG 1 tablet as needed O rally every 6 hrs Active Ipratropium [place] Active Albuterol Sulfate HFA 108 (90 Base) MCG/ACT 1 puff as needed Inhalation every 4 hrs Active Spiriva Respimat 1.25 MCG/ACT 2 puffs Inhalation Once a day Active Sertraline HCl 50 MG 1 tablet Orally Onc e a day Active Mucus Relief Active Pantoprazole Sodium 40 MG 1 tablet 1/2 t o 1 hour before morning meal Orally Once a day Active Milk of Magnesia 400 MG/5ML 5 mL at leas t 4 hours between doses as needed Orally Four times a day Active Levalbuterol HCl 0.63 MG/3ML 3 mL as needed Inhalation every 8 hrs Active Folic Acid 1 MG 1 tablet Orally Once a day Active Social History Tobacco Use: Social History Observation Description Date Details (start date - stop date) Never Smoker NA - NA Tobacco Control (Standard) Question Answer Notes Tobacco use: Nonsmoker Vital Signs Blood pressure systolic 110 mm Hg 09/27/19 25 Blood pressure diastolic 67 mm Hg 025 Heart Rate 90 /min 09/27/2024 Height 62 in 09/27/2024 Weight 162 lbs 09/27/2024 BMI 29.63 kg/m2 09/27/2024 Height-cm 157.48 cm 09/27/2024 Weight-kg 73.48 kg 09/27/2024 Procedures Procedure Date Ordered Date Performed Result Body Sit e Voiding Trial 09/27/2024 09/27/2024 N/A Encounters Encounter Location Date Provider Diagnosis [facility] [place] [address] [place] [address] 09/27/2024 KYLEE AARON Urinary retention R3 3.9 ; Impaired mobility Z74.09 ; History of hydronephrosis Z87.448 ; History of UTI Z87.440 ; History of recent hospitalization Z92.89 ; Chronic kidney disease, stage 4 (severe) N18.4 ; Family history of kidney disease Z84.1 and Catheter (urine) change required Z46.6 Assessments Encounter Date Diagnosis (ICD Code) Assessment Notes Treatment Notes Treatment Clinical Notes Section Notes 09/27/2024 Urinary retention (ICD-10 - R33.9) 09/27/2024 Impaired mobility (ICD-10 - Z74.09) 09/27/2024 History of hydronephrosis (ICD-10 - Z87.448) 09/27/2024 History of UTI (ICD-10 - Z87.440) 09/27/2024 History of recent hospitalization (ICD-10 - Z92.89) 09/27/2024 Chronic kidney disease, stage 4 (severe) (ICD-10 - N18.4) 09/27/2024 Family history of kidney disease (ICD-10 - Z84.1) 09/27/2024 Catheter (urine) change required (ICD-10 - Z46.6) 09/27/2024 Other DC Low and perform VT today. Encouraged timed and double voiding to retrain bladder. RTC in 4-6 weeks with UA/PVR. If she has any issues with retention at her facility, they can replace a catheter. Plan Of Treatment Treatment Notes Assessment Notes Other DC Low and perform VT today. Encouraged timed and double voiding to retrain bladder. RTC in 4-6 weeks with UA/PVR. If she has any issues with retention at her facility, they can replace a catheter. Next Appt Details Follow Up: 4-6 weeks, Reason : ua/pvr Provider Name:KYLEE AARON, 0 11/08/2024 11:00:00 AM, [address] [facility] [place], [address], Progress Notes * Susan FIELDS EDOB:[birth year] (79 yo F)Acc No.[id number]:09/27/2024 Progress Notes Patient:?Susan FIELDS Provider:?PATTIE Retana :1945???Age:79 Y???Sex:Female D ate:09/27/2024 Address:[facility] [address], [facility] [place], [id number] Pcp:Jeff Banegas Subjective: * Chief Complaints: * ???3 wk f/u - possible VT * HPI: ???Migrated HPI:?Ms. Fields is a 79-year-old female patient referred after hospitalization at [facility] for urinary retention.?PMH includes CKD, hypoxemia, CHF, COPD, diabetes recurrent UTIs. No history of smoking. She reports family history of kidney disease in her brother, denies family history of malignancy.? She was admitted on 07/15/2024 after a fall with complaint of shortness of breath and weakness. Patient states she was found to have a bleed in her bowels. She was also diagnosed with blood clots in both legs. She was started on Eliquis. She had acute kidney injury with a creatinine of 2.6 at intake. She does have history of stage IV chronic kidney disease. She is on portable O2. CT done while inpatient showed right hydroureteronephrosis with no sign of obstructing stone. Low catheter was placed. Patient states she went home with catheter, and it was removed last week, but she failed voiding trial and it was replaced. Denies problems with urination prior to hospitalization. She does require help with ambulation to get to the bathroom, but denies problems with incontinence. She elected to leave catheter in place while she continued to work on regaining strength and mobility.? Patient presents today for follow up. She has regained some strength since last visit. She still needs assistance with ambulation. She is have some irritation from catheter and would like to have removed today. Denies fever, flank pain, gross hematuria or suprapubic tenderness. * ROS:?General / Constitutional:?Patient denies?fever, chills, night sweats, change in appetite.?Admits?Weakness.?Respiratory:?Patient denies?cough.?Patient complains of?shortness of breath with exertion.?Cardiovascular:?Patient denies?chest pain, dizziness, palpitations.?Gastrointestinal:?Patient denies?abdominal pain, nausea, vomiting, change in bowel habits.?Genitourinary:?Patient denies?As documented in HPI.? * Medical History:? * Surgical History:?Tonsillect darian and adnoidectomy Tubal ligation * Hospitalization/Major Diagno stic Procedure:?No Hospitalization History. * Family History:?Father: dece ased.?Mother: , strokes.? * Social History:?Tobacco Use:?Tobacco Control (Standard)?Tobacco use:?Nonsmoker.? * Medications:?TakingMucus Rel ief Tylenol 325 MG Tablet 1 tablet as needed Orally every 6 hrs Ipratropium [place] Spiriva Respimat 1.25 MCG/ACT Aerosol Solution 2 puffs Inhalation Once a day Sertraline HCl 50 MG Tablet 1 tablet Orally Once a day Albuterol Sulfate HFA 108 (90 Base) MCG/ACT Aerosol Solution 1 puff as needed Inhalation every 4 hrs Pantoprazole Sodium 40 MG Tablet Delayed Release 1 tablet 1/2 to 1 hour before morning meal Orally Once a day Levalbuterol HCl 0.63 MG/3ML Nebulization Solution 3 mL as needed Inhalation every 8 hrs Folic Acid 1 MG Tablet 1 tablet Orally Once a day Milk of Magnesia 400 MG/5ML Suspension 5 mL at least 4 hours between doses as needed Orally Four times a day Medication List reviewed and reconciled with the patientTaking Mucus Relief Taking Tylenol 325 MG Tablet 1 tablet as needed Orally every 6 hrs Taking Ipratropium [place] Taking Spiriva Respimat 1.25 MCG/ACT Aerosol Solution 2 puffs Inhalation Once a day Taking Sertraline HCl 50 MG Tablet 1 tablet Orally Once a day Taking Albuterol Sulfate HFA 108 (90 Base) MCG/ACT Aerosol Solution 1 puff as needed Inhalation every 4 hrs Taking Pantoprazole Sodium 40 MG Tablet Delayed Release 1 tablet 1/2 to 1 hour before morning meal Orally Once a day Taking Levalbuterol HCl 0.63 MG/3ML Nebulization Solution 3 mL as needed Inhalation every 8 hrs Taking Folic Acid 1 MG Tablet 1 tablet Orally Once a day Taking Milk of Magnesia 400 MG/5ML Suspension 5 mL at least 4 hours between doses as needed Orally Four times a day Medication List reviewed and reconciled with the patient * Allergies:?Penicillins: Varun modesto[Allergies Verified] Objective: * Vitals:?BP: 110/67 mm Hg, HR : 90 /min, Wt: 162 lbs, Wt-k.48 kg, Ht: 62 in, Ht-cm: 157.48 cm, BMI: 29.63 Index, Body Surface Area: 1.79. * Examination: ???General Examination: ?General appearance:?alert, elderly, female, well-nourished and in no acute distress, in a wheelchair.?Skin:?skin is warm and dry, with no rashes, good skin turgor and normal hair distribution.?Heart:?regular rate.?Lungs:?symmetrical, non labored respirations, on portable O2.?Abdomen:?soft, non tender, non distended.?Back:?no CVA tenderness.? Assessment: * Assessment: 1.?Urinary retention - R33.9 (Primary)???2.?Impaired mobility - Z74.09???3.?History of hydronephrosis - Z87.448???Specify :right???4.?History of UTI - Z87.440???5.?History of recent hospitalization - Z92.89???6.?Chronic kidney disease, stage 4 (severe) - N18.4???7.?Family history of kidney disease - Z84.1???8.?Catheter (urine) change required - Z46.6??? Plan: * Treatment: 2.?Others? Notes: DC Low and perform VT today. Encouraged timed and double voiding to retrain bladder. RTC in 4-6 weeks with UA/PVR. If she has any issues with retention at her facility, they can replace a catheter.?? * Procedure Codes:?60961 IRRIG ATION OF BLADDER * Follow Up:?4-6 weeks (Reason : ua/pvr) * Billing Information: * Visit Code:? 47258 Office Visit, Est Pt., Level 3. Modifiers: 25 * Procedure Codes:? 92648 IRRIGATION OF BLADDER. * D RAIL INSTALLER Sign off status: Completed true * Provider:?Kylee Aaron APRN-POWERHOUSE ELECTRICIAN Date:?09/05 Generated for Vijay vizcaino/Jennie/Aniaitting on:?10/19/2024 02:38 PM GUARD RAIL INSTALLER History and Physical Notes * HPI (History of Present Illness) Category Sub-Category Detail Notes Category Not es Migrated HPI Ms. Fields is a 79-year-old female patient referred after hospitalization at [facility] for urinary retention. PMH includes CKD, hypoxemia, CHF, COPD, diabetes recurrent UTIs. No history of smoking. She reports family history of kidney disease in her brother, denies family history of malignancy. She was admitted on 07/15/2024 after a fall with complaint of shortness of breath and weakness. Patient states she was found to have a bleed in her bowels. She was also diagnosed with blood clots in both legs. She was started on Eliquis. She had acute kidney injury with a creatinine of 2.6 at intake. She does have history of stage IV chronic kidney disease. She is on portable O2. CT done while inpatient showed right hydroureteronephrosis with no sign of obstructing stone. Low catheter was placed. Patient states she went home with catheter, and it was removed last week, but she failed voiding trial and it was replaced. Denies problems with urination prior to hospitalization. She does require help with ambulation to get to the bathroom, but denies problems with incontinence. She elected to leave catheter in place while she continued to work on regaining strength and mobility. Patient presents today for follow up. She has regained some strength since last visit. She still needs assistance with ambulation. She is have some irritation from catheter and would like to have removed today. Denies fever, flank pain, gross hematuria or suprapubic tenderness. Examination Category Sub-Category Detail Notes Category Not es General Examination General appearance: alert, e lderly, female, well-nourished and in no acute distress, in a wheelchair Heart: regular rate Lungs: symmetrical, non lab ored respirations, on portable O2 Abdomen: soft, non tender, no n distended Skin: skin is warm and dry , with no rashes, good skin turgor and normal hair distribution Back: no CVA tenderness
--- OUTSIDE RECORDS SUMMARY | 2024-10-19 14:38 | XMS_ITS | Patient Health Record ---
Author Organization [facility] Address [address] [place] [address] Care Team Providers Care Occupational Health And Safety Adviser Name Role Phone BanegasJeff cary Primary Care Provider AKIKO Blanton Unavailable [phone] KADY AARON Unavailable [phone] Allergies Allergen (clinical drug ingredient) Drug/Non Drug Allergy documented on EMR Reaction Allergy Type Onset Date Status Substance with penicillin structure and antibacterial mechanism of action (substance) Penicillins Unknown Drug Allergy Active Reason For Referral No Information Medications Medication SIG (Take, Route, Frequency, Duration) Notes Start Date End Date Status Tylenol 325 MG 1 tablet as needed O rally every 6 hrs Active Ipratropium [place] Active Mucus Relief Active Albuterol Sulfate HFA 108 (90 Base) MCG/ACT 1 puff as needed Inhalation every 4 hrs Active Pantoprazole Sodium 40 MG 1 tablet 1/2 t o 1 hour before morning meal Orally Once a day Active Spiriva Respimat 1.25 MCG/ACT 2 puffs Inhalation Once a day Active Sertraline HCl 50 MG 1 tablet Orally Onc e a day Active Milk of Magnesia 400 [...] (Standard) Question Answer Notes Tobacco use: Nonsmoker Problems Problem Type SNOMED Code ICD Code Onset Dates Problem Status W/U Status Risk Notes Problem Chronic kidney disease stage 4 (793760625) Chronic kidney disease, stage 4 (severe) (N18.4) Active confirmed Problem Catheterization of urinary bladder (406311608) Low catheter in place (Z96.0) Active confirmed Vital Signs Heart Rate 90 /min 09/27/2024 Blood pressure diastolic 67 mm Hg 09/27/2024 Height-cm 157.48 cm 09/27/2024 Weight-kg 73.48 kg 09/27/2024 Height 62 in 09/27/2024 Blood pressure systolic 110 mm Hg 09/27/2024 Weight 162 lbs 09/27/2024 BMI 29.63 kg/m2 09/27/2024 Procedures Procedure Date Ordered Date Performed Result Body Sit e Voiding Trial 09/27/2024 09/27/2024 N/A Encounters Encounter Location Date Provider Diagnosis [facility] [address] [address] 08/16/2024 KADY REANO Urinary retention R3 3.9 ; Low catheter in place Z96.0 ; Impaired mobility Z74.09 ; History of hydronephrosis Z87.448 ; History of UTI Z87.440 ; History of recent hospitalization Z92.89 ; Chronic kidney disease, stage 4 (severe) N18.4 and Family history of kidney disease Z84.1 [facility] [address] [place] [address] 09/27/2024 KADY REANO Urinary retention R3 3.9 ; Impaired mobility Z74.09 ; History of hydronephrosis Z87.448 ; History of UTI Z87.440 ; History of recent hospitalization Z92.89 ; Chronic kidney disease, stage 4 (severe) N18.4 ; Family history of kidney disease Z84.1 and Catheter (urine) change required Z46.6 [facility] [address] [place] [address], [place] [address] 07/30/2024 AKIKO FRANKS Assessments Encounter Date Diagnosis (ICD Code) Assessment Notes Treatment Notes Treatment Clinical Notes Section Notes 09/27/2024 Impaired mobility (ICD-10 - Z74.09) 09/27/2024 Urinary retention (ICD-10 - R33.9) 08/16/[address] (ICD-10 - Z96.0) 08/16/2024 Urinary retention (ICD-10 - R33.9) 08/16/2024 Impaired mobility (ICD-10 - Z74.09) 09/27/2024 History of hydronephrosis (ICD-10 - Z87.448) 09/27/2024 History of UTI (ICD-10 - Z87.440) 08/16/2024 History of hydronephrosis (ICD-10 - Z87.448) 08/16/2024 History of UTI (ICD-10 - Z87.440) 09/27/2024 History of recent hospitalization (ICD-10 - Z92.89) 09/27/2024 Chronic kidney disease, stage 4 (severe) (ICD-10 - N18.4) 08/16/2024 History of recent hospitalization (ICD-10 - Z92.89) 08/16/2024 Chronic kidney disease, stage 4 (severe) (ICD-10 - N18.4) 09/27/2024 Family history of kidney disease (ICD-10 - Z84.1) 09/27/2024 Catheter (urine) change required (ICD-10 - Z46.6) 08/16/2024 Family history of kidney disease (ICD-10 - Z84.1) 08/16/2024 Other Contiue with Low catheter as she continues to regain strength and mobility. Catheter was changed last week. RTC in 3 weeks for symptom reassessment and discuss voiding trial at that time. 09/27/2024 Other DC Low and perform VT today. Encouraged timed and double voiding to retrain bladder. RTC in 4-6 weeks with UA/PVR. If she has any issues with retention at her facility, they can replace a catheter. Plan Of Treatment Next Appt Details Provider Name:KADY AARON, 0 11/08/2024 11:00:00 AM, [address] [place], [address], Insurance Providers Payer Name Payer Address Payer Phone Subscriber Number Group Number Insured Name Patient Relationship to Insured Coverage Start Date Coverage End Date [facility] Medicare Advantage PPO [address] [address] [place], [place] [id number] [place] Susan Self - patient is the insured Medical (General) History Medical History History ICD Code hx of gastrointestinal hemorrhage Diverticuli of intestine Chronic kidney disease Vascular disorder or intestine hydronephrosis anemia acute kidney failure Acute respiratory failure Diastolic congestive heart failure Recurrent UTI Diabetes mellitus, type 2 Urinary retention Surgical History Surgery Date(Month/Year) Tonsillectomy and adnoidectomy Tubal ligation
--- OUTSIDE RECORDS SUMMARY | 2024-10-19 14:39 | XMS_ITS | Data Portability ---
Author Organization KEI Herrera [facility] Address [address] [address] Assessment No assessment recorded. Plan of Treatment Reminders Order Date Submit Date Provider Last Modified By Organization Details Last Modified Time Details Appointments None record ed. Lab None record ed. Referral None record ed. Procedures None record ed. Surgeries None record ed. Imaging None record ed. Medication Orders None record ed. Patient TargetsNo targets recorded. Patient Instructions Encounter Date Encounter Id Patient Instructions Last Modified By Organization Details Last Modified Time 08/13/2024 [id number] seen in ER. Hemoglobin and Cr stable. Not on any blood pressure meds. feeling better. Not available 08/13/2024 14:02:13 08/20/2024 [id number] Cr improved from 2 to 1.7. Potassium improved. blood pressure good. Not available 08/20/2024 13:28:40 09/12/2024 [id number] Recent GI bug, worsening SOB. Oxygen increased to 4lpm. d/c spiriva, start budesonide bid. Stat BMP,CBC. start prednisone 40mg x 5 days [email or web address] Not available 09/17/2024 09:02:44 09/24/2024 [id number] feeling better after fluids working well with therapy labs reviewed [email or web address] Not available 09/25/2024 15:42:36 10/17/2024 [id number] Low oxygen, abdominal breathing. Recommended going to ER for evaluation. patient refused and would like to seek treatment at [facility] first. Will start prednisone taper. Lasix 20mg and Potassium 10meq x 5 days. [email or web address] Not available 10/18/2024 16:37:25 Reason for Referral None Reported. Results Created Date Observation Date Name Description Value Unit Range Abnormal Flag Note LastModifiedBy Organization Detail LastModifiedTime Result Notes None recorded. Problems Name Problem SNOMED Code Status Onset Date Resolution Date Notes Provider Name and Address Organization Details Recorded Time Tonsillect darian Active 2020 Jessica cárdenas [facility] 4 10:49:44 Pneumonia 279064904 Active 2020 Jessica Plerika cárdenas [facility] 4 10:49:41 Type 2 diabetes mellitus without complicati on 542712781 Active 2021 Jessicaselina Rocha melia [facility] 4 10:49:46 Chronic kidney disease stage 3 due to type 2 diabetes mellitus 912245276264 Active [address], [address] , [facility] 3 10:23:10 Acute-on-c hronic renal failure 818514486 Active 2023 ASHLEEANN ZURITA melia [facility] 4 12:31:38 Deep venous thrombosis 040093511 Active 2023 ASHLEE DL cárdenas [facility] 4 12:32:13 Diabetes mellitus without complicati on 631643885 Active 2022 ASHLEE cárdenas [facility] 3 09:31:20 Chronic kidney disease stage 3 342295140 Active 2022 ASHLEE cárdenas [facility] 3 09:31:27 Chronic obstructiv e pulmonary disease 85923420 Active 2022 ASHLEE cárdeans [facility] 3 09:31:33 Problem Notes None recorded. Procedures Surgical History Date Name Laterality Status Provider Name and Address Organization Details Recorded Time [facility]13[facility]13 [facility] 09:13:28 Imaging Results None recorded. Procedure Notes None recorded. Medical Equipment None Reported. Allergies Allergen ID Allergen Name Allergen Category Reaction Reaction Severity Criticality Documentation Date Start Date Code Code System Note Provider Name and Address Organization Details Recorded Time 77001 Product containin g penicilli n and antibioti c (product) medicatio n anaphylax is severe high 04/01/20232019 68224 05 SNOMED [facility] 4 12:46:18 Medications Name Sig Start Date Stop Date Status Note LastModified by Organization Details LastModified Time potassium chloride ER 10 mEq tablet,ex tended release TAKE ONE TABLET BY MOUTH EVERY OTHER DAY as needed for ONLY with bumex active Not Available Not Available No t Available tamsulosi n 0.4 mg capsule at bedtime active Dr. Zamorano Not Available Not Available Not Available ferrous sulfate 325 mg (65 mg iron) tablet daily 2021 active Not Available Not Available Not Avai lable bumetanid e 0.5 mg tablet TAKE 1 TABLET BY MOUTH EVERY DAY active Not Available Not Available No t Available diltiazem CD 120 mg capsule,e xtended release 24 hr TAKE 1 CAPSULE BY MOUTH EVERY DAY active Not Available Not Available No t Available bumetanid e 1 mg tablet active Not Available Not Available Not Available nystatin 100,000 unit/gram topical powder active Not Available Not Available Not Available albuterol sulfate HFA 90 mcg/actua tion aerosol inhaler INHALE TWO PUFFS BY MOUTH EVERY 8 HOURS NEEDED FOR SHORTNES S OF BREATH or wheezing active Not Available Not Available No t Available sertralin e 50 mg tablet TAKE 1 TABLET BY MOUTH EVERY DAY active Not Available Not Available No t Available Bactrim 400 mg-80 mg tablet twice a day, as needed 04/[address] Zamorano ; 0; Recorded 07/14/20 2:30PM by Radha Zurita, RN, Office Visit; Not Available Not Available Not Available Spiriva with [employer] r 18 mcg and inhalatio n capsules INHALE 1 CAPSULE EVERY DAY BY INHALATI ON ROUTE active Not Available Not Available No t Available BD Ultra-Fin e Mini Pen Needle 31 gauge x 3/16 USE ONCE DAILY AT BEDTIME active Not Available Not Available No t Available melatonin at bedtime 04/12 completed 0; Recorded 07/14/20 21 2:31PM by Radha Zurita, RN, Office Visit; Not Available Not Available Not Available Advair HFA 45 mcg-21 mcg/actua tion aerosol inhaler INHALE 2 PUFFS BY MOUTH TWICE A DAY active Not Available Not Available No t Available Dulera 100 mcg-5 mcg/actua tion HFA aerosol inhaler TAKE 2 PUFFS BY MOUTH TWICE A DAY active Not Available Not Available No t Available Eliquis 2.5 mg tablet TAKE 1 TABLET BY MOUTH TWICE A DAY 2023 active Not Available Not Available Not Avai lable Tresiba FlexTouch U-200 insulin 200 unit/mL (3 mL) subcutane ous pen INJECT 20 UNITS SUBCUTAN EOUSLY 04/12 completed Not Available Not Available Not Available Vitals Date Recorded Body height Heart rate Respiratory rate Body temperature Oxygen saturation Oxygen saturation in Arterial blood by Pulse oximetry Systolic blood pressure Diastolic blood pressure Provider Name and Address Organization Details Last Updated DateTime 4 157.48 cm 78 /min 22 /min 98.5 [degF] 94 % 94 % 138 mm[Hg] 77 mm[Hg] [facility] 4 13:57:15 Date Recorded Body height Heart rate Respiratory rate Body temperature Oxygen saturation Oxygen saturation in Arterial blood by Pulse oximetry Systolic blood pressure Diastolic blood pressure Provider Name and Address Organization Details Last Updated DateTime 4 157.48 cm 80 /min 20 /min 97.8 [degF] 95 % 95 % 140 mm[Hg] 77 mm[Hg] [facility] 4 13:14:25 Date Recorded Body height Heart rate Respiratory rate Body temperature Oxygen saturation Oxygen saturation in Arterial blood by Pulse oximetry Inhaled oxygen flow rate Systolic blood pressure Diastolic blood pressure Provider Name and Address Organization Details Last Updated DateTime 5 157.48 cm 80 /min 22 /min 98.8 [degF] 93 % 93 % 4 L/min 132 mm[Hg] 78 mm[Hg] ASHLEE ZURITA [facility] 5 09:00:15 Date Recorded Body height Body mass index (BMI) Body weight Heart rate Respiratory rate Body temperature Oxygen saturation Oxygen saturation in Arterial blood by Pulse oximetry Systolic blood pressure Diastolic blood pressure Provider Name and Address Organization Details Last Updated DateTime 5 157.48 cm 37.9 kg/m2 72092.6 2 g 87 /min 18 /min 98.6 [degF] 94 % 94 % 132 mm[Hg] 74 mm[Hg] ASHLEE ZURITA [facility] 5 13:32:43 Date Recorded Body height Heart rate Respiratory rate Body temperature Oxygen saturation Oxygen saturation in Arterial blood by Pulse oximetry Systolic blood pressure Diastolic blood pressure Provider Name and Address Organization Details Last Updated DateTime 5 157.48 cm 92 /min 24 /min 98.5 [degF] 90 % 90 % 140 mm[Hg] 70 mm[Hg] ASHLEE ZURITA [facility] 5 16:31:52 Social History Question Answer Notes LastModified by Organizat ion Details LastModified Time Tobacco Smoking Status Never Smoker ASHLEE ZURITA [facility] 01/04/2023 10:00:03 Are You Blind Or Do You Have Difficulty Seeing? No [email or web address] Information not available 01/04/2023 Are You Deaf Or Do You Have Serious Difficulty Hearing? No [email or web address] Information not available 01/04/2023 Have You Had Direct Contact, Or Contact During Intimacy, With Monkeypox Rash, Scabs, Or Body Fluids From A Person With Monkeypox? No [email or web address] Information not available 01/04/2023 Have You Recently Traveled Abroad? No [email or web address] Information not available 01/04/2023 Sex: Unknown Functional Status Question Answer Note LastModified by Organizat ion Details LastModified Time Do you have difficulty walking or climbing stairs? Yes Information not available 01/04/2023 Are you able to walk? [email or web address] Information not available 01/04/2023 Do you have difficulty doing errands alone? No [email or web address] Information not available 01/04/2023 Are you able to care for yourself? Yes [email or web address] Information not available 01/04/2023 Do you have difficulty dressing or bathing? No [email or web address] Information not available 01/04/2023 Mental Status Question Answer Note LastModified by Organization D etails LastModified Time Do you have difficulty concentrating, remembering or making decisions? No [email or web address] Information no t available 01/04/2023 Family History Nothing Reported Notes:Father age 93 with deg enerative arthritis and hypertension, Brothers are healthy, Mother age 91 after several strokes, Children are healthy. Maternal Grandmother: Diabetes, Hypertension Mother: Hypertension Paternal Grandmother: Diabetes Medical History No medical history recorded. Gynecological HistoryNo gynecological history recorded. Obstetrics History GPAL:G 0 P 0 0 0 0 Immunizations Vaccine Type Date Status Note Provider Nam e and Address Organization Details Recorded Time COVID-19 vaccine, vector-nr, rS-Ad26, PF, 0.5 mL 1 completed Jessica cárdenas [facility] 04/20/2024 10:49:53 pneumococcal, unspecified formulation 8 completed Not Available [facility] 04/01/2023 02:23:28 Influenza, split virus, trivalent, preservative 8 completed Not Available [facility] 04/01/2023 02:23:28 pneumococcal polysaccharide PPV23 0 completed Not Available [facility] 04/01/2023 02:23:28 Influenza, split virus, trivalent, preservative 1 completed Not Available [facility] 04/01/2023 02:23:28 Influenza, split virus, trivalent, preservative 2 completed Not Available [facility] 04/01/2023 02:23:28 Past Encounters Encounter ID Performer Location Encounter Start Date Encounter Closed Date Diagnosis/Indication Diagnosis SNOMED-CT Code Diagnosis ICD10 Code Diagnosis Note [id number] Jeff Banegas DO [facility] ([facility]) [address] [place] [address] 01/04/2023 09:47:30 01/04/2023 17:02:17 Diabetes mellitus without complication 755111966 E11.21 Chronic ki dney disease stage 3 853618985 N18.30 Chronic ob structive pulmonary disease 81884359 J44.9 Major depr essive disorder 450482697 F32.9 [id number] Jeff Banegas DO [facility] ([facility]) [address] [place] [address] 02/15/2023 13:28:44 02/15/2023 20:46:53 Diabetes mellitus without complication 550852568 E11.21 Has not been on insulin the past month and running great.She will stay off insulin and continue to monitor. [id number] Jeff Banegas DO [facility] ([facility]) [address] [place] [phone] 5 04/12/2023 09:49:34 04/12/2023 12:50:49 Diabetes mellitus without complication 224081920 E11.21 stopped insulin last time; a1c 5.8 Chronic ki dney disease stage 3 due to type 2 diabetes mellitus 1385247737 05 N18.31 renal function stable [id number] Jeff Banegas DO [facility]) [address] [place] [phone] 03/26/2024 12:22:12 03/26/2024 15:44:55 Hospital inpatient stay within past 30 days 8518545492 106 Z76.89 Acute-on-c hronic renal failure 118424300 N17.9 Chronic ob structive pulmonary disease 42346278 J44.9 Diabetes m ellitus without complication 940454187 E11.21 stopped insulin last time; a1c 5.8 Deep venou s thrombosis 931895600 I82.267 [id number] Jeff Banegas DO [facility]) [address] [place] [phone] 04/02/2024 08:07:51 04/03/2024 08:43:11 [id number] Jeff Banegas DO [facility] ([facility]) [address] [place] [address] 04/09/2024 08:05:56 04/09/2024 16:08:34 Chronic obstructive pulmonary disease 14332509 J44.9 Diabetes m ellitus without complication 024933505 E11.21 Chronic ki dney disease stage 3 622232020 N18.30 [id number] Jeff Banegas DO [facility] ([facility]) [address] [place], [place] [address] 08/06/2024 07:59:10 08/13/2024 10:06:18 Diabetes mellitus without complication 351852184 E11.21 Chronic ob structive pulmonary disease 85792750 J44.9 Hospital i npatient stay within past 30 days 6933339006 106 Z76.89 Acute post hemorrhagic anemia 945756578 D62 Ischemic colitis 4897661 4 K55.9 Diverticul itis of colon with perforation 04537233 K57.20 Septic shock 19003079 R6 5.21 [id number] Jeff Banegas [facility] ([facility]) [address] [place] [phone] 08/13/2024 08:07:35 08/19/2024 11:21:30 Vasovagal syncope 150917989 R55 Chronic ki dney disease stage 3 695149272 N18.30 Chronic ob structive pulmonary disease 78242220 J44.9 Type 2 syed betes mellitus without complication 135774812 E11.9 [id number] Jeff Banegas DO [facility] ([facility]) [address] [place] [address] 08/20/2024 08:19:07 08/21/2024 15:07:08 Diabetes mellitus without complication 078505535 E11.21 Chronic ob structive pulmonary disease 90868798 J44.9 Chronic ki dney disease stage 3 420878647 N18.30 [id number] Jeff Banegas DO [facility] ([facility]) [address] [place] [address] 09/12/2024 17:35:01 09/17/2024 14:19:37 Chronic obstructive pulmonary disease 81539767 J44.9 Viral gastroenteritis 11 5773232 A08.4 [id number] Jeff Banegas DO [facility] ([facility]) [address] [place] [address] 09/24/2024 08:25:07 09/26/2024 10:08:43 Diabetes mellitus without complication 817333351 E11.21 Chronic ob structive pulmonary disease 31877859 J44.9 Chronic ki dney disease stage 3 261785054 N18.30 [id number] Jeff Banegas DO [facility] ([facility]) [address] [place] [address] 10/17/2024 16:23:49 10/19/2024 07:11:30 Chronic obstructive pulmonary disease 39973182 J44.9 Respiratory distress 271 102479 R06.03 Health Concerns Section Related Observation LastModified by Organization Detai ls LastModified Time None Recorded Concern Status LastModified by Organization Details LastModified Time None Recorded Advance Directives Directive None Recorded Payers Encounter Date Sequence Insurance Name Policy Number Policy Perry Covered Member ID Perry Member ID Guarantor Name 08/13/2024 1 [facility] (MEDICARE REPLACEMENT/A DVANTAGE - PPO) [id number] Susan Resendiz [id number] Susan Resendiz 08/20/2024 1 [facility] (MEDICARE REPLACEMENT/A DVANTAGE - PPO) [id number] Susan Resendiz [id number] Susan Resendiz 09/12/2024 1 [facility] (MEDICARE REPLACEMENT/A DVANTAGE - PPO) [id number] Susan Resendiz [id number] Susan Resendiz 09/24/2024 1 [facility] (MEDICARE REPLACEMENT/A DVANTAGE - PPO) [id number] Susan Resendiz [id number] Susan Resendiz 10/17/2024 1 [facility] (MEDICARE REPLACEMENT/A DVANTAGE - PPO) [id number] Susan Resendiz [id number] Susan Resendiz Notes Date Note Type Note Provider Name and Address Organization Details Recorded Time 08/13/2024 text/html Diabetes F/UReported bypatient.Contex t:checking feet regularly Associated Symptoms:no confusion; no skin infections; no UTIs Jeff Banegas DO [address] [place] [address], [phone], [facility] 08/19/2024 11:04:20 08/20/2024 text/html Diabetes F/UReported bypatient.Contex t:checking feet regularly Associated Symptoms:no confusion; no skin infections; no UTIs Jeff Banegas DO [address] [place] [address], [phone], [facility] 08/21/2024 08:42:54 09/12/2024 text/html Diabetes F/UReported bypatient.Contex t:checking feet regularly Associated Symptoms:no confusion; no skin infections; no UTIs Jeff Banegas [address], [address], [facility] 09/17/2024 12:34:38 09/24/2024 text/html Diabetes F/UReported bypatient.Cristyx t:checking feet regularly Associated Symptoms:no confusion; no skin infections; no UTIs Jeff Banegas DO [address] [place] [address], [phone], [facility] 09/25/2024 15:42:58 10/17/2024 text/html Diabetes F/UReported bypatient.Cristyx t:checking feet regularly Associated Symptoms:no confusion; no skin infections; no UTIs Jeff Banegas DO [address] [place] [address], [phone], [facility] 10/18/2024 17:19:36 OBGyn Episode No OBEpisode recorded.
--- OUTSIDE RECORDS SUMMARY | 2024-10-19 14:39 | XMS_ITS | Continuity of Care Document ---
Author Organization [facility] Carlos Avila, [facility] ([facility]) Address [address] [place] [address] Assessment No assessment recorded. Plan of Treatment [...] Modified By Organization Details Last Modified Time 09/24/2024 [id number] feeling better after fluids working well with therapy labs reviewed [email or web address] Not available 09/25/2024 15:42:36 Reason for Referral None Reported. Problems Name Problem SNOMED Code Status Onset Date Resolution Date Notes Provider Name and Address Organization Details Recorded Time Tonsillect darian Active 2020 [facility] 10:49:44 Pneumonia 478013759 Active 2020 [facility] 4 10:49:41 Type 2 diabetes mellitus without complicati on 443623427 Active 2021 [facility] 4 10:49:46 Chronic kidney disease stage 3 due to type 2 diabetes mellitus 567440521019 Active 2022 Jeff Banegas DO [address] [place] [address], [address] , [facility] 3 10:23:10 Acute-on-c hronic renal failure 982040816 Active 2023 [facility] 4 12:31:38 Deep venous thrombosis 953671467 Active 2023 [facility] 4 12:32:13 Diabetes mellitus without complicati on 905742404 Active 2022 [facility] 3 09:31:20 Chronic kidney disease stage 3 255383322 Active 2022 [facility] 3 09:31:27 Chronic obstructiv e pulmonary disease 38092988 Active 2022 [facility] 3 09:31:33 Problem Notes None recorded. Procedures Surgical History Date Name Laterality Status Provider Name and Address Organization Details Recorded Time 7 [facility]/01[facility]2023 09:13:13 4 mammography completed [facility] 06/01/2023 09:13:28 Imaging Results None recorded. Procedure Notes None recorded. Medical Equipment None Reported. Allergies Allergen ID Allergen Name Allergen Category Reaction Reaction Severity Criticality Documentation Date Start Date Code Code System Note Provider Name and Address Organization Details Recorded Time 61523 Product containin g penicilli n and antibioti c (product) medicatio n anaphylax is severe high 04/01/20232019 83071 05 SNOMED [facility] 4 12:46:18 Medications Name Sig Start Date [...] completed Dr. Zamorano ; 0; Recorded 07/14/20 21 2:30PM by Radha Zurita, RN, Office Visit; [...] Not Available Vitals Date Recorded Body height Body mass index (BMI) Body weight Heart rate Respiratory rate Body temperature Oxygen saturation Oxygen saturation in Arterial blood by Pulse oximetry Systolic blood pressure Diastolic blood pressure Provider Name and Address Organization Details Last Updated DateTime 5 157.48 cm 37.9 kg/m2 07034.6 2 g 87 /min 18 /min 98.6 [degF] 94 % 94 % 132 mm[Hg] 74 mm[Hg] ASHLEE ZURITA [facility] 5 13:32:43 Social History Question Answer Notes LastModified by [employer] Details LastModified Time Tobacco Smoking Status Never Smoker ASHLEE ZURITA [facility] 01/04/2023 10:00:03 Are You Blind Or Do You Have Difficulty Seeing? No [email or web address] Information not available 01/04/2023 Are You Deaf Or Do You Have Serious Difficulty Hearing? No [email or web address] Information not available 01/04/2023 Have You Had Direct Contact, Or Contact During Intimacy, With Monkeypox Rash, Scabs, Or Body Fluids From A Person With Monkeypox? No [email or web address] Information not available 01/04/2023 Have You Recently Traveled Abroad? No [email or web address] Information not available 01/04/2023 Sex: Unknown Functional Status Question Answer Note LastModified by [employer] Details LastModified Time Do you have difficulty walking or climbing stairs? Yes [email or web address] Information not available 01/04/2023 Are you able to walk? YESASSIST [email or web address] Information not available 01/04/2023 Do you have difficulty doing errands alone? No [email or web address] Information not available 01/04/2023 Are you able to care for yourself? Yes [email or web address] Information not available 01/04/2023 Do you have difficulty dressing or bathing? No [email or web address] Information not available 01/04/2023 Mental Status Question Answer Note LastModified by Organization D etails LastModified Time Do you have difficulty concentrating, remembering or making decisions? No [email or web address] Information no t available 01/04/2023 Family History [...] PF, 0.5 mL 1 completed Jessica c[facility]denas [facility] 04/20[facility]2024 10:49:53 pneumococcal, unspecified formulation 8 completed Not Available [facility] 04/01/2023 02:23:28 Influenza, split virus, trivalent, preservative 8 completed Not Available [facility] 04/01/2023 02:23:28 pneumococcal polysaccharide PPV23 0 completed Not Available [facility] 04/01/2023 02:23:28 Influenza, split virus, trivalent, preservative 1 completed Not Available [facility] 04/01/2023 02:23:28 Influenza, split virus, trivalent, preservative 2 completed Not Available [facility] 04/01/2023 02:23:28 Past Encounters Encounter ID Performer Location Encounter Start Date Encounter Closed Date Diagnosis/Indication Diagnosis SNOMED-CT Code Diagnosis ICD10 Code Diagnosis Note [id number] Jeff Banegas DO [facility] ([facility]) [address] [place] [address] 09/12/2024 17:35:01 09/17/2024 14:19:37 Chronic obstructive pulmonary disease 37487503 J44.9 Viral gastroenteritis 11 3244505 A08.4 [id number] Jeff Banegas DO [facility]) [address] [place] [address] 09/24/2024 08:25:07 09/26/2024 10:08:43 Diabetes mellitus without complication 976991042 E11.21 Chronic ob structive pulmonary disease 63280192 J44.9 Chronic ki dney disease stage 3 514843218 N18.30 Health Concerns Section Related Observation LastModified by Organization Detai ls LastModified Time None Recorded Concern Status LastModified by Organization Details LastModified Time None Recorded Payers Encounter Date Sequence Insurance Name Policy Number Policy Perry Covered Member ID Perry Member ID Guarantor Name 09/24/[address] [facility] (MEDICARE REPLACEMENT/A DVANTAGE - PPO) [id number] Susan Resendiz [id number] Susan Resendiz Notes Date Note Type Note Provider Name and Address Organization Details Recorded Time 09/24/2024 text/html Diabetes F/UReported bypatient.Contex t:checking feet regularly Associated Symptoms:no confusion; no skin infections; no UTIs Jeff Banegas DO [address] [place] [address], [phone], [facility] 09/25/2024 15:42:58 OBGyn Episode No OBEpisode recorded.
--- OUTSIDE RECORDS SUMMARY | 2024-10-19 14:39 | XMS_ITS ---
Author Organization [facility] Address [address] [place] [address] Care Team Providers Care Insurance Agency Owner Name Role Phone Jeff Banegas Primary Care Provider AKIKO Blanton Unavailable [phone] REASON FOR VISIT Urinary Retention Encounters Encounter Location Date Provider Diagnosis [facility] [address] [facility] [place] [address] 07/30/2024 AKIKO FRANKS Plan Of Treatment Next Appt Details Provider Name:KADY AARON, 0 11/08/2024 11:00:00 AM, [address] [place], [address], Progress Notes * Susan FIELDSDOB:1945 (79 yo F)Acc No.[id number]:07/30/2024 Patient:?Susan FIELDS :1945???Age:79 Y???Sex:Female Address:[address], [place], [address] * true * Date:? 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
--- OUTSIDE RECORDS SUMMARY | 2024-10-19 14:39 | XMS_ITS | Continuity of Care Document ---
Author Organization [facility] Carlos Avila, [facility] ([facility]) Address [address] [place] [address] Assessment No assessment recorded. Plan of Treatment [...] Modified By Organization Details Last Modified Time 10/17/2024 [id number] Low oxygen, abdominal breathing. Recommended going to ER for evaluation. patient refused and would like to seek treatment at SNF first. Will start prednisone taper. Lasix 20mg and Potassium 10meq x 5 days. [email or web address] Not available 10/18/2024 16:37:25 Reason for Referral None Reported. Problems Name Problem SNOMED Code Status Onset Date Resolution Date Notes Provider Name and Address Organization Details Recorded Time Tonsillect darian Active 2020 [facility] 10:49:44 Pneumonia 627057873 Active 2020 [facility] 4 10:49:41 Type 2 diabetes mellitus without complicati on 948206468 Active 2021 [facility] 4 10:49:46 Chronic kidney disease stage 3 due to type 2 diabetes mellitus 558132586911 Active 2022 Jeff Banegas, [address], [address] , [facility] 3 10:23:10 Acute-on-c hronic renal failure 068328082 Active 2023 ASHLEE cárdenas, [facility] 4 12:31:38 Deep venous thrombosis 263442442 Active 2023 ASHLEE cárdenas, [facility] 4 12:32:13 Diabetes mellitus without complicati on 510149679 Active 2022 ASHLEE cárdenas [facility] 3 09:31:20 Chronic kidney disease stage 3 349396600 Active 2022 ASHLEEANN cárdenas [facility] 3 09:31:27 Chronic obstructiv e pulmonary disease 79211501 Active 2022 ASHLEE cárdenas [facility] 3 09:31:33 Problem Notes None recorded. Procedures Surgical History Date Name Laterality Status Provider Name and Address Organization Details Recorded Time 7 colonoscopy completed SHYLAKARSON BUSBY [facility] 06/01/2023 09:13:13 4 [facility]ography [facility]/01/2023 09:13:28 Imaging Results None recorded. Procedure Notes None recorded. Medical Equipment None Reported. Allergies Allergen ID Allergen Name Allergen Category Reaction Reaction Severity Criticality Documentation Date Start Date Code Code System Note Provider Name and Address Organization Details Recorded Time 66769 Product containin g penicilli n and antibioti c (product) medicatio n anaphylax is severe high 04/01/20232019 17891 05 SNOMED Jessica Rocha melia [facility] 4 12:46:18 Medications Name Sig Start Date [...] Recorded 07/14/20 21 2:31PM by Radha Zurita, SPEEDY, Office Visit; Not Available Not Available Not [...] % 140 mm[Hg] 70 mm[Hg] ASHLEE ZURITA [facility] 5 16:31:52 Social History Question Answer Notes LastModified by [employer] Details LastModified Time Tobacco Smoking Status Never Smoker ASHLEE DL [facility] 01/04/2023 10:00:03 Are You Blind Or Do You Have Difficulty Seeing? No [email or web address] Information not available 01/04/2023 Are You Deaf Or Do You Have Serious Difficulty Hearing? No [email or web address] Information not available 01/04/2023 Have You Had Direct Contact, Or Contact During Intimacy, With Monkeypox Rash, Scabs, Or Body Fluids From A Person With Monkeypox? No [email or web address] Information not available 01/04/2023 Have You Recently Traveled Abroad? No Information not available 01/04/2023 Sex: Unknown Functional Status Question Answer Note LastModified by [employer] Details LastModified Time Do you have difficulty walking or climbing stairs? Yes Information not available 01/04/2023 Are you able to walk? YESASSIST [email or web address] Information not available 01/04/2023 Do you have difficulty doing errands alone? No [email or web address] Information not available 01/04/2023 Are you able to care for yourself? Yes [email or web address] Information not available 01/04/2023 Do you have difficulty dressing or bathing? No Information not available 01/04/2023 Mental Status Question Answer Note LastModified by Organization D etails LastModified Time Do you have difficulty concentrating, remembering or making decisions? No [email or web address] Information no t available 01/04/2023 Family History [...] vector-nr, rS-Ad26, PF, 0.5 mL 1 completed [facility] 04/20/2024 10:49:53 pneumococcal, unspecified formulation 8 completed Not Available [facility] 04/01/2023 02:23:28 Influenza, split virus, trivalent, preservative 8 completed Not Available [facility] 04/01/2023 02:23:28 pneumococcal polysaccharide PPV23 0 completed Not Available [facility] 04/01/2023 02:23:28 Influenza, split virus, trivalent, preservative 1 completed Not Available [facility] 04/01/2023 02:23:28 Influenza, split virus, trivalent, preservative 2 completed Not Available [facility] 04/01/2023 02:23:28 Past Encounters Encounter ID Performer Location Encounter Start Date Encounter Closed Date Diagnosis/Indication Diagnosis SNOMED-CT Code Diagnosis ICD10 Code Diagnosis Note [id number] Jeff Banegas DO [facility] ([facility]) [address] [place] [address] 09/24/2024 08:25:07 09/26/2024 10:08:43 Diabetes mellitus without complication 615336612 E11.21 Chronic ob structive pulmonary disease 91729793 J44.9 Chronic ki dney disease stage 3 642252278 N18.30 [id number] Jeff Banegas DO [facility] ([facility]) [address] [place] [address] 10/17/2024 16:23:49 10/19/2024 07:11:30 Chronic obstructive pulmonary disease 36855164 J44.9 Respiratory distress 271 356370 R06.03 Health Concerns Section Related Observation LastModified by Organization Marvaai ls LastModified Time None Recorded Concern Status LastModified by Organization Details LastModified Time None Recorded Payers Encounter Date Sequence Insurance Name Policy Number Policy Perry Covered Member ID Perry Member ID Guarantor Name 10/17/2024 1 [facility] (MEDICARE REPLACEMENT/A DVANTAGE - PPO) [id number] Susan Resendiz [id number] Susan Resendiz Notes Date Note Type Note Provider Name and Address Organization Details Recorded Time 10/17/2024 text/html Diabetes F/UReported bypatient.Contex t:checking feet regularly Associated Symptoms:no confusion; no skin infections; no UTIs Jeff Banegas DO [address] [place] [address], [address], [facility] 10/18/2024 17:19:36 OBGyn Episode No OBEpisode recorded.
--- OUTSIDE RECORDS SUMMARY | 2024-10-19 14:39 | XMS_ITS ---
Author Organization Unknown TREATMENT PLAN [facility] Start Date Provider Encounter for Check-up [id number] Eladio eubanks [facility]
--- OUTSIDE RECORDS SUMMARY | 2024-10-19 14:39 | XMS_ITS ---
Author Organization [facility], [facility] Address [address] [place] [address] Care Team Providers Care Industrial Relations Specialist Name Role Phone Jeff Banegas Primary Care Provider AKIKO Blanton Unavailable [phone] KADY AARON Unavailable [phone] Allergies Allergen (clinical drug ingredient) Drug/Non Drug Allergy documented on EMR Reaction Allergy Type Onset Date Status Substance with penicillin structure and antibacterial mechanism of action (substance) Penicillins Unknown Drug Allergy Active REASON FOR VISIT UTI/UR Medications Medication SIG (Take, Route, Frequency, Duration) Notes Start Date End Date Status Tylenol 325 MG 1 tablet as needed O rally every 6 hrs Active Milk of Magnesia 400 MG/5ML 5 mL at leas t 4 hours between doses as needed Orally Four times a day Active Folic Acid 1 MG 1 tablet Orally Once a day Active Levalbuterol HCl 0.63 MG/3ML 3 mL as needed Inhalation every 8 hrs Active Pantoprazole Sodium 40 MG 1 tablet 1/2 t o 1 hour before morning meal Orally Once a day Active Sertraline HCl 50 MG 1 tablet Orally Onc e a day Active Spiriva Respimat 1.25 MCG/ACT 2 puffs Inhalation Once a day Active Ipratropium [place] Active Albuterol Sulfate HFA 108 (90 Base) MCG/ACT 1 puff as needed Inhalation every 4 hrs Active Social History Tobacco Use: Social History Observation Description Date Details (start date - stop date) Never Smoker NA - NA Tobacco Control (Standard) Question Answer Notes Tobacco use: Nonsmoker Problems Problem Type SNOMED Code ICD Code Onset Dates Problem Status W/U Status Risk Notes Problem Catheterization of urinary bladder (410097527) Low catheter in place (Z96.0) Active confirmed Problem Chronic kidney disease stage 4 (620482292) Chronic kidney disease, stage 4 (severe) (N18.4) Active confirmed Vital Signs Blood pressure systolic 98 mm Hg 08/16/20 24 Blood pressure diastolic 59 mm Hg 024 Heart Rate 69 /min 08/16/2024 Height 62 in 08/16/2024 Weight 160 lbs 08/16/2024 BMI 29.26 kg/m2 08/16/2024 Height-cm 157.48 cm 08/16/2024 Weight-kg 72.57 kg 08/16/2024 Encounters Encounter Location Date Provider Diagnosis [facility] [email or web address] [address] [place] [address] 08/16/2024 KADY LOPEZROSCOE Urinary retention R3 3.9 ; Low catheter in place Z96.0 ; Impaired mobility Z74.09 ; History of hydronephrosis Z87.448 ; History of UTI Z87.440 ; History of recent hospitalization Z92.89 ; Chronic kidney disease, stage 4 (severe) N18.4 and Family history of kidney disease Z84.1 Assessments Encounter Date Diagnosis (ICD Code) Assessment Notes Treatment Notes Treatment Clinical Notes Section Notes 08/16/2024 Urinary retention (ICD-10 - R33.9) 08/16/[address] (ICD-10 - Z96.0) 08/16/2024 Impaired mobility (ICD-10 - Z74.09) 08/16/2024 History of hydronephrosis (ICD-10 - Z87.448) 08/16/2024 History of UTI (ICD-10 - Z87.440) 08/16/2024 History of recent hospitalization (ICD-10 - Z92.89) 08/16/2024 Chronic kidney disease, stage 4 (severe) (ICD-10 - N18.4) 08/16/2024 Family history of kidney disease (ICD-10 - Z84.1) 08/16/2024 Other Contiue with Low catheter as she continues to regain strength and mobility. Catheter was changed last week. RTC in 3 weeks for symptom reassessment and discuss voiding trial at that time. Plan Of Treatment Treatment Notes Assessment Notes Other Contiue with Low c atheter as she continues to regain strength and mobility. Catheter was changed last week. RTC in 3 weeks for symptom reassessment and discuss voiding trial at that time. Next Appt Details Follow Up: 3 weeks, Reason: discuss [place] Provider Name:KADY AARON, 0 11/08/2024 11:00:00 AM, [address] [facility] [place], [address], Progress Notes * Susan FIELDS EDOB:[birth year] (79 yo F)Acc No.[id number]:08/16/2024 Progress Notes Patient:Susan DORADO Provider:?Kady Aaron APRN-CONTINUOUS YARN DYEING MACHINE OPERATOR :1945???Age:79 Y???Sex:Female D ate:08/16/2024 Address:[address], [place], [place] Pcp:Jeff Banegas Subjective: * Chief Complaints: * ???UTI/UR * HPI: ???Migrated HPI:? Ms. Fields is a 79-year-old female new patient referred after hospitalization at [facility] for urinary retention.?PMH includes CKD, hypoxemia, [...] the bathroom, but denies problems with incontinence. Denies fever, flank pain, gross hematuria or [...] Social History:?Tobacco Use:?Tobacco Control (Standard)?Tobacco use:?Nonsmoker.? * Medications:?TakingTylenol 3 25 MG Tablet 1 tablet as needed Orally every 6 hrs Ipratropium [place] Spiriva Respimat 1.25 MCG/ACT Aerosol Solution 2 [...] List reviewed and reconciled with the patientTaking Tylenol 325 MG Tablet 1 tablet as needed Orally every 6 hrs Taking Ipratropium [place] Taking Spiriva Respimat 1.25 MCG/ACT Aerosol Solution [...] reconciled with the patient * Allergies:?Penicillins: Varun salvador[Allergies Verified] Objective: * Vitals:?BP: 98/59 mm Hg, HR: 69 /min, Wt: 160 lbs, Wt-k.57 kg, Ht: 62 in, Ht-cm: 157.48 cm, BMI: 29.26 Index, Body Surface Area: 1.78. * Examination: ???General Examination: ?General appearance:?alert, elderly, female, well-nourished and in no acute distress, in a wheelchair.?Skin:?skin is warm and dry, with no rashes, good skin turgor and normal hair distribution.?Heart:?regular rate.?Lungs:?symmetrical, non labored respirations, on portable O2.?Abdomen:?soft, non tender, non distended.?Back:?no CVA tenderness.? Assessment: * Assessment: 1.?Urinary retention - R33.9 (Primary)???2.?Low catheter in place - Z96.0???3.?Impaired mobility - Z74.09???4.?History of hydronephrosis - Z87.448???Specify :right???5.?History of UTI - Z87.440???6.?History of recent hospitalization - Z92.89???7.?Chronic kidney disease, stage 4 (severe) - N18.4???8.?Family history of kidney disease - Z84.1??? Plan: * Treatment: * Procedure Codes:? * Follow Up:?3 weeks (Reason: discuss [place]) * Billing Information: * Visit Code:? 00644 Office Visit, New Pt., Level 3. * Procedure Codes:? * IC OFFICE COORDINATOR Sign off status: Completed true * Provider:?Kady Aaron APRN-CONTINUOUS YARN DYEING MACHINE OPERATOR Date:?08/04 Generated for Vijay vizcaino/Jennie/Aniaitting on:?10/19/2024 02:38 PM CLINIC OFFICE COORDINATOR History and Physical Notes * HPI (History of Present Illness) Category Sub-Category Detail Notes Category Not es Migrated HPI Ms. Fields is a 79-year-old female new patient referred after hospitalization at [facility] for urinary retention. PMH includes CKD, [...] the bathroom, but denies problems with incontinence. Denies fever, flank pain, gross hematuria or [...]
[2024-10-19] MEDS: diphenhydrAMINE 25 mg Capsule PO (15:15)
--- NOTE | 2024-10-19 15:18 | PC.NURSE ---
generalized rash pt states when i get anxious i break out into hive doctor called with order , noted buttock poor blanchable and noted area right buttock non blanchable refused em voids in bed incontinent or attempt bed benjamin very short of breath
[2024-10-19 16:02] LABS: ABG PCO2 59.5 mmHg (35-45); ABG PH Result 7.22 (7.35-7.45); Arterial Blood Gas Hematocrit 35.7 % (37-47); Base Excess ABG -4.2 mmol/L (-2.0-2.0); Blood Gas Allen Test Pos; Blood Gas Operator Identificat CAK; Blood Gas Sample Site Radial, left; Blood Gas Sample Type Arterial; HCO3 ABG 24.2 mmol/L (22-26); Oxygen Device HAG; PO2 ABG 74.5 mmHg (80.0-100.0); PO2 FiO2 Ratio Arterial Blood 149
--- NOTE | 2024-10-19 16:28 | PC.NURSE ---
abgs done placed on bipap at this time
--- NOTE | 2024-10-19 17:54 | PC.NURSE ---
folic acid not given at this time as pt finally resting on bipap at this time o2 sats at 98
--- NOTE | 2024-10-19 23:14 | PC.NURSE ---
Anxiety: Notified Dr. Dwyer that pt is extremely anxious @4560. New order for 0.5mg IVP Ativan ONCE NOW.
[2024-10-19] MEDS: LORazepam 2 mg/mL INJ 1 mL 0.5 MG IVP (23:24)
[2024-10-20] VITALS (65 sets, daily range): BP systolic 68–128; BP diastolic 42–73; PULSE 95–120; RESP 16–32; TEMP 36.4–36.5; O2SAT 87–100
[2024-10-20] MEDS: ipratropium-albuterol 3 mL Neb INHALATION ×6 (00:21→20:09)
[2024-10-20] MEDS: methylPREDNISolone sod succ 40 mg/mL INJ IVP ×4 (02:32→21:23)
[2024-10-20] MEDS: enoxaparin 40 mg/0.4 mL Syringe SUBCUT (05:48)
[2024-10-20 05:52] LABS: Basophils % 0.3 %; Hematocrit 39.6 % (36-47); Lymphocytes # 0.4 10^3/uL (0.8-4.8); Lymphocytes % 3.7 %; Mean Corpuscular HGB Conc 29.3 g/dL (30-55); Mean Corpuscular Hemoglobin 31.8 pg (27-33); Mean Corpuscular Volume 108.5 fl (85-98); Monocytes # 0.3 10^3/uL (0.2-0.9); Neutrophils # 10.14 10^3/uL (1.8-7.7); Neutrophils % 92.3 %; Nucleated Red Blood Cells % 0.3 %; Platelet Count 151 10^3/cmm (157-399); Red Blood Count 3.65 10^6/uL (3.85-5.65); Red Cell Distribution Width 17.4 % (12.1-15.1); White Blood Count 10.99 10^3/uL (3.29-11.43)
[2024-10-20 05:54] LABS: Alanine Aminotransferase 14 U/L (0-33); Albumin Level 3.8 g/dL (3.5-5.2); Alkaline Phosphatase 105 U/L (35-105); Aspartate Amino Transferase 32 U/L (0-32); Blood Urea Nitrogen 55 mg/dL (8-23); Calcium 8.9 mg/dL (8.5-10.5); Carbon Dioxide 20 mmol/L (22-29); Chloride 96 mmol/L (98-107); Creatinine Clr Calc Pharmacy 12.9343; Glucose 153 mg/dL (65-115); Magnesium 2.3 mg/dL (1.7-2.3); Osmolality Calculated 300 mOsm/kg (285-295); Phosphorus 5.9 mg/dL (2.5-4.5); Sodium 136 mmol/L (136-145); Total Bilirubin 0.6 mg/dL (0.15-1.2); Total Protein 6.8 g/dL (6.6-8.7)
[2024-10-20 05:56] LABS: Anion Gap 25.1 (5-19); Potassium 5.1 mmol/L (3.5-5.1)
[2024-10-20] MEDS: budesonide 0.5 mg/2 mL Neb INHALATION ×2 (07:37→20:05)
[2024-10-20] MEDS: pantoprazole 40 mg SDV IVP (08:02)
[2024-10-20] MEDS: folic acid 1 mg Tablet PO (08:03)
[2024-10-20] MEDS: oseltamivir phosphate 30 mg Capsule PO (08:03)
[2024-10-20] MEDS: sertraline 50 mg Tablet PO (08:03)
[2024-10-20] MEDS: diphenhydrAMINE 25 mg Capsule PO (08:03)
--- NOTE | 2024-10-20 08:11 | PC.NURSE ---
restless and agitated requesting bipap off at this time placed on high flow am meds given pt scratching again this am from nerves benadryl po given
[2024-10-20] MEDS: morphine 4 mg/mL SDV 1 mL 2 MG IVP (09:42)
--- NOTE | 2024-10-20 12:30 | P.PN_ITS ---
Subjective 2 Subjective: 79-year-old who past medical history sig nificant for severe pulmonary hypertension RVSP of 81.2 mmHg, chronic stage 3 kidney disease, diabetes mellitus, DVT status post IVC filter, GI bleed due to ischemic colitis in 07/2024, chronic heart failure with preserve EF, mild to moderate aortic stenosis, chronic respiratory failure with hypoxemia on 3 L of oxygen via nasal cannula, chronic obstructive pulmonary disease,Who presented to the hospital with shortness of breath. She noted th is was going on for some time however progressively worsening over the past week. Associated with a nonproductive cough. Upon arrival to our hospital emergency room on 10/19 her workupShowed a WBC of 13.8, hemoglobin of 11, hematocrit 35.8 and a platelet count of 150. Sodium of 136, potassium of 4.8, chloride 98, bicarb 20, BUN of 42 and creatinine of 2.0. Prior to this a creatinine of 2.2 was noted in August of last year. Troponin T baseline of 45 and after 120 minute is still 45[place] [address]. Procalcitonin of 0.34. Urinalys is showed 3+ leukocyte esterase, 21-50 WBC hwoever also 21-50 squamous epithelial. influenza a was noted to be positive. Multiple arterial blood gases were done with initial 1 showing a pH 7.24, pCO2 54.9, PO2 of 66.7 and bicarb of 23.7. Patient was placed on high-flow nasal cannula. Chest x-ray done on admission did not show any evidence of acute cardiopulmonary abnormality. She was started on Solu- Medrol 40 mg IV q.6 hours,, budesonide 0.5 mg b.I.d DuoNebs q.6 hours scheduled and Tamiflu 30 mg b.I.d.. Patient was noted to have significant respiratory distress on afternoon of the at which point she was transferred to ICU for close monitoring. Today patient was repeatedly pulling off for BiPAP which was placed due to acute worsening respiratory distress. During this time repeat arterial blood gases were done which showed a pH of 7.14, pCO2 of 65.7, bicarb of 22.6 patient continued to have increased work of breathing at which point she was intubated and placed on mechanical ventilation. Of note prior to this did discuss patient's code status and she had reaffirmed her wishes to remain a full code. Chest xray was repeated which showed bibasilar consolidations. Patient was started emperically on vancomycin and meropenum. Became hypotensive. Started on levophed. She was noted to have lower extremity edema however intravascularly dry. Was given a one time bolus of LR. Patient was placed on sedation. Patient was noted have intake of 255 mL an output of 720 mL in past 24 hours. Urine output was 0.52 mL/kg per hour. Remainder of her labs today showed a WBC of 10.9, hemoglobin of 11.6, hematocrit 39.6 and a platelet count of 151. Sodium 136, potassium 5.1, chloride 96, bicarb 20, BUN of 55 and creatinine of 2.8. Vitals/I&O/Wt Last Vital Signs Temp 97.7 F 10/20/24 04:29 Pulse 118 H 10/20/24 12:00 Resp 21 H 10/20/24 12:00 BP 105/67 10/20/24 12:00 Pulse Ox 90 10/20/24 12:00 O2 Del Method BiPAP 10/20/24 11:03 O2 Flow Rate 50 10/19/24 15:34 FiO2 60 10/20/24 11:03 10/19/24 10/20/24 10/20/24 22:59 06:59 14:59 Intake Total 100 / 420 100 / 100 Output Total 300 / 700 700 / 700 Balance 100 / 20 -300 / -280 -600 / -600 Weight last 48 hrs Weight 50.938 kg Weight 50.576 kg Weight 78.018 kg Physical Exam 2 Narrative: General: Intubated on mechanical vent HEENT- ET tube in place Cardiovascular: RRR. No gallops. No murmurs. No peripheral edema. Lungs:Vented sounds bilaterally Abdomen: Normal bowel sounds, abdomen soft and nontender. Extremities:Bilateral LE edema Neurological: Sedated Urinary Catheter Management: Low: Cath Placed During This Visit: yes Reason for Continuing Indwelling Catheter: Accurate Measurement of Urinary Output in Critically Ill Patients Urinary Catheter Date of Insertion: 10/19/23 Urinary Catheter Time of Insertion: 20:00 Data 10/20/24 04:39 10/20/24 04:39 A&P Assessment and plan (1) COPD (chronic obstructive pulmonary disease): (2) Influenza A: (3) Generalized weakness: (4) Elevated brain natriuretic peptide (BNP) level: (5) CKD (chronic kidney disease): Plan Acute on Chronic Hypoxemic Respiratory Failure - Multifactorial etiology, likely due to influenza A pneumonia superimposed on chronic respiratory failure in the setting of severe pulmonary hypertension and COPD - Noted significant respiratory distress on 10/19, transferred to ICU for close monitoring - Repeatedly pulling off BiPAP placed for acute worsening respiratory distress - Continued increased work of breathing, intubated and placed on mechanical ventilation after reaffirming full code status - Currently on mechanical ventilation with lung protective strategy - Plan: 1. Titrate FiO2 and PEEP to maintain adequate oxygenation 2. Daily sedation interruption and ventilator weaning trials as tolerated 3. Continue Tamiflu 30 mg BID to complete 5 day course 4. Repeat chest xray and abg in am 5. Would prefer propofol or precedex > versed - will attempt to change if tolerated Septic Shock - Likely secondary to influenza A pneumonia, requiring vasopressor support with levophed - Became hypotensive after intubation, started on levophed titrated to MAP >65 - Empirically started on vancomycin and meropenem for broad spectrum coverage - Plan: 1. Continue broad spectrum antibiotics and titrate based on culture results and sensitivities 2. Strict ins and outs, target euvolemia 3. Titrate levophed to maintain adequate perfusion and MAP >65 4. Blood culture x2 and repeat UA with reflex urine culture ordered Acute on Chronic Renal Failure - Creatinine increased to 2.8 from baseline 2.2, likely pre-renal in the setting of sepsis - Noted to have lower extremity edema but intravascularly dry, given one-time bolus of LR - UOP 0.52 mL/kg/hr in last 24 hours today was decreasing however - Plan: 1. Strict ins and outs, avoid nephrotoxins 2. Titrate fluids and pressors to maintain adequate renal perfusion 3. Trend creatinine and urine output closely 4. Consider nephrology consult if worsening Chronic Heart Failure with Preserved EF - History of chronic heart failure, currently euvolemic on exam - Plan: 1. Continue home heart failure medications as tolerated 2. Daily weights and strict ins and outs 3. Optimize volume status and oxygenation Chronic Obstructive Pulmonary Disease - Underlying COPD likely contributing to current acute respiratory failure - Plan: 1. Continue steroids (Solu-Medrol 40 mg IV q6h) and bronchodilators (budesonide 0.5 mg BID, DuoNebs q6h scheduled) Pulmonary Hypertension - Severe pulmonary hypertension with RVSP 81.2 mmHg, likely contributing to right heart strain and acute decompensation - Plan: 1. Avoid hypoxemia and hypercarbia Diabetes Mellitus - Initiate insulin sliding scale for blood glucose control - Q6hr checkes Mild to Moderate Aortic Stenosis - Hemodynamically stable, no signs of low output - Continue to monitor hemodynamics closely while on vasopressors PDMP PDMP Reviewed: Not Reviewed Attestations 2 Medical Necessity Statement*: Given patients decline over the last 24 hour now requiring ICU level care, intubation, mechanical ventilation and IV antibiotics will require over 2 midnights stay in hospital for evaluation and treatment. Coding Level of Care Code Acute Code for Chg Fwd Diagnoses COPD (chronic obstructive pulmonary disease) J44.9 Influenza A J10.1 Generalized weakness R53.1 Elevated brain natriuretic peptide (BNP) level R79.89 CKD (chronic kidney disease) N18.9
[2024-10-20] MEDS: dexmedeTOMIDine 0.9 % NaCL 400 MCG/100 ML PREMIX IV (12:41)
[2024-10-20 12:43] LABS: Blood Gas Allen Test Pos; Blood Gas Operator Identificat CAK; Blood Gas Sample Type Arterial; Oxygen Device BIPAP
[2024-10-20 12:51] LABS: Arterial Blood Gas Hematocrit 36.6 % (37-47); Base Excess ABG -7.1 mmol/L (-2.0-2.0); Blood Gas Sample Site Brachial, left; HCO3 ABG 22.6 mmol/L (22-26); PO2 FiO2 Ratio Arterial Blood 100
[2024-10-20 12:52] LABS: ABG PH Result 7.14 (7.35-7.45)
--- NOTE | 2024-10-20 12:52 | PC.NURSE ---
restless constant moving in bed taking off bipap ect ,, rt aware increased fio2 and call placed to doctor
[2024-10-20 12:53] LABS: ABG PCO2 65.7 mmHg (35-45)
[2024-10-20 14:45] LABS: ABG PCO2 59.8 mmHg (35-45); ABG PH Result 7.19 (7.35-7.45); Alveolar-Arterial Oxygen Gradi 46.4 mmHg (5-10); Arterial Blood Gas Hematocrit 33.9 % (37-47); Base Excess ABG -5.9 mmol/L (-2.0-2.0); Blood Gas Allen Test Pos; Blood Gas Operator Identificat CAK; Blood Gas Sample Site Brachial, left; Blood Gas Sample Type Arterial; Carboxyhemoglobin 1.2 %THgb (0.4-20.1); HCO3 ABG 22.8 mmol/L (22-26); HGB O2 Sat 90.9 % (95-100); Ionized Calcium Level - ABG 1.2 mmol/L (1.1-1.4); Methemoglobin 1.2 % (0.4-1.5); Oxygen Device BIPAP; Oxygen Saturation ABG 93.1; PO2 ABG 73.5 mmHg (80.0-100.0); PO2 FiO2 Ratio Arterial Blood 105; Potassium Level - ABG 4.3 mmol/L (3.5-5.0); Total Hemoglobin 11.1 g/dL (12-16)
--- NOTE | 2024-10-20 15:14 | XRR_ITS ---
PROCEDURE INFORMATION: Exam: XR Chest Exam date and time: 10/20/2024 3:26 PM Age: 79 years old Clinical indication: Device placement; Other: Og tube placement TECHNIQUE: Imaging protocol: Radiologic exam of the chest. Views: 1 view. COMPARISON: CR (CHEST, ) 10/19/2024 1:42 AM FINDINGS: Tubes, catheters and devices: OG tube terminates in the stomach. Lungs: Bibasilar consolidations. Pleural spaces: Unremarkable. No pleural effusion. No pneumothorax. Heart/Mediastinum: Unremarkable. No cardiomegaly. Vasculature: IVC filter noted. Bones/joints: ORIF hardware noted in the proximal right humerus. Visualized osseous structures are intact. XR/XR chest 1V portable [id number] IMPRESSION: 1. OG tube in proper positioning. 2. Bibasilar consolidations.
[2024-10-20] MEDS: rocuronium 10 mg/mL INJ 5mL 50 MG IVP (15:27)
[2024-10-20] MEDS: propofol 1,000 MG/100 ML INJ 6.11 MG IV (15:28)
--- NOTE | 2024-10-20 15:55 | PC.NURSE ---
abgs noted prior called to Dr orders noted and propfol gtt started and precedex gtt off at this time
[2024-10-20] MEDS: lactated ringers 1,000 ML 75 ML IV (16:23)
[2024-10-20] MEDS: norepinephrine 4 MG/250 ML BAG 15 MG (16:50)
[2024-10-20] MEDS: midazolam hcl 100 MG/100 ML BAG IV (16:57)
[2024-10-20] MEDS: norepinephrine 4 MG/250 ML BAG 15 MG IV (17:06)
[2024-10-20 17:45] LABS: Blood Gas Allen Test Pos; Blood Gas Sample Type Arterial; Carboxyhemoglobin 1.2 %THgb (0.4-20.1); Ionized Calcium Level - ABG 1.2 mmol/L (1.1-1.4); Oxygen Device VENT; Potassium Level - ABG 4.5 mmol/L (3.5-5.0)
[2024-10-20 18:03] LABS: Alveolar-Arterial Oxygen Gradi 74.9 mmHg (5-10); Arterial Blood Gas Hematocrit 36.4 % (37-47); Base Excess ABG -6.6 mmol/L (-2.0-2.0); Blood Gas Operator Identificat CQO; Blood Gas Sample Site Brachial, left; HCO3 ABG 22.9 mmol/L (22-26); HGB O2 Sat 87.4 % (95-100); Methemoglobin 1.2 % (0.4-1.5); Oxygen Saturation ABG 89.6; PO2 ABG 66.2 mmHg (80.0-100.0); PO2 FiO2 Ratio Arterial Blood 66; Total Hemoglobin 11.9 g/dL (12-16)
[2024-10-20 18:04] LABS: ABG PCO2 64.9 mmHg (35-45); ABG PH Result 7.16 (7.35-7.45)
--- NOTE | 2024-10-20 18:08 | PM.ACPR ---
Procedure/Consent Time out: Time Out Performed: Yes Consent: Additional Consent Information: Urgent Acute Procedures Epistaxis Control: Time out performed: Yes Intubation: Time out performed: Yes Sedative: etomidate Mg given: 15 Paralytic: rocuronium Mg given: 50 Laryngoscope: fiber optic video scope ET tube size: 7 Tube secured location: teeth Intubation complications: none
[2024-10-20] MEDS: lactated ringers 500 ML 999 ML IV (18:49)
[2024-10-20] MEDS: VANCOMYCIN ADD-Vantage 1,000 MG in 0.9% NaCl ADD-Vantage 250 ML 250 MG IV (19:49)
[2024-10-20 19:52] LABS: Bilirubin Urine Negative (Negative); Blood Urine 2+ (Negative); Glucose Urine UA Negative (Normal); Ketones Urine Trace (Negative); Leukocyte Esterase Urine 2+ (Negative); Nitrate Urine Negative (Negative); Protein Urine 2+ (Negative); Specific Gravity, Urine 1.017 (1.005-1.030); Urine Appearance Turbid (CLEAR); Urine Color Dark Yellow (Yellow)
[2024-10-20 19:57] LABS: Add Urine Microscopic? YES; Bacteria Urine 4+ /hpf; Hyaline Casts Urine 156.25 /lpf; Squamous Epithelial Cell Urine >100 /hpf (0-5); WBC Urine >100 /hpf (0-5)
--- NOTE | 2024-10-20 20:08 | PC.NURSE ---
Poor Peripheral Access: Notified Dr. Dwyer @2004 of 1 peripheral IV, multiple attempts for additional line w/ no success. New order for central line.
--- NOTE | 2024-10-20 20:26 | XRR_ITS ---
PROCEDURE INFORMATION: Exam: XR Chest Exam date and time: 10/20/2024 8:29 PM Age: 79 years old Clinical indication: Other vascular access device placement or adjustment; Central line, non-tunnelled; Prior surgery; Surgery date: 6+ months; Surgery type: Humeral fixation; Check S/P RT central line placement TECHNIQUE: Imaging protocol: Radiologic exam of the chest. Views: 1 view. COMPARISON: CR (CHEST, ) 10/20/2024 3:26 PM FINDINGS: Tubes, catheters and devices: New right IJ line present, tip overlies mid SVC. Lines and tubes otherwise unchanged. Lungs: Hazy bibasilar infiltrates and small effusions are unchanged to minimally progressed. Pleural spaces: No pneumothorax. No other change. Heart/Mediastinum: Unremarkable. No cardiomegaly. Vasculature: Advanced diffuse vascular calcification noted. Bones/joints: Partially assessed right mid humeral ORIF. XR/XR chest 1V portable [id number] IMPRESSION: 1. New right IJ line in place, tip overlies mid SVC. No pneumothorax. 2. Lung base findings have progressed slightly as described. No other change from earlier today.
--- NOTE | 2024-10-20 20:45 | W.ED.SOB ---
HPI - SOB/Dyspnea General: Chief Complaint: Shortness of Breath/Dyspnea Stated Complaint: SOB Time Seen by Provider: 10/19/24 01:32 History of Present Illness: HPI Narrative: mm Related Data Home Medications ?Medication ?Instructions ?Recorded ?Confirmed sertraline 50 mg tablet 50 mg PO DAILY 03/16/24 10/19/24 fluticasone propionate 45 2 inh inhalation BID 07/15/24 10/19/24 mcg-salmeterol 21 mcg/actuation HFA inhaler (Advair HFA) bumetanide 0.5 mg tablet 0.5 mg PO DAILY PRN Edema 10/19/24 10/19/24 diltiazem HCl 120 mg 120 mg PO DAILY 10/19/24 10/19/24 capsule,extended release 24 hr ipratropium bromide 0.02 % 0.5 mg inhalation Q6H PRN 10/19/24 10/19/24 solution for inhalation Shortness Of Breath levalbuterol HCl 0.63 mg/3 mL 0.63 mg inhalation Q6H PRN 10/19/24 10/19/24 solution for nebulization Shortness Of Breath potassium chloride 10 mEq 10 meq PO .with bumex PRN every 10/19/24 10/19/24 tablet,extended release otherd day w bumex Previous Rx's ?Medication ?Instructions ?Recorded albuterol sulfate 90 mcg/actuation 2 inh inhalation Q8H PRN shortness 03/22/24 aerosol inhaler of breath or wheezing #6.7 grams tiotropium bromide 18 mcg capsule 1 cap inhalation DAILY #60 03/22/24 with inhalation device (Spiriva inhalations with HandiHaler) folic acid 1 mg tablet 1 mg PO BID #60 tabs 07/30/24 furosemide 40 mg tablet 40 mg PO DAILY@0800 PRN swelling 07/30/24 #15 tabs pantoprazole 40 mg tablet,delayed 40 mg PO QAM #60 tabs 07/30/24 release (Protonix) Allergies Allergy/AdvReac Type Severity Reaction Status Date / Time penicillin G Allergy Severe ALGY-Swell Verified 08/12/24 09:30 Lip/Tongue/Throat Penicillins Allergy Unknown Verified 08/12/24 09:30 [facility] ED PFSH: Medical History Mild aortic stenosis Urinary tract infection Deep vein thrombosis, lower left extremity 03/17- Nonocclusive thrombus distal left superficial femoral vein and popliteal vein. CKD (chronic kidney disease) Acute hypoxemic respiratory failure COPD (chronic obstructive pulmonary disease) Acute on chronic renal insufficiency Congestive heart failure Acute exacerbation of chronic obstructive airways disease Leukoplakia of bladder Diabetes mellitus History of recurrent UTI (urinary tract infection) Surgical History History of tonsillectomy and adenoidectomy H/O tubal ligation S/P IVC filter 07/19/2024 Family History Mother , AT AGE 91 Stroke Father , AT 99 No problems noted. Social History Smoking and tobacco/nicotine status: never used tobacco/nicotine Alcohol intake: never Marital status: / Current occupational status: retired Procedures Central Line Placement Right IJ: Time Out Performed: Yes Patient Placed on Monitor/Pulse Ox: Yes MD Prep: mask, gown and gloves Central Line Prep: Chlorhexidine scrub Local Anesthetic: lidocaine 1% Amount of anesthesia used (mL): 3 Ultrasound Used for Placement: Yes Central Line Lumen Inserted: triple Post Procedure: sutured in place, good blood return, all ports aspirated, flushed, capped and sterile dressing applied Post Procedure X-Ray: tip of catheter in good position and no pneumothorax seen Patient Tolerated Procedure: well Complications: none Course Vital Signs: Vital signs: Vital Signs Temperature 97.7 F 10/20/24 04:29 Pulse Rate 107 H 10/20/24 20:00 Respiratory Rate 20 H 10/20/24 20:11 Blood Pressure 110/55 10/20/24 18:00 Pulse Oximetry 91 10/20/24 20:11 Oxygen Delivery Me thod Mechanical Ventil ation 10/20/24 20:00 Oxygen Flow Rate 50 10/19/24 15:34 Fraction of Inspir ed Oxygen 100 10/20/24 20:11 MDM - SOB/Dyspnea Medical Decision Making Called the ICU to do a central line patient is on pressors and has poor access did place a central line with no complications. Lab Data 10/20/24 04:39 10/20/24 04:39 Labs/Radiology: Laboratory Results WBC 13.80 10^3/uL (3.29-11.43) H 10/19/24 03:53 RBC 3.60 10^6/uL (3.85-5.65) L 10/19/24 03:53 Hgb 11.10 g/dL (11.27-16.99) L 10/19/24 03:53 Hct 35.8 % (36-47) L 10/19/24 03:53 MCV 99.4 fl (85-98) H 10/19/24 03:53 MCH 30.8 pg (27-33) 10/19/24 03:53 MCHC 31.0 g/dL (30-55) 10/19/24 03:53 RDW 17.4 % (12.1-15.1) H 10/19/24 03:53 Plt Count 150 10^3/cmm (157-399) L 10/19/24 03:53 MPV 10.3 fL (7.4-10.4) 10/19/24 03:53 Neut % (Auto) 91.2 % 10/19/24 03:53 Lymph % (Auto) 4.3 % 10/19/24 03:53 Preston % (Auto) 3.9 % 10/19/24 03:53 Eos % (Auto) 0.1 % 10/19/24 03:53 Baso % (Auto) 0.1 % 10/19/24 03:53 Neut # (Auto) 12.59 10^3/uL (1.8-7.7) H 10/19/24 03:53 Lymph # (Auto) 0.6 10^3/uL (0.8-4.8) L 10/19/24 03:53 Preston # (Auto) 0.5 10^3/uL (0.2-0.9) 10/19/24 03:53 Eos # (Auto) 0.0 10^3/uL (0.0-0.8) 10/19/24 03:53 Baso # (Auto) 0.0 10^3/uL (0.0-0.1) 10/19/24 03:53 Nucleated RBC % (auto) 0 % 10/19/24 03:53 Nucleated RBCs # 0.0 /100WBC 10/19/24 03:53 D-Dimer 1.17 ug/mLFEU (0-0.59) H 10/19/24 03:53 Specimen Type Arterial 10/19/24 01:44 Sample Site Brachial, right 10/19/24 01:44 ABG pH 7.24 (7.35-7.45) L 10/19/24 01:44 ABG pCO2 54.9 mmHg (35-45) H 10/19/24 01:44 ABG pO2 66.7 mmHg (80.0-100.0) L 10/19/24 01:44 ABG HCO3 23.7 mmol/L (22-26) 10/19/24 01:44 ABG Base Excess -4.2 mmol/L (-2.0-2.0) L 10/19/24 01:44 Zackary Test N/a 10/19/24 01:44 Hematocrit 36.4 % (37-47) L 10/19/24 01:44 Hgb O2 Saturation 86.7 % (95-100) L 10/19/24 01:44 Carboxyhemoglobin 1.3 %THgb (0.4-20.1) 10/19/24 01:44 Methemoglobin 1.2 % (0.4-1.5) 10/19/24 01:44 Total Hemoglobin 11.9 g/dL (12-16) L 10/19/24 01:44 O2 Delivery Device Nc 10/19/24 01:44 O2 Liters/Min 10.0 % 10/19/24 01:44 Quality Lead ID [id number] 10/19/24 01:44 Sodium 136 mmol/L (136-145) 10/19/24 03:53 Potassium 4.8 mmol/L (3.5-5.1) 10/19/24 03:53 Chloride 98 mmol/L (98-107) 10/19/24 03:53 Carbon Dioxide 20 mmol/L (22-29) L 10/19/24 03:53 Anion Gap 22.8 (5-19) H 10/19/24 03:53 BUN 42 mg/dL (8-23) H 10/19/24 03:53 Creatinine 2.0 mg/dL (0.5-0.9) H 10/19/24 03:53 GFR Calculation Not Reportable 10/19/24 03:53 Glucose 128 mg/dL (65-115) H 10/19/24 03:53 Calculated Osmolality 294 mOsm/kg (285-295) 10/19/24 03:53 Calcium 8.4 mg/dL (8.5-10.5) L 10/19/24 03:53 Troponin T Baseline 45 ng/L (0-10) H 10/19/24 03:53 Troponin T 120 Minute 45.44 ng/L (0-10) H 10/19/24 05:50 Delta Troponin T 0.44 ABS# (0-10) 10/19/24 05:50 NT-Pro-B Natriuret Pep 55897 pg/mL (0-450) H 10/19/24 03:53 Procalcitonin 0.34 ng/mL (0-0.5) 10/19/24 05:50 Urine Color Yellow (Yellow) 10/19/24 08:50 Urine Appearance Turbid (CLEAR) A 10/19/24 08:50 Urine pH 5.0 (5-7) 10/19/24 08:50 Ur Specific Dierks 1.010 (1.005-1.030) 10/19/24 08:50 Urine Protein 1+ (Negative) A 10/19/24 08:50 Urine Glucose (UA) Negative (Normal) 10/19/24 08:50 Urine Ketones Negative (Negative) 10/19/24 08:50 Urine Blood 3+ (Negative) A 10/19/24 08:50 Urine Nitrate Negative (Negative) 10/19/24 08:50 Urine Bilirubin Negative (Negative) 10/19/24 08:50 Urine Urobilinogen 0.2 mg/dL (Negative) 10/19/24 08:50 Ur Leukocyte Esterase 3+ (Negative) A 10/19/24 08:50 Urine RBC 51-100 /hpf (0-2) H 10/19/24 08:50 Urine WBC 21-50 /hpf (0-5) H 10/19/24 08:50 Ur Squamous Epith Cells 21-50 /hpf (0-5) H 10/19/24 08:50 Amorphous Sediment 1+ /hpf 10/19/24 08:50 Urine Bacteria 4+ /hpf (NONE) H 10/19/24 08:50 Hyaline Casts 4.11 /lpf 10/19/24 08:50 Urine Yeast 1+ /hpf H 10/19/24 08:50 Coronavirus (PCR) Negative (Negative) 10/19/24 01:41 Influenza A (PCR) Positive (Negative) 10/19/24 01:41 Influenza Type B (PCR) Negative (Negative) 10/19/24 01:41 RSV (PCR) Negative (Negative) 10/19/24 01:41 All radiology interpretation(s) finalized by discharge Discharge Plan Discharge Patient Disposition: Admitted As Inpatient Admit Provider: Jean Dwyer Clinical Impression: Influenza A, COPD exacerbation Condition: Stable Coding Level of Care Code ED Food Sales Clerk for Macarena Giang
[2024-10-20 20:52] LABS: UA Slide Review UA Slide Review Perf
[2024-10-20 20:53] LABS: Calcium Oxalate Crystals Urine 0-4 /hpf
[2024-10-20 20:54] LABS: Add Urine Culture? No; Other Casts Urine WBC CAST /lpf
[2024-10-20] MEDS: meropenem 500 MG in sodium chloride 0.9% (plus) 50 ML 100 MG IVP (21:10)
[2024-10-20 21:38] LABS: Glucose Point of Care 112 mg/dL (70-110)
[2024-10-20] MEDS: norepinephrine 4 MG/250 ML BAG 52.5 MG IV (22:47)
[2024-10-20 23:59] LABS: ABG PCO2 57.9 mmHg (35-45); ABG PH Result 7.19 (7.35-7.45); Alveolar-Arterial Oxygen Gradi 75.9 mmHg (5-10); Arterial Blood Gas Hematocrit 37.7 % (37-47); Base Excess ABG -6.7 mmol/L (-2.0-2.0); Blood Gas Operator Identificat SAM; Blood Gas Sample Site Brachial, right; Blood Gas Sample Type Arterial; Carboxyhemoglobin 1.1 %THgb (0.4-20.1); HGB O2 Sat 89.1 % (95-100); Ionized Calcium Level - ABG 1.2 mmol/L (1.1-1.4); Methemoglobin 0.8 % (0.4-1.5); Oxygen Device VENT; Oxygen Saturation ABG 90.8; PO2 ABG 66.9 mmHg (80.0-100.0); PO2 FiO2 Ratio Arterial Blood 66; Potassium Level - ABG 4.4 mmol/L (3.5-5.0); Total Hemoglobin 12.3 g/dL (12-16)
[2024-10-21] VITALS (61 sets, daily range): BP systolic 53–115; BP diastolic 42–66; PULSE 0–134; RESP 19–38; TEMP 36.8–37.4; O2SAT 77–94
[2024-10-21] MEDS: ipratropium-albuterol 3 mL Neb INHALATION ×3 (00:10→07:27)
[2024-10-21] MEDS: methylPREDNISolone sod succ 40 mg/mL INJ IVP ×2 (02:07→09:42)
[2024-10-21 03:03] LABS: ABG PCO2 53.4 mmHg (35-45); Arterial Blood Gas Hematocrit 40.1 % (37-47); Base Excess ABG -7.7 mmol/L (-2.0-2.0); Blood Gas Allen Test Pos; Blood Gas Operator Identificat SAM; Blood Gas Sample Site Radial, right; Blood Gas Sample Type Arterial; HCO3 ABG 20.7 mmol/L (22-26); Oxygen Device VENT; PO2 ABG 66.7 mmHg (80.0-100.0); PO2 FiO2 Ratio Arterial Blood 66
[2024-10-21] MEDS: fentaNYL 1,000 MCG/100 ML BAG 5 MCG IV (03:14)
--- NOTE | 2024-10-21 03:18 | PC.NURSE ---
Addendum entered by Shena Rosa RN 10/21/24 04:43: Witnessed waste of 94 mls propofol. Original Note: Fentanyl: Dr. Dwyer on unit to see pt. Verbal order to start Fentanyl drip. Propofol D/Cd. 94 ml Propofol wasted w/ SPEEDY Chatterjee.
[2024-10-21] MEDS: lactated ringers 1,000 ML 75 ML IV ×2 (03:39→10:24)
[2024-10-21] MEDS: norepinephrine 4 MG/250 ML BAG 60 MG IV (03:55)
[2024-10-21] MEDS: vasopressin 40 UNIT/100 ML PREMIX 6 UNIT IV (04:01)
--- NOTE | 2024-10-21 04:06 | PC.NURSE ---
Addendum entered by Angeline Ann RN 10/21/24 04:55: Salma (Friend) called unit @approximately 0445. Updated on current care plan and escalation of care. Original Note: Family Update: Hoang (son) called to update @0404. Informed of escalation of care.
[2024-10-21] MEDS: enoxaparin 40 mg/0.4 mL Syringe SUBCUT (05:35)
[2024-10-21 05:45] LABS: Hematocrit 41.3 % (36-47); Mean Corpuscular HGB Conc 29.3 g/dL (30-55); Mean Corpuscular Hemoglobin 30.7 pg (27-33); Mean Corpuscular Volume 104.8 fl (85-98); Mean Platelet Volume 11.5 fL (7.4-10.4); Platelet Count 225 10^3/cmm (157-399); Red Blood Count 3.94 10^6/uL (3.85-5.65); Red Cell Distribution Width 17.7 % (12.1-15.1); White Blood Count 15.38 10^3/uL (3.29-11.43)
[2024-10-21 06:00] LABS: Alanine Aminotransferase 16 U/L (0-33); Albumin Level 3.3 g/dL (3.5-5.2); Alkaline Phosphatase 81 U/L (35-105); Anion Gap 24.3 (5-19); Aspartate Amino Transferase 27 U/L (0-32); Blood Urea Nitrogen 65 mg/dL (8-23); Calcium 8.5 mg/dL (8.5-10.5); Carbon Dioxide 18 mmol/L (22-29); Chloride 100 mmol/L (98-107); Creatinine Clr Calc Pharmacy 11.6727; Globulin 3.4 g/dL (1.3-4.6); Glucose 97 mg/dL (65-115); Osmolality Calculated 303 mOsm/kg (285-295); Potassium 5.3 mmol/L (3.5-5.1); Sodium 137 mmol/L (136-145); Total Bilirubin 0.9 mg/dL (0.15-1.2); Total Protein 6.7 g/dL (6.6-8.7)
[2024-10-21 06:05] LABS: Procalcitonin 3.75 ng/mL (0-0.5)
[2024-10-21 06:13] LABS: Absolute Segmented Neutrophil 6.6 10/cmm (1.6-7.1); Band Neutrophils Absolute 7.8 10^3/cmm (0.0-1.2); Lymphocytes 2 %; Monocytes Absolute 0.3 10^3/cmm (0.1-0.6); Segmented Neutrophils 43 %; Total Cells Counted 100 (0-100)
[2024-10-21 06:14] LABS: Absolute Neutrophil 14.5 10^3/cmm (1.4-6.5); Anisocytosis 1+; Eosinophils 0 %; Lymphocytes Absolute 0.3 10^3/cmm (1.2-3.4); Macrocytosis 1+; Platelet Estimate Normal (Normal); Poikilocytosis 1+
--- NOTE | 2024-10-21 07:00 | XRR_ITS ---
PROCEDURE INFORMATION: Exam: XR Chest Exam date and time: 10/21/2024 7:09 AM Age: 79 years old Clinical indication: Condition or disease; Lung condition and disease; Respiratory failure; Status not specified TECHNIQUE: Imaging protocol: Radiologic exam of the chest. Views: 1 view. COMPARISON: CR (CHEST, ) 10/20/2024 8:29 PM FINDINGS: Tubes, catheters and devices: The endotracheal tube is slightly lower than before terminating 1 cm above the magdalene. The right IJ catheter and gastric tubes are unchanged. Lungs: Slightly improved but persistent bilateral lower lobe pulmonary infiltrates. Pleural spaces: Unremarkable. No pleural effusion. No pneumothorax. Heart/Mediastinum: Unremarkable. No cardiomegaly. Bones/joints: Unremarkable. XR/XR chest 1V portable [id number] IMPRESSION: 1. The endotracheal tube is lower than before terminating 1 cm above the magdalene. 2. Slightly improved bibasilar pulmonary infiltrates.
[2024-10-21] MEDS: budesonide 0.5 mg/2 mL Neb INHALATION (07:27)
[2024-10-21] MEDS: norepinephrine 4 MG/250 ML BAG 75 MG IV ×2 (07:28→10:23)
[2024-10-21 07:45] LABS: Glucose Point of Care 82 mg/dL (70-110)
--- NOTE | 2024-10-21 08:16 | PHA.VACGOAL ---
Vancomycin Goal - Goal Vancomycin Goal:: 15-20 mg/L Vancomycin Indication:: Pneumonia - Therapy Current therapy:: Meropenem Day of therpy:: Day []of [] . Actual body weight (kg): 120 lb 3.2 oz - Data Labs: WBC 15.38 10^3/uL (3.29-11.43) H 10/21/24 05:26 RBC 3.94 10^6/uL (3.85-5.65) 10/21/24 05:26 Hgb 12.10 g/dL (11.27-16.99) 10/21/24 05:26 Hct 41.3 % (36-47) 10/21/24 05:26 MCV 104.8 fl (85-98) H 10/21/24 05:26 MCH 30.7 pg (27-33) 10/21/24 05:26 MCHC 29.3 g/dL (30-55) L 10/21/24 05:26 RDW 17.7 % (12.1-15.1) H 10/21/24 05:26 Sodium 137 mmol/L (136-145) 10/21/24 05:26 Potassium 5.3 mmol/L (3.5-5.1) H 10/21/24 05:26 Chloride 100 mmol/L (98-107) 10/21/24 05:26 Carbon Dioxide 18 mmol/L (22-29) L 10/21/24 05:26 Anion Gap 24.3 (5-19) H 10/21/24 05:26 BUN 65 mg/dL (8-23) H 10/21/24 05:26 Creatinine 3.2 mg/dL (0.5-0.9) H 10/21/24 05:26 GFR Calculation Not Reportable 10/21/24 05:26 Last dialysis session:: N/A Treatment plan:: new consult Regimen:: LOADING DOSE OF 1000 MG GIVEN. DUE TO PATIENT'S RENAL FUNCTION, WILL GIVE INTERMITTENT DOSING BASED ON VANC LEVELS. Follow up:: LEVEL SCHEDULED FOR 10/21 @1900
[2024-10-21 09:00] LABS: NT Pro B Type Natriuretic Pept > 70000 pg/mL (0-450)
[2024-10-21 09:14] LABS: Glucose Point of Care 81 mg/dL (70-110)
[2024-10-21] MEDS: meropenem 500 MG in sodium chloride 0.9% (plus) 50 ML 100 MG IVP (09:30)
[2024-10-21] MEDS: sertraline 50 mg Tablet PO (09:32)
[2024-10-21] MEDS: pantoprazole 40 mg SDV IVP (09:32)
[2024-10-21] MEDS: oseltamivir phosphate 30 mg Capsule PO (09:32)
[2024-10-21] MEDS: folic acid 1 mg Tablet PO (09:32)
[2024-10-21 10:48] LABS: Glucose Point of Care 69 mg/dL (70-110)
[2024-10-21] MEDS: morphine 4 mg/mL SDV 1 mL IVP (12:08)
--- NOTE | 2024-10-21 14:38 | PC.NURSE ---
1000- this nurse talked to patients son over the phone, family had made decision to go comfort care, Dr Ventura notified. After comfort care orders were received, ventilator was withdrawn and drips were stopped 1257- Time of Family, [facility], and half-way were contacted after time of . Nursing gave patient belongings to half-way with families consent. longterm faxed advanced directive orders with home arrangements.
--- NOTE | 2024-10-22 05:00 | PC.NURSE ---
Body released to [facility] @ 2124
--- NOTE | 2024-11-20 17:12 | P.DES_ITS ---
Discharge Providers DDS Date of Admission: 10/19/24 11:30 Date Summary Completed: 10/21/24 Attending Provider at Admission: Jean Dwyer MD Time of : 12:57 Attending Provider at Discharge: Kirti Ventura Pronouncing Clinician: Kirti Ventura Primary Care Provider: DO ALONA Garcia Diagnoses Hospital Diagnoses (1) COPD (chronic obstructive pulmonary disease): (2) Influenza A: (3) Generalized weakness: (4) Elevated brain natriuretic peptide (BNP) level: (5) CKD (chronic kidney disease): Reason for Visit Reason for Visit SOB Summary Date and Time of Date of : 10/21/24 Time of : 12:57 Summary Summary: 79-year-old who past medical history significant for severe pulmonary hypertension RVSP of 81.2 mmHg, chronic stage 3 kidney disease, diabetes mellitus, DVT status post IVC filter, GI bleed due to ischemic colitis in 07/2024, chronic heart failure with preserve EF, mild to moderate aortic stenosis, chronic respiratory failure with hypoxemia on 3 L of oxygen via nasal cannula, chronic obstructive pulmonary disease,Who presented to the hospital with shortness of breath. She noted th is was going on for some time however progressively worsening over the past week. Associated with a nonproductive cough. Upon arrival to our hospital emergency room on 10/19 her workupShowed a WBC of 13.8, hemoglobin of 11, hematocrit 35.8 and a platelet count of 150. Sodium of 136, potassium of 4.8, chloride 98, bicarb 20, BUN of 42 and creatinine of 2.0. Prior to this a creatinine of 2.2 was noted in August of last year. Troponin T baseline of 45 and after 120 minute is still 45[place] [address]. Procalcitonin of 0.34. Urinalys is showed 3+ leukocyte esterase, 21-50 WBC hwoever also 21-50 squamous epithelial. influenza a was noted to be positive. Multiple arterial blood gases were done with initial 1 showing a pH 7.24, pCO2 54.9, PO2 of 66.7 and bicarb of 23.7. Patient was placed on high-flow nasal cannula. Chest x-ray done on admission did not show any evidence of acute cardiopulmonary abnormality. She was started on Solu- Medrol 40 mg IV q.6 hours,, budesonide 0.5 mg b.I.d DuoNebs q.6 hours scheduled and Tamiflu 30 mg b.I.d.. Patient was noted to have significant respiratory distress on afternoon of the at which point she was transferred to ICU for close monitoring. Today patient was repeatedly pulling off for BiPAP which was placed due to acute worsening respiratory distress. During this time repeat arterial blood gases were done which showed a pH of 7.14, pCO2 of 65.7, bicarb of 22.6 patient continued to have increased work of breathing at which point she was intubated and placed on mechanical ventilation. Of note prior to this did discuss patient's code status and she had reaffirmed her wishes to remain a full code. Chest xray was repeated which showed bibasilar consolidations. Patient was started emperically on vancomycin and meropenum. Became hypotensive. Started on levophed. She was noted to have lower extremity edema however intravascularly dry. Was given a one time bolus of LR. Patient was placed on sedation. Patient was noted have intake of 255 mL an output of 720 mL in past 24 hours. Urine output was 0.52 mL/kg per hour. Remainder of her labs today showed a WBC of 10.9, hemoglobin of 11.6, hematocrit 39.6 and a platelet count of 151. Sodium 136, potassium 5.1, chloride 96, bicarb 20, BUN of 55 and creatinine of 2.8. Shortly after admission patient had progressively declined. She was transition to the intensive care unit. Noted to have progressive respiratory distress. At this time patient was a full code. And she was intubated and placed on mechanical ventilation. It appeared to be septic with progressive shock. Was requiring IV pressor support. Multiple discussions with family to notify them of patient's condition. This stated that the patient did not wish to have any aggressive measures. Family had made the decision to transition to comfort care. That opted to terminally wean off mechanical ventilation as well. At this time comfort care and terminal wean orders were placed. Patient had at 12:57 p.m.. Additional Data Advance directives?: No Discharge Plan Discharge Patient Disposition: Condition: Stable Prescriptions: No Action sertraline 50 mg tablet 50 mg PO DAILY tiotropium bromide [Spiriva with HandiHaler] 18 mcg capsule, w/inhalation device 1 cap inhalation DAILY Qty: 60 3RF Rx Instructions: puncture 1 cap using device; one dose = 2 inhalations albuterol sulfate 90 mcg/actuation HFA aerosol inhaler 2 inh inhalation Q8H PRN (Reason: shortness of breath or wheezing) Qty: 6.7 1RF fluticasone propion-salmeterol [Advair HFA] 45-21 mcg/actuation HFA aerosol inhaler 2 inh INHALATION BID furosemide 40 mg Tablet 40 mg PO DAILY@0800 PRN (Reason: swelling) Qty: 15 0RF folic acid 1 mg Tablet 1 mg PO BID Qty: 60 0RF pantoprazole [Protonix] 40 mg tablet,delayed release (DR/EC) 40 mg PO QAM Qty: 60 0RF bumetanide 0.5 mg tablet 0.5 mg PO DAILY PRN (Reason: Edema) diltiazem HCl 120 mg capsule,extended release 24hr 120 mg PO DAILY levalbuterol HCl 0.63 mg/3 mL solution for nebulization 0.63 mg inhalation Q6H PRN (Reason: Shortness Of Breath) potassium chloride 10 mEq tablet extended release 10 meq PO .with bumex PRN (Reason: every otherd day w bumex) ipratropium bromide 0.02 % solution 0.5 mg inhalation Q6H PRN (Reason: Shortness Of Breath) Referrals: Jeff Banegas DO [Primary Care Provider] - Probable Cause of Probable cause of : Cardiac arrest DS Attestations Time Spent in /Discharge Care*: greater than 30 min Quality - AMI: AMI present?: No Quality - Stroke: CVA present?: No Symptom Onset Unknown: No Quality - VTE: VTE present?: No Deep Vein Thrombosis/Pulmonary Embolism Present on Admission: No Coding Level of Care Code Acute Code for g Fwd Diagnoses COPD (chronic obstructive pulmonary disease) J44.9 Influenza A J10.1 Generalized weakness R53.1 Elevated brain natriuretic peptide (BNP) level R79.89 CKD (chronic kidney disease) N18.9
== END 2024-10-21 12:57 | disposition home or self-care (01) | DRG 871 ==
LOC: ER 04:56 → MEDSURG 05:25 → ICU 10-20 06:46
PROVIDERS: Admitting Provider Internal Medicine; Emergency Provider Emergency Medicine; PCP Internal Medicine; Visit Provider Hospitalist
DX: A41.9 Sepsis, unspecified organism (principal); I46.9 Cardiac arrest, cause unspecified; J18.9 Pneumonia, unspecified organism; R65.21 Severe sepsis with septic shock; J96.21 Acute and chronic respiratory failure with hypoxia; J44.1 Chronic obstructive pulmonary disease with (acute) exacerbation; J44.0 Chronic obstructive pulmonary disease with (acute) lower respiratory infection; I50.32 Chronic diastolic (congestive) heart failure; N17.9 Acute kidney failure, unspecified; J10.1 Influenza due to other identified influenza virus with other respiratory manifestations; E11.22 Type 2 diabetes mellitus with diabetic chronic kidney disease; N18.30 Chronic kidney disease, stage 3 unspecified; I27.20 Pulmonary hypertension, unspecified; Z86.718 Personal history of other venous thrombosis and embolism; Z95.828 Presence of other vascular implants and grafts; I35.0 Nonrheumatic aortic (valve) stenosis; Z99.81 Dependence on supplemental oxygen; I95.9 Hypotension, unspecified; Z87.440 Personal history of urinary (tract) infections; Z51.5 Encounter for palliative care
CPT/HCPCS: 36415; 36416; 36592; 36600; 51702; 71045; 80048; 80051; 80053; 81001; 82330; 82803; 82805; 82962; 83735; 83880; 84100; 84145; 84484; 85007; 85025; 85378; 87040; 87070; 87077; 87150; 87186; 87205; 87637; 93005; 94002; 94003; 94640; 94660; 94799; 96372; 96374; 96376; 99285; G0378; J1650; J2060; J2185; J2250; J2270; J2405; J2470; J2598; J2704; J2919; J3010; J3370; J3490; J7050; J7120; J7626; J9999; Q3014